=== PATIENT | female | born 1965 | race Caucasian/White ===

== ENCOUNTER → 2016-10-24 | Outpatient (CLI) | payer BC ==
[~2016-10-24] MED LIST: BIOT1CAP8 PO; FLX5 PO; INSHRIE; INSUINJ17 SC; LIDO5DIS10 TD; MAGN250T3 PO; MAGN250T8 PO; NF656 TD; TPN IV; TRAM-10 PO; [UNRECOGNIZED DRUG - CODE] IV; [UNRECOGNIZED DRUG - OTHER] INJ
[2016-10-24 13:26] LABS: BLOOD UREA NITROGEN 50 mg/dl (7-18); BUN/CREATININE RATIO 72.2 (10-20); CALCIUM 8.6 mg/dl (8.5-10.1); CARBON DIOXIDE 29 mmol/L (21-32); CHLORIDE 100 mmol/L (98-107); CREATININE 0.69 mg/dl (0.60-1.20); GLUCOSE 107 mg/dl (70-99); MAGNESIUM 2.2 mg/dl (1.8-2.4); PHOSPHORUS 3.1 mg/dl (2.5-4.9); POTASSIUM 4.2 mmol/L (3.5-5.1); SODIUM 139 mmol/L (136-145)
== END | disposition home or self-care (01) ==
LOC: C.LABSPEC 12:03
PROVIDERS: ATTEND Internal Medicine
DX: K56.60 Unspecified intestinal obstruction (principal)

== ENCOUNTER 2016-11-06 09:55 | Emergency (ER) | payer BC ==
[~2016-11-06] VITALS: Ht 162.6 cm; Wt 45.1 kg
[~2016-11-06 09:55] MED LIST changes: -INSHRIE; -MAGN250T8 PO; -NF656 TD
[2016-11-06 10:25] VITALS: TEMP 36.8; Ht 162.6 cm; Wt 45.1 kg
[2016-11-06] MEDS ORDERED: HYDROmorphone INJ 1 MG/ML SYR IM STA ×2 (10:47→13:10)
--- NOTE | 2016-11-06 10:53 | EMERGENCY ROOM VISIT NOTE ---
History Report prepared by Valeibteodora: Leti Young Under the Supervision of: Dr. Jorge Munson M.D. First contact with patient: 10:39 Chief Complaint: OTHER COMPLAINT Stated Complaint: PORT LEAKING History of Present Illness The patient is a 51 year old female who presents to the Emergency Room with complaints of persistent issues with her medi-port for the past several weeks. She is accompanied by her . She reports the right side of her dual port has been leaking fluid when she has IV fluids or medications administered. This morning around 0300 she was supposed to have TPN administered when she noticed it was leaking again. The port was placed by Dr. Lopez of [facility] [place] in November 2014. The patient states her home health nurses have called his office, but Dr. Lopez has not actually seen her for the issue of leaking yet. The patient also complains of some back pain today, but notes she currently has 2 spinal compression fractures. 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 A total of 6 systems reviewed and were otherwise negative. 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 (5) Fever (6) Malabsorption syndrome (7) Pancreatitis (8) Pancreatitis (9) Peg tube (10) Pelvic Abscess (11) Radiation Gastroenterit (12) SEPSIS MOST LIKELY DUE TO LINE INFECTION Family History Cancer Diabetes mellitus Hypertension Social History Smoking Status: Never Smoker Alcohol Use: none Drug Use: none Marital Status: Housing Status: lives with family Occupation Status: unemployed Current/Historical Medications Scheduled Biotin (Biotin), 5,000 MCG PO BID Famotidine (Famotidine), 20 MG INJ HS Insulin Human Regular (Humulin R), 14 UNITS DAILY Magnesium (Magnesium 250 mg), 1 TAB PO QPM [Tpn], 2,300 ML IV HS Scheduled PRN Lidocaine (Lidoderm Patch 5%), 1 PATCH TD ONAMOFFPM PRN for Pain Tramadol (Ultram), 50 MG PO Q4H PRN for Pain Miscellaneous Medications Dextrose W/ Sodium Chloride (Dextrose 2.5%/Nacl 0.45%) Allergies Coded Allergies: Ibuprofen (Verified Allergy, Unknown, RINGING IN EARS,PARTIAL LOSS HEARING , 11/06/16) Ketorolac Tromethamine (Verified Allergy, Unknown, ROARING SOUND IN EARS, 11/06/16) NSAIDs (Verified Allergy, Unknown, RINGING IN EARS, 11/06/16) Zoledronic Acid (Verified Allergy, Unknown, FLU LIKE SYMPTOMS SEVERE HEADACHE, 11/06/16) Promethazine (Verified Adverse Reaction, Mild, RESTLESS LEGS, 11/06/16) Alprazolam (Verified Adverse Reaction, Unknown, LOSS OF HEARING, 11/06/16) ringing in ears Aspirin (Verified Adverse Reaction, Unknown, RINGING IN EARS,PARTIAL HEARING LOSS, 11/06/16) RINGING IN EARS,PARTIAL HEARING LOSS Ketorolac (Verified Adverse Reaction, Unknown, ROARING IN EARS, 11/06/16) ROARING SOUND IN EARS Vancomycin (Verified Adverse Reaction, Unknown, ZACHERY SYNDROME, 11/06/16) Physical Exam Vital Signs Date Time Temp Pulse Resp B/P Pulse Ox O2 Delivery O2 Flow Rate FiO2 11/06/16 14:40 83 18 110/64 95 11/06/16 14:15 83 18 110/64 95 Room Air 11/06/16 12:14 75 18 122/71 100 Room Air 11/06/16 10:25 36.8 98 18 125/65 97 Room Air Physical Exam GENERAL: Patient is unwell appearing and in mild distress. HEENT: No acute trauma, normocephalic atraumatic, mucous membranes moist, no nasal congestion, no scleral icterus. NECK: No stridor, no adenopathy, no meningismus, trachea is midline. LUNGS: No dyspnea. Clear to auscultation and equal bilaterally. No wheeze, no rhonchi. CHEST: Port in place in right upper chest, currently accessed on the right side. HEART: Regular rate and rhythm. No murmurs, rubs, gallops appreciated. EXTREMITIES: Normal motion all extremities, no cyanosis, no edema. NEUROLOGIC: Alert and oriented, no acute motor or sensory deficits, no focal weakness, cranial nerves grossly intact. SKIN: No rash, no jaundice, no diaphoresis. Medical Decision & Procedures Medications Administered Medications (Trade) Dose Ordered Sig/Blas Route Start Time Stop Time Status Last Admin Dose Admin Hydromorphone HCl (Dilaudid Inj) 1 mg NOW STAT IM 11/06/16 10:47 11/06/16 10:48 DC 11/06/16 11:48 1 MG Hydromorphone HCl (Dilaudid Inj) 1 mg NOW STAT IM 11/06/16 13:10 11/06/16 13:11 DC 11/06/16 13:19 1 MG ED Course 1041: The patient was evaluated in room B8. A complete history and physical exam was performed. 1047: Dilaudid 1 mg IM. 1050: I have requested nursing contact the IV team. 1130: IV team is requesting that Activase be ordered for the patient. 1130: Activase Cathflo 2 mg IV. 1250: I reevaluated the patient. She is requesting more pain medication. I will place orders. 1310: Dilaudid 1 mg IM. 1355: I reevaluated the patient. She is feeling better. I discussed her results and discharge instructions and she verbalized complete understanding and agreement. Medical Decision Pleasant 51 yr old female with right upper chest double access med port that right side have been leaking and left side won't flush. IV team down to evaluate and Activase given with improvement in flow. Able to use left port without issue. Monitored over a few hours with continued working. Given Periodic IM dilaudid for chornic back pain worsened from laying in bed. Makes clear this is not unusual for her and no neuro deficits. Impression Primary Impression: Central line clotted Scribe Attestation The scribe's documentation has been prepared under my direction and personally reviewed by me in its entirety. I confirm that the note above accurately reflects all work, treatment, procedures, and medical decision making performed by me. Departure Information Dispostion Home / Self-Care Referrals Villa Carpenter M.D. (PCP) Patient Instructions My [facility] Additional Instructions Please follow up with your Vascular Surgeon or General Surgeon for further evaluation of your port. Return if bleeding, infection, difficulty breathing, or other concerns. Problem Qualifiers Primary Impression: Central line clotted Encounter type: initial encounter Qualified Codes: T82.594A - Other mechanical complication of infusion catheter, initial encounter
[2016-11-06] MEDS ORDERED: ALTEPLASE, RECOMBINANT 1 MG/ML 2 ML VIAL IV ONE (11:30)
[2016-11-06] MEDS ORDERED: INSHRIE (13:34)
[2016-11-06] MEDS ORDERED: NF656 TD (13:34)
[2016-11-06 14:40] VITALS: BP 110/64; PULSE 83; O2SAT 95
== END 2016-11-06 14:40 | disposition home or self-care (01) ==
LOC: C.EDB 09:57
DX: T82.594A Other mechanical complication of infusion catheter, initial encounter (principal); Y84.9 Medical procedure, unspecified as the cause of abnormal reaction of the patient, or of later complication, without mention of misadventure at the time of the procedure; K90.9 Intestinal malabsorption, unspecified; K85.90 Acute pancreatitis without necrosis or infection, unspecified; Z80.9 Family history of malignant neoplasm, unspecified; Z83.3 Family history of diabetes mellitus; Z82.49 Family history of ischemic heart disease and other diseases of the circulatory system; Z79.4 Long term (current) use of insulin; Z79.899 Other long term (current) drug therapy

== ENCOUNTER 2016-11-18 09:33 | Emergency (ER) | payer BC ==
[~2016-11-18] VITALS: Ht 162.6 cm; Wt 44.9 kg
[~2016-11-18 09:33] MED LIST changes: -FLX5 PO; +INSHRIE; -INSUINJ17 SC; -LIDO5DIS10 TD; +NF656 TD
[2016-11-18 09:40] VITALS: TEMP 36.8; Ht 162.6 cm; Wt 44.9 kg
[2016-11-18] MEDS ORDERED: HYDROmorphone INJ 1 MG/ML SYR IM ONE (11:15)
--- NOTE | 2016-11-18 14:03 | DIAGNOSTIC IMAGING REPORT ---
A-PORT CHECK CLINICAL HISTORY: LEAKING CATH, DOUBLE LUMEN CATH COMPARISON STUDY: None FLUOROSCOPY TIME: 0.3 minutes. FINDINGS: The right side of the port was initially cannulated. Retrograde passage of contrast noted was noted to the tip of the catheter. At this point only a trace amount of contrast was seen traversing the tip of the lumen of the catheter. This appearance consistent with that of a fibrin sheath formation distally. Was subsequently cannulized, retrograde passage of contrast is noted throughout the bulk of the catheter of the left port Only a trace amount of contrast is seen distal to the tip of the catheter of the left port. High-grade fibrin sheath distally is again suspected. The proximal aspects of the right as well as left catheter were patent. There is no evidence for contrast extravasation. IMPRESSION: 1. Right port and catheter demonstrate near occlusion at its distal aspect with only a trace amount of contrast traversing the tip of the catheter. 2. The bulk of the right catheter length is intact no evidence for extravasation. 3. The left port and catheter also demonstrate near occlusive change at its distal aspect. Only a trace amount of contrast seen to pass the distal tip of the catheter 4. The dual lumen catheter therefore demonstrates near occlusion at and are immediately adjacent to the inferior tip of the catheter lumens, consistent with that of fibrin sheath formation. 5. The catheters and port, show no evidence for breakage or extravasation Electronically signed by: Leonard Becerra M.D. 11/18/2016 2:02 PM Dictated Date/Time: 11/18/2016 1:54 PM
[2016-11-18] MEDS ORDERED: ALTEPLASE, RECOMBINANT 1 MG/ML 2 ML VIAL IV ONE ×2 (15:00→15:01)
[2016-11-18] MEDS ORDERED: HYDROmorphone INJ 1 MG/ML SYR IM STA (15:44)
--- NOTE | 2016-11-18 17:23 | EMERGENCY ROOM VISIT NOTE ---
ED Visit Note First contact with patient: 09:44 Chief Complaint: My A port is leaking. History of Present Illness: Ms. Lopez is a 51-year-old white female who ambulates into the ED accompanied by her complaining of leakage from her A port. Historically patient reports this is been a chronic issue and has been occurring for at least the last 6-7 weeks. She reports she has been seen by her vascular surgery and her home health team. Or records indicate that she was here on November 06 and the port appear occluded and she received Activase. This cleared report she was discharged home. Patient reports over the last week whenever and attempted to put IV fluids until report she has noticed that it has been leaking. She reports not severely but multiple drops during her infusion. She has not identified any aggravating or alleviating factors related to the leakage. She reports her home IV team has manipulated her port site and has not been able to stop the leaking. She does report occasionally the leakage is slightly blood-tinged. She denies any associated symptoms. Additionally during her stay in emergency department she reports she is having ongoing back pain related to 2 spinal compression fractures. Review of Systems: As noted above in history of present illness. All body systems were reviewed and found to be negative as noted above. 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 Dextrose 2.5%/Nacl 0.45% (Dextrose W/ Sodium Chloride) 1 Inj Inj 08/08/16 Reported 40 meq potassium Ultram (Tramadol HCl) 50 Mg Tab 50 Mg PO Q4H PRN 08/03/15 Reported Biotin 1 Mg Cap 5,000 Mcg PO BID 10/06/14 Reported Famotidine 10 Mg/Ml Inj 20 Mg INJ HS 06/02/14 Reported INJECT INTO TPN BAG ONCE DAILY. Magnesium 250 mg (Magnesium) Unknown Strength Tab 1 Tab PO AMPM 10/22/13 Reported [Tpn] 2,300 Ml IV HS 05/21/09 Reported INFUSE DAILY OVER 11 HOURS. 1 BAG WITH LIPIDS AND 6 BAGS WITHOUT LIPIDS. TOTAL = 7 BAGS. Allergies to Medications: Ibuprofen, ketorolac tromethamine, NSAIDs, promethazine, alprazolam, aspirin, vancomycin. Social History: Patient is not employed; she lives with her and feels safe in her home environment; she denies tobacco and alcohol use. Physical Examination: Vital Signs: Date Time Temp Pulse Resp B/P Pulse Ox O2 Delivery O2 Flow Rate FiO2 11/18/16 15:58 91 20 107/83 99 Room Air 11/18/16 13:02 79 17 134/72 99 11/18/16 11:06 85 18 133/74 99 Room Air 11/18/16 09:40 36.8 101 17 130/59 98 Room Air GENERAL: 51-year-old female in mild distress due to pain, nontoxic-appearing, afebrile and hemodynamically stable. NEUROLOGICAL: Awake, alert and oriented to person, place and time. Answering questions appropriately and following commands. Normal gait. Good hand eye coordination. No focal motor sensory deficits. SKIN: Warm, dry and pink. No soft tissue eruptions or trauma noted. HEENT: Atraumatic and normocephalic. PERRLA. Sclera white and conjunctiva pink. Pharynx is nonerythematous or edematous. No lymphadenopathy. Trachea midline. No jugular venous distention. BACK: Moderate tenderness over the lower thoracic and lumbar bony spine with no swelling, ecchymosis or step-offs. There is also moderate tenderness throughout the paraspinous muscles without palpable spasm. No CVA tenderness. THORAX: Lungs sounds are clear to auscultation and equal bilaterally with symmetrical chest wall. No wheezing, rales or rhonchi. HEART: Regular rate and rhythm. No gallops, rubs or murmurs are appreciated. ABDOMEN: Flat, soft and nontender. Positive bowel sounds in all quadrants. No guarding, rigidity or organomegaly. EXTREMITIES: Moves all extremities well on command and with purpose. All distal neurovascular statuses are intact and equal bilaterally. ED Course: Patient is assessed as noted above. IV team was consulted; verbally reported that there was leakage when they attempted to inject fluids into the port. Patient's case was consulted with Ms. Antonieta Anderson, PAC (Dr. Lopez, vascular surgery, physician photographer assistant). She recommended a contrast A port study. A Port Check: Was reviewed by myself and read by the radiologist showing the right catheter demonstrates near occlusion at its distal aspect with only a trace amount of contrast transvenous inferior to the tip of the Catheter. No evidence of extravasation. Left for catheter also demonstrates near occlusive at an arm ED adjacent to the inferior tip of the catheter movements consistent with primary and she formation. The catheter is in port show no evidence of breakage or extravasation. Patient's case was reconsulted with Ms. Anderson. She reports after reviewing the case with Dr. Lopez that both sides of her poor should receive 2 mg of Activase so her fiber is occlusion could be resolved. She also reported that if the occlusion was not resolved she should be admitted to the hospital for port revision. Patient received 2 mg of Activase on both sides of her A Port by the IV team; it was reported that the ports should be observed and tested in 4 hours. Patient's case was consulted with case management for possible admission. Patient's care was transferred to Slade Agudelo PA-C at the end of my shift pending reevaluation of the port. Patient was educated about today's findings. Clinical Impression: A port occlusion. Ongoing back pain. Disposition and Plan: Please see Mr. Slade Agudelo's PAC notes and orders for final disposition and plan.
--- NOTE | 2016-11-18 21:49 | EMERGENCY ROOM VISIT NOTE ---
ED Visit Note First contact with patient: 17:23 Patient care was assumed from Benja Moe PA-C at the time of shift change. Please see . Rafita's dictation for full history of present illness and Emergency Department course prior to my assumption of care. In short, the patient has a port that is malfunctioning. IV team has been contacted and they were able to reestablish full functionality of the port. The patient is felt to be stable for discharge home. She evidently has upcoming appointments with her surgeon, and was asked keep these appointments. She was otherwise invited back to the ER with any new, worsening, or concerning symptoms. 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 Status: Chronic (5) Malabsorption syndrome Status: Chronic (6) Pancreatitis Status: Chronic (7) Pancreatitis Status: Resolved (8) Peg tube Status: Chronic (9) Radiation Gastroenterit Status: Chronic Current/Historical Medications Scheduled Biotin (Biotin), 5,000 MCG PO BID Famotidine (Famotidine), 20 MG INJ HS Insulin Human Regular (Humulin R), 14 UNITS DAILY Magnesium (Magnesium 250 mg), 1 TAB PO AMPM [Tpn], 2,300 ML IV HS Scheduled PRN Lidocaine (Lidoderm Patch 5%), 1 PATCH TD ONAMOFFPM PRN for Pain Tramadol (Ultram), 50 MG PO Q4H PRN for Pain Miscellaneous Medications Dextrose W/ Sodium Chloride (Dextrose 2.5%/Nacl 0.45%) Allergies Coded Allergies: Ibuprofen (Verified Allergy, Unknown, RINGING IN EARS,PARTIAL LOSS HEARING , 11/06/16) Ketorolac Tromethamine (Verified Allergy, Unknown, ROARING SOUND IN EARS, 11/06/16) NSAIDs (Verified Allergy, Unknown, RINGING IN EARS, 11/06/16) Zoledronic Acid (Verified Allergy, Unknown, FLU LIKE SYMPTOMS SEVERE HEADACHE, 11/06/16) Promethazine (Verified Adverse Reaction, Mild, RESTLESS LEGS, 11/06/16) Alprazolam (Verified Adverse Reaction, Unknown, LOSS OF HEARING, 11/06/16) ringing in ears Aspirin (Verified Adverse Reaction, Unknown, RINGING IN EARS,PARTIAL HEARING LOSS, 11/06/16) RINGING IN EARS,PARTIAL HEARING LOSS Ketorolac (Verified Adverse Reaction, Unknown, ROARING IN EARS, 11/06/16) ROARING SOUND IN EARS Vancomycin (Verified Adverse Reaction, Unknown, ZACHERY SYNDROME, 11/06/16) Vital Signs Date Time Temp Pulse Resp B/P Pulse Ox O2 Delivery O2 Flow Rate FiO2 11/18/16 19:12 80 18 129/73 100 Room Air 11/18/16 17:26 81 17 103/67 99 Room Air 11/18/16 15:58 91 20 107/83 99 Room Air 11/18/16 13:02 79 17 134/72 99 11/18/16 11:06 85 18 133/74 99 Room Air 11/18/16 09:40 36.8 101 17 130/59 98 Room Air Medications Administered Medications (Trade) Dose Ordered Sig/Blas Route Start Time Stop Time Status Last Admin Dose Admin Hydromorphone HCl (Dilaudid Inj) 1 mg ONE ONCE IM 11/18/16 11:15 11/18/16 11:16 DC 11/18/16 11:08 1 MG Hydromorphone HCl (Dilaudid Inj) 1 mg NOW STAT IM 11/18/16 15:44 11/18/16 15:46 DC 11/18/16 15:55 1 MG Departure Information Impression Primary Impression: Central line clotted Dispostion Home / Self-Care Condition GOOD Referrals Carlos Verdugo D.O. (PCP) Forms HOME CARE DOCUMENTATION FORM, IMPORTANT VISIT INFORMATION Patient Instructions My [facility] Additional Instructions You were seen and evaluated today on an emergency basis only. This is not a substitute for, or an effort to provide, complete comprehensive medical care. It is not possible to recognize and treat all injuries or illnesses in a single emergency department visit. For this reason it is recommended that you followup with your surgeon for ongoing care and evaluation. Continue medications as prescribed You are welcome to return to the emergency department anytime with new, worsening, or concerning symptoms.
[2016-11-18 21:56] VITALS: BP 135/76; PULSE 75; O2SAT 99
== END 2016-11-18 21:56 | disposition home or self-care (01) ==
LOC: C.EDB 09:35
DX: T82.898A Other specified complication of vascular prosthetic devices, implants and grafts, initial encounter (principal); Y84.9 Medical procedure, unspecified as the cause of abnormal reaction of the patient, or of later complication, without mention of misadventure at the time of the procedure; K90.9 Intestinal malabsorption, unspecified; K86.1 Other chronic pancreatitis; Z85.9 Personal history of malignant neoplasm, unspecified; Z79.899 Other long term (current) drug therapy

== ENCOUNTER → 2016-11-21 | Outpatient (CLI) | payer BC ==
[~2016-11-21] MED LIST changes: +MAGN250T8 PO; +PLEC3TAB
[2016-11-21 14:16] LABS: BLOOD UREA NITROGEN 45 mg/dl (7-18); BUN/CREATININE RATIO 69.8 (10-20); CALCIUM 8.9 mg/dl (8.5-10.1); CARBON DIOXIDE 29 mmol/L (21-32); CHLORIDE 99 mmol/L (98-107); CREATININE 0.64 mg/dl (0.60-1.20); GLUCOSE 98 mg/dl (70-99); MAGNESIUM 2.3 mg/dl (1.8-2.4); POTASSIUM 4.5 mmol/L (3.5-5.1); SODIUM 137 mmol/L (136-145)
[2016-11-21 14:17] LABS: PHOSPHORUS 3.7 mg/dl (2.5-4.9)
--- NOTE | 2016-12-02 08:15 | CODING QUERY NO DIAGNOSIS ---
TREATMENT RENDERED WITHOUT A DIAGNOSIS : 1965 To promote full compliance with coding requirements relating to patient care, physician participation is requested in all cases of proofsheet corrector uncertainty. Please assist us with providing a diagnosis/symptom for the test(s) below: A diagnosis/symptom was not documented on your Order. A valid diagnosis/symptom is required to bill all insurances. Please remember that we are unable to code a diagnosis of rule out, probable, possible, questionable, or suspected. Tests that require a diagnosis: DOS: 11/21/16 * MAGNESIUM DIAGNOSIS: * PHOSPHORUS DIAGNOSIS: * PARTIAL RENAL PROFILE DIAGNOSIS: * CALCIUM, IONIZED DIAGNOSIS: Provider Signature: Date: Thank you Michelle Nicholas Health Information Management Once completed, please kindly fax back to [phone] For questions please call [phone]
== END | disposition home or self-care (01) ==
LOC: C.LABSPEC 13:14
PROVIDERS: ATTEND Internal Medicine
DX: E83.50 Unspecified disorder of calcium metabolism (principal)

== ENCOUNTER 2016-12-03 10:11 | Emergency (ER) | payer BC ==
[~2016-12-03] VITALS: Ht 162.6 cm; Wt 44.8 kg
[~2016-12-03 10:11] MED LIST changes: -MAGN250T8 PO; -PLEC3TAB
[2016-12-03 10:24] VITALS: TEMP 36.9; Ht 162.6 cm; Wt 44.8 kg
[2016-12-03] MEDS ORDERED: LORAZEPAM 2 MG/ML 1 ML VIAL IV STA (11:12)
[2016-12-03] MEDS ORDERED: HYDROmorphone INJ 1 MG/ML SYR IV ONE (11:15)
--- NOTE | 2016-12-03 11:15 | EMERGENCY ROOM VISIT NOTE ---
History Report prepared by Pankaj: Karan Mitchell Under the Supervision of: Dr. Ranjan Tejada M.D. First contact with patient: 11:05 Chief Complaint: OTHER COMPLAINT Stated Complaint: A PORT IS LEAKING ONLY SOURCE OF HYDRATION History of Present Illness The patient is a 51 year old female who presents to the Emergency Room with complaints of recurrent A-port leakage since yesterday. The patient has a double port. The right side was leaking pink fluid last night that appeared to contain blood. She also noticed some leakage from the left side. Neither side of the port is currently leaking. The patient was in the ED 13 days ago for the same complaint. The patient has been receiving TPN since 2001. She has a history of radiation therapy for cancer as well as back surgeries. The patient currently complains of back pain secondary to compression fractures. She denies chest pain, shortness of breath, or abdominal pain. Source of History: patient Onset: yesterday Position: other (right A-port) Quality: other (pink discharge) Timing: other (recurrent) Associated Symptoms: No SOB, No abdominal pain, No chest pain Review of Systems All systems have been listed, reviewed, and are negative other than those previously mentioned. Please see Additional Medical History Sheet. 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 (5) Fever (6) Malabsorption syndrome (7) Pancreatitis (8) Pancreatitis (9) Peg tube (10) Pelvic Abscess (11) Radiation Gastroenterit (12) SEPSIS MOST LIKELY DUE TO LINE INFECTION Family History Cancer Diabetes mellitus Hypertension Social History Smoking Status: Never Smoker Alcohol Use: none Drug Use: none Marital Status: Housing Status: lives with family Occupation Status: unemployed Current/Historical Medications Scheduled Biotin (Biotin), 5,000 MCG PO BID Famotidine (Famotidine), 20 MG INJ HS Insulin Human Regular (Humulin R), 14 UNITS DAILY Magnesium (Magnesium 250 mg), 1 TAB PO AMPM Tpn Infusion (Tpn Infusion), 2,300 ML IV HS Scheduled PRN Lidocaine (Lidoderm Patch 5%), 1 PATCH TD ONAMOFFPM PRN for Pain Tramadol (Ultram), 50 MG PO Q4H PRN for Pain Miscellaneous Medications Dextrose W/ Sodium Chloride (Dextrose 2.5%/Nacl 0.45%) Allergies Coded Allergies: Ibuprofen (Verified Allergy, Unknown, RINGING IN EARS,PARTIAL LOSS HEARING , 12/03/16) Ketorolac Tromethamine (Verified Allergy, Unknown, ROARING SOUND IN EARS, 12/03/16) NSAIDs (Verified Allergy, Unknown, RINGING IN EARS, 12/03/16) Zoledronic Acid (Verified Allergy, Unknown, FLU LIKE SYMPTOMS SEVERE HEADACHE, 12/03/16) Promethazine (Verified Adverse Reaction, Mild, RESTLESS LEGS, 12/03/16) Alprazolam (Verified Adverse Reaction, Unknown, LOSS OF HEARING, 12/03/16) ringing in ears Aspirin (Verified Adverse Reaction, Unknown, RINGING IN EARS,PARTIAL HEARING LOSS, 12/03/16) RINGING IN EARS,PARTIAL HEARING LOSS Ketorolac (Verified Adverse Reaction, Unknown, ROARING IN EARS, 12/03/16) ROARING SOUND IN EARS Vancomycin (Verified Adverse Reaction, Unknown, ZACHERY SYNDROME, 12/03/16) Physical Exam Vital Signs Date Time Temp Pulse Resp B/P Pulse Ox O2 Delivery O2 Flow Rate FiO2 12/03/16 12:35 88 18 140/70 97 Room Air 12/03/16 10:24 36.9 96 18 125/76 97 Room Air Physical Exam GENERAL: Patient awake, alert, oriented x 3. Patient follows commands. Patient does not appear toxic. Patient is adequately hydrated and well- nourished. SKIN: No erythema, pallor, cyanosis or rash HEENT: Normal head, pupils equal, reactive to light and accommodation. LUNGS: Clear to auscultation. No wheezes, no rales, no rhonchi. HEART: No murmurs. No gallops. No rubs CHEST: Port in place upper chest. ABDOMEN: Multiple old well-healed scars, peg tube in place. EXTREMITIES: No signs of trauma. No pedal or pretibial edema. No calf or thigh tenderness. NEUROLOGIC: Cranial nerves II-XII within normal limits. No gross motor sensory function deficits. Medical Decision & Procedures Medications Administered Medications (Trade) Dose Ordered Sig/Blas Route Start Time Stop Time Status Last Admin Dose Admin Lorazepam (Ativan Inj) 1 mg NOW STAT IV 12/03/16 11:12 12/03/16 11:13 DC 12/03/16 12:28 1 MG Hydromorphone HCl (Dilaudid Inj) 0.5 mg STK-MED ONCE .ROUTE 12/03/16 12:20 12/03/16 12:23 DC 12/03/16 12:27 0.5 MG ED Course 1108: Past medical records reviewed. The patient was evaluated in room B6. A complete history and physical examination was performed. 1112: Ativan 1 mg IV. 1115: Dilaudid 0.5 mg IV. 1234: IV team successfully fixed the leak. 1250: Reevaluated the patient. She seemed to be doing better. She will be discharged. Medical Decision Diagnoses considered include port malfunction vs infection. Examination of the port site does not reveal infection. There is some leakage there. IV team evaluated the patient and the port. This resulted in at least a temporary fix. It was not leaking at time of departure. The patient will need to follow-up with Gen. surgery to evaluate the need for changing the port. Impression Primary Impression: Vascular port complication Scribe Attestation The scribe's documentation has been prepared under my direction and personally reviewed by me in its entirety. I confirm that the note above accurately reflects all work, treatment, procedures, and medical decision making performed by me. Departure Information Dispostion Home / Self-Care Referrals Carlos Verdugo D.O. (PCP) Nicho Beltran M.D. Forms HOME CARE DOCUMENTATION FORM, IMPORTANT VISIT INFORMATION Patient Instructions My [facility] Additional Instructions Follow-up with Dr. Beltran regarding your port. Continue all of your current medications and TPN as prescribed.
[2016-12-03] MEDS ORDERED: TPN IV (11:21)
[2016-12-03] MEDS ORDERED: HYDROmorphone INJ 0.5 MG/0.5 ML SYR ONE (12:20)
[2016-12-03 12:35] VITALS: BP 140/70; PULSE 88; O2SAT 97
== END 2016-12-03 13:10 | disposition home or self-care (01) ==
LOC: C.EDB 10:12
DX: T82.514A Breakdown (mechanical) of infusion catheter, initial encounter (principal); Y84.8 Other medical procedures as the cause of abnormal reaction of the patient, or of later complication, without mention of misadventure at the time of the procedure; Z79.4 Long term (current) use of insulin

== ENCOUNTER 2016-12-12 10:34 | Emergency (ER) | payer BC ==
[~2016-12-12] VITALS: Ht 162.6 cm; Wt 43.8 kg
[2016-12-12 10:43] VITALS: TEMP 36.6; Ht 162.6 cm; Wt 43.8 kg
[2016-12-12] MEDS ORDERED: ONDANSETRON INJ 2 MG/ML 2 ML VIAL IV STA (11:03)
[2016-12-12] MEDS ORDERED: MoRPHine SULFATE 4 MG/ML 1 ML CARP\\VIAL IV STA (11:03)
[2016-12-12] MEDS ORDERED: HYDROmorphone INJ 0.5 MG/0.5 ML SYR IV STA (11:29)
[2016-12-12] MEDS: SODIUM CHLORIDE 0.9% 1000ML 1,000 ML IV STA ×2 (11:58→12:20)
--- NOTE | 2016-12-12 12:27 | DIAGNOSTIC IMAGING REPORT ---
CHEST ONE VIEW PORTABLE CLINICAL HISTORY: port in right chest dyspnea COMPARISON STUDY: 07/31/2016 FINDINGS: Central catheter in superior vena cava. No evidence pneumothorax. Lungs are clear. Diaphragms smooth. IMPRESSION: No acute process. Central catheter ends in the superior vena cava. Electronically signed by: Leonard Becerra M.D. 12/12/2016 12:25 PM Dictated Date/Time: 12/12/2016 12:25 PM
[2016-12-12] MEDS ORDERED: ALTEPLASE, RECOMBINANT 1 MG/ML 2 ML VIAL IV ONE ×2 (12:45→13:15)
[2016-12-12] MEDS ORDERED: LORAZEPAM 2 MG/ML 1 ML VIAL IV STA (12:45)
[2016-12-12 14:39] VITALS: BP 120/59; PULSE 78; O2SAT 100
--- NOTE | 2016-12-12 17:12 | EMERGENCY ROOM VISIT NOTE ---
History Report prepared by Pankaj: Adriel Deras Under the Supervision of: Dr. Karlo Mireles D.O. (Adriel Deras) First contact with patient: 10:47 Chief Complaint: OTHER COMPLAINT Stated Complaint: LEAKING A-PORT (SORE) History of Present Illness The patient is a 51 year old female who presents to the Emergency Room with complaints of an on and off leaking A-port since March. The patient states that the port was put in November 2014. The patient states that she has an A-port because she had small bowel damage and a bowel obstruction for the past 2 and a half years. The patient has a history of radiation therapy for cancer and back surgeries. She states that now she does not have bowel movements, and she has to drain the port every 2-4 hours every day when she eats or drinks. She states that she gets TPN since 2001 and hydration daily. The patient states that the port leaks around three times per week, and then it gets plugged, and this helps for a week or two. The patient states that she has been to the ER every 2 weeks or so for the past months. The patient is additionally complaining of nausea. She states that she has a peg button in, and she is getting a new one soon. Source of History: patient Onset: march Position: other (A-port) Quality: other (leaking port) Timing: other (on and off) Associated Symptoms: + abdominal pain, + nausea Review of Systems See HPI for pertinent positives & negatives. A total of 10 systems reviewed and were otherwise negative. 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 (5) Fever (6) Malabsorption syndrome (7) Pancreatitis (8) Pancreatitis (9) Peg tube (10) Pelvic Abscess (11) Radiation Gastroenterit (12) SEPSIS MOST LIKELY DUE TO LINE INFECTION Family History Cancer Diabetes mellitus Hypertension Social History Smoking Status: Former Smoker Alcohol Use: none Drug Use: none Marital Status: Housing Status: lives with family Occupation Status: unemployed Current/Historical Medications Scheduled Biotin (Biotin), 5,000 MCG PO BID Famotidine (Famotidine), 20 MG INJ HS Insulin Human Regular (Humulin R), 14 UNITS DAILY Magnesium (Magnesium 250 mg), 1 TAB PO AMPM Tpn Infusion (Tpn Infusion), 2,300 ML IV HS Scheduled PRN Lidocaine (Lidoderm Patch 5%), 1 PATCH TD ONAMOFFPM PRN for Pain Tramadol (Ultram), 50 MG PO Q4H PRN for Pain Miscellaneous Medications Dextrose W/ Sodium Chloride (Dextrose 2.5%/Nacl 0.45%), IV Allergies Coded Allergies: Ibuprofen (Verified Allergy, Unknown, RINGING IN EARS,PARTIAL LOSS HEARING , 12/12/16) Ketorolac Tromethamine (Verified Allergy, Unknown, ROARING SOUND IN EARS, 12/12/16) NSAIDs (Verified Allergy, Unknown, RINGING IN EARS, 12/12/16) Zoledronic Acid (Verified Allergy, Unknown, FLU LIKE SYMPTOMS SEVERE HEADACHE, 12/12/16) Promethazine (Verified Adverse Reaction, Mild, RESTLESS LEGS, 12/12/16) Alprazolam (Verified Adverse Reaction, Unknown, LOSS OF HEARING, 12/12/16) ringing in ears Aspirin (Verified Adverse Reaction, Unknown, RINGING IN EARS,PARTIAL HEARING LOSS, 12/12/16) RINGING IN EARS,PARTIAL HEARING LOSS Ketorolac (Verified Adverse Reaction, Unknown, ROARING IN EARS, 12/12/16) ROARING SOUND IN EARS Vancomycin (Verified Adverse Reaction, Unknown, ZACHERY SYNDROME, 12/12/16) Physical Exam Vital Signs Date Time Temp Pulse Resp B/P Pulse Ox O2 Delivery O2 Flow Rate FiO2 12/12/16 14:39 78 16 120/59 100 Room Air 12/12/16 10:43 36.6 101 20 19/62 96 Room Air Physical Exam GENERAL: Sittting up in bed, no acute distress, non-toxic EYE EXAM: normal conjunctiva OROPHARYNX: no exudate, no erythema, lips, buccal mucosa, and tongue normal and mucous membranes are moist NECK: supple, no nuchal rigidity, no adenopathy, non-tender LUNGS: Clear to auscultation. Normal chest wall mechanics HEART: no murmurs, S1 normal and S2 normal CHEST: Port located in the right chest without surrounding erythema or leakage. ABDOMEN: Multiple old incisions with peg tube in place. Abdomen soft, non-tender , normo-active bowel sounds, no masses, no rebound or guarding. BACK: Back is symmetrical on inspection and there is no deformity, no midline tenderness, no CVA tenderness. SKIN: no rashes and no bruising UPPER EXTREMITIES: upper extremities are grossly normal. LOWER EXTREMITIES: No pitting edema. NEURO EXAM: Normal sensorium, cranial nerves II-XII grossly intact, normal speech, no gross weakness of arms, no gross weakness of legs. Gross sensation intact. Medical Decision & Procedures ER Provider Diagnostic Interpretation: Xray results per the radiologist and my interpretation. CHEST ONE VIEW PORTABLE CLINICAL HISTORY: port in right chest dyspnea COMPARISON STUDY: 07/31/2016 FINDINGS: Central catheter in superior vena cava. No evidence pneumothorax. Lungs are clear. Diaphragms smooth. IMPRESSION: No acute process. Central catheter ends in the superior vena cava. Electronically signed by: Leonard Becerra M.D. 12/12/2016 12:25 PM Dictated Date/Time: 12/12/2016 12:25 PM Medications Administered Medications (Trade) Dose Ordered Sig/Blas Route Start Time Stop Time Status Last Admin Dose Admin Sodium Chloride (Nss 1000ml) 1,000 ml @ 999 mls/hr Q1H1M STAT IV 12/12/16 11:03 12/12/16 12:03 DC 12/12/16 12:20 999 MLS/HR Ondansetron HCl (Zofran Inj) 4 mg NOW STAT IV 12/12/16 11:03 12/12/16 11:05 DC 12/12/16 11:56 4 MG Hydromorphone HCl (Dilaudid Inj) 0.5 mg NOW STAT IV 12/12/16 11:29 12/12/16 11:31 DC 12/12/16 11:56 0.5 MG Alteplase, Recombinant (Activase Cathflo) 2 mg ONE ONCE IV 12/12/16 12:45 12/12/16 12:46 DC 12/12/16 12:45 2 MG Lorazepam (Ativan Inj) 0.5 mg NOW STAT IV 12/12/16 12:45 12/12/16 12:46 DC 12/12/16 13:07 0.5 MG Alteplase, Recombinant (Activase Cathflo) 2 mg ONE ONCE IV 12/12/16 13:15 12/12/16 13:16 DC 12/12/16 13:22 2 MG ED Course ED COURSE: Vital signs were reviewed and showed Tachycardia The patients medical record was reviewed The above diagnostic studies were performed and reviewed. ED treatments and interventions as stated above. 1047: The patient was evaluated in room B3. A complete history and physical examination was performed. 1103: Zofran Inj 4mg IV, Morphine Sulfate Inj 4mg IV, Sodium Chloride 1000 ml @ 999 mls/hr IV 1129: Dilaudid Inj 0.5mg IV 1201: I reevaluated the patient, and IV team was in there 1243: I discussed the patient's case with Sophia Muhammad PA-C, and she recommended Activase through the port as last time it was clogged. 1245: Ativan Inj 0.5mg IV, Activase Cathflo 2mg IV 1315: Activase Cathflo 2mg IV 1437: There was blood return on both port sites and she is going to follow up with her PCP. 1449: Upon reevaluation, the patient is feeling better.I discussed my findings with the patient and she understands and agrees with the treatment plan. Based on the patients age, coexisting illnesses, exam and lab findings the decision to treat as an outpatient was made. The patient remained stable while under my care. The patient appeared well at the time of discharge. Medical Decision Patient is a 51-year-old female who presents the ER for leaking of her port along her right chest. She uses daily since 2001. Patient has not bites at this time. She was given Ativan and Dilaudid a she was tearful crying complaining of her chronic back pain and that she is very anxious. She was requesting a PICC line since she has been having this problem since this past February or March. Dr. Lopez placed the port and discussed my findings with Sophia from vascular surgery who recommended giving alteplase and if he clears out she can be followed up as an outpatient. IV team gave alteplase and then had complete blood return from both ports. Her chest x-ray was unremarkable. Patient understood the risk and benefits. Patient was discharged follow-up with general surgery and/or Dr. Lopez from vascular surgery. Discussed with Pt concerning signs and symptoms to watch out for. Pt was instructed to follow up with their PCP and discussed with the patient their option to return to the ED at anytime for persistent or worsening symptoms. The appropriate anticipatory guidance and out-patient management, including indications for return to the emergency department, were explained at length to the patient and understood. Consults Time Called: 1222 Consulting Physician: Sophia Muhammad PA-C Returned Call: 1248 I discussed the patient's case with Sophia Muhammad PA-C, and she recommended Activase through the port as last time it was clogged. Impression Primary Impression: Vascular port complication Scribe Attestation The scribe's documentation has been prepared under my direction and personally reviewed by me in its entirety. I confirm that the note above accurately reflects all work, treatment, procedures, and medical decision making performed by me. Departure Information Dispostion Home / Self-Care Referrals Villa Carpenter M.D. (PCP) Forms HOME CARE DOCUMENTATION FORM, IMPORTANT VISIT INFORMATION, WORK / SCHOOL INSTRUCTIONS Patient Instructions My [facility] Additional Instructions Please follow up with your primary care doctor or if you are a student [facility] services with in the next 24 hours. Any worsening of your symptoms, please return to the ED immediately. This includes unable to flush the port, leaking around the port, redness around the port, or any other concerning signs or symptoms from her standpoint. Please follow up with your vascular surgeon and Gen. surgery for your port. Please do not drive, drink or operate heavy machinery for the remainder of the day. Problem Qualifiers Primary Impression: Vascular port complication Encounter type: initial encounter Qualified Codes: T82.9XXA - Unspecified complication of cardiac and vascular prosthetic device, implant and graft, initial encounter
[2017-08-02] MEDS ORDERED: PLEC3TAB (09:55)
== END 2016-12-12 15:03 | disposition home or self-care (01) ==
LOC: C.EDB 10:35
DX: T82.9XXA Unspecified complication of cardiac and vascular prosthetic device, implant and graft, initial encounter (principal); X58.XXXA Exposure to other specified factors, initial encounter; K56.60 Unspecified intestinal obstruction; K86.1 Other chronic pancreatitis; Z87.19 Personal history of other diseases of the digestive system; Z87.891 Personal history of nicotine dependence; Z79.4 Long term (current) use of insulin; Z79.899 Other long term (current) drug therapy; Z88.1 Allergy status to other antibiotic agents; Z88.6 Allergy status to analgesic agent; Z88.8 Allergy status to other drugs, medicaments and biological substances; Z80.9 Family history of malignant neoplasm, unspecified; Z83.3 Family history of diabetes mellitus; Z82.49 Family history of ischemic heart disease and other diseases of the circulatory system

== ENCOUNTER → 2016-12-13 | Day surgery (SDC) | payer BC ==
[2016-12-06 13:06] VITALS: Ht 162.6 cm; Wt 43.6 kg
[~2016-12-13] VITALS: Ht 162.6 cm; Wt 43.6 kg
[~2016-12-13] MED LIST changes: +MAGN250T8 PO; +ONDANSETRON INJ 2 MG/ML 2 ML VIAL IV PRN; +PLEC3TAB
--- NOTE | 2016-12-13 08:18 | Endo History and Physical ---
History & Physical Date of Service: Dec 13, 2016. Chief Complaint: PEG TUBE CHANGE Referring Physician: dr. stover History of Present Illness Patient presents for feeding tube change today. Past Medical History Gastrointestinal Disorder, Reflux, Liver Disease Past Surgical History Hx Cardiac Surgery: No Hx Internal Defibrillator: No Hx Pacemaker: No Hx Abdominal Surgery: Yes (PEG TUBE PLACEMENT, LINETTE, RUPTURED BOWEL REPAIR) Hx of Implantable Prosthesis: No Hx Post-Op Nausea and Vomiting: No Hx Cancer Surgery: No Hx Thoracic Surgery: No Hx Orthopedic: Yes (SPINAL SURGERY X2) Hx Urinary Tract Surgery: No Family History Colon CA Social History Smoking Status: Former Smoker Hx Substance Use: No Hx Alcohol Use: No Allergies Coded Allergies: Ibuprofen (Verified Allergy, Unknown, RINGING IN EARS,PARTIAL LOSS HEARING , 12/12/16) Ketorolac Tromethamine (Verified Allergy, Unknown, ROARING SOUND IN EARS, 12/13/16) NSAIDs (Verified Allergy, Unknown, RINGING IN EARS, 12/13/16) Zoledronic Acid (Verified Allergy, Unknown, FLU LIKE SYMPTOMS SEVERE HEADACHE, 12/13/16) Promethazine (Verified Adverse Reaction, Mild, RESTLESS LEGS, 12/13/16) Alprazolam (Verified Adverse Reaction, Unknown, LOSS OF HEARING, 12/13/16) ringing in ears Aspirin (Verified Adverse Reaction, Unknown, RINGING IN EARS,PARTIAL HEARING LOSS, 12/13/16) RINGING IN EARS,PARTIAL HEARING LOSS Ketorolac (Verified Adverse Reaction, Unknown, ROARING IN EARS, 12/13/16) ROARING SOUND IN EARS Vancomycin (Verified Adverse Reaction, Unknown, ZACHERY SYNDROME, 12/13/16) Current Medications Reported Home Medications Medications Dose Route/Sig Max Daily Dose Days Date Category Dose Instructions Tpn Infusion (Total Parenteral Nutrition) 1 Ea Inj 2,300 Ml IV HS 12/03/16 Reported infuse daily over 11 hours. 1 bag with lipids. 6 without. Lidoderm Patch 5% (Lidocaine) 1 Ea Tdsy 1 Patch TD ONAMOFFPM PRN 11/06/16 Reported Humulin R (Insulin Human Regular) 100 Units/Ml Susp 14 Units DAILY 11/06/16 Reported INJECTS INTO TPN BAG DAILY. Dextrose 2.5%/Nacl 0.45% (Dextrose W/ Sodium Chloride) 1 Inj Inj IV 08/08/16 Reported 40 meq potassium 1 BAG 4HOURS EVERY DAY Ultram (Tramadol HCl) 50 Mg Tab 50 Mg PO Q4H PRN 08/03/15 Reported Biotin 1 Mg Cap 5,000 Mcg PO BID 10/06/14 Reported Famotidine 10 Mg/Ml Inj 20 Mg INJ HS 06/02/14 Reported INJECT INTO TPN BAG ONCE DAILY. Magnesium 250 mg (Magnesium) Unknown Strength Tab 1 Tab PO AMPM 10/22/13 Reported Vital Signs Weight (Kilograms): 43.64 Height (Feet): 5 Height (Inches): 4 Physical Exam General Appearance: no apparent distress Respiratory/Chest: Auscultation: breath sounds normal Cardiovascular: Heart Auscultation: RRR Abdomen: Inspection & Palpation: soft Assessment and Plan patient for feeding tube change
[2016-12-13 08:41] VITALS: BP 115/65; PULSE 81; O2SAT 98
--- NOTE | 2016-12-13 08:44 | Discharge Instructions ---
Endoscopy Patient Instructions Date / Procedure Performed Dec 13, 2016. Percutaneous Endoscopic Gastrotomy (P.E.G) Tube Replacement / Removal Allergy Information Coded Allergies: Ibuprofen (Verified Allergy, Unknown, RINGING IN EARS,PARTIAL LOSS HEARING , 12/12/16) Ketorolac Tromethamine (Verified Allergy, Unknown, ROARING SOUND IN EARS, 12/13/16) NSAIDs (Verified Allergy, Unknown, RINGING IN EARS, 12/13/16) Zoledronic Acid (Verified Allergy, Unknown, FLU LIKE SYMPTOMS SEVERE HEADACHE, 12/13/16) Promethazine (Verified Adverse Reaction, Mild, RESTLESS LEGS, 12/13/16) Alprazolam (Verified Adverse Reaction, Unknown, LOSS OF HEARING, 12/13/16) ringing in ears Aspirin (Verified Adverse Reaction, Unknown, RINGING IN EARS,PARTIAL HEARING LOSS, 12/13/16) RINGING IN EARS,PARTIAL HEARING LOSS Ketorolac (Verified Adverse Reaction, Unknown, ROARING IN EARS, 12/13/16) ROARING SOUND IN EARS Vancomycin (Verified Adverse Reaction, Unknown, ZACHERY SYNDROME, 12/13/16) Home Medication List Scheduled Biotin (Biotin), 5,000 MCG PO BID Famotidine (Famotidine), 20 MG INJ HS Insulin Human Regular (Humulin R), 14 UNITS DAILY Magnesium (Magnesium 250 mg), 1 TAB PO AMPM Tpn Infusion (Tpn Infusion), 2,300 ML IV HS Scheduled PRN Lidocaine (Lidoderm Patch 5%), 1 PATCH TD ONAMOFFPM PRN for Pain Tramadol (Ultram), 50 MG PO Q4H PRN for Pain Miscellaneous Medications Dextrose W/ Sodium Chloride (Dextrose 2.5%/Nacl 0.45%), IV Discharge Date / Findings Dec 13, 2016. Button Changed Today Medication Instructions Restart Stopped Medication(s): Reported Home Medications Medications Dose Route/Sig Max Daily Dose Days Date Category Dose Instructions Tpn Infusion (Total Parenteral Nutrition) 1 Ea Inj 2,300 Ml IV HS 12/03/16 Reported infuse daily over 11 hours. 1 bag with lipids. 6 without. Lidoderm Patch 5% (Lidocaine) 1 Ea Tdsy 1 Patch TD ONAMOFFPM PRN 11/06/16 Reported Humulin R (Insulin Human Regular) 100 Units/Ml Susp 14 Units DAILY 11/06/16 Reported INJECTS INTO TPN BAG DAILY. Dextrose 2.5%/Nacl 0.45% (Dextrose W/ Sodium Chloride) 1 Inj Inj IV 08/08/16 Reported 40 meq potassium 1 BAG 4HOURS EVERY DAY Ultram (Tramadol HCl) 50 Mg Tab 50 Mg PO Q4H PRN 08/03/15 Reported Biotin 1 Mg Cap 5,000 Mcg PO BID 10/06/14 Reported Famotidine 10 Mg/Ml Inj 20 Mg INJ HS 06/02/14 Reported INJECT INTO TPN BAG ONCE DAILY. Magnesium 250 mg (Magnesium) Unknown Strength Tab 1 Tab PO AMPM 10/22/13 Reported Provider Instructions Activity Recommendations * Resume regular activity . Diet Recommendations * Resume previous diet. * Advance diet as tolerated. * Before each feeding, aspirate the tube for residual gastric contents. Hold feedings for residual of 50 ml or more. * Elevate the head of the bed during and after feedings for 30-60 minutes . Medication Instructions * Resume usual medications. * Always flush the tube with warm water after administration of medication. Follow-Up Information Button change in 4 to 6 months or sooner if needed. Anesthesia Information What You Should Know You have had a procedure that required some medicine to reduce anxiety and discomfort. This treatment is called moderate sedation. After receiving the treatment, you may be sleepy, but you will be able to breathe on your own. The effects of the treatment may last for several hours. Follow these instructions along with Activity/Diet recommendations noted above: * Do NOT do anything where dizziness or clumsiness would be dangerous. * Rest quietly at home today, then you can be up and about tomorrow. * Have a responsible person stay with you the rest of today. * You may have had an I.V. today. If so, you may take the dressing off later today. Symptoms Additional Instructions If you experience any of the following symptoms after your procedure seek medical attention at your closest Emergency Room and/or call your primary care physician immediately: * Severe abdominal pain or bloating * Fever greater than 101.1 degrees within 24 hours after the procedure * Uncontrolled nausea and vomiting Avoid all tobacco products. If you need help to stop smoking, call [place]'s FREE QUIT LINE at . Your discharge instructions were prepared by provider Mo Mercedes. Patient Instructions Signature Page Caroline Lpoez Patient (or Guardian) Signature/Date: I have read and understand the instructions given to me by my caregivers. Caregiver/RN/Doctor Signature/Date: The above-named patient and/or guardian has received patient instructions on this date. + Original Patient Signature Page (only) stays with chart. Please make copy for patient.
--- NOTE | 2016-12-13 08:52 | GI REPORT ---
Procedure Date: 12/13/2016 8:45 AM Procedure: Non-endoscopic Tube Procedure Indications: Replace PEG tube Medicines: None Complications: No immediate complications. Estimated blood loss: Minimal. Estimated Blood Loss: Estimated blood loss was minimal. Procedure: Pre-Anesthesia Assessment: - Prior to the procedure, a History and Physical was performed, and patient medications, allergies and sensitivities were reviewed. The patient's tolerance of previous anesthesia was reviewed. - The risks and benefits of the procedure and the sedation options and risks were discussed with the patient. All questions were answered and informed consent was obtained. - Patient identification and proposed procedure were verified prior to the procedure by the physician and the nurse. The procedure was verified in the pre-procedure area. - Pre-procedure physical examination revealed no contraindications to sedation. - ASA Grade Assessment: II - A patient with mild systemic disease. - After reviewing the risks and benefits, the patient was deemed in satisfactory condition to undergo the procedure. - Prior to the procedure, no anesthesia or sedation was planned. - The physical status of the patient was re-assessed after the procedure. After obtaining informed consent, the site was prepped and the procedure was performed.The procedure was accomplished without difficulty. The patient tolerated the procedure well. Findings: Upon external examination, leakage was found surrounding the stomal opening. The gastrostomy tube was clogged. The existing gastrostomy site was examined and cleaned. The existing button was removed with a stylet. A 20 Fr button gastrostomy tube (Symwave Low Profile Button) was lubricated and placed into the existing gastrostomy port with the stylet. Estimated blood loss was minimal. Impression: - No specimens collected. - The previously removed buttone was replaced with a 20 Fr button gastrostomy tube. Recommendation: - Discharge patient to home (ambulatory). - Observe patient's clinical course. Mo Mercedes D.O. Mo Mercedes DO 12/13/2016 8:52:34 AM This report has been signed electronically. Note Initiated On: 12/13/2016 8:45 AM I attest to the content of the Intraoperative Record and orders documented therein, exceptions below
== END | disposition home or self-care (01) ==
LOC: C.GI 08:19
PROVIDERS: ATTEND Internal Medicine Gastroenterology
DX: K94.23 Gastrostomy malfunction (principal); K21.9 Gastro-esophageal reflux disease without esophagitis; K76.9 Liver disease, unspecified; Z80.0 Family history of malignant neoplasm of digestive organs; Z98.890 Other specified postprocedural states; Z87.891 Personal history of nicotine dependence; Z88.0 Allergy status to penicillin; Z88.1 Allergy status to other antibiotic agents; Z88.5 Allergy status to narcotic agent; Z88.8 Allergy status to other drugs, medicaments and biological substances

== ENCOUNTER 2016-12-15 10:23 | Emergency (ER) | payer BC ==
[~2016-12-15] VITALS: Ht 162.6 cm; Wt 43.6 kg
[~2016-12-15 10:23] MED LIST changes: -MAGN250T8 PO; -ONDANSETRON INJ 2 MG/ML 2 ML VIAL IV PRN; -PLEC3TAB
[2016-12-15 10:46] VITALS: TEMP 36.7; Ht 162.6 cm; Wt 43.6 kg
[2016-12-15] MEDS ORDERED: HYDROmorphone INJ 1 MG/ML SYR IV STA (11:21)
[2016-12-15] MEDS ORDERED: LORAZEPAM 2 MG/ML 1 ML VIAL IV STA (11:21)
[2016-12-15] MEDS ORDERED: ONDANSETRON INJ 2 MG/ML 2 ML VIAL IV STA (11:36)
--- NOTE | 2016-12-15 12:36 | EMERGENCY ROOM VISIT NOTE ---
History First contact with patient: 11:00 Chief Complaint: OTHER COMPLAINT Stated Complaint: LEAKING BLOOD TINGED FLUID FROM A PORT AGAIN History of Present Illness The patient is a 51 year old female who presents to the Emergency Room with complaints of leaking from her port. The patient has a double port and states that she has had issues with it since March of last year. 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 She receives TPN and hydration through her port. She reports that this morning, the port began to leak a blood-tinged fluid. She states that when she connects her hydration, the port leaks from the opposite side. She has been seen here in the past but has not followed up with Dr. Lopez in the office. She also reports chronic back pain. She denies any fevers, puslike drainage or chest pain. Review of Systems A complete 10-point Review of Systems was discussed with the patient, with pertinent positives and negatives listed in the History of Present Illness. All remaining Review of Systems questions can be considered negative unless otherwise specified. 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 (5) Fever (6) Malabsorption syndrome (7) Pancreatitis (8) Pancreatitis (9) Peg tube (10) Pelvic Abscess (11) Radiation Gastroenterit (12) SEPSIS MOST LIKELY DUE TO LINE INFECTION Family History Cancer Diabetes mellitus Hypertension Social History Smoking Status: Never Smoker Alcohol Use: none Drug Use: none Marital Status: Housing Status: lives with family Occupation Status: unemployed Current/Historical Medications Scheduled Biotin (Biotin), 5,000 MCG PO BID Famotidine (Famotidine), 20 MG INJ HS Insulin Human Regular (Humulin R), 14 UNITS DAILY Magnesium (Magnesium 250 mg), 1 TAB PO AMPM Tpn Infusion (Tpn Infusion), 2,300 ML IV HS Scheduled PRN Lidocaine (Lidoderm Patch 5%), 1 PATCH TD ONAMOFFPM PRN for Pain Tramadol (Ultram), 50 MG PO Q4H PRN for Pain Miscellaneous Medications Dextrose W/ Sodium Chloride (Dextrose 2.5%/Nacl 0.45%), IV Allergies Coded Allergies: Ibuprofen (Verified Allergy, Unknown, RINGING IN EARS,PARTIAL LOSS HEARING , 12/15/16) Ketorolac Tromethamine (Verified Allergy, Unknown, ROARING SOUND IN EARS, 12/15/16) NSAIDs (Verified Allergy, Unknown, RINGING IN EARS, 12/15/16) Zoledronic Acid (Verified Allergy, Unknown, FLU LIKE SYMPTOMS SEVERE HEADACHE, 12/15/16) Promethazine (Verified Adverse Reaction, Mild, RESTLESS LEGS, 12/15/16) Alprazolam (Verified Adverse Reaction, Unknown, LOSS OF HEARING, 12/15/16) ringing in ears Aspirin (Verified Adverse Reaction, Unknown, RINGING IN EARS,PARTIAL HEARING LOSS, 12/15/16) RINGING IN EARS,PARTIAL HEARING LOSS Ketorolac (Verified Adverse Reaction, Unknown, ROARING IN EARS, 12/15/16) ROARING SOUND IN EARS Vancomycin (Verified Adverse Reaction, Unknown, ZACHERY SYNDROME, 12/15/16) Physical Exam Vital Signs Date Time Temp Pulse Resp B/P Pulse Ox O2 Delivery O2 Flow Rate FiO2 12/15/16 12:47 80 16 120/66 94 Room Air 12/15/16 10:46 36.7 100 20 127/72 97 Room Air Physical Exam VITALS: Vitals are noted on the nurse's note and reviewed by myself. Vital signs stable. GENERAL: This is a 51-year-old female, in no acute distress, nondiaphoretic, well-developed well-nourished. SKIN: There is a double a port in place in the right anterior chest. There is a small amount of serous, blood-tinged drainage pooling within the dressing. HEENT: Normocephalic. PERRLA. EOMI. Nares patent. Mucous membranes moist. Neck is supple without nuchal rigidity. HEART: Regular rate and rhythm without murmurs gallops or rubs. LUNGS: Clear to auscultation bilaterally without wheezes, rales or rhonchi. MUSCULOSKELETAL: Mild tenderness to palpation over the thoracic and lumbar spine. NEURO: Patient was alert and oriented to person place and time. Medical Decision & Procedures Medications Administered Medications (Trade) Dose Ordered Sig/Blas Route Start Time Stop Time Status Last Admin Dose Admin Lorazepam (Ativan Inj) 1 mg NOW STAT IV 12/15/16 11:21 12/15/16 11:23 DC 12/15/16 11:43 1 MG Hydromorphone HCl (Dilaudid Inj) 1 mg NOW STAT IV 12/15/16 11:21 12/15/16 11:23 DC 12/15/16 11:43 1 MG Ondansetron HCl (Zofran Inj) 4 mg NOW STAT IV 12/15/16 11:36 12/15/16 11:38 DC 12/15/16 11:43 4 MG Medical Decision Differential diagnosis includes clogged port, port malfunction, infection, among others. The patient was evaluated as above. She requested medication for her chronic back pain and anxiety and was given 1 mg Dilaudid IV and 1 mg Ativan, which she has received in the past. IV team was contacted and felt that the patient's port was malfunctioning and needed to be replaced. They were unable to fix the leak, but did state that the port flushed normally and they did have blood return. There were no signs of infection on exam. I did contact Dr. Lopez, who felt that the patient's port should be replaced given her recurrent issues and stated that he would schedule her within the next week. The patient was informed of all findings. She was instructed to change the dressing frequently to prevent infection. She verbalized understanding of my assessment and treatment plan and was discharged home in good condition. Impression Primary Impression: Vascular port complication Departure Information Dispostion Home / Self-Care Condition GOOD Referrals Villa Carpenter M.D. (PCP) Miguel Lopez M.D. Patient Instructions My [facility] Additional Instructions Follow-up with Dr. Lopez. Call their office if you do not hear from them. Return for any further complications. Problem Qualifiers Primary Impression: Vascular port complication
[2016-12-15 12:47] VITALS: BP 120/66; PULSE 80; O2SAT 94
[2017-08-02] MEDS ORDERED: PLEC3TAB (09:55)
== END 2016-12-15 12:48 | disposition home or self-care (01) ==
LOC: C.EDB 10:26 → C.EDD 12:48
DX: T82.339A Leakage of unspecified vascular graft, initial encounter (principal); X58.XXXA Exposure to other specified factors, initial encounter; K58.9 Irritable bowel syndrome, unspecified; Z86.19 Personal history of other infectious and parasitic diseases; Z92.3 Personal history of irradiation; Z79.4 Long term (current) use of insulin; Z79.899 Other long term (current) drug therapy; Z88.6 Allergy status to analgesic agent; Z88.8 Allergy status to other drugs, medicaments and biological substances

== ENCOUNTER → 2016-12-19 | Outpatient (CLI) | payer BC ==
[~2016-12-19] MED LIST changes: +MAGN250T8 PO; +PLEC3TAB
[2016-12-19 10:51] LABS: ALT/SGPT 60 U/L (12-78); AST/SGOT 63 U/L (15-37); BLOOD UREA NITROGEN 56 mg/dl (7-18); BUN/CREATININE RATIO 73.6 (10-20); CARBON DIOXIDE 30 mmol/L (21-32); CHLORIDE 99 mmol/L (98-107); CREATININE 0.76 mg/dl (0.60-1.20); GLUCOSE 102 mg/dl (70-99); MAGNESIUM 2.5 mg/dl (1.8-2.4); POTASSIUM 4.5 mmol/L (3.5-5.1); SODIUM 135 mmol/L (136-145)
[2016-12-19 10:54] LABS: ALB/GLOB RATIO 0.7 (0.9-2); ALKALINE PHOSPHATASE 172 U/L (45-117); PHOSPHORUS 3.4 mg/dl (2.5-4.9)
--- NOTE | 2016-12-20 09:02 | CODING QUERY NO DIAGNOSIS ---
TREATMENT RENDERED WITHOUT A DIAGNOSIS To promote full compliance with coding requirements relating to patient care, physician participation is requested in all cases of drink waiter uncertainty. Please assist us with providing a diagnosis/symptom for the test(s) below: A diagnosis/symptom was not documented on your Order. A valid diagnosis/symptom is required to bill all insurances. Please remember that we are unable to code a diagnosis of rule out, probable, possible, questionable, or suspected. Tests that require a diagnosis: DOS: 12/19/16 * CMP DIAGNOSIS: * MAGNESIUM DIAGNOSIS: * PHOSPHORUS DIAGNOSIS: * CALCIUM DIAGNOSIS: Provider Signature: Date: Thank you Radha Canales [facility] Information Management Once completed, please kindly fax back to [phone] For questions please call [phone]
== END | disposition home or self-care (01) ==
LOC: C.LABSPEC 10:18
PROVIDERS: ATTEND Internal Medicine
DX: E46 Unspecified protein-calorie malnutrition (principal)

== ENCOUNTER 2016-12-23 13:41 | Emergency (ER) | payer BC ==
[~2016-12-23] VITALS: Ht 162.6 cm; Wt 43.0 kg
[~2016-12-23 13:41] MED LIST changes: -MAGN250T8 PO; -PLEC3TAB
[2016-12-23 13:52] VITALS: TEMP 36.7; Ht 162.6 cm; Wt 43.0 kg
--- NOTE | 2016-12-23 15:02 | EMERGENCY ROOM VISIT NOTE ---
History Report prepared by Pankaj: Leona West Under the Supervision of: Dr. Kaden Trammell D.O. First contact with patient: 14:44 Chief Complaint: OTHER COMPLAINT Stated Complaint: LEAKING A PORT, DEHYDRATED, BOWEL BLOCKAGE History of Present Illness The patient is a 51 year old female who presents to the Emergency Room with complaints of persistent leaking around her port. The patient has a port in her right anterior chest wall which she uses for IV hydration. She has a history of malabsorption because of small bowel problems. The patient states her port started leaking recently. She was seen by [facility] and was sent to the emergency department for an evaluation. She also complains of dizziness. She states that she's had decreased input. The patient denies having any chest pain or shortness of breath. She denies having any fevers or chills. The patient was seen here multiple times in the past for similar complaints. She states on previous visits we were able to re-access her port and this seemed to take care of the problem. Source of History: patient Onset: Recently Position: chest (Right anterior chest wall ) Timing: other (Persistent) Modifying Factors (Worsening): other (None) Associated Symptoms: No SOB, No chest pain, No chills, No fevers Note: Additional associated symptoms include dizziness and decreased input. Review of Systems See HPI for pertinent positives & negatives. A total of 10 systems reviewed and were otherwise negative. 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 (5) Fever (6) Malabsorption syndrome (7) Pancreatitis (8) Pancreatitis (9) Peg tube (10) Pelvic Abscess (11) Radiation Gastroenterit (12) SEPSIS MOST LIKELY DUE TO LINE INFECTION Family History Cancer Diabetes mellitus Hypertension Social History Smoking Status: Former Smoker Alcohol Use: none Drug Use: none Marital Status: Housing Status: lives with family Occupation Status: unemployed Current/Historical Medications Scheduled Biotin (Biotin), 5,000 MCG PO BID Famotidine (Famotidine), 20 MG INJ HS Insulin Human Regular (Humulin R), 14 UNITS DAILY Magnesium Oxide (Mg Supplement (Magnesium), 250 MG PO DAILY Tpn Infusion (Tpn Infusion), 2,300 ML IV HS Scheduled PRN Lidocaine (Lidoderm Patch 5%), 1 PATCH TD ONAMOFFPM PRN for Pain Tramadol (Ultram), 50 MG PO Q4H PRN for Pain Miscellaneous Medications Dextrose W/ Sodium Chloride (Dextrose 2.5%/Nacl 0.45%), IV Allergies Coded Allergies: Ibuprofen (Verified Allergy, Unknown, RINGING IN EARS,PARTIAL LOSS HEARING , 12/23/16) Ketorolac Tromethamine (Verified Allergy, Unknown, ROARING SOUND IN EARS, 12/23/16) NSAIDs (Verified Allergy, Unknown, RINGING IN EARS, 12/23/16) Zoledronic Acid (Verified Allergy, Unknown, FLU LIKE SYMPTOMS SEVERE HEADACHE, 12/23/16) Promethazine (Verified Adverse Reaction, Mild, RESTLESS LEGS, 12/23/16) Alprazolam (Verified Adverse Reaction, Unknown, LOSS OF HEARING, 12/23/16) ringing in ears Aspirin (Verified Adverse Reaction, Unknown, RINGING IN EARS,PARTIAL HEARING LOSS, 12/23/16) RINGING IN EARS,PARTIAL HEARING LOSS Ketorolac (Verified Adverse Reaction, Unknown, ROARING IN EARS, 12/23/16) ROARING SOUND IN EARS Vancomycin (Verified Adverse Reaction, Unknown, ZACHERY SYNDROME, 12/23/16) Physical Exam Vital Signs Date Time Temp Pulse Resp B/P Pulse Ox O2 Delivery O2 Flow Rate FiO2 12/23/16 16:24 88 18 138/84 98 12/23/16 15:14 80 16 125/77 99 Room Air 12/23/16 13:52 36.7 100 18 147/73 97 Room Air Physical Exam GENERAL: Patient is awake alert in no acute distress patient is resting comfortably and showing no signs of anxiety EYES: The conjunctivae are clear. The pupils are round and reactive. EARS, NOSE, MOUTH AND THROAT: The nose is without any evidence of any deformity. Mucous membranes are moist tongue is midline NECK: The neck is nontender and supple. RESPIRATORY: Normal respiratory effort is noted there is no evidence of wheezing rhonchi or rales CARDIOVASCULAR: Regular rate and rhythm noted there no murmurs rubs or gallops normal S1 normal S2 GASTROINTESTINAL: The abdomen is soft. Bowel sounds are present in all quadrants. Abdomen is nontender MUSCULOSKELETAL/EXTREMITIES: There is no evidence of gross deformity full range of motion is noted in the hips and shoulders SKIN: There is no obvious evidence of any rash. There is a port in the right anterior chest wall. There is no redness swelling noted. NEUROLOGIC: Patient is awake alert and oriented x3 strength is symmetric patellar reflexes are 2+ bilaterally Medical Decision & Procedures ED Course 1435: The patient was evaluated in room A10. A complete history and physical examination were performed. 1610: Upon reevaluation, the patient's symptoms have resolved. I discussed the results and treatment plan with the patient. She verbalized agreement of the treatment plan. The patient was discharged home. Medical Decision Prior records/ancillary studies reviewed. Triage Nursing notes reviewed. The patient's history was concerning for dizziness. Differential diagnosis: Etiologies such as benign positional vertigo, dehydration, hypovolemia, anemia, tumor, infection, hypoglycemia, electrolyte abnormalities, cardiac sources, intracerebral event, toxicologic, neurologic, as well as others were entertained. The patient is a 51-year-old female who presented to emergency department for a malfunctioning port. The patient has a port that she uses for IV hydration as well as electrolyte replacement because of short gut syndrome. The patient has been seen in our facility previously for similar complaints. IV team was called to the emergency apartment and they were able to re-access the port. It seemed to be working well. She was encouraged to continue using all IV fluids and electrolyte replacement as before. She was also encouraged to follow-up with her primary care physician for further evaluation but return to the emergency apartment immediately if symptoms change worsen or the need arises. Impression Primary Impression: Malfunction of venous port Scribe Attestation The scribe's documentation has been prepared under my direction and personally reviewed by me in its entirety. I confirm that the note above accurately reflects all work, treatment, procedures, and medical decision making performed by me. Departure Information Dispostion Home / Self-Care Referrals Villa Carpenter M.D. (PCP) Forms HOME CARE DOCUMENTATION FORM, IMPORTANT VISIT INFORMATION, WORK / SCHOOL INSTRUCTIONS Patient Instructions My [facility] Additional Instructions Continue all medications as prescribed. Follow-up with your family doctor as scheduled.
[2016-12-23] MEDS ORDERED: MAGN250T8 PO (15:07)
[2016-12-23 16:24] VITALS: BP 138/84; PULSE 88; O2SAT 98
[2017-08-02] MEDS ORDERED: PLEC3TAB (09:55)
== END 2016-12-23 16:25 | disposition home or self-care (01) ==
LOC: C.EDB 13:42 → C.EDA 16:25
DX: T82.898A Other specified complication of vascular prosthetic devices, implants and grafts, initial encounter (principal); X58.XXXA Exposure to other specified factors, initial encounter; K85.90 Acute pancreatitis without necrosis or infection, unspecified; K56.60 Unspecified intestinal obstruction; Z86.19 Personal history of other infectious and parasitic diseases; Z79.899 Other long term (current) drug therapy; Z87.891 Personal history of nicotine dependence; Z88.3 Allergy status to other anti-infective agents; Z88.6 Allergy status to analgesic agent; Z88.8 Allergy status to other drugs, medicaments and biological substances; Z80.9 Family history of malignant neoplasm, unspecified; Z83.3 Family history of diabetes mellitus; Z82.49 Family history of ischemic heart disease and other diseases of the circulatory system

== ENCOUNTER 2016-12-24 14:59 | Emergency (ER) | payer BC ==
[~2016-12-24] VITALS: Ht 162.6 cm; Wt 43.5 kg
[~2016-12-24 14:59] MED LIST changes: -MAGN250T3 PO; +MAGN250T8 PO
[2016-12-24 15:06] VITALS: TEMP 36.4; Ht 162.6 cm; Wt 43.5 kg
[2016-12-24] MEDS ORDERED: HEPARIN SOD (PORCINE) 1000 UNIT/ML 10 ML VIAL ONE (16:57)
[2016-12-24 17:17] VITALS: BP 125/74; PULSE 84; O2SAT 99
--- NOTE | 2016-12-24 17:44 | EMERGENCY ROOM VISIT NOTE ---
History First contact with patient: 15:13 Chief Complaint: DEHYDRATION Stated Complaint: DEHYDRATION,A-PORT IS LEAKING Nursing Triage Summary: states that when she gives herself hydration or tpn through her port it leaks fluid-sometimes clear, sometimes blood tinged has an appointment with Dr. Beltran on to see about getting a new port has a PEG button to decompress her abdomen r/t malabsorption disorder, uses it to decompress her abdomen History of Present Illness The patient is a 51 year old female who returns to the ED with complaints of persistent leaking around her A-port. She is requesting that a PICC line be placed until she can be seen by her new surgeon, Dr. Beltran, on , 12/29. The patient has A-port in her right anterior chest wall which she uses for IV hydration and TPN. She has a history of malabsorption because of short gut syndrome. The patient states she has had problems with the port since March, but was only recently able to have Dr. Lopez agree to change the port. She was unhappy with her interaction with him, and has elected to see Dr. Beltran instead. She was here yesterday afternoon for the same complaint. She states that she was evaluated by the IV team, who changed the needle and dressing. She states that the port began leaking prior to discharge from our facility, but she was able to tolerate her TPN overnight until she stood up at 0630 this morning, at which point it began to leak slightly. When she attempted to hang her IV hydration at 1200 today, it leaked into the bandage and completely saturated her clothes. She maintains that she did not receive any of the IV hydration as she is now beginning to feel a headache, fatigue and having double and blurry vision which she states is consistent with dehydration. The patient has been seen here multiple times in the past for similar complaints. Review of Systems Review of systems as per HPI. All other systems reviewed were negative. At least 6 systems reviewed. 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 See Problem List. Family History Cancer Diabetes mellitus Hypertension Social History Smoking Status: Former Smoker Alcohol Use: none Drug Use: none Marital Status: Housing Status: lives with family Occupation Status: unemployed Current/Historical Medications Scheduled Biotin (Biotin), 5,000 MCG PO BID Famotidine (Famotidine), 20 MG INJ HS Insulin Human Regular (Humulin R), 14 UNITS DAILY Magnesium Oxide (Mg Supplement (Magnesium), 250 MG PO DAILY Tpn Infusion (Tpn Infusion), 2,300 ML IV HS Scheduled PRN Lidocaine (Lidoderm Patch 5%), 1 PATCH TD ONAMOFFPM PRN for Pain Tramadol (Ultram), 50 MG PO Q4H PRN for Pain Miscellaneous Medications Dextrose W/ Sodium Chloride (Dextrose 2.5%/Nacl 0.45%), IV Allergies Coded Allergies: Ibuprofen (Verified Allergy, Unknown, RINGING IN EARS,PARTIAL LOSS HEARING , 12/24/16) Ketorolac Tromethamine (Verified Allergy, Unknown, ROARING SOUND IN EARS, 12/24/16) NSAIDs (Verified Allergy, Unknown, RINGING IN EARS, 12/24/16) Zoledronic Acid (Verified Allergy, Unknown, FLU LIKE SYMPTOMS SEVERE HEADACHE, 12/24/16) Promethazine (Verified Adverse Reaction, Mild, RESTLESS LEGS, 12/24/16) Alprazolam (Verified Adverse Reaction, Unknown, LOSS OF HEARING, 12/24/16) ringing in ears Aspirin (Verified Adverse Reaction, Unknown, RINGING IN EARS,PARTIAL HEARING LOSS, 12/24/16) RINGING IN EARS,PARTIAL HEARING LOSS Ketorolac (Verified Adverse Reaction, Unknown, ROARING IN EARS, 12/24/16) ROARING SOUND IN EARS Vancomycin (Verified Adverse Reaction, Unknown, ZACHERY SYNDROME, 12/24/16) Physical Exam Vital Signs Date Time Temp Pulse Resp B/P Pulse Ox O2 Delivery O2 Flow Rate FiO2 12/24/16 17:17 84 14 125/74 99 Room Air 12/24/16 15:49 88 14 137/48 12/24/16 15:06 36.4 91 16 147/73 98 Room Air Physical Exam CONSTITUTIONAL: Patient is a well-appearing 51-year-old white female who was awake and alert and laying on the gurney in no acute distress. Her vital signs are stable and she is afebrile. INTEGUMENTARY: Examination of the right upper chest show the eighth port in place with dressing intact. There is no signs of erythema. No tenderness. Medical Decision & Procedures Medications Administered Medications (Trade) Dose Ordered Sig/Blas Route Start Time Stop Time Status Last Admin Dose Admin Heparin Sodium (Porcine) (Heparin 100 Unit/ml 5ml Flush) 5 ml STK-MED ONCE .ROUTE 12/24/16 17:00 12/24/16 17:01 DC 12/24/16 17:00 5 ML ED Course The patient was seen and evaluated as above. Her old records are reviewed. This is her fifth emergency department visit in the last 30 days. She has been seen multiple times for the same complaint, her last visit was yesterday. Her presentation was reviewed with attending physician, Dr. Mireles, who is familiar with the patient. She is requesting a PICC line, which was discussed with her, and she was made aware that the PICC line could not be placed here through the emergency department. She requested a peripheral IV site in order to receive IV fluids while IV team nurse evaluation. This was placed in her home fluids were infused. She also requested Ativan for anxiety. This is not a medication that she is typically prescribed at home, and I was not comfortable providing this to her in the emergency department. Patient was evaluated by Kenia from the IV team. Please refer to her notation for further information. She was able to deaccess and reaccess the port, redress the area and was able to resume the IV fluid, with no apparent leaking. Attempts were made to set the patient up for [facility] for a dressing change for tomorrow if needed, but they are not staffed tomorrow. Dinora Briones, renewals manager, also met with the patient to provide support and to obtain consent to speak to Dr. Carpenter's office on the next business day to help coordinate her care more appropriately. She was agreeable to this. The patient was discharged home in good condition. She was advised to follow-up with her surgeon and PCP as scheduled, and return to the emergency department as needed. She does not demonstrate any signs of line infection or sepsis. She subjectively reports that she feels dehydrated, however vital signs are stable. Etiologies such as benign positional vertigo, dehydration, hypovolemia, anemia, hypoglycemia, electrolyte abnormalities, as well as others were felt to be unlikely. Medical Decision See ED course. Impression Primary Impression: Vascular port complication Departure Information Referrals Villa Carpenter M.D. (PCP) Patient Instructions My [facility] Additional Instructions Resume normal infusions through your port. Return to the emergency department if needed. Follow-up with Dr. Carpenter's office and Dr. Beltran's office as you have scheduled this week.
[2017-08-02] MEDS ORDERED: PLEC3TAB (09:55)
== END 2016-12-24 17:44 | disposition home or self-care (01) ==
LOC: C.EDB 15:01 → C.EDC 17:44
DX: T82.9XXA Unspecified complication of cardiac and vascular prosthetic device, implant and graft, initial encounter (principal); E86.0 Dehydration; R51 Headache; R53.83 Other fatigue; Z79.4 Long term (current) use of insulin; Z79.899 Other long term (current) drug therapy; Z86.19 Personal history of other infectious and parasitic diseases; Z87.19 Personal history of other diseases of the digestive system; Z87.891 Personal history of nicotine dependence; Z82.49 Family history of ischemic heart disease and other diseases of the circulatory system; Z83.3 Family history of diabetes mellitus; Y84.0 Cardiac catheterization as the cause of abnormal reaction of the patient, or of later complication, without mention of misadventure at the time of the procedure

== ENCOUNTER → 2017-01-11 | Outpatient (CLI) | payer BC ==
[~2017-01-11] MED LIST changes: +PLEC3TAB
[2017-01-11 14:28] LABS: ALT/SGPT 58 U/L (12-78); AST/SGOT 59 U/L (15-37); BLOOD UREA NITROGEN 58 mg/dl (7-18); BUN/CREATININE RATIO 70.5 (10-20); CALCIUM 9.2 mg/dl (8.5-10.1); CARBON DIOXIDE 34 mmol/L (21-32); CHLORIDE 95 mmol/L (98-107); CREATININE 0.82 mg/dl (0.60-1.20); GLUCOSE 120 mg/dl (70-99); MAGNESIUM 2.3 mg/dl (1.8-2.4); POTASSIUM 3.6 mmol/L (3.5-5.1); SODIUM 136 mmol/L (136-145)
[2017-01-11 14:31] LABS: ALB/GLOB RATIO 0.7 (0.9-2); ALKALINE PHOSPHATASE 162 U/L (45-117)
== END | disposition home or self-care (01) ==
LOC: C.LABSPEC 13:26
PROVIDERS: ATTEND Internal Medicine
DX: K56.60 Unspecified intestinal obstruction (principal)

== ENCOUNTER → 2017-01-13 | Outpatient (CLI) | payer BC ==
[2017-01-13 14:57] LABS: ALT/SGPT 53 U/L (12-78); AST/SGOT 68 U/L (15-37); BLOOD UREA NITROGEN 53 mg/dl (7-18); BUN/CREATININE RATIO 79.7 (10-20); CALCIUM 8.8 mg/dl (8.5-10.1); CARBON DIOXIDE 34 mmol/L (21-32); CHLORIDE 97 mmol/L (98-107); CREATININE 0.67 mg/dl (0.60-1.20); GLUCOSE 102 mg/dl (70-99); POTASSIUM 3.8 mmol/L (3.5-5.1); SODIUM 139 mmol/L (136-145)
[2017-01-13 15:08] LABS: ALB/GLOB RATIO 0.7 (0.9-2); ALKALINE PHOSPHATASE 147 U/L (45-117)
== END | disposition home or self-care (01) ==
LOC: C.LABBC 10:25
PROVIDERS: ATTEND Physician Assistant Medical
DX: K86.1 Other chronic pancreatitis (principal); F41.9 Anxiety disorder, unspecified; R63.0 Anorexia; E03.9 Hypothyroidism, unspecified

== ENCOUNTER → 2017-02-07 | Outpatient (CLI) | payer BC ==
[2017-02-07 14:59] LABS: BLOOD UREA NITROGEN 52 mg/dl (7-18); BUN/CREATININE RATIO 71.8 (10-20); CALCIUM 8.9 mg/dl (8.5-10.1); CARBON DIOXIDE 31 mmol/L (21-32); CHLORIDE 99 mmol/L (98-107); CREATININE 0.72 mg/dl (0.60-1.20); GLUCOSE 98 mg/dl (70-99); MAGNESIUM 2.3 mg/dl (1.8-2.4); POTASSIUM 3.8 mmol/L (3.5-5.1); SODIUM 139 mmol/L (136-145)
[2017-02-07 15:00] LABS: PHOSPHORUS 3.2 mg/dl (2.5-4.9)
== END | disposition home or self-care (01) ==
LOC: C.LABSPEC 13:21
PROVIDERS: ATTEND Internal Medicine
DX: K56.60 Unspecified intestinal obstruction (principal)

== ENCOUNTER → 2017-03-07 | Outpatient (CLI) | payer BC ==
[~2017-03-07] MED LIST changes: -PLEC3TAB
[2017-03-07 14:55] LABS: BLOOD UREA NITROGEN 60 mg/dl (7-18); BUN/CREATININE RATIO 66.4 (10-20); CALCIUM 9.4 mg/dl (8.5-10.1); CARBON DIOXIDE 34 mmol/L (21-32); CHLORIDE 91 mmol/L (98-107); GLUCOSE 109 mg/dl (70-99); MAGNESIUM 2.2 mg/dl (1.8-2.4); POTASSIUM 3.5 mmol/L (3.5-5.1); SODIUM 133 mmol/L (136-145)
[2017-03-07 14:58] LABS: ALB/GLOB RATIO 0.7 (0.9-2); ALKALINE PHOSPHATASE 156 U/L (45-117); ALT/SGPT 78 U/L (12-78); AST/SGOT 85 U/L (15-37); PHOSPHORUS 3.2 mg/dl (2.5-4.9)
== END | disposition home or self-care (01) ==
LOC: C.LABSPEC 14:25
PROVIDERS: ATTEND Internal Medicine
DX: K56.60 Unspecified intestinal obstruction (principal)

== ENCOUNTER → 2017-04-27 | Day surgery (SDC) | payer BC ==
[2017-04-24 11:48] VITALS: Ht 162.6 cm; Wt 43.6 kg
[~2017-04-27] VITALS: Ht 162.6 cm; Wt 43.6 kg
--- NOTE | 2017-04-27 10:23 | Endo History and Physical ---
History & Physical Date of Service: Apr 27, 2017. Chief Complaint: PEG tube leaking Referring Physician: Dr. Villa Carpenter and Dr. Carlos Verdugo History of Present Illness PEG tube leaking Past Medical History Gastrointestinal Disorder, Reflux, Liver Disease Past Surgical History Hx Cardiac Surgery: No Hx Internal Defibrillator: No Hx Pacemaker: No Hx Abdominal Surgery: Yes (PEG TUBE PLACEMENT, LINETTE, RUPTURED BOWEL REPAIR) Hx of Implantable Prosthesis: No Hx Post-Op Nausea and Vomiting: No Hx Cancer Surgery: No Hx Thoracic Surgery: No Hx Orthopedic: Yes (SPINAL SURGERY X2) Hx Urinary Tract Surgery: No Family History Colon CA Social History Smoking Status: Former Smoker Hx Substance Use: No Hx Alcohol Use: No Allergies Coded Allergies: Ibuprofen (Verified Allergy, Unknown, RINGING IN EARS,PARTIAL LOSS HEARING , 04/24/17) Ketorolac Tromethamine (Verified Allergy, Unknown, ROARING SOUND IN EARS, 04/24/17) NSAIDs (Verified Allergy, Unknown, RINGING IN EARS, 04/24/17) Zoledronic Acid (Verified Allergy, Unknown, FLU LIKE SYMPTOMS SEVERE HEADACHE, 04/24/17) Promethazine (Verified Adverse Reaction, Mild, RESTLESS LEGS, 04/24/17) Alprazolam (Verified Adverse Reaction, Unknown, LOSS OF HEARING, 04/24/17) ringing in ears Aspirin (Verified Adverse Reaction, Unknown, RINGING IN EARS,PARTIAL HEARING LOSS, 04/24/17) RINGING IN EARS,PARTIAL HEARING LOSS Ketorolac (Verified Adverse Reaction, Unknown, ROARING IN EARS, 04/24/17) ROARING SOUND IN EARS Vancomycin (Verified Adverse Reaction, Unknown, ZACHERY SYNDROME, 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 1 bag with lipids. 6 without. Lidoderm Patch 5% (Lidocaine) 1 Ea Tdsy 1 Patch TD ONAMOFFPM PRN 11/06/16 Reported Humulin R (Insulin Human Regular) 100 Units/Ml Susp 14 Units DAILY 11/06/16 Reported INJECTS INTO TPN BAG DAILY. Dextrose 2.5%/Nacl 0.45% (Dextrose W/ Sodium Chloride) 1 Inj Inj IV 08/08/16 Reported 40 meq potassium 1 BAG RUNS OVER 4HOURS EVERY DAY Ultram (Tramadol HCl) 50 Mg Tab 50 Mg PO Q4H PRN 08/03/15 Reported Biotin 1 Mg Cap 5,000 Mcg PO BID 10/06/14 Reported Famotidine 10 Mg/Ml Inj 20 Mg INJ HS 06/02/14 Reported INJECT INTO TPN BAG ONCE DAILY. Vital Signs Weight (Kilograms): 43.64 Height (Feet): 5 Height (Inches): 4 Date Time Temp Pulse Resp B/P (MAP) Pulse Ox O2 Delivery O2 Flow Rate FiO2 04/27/17 09:53 36.8 77 16 133/75 (94) 99 Room Air Physical Exam General Appearance: no apparent distress Respiratory/Chest: Auscultation: breath sounds normal Cardiovascular: Heart Auscultation: RRR Abdomen: Inspection & Palpation: soft Assessment and Plan PEG tube leaking - replace PEG
[2017-04-27 10:37] VITALS: BP 121/72; PULSE 78; O2SAT 99
--- NOTE | 2017-04-27 10:37 | Discharge Instructions ---
Endoscopy Patient Instructions Date / Procedure(s) Performed Apr 27, 2017. Other Allergy Information Coded Allergies: Ibuprofen (Verified Allergy, Unknown, RINGING IN EARS,PARTIAL LOSS HEARING , 04/24/17) Ketorolac Tromethamine (Verified Allergy, Unknown, ROARING SOUND IN EARS, 04/24/17) NSAIDs (Verified Allergy, Unknown, RINGING IN EARS, 04/24/17) Zoledronic Acid (Verified Allergy, Unknown, FLU LIKE SYMPTOMS SEVERE HEADACHE, 04/24/17) Promethazine (Verified Adverse Reaction, Mild, RESTLESS LEGS, 04/24/17) Alprazolam (Verified Adverse Reaction, Unknown, LOSS OF HEARING, 04/24/17) ringing in ears Aspirin (Verified Adverse Reaction, Unknown, RINGING IN EARS,PARTIAL HEARING LOSS, 04/24/17) RINGING IN EARS,PARTIAL HEARING LOSS Ketorolac (Verified Adverse Reaction, Unknown, ROARING IN EARS, 04/24/17) ROARING SOUND IN EARS Vancomycin (Verified Adverse Reaction, Unknown, ZACHERY SYNDROME, 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 PEG tube replaced with 20 Fr 2.4 cm Provider Instructions Activity Restrictions - No exercising or heavy lifting for 24 hours. - Do not drink alcohol the day of the procedure. - Do not drive a car or operate machinery until the day after the procedure. - Do not make any important decisions or sign important papers in 24 hours after the procedure. Following Day: - Return to full activity which may include returning to work/school. Diet Start your diet with liquids and light foods (jello, soup, juice, toast). Then eat your usual diet if not nauseated. Treatment For Common After Affects For mild abdominal pain, bloating, or excessive gas: - Rest - Eat lightly - Lie on right side Follow-Up Information Follow-up with Dr. Villa Carpenter and Dr. Carlos Verdugo as scheduled Anesthesia Information What You Should Know You have had a procedure that required some medicine to reduce anxiety and discomfort. This treatment is called moderate sedation. After receiving the treatment, you may be sleepy, but you will be able to breathe on your own. The effects of the treatment may last for several hours. Follow these instructions along with Activity/Diet recommendations noted above: * Do NOT do anything where dizziness or clumsiness would be dangerous. * Rest quietly at home today, then you can be up and about tomorrow. * Have a responsible person stay with you the rest of today. * You may have had an I.V. today. If so, you may take the dressing off later today. Recommendations Call your doctor if: * Trouble breathing * Continuous vomiting for more than 24 hours * Temperature above 101 degrees * Severe abdominal pain or bloating * Pain not relieved by pain medicine ordered * There is increased drainage or redness from any incision * A large amount of rectal bleeding greater than 2-3 tablespoons. (If you had a polyp/s removed or have hemorrhoids, a small amount of blood - from the rectum is to be expected.) * You have any unanswered questions or concerns. IN THE EVENT OF A SERIOUS EMERGENCY, GO TO THE NEAREST EMERGENCY ROOM Your discharge instructions were prepared by provider Fred Bill. Patient Instructions Signature Page Caroline Lopez Patient (or Guardian) Signature/Date: I have read and understand the instructions given to me by my caregivers. Caregiver/RN/Doctor Signature/Date: The above-named patient and/or guardian has received patient instructions on this date. + Original Patient Signature Page (only) stays with chart. Please make copy for patient.
--- NOTE | 2017-04-27 10:40 | GI REPORT ---
Procedure Date: 04/27/2017 10:37 AM Procedure: Non-endoscopic Tube Procedure Indications: Routine exchange PEG tube Medicines: See the Anesthesia note for documentation of the administered medications Complications: No immediate complications. Estimated Blood Loss: Estimated blood loss: none. Procedure: Pre-Anesthesia Assessment: - ASA Grade Assessment: III - A patient with severe systemic disease. After obtaining informed consent, the site was prepped and the procedure was performed. The procedure was accomplished without difficulty. The patient tolerated the procedure well. Findings: Upon external examination, normal-appearing skin was found surrounding the stomal opening. The existing gastrostomy site was examined and cleaned. A 20 Fr Gurpreet-Cook 2.4 cm gastrostomy tube was lubricated and placed into the existing gastrostomy port using a stylet. Location confirmed by air insufflation and water flush. Impression: - The previously removed gastrostomy tube was replaced with a 20 Fr Gurpreet-Cook gastrostomy tube. - No specimens collected. Recommendation: - Discharge patient to home. Fred Cox M.D. Fred Cox MD 04/27/2017 10:39:30 AM This report has been signed electronically. Note Initiated On: 04/27/2017 10:37 AM I attest to the content of the Intraoperative Record and orders documented therein, exceptions below
== END | disposition home or self-care (01) ==
LOC: C.GI 09:32
PROVIDERS: ATTEND Internal Medicine Gastroenterology
DX: Z43.1 Encounter for attention to gastrostomy (principal); K21.9 Gastro-esophageal reflux disease without esophagitis; K76.9 Liver disease, unspecified; Z80.0 Family history of malignant neoplasm of digestive organs; Z87.891 Personal history of nicotine dependence; Z79.4 Long term (current) use of insulin; Z79.899 Other long term (current) drug therapy

== ENCOUNTER → 2017-05-23 | Outpatient (CLI) | payer BC ==
[2017-05-23 19:37] LABS: HEMATOCRIT 27.4 % (37-47); MEAN CELL VOLUME 65.7 fL (80-100); MEAN CORPUSCULAR HEMOGLOBIN 20.1 pg (25-34); MEAN CORPUSCULAR HGB CONC 30.7 g/dl (32-36); PLATELET COUNT 165 K/uL (130-400); RED BLOOD COUNT 4.17 M/uL (4.2-5.4); WHITE BLOOD COUNT 3.27 K/uL (4.8-10.8)
[2017-05-23 19:51] LABS: ALT/SGPT 57 U/L (12-78); AST/SGOT 69 U/L (15-37); BLOOD UREA NITROGEN 56 mg/dl (7-18); CALCIUM 9.1 mg/dl (8.5-10.1); CARBON DIOXIDE 34 mmol/L (21-32); CHLORIDE 94 mmol/L (98-107); CREATININE 0.81 mg/dl (0.60-1.20); GLUCOSE 107 mg/dl (70-99); MAGNESIUM 2.1 mg/dl (1.8-2.4); PHOSPHORUS 3.9 mg/dl (2.5-4.9); POTASSIUM 3.5 mmol/L (3.5-5.1); SODIUM 135 mmol/L (136-145)
[2017-05-23 19:54] LABS: ALB/GLOB RATIO 0.8 (0.9-2); ALKALINE PHOSPHATASE 163 U/L (45-117); FERRITIN 6.4 ng/ml (8.0-388.0); TOTAL IRON BINDING CAPACITY 567 mcg/dl (250-450)
[2017-05-26 02:30] LABS: IONIZED CALCIUM** TC 19950E 5.1 MG/DL (4.8-5.6)
[2017-05-30 18:52] LABS: REFERENCE QUEST TEST REPORT
--- NOTE | 2017-06-01 12:28 | CODING QUERY NO DIAGNOSIS ---
TREATMENT RENDERED WITHOUT A DIAGNOSIS 64 To promote full compliance with coding requirements relating to patient care, physician participation is requested in all cases of surgical coder uncertainty. Please assist us with providing a diagnosis/symptom for the test(s) below: A diagnosis/symptom was not documented on your Order. A valid diagnosis/symptom is required to bill all insurances. Please remember that we are unable to code a diagnosis of rule out, probable, possible, questionable, or suspected. DOS 05/23/17 Tests that require a diagnosis: * COMP METABOLIC DIAGNOSIS: * FERRITIN DIAGNOSIS: * IRON DIAGNOSIS: * MAGNESIUM DIAGNOSIS: * PHOSPHORUS DIAGNOSIS: * TOTAL IRON BINDING DIAGNOSIS: * TRANSFERRIN DIAGNOSIS: * CHROMIUM DIAGNOSIS: * COPPER, PLASMA DIAGNOSIS: * VITAMIN B12 DIAGNOSIS: * VITAMIN D, 25-HYDROXY DIAGNOSIS: * CBC W/O DIFF DIAGNOSIS: Provider Signature: Date: Thank you Rachelle Peter [facility] Information Management Once completed, please kindly fax back to [phone] For questions please call [phone]
== END | disposition home or self-care (01) ==
LOC: C.LABSPEC 16:00
PROVIDERS: ATTEND Internal Medicine
DX: Z78.9 Other specified health status (principal); E46 Unspecified protein-calorie malnutrition

== ENCOUNTER → 2017-05-25 | Outpatient (CLI) | payer BC | END | disposition home or self-care (01) | LOC: C.LABSPEC 12:50 | PROVIDERS: ATTEND Internal Medicine | DX: K21.9 Gastro-esophageal reflux disease without esophagitis (principal); Z93.1 Gastrostomy status ==

== ENCOUNTER → 2017-06-20 | Outpatient (CLI) | payer BC ==
[2017-06-20 16:14] LABS: BLOOD UREA NITROGEN 49 mg/dl (7-18); BUN/CREATININE RATIO 68.5 (10-20); CALCIUM 8.6 mg/dl (8.5-10.1); CARBON DIOXIDE 31 mmol/L (21-32); CHLORIDE 96 mmol/L (98-107); CREATININE 0.72 mg/dl (0.60-1.20); GLUCOSE 91 mg/dl (70-99); MAGNESIUM 2.1 mg/dl (1.8-2.4); PHOSPHORUS 3.1 mg/dl (2.5-4.9); POTASSIUM 3.4 mmol/L (3.5-5.1); SODIUM 135 mmol/L (136-145)
--- NOTE | 2017-06-21 12:20 | CODING QUERY NO DIAGNOSIS ---
TREATMENT RENDERED WITHOUT A DIAGNOSIS 64 To promote full compliance with coding requirements relating to patient care, physician participation is requested in all cases of dovetailer uncertainty. Please assist us with providing a diagnosis/symptom for the test(s) below: A diagnosis/symptom was not documented on your Order. A valid diagnosis/symptom is required to bill all insurances. Please remember that we are unable to code a diagnosis of rule out, probable, possible, questionable, or suspected. DOS 06/20/17 Tests that require a diagnosis: * MAGNESIUM DIAGNOSIS: * PHOSPHORUS DIAGNOSIS: * PARTIAL RENAL PROFILE DIAGNOSIS: * CALCIUM, IONIZED DIAGNOSIS: Provider Signature: Date: Thank you Rachelle [employer] Information Management Once completed, please kindly fax back to [phone] For questions please call [phone]
== END | disposition home or self-care (01) ==
LOC: C.LABSPEC 14:37
PROVIDERS: ATTEND Internal Medicine
DX: E46 Unspecified protein-calorie malnutrition (principal)

== ENCOUNTER → 2017-07-03 | Outpatient (CLI) | payer BC ==
[2017-07-03 14:31] LABS: BLOOD UREA NITROGEN 56 mg/dl (7-18); BUN/CREATININE RATIO 68.7 (10-20); CALCIUM 9.1 mg/dl (8.5-10.1); CARBON DIOXIDE 35 mmol/L (21-32); CHLORIDE 91 mmol/L (98-107); CREATININE 0.81 mg/dl (0.60-1.20); GLUCOSE 101 mg/dl (70-99); MAGNESIUM 2.1 mg/dl (1.8-2.4); PHOSPHORUS 3.3 mg/dl (2.5-4.9); POTASSIUM 3.2 mmol/L (3.5-5.1); SODIUM 135 mmol/L (136-145)
== END | disposition home or self-care (01) ==
LOC: C.LABSPEC 13:59
PROVIDERS: ATTEND Internal Medicine
DX: K56.609 Unspecified intestinal obstruction, unspecified as to partial versus complete obstruction (principal)

== ENCOUNTER → 2017-07-18 | Outpatient (CLI) | payer BC ==
[~2017-07-18] MED LIST changes: +PLEC3TAB
[2017-07-18 13:54] LABS: BLOOD UREA NITROGEN 58 mg/dl (7-18); BUN/CREATININE RATIO 72.2 (10-20); CALCIUM 9.1 mg/dl (8.5-10.1); CARBON DIOXIDE 33 mmol/L (21-32); CHLORIDE 95 mmol/L (98-107); GLUCOSE 107 mg/dl (70-99); MAGNESIUM 2.2 mg/dl (1.8-2.4); PHOSPHORUS 3.5 mg/dl (2.5-4.9); POTASSIUM 3.5 mmol/L (3.5-5.1); SODIUM 136 mmol/L (136-145)
== END | disposition home or self-care (01) ==
LOC: C.LABSPEC 11:39
PROVIDERS: ATTEND Internal Medicine
DX: Z01.89 Encounter for other specified special examinations (principal)

== ENCOUNTER → 2017-08-02 | Day surgery (SDC) | payer BC ==
[~2017-08-02] VITALS: Ht 162.6 cm; Wt 42.7 kg
[2017-08-02 09:40] VITALS: Ht 162.6 cm; Wt 42.7 kg
--- NOTE | 2017-08-02 10:01 | Endo History and Physical ---
History & Physical Date of Service: Aug 02, 2017. Chief Complaint: PEG change Referring Physician: Dr. Cox History of Present Illness Patient for PEG change Past Medical History Gastrointestinal Disorder, Reflux, Liver Disease Past Surgical History Hx Cardiac Surgery: No Hx Internal Defibrillator: No Hx Pacemaker: No Hx Abdominal Surgery: Yes (PEG TUBE PLACEMENT, LINETTE, RUPTURED BOWEL REPAIR) Hx Post-Op Nausea and Vomiting: No Hx Cancer Surgery: No Hx Thoracic Surgery: No Hx Orthopedic: Yes (SPINAL SURGERY X2) Hx Urinary Tract Surgery: No Social History Smoking Status: Former Smoker Hx Substance Use: No Hx Alcohol Use: No Allergies Coded Allergies: Ibuprofen (Verified Allergy, Unknown, RINGING IN EARS,PARTIAL LOSS HEARING , 08/02/17) Ketorolac Tromethamine (Verified Allergy, Unknown, ROARING SOUND IN EARS, 08/02/17) NSAIDs (Verified Allergy, Unknown, RINGING IN EARS, 08/02/17) Zoledronic Acid (Verified Allergy, Unknown, FLU LIKE SYMPTOMS SEVERE HEADACHE, 08/02/17) Promethazine (Verified Adverse Reaction, Mild, RESTLESS LEGS, 08/02/17) Alprazolam (Verified Adverse Reaction, Unknown, LOSS OF HEARING, 08/02/17) ringing in ears Aspirin (Verified Adverse Reaction, Unknown, RINGING IN EARS,PARTIAL HEARING LOSS, 08/02/17) RINGING IN EARS,PARTIAL HEARING LOSS Ketorolac (Verified Adverse Reaction, Unknown, ROARING IN EARS, 08/02/17) ROARING SOUND IN EARS Vancomycin (Verified Adverse Reaction, Unknown, ZACHERY SYNDROME, 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 1 bag with lipids. 6 without. Lidoderm Patch 5% (Lidocaine) 1 Ea Tdsy 1 Patch TD ONAMOFFPM PRN 11/06/16 Reported Humulin R (Insulin Human Regular) 100 Units/Ml Susp 14 Units DAILY 11/06/16 Reported INJECTS INTO TPN BAG DAILY. Dextrose 2.5%/Nacl 0.45% (Dextrose W/ Sodium Chloride) 1 Inj Inj IV 08/08/16 Reported 40 meq potassium 1 BAG RUNS OVER 4HOURS EVERY DAY Ultram (Tramadol HCl) 50 Mg Tab 50 Mg PO Q4H PRN 08/03/15 Reported Biotin 1 Mg Cap 5,000 Mcg PO BID 10/06/14 Reported Famotidine 10 Mg/Ml Inj 20 Mg INJ HS 06/02/14 Reported INJECT INTO TPN BAG ONCE DAILY. Physical Exam General Appearance: no apparent distress Respiratory/Chest: Auscultation: breath sounds normal Cardiovascular: Heart Auscultation: RRR Abdomen: Inspection & Palpation: soft Liver: non-tender Assessment and Plan stable for PEG change
--- NOTE | 2017-08-02 10:09 | Discharge Instructions ---
Endoscopy Patient Instructions Date / Procedure(s) Performed Aug 02, 2017. Other (PEG change) Allergy Information Coded Allergies: Ibuprofen (Verified Allergy, Unknown, RINGING IN EARS,PARTIAL LOSS HEARING , 08/02/17) Ketorolac Tromethamine (Verified Allergy, Unknown, ROARING SOUND IN EARS, 08/02/17) NSAIDs (Verified Allergy, Unknown, RINGING IN EARS, 08/02/17) Zoledronic Acid (Verified Allergy, Unknown, FLU LIKE SYMPTOMS SEVERE HEADACHE, 08/02/17) Promethazine (Verified Adverse Reaction, Mild, RESTLESS LEGS, 08/02/17) Alprazolam (Verified Adverse Reaction, Unknown, LOSS OF HEARING, 08/02/17) ringing in ears Aspirin (Verified Adverse Reaction, Unknown, RINGING IN EARS,PARTIAL HEARING LOSS, 08/02/17) RINGING IN EARS,PARTIAL HEARING LOSS Ketorolac (Verified Adverse Reaction, Unknown, ROARING IN EARS, 08/02/17) ROARING SOUND IN EARS Vancomycin (Verified Adverse Reaction, Unknown, ZACHERY SYNDROME, 08/02/17) Discharge Date / Findings Aug 02, 2017. PEG change with 20F/ 2.4 cm low profile button Provider Instructions Activity Restrictions - No exercising or heavy lifting for 24 hours. - Do not drink alcohol the day of the procedure. - Do not drive a car or operate machinery until the day after the procedure. - Do not make any important decisions or sign important papers in 24 hours after the procedure. Following Day: - Return to full activity which may include returning to work/school. Diet Start your diet with liquids and light foods (jello, soup, juice, toast). Then eat your usual diet if not nauseated. Treatment For Common After Affects For mild abdominal pain, bloating, or excessive gas: - Rest - Eat lightly - Lie on right side Follow-Up Information Follow-up with as scheduled Anesthesia Information What You Should Know You have had a procedure that required some medicine to reduce anxiety and discomfort. This treatment is called moderate sedation. After receiving the treatment, you may be sleepy, but you will be able to breathe on your own. The effects of the treatment may last for several hours. Follow these instructions along with Activity/Diet recommendations noted above: * Do NOT do anything where dizziness or clumsiness would be dangerous. * Rest quietly at home today, then you can be up and about tomorrow. * Have a responsible person stay with you the rest of today. * You may have had an I.V. today. If so, you may take the dressing off later today. Recommendations Call your doctor if: * Trouble breathing * Continuous vomiting for more than 24 hours * Temperature above 101 degrees * Severe abdominal pain or bloating * Pain not relieved by pain medicine ordered * There is increased drainage or redness from any incision * A large amount of rectal bleeding greater than 2-3 tablespoons. (If you had a polyp/s removed or have hemorrhoids, a small amount of blood - from the rectum is to be expected.) * You have any unanswered questions or concerns. IN THE EVENT OF A SERIOUS EMERGENCY, GO TO THE NEAREST EMERGENCY ROOM Your discharge instructions were prepared by provider Dagoberto Heaton. Patient Instructions Signature Page Caroline Lopez Patient (or Guardian) Signature/Date: I have read and understand the instructions given to me by my caregivers. Caregiver/RN/Doctor Signature/Date: The above-named patient and/or guardian has received patient instructions on this date. + Original Patient Signature Page (only) stays with chart. Please make copy for patient.
[2017-08-02 10:10] VITALS: BP 125/75; PULSE 83; O2SAT 99
--- NOTE | 2017-08-02 10:33 | GI REPORT ---
Procedure Date: 08/02/2017 10:11 AM Procedure: Non-endoscopic Tube Procedure Indications: Exchange PEG tube due to malfunctioning gastrostomy tube Medicines: None Complications: No immediate complications. Estimated Blood Loss: Estimated blood loss was minimal. Procedure: Pre-Anesthesia Assessment: - Prior to the procedure, a History and Physical was performed, and patient medications, allergies and sensitivities were reviewed. The patient's tolerance of previous anesthesia was reviewed. - The risks and benefits of the procedure and the sedation options and risks were discussed with the patient. All questions were answered and informed consent was obtained. - Patient identification and proposed procedure were verified prior to the procedure by the physician and the nurse. The procedure was verified in the pre-procedure area. - Pre-procedure physical examination revealed no contraindications to sedation. - After reviewing the risks and benefits, the patient was deemed in satisfactory condition to undergo the procedure. After obtaining informed consent, the site was prepped and the procedure was performed. The procedure was accomplished without difficulty. The patient tolerated the procedure well. Findings: Upon external examination, skin erythema was found surrounding the stomal opening. The gastrostomy tube was leaking. The gastrostomy tube was leaking and required removal. The existing PEG site was cleaned. The existing PEG balloon was deflated and by using traction, removal was easily accomplished. A 20 Fr/ 2.4 cm Gurpreet-Cook low profile button was lubricated and placed into the existing gastrostomy port. Saline was used to distend the balloon that was previously tested. When positioned, the skin marking was noted to be 2.5 cm at the external bumper. The final tension and compression of the abdominal wall by the gastrostomy tube and external bumper were checked and revealed that the bumper was loose and lightly touching the skin. Placement into the stomach was confirmed by easily flushing the tube. The tube was capped, and the tube site was cleaned and dressed. Impression: - The gastrostomy tube was leaking and was removed and replaced with a 20 Fr/2.4 cm Gurpreet-Cook low profile button. - No specimens collected. Recommendation: - Discharge patient to home. Dagoberto Heaton M.D. Dagoberto Heaton MD 08/02/2017 10:17:51 AM This report has been signed electronically. Note Initiated On: 08/02/2017 10:11 AM I attest to the content of the Intraoperative Record and orders documented therein, exceptions below
== END | disposition home or self-care (01) ==
LOC: C.GI 09:11
PROVIDERS: ATTEND Internal Medicine Gastroenterology
DX: K94.23 Gastrostomy malfunction (principal); Z90.49 Acquired absence of other specified parts of digestive tract; Z98.890 Other specified postprocedural states; Z87.891 Personal history of nicotine dependence; Z79.899 Other long term (current) drug therapy

== ENCOUNTER → 2017-09-26 | Outpatient (CLI) | payer BC ==
[2017-09-26 15:36] LABS: ALBUMIN 3.2 gm/dl (3.4-5.0); ALT/SGPT 86 U/L (12-78); AST/SGOT 95 U/L (15-37); BLOOD UREA NITROGEN 50 mg/dl (7-18); CALCIUM 9.1 mg/dl (8.5-10.1); CARBON DIOXIDE 31 mmol/L (21-32); CREATININE 0.79 mg/dl (0.60-1.20); GLUCOSE 95 mg/dl (70-99); POTASSIUM 3.7 mmol/L (3.5-5.1); SODIUM 135 mmol/L (136-145)
[2017-09-26 15:39] LABS: ALKALINE PHOSPHATASE 185 U/L (45-117); PHOSPHORUS 2.8 mg/dl (2.5-4.9)
== END | disposition home or self-care (01) ==
LOC: C.LABSPEC 14:58
PROVIDERS: ATTEND Internal Medicine
DX: K56.609 Unspecified intestinal obstruction, unspecified as to partial versus complete obstruction (principal); Z45.2 Encounter for adjustment and management of vascular access device; K85.90 Acute pancreatitis without necrosis or infection, unspecified; Z93.1 Gastrostomy status

== ENCOUNTER → 2017-10-17 | Outpatient (CLI) | payer BC ==
[2017-10-17 12:21] LABS: MEAN CORPUSCULAR HGB CONC 29.1 g/dl (32-36)
[2017-10-17 12:39] LABS: HEMATOCRIT 27.8 % (37-47); HEMOGLOBIN 8.1 g/dL (12.0-16.0); MEAN CELL VOLUME 65.9 fL (80-100); MEAN CORPUSCULAR HEMOGLOBIN 19.2 pg (25-34); RED CELL DISTRIBUTION WIDTH CV 19.6 % (11.5-14.5); WHITE BLOOD COUNT 3.81 K/uL (4.8-10.8)
[2017-10-17 13:05] LABS: PLATELET COUNT 137 K/uL (130-400)
--- NOTE | 2017-10-27 10:48 | CODING QUERY NO DIAGNOSIS ---
TREATMENT RENDERED WITHOUT A DIAGNOSIS : 63 To promote full compliance with coding requirements relating to patient care, physician participation is requested in all cases of check examiner uncertainty. Please assist us with providing a diagnosis/symptom for the test(s) below: A diagnosis/symptom was not documented on your Order. A valid diagnosis/symptom is required to bill all insurances. Please remember that we are unable to code a diagnosis of rule out, probable, possible, questionable, or suspected. Tests that require a diagnosis: DOS: 10/17/17 * VITAMIN B12 DIAGNOSIS: * VITAMIN D, 25-HYDROXY DIAGNOSIS: * CHROMIUM DIAGNOSIS: * COPPER, PLASMA DIAGNOSIS: * ZINC DIAGNOSIS: * CBC W/O DIFF DIAGNOSIS: * FERRITIN DIAGNOSIS: * IRON (FE) DIAGNOSIS: Provider Signature: Date: Thank you Michelle [facility] Information Management Once completed, please kindly fax back to [phone] For questions please call [phone]
== END | disposition home or self-care (01) ==
LOC: C.LABSPEC 12:05
PROVIDERS: ATTEND Internal Medicine
DX: E46 Unspecified protein-calorie malnutrition (principal)

== ENCOUNTER → 2017-10-18 | Day surgery (SDC) | payer BC ==
[~2017-10-18] VITALS: Ht 162.6 cm; Wt 42.7 kg
[2017-10-18 11:16] VITALS: Ht 162.6 cm; Wt 42.7 kg
--- NOTE | 2017-10-18 12:03 | Endo History and Physical ---
History & Physical Date of Service: Oct 18, 2017. Chief Complaint: DYSPHAGIA/ PEG TUBE LEAKING Referring Physician: DR. ZUNIGA History of Present Illness PEG tube exchange Past Medical History Gastrointestinal Disorder, Reflux, Liver Disease Past Surgical History Hx Cardiac Surgery: No Hx Internal Defibrillator: No Hx Pacemaker: No Hx Abdominal Surgery: Yes (PEG TUBE PLACEMENT, LINETTE, RUPTURED BOWEL REPAIR) Hx Post-Op Nausea and Vomiting: No Hx Cancer Surgery: No Hx Thoracic Surgery: No Hx Orthopedic: Yes (SPINAL SURGERY X2) Hx Urinary Tract Surgery: No Family History Colon CA Social History Smoking Status: Former Smoker Hx Substance Use: No Hx Alcohol Use: No Allergies Coded Allergies: Ibuprofen (Verified Allergy, Unknown, RINGING IN EARS,PARTIAL LOSS HEARING , 08/02/17) Ketorolac Tromethamine (Verified Allergy, Unknown, ROARING SOUND IN EARS, 08/02/17) NSAIDs (Verified Allergy, Unknown, RINGING IN EARS, 08/02/17) Zoledronic Acid (Verified Allergy, Unknown, FLU LIKE SYMPTOMS SEVERE HEADACHE, 08/02/17) Promethazine (Verified Adverse Reaction, Mild, RESTLESS LEGS, 08/02/17) Alprazolam (Verified Adverse Reaction, Unknown, LOSS OF HEARING, 08/02/17) ringing in ears Aspirin (Verified Adverse Reaction, Unknown, RINGING IN EARS,PARTIAL HEARING LOSS, 08/02/17) RINGING IN EARS,PARTIAL HEARING LOSS Ketorolac (Verified Adverse Reaction, Unknown, ROARING IN EARS, 08/02/17) ROARING SOUND IN EARS Vancomycin (Verified Adverse Reaction, Unknown, ZACHERY SYNDROME, 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 1 bag with lipids. 6 without. Lidoderm Patch 5% (Lidocaine) 1 Ea Tdsy 1 Patch TD ONAMOFFPM PRN 11/06/16 Reported Humulin R (Insulin Human Regular) 100 Units/Ml Susp 14 Units DAILY 11/06/16 Reported INJECTS INTO TPN BAG DAILY. Dextrose 2.5%/Nacl 0.45% (Dextrose W/ Sodium Chloride) 1 Inj Inj IV 08/08/16 Reported 40 meq potassium 1 BAG RUNS OVER 4HOURS EVERY DAY Ultram (Tramadol HCl) 50 Mg Tab 50 Mg PO Q4H PRN 08/03/15 Reported Biotin 1 Mg Cap 5,000 Mcg PO BID 10/06/14 Reported Famotidine 10 Mg/Ml Inj 20 Mg INJ HS 06/02/14 Reported INJECT INTO TPN BAG ONCE DAILY. Vital Signs Weight (Kilograms): 42.73 Height (Feet): 5 Height (Inches): 4 Date Time Temp Pulse Resp B/P (MAP) Pulse Ox O2 Delivery O2 Flow Rate FiO2 10/18/17 11:07 36.8 87 118/73 (88) 98 Room Air Physical Exam General Appearance: no apparent distress Respiratory/Chest: Auscultation: breath sounds normal Cardiovascular: Heart Auscultation: RRR Abdomen: Inspection & Palpation: soft, non-distended Button PEG tube in place with surrounding erythema. Assessment and Plan PEG exchange to Dada tube.
--- NOTE | 2017-10-18 12:04 | Discharge Instructions ---
Endoscopy Patient Instructions Date / Procedure(s) Performed Oct 18, 2017. Other Allergy Information Coded Allergies: Ibuprofen (Verified Allergy, Unknown, RINGING IN EARS,PARTIAL LOSS HEARING , 08/02/17) Ketorolac Tromethamine (Verified Allergy, Unknown, ROARING SOUND IN EARS, 08/02/17) NSAIDs (Verified Allergy, Unknown, RINGING IN EARS, 08/02/17) Zoledronic Acid (Verified Allergy, Unknown, FLU LIKE SYMPTOMS SEVERE HEADACHE, 08/02/17) Promethazine (Verified Adverse Reaction, Mild, RESTLESS LEGS, 08/02/17) Alprazolam (Verified Adverse Reaction, Unknown, LOSS OF HEARING, 08/02/17) ringing in ears Aspirin (Verified Adverse Reaction, Unknown, RINGING IN EARS,PARTIAL HEARING LOSS, 08/02/17) RINGING IN EARS,PARTIAL HEARING LOSS Ketorolac (Verified Adverse Reaction, Unknown, ROARING IN EARS, 08/02/17) ROARING SOUND IN EARS Vancomycin (Verified Adverse Reaction, Unknown, ZACHERY SYNDROME, 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 PEG tube was exchanged at bedside and position confirmed with aspiration of gastric content. Provider Instructions Activity Restrictions - No exercising or heavy lifting for 24 hours. - Do not drink alcohol the day of the procedure. - Do not drive a car or operate machinery until the day after the procedure. - Do not make any important decisions or sign important papers in 24 hours after the procedure. Following Day: - Return to full activity which may include returning to work/school. Diet Start your diet with liquids and light foods (jello, soup, juice, toast). Then eat your usual diet if not nauseated. Treatment For Common After Affects For mild abdominal pain, bloating, or excessive gas: - Rest - Eat lightly - Lie on right side Follow-Up Information Follow-up with DR. ZUNIGA as scheduled Anesthesia Information What You Should Know You have had a procedure that required some medicine to reduce anxiety and discomfort. This treatment is called moderate sedation. After receiving the treatment, you may be sleepy, but you will be able to breathe on your own. The effects of the treatment may last for several hours. Follow these instructions along with Activity/Diet recommendations noted above: * Do NOT do anything where dizziness or clumsiness would be dangerous. * Rest quietly at home today, then you can be up and about tomorrow. * Have a responsible person stay with you the rest of today. * You may have had an I.V. today. If so, you may take the dressing off later today. Recommendations Call your doctor if: * Trouble breathing * Continuous vomiting for more than 24 hours * Temperature above 101 degrees * Severe abdominal pain or bloating * Pain not relieved by pain medicine ordered * There is increased drainage or redness from any incision * A large amount of rectal bleeding greater than 2-3 tablespoons. (If you had a polyp/s removed or have hemorrhoids, a small amount of blood - from the rectum is to be expected.) * You have any unanswered questions or concerns. IN THE EVENT OF A SERIOUS EMERGENCY, GO TO THE NEAREST EMERGENCY ROOM Your discharge instructions were prepared by provider Kisha Saunders. Patient Instructions Signature Page Caroline Lopez Patient (or Guardian) Signature/Date: I have read and understand the instructions given to me by my caregivers. Caregiver/RN/Doctor Signature/Date: The above-named patient and/or guardian has received patient instructions on this date. + Original Patient Signature Page (only) stays with chart. Please make copy for patient.
[2017-10-18 12:06] VITALS: BP 140/80; PULSE 85; O2SAT 100
--- NOTE | 2017-10-18 12:17 | GI REPORT ---
Procedure Date: 10/18/2017 12:04 PM Procedure: Non-endoscopic Tube Procedure Indications: Exchange PEG tube due to malfunctioning gastrostomy tube Medicines: None Complications: No immediate complications. Estimated Blood Loss: Estimated blood loss: none. Procedure: Pre-Anesthesia Assessment: - Prior to the procedure, a History and Physical was performed, and patient medications and allergies were reviewed. The patient is competent. The risks and benefits of the procedure were discussed with the patient. All questions were answered and informed consent was obtained. Patient identification and proposed procedure were verified by the physician and the nurse in the procedure room. Mental Status Examination: alert and oriented. Airway Examination: normal oropharyngeal airway and neck mobility. Respiratory Examination: clear to auscultation. CV Examination: normal. After reviewing the risks and benefits, the patient was deemed in satisfactory condition to undergo the procedure. The anesthesia plan was to use no sedation or anesthesia. After obtaining informed consent, the site was prepped and the procedure was performed. The procedure was accomplished without difficulty. The patient tolerated the procedure well. Findings: Upon external examination, skin erythema was found surrounding the stomal opening. The current gastrostomy tube is a button Gurpreet Cook tube was patent. The gastrostomy tube was removed using the stylet to straighten the tip of the tube, removal was easily accomplished. A 20 Fr LITO-SINGH low-profile gastrostomy tube was lubricated and placed into the existing gastrostomy port. A total of 6 mL sterile water was used to distend the balloon that was previously tested. When positioned, the skin marking was noted to be 2.5 cm at the external bumper. The final tension and compression of the abdominal wall by the gastrostomy tube and external bumper were checked and revealed that the bumper was in good position, not tight and not deforming the skin. Placement into the stomach was confirmed with flushing, aspiration and auscultation. The tube was capped, and the tube site was cleaned and dressed. Patient was educated on how to use the tube. Impression: - The current gastrostomy tube was removed and replaced with a 20 Fr LITO-SINGH low-profile gastrostomy tube. Recommendation: - Discharge patient to home. Kisha Saunders MD 10/18/2017 12:16:24 PM This report has been signed electronically. Note Initiated On: 10/18/2017 12:04 PM I attest to the content of the Intraoperative Record and orders documented therein, exceptions below
== END | disposition home or self-care (01) ==
LOC: C.GI 10:20
PROVIDERS: ATTEND Student in an Organized Health Care Education/Training Program
DX: R13.10 Dysphagia, unspecified (principal); K94.23 Gastrostomy malfunction; K21.9 Gastro-esophageal reflux disease without esophagitis; Z90.49 Acquired absence of other specified parts of digestive tract; Z80.0 Family history of malignant neoplasm of digestive organs; Z87.891 Personal history of nicotine dependence; Z88.6 Allergy status to analgesic agent; Z88.0 Allergy status to penicillin

== ENCOUNTER → 2017-10-24 | Outpatient (CLI) | payer BC ==
[2017-10-24 17:17] LABS: BLOOD UREA NITROGEN 51 mg/dl (7-18); CALCIUM 9.4 mg/dl (8.5-10.1); CARBON DIOXIDE 34 mmol/L (21-32); GLUCOSE 101 mg/dl (70-99); PHOSPHORUS 3.3 mg/dl (2.5-4.9); POTASSIUM 3.2 mmol/L (3.5-5.1); SODIUM 133 mmol/L (136-145)
== END | disposition home or self-care (01) ==
LOC: C.LABSPEC 16:25
PROVIDERS: ATTEND Internal Medicine
DX: K56.609 Unspecified intestinal obstruction, unspecified as to partial versus complete obstruction (principal)

== ENCOUNTER → 2017-11-14 | Day surgery (SDC) | payer BC ==
[2017-11-13 10:10] VITALS: BMI 16.0
[~2017-11-14] VITALS: Ht 162.6 cm; Wt 44.5 kg
[~2017-11-14] MED LIST changes: +FAMO20IN2 IV; -NF656 TD; -PLEC3TAB; +[UNRECOGNIZED DRUG - CODE] IV; -[UNRECOGNIZED DRUG - CODE] IV; -[UNRECOGNIZED DRUG - OTHER] INJ
[2017-11-14 10:32] VITALS: Ht 162.6 cm; Wt 44.5 kg
[2017-11-14 11:20] VITALS: BP 137/67; PULSE 84; O2SAT 97
--- NOTE | 2017-11-14 11:33 | GI REPORT ---
Procedure Date: 11/14/2017 11:30 AM Procedure: Non-endoscopic Tube Procedure Indications: Replace PEG tube due to malfunctioning gastrostomy tube Medicines: None Complications: No immediate complications. Estimated Blood Loss: Estimated blood loss: none. Procedure: Pre-Anesthesia Assessment: - ASA Grade Assessment: III - A patient with severe systemic disease. After obtaining informed consent, the site was prepped and the procedure was performed. The procedure was accomplished without difficulty. The patient tolerated the procedure well. Findings: The prior LITO-Gan button was in place. The balloon was deflated, and the tube was removed. A 20 Fr Y port gastrostomy tube was placed with ease into the ostomy, and the balloon was inflated with 5 cc of distilled water. Bile was aspirated from the tube, and the tube insufflated well. Recommendation: Discharge pt home. Fred Cox M.D. Fred Cox MD 11/14/2017 11:33:23 AM This report has been signed electronically. Note Initiated On: 11/14/2017 11:30 AM I attest to the content of the Intraoperative Record and orders documented therein, exceptions below
--- NOTE | 2017-11-14 11:34 | Endo History and Physical ---
History & Physical Date of Service: Nov 14, 2017. Chief Complaint: PEG TUBE CHANGE, PROTEIN CALORIE, MALNUTRITION Referring Physician: DR GABBY HAGER History of Present Illness PEG tube change Past Medical History Gastrointestinal Disorder, Reflux, Liver Disease Past Surgical History Hx Cardiac Surgery: No Hx Internal Defibrillator: No Hx Pacemaker: No Hx Abdominal Surgery: Yes (PEG TUBE PLACEMENT, LINETTE, RUPTURED BOWEL REPAIR) Hx of Implantable Prosthesis: Yes (BRUNER R CHEST) Hx Post-Op Nausea and Vomiting: No Hx Cancer Surgery: No Hx Thoracic Surgery: No Hx Orthopedic: Yes (SPINAL SURGERY X2) Hx Urinary Tract Surgery: No Family History Colon CA Social History Smoking Status: Former Smoker Hx Substance Use: No Hx Alcohol Use: No Allergies Coded Allergies: Ibuprofen (Verified Allergy, Unknown, RINGING IN EARS,PARTIAL LOSS HEARING , 08/02/17) Ketorolac Tromethamine (Verified Allergy, Unknown, ROARING SOUND IN EARS, 08/02/17) NSAIDs (Verified Allergy, Unknown, RINGING IN EARS, 08/02/17) Zoledronic Acid (Verified Allergy, Unknown, FLU LIKE SYMPTOMS SEVERE HEADACHE, 08/02/17) Promethazine (Verified Adverse Reaction, Mild, RESTLESS LEGS, 08/02/17) Alprazolam (Verified Adverse Reaction, Unknown, LOSS OF HEARING, 08/02/17) ringing in ears Aspirin (Verified Adverse Reaction, Unknown, RINGING IN EARS,PARTIAL HEARING LOSS, 08/02/17) RINGING IN EARS,PARTIAL HEARING LOSS Ketorolac (Verified Adverse Reaction, Unknown, ROARING IN EARS, 08/02/17) ROARING SOUND IN EARS Vancomycin (Verified Adverse Reaction, Unknown, ZACHERY SYNDROME, 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) Current Medications Reported Home Medications Medications Dose Route/Sig Max Daily Dose Days Date Category Dose Instructions Famotidine Premixed (Famotidine In Nacl) 1 Inj Inj 20 Mg IV DAILY 11/13/17 Reported INJECT INTO IV BAG DAILY Dextrose 2.5%/Sodium Chlo (Dextrose W/ Sodium Chloride) 1 Inj Inj 1 Dose IV DIRECTED 11/13/17 Reported 40MEQ POTASSIUM RUN OVER 4 HOURS IN IV BAG Magnesium (Magnesium Oxide (Mg Supplement) 250 Mg Tab 250 Mg PO DAILY 12/23/16 Reported Tpn Infusion (Total Parenteral Nutrition) 1 Ea Inj 2,300 Ml IV HS 12/03/16 Reported Humulin R (Insulin Human Regular) 100 Units/Ml Susp 14 Units DAILY 11/06/16 Reported INJECTS INTO TPN BAG DAILY. Ultram (Tramadol HCl) 50 Mg Tab 50 Mg PO Q4H PRN 08/03/15 Reported Biotin 1 Mg Cap 5,000 Mcg PO BID 10/06/14 Reported Vital Signs Weight (Kilograms): 44.55 Height (Feet): 5 Height (Inches): 4 Date Time Temp Pulse Resp B/P (MAP) Pulse Ox O2 Delivery O2 Flow Rate FiO2 11/14/17 10:31 37.0 82 18 138/70 (92) 98 Room Air Physical Exam General Appearance: no apparent distress Assessment and Plan PEG tube change
--- NOTE | 2017-11-14 11:35 | Discharge Instructions ---
Endoscopy Patient Instructions Date / Procedure Performed Nov 14, 2017. Percutaneous Endoscopic Gastrotomy (P.E.G) Tube Replacement / Removal Allergy Information Coded Allergies: Ibuprofen (Verified Allergy, Unknown, RINGING IN EARS,PARTIAL LOSS HEARING , 08/02/17) Ketorolac Tromethamine (Verified Allergy, Unknown, ROARING SOUND IN EARS, 08/02/17) NSAIDs (Verified Allergy, Unknown, RINGING IN EARS, 08/02/17) Zoledronic Acid (Verified Allergy, Unknown, FLU LIKE SYMPTOMS SEVERE HEADACHE, 08/02/17) Promethazine (Verified Adverse Reaction, Mild, RESTLESS LEGS, 08/02/17) Alprazolam (Verified Adverse Reaction, Unknown, LOSS OF HEARING, 08/02/17) ringing in ears Aspirin (Verified Adverse Reaction, Unknown, RINGING IN EARS,PARTIAL HEARING LOSS, 08/02/17) RINGING IN EARS,PARTIAL HEARING LOSS Ketorolac (Verified Adverse Reaction, Unknown, ROARING IN EARS, 08/02/17) ROARING SOUND IN EARS Vancomycin (Verified Adverse Reaction, Unknown, ZACHERY SYNDROME, 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 PEG tube change; 20 Fr balloon PEG placed, bumper at 2 cm Medication Instructions Stopped Medication(s): USES HEPARIN FLUSHES Provider Instructions Activity Recommendations * Resume regular activity . Diet Recommendations * Resume previous diet. * Advance diet as tolerated. * Before each feeding, aspirate the tube for residual gastric contents. Hold feedings for residual of 50 ml or more. * Elevate the head of the bed during and after feedings for 30-60 minutes . Medication Instructions * Resume usual medications. * Always flush the tube with warm water after administration of medication. Follow-Up Information Follow-up with DR GABBY HAGER as scheduled Anesthesia Information What You Should Know You have had a procedure that required some medicine to reduce anxiety and discomfort. This treatment is called moderate sedation. After receiving the treatment, you may be sleepy, but you will be able to breathe on your own. The effects of the treatment may last for several hours. Follow these instructions along with Activity/Diet recommendations noted above: * Do NOT do anything where dizziness or clumsiness would be dangerous. * Rest quietly at home today, then you can be up and about tomorrow. * Have a responsible person stay with you the rest of today. * You may have had an I.V. today. If so, you may take the dressing off later today. Symptoms Additional Instructions If you experience any of the following symptoms after your procedure seek medical attention at your closest Emergency Room and/or call your primary care physician immediately: * Severe abdominal pain or bloating * Fever greater than 101.1 degrees within 24 hours after the procedure * Uncontrolled nausea and vomiting Avoid all tobacco products. If you need help to stop smoking, call [place]'s FREE QUIT LINE at [phone]. Your discharge instructions were prepared by provider Fred Bill. Patient Instructions Signature Page Caroline Lopez Patient (or Guardian) Signature/Date: I have read and understand the instructions given to me by my caregivers. Caregiver/RN/Doctor Signature/Date: The above-named patient and/or guardian has received patient instructions on this date. + Original Patient Signature Page (only) stays with chart. Please make copy for patient.
== END | disposition home or self-care (01) ==
LOC: C.GI 09:55
PROVIDERS: ATTEND Internal Medicine Gastroenterology
DX: K94.23 Gastrostomy malfunction (principal); E46 Unspecified protein-calorie malnutrition; Z88.6 Allergy status to analgesic agent; Z88.1 Allergy status to other antibiotic agents; Z79.4 Long term (current) use of insulin; Z87.891 Personal history of nicotine dependence; Z80.0 Family history of malignant neoplasm of digestive organs

== ENCOUNTER → 2017-11-21 | Outpatient (CLI) | payer BC ==
[2017-11-21 14:40] LABS: ALBUMIN 3.2 gm/dl (3.4-5.0); ALT/SGPT 82 U/L (12-78); BLOOD UREA NITROGEN 48 mg/dl (7-18); CALCIUM 9.1 mg/dl (8.5-10.1); CARBON DIOXIDE 33 mmol/L (21-32); CREATININE 0.79 mg/dl (0.60-1.20); GLUCOSE 95 mg/dl (70-99); SODIUM 133 mmol/L (136-145)
[2017-11-21 14:43] LABS: ALKALINE PHOSPHATASE 183 U/L (45-117); AST/SGOT 95 U/L (15-37); PHOSPHORUS 3.6 mg/dl (2.5-4.9); TOTAL PROTEIN 7.8 gm/dl (6.4-8.2)
== END | disposition home or self-care (01) ==
LOC: C.LABSPEC 14:03
PROVIDERS: ATTEND Internal Medicine
DX: K56.609 Unspecified intestinal obstruction, unspecified as to partial versus complete obstruction (principal); Z45.2 Encounter for adjustment and management of vascular access device; K85.90 Acute pancreatitis without necrosis or infection, unspecified; Z93.1 Gastrostomy status

== ENCOUNTER → 2017-12-26 | Outpatient (CLI) | payer BC ==
[2017-12-26 14:00] LABS: BLOOD UREA NITROGEN 46 mg/dl (7-18); CALCIUM 9.2 mg/dl (8.5-10.1); CARBON DIOXIDE 31 mmol/L (21-32); GLUCOSE 100 mg/dl (70-99); PHOSPHORUS 3.7 mg/dl (2.5-4.9); POTASSIUM 3.2 mmol/L (3.5-5.1); SODIUM 137 mmol/L (136-145)
== END | disposition home or self-care (01) ==
LOC: C.LABSPEC 12:53
PROVIDERS: ATTEND Internal Medicine
DX: K56.609 Unspecified intestinal obstruction, unspecified as to partial versus complete obstruction (principal); Z45.2 Encounter for adjustment and management of vascular access device; K85.90 Acute pancreatitis without necrosis or infection, unspecified; Z93.1 Gastrostomy status

== ENCOUNTER → 2018-01-22 | Outpatient (CLI) | payer BC ==
[2018-01-22 13:56] LABS: BLOOD UREA NITROGEN 49 mg/dl (7-18); CARBON DIOXIDE 36 mmol/L (21-32); CREATININE 0.83 mg/dl (0.60-1.20); GLUCOSE 105 mg/dl (70-99); POTASSIUM 3.2 mmol/L (3.5-5.1); SODIUM 136 mmol/L (136-145)
[2018-01-22 13:57] LABS: PHOSPHORUS 3.4 mg/dl (2.5-4.9)
== END | disposition home or self-care (01) ==
LOC: C.LABSPEC 12:30
PROVIDERS: ATTEND Internal Medicine
DX: K56.609 Unspecified intestinal obstruction, unspecified as to partial versus complete obstruction (principal)

== ENCOUNTER → 2018-04-03 | Outpatient (CLI) | payer BC ==
[~2018-04-03] MED LIST changes: +BIOTCAP2 PO
[2018-04-03 14:08] LABS: ALBUMIN 3.3 gm/dl (3.4-5.0); ALKALINE PHOSPHATASE 173 U/L (45-117); ALT/SGPT 70 U/L (12-78); AST/SGOT 82 U/L (15-37); BLOOD UREA NITROGEN 55 mg/dl (7-18); CALCIUM 9.5 mg/dl (8.5-10.1); CARBON DIOXIDE 40 mmol/L (21-32); CREATININE 0.86 mg/dl (0.60-1.20); GLUCOSE 117 mg/dl (70-99); PHOSPHORUS 3.2 mg/dl (2.5-4.9); POTASSIUM 2.7 mmol/L (3.5-5.1); SODIUM 136 mmol/L (136-145); TOTAL PROTEIN 8.1 gm/dl (6.4-8.2)
--- NOTE | 2018-04-12 12:39 | CODING QUERY NO DIAGNOSIS ---
TREATMENT RENDERED WITHOUT A DIAGNOSIS 63 To promote full compliance with coding requirements relating to patient care, physician participation is requested in all cases of cashiers supervisor uncertainty. Please assist us with providing a diagnosis/symptom for the test(s) below: A diagnosis/symptom was not documented on your Order. A valid diagnosis/symptom is required to bill all insurances. Please remember that we are unable to code a diagnosis of rule out, probable, possible, questionable, or suspected. DOS 04/03/18 Tests that require a diagnosis: * COMP METABOLIC DIAGNOSIS: * MAGNESIUM DIAGNOSIS: * PHOSPHORUS DIAGNOSIS: * CALCIUM, IONIZED DIAGNOSIS: *WE RECEIVED LETTER BACK WITH ONLY A SIGNATURE, CAN YOU PLEASE ADD A DIAGNOSIS Provider Signature: Date: Thank you [facility] Information Management Once completed, please kindly fax back to [phone] For questions please call [phone]
== END | disposition home or self-care (01) ==
LOC: C.LABSPEC 12:46
PROVIDERS: ATTEND Internal Medicine
DX: Z01.89 Encounter for other specified special examinations (principal)

== ENCOUNTER → 2018-04-10 | Outpatient (CLI) | payer BC ==
[~2018-04-10] MED LIST changes: -BIOTCAP2 PO
[2018-04-10 17:21] LABS: BLOOD UREA NITROGEN 59 mg/dl (7-18); CALCIUM 9.2 mg/dl (8.5-10.1); CARBON DIOXIDE 39 mmol/L (21-32); CREATININE 0.83 mg/dl (0.60-1.20); GLUCOSE 95 mg/dl (70-99); POTASSIUM 3.2 mmol/L (3.5-5.1); SODIUM 133 mmol/L (136-145)
== END | disposition home or self-care (01) ==
LOC: C.LABSPEC 16:33
PROVIDERS: ATTEND Internal Medicine
DX: K56.609 Unspecified intestinal obstruction, unspecified as to partial versus complete obstruction (principal)

== ENCOUNTER → 2018-04-24 | Outpatient (CLI) | payer BC ==
[2018-04-24 16:27] LABS: BLOOD UREA NITROGEN 51 mg/dl (7-18); CARBON DIOXIDE 34 mmol/L (21-32); CREATININE 0.77 mg/dl (0.60-1.20); GLUCOSE 85 mg/dl (70-99); PHOSPHORUS 3.3 mg/dl (2.5-4.9); POTASSIUM 3.6 mmol/L (3.5-5.1); SODIUM 134 mmol/L (136-145)
== END | disposition home or self-care (01) ==
LOC: C.LABSPEC 16:08
PROVIDERS: ATTEND Internal Medicine
DX: K56.609 Unspecified intestinal obstruction, unspecified as to partial versus complete obstruction (principal)

== ENCOUNTER 2021-10-25 08:54 | Inpatient (IN) ==
--- NOTE | 2021-10-25 09:32 | Emergency Department Note ---
History of Present Illness General Chief complaint: Fall Time Seen by Provider: 10/25/21 09:04 Source: patient and family Mode of arrival: EMS Limitations: altered mental status (Falls asleep frequently between questions.) History of Present Illness Provider complaint: Inability to walk Onset (ago): day(s) Location: lower extremity Pain Consistency: + constant Maximum Pain Intensity: 9 Quality: + other (Inability to walk) Relieved By: + none Exacerbated By: + medication (Ativan and pain medicines) Associated symptoms: no chest pain, no cough, no fever/chills, no headaches, no nausea/vomiting, no shortness of breath or no syncope This is a 56-year-old female brought in by ambulance for inability to walk since 3 days ago after getting an MRI of her liver. The patient took Ativan and pain meds in order to have the MRI and since the MRI was completed she has had difficulty getting around at home. She is not taking care of her self. She stays in bed. She is unable to walk. She normally uses her walker to get a round. She fell yesterday and states that she twisted her left ankle causing her to fall. She states she is certain that she did not hit her head. She had no LOC. She denies any headache, neck pain, chest pain, shortness of breath, abdominal pain, vomiting or diarrhea. She denies any urinary symptoms. She does have chronic pain and is on pain medications for this. She also states that she took Ativan and that is why she feels so sleepy. I was able to speak to her when he arrived in the emergency department. He stated that she had to take 2 doses of Ativan prior to her MRI in order to stay still and remain comfortable. Since then he did not realize that she has been taking Ativan. He noted that she has been very tired and sleeping all the time so he did not know what to do and called the ambulance today. He does state that yesterday he was helping her get to bed and her legs went out from under her. She did not fall because he caught her. He did wish to take her to the emergency department yesterday but she had refused. He did not realize that she took Ativan yesterday and this morning as well. Home Medications Medication Instructions Recorded Confirmed Type buprenorphine HCl 8 mg sublingual 8 mg SUBLINGUAL TID PRN 11/01/20 10/25/21 History tablet amoxicillin 875 mg-potassium 1 tab PO BID 10 Days #20 tab 10/20/21 10/25/21 Rx clavulanate 125 mg tablet Allergies Allergy/AdvReac Type Severity Reaction Status Date / Time ibuprofen Allergy Intermediate RINGING IN Verified 10/25/21 10:09 EARS,PARTIAL LOSS HEARING ketorolac Allergy Intermediate ROARING Verified 10/25/21 10:09 SOUND IN EARS NSAIDS (Non-Steroidal Allergy Intermediate RINGING IN Verified 10/25/21 10:09 Anti-Inflamma EARS zoledronic acid Allergy Intermediate FLU LIKE Verified 10/25/21 10:09 SYMPTOMS SEVERE HEADACHE vancomycin AdvReac Severe ZACHERY Verified 10/25/21 10:09 SYNDROME alprazolam AdvReac Intermediate LOSS OF Verified 10/25/21 10:09 HEARING aspirin AdvReac Intermediate RINGING IN Verified 10/25/21 10:09 EARS,PARTIAL HEARING LOSS promethazine AdvReac Mild RESTLESS Verified 10/25/21 10:09 LEGS Past Med/Surg History Medical History Anxiety Chronic pain disorder Chronic pancreatitis Esophageal reflux Fatty liver Secondary to chronic TPN use Gastrointestinal tube present Gastrostomy tube in place Hearing deficit Hypersplenism Infected venous access port Iron deficiency anemia IRON INFUSIONS IN PAST Lumbar spinal stenosis Malnutrition Neutropenia On total parenteral nutrition (TPN) 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 Osteoporosis Peripheral neuropathy Radiation enterocolitis Severe protein-energy malnutrition Short bowel syndrome Small bowel obstruction Subclinical hypothyroidism Thoracic compression fracture Urinary incontinence Surgical History History of cholecystectomy History of colonoscopy History of esophagogastroduodenoscopy (EGD) History of kyphoplasty (~2018) History of spinal surgery THORACIC AND LUMBAR AREA TUMOR REMOVED 1991 + 1992 - RADIATION 5 WEEKS History of surgery PEG TUBE INSERTION (NOTHING RUNS THROUGH PEG TUBE/USED ONLY FOR RELEASING FOOD PRODUCTS D/T SMALL BOWEL OBSTRUCTION) "PT EATS FOR COMFORT" Port-A-Cath in place BRUNER Status post insertion of percutaneous endoscopic gastrostomy (PEG) tube Family History Mother Diabetes Hypertension Father Family hx of colon cancer Bladder cancer Sister Alcohol abuse Deep vein thrombosis Hypertension Brother Hypertension Grandmother Hypertension Aunt Hypertension Other Cancer Social History Smoking Status: Never smoker Tobacco Type: Cigarettes Age Started Using Tobacco: 12; Age Quit Using Tobacco: 21; Second Hand Exposure: No; Hx Alcohol Use: No Hx Substance Use: No Preferred Language: Lao Communication Ability: Effective Visual Impairment: No Limitations Fuselage Framer Required: No Beliefs That Will Affect Care: None marital status: Current Living Situation: Spouse current occupational status: disabled Feels Safe at Home: Yes caffeine: Yes Dental Care, Regularly: Yes Physical Activity Frequency: Does not Exercise Seatbelt Use: always Sunscreen Use: No Assistive Devices: Cane, Glasses and Walker Review of Systems See HPI for pertinent positives & negatives. and A total of 10 systems reviewed and were otherwise negative Physical Exam Vital Signs Vital Signs - 24 hr 10/25/21 09:12 10/25/21 09:44 10/25/21 10:25 Temperature 36.8 C Temperature Source Oral Pulse Rate 70 64 Pulse Rate [Right Finger] 70 Pulse Rate from SpO2 Sensor Respiratory Rate 20 12 Respiratory Effort / Characteristics Non-Labored Spontaneous Respiratory Depth Normal Respiratory Pattern Regular Blood Pressure 168/89 H Blood Pressure [Right Arm] 168/89 H Blood Pressure Mean 115 Blood Pressure Mean [Right Arm] 115 Pulse Oximetry 98 Oxygen Delivery Method Room Air Room Air Sepsis Recent Fever Within 48 Hours No Sepsis New/Unexplained Change in Mental Status No Sepsis Action Taken by Nursing No Action Required 10/25/21 10:30 10/25/21 11:00 10/25/21 11:30 Temperature Temperature Source Pulse Rate 66 64 68 Pulse Rate [Right Finger] Pulse Rate from SpO2 Sensor 64 67 Respiratory Rate 20 12 12 Respiratory Effort / Characteristics Respiratory Depth Respiratory Pattern Blood Pressure 154/86 H Blood Pressure [Right Arm] Blood Pressure Mean 108 Blood Pressure Mean [Right Arm] Pulse Oximetry 98 97 97 Oxygen Delivery Method Sepsis Recent Fever Within 48 Hours Sepsis New/Unexplained Change in Mental Status Sepsis Action Taken by Nursing 10/25/21 12:00 10/25/21 12:30 Temperature Temperature Source Pulse Rate 65 76 Pulse Rate [Right Finger] Pulse Rate from SpO2 Sensor 66 74 Respiratory Rate 16 20 Respiratory Effort / Characteristics Respiratory Depth Respiratory Pattern Blood Pressure Blood Pressure [Right Arm] Blood Pressure Mean Blood Pressure Mean [Right Arm] Pulse Oximetry 97 97 Oxygen Delivery Method Sepsis Recent Fever Within 48 Hours Sepsis New/Unexplained Change in Mental Status Sepsis Action Taken by Nursing Constitutional: Vital signs reviewed. Cachectic. Eyes: Pupils are equal round reactive to light. Conjunctiva are noninjected. ENT: Pharynx is clear without erythema or exudate. Mucous membranes are very dry.. Neck supple without meningeal signs. Respiratory: Clear to auscultation bilaterally. Breath sounds are equal bilaterally. Cardiovascular: Regular rate and rhythm. No rubs or gallops. GI: Soft, nondistended and nontender. G-tube. Bowel sounds are present. Musculoskeletal: No tenderness to the hips bilaterally. No swelling or deformity to the lower extremities. Tenderness to the left ankle diffusely without swelling or joint laxity. She keeps her legs in a flexed position at the knee and hips. Intravenous catheter in the right chest without signs of infection or drainage. Integumentary: No cyanosis. or jaundice. Neurological: The patient is somnolent but arousable. Answers questions but then falls asleep. Psychiatric: Unable to assess. Course Administered Medications Enoxaparin Sodium (Enoxaparin Inj 30 Mg/0.3 Ml Syr) 30 mg SQ Q24H ARJUN Stop: 11/24/21 15:59 Last Admin: 10/25/21 16:09 Dose: Not Given Documented by: [id number] Discontinued Medications Enoxaparin Sodium (Enoxaparin Inj 30 Mg/0.3 Ml Syr) Confirm Administered Dose 30 mg .ROUTE .STK-MED ONE Stop: 10/25/21 15:52 Last Admin: 10/25/21 15:56 Dose: 30 mg Documented by: [id number] Medical Decision Making Differential Diagnosis Accidental overdose, intentional overdose, toxidrome, chronic pain syndrome, metabolic derangement Medical Records Attestation: I reviewed the patient's medical records. I did perform a limited focused review of portions of the patient's old chart on the electronic medical record. The patient had a visit with her primary care physician last week and was treated with Augmentin for sinusitis. Home Medications Current Medication List: was personally reviewed by me Laboratory Data Attestation: I reviewed the patient's lab results. Result diagrams: 10/25/21 09:40 10/25/21 09:40 Lab Results 02/14/22 02/14/22 02/14/22 Range/Units 09:40 09:40 09:40 WBC 4.45 L (4.8-10.8) K/uL RBC 3.69 L (4.2-5.4) M/uL Hgb 11.3 L (12.0-16.0) g/dL Hct 35.0 L (37-47) % MCV 94.9 (80-100) fL MCH 30.6 (25-34) pg MCHC 32.3 (32-36) g/dL RDW Std Deviation 56.5 H (36.4-46.3) fL RDW Coeff of Esau 16.0 H (11.5-14.5) % Plt Count 87 L (130-400) K/uL MPV 12.2 H (7.4-10.4) fL Immature Gran % (Auto) 0.0 % Neut % (Auto) 81.8 % Lymph % (Auto) 7.2 % [place] % (Auto) 10.8 % Eos % (Auto) 0.2 % Baso % (Auto) 0.0 % Neut # (Auto) 3.64 (1.4-6.5) K/uL Lymph # (Auto) 0.32 L (1.2-3.4) K/uL [place] # (Auto) 0.48 (0.11-0.59) K/uL Eos # (Auto) 0.01 (0-0.5) K/uL Baso # (Auto) 0.00 (0-0.2) K/uL Immature Gran # (Auto) 0.00 (0.00-0.02) K/uL Platelet Estimate Decreased L (Normal) Sodium 139 (136-145) mmol/L Potassium 4.3 (3.5-5.1) mmol/L Chloride 110 H (98-107) mmol/L Carbon Dioxide 22 (21-32) mmol/L Anion Gap 7 (3-11) BUN 45 H (6-23) mg/dl Creatinine 0.61 (0.6-1.2) mg/dl Est Cr Clr Drug Dosing 67.6 ml/min Est GFR ( Amer) 116.6 ml/min Est GFR (Non-Af Amer) 100.6 ml/min BUN/Creatinine Ratio 73.8 H (10-20) Glucose 94 (70-99(Fasting)) mg/dl Calcium 8.4 L (8.5-10.1) mg/dl Magnesium 1.9 (1.7-2.4) mg/dl Total Bilirubin 6.0 H (0.2-1.0) mg/dl AST 143 H (13-39) U/L ALT 144 H (7-52) U/L Alkaline Phosphatase 249 H (34-104) U/L Troponin I < 0.03 (0-0.04) ng/ml Total Protein 6.7 (6.0-8.3) gm/dl Albumin 2.9 L (3.4-5.0) gm/dl Globulin 3.8 (2.5-4.0) gm/dl Albumin/Globulin Ratio 0.8 L (0.9-2) Salicylates < 3.0 L (3.0-30) mg/dl Acetaminophen < 3 L (10-30) ug/ml Ethyl Alcohol mg/dL (<10.0) mg/dl SARS-CoV-2, RNA, NAAT (NEGATIVE) 10/25/21 10/25/21 Range/Units 09:40 12:43 WBC (4.8-10.8) K/uL RBC (4.2-5.4) M/uL Hgb (12.0-16.0) g/dL Hct (37-47) % MCV (80-100) fL MCH (25-34) pg MCHC (32-36) g/dL RDW Std Deviation (36.4-46.3) fL RDW Coeff of Esau (11.5-14.5) % Plt Count (130-400) K/uL MPV (7.4-10.4) fL Immature Gran % (Auto) % Neut % (Auto) % Lymph % (Auto) % [place] % (Auto) % Eos % (Auto) % Baso % (Auto) % Neut # (Auto) (1.4-6.5) K/uL Lymph # (Auto) (1.2-3.4) K/uL [place] # (Auto) (0.11-0.59) K/uL Eos # (Auto) (0-0.5) K/uL Baso # (Auto) (0-0.2) K/uL Immature Gran # (Auto) (0.00-0.02) K/uL Platelet Estimate (Normal) Sodium (136-145) mmol/L Potassium (3.5-5.1) mmol/L Chloride (98-107) mmol/L Carbon Dioxide (21-32) mmol/L Anion Gap (3-11) BUN (6-23) mg/dl Creatinine (0.6-1.2) mg/dl Est Cr Clr Drug Dosing ml/min Est GFR ( Amer) ml/min Est GFR (Non-Af Amer) ml/min BUN/Creatinine Ratio (10-20) Glucose (70-99(Fasting)) mg/dl Calcium (8.5-10.1) mg/dl Magnesium (1.7-2.4) mg/dl Total Bilirubin (0.2-1.0) mg/dl AST (13-39) U/L ALT (7-52) U/L Alkaline Phosphatase (34-104) U/L Troponin I (0-0.04) ng/ml Total Protein (6.0-8.3) gm/dl Albumin (3.4-5.0) gm/dl Globulin (2.5-4.0) gm/dl Albumin/Globulin Ratio (0.9-2) Salicylates (3.0-30) mg/dl Acetaminophen (10-30) ug/ml Ethyl Alcohol mg/dL < 10.0 (<10.0) mg/dl SARS-CoV-2, RNA, NAAT NEGATIVE (NEGATIVE) Imaging Data Radiologist's Impression: Ankle X-Ray 10/25/21 09:25 LEFT ANKLE 3 VIEWS CLINICAL HISTORY: Fall with left ankle injury. FINDINGS: 3 views of the left ankle are obtained. No prior studies are available for comparison at the time of dictation. The skeletal structures are osteopenic. No fracture is identified. The ankle mortise is intact. There is no joint effusion. Mild soft tissue swelling is seen around the ankle. IMPRESSION: No fracture is identified. Electronically signed by: Zachary Storm M.D. 10/25/2021 10:06 AM Chest X-Ray 10/25/21 09:25 XR chest 1V portable CLINICAL HISTORY: ams. Evaluate cardiopulmonary status COMPARISON STUDY: No previous studies for comparison. TECHNIQUE: 1 view of the chest FINDINGS: Single frontal view of the chest demonstrates the cardiomediastinal silhouette to be within normal limits. A Port-A-Cath is in place. There is a decreased inspiratory effort with elevation of the hemidiaphragms and crowding of the bronchovascular markings at the lung bases and centrally. The lungs are clear of alveolar opacities. There is no evidence for pleural effusion. There is no evidence for vascular congestion. There is no acute osseous pathology. IMPRESSION: 1. There is a decreased inspiratory effort with otherwise no acute chest disease. ACT 112: Negative or not required by law. Electronically signed by: Isauro Franco M.D. 10/25/2021 10:01 AM ECG Data Attestation: I personally reviewed and interpreted this ECG as follows: Indication: + altered mental status Rate (beats per minute): 67 Rhythm: + normal sinus ECG Intervals/blocks: + Normal QT ECG [place]: + Normal ECG ST segments: no ST elevation ECG Findings: no PVCs MDM Narrative I did evaluate the patient as noted above. She is presenting with generalized weakness. She tells me she fell yesterday because her ankle twisted but she did not fall to the ground. I did obtain history from her but I am not clear how reliable this history is. She is very somnolent although appears to be answering questions appropriately when I wake her up. I did obtain history also from her son over the telephone as well as her mother who came to the emergency department. Initially tried to call her but he was not available. He later came to the emergency department and I obtain further history from him. Apparently she has been weak since taking Ativan for a MRI 3 days ago. He did not realize that she was taking more Ativan over the past several days and notes that she had severe weakness last night and almost fell to the ground when her legs gave out. He was there to catch her and she did not injure herself. In the emergency department she admits that she took Ativan last night as well as this morning. She states this is to control her back pain. She is also on buprenorphine. IV access was established. I did place an order for continuous cardiac monitoring. The monitor showed normal sinus rhythm at a rate of 68 bpm. I did order and personally review the patient's 12-lead EKG as described above. There is no evidence of acute ischemia or dysrhythmia. No QT prolongation. No widening of the QRS. I did order and personally reviewed the images of the patient's chest x-ray as described above. There is no evidence of pneumonia. I also x-rayed her ankle on the left side which demonstrated no fracture. I did order a urine analysis. I did order and review the patient's blood work as noted in the electronic medical record. CBC demonstrates leukopenia and anemia and thrombocytopenia which are old. Her platelet count is 87. Hemoglobin is 11.3 and white count is 4.4. Electrolytes demonstrate a chloride of 110 and a calcium of 8.4 but are otherwise unremarkable. Troponin is negative. LFTs are grossly abnormal but she has had a history of this. Her bilirubin is 6 today and was about the same earlier this month. AST and ALT of 143 and 144. Salicyl ate and acetaminophen levels are low ethyl alcohol is negative. I did reassess the patient multiple times. She remains quite somnolent. I did discuss the test results with her and her . I did recommend hospitalization for further care and evaluation. I suspect her symptoms may be from unintentional overdose with benzos and opiates. I did discuss case with the hospitalist and case supervisor. Impression & Plan Acute alteration in mental status, Chronic pain syndrome, Overdose, Left ankle sprain, Pancytopenia, Abnormal LFTs, Generalized weakness, Cachexia, Ambulatory dysfunction Discharge Plan Visit Data Chief Complaint: Fall ED Provider: Eduardo Ross Discharge Problem: Acute alteration in mental status, Chronic pain syndrome, Overdose, Left ankle sprain, Pancytopenia, Abnormal LFTs, Generalized weakness, Cachexia, Ambulatory dysfunction Patient Disposition: Being Evaluated by Hospitalist Discharge Instructions Interventions: ED Discharge Assessment Last Done: 10/25/21 15:44 Discharge Problem: Overdose Qualifiers: Encounter type: initial encounter Injury intent: undetermined intent Qualified Code(s): T50.904A - Poisoning by unspecified drugs, medicaments and biological substances, undetermined, initial encounter Left ankle sprain Qualifiers: Encounter type: initial encounter Involved ligament of ankle: unspecified ligament Qualified Code(s): S93.402A - Sprain of unspecified ligament of left ankle, initial encounter
--- NOTE | 2021-10-25 10:03 | XRay Report ---
XR chest 1V portable CLINICAL HISTORY: ams. Evaluate cardiopulmonary status COMPARISON STUDY: No previous studies for comparison. TECHNIQUE: 1 view of the chest FINDINGS: Single frontal view of the chest demonstrates the cardiomediastinal silhouette to be within normal li mits. A Port-A-Cath is in place. There is a decreased inspiratory effort with elevation of the hemidi aphragms and crowding of the bronchovascular markings at the lung bases and centrally. The lungs are clear of alveolar opacities. There is no evidence for pleural effusion. There is no evidence for vasc ular congestion. There is no acute osseous pathology. IMPRESSION: 1. There is a decreased inspiratory effort with otherwise no acute chest disease. ACT 112: Negative or not required by law. Electronically signed by: Isauro Franco M.D. 10/25/2021 10:01 AM
--- NOTE | 2021-10-25 10:07 | XRay Report ---
LEFT ANKLE 3 VIEWS CLINICAL HISTORY: Fall with left ankle injury. FINDINGS: 3 views of the left ankle are obtained. No prior studies are available for comparison at th e time of dictation. The skeletal structures are osteopenic. No fracture is identified. The ankle mor tise is intact. There is no joint effusion. Mild soft tissue swelling is seen around the ankle. IMPRESSION: No fracture is identified. Electronically signed by: Zachary Storm M.D. 10/25/2021 10:06 AM
[2021-10-25 10:14] LABS: Eosinophils # (auto) 0.01 K/uL (0-0.5); Eosinophils % (auto) 0.2 %; Hemoglobin 11.3 g/dL (12.0-16.0); Lymphocytes # (auto) 0.32 K/uL (1.2-3.4); Lymphocytes % (auto) 7.2 %; Mean Corpuscular Hemoglobin 30.6 pg (25-34); Mean Corpuscular Hgb Conc 32.3 g/dL (32-36); Mean Corpuscular Volume 94.9 fL (80-100); Mean Platelet Volume 12.2 fL (7.4-10.4); Monocytes # (auto) 0.48 K/uL (0.11-0.59); Monocytes % (auto) 10.8 %; Neutrophils # (auto) 3.64 K/uL (1.4-6.5); Neutrophils % (auto) 81.8 %; Platelet Count 87 K/uL (130-400); Platelet Estimate Decreased (Normal); RDW Standard Deviation 56.5 fL (36.4-46.3); Red Blood Count 3.69 M/uL (4.2-5.4); White Blood Count 4.45 K/uL (4.8-10.8)
[2021-10-25 10:20] LABS: Troponin I < 0.03 ng/ml (0-0.04)
[2021-10-25 10:22] LABS: Acetaminophen < 3 ug/ml (10-30); Salicylate < 3.0 mg/dl (3.0-30)
[2021-10-25 11:23] LABS: Alanine Aminotransferase 144 U/L (7-52); Albumin Globulin Ratio 0.8 (0.9-2); Albumin Level 2.9 gm/dl (3.4-5.0); Alkaline Phosphatase 249 U/L (34-104); Anion Gap 7 (3-11); Aspartate Aminotransferase 143 U/L (13-39); BUN Creatinine Ratio 73.8 (10-20); Blood Urea Nitrogen 45 mg/dl (6-23); Calcium 8.4 mg/dl (8.5-10.1); Carbon Dioxide 22 mmol/L (21-32); Chloride 110 mmol/L (98-107); Creatinine Clr Calc Pharmacy 67.6 ml/min; Est GFR (African American) 116.6 ml/min; Est GFR (Non-African American) 100.6 ml/min; Globulin 3.8 gm/dl (2.5-4.0); Glucose 94 mg/dl (70-99(Fasting)); Magnesium 1.9 mg/dl (1.7-2.4); Potassium 4.3 mmol/L (3.5-5.1); Sodium 139 mmol/L (136-145); Total Protein 6.7 gm/dl (6.0-8.3)
--- NOTE | 2021-10-25 11:44 | History & Physical Report ---
Date of Service October 25, 2021 Assessment & Plan (1) Metabolic encephalopathy: Plan: -Differential includes hepatic encephalopathy versus overdose, either due to benzodiazepines or more likely buprenorphine. Ammonia level 35, within normal limits, making hepatic encephalopathy an unlikely cause. Patient does not have a prescription for Ativan, was given a one-time dose on Monday for MRI. Patient takes 8 mg of buprenorphine 3 times daily as needed for chronic pain. There is a suspicion that patient may have taken more of this over the last 24 to 48 hours due to a fall at home this weekend in which she twisted her ankle. -Patient is currently protecting airway. She is somnolent but arousable and will answer questions. Pupils mildly dilated, equal. -Continue to monitor status for now, anticipating that patient will gradually become more alert as opioids wear off. Can consider giving a low-dose of Narcan to help determine etiology of patient's altered status, however there is concern that this will cause withdrawal symptoms. (2) Jaundice: Plan: -Evidently developed jaundice sometime in early September, patient has known fatty liver disease likely secondary to chronic TPN use. Has had abnormal liver chemistries in the past, however typically in his alk phos that is elevated, bilirubin has not been this markedly elevated in the past. Labs from 09/29/2021 revealed total bili 8.0, alk phos 248, AST 209, ALT 177. -Abdominal ultrasound was performed on 09/28/2021 by [email or web address] which revealed hepatic steatosis with a small amount of perihepatic ascites and a questionable right renal mass. Per hepatology, differential diagnosis includes rapidly progressing TPN associate cholestasis, progressive steatohepatitis and fibrosis of liver from YOST, or infiltrative diseases of liver that was not apparent on ultrasound. MRI of the liver was recommended, which patient had on Monday with [facility]. Results not yet available. If MRI is unrevealing, hepatology is recommending liver biopsy. (3) Abnormal LFTs: Plan: -See above. (4) Chronic pain syndrome: Plan: -Patient takes 8 mg of buprenorphine 3 times daily as needed for chronic pain. There is a suspicion that patient may have taken more of this over the weekend, possibly due to confusion from Ativan on Monday vs an additional need for pain control due to a fall at home in which she twisted her ankle. X ray of ankle was performed in the ED which revealed no fracture. -We will hold this medication for now. (5) On total parenteral nutrition (TPN): Plan: -Consult placed to nutrition for management. -Per hepatology note from 10/05/2021, recommend keeping lipid infusions to a minimum and using SMOF whenever possible. (6) Pancytopenia: Plan: -Chronic History of Present Illness Chief Complaint: Generalized weakness, lethargy Primary Care Provider: Kenney Carpenter MD Patient is a 56 y/o F with a PMH of fatty liver, severe protein-energy malnutrition on TPN, SBO, osteoporosis, lumbar spinal stenosis, chronic pain disorder, and anxiety who presents via ambulance with her today due to generalized weakness and possible medication overdose. History is obtained from as patient is very drowsy and having difficulty recalling history. Per , patient was scheduled for an MRI of her liver to investigate a possible mass on Monday and was prescribed Ativan for the procedure. Patient took either one half or 1 whole pill on Monday and was drowsy later on that day. This continued into Monday, patient was more lethargic than usual but still able to ambulate. On Monday, patient was noted to be sleeping much of the day and unable to care for self. states she was walking up the stairs when her legs gave out from under her and she fell, twisting her ankle. There is also an incident where she was walking and her legs gave out on her however was able to catch her. states she did not hit her head or lose consciousness with the fall, had not been complaining of headache or neck pain. Other than patient's chronic pain, the only other pain she complains of is ankle pain due to the fall. A more thorough ROS is unobtainable at this time due to patient's cognitive status. At baseline, patient manages her own medications. She takes buprenorphine 8 mg TID for chronic pain. Patient's is unaware if she had been taking more buprenorphine than usual, possibly due to confusion regarding previously taken doses due to Ativan effects or to treat her ankle pain from the fall previously mentioned. He is unaware of how much Ativan she was prescribed and if she had access to more after the doses that she took on Monday for MRI. Allergies Allergy/AdvReac Type Severity Reaction Status Date / Time ibuprofen Allergy Intermediate RINGING IN Verified 10/25/21 10:09 EARS,PARTIAL LOSS HEARING ketorolac Allergy Intermediate ROARING Verified 10/25/21 10:09 SOUND IN EARS NSAIDS (Non-Steroidal Allergy Intermediate RINGING IN Verified 10/25/21 10:09 Anti-Inflamma EARS zoledronic acid Allergy Intermediate FLU LIKE Verified 10/25/21 10:09 SYMPTOMS SEVERE HEADACHE vancomycin AdvReac Severe ZACHERY Verified 10/25/21 10:09 SYNDROME alprazolam AdvReac Intermediate LOSS OF Verified 10/25/21 10:09 HEARING aspirin AdvReac Intermediate RINGING IN Verified 10/25/21 10:09 EARS,PARTIAL HEARING LOSS promethazine AdvReac Mild RESTLESS Verified 10/25/21 10:09 LEGS Home Medications Medication Instructions Recorded Confirmed Type buprenorphine HCl 8 mg sublingual 8 mg SUBLINGUAL TID PRN 11/01/20 10/25/21 History tablet amoxicillin 875 mg-potassium 1 tab PO BID 10 Days #20 tab 10/20/21 10/25/21 Rx clavulanate 125 mg tablet Past Med/Surg History Medical History Anxiety Chronic pain disorder Chronic pancreatitis Esophageal reflux Fatty liver Secondary to chronic TPN use Gastrointestinal tube present Gastrostomy tube in place Hearing deficit Hypersplenism Infected venous access port Iron deficiency anemia IRON INFUSIONS IN PAST Lumbar spinal stenosis Malnutrition Neutropenia On total parenteral nutrition (TPN) 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 Osteoporosis Peripheral neuropathy Radiation enterocolitis Severe protein-energy malnutrition Short bowel syndrome Small bowel obstruction Subclinical hypothyroidism Thoracic compression fracture Urinary incontinence Surgical History History of cholecystectomy History of colonoscopy History of esophagogastroduodenoscopy (EGD) History of kyphoplasty (~2018) History of spinal surgery THORACIC AND LUMBAR AREA TUMOR REMOVED 1991 + 1992 - RADIATION 5 WEEKS History of surgery PEG TUBE INSERTION (NOTHING RUNS THROUGH PEG TUBE/USED ONLY FOR RELEASING FOOD PRODUCTS D/T SMALL BOWEL OBSTRUCTION) "PT EATS FOR COMFORT" Port-A-Cath in place BRUNER Status post insertion of percutaneous endoscopic gastrostomy (PEG) tube Family History Mother Diabetes Hypertension Father Family hx of colon cancer Bladder cancer Sister Alcohol abuse Deep vein thrombosis Hypertension Brother Hypertension Grandmother Hypertension Aunt Hypertension Other Cancer Social History Smoking Status: Never smoker Tobacco Type: Cigarettes Age Started Using Tobacco: 12; Age Quit Using Tobacco: 21; Second Hand Exposure: No; Hx Alcohol Use: No Hx Substance Use: No Preferred Language: Korean Communication Ability: Effective Visual Impairment: No Limitations Child And Adolescent Psychiatrist Required: No Beliefs That Will Affect Care: None marital status: Current Living Situation: Spouse current occupational status: disabled Feels Safe at Home: Yes caffeine: Yes Dental Care, Regularly: Yes Physical Activity Frequency: Does not Exercise Seatbelt Use: always Sunscreen Use: No Assistive Devices: Cane, Glasses and Walker Review of Systems Review of Systems: Unobtainable due to cognitive status Physical Exam Physical Exam: General: Patient somnolent in bed but arousable with repetitive verbal stimulation. No acute distress. Cachectic. Head: Normocephalic, atraumatic ENT: Icterus present; PERRL, EOMI, no pharyngeal exudate, mucous membranes moist Chest: Clear to auscultation, on room air, no adventitious breath sounds Cardiac: Regular rate and rhythm, no murmur, no JVD, normal peripheral pulses, good capillary refill Abdominal: PEG tube in place on patient's left lower quadrant. NABS x 4 quadrants, soft, nontender to palpation, no rebound, guarding or tenderness Extremities: Normal inspection, no peripheral edema or erythema, calfs nontender to palpation Psych: Normal mood and affect. Neuro: AAO x 3, strength intact bilaterally and rated 5/5, no motor deficits, speech is clear, no peripheral sensory deficits Skin: Patient is mildly jaundiced. Results & Data Results & Data ([facility]) Vital Signs (Past 12 Hours) Vital Signs Temp Pulse Pulse Resp BP BP Pulse Ox 10/25/21 10:30 66 20 154/86 H 98 10/25/21 10:25 64 12 10/25/21 09:12 36.8 C 70 70 20 168/89 H 168/89 H 98 Laboratory Results Abnormal lab results 10/25/21 10/25/21 10/25/21 Range/Units 09:40 09:40 09:40 WBC 4.45 L (4.8-10.8) K/uL RBC 3.69 L (4.2-5.4) M/uL Hgb 11.3 L (12.0-16.0) g/dL Hct 35.0 L (37-47) % RDW Std Deviation 56.5 H (36.4-46.3) fL RDW Coeff of Esau 16.0 H (11.5-14.5) % Plt Count 87 L (130-400) K/uL MPV 12.2 H (7.4-10.4) fL Lymph # (Auto) 0.32 L (1.2-3.4) K/uL Platelet Estimate Decreased L (Normal) Chloride 110 H (98-107) mmol/L BUN 45 H (6-23) mg/dl BUN/Creatinine Ratio 73.8 H (10-20) Calcium 8.4 L (8.5-10.1) mg/dl Total Bilirubin 6.0 H (0.2-1.0) mg/dl AST 143 H (13-39) U/L ALT 144 H (7-52) U/L Alkaline Phosphatase 249 H (34-104) U/L Albumin 2.9 L (3.4-5.0) gm/dl Albumin/Globulin Ratio 0.8 L (0.9-2) Salicylates < 3.0 L (3.0-30) mg/dl Acetaminophen < 3 L (10-30) ug/ml Diagnostic Findings Ankle X-Ray 10/25/21 09:25 LEFT ANKLE 3 VIEWS CLINICAL HISTORY: Fall with left ankle injury. FINDINGS: 3 views of the left ankle are obtained. No prior studies are available for comparison at the time of dictation. The skeletal structures are osteopenic. No fracture is identified. The ankle mortise is intact. There is no joint effusion. Mild soft tissue swelling is seen around the ankle. IMPRESSION: No fracture is identified. Chest X-Ray 10/25/21 09:25 XR chest 1V portable CLINICAL HISTORY: ams. Evaluate cardiopulmonary status COMPARISON STUDY: No previous studies for comparison. TECHNIQUE: 1 view of the chest FINDINGS: Single frontal view of the chest demonstrates the cardiomediastinal silhouette to be within normal limits. A Port-A-Cath is in place. There is a decreased inspiratory effort with elevation of the hemidiaphragms and crowding of the bronchovascular markings at the lung bases and centrally. The lungs are clear of alveolar opacities. There is no evidence for pleural effusion. There is no evidence for vascular congestion. There is no acute osseous pathology. IMPRESSION: 1. There is a decreased inspiratory effort with otherwise no acute chest disease. Medications Administered Current Medications Enoxaparin Sodium (Enoxaparin Inj 30 Mg/0.3 Ml Syr) 30 mg SQ Q24H ARJUN Stop: 11/24/21 12:59 ECG Additional Comments: Poor data quality, interpretation may be adversely affected Normal sinus rhythm Septal infarct , age undetermined Abnormal ECG When compared with ECG of 01-NOV-2020 13:53, Septal infarct is now Present Code Status & VTE Plan Code Status Full code. VTE Prophylaxis Plan VTE Prophylaxis will be ordered: Yes Supervising Physician Co-Signing Physician Notes Patient seen and examined, chart reviewed, case discussed with Roopa Caballero and agree with assessment and plan except as otherwise Caroline is 56-year-old female who presents with concern of unintentional Ativan overdose. Received Ativan for an MRI on Monday, has continued to take Ativan over the weekend unbeknownst to her and has continued lethargy/somno lence with global weakness. Initially not working, was able to get reconciliation from pharmacy. Patient had only been prescribed 3 Ativan on Monday but does have longstanding buprenorphine use. Low suspicion that this is related to Ativan overdose, patient may have unintentionally ingested additional buprenorphine leading to sedation instead. She has ongoing hepatic evaluation as outpatient including CT/MRI with concern for progressive cholestasis with lipid infusion/TPN, and potentially pending biopsy if MRI unremarkable. These results were not available in our system that were performed at [facility] and are attempting to obtain the results of these. At bedside evaluation patient is very somnolent, but arouses easily to voice. She does follow commands and answer questions appropriately before falling back asleep. 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 Patient reports she is cold before going back to sleep. She chronically gets TPN (modified for low lipid content due to above concerns) through right port, does have a PEG tube which she has had frequent complication/balloon bursting/leaking which she does not get nutrition through which is used for removing fluid/gas only.Cachectic appearing. She is guarding her airway, respiratory rate 1622 without respiratory distress. Pupils are equal and reactive to light and accommodation, approximately 4-5 mm on exam. Visual acuity grossly intact. Urine grossly intact. RRR, lungs diminished but clear without overt wheezes/rales/rhonchi. EnCephalopathy, concern for toxic Initially reported as Ativan overdose, patient was only prescribed 3 Ativan on Monday 1 of which was taken proceeding MRI. Unlikely that this is causing prolonged somnolence She is on buprenorphine at baseline, toxic encephalopathy of buprenorphine overdose cannot be excluded She is guarding her airway, no respiratory distress, and arouses before falling back asleep. No indication for intubation at this time, no emergent need for Narcan at this time Ammonia normal Given that she is hemodynamically stable we will continue to observe and follow for washout of potential toxic encephalopathy. Of note she has been worked up for hepatic diseasew concern for rapidly progressive cholestasis, progressive hepatic disease could affect her metabolism leading to decreased clearance and buildup of drug/metabolites CXR clear No leukocytosis No gross electrolyte abnormalities Patient with transaminitis/elevated bilirubin for which she was pursuing outpatient work-up as above. Continue attempts to obtain records, low threshold to consult [facility] if patient not improving concern for hepatic involvement Covid negative No focal neurologic, CThead deferred on admission but would consider if not improving PG Care Time/CCT Total # of Minutes Spent Total Time Spent with Patient: Total time spent is greater than 50% in coordination of care (as documented) at patient's floor/unit and/or counseling patient: Coding Level of Care Code 61425 Initial Inpt Care Lvl 2 Diagnoses Metabolic encephalopathy G93.41 Chronic pain syndrome G89.4 Abnormal LFTs R79.89 On total parenteral nutrition (TPN) Z78.9 Jaundice R17 Pancytopenia D61.818
[2021-10-25] MEDS ORDERED: ENOXAPARIN INJ 30 MG/0.3 ML SYR ONE (15:51)
[2021-10-25] MEDS ORDERED: ENOXAPARIN INJ 30 MG/0.3 ML SYR SQ SCH (16:00)
[2021-10-25] MEDS ORDERED: TPN/PPN CONSULT PHARMACY PRN (16:31)
[2021-10-25] MEDS ORDERED: AMOXICILLIN/CLAVULANATE 875 MG TAB PO SCH (17:00)
[2021-10-25] MEDS: LACTATED RINGER'S 1,000 ML IV SCH (18:22)
--- NOTE | 2021-10-25 22:56 | Electrocardiogram Report ---
Test Reason : Blood Pressure : / mmHG Vent. Rate : 067 BPM Atrial Rate : 067 BPM P-R Int : 146 ms QRS Dur : 076 ms QT Int : 434 ms P-R-T Axes : 060 028 056 degrees QTc Int : 458 ms Poor data quality, interpretation may be adversely affected Normal sinus rhythm Septal infarct , age undetermined Abnormal ECG When compared with ECG of 01-NOV-2020 13:53, Septal infarct is now Present Confirmed by Aubrey Man ([id number]) on 10/25/2021 10:56:34 PM Referred By: REFERRED SELF Confirmed By:Aubrey Man
[2021-10-25] MEDS ORDERED: ONDANSETRON INJ 2 MG/ML 2 ML VIAL IV PRN (22:57)
[2021-10-26] MEDS ORDERED: MoRPHine SULFATE 2 MG/ML CARP IV STA (00:04)
[2021-10-26] MEDS ORDERED: MoRPHine SULFATE 2 MG/ML CARP ONE (00:09)
[2021-10-26 00:42] LABS: Appearance Urine Clear (Clear); Bacteria Urine Automated Negative (Negative); Blood Urine Negative (Negative); Cast Urine Automated 0 /lpf (0-5); Color Urine Dark Yellow; Epithelial Cell Urine Auto 0-5 /lpf (0-5); Glucose Urine UA Trace (Negative); Ketones Urine Negative (Negative); Leukocyte Esterase Urine Negative (Negative); Nitrite Urine Positive (Negative); Protein Urine Trace (Negative); RBC Urine Automated 0-4 /hpf (0-4); Specific Gravity Urine 1.022 (1.000-1.030); Urobilinogen Urine Negative (Negative)
[2021-10-26 00:46] LABS: Bilirubin Urine 1+ (Negative)
[2021-10-26 01:14] LABS: Amphetamines+Metham, Urine Neg (Neg); Barbiturates, Urine Neg (Neg); Benzodiazepine, Urine Neg (Neg); Cocaine, Urine Neg (Neg); MDMA (Ecstacy), Urine Neg (Neg); Methadone, Urine Neg (Neg); Opiate, Urine Neg (Neg); Phencyclidine, Urine Neg (Neg)
[2021-10-26] MEDS: LACTATED RINGER'S 1,000 ML IV SCH ×3 (03:10→21:16)
[2021-10-26 05:43] LABS: BUN Creatinine Ratio 49.3 (10-20); Bilirubin,Total 6.6 mg/dl (0.2-1.0); Calcium 8.7 mg/dl (8.5-10.1); Creatinine Clr Calc Pharmacy 58.1 ml/min; Est GFR (African American) 109.6 ml/min; Est GFR (Non-African American) 94.6 ml/min; Magnesium 1.8 mg/dl (1.7-2.4); Phosphorus 3.9 mg/dl (2.5-4.9); Potassium 3.2 mmol/L (3.5-5.1)
--- NOTE | 2021-10-26 07:39 | XRay Report ---
XR KUB/Abdomen 1 view CLINICAL HISTORY: NG tube placement TECHNIQUE: 1 view of the abdomen was obtained. Comparison: None available at the time of this dictation. FINDINGS: Cholecystomy clips are seen. Enteric tube side-port lies within the stomach. The osseous structures a re grossly unremarkable. Prominent gaseous distention of the stomach is seen. Otherwise the bowel hadley ears largely collapsed. A moderate amount of stool is noted within the large bowel. IMPRESSION: Satisfactory position of enteric tube. ACT 112: Negative or not required by law. Electronically signed by: Ruddy Hurtado M.D. 10/26/2021 7:38 AM
--- NOTE | 2021-10-26 07:59 | XRay Report ---
XR KUB/Abdomen 1 view CLINICAL HISTORY: vomiting TECHNIQUE: 1 view of the abdomen was obtained. Comparison: None available at the time of this dictation. FINDINGS: A gastrostomy tube is seen. The osseous structures are grossly unremarkable. Gaseous dilation of the stomach is seen. The remainder of the bowel appears decompressed. Partially visualized is a left femo ral neck fracture. Degenerative changes are seen in the spine. IMPRESSION: A PEG tube is in place. There is distention of the stomach and decompressed distal bowel. ACT 112: Negative or not required by law. Electronically signed by: Ruddy Hurtado M.D. 10/26/2021 7:58 AM
--- NOTE | 2021-10-26 08:03 | XRay Report ---
XR hip VEL 2v w pelvis CLINICAL HISTORY: left hip fracture on KUB TECHNIQUE: 2 views of the bilateral hips and single frontal view of the pelvis were obtained. Comparison: None available at the time of this dictation. FINDINGS: There is a left femoral neck fracture. This fracture demonstrates some overriding of fragments. Mild degenerative changes in bilateral hip joints. Soft tissue swelling is seen on the left. IMPRESSION: Left femoral neck fracture with associated soft tissue swelling. ACT 112: Negative or not required by law. Electronically signed by: Ruddy Hurtado M.D. 10/26/2021 8:02 AM
[2021-10-26] MEDS: POTASSIUM CHLORIDE / WTR 10 MEQ/100 ML PLCT IV SCH ×4 (09:00→14:37)
[2021-10-26] MEDS ORDERED: HYDROmorphone INJ 0.5 MG/0.5 ML SYR IV STA (09:23)
[2021-10-26] MEDS ORDERED: NALOXONE HCL 0.4 MG/1 ML VIAL/CARP IV PRN (09:25)
[2021-10-26] MEDS ORDERED: OPTIRAY 320 125ml IV ONE (10:49)
--- NOTE | 2021-10-26 11:25 | CT Scan Report ---
CT SCAN OF THE ABDOMEN AND PELVIS WITH IV CONTRAST CLINICAL HISTORY: Generalized abdominal pain. COMPARISON STUDY: Prior abdominal CT scans, most recently dated 11/01/2019. TECHNIQUE: Following the IV administration of 120 cc of Optiray 320, CT scan of the abdomen and pelv is is performed from the lung bases to the proximal femora. Images are reviewed in the axial, sagitta l, and coronal planes. IV contrast was administered without complication. A dose lowering technique w as utilized adhering to the principles of ALARA. The examination is degraded by motion artifact, as w ell as by streak artifact from the arms which could not be elevated above the abdomen or pelvis. The examination is also degraded by a paucity of intraperitoneal fat. FINDINGS: Lung bases: The tip of a central venous infusion port terminates at the cavoatrial junction. The hear t is normal in size and without pericardial effusion. There are trace pleural effusions with dependen t scarring/atelectasis. Liver: The contrast-enhanced liver is normal in size, contour, and attenuation. Focally dilated bile ducts are again seen within the left lobe of liver on image #199. The remaining intrahepatic bile catherine ts are normal in caliber. The hepatic veins and portal veins are patent. Gallbladder: Surgically absent noting clips in the gallbladder fossa. Spleen: Normal in size and attenuation. Pancreas: Unremarkable. Adrenal glands: Unremarkable. Kidneys: The contrast enhanced kidneys are normal in size and without hydronephrosis. The kidneys enh ance symmetrically. Abdominal vasculature: The abdominal aorta is normal in course and caliber noting advanced atheroscle rotic calcification. There is focal high-grade stenosis of the superior mesenteric artery seen on dash ge #79. An 8 mm splenic artery aneurysm is seen on image #64. Stomach and bowel: An enteric tube terminates in the mid stomach. A percutaneous gastrostomy tube is in place. The balloon is inflated within the stomach. There are chronically dilated loops of small brian wel in the pelvis which measure up to 4.3 cm. There are 2 apparent transition points within the small bowel suggested on image #172 and image #227. Several of the small bowel to the pelvis are mildly th ick-walled and hyperemic. The remainder of the small bowel and colon are decompressed. There is no pn eumatosis intestinalis or portal venous gas. The appendix is nonvisualized. Peritoneum: There is a small volume of abdominopelvic ascites. No intraperitoneal free air is identif ied. Lymphadenopathy: None. Pelvic viscera: A Juarez catheter is in place. There is a large amount of gas within the bladder lumen . The uterus is normal as visualized. No adnexal lesion is seen. Skeletal structures: The skeletal structures are heterogeneously osteopenic. Chronic compression defo rmities are seen at all imaged thoracolumbar levels from T11 through L5. No lytic or blastic lesions are seen. There is an acute to subacute appearing impacted fracture of the left femoral neck. Overlyi ng soft tissue edema is noted. Soft tissues: The patient is cachectic. A metallic foreign body is present within the right anterior abdominal wall on image #138. IMPRESSION: 1. Difficult examination to interpret due to significant streak and motion artifact, as well as by pa tient cachexia and a paucity of intraperitoneal fat. 2. There is an acute to subacute appearing impacted fracture of the left femoral neck. 3. There are focally dilated loops of small bowel in the pelvis with associated wall thickening and h yperemia. This has been seen on several prior abdominal CT scans, and favors a chronic partial small bowel obstruction. There are 2 apparent transition points suggested involving the small bowel in the pelvis, and an internal hernia or closed loop type obstruction would be impossible to exclude. Clinic al correlation will be essential. 3. No intraperitoneal free air is identified. There is no pneumatosis intestinalis or portal venous g as. 4. There is a small volume of abdominopelvic ascites. 5. A Juarez catheter is in place and the bladder is distended with gas. 6. Enteric and percutaneous gastrostomy tubes are in place as above. 7. Trace pleural effusions. 8. Additional findings as above. ACT 112: Negative or not required by law. Electronically signed by: Zachary Storm M.D. 10/26/2021 11:24 AM
--- NOTE | 2021-10-26 11:34 | CT Scan Report ---
CT angio chest PE protocol CT DOSE: 689.10 mGy.cm HISTORY: 56 years-old Female with PE. Acute weakness with shortness of breath TECHNIQUE: Multiple CTA images of the chest were obtained after the intravenous administration of 120 ml Optiray. Coronal and sagittal MIPS were obtained from the axial data set and were submitted for review. All measurements were obtained according to NASCET criteria. A dose lowering technique was u tilized adhering to the principles of ALARA. COMPARISON: CT abdomen and pelvis of same day and also 11/01/2019, chest CT 06/12/2018, CT thoracic spi ne 06/26/2018. FINDINGS: CTA: The heart is normal in size without pericardial effusion. Atherosclerosis of the thoracic aorta with descending tortuosity. There is a linear filling defect noted along the medial intraluminal margin of the descending thoracic aorta on image 125 series 4. The coronal images this is focally at the apex of the descending thoracic aortic kinking, image 62 of series 400. No thoracic aortic aneurysm. There is atherosclerosis with focal narrowing of the upper abdominal aorta. 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 Unremarkable pulmonary arterial tree. No filling defects a re identified to suggest thromboembolic disease. CT CHEST: 1.3 cm hypodense left with 1.0 cm isthmus thyroid nodules. There are a few nonspecific prominent medi astinal lymph nodes. Right IJ catheter distal tip terminates in the inferior SVC. A gastrostomy tube is noted with partially imaged enteric tube coursing into the stomach. Small pleural effusions. No pneumothorax or overt pulmonary edema. Mild dependent subsegmental bibasi lar opacities suggest atelectasis. 4 mm solid nodule the basal right lower lobe on image 110 likely b enign and stable dating back to at least 2018. The central airways are patent. Please refer to the CT abdomen and pelvis of same day for additional findings. Mild generalized body wall edema with cachexia. Numerous thoracolumbar compression deformities are redemonstrated. Prior T9 kyphoplasty with extruded cement material again noted within the T8-T9 disc space adjacent thoracic veins. Moderate superior endplate compression deformity at T5 without retropulsion this new from 2018 . Lower thoracic and lumbar compression deformities are favored to be chronic. Healed chronic rib fra ctures. There are new articular erosions involving the right clavicular heads on image 228. IMPRESSION: 1. No pulmonary emboli. 2. Small pleural effusions with mild bibasilar atelectasis. 3. There is a small linear intraluminal filling defect noted within the mid descending thoracic aorta , likely secondary to kinking of the vessel. This does however appear to be new from the 2018 compari son. A short segment dissection is considered unlikely. 4. Numerous chronic thoracolumbar compression deformities are redemonstrated. Moderate superior endpl ate compression deformity at T5 is age-indeterminate and new from the 2018 comparisons, however also favored to be chronic. 5. Articular erosions of the right clavicular head are also new from 2018. This may be on a degenerat sylvie basis, however should be correlated clinically to exclude septic arthropathy. 6. Additional findings as above. ACT 112: Negative or not required by law. The above report was generated using voice recognition software. It may contain grammatical, syntax o r spelling errors. Electronically signed by: Kota Ramírez M.D. 10/26/2021 11:33 AM
[2021-10-26] MEDS: HYDROmorphone INJ 0.5 MG/0.5 ML SYR IV PRN ×4 (14:14→22:13)
[2021-10-26] MEDS ORDERED: ROPIVACAINE 0.5% 5 MG/ML 30 ML VIAL ONE (14:43)
[2021-10-26] MEDS ORDERED: MIDAZOLAM HCL 1 MG/ML 2ML VIAL ONE (14:44)
--- NOTE | 2021-10-26 14:46 | Orthopedic Consultation ---
Date of Service October 26, 2021 Assessment & Plan (1) Left displaced femoral neck fracture: She was seen and examined by Dr. Lowery today. She was educated on this injury to her hip and treatment for it, specifically hemiarthroplasty once medically optimized by the hospitalist service. Procedure was explained and consent obtained. She will be npo after midnight for possible surgery on Friday 10/27. History of Present Illness Reason for Consultation: . Requesting Physician: . Attending Physician: Roman Navas MD . 56 year old patient admitted to the hospitalist service with encephalopathy versus overdose. A KUB was done yesterday that showed a left hip fracture and orthopedics was consulted. She reports that she took some ativan on Sunday 10/22 and then fell down some stairs. She injured her hip in this fall. She denies any other injuries. Denies any hip pain prior to this fall. She used a walker or cane prior to the fall. Allergies Allergy/AdvReac Type Severity Reaction Status Date / Time ibuprofen Allergy Intermediate RINGING IN Verified 10/25/21 10:09 EARS,PARTIAL LOSS HEARING ketorolac Allergy Intermediate ROARING Verified 10/25/21 10:09 SOUND IN EARS NSAIDS (Non-Steroidal Allergy Intermediate RINGING IN Verified 10/25/21 10:09 Anti-Inflamma EARS zoledronic acid Allergy Intermediate FLU LIKE Verified 10/25/21 10:09 SYMPTOMS SEVERE HEADACHE vancomycin AdvReac Severe ZACHERY Verified 10/25/21 10:09 SYNDROME alprazolam AdvReac Intermediate LOSS OF Verified 10/25/21 10:09 HEARING aspirin AdvReac Intermediate RINGING IN Verified 10/25/21 10:09 EARS,PARTIAL HEARING LOSS promethazine AdvReac Mild RESTLESS Verified 10/25/21 10:09 LEGS Home Medications Medication Instructions Recorded Confirmed Type buprenorphine HCl 8 mg sublingual 8 mg SUBLINGUAL TID PRN 11/01/20 10/25/21 History tablet amoxicillin 875 mg-potassium 1 tab PO BID 10 Days #20 tab 10/20/21 10/25/21 Rx clavulanate 125 mg tablet Past Med/Surg History Medical History Anxiety Chronic pain disorder Chronic pancreatitis Esophageal reflux Fatty liver Secondary to chronic TPN use Gastrointestinal tube present Gastrostomy tube in place Hearing deficit Hypersplenism Infected venous access port Iron deficiency anemia IRON INFUSIONS IN PAST Lumbar spinal stenosis Malnutrition Neutropenia On total parenteral nutrition (TPN) 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 Osteoporosis Peripheral neuropathy Radiation enterocolitis Severe protein-energy malnutrition Short bowel syndrome Small bowel obstruction Subclinical hypothyroidism Thoracic compression fracture Urinary incontinence Surgical History History of cholecystectomy History of colonoscopy History of esophagogastroduodenoscopy (EGD) History of kyphoplasty (~2018) History of spinal surgery THORACIC AND LUMBAR AREA TUMOR REMOVED 1991 + 1992 - RADIATION 5 WEEKS History of surgery PEG TUBE INSERTION (NOTHING RUNS THROUGH PEG TUBE/USED ONLY FOR RELEASING FOOD PRODUCTS D/T SMALL BOWEL OBSTRUCTION) "PT EATS FOR COMFORT" Port-A-Cath in place BRUNER Status post insertion of percutaneous endoscopic gastrostomy (PEG) tube Family History Mother Diabetes Hypertension Father Family hx of colon cancer Bladder cancer Sister Alcohol abuse Deep vein thrombosis Hypertension Brother Hypertension Grandmother Hypertension Aunt Hypertension Other Cancer Social History Smoking Status: Never smoker Tobacco Type: Cigarettes Age Started Using Tobacco: 12; Age Quit Using Tobacco: 21; Second Hand Exposure: No; Do You Dip or Chew Tobacco: No; Hx Alcohol Use: No Hx Substance Use: No Preferred Language: Guamanian Communication Ability: Effective Visual Impairment: No Limitations 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 Physical Exam . She is alert and oriented. NAD. She has a NG tube in. Left lower extremity: No significant swelling. Able to dorsiflex/plantar flex. NVI. Skin intact around the lateral hip. Results & Data Results & Data Laboratory Results . Diagnostic Findings .Hip and pelvis xrays show a displaced left femoral neck fracture. PG Care Time/CCT Total # of Minutes Spent Total Time Spent with Patient: Total time spent is greater than 50% in coordination of care (as documented) at patient's floor/unit and/or counseling patient: Coding Level of Care Code 22580 Inpt Consult Level 4 Diagnoses Left displaced femoral neck fracture S72.002A
--- NOTE | 2021-10-26 15:26 | Anesthesiology Consultation ---
Date of Service October 26, 2021 Assessment & Plan (1) Encounter for pre-operative examination: Chart Review Chart Review: Acceptable Risk for Surgery Consults Requested none ASA ASA3 Proposed Anesthesia Anesthesia Type: [facility] Laterality: Left Site: other (HEATHER block) Risk / Benefits Reviewed With: PT / POA / Parent / Guardian, Accepts Plan and Informed Consent Obtained History Surgery Operation Date: 10/27/21 07:00 Proposed Procedures p Left Cemented Hip Hemiarthroplasty - Slade Lowery MD Height/Weight Height: 4 ft 11 in Weight: 42.1 kg Allergies Allergy/AdvReac Type Severity Reaction Status Date / Time ibuprofen Allergy Intermediate RINGING IN Verified 10/25/21 10:09 EARS,PARTIAL LOSS HEARING ketorolac Allergy Intermediate ROARING Verified 10/25/21 10:09 SOUND IN EARS NSAIDS (Non-Steroidal Allergy Intermediate RINGING IN Verified 10/25/21 10:09 Anti-Inflamma EARS zoledronic acid Allergy Intermediate FLU LIKE Verified 10/25/21 10:09 SYMPTOMS SEVERE HEADACHE vancomycin AdvReac Severe ZACHERY Verified 10/25/21 10:09 SYNDROME alprazolam AdvReac Intermediate LOSS OF Verified 10/25/21 10:09 HEARING aspirin AdvReac Intermediate RINGING IN Verified 10/25/21 10:09 EARS,PARTIAL HEARING LOSS promethazine AdvReac Mild RESTLESS Verified 10/25/21 10:09 LEGS Medications Home Medications Medication Instructions Recorded Confirmed Last Taken buprenorphine HCl 8 mg sublingual 8 mg SUBLINGUAL TID PRN 11/01/20 10/25/21 10/24/21 tablet amoxicillin 875 mg-potassium 1 tab PO BID 10 Days #20 tab 10/20/21 10/25/21 10/24/21 clavulanate 125 mg tablet Active Medications Generic Name Dose Route Start Last Admin Trade Name Freq PRN Reason Stop Dose Admin Amoxicillin/Clavulanate Potassium 1 tab 10/25/21 17:00 10/25/21 18:31 Amoxicillin/Clavulanate 875 Mg Tab PO 11/03/21 16:59 Not Given BIDM ARJUN Enoxaparin Sodium 30 mg 10/25/21 16:00 10/25/21 16:09 Enoxaparin Inj 30 Mg/0.3 Ml Syr SQ 11/24/21 15:59 Not Given Q24H ARJUN Hydromorphone HCl 0.5 mg 10/26/21 09:25 10/26/21 14:14 Hydromorphone Inj 0.5 Mg/0.5 Ml Syr IV 11/09/21 09:24 0.5 mg Q3H PRN Administration Pain (6,7,8,9,10) Lactated Ringer's 1,000 mls @ 120 mls/hr 10/25/21 17:30 10/26/21 12:52 Lr IV 11/24/21 17:29 120 mls/hr .Q8H20M ARJUN Administration Ondansetron HCl 4 mg 10/25/21 22:57 10/25/21 23:48 Ondansetron Inj 2 Mg/Ml 2 Ml Vial IV 11/24/21 22:56 4 mg Q6H PRN Administration Nausea And Vomiting Past Medical History Medical History Anxiety Chronic pain disorder Chronic pancreatitis Esophageal reflux Fatty liver Secondary to chronic TPN use Gastrointestinal tube present Gastrostomy tube in place Hearing deficit Hypersplenism Infected venous access port Iron deficiency anemia IRON INFUSIONS IN PAST Lumbar spinal stenosis Malnutrition Neutropenia On total parenteral nutrition (TPN) 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 Osteoporosis Peripheral neuropathy Radiation enterocolitis Severe protein-energy malnutrition Short bowel syndrome Small bowel obstruction Subclinical hypothyroidism Thoracic compression fracture Urinary incontinence Exercise / Class Metabolic Activity III < 4 Walking/Shop/Light housework Past Family History Family History Mother Diabetes Hypertension Father Family hx of colon cancer Bladder cancer Sister Alcohol abuse Deep vein thrombosis Hypertension Brother Hypertension Grandmother Hypertension Aunt Hypertension Other Cancer Past Surgical History Surgical History History of cholecystectomy History of colonoscopy History of esophagogastroduodenoscopy (EGD) History of kyphoplasty (~2018) History of spinal surgery THORACIC AND LUMBAR AREA TUMOR REMOVED 1991 + 1992 - RADIATION 5 WEEKS History of surgery PEG TUBE INSERTION (NOTHING RUNS THROUGH PEG TUBE/USED ONLY FOR RELEASING FOOD PRODUCTS D/T SMALL BOWEL OBSTRUCTION) "PT EATS FOR COMFORT" Port-A-Cath in place BRUNER Status post insertion of percutaneous endoscopic gastrostomy (PEG) tube Past Anesthesia History No Hx of Anesthesia Complications and No Family Hx of Anesthesia Complications History of PONV No Hx of PONV and No Hx of Motion Sickness Social History Smoking Status: Never smoker Do You Dip or Chew Tobacco: No Hx Alcohol Use: No Hx Substance Use: No substance use type: does not use Physical Exam Vital Signs Last Vital Signs Temp 98.1 F 10/26/21 09:00 Pulse 71 10/26/21 09:00 Resp 16 10/26/21 09:00 BP 134/74 10/26/21 09:00 Pulse Ox 98 10/26/21 09:00 ENMT Mouth: + chipped teeth Thyromental Distance: > or= 3.5 Finger Breadths Mallampati Class: II Neck normal visual inspection Respiratory normal respiratory effort Auscultation: lungs clear to auscultation bilaterally Cardiovascular Rate/Rhythm: regular rate and regular rhythm Testing Laboratory Results 10/25/21 09:40 10/26/21 04:54 Urine Color Dark Yellow 10/26/21 00:24 Urine Appearance Clear (Clear) 10/26/21 00:24 Urine pH 6.0 (4.5-7.5) 10/26/21 00:24 Ur Specific [place] 1.022 (1.000-1.030) 10/26/21 00:24 Urine Protein Trace (Negative) H 10/26/21 00:24 Urine Glucose (UA) Trace (Negative) H 10/26/21 00:24 Urine Ketones Negative (Negative) 10/26/21 00:24 Urine Nitrite Positive (Negative) A 10/26/21 00:24 Ur Leukocyte Esterase Negative (Negative) 10/26/21 00:24 Urine WBC (Auto) 1-5 /hpf (0-5) 10/26/21 00:24 Urine RBC (Auto) 0-4 /hpf (0-4) 10/26/21 00:24 U Hyaline Cast (Auto) 0 /lpf (0-5) 10/26/21 00:24 U Epithel Cells (Auto) 0-5 /lpf (0-5) 10/26/21 00:24 Urine Bacteria (Auto) Negative (Negative) 10/26/21 00:24 Blood Type A Positive 10/26/21 04:55 Antibody Screen NEGATIVE 10/26/21 04:55
--- NOTE | 2021-10-26 17:08 | Hospitalist Progress Note ---
Date of Service October 26, 2021 Assessment & Plan (1) Left displaced femoral neck fracture: Plan: Unclear if traumatic vs. atraumatic - multiple vertebral fractures suggestive of osteoporosis and would qualify for intravenous biphosphonate therapy regardless of DEXA which is likely unnecessary. Will get Vit D level in AM and follow up with her PCP for osteoporosis treatment. Consult orthopedics - recommend further workup today including CT C/A/P and blood cultures for acute pathology. Given lack of current symptoms I think waiting 24 rather than a full 48 hours if sufficient. Blood cultures taken due to history of fungemia and bacteremia when patient relatively asymptomatic likely secondary to TPN. Given no confirmed bacteremia and taken for precaution and recent infective symptoms only she can carry on her TPN today. For severe pain will hold her buprenorphine and utilize dilaudid - will consult anesthesiology for a fascia iliacus block pre-operatively to avoid overdosing dilaudid given she arrived with suspected overdose. I do not think she will to lerate traction but will defer this to orthopedics. Her revised cardiac risk index is 0 - 3.9% 30-day risk of [place], or cardiac arrest. Given her co-morbidities, weight and sever protein calorie malnutrition and LFTs I suspect this is a underestimate. If blood cultures negative at 24 hours no further medical workup required prior to surgery. (2) Metabolic encephalopathy: Plan: Suspect from Ativan per patient +/- buprenorphine as she only had three pills of Ativan per PDMP Appears to be resolving. CT head not taken on admission however do not feel this is required at this time given symptoms resolved and no focal signs of CVA. (3) Jaundice: Plan: MRCP reviewed from [facility] on Monday. No biliary obstruction seen s/p cholecystectomy. Severe dilatation of second segment of duodenum with transitional point in third segment suspicious for superior mesenteric artery syndrome. Recommended CT A/P with oral and IV contrast for further workup of this. CT here with no mention of SMA sydrome likely as her SBO in the interim has been better treated with NG tube placement on suction. Given no biliary dilatation and chronic elevation in bilirubin and LFTs - no pre-op workup is required at this stage. ?secondary to partial SBO with dilation of duodenum in this area vs. lipids from TPN Continue to trend CMP (4) Sinusitis: Plan: Prior diagnosis of this. No significant current symptoms. Will switch her Augmentin to Unasyn given she is currently not able to tolerate PO meds. (5) Abnormal LFTs: Plan: -See above. (6) Chest pain: Plan: Mild however given complexity of patient and prior missed hip fracture given difficulty in patient exam CT for PE done which was subsequently negative. Ongoing since Monday and troponin negative on admission. No need to repeat this. Suspect MSK as reproducible on palpation. (7) Chronic pain syndrome: Plan: Utilizing dilaudid instead of her buprenorphine. May need pain management depending on post operative course. (8) Pancytopenia: Plan: -chronic although platelets not usually this low. Concerning for infective etiology -follow up blood and urine cultures -Unasyn to cover sinusitis (9) On total parenteral nutrition (TPN): Plan: -Consult placed to nutrition for management. -Per hepatology note from 10/05/2021, recommend keeping lipid infusions to a minimum and using SMOF whenever possible. -OK to have her TPN today - K Cl 40 meq IV given to replace K 3.2 (10) Severe protein-energy malnutrition: Plan: Chronic TPN as above (11) Gastrointestinal tube present: Plan: Can likely be used for SBO moving forward but for now since NG tube place and appears to be working well will continue with this and leave PEG to drain to gravity (12) Small bowel obstruction: Plan: Chronic partial. Switch meds to IV. NG tube to low intermittent suction. Plan: VTE Prophylaxis - held pre-operatively Diet - clear liquids requested by patient despite chronic SBO, NPO after midnight Disposition - continue admission on med/tele Admission and Anticipated Discharge Date Admission Date: October 26, 2021 Subjective More awake and alert today. Having 9/10 pain in her left leg. Overnight diagnosed with hip fracture after taking KUB XR for nausea. MRCP result obtained from [facility] records showing no acute process but concerning findings for SMA syndrome and recommended CT with IV and oral contrast for further workup. Unable to perform oral contrast given significant NG tube back up at this time. She had some abdominal pain initially although significant improvement after NG tube placed on low intermittent suction. Large amount of output from NG tube placed - she has chronic small bowel obstruction - treated with PEG tube which drains to gravity and the patient occasionally has to press on her abdomen. Significant history of fungemia without sepsis and recent infective symptoms of sinusitis and urinary symptoms when she say her PCP on 10/20. She reports the dysuria she had on that visit subsequently improved over a day. Sinus pain improving - she was taking Augmentin for this. She told previous providers she fell on Monday and thought she'd twisted her ankle following this although she tells me her fracture was non-traumatic while she was just walking she suddenly felt she was unable to move her left ankle properly. Review of Systems Review of Systems: All systems reviewed & are unremarkable except as noted in Subjective Physical Exam Constitutional: + acute distress (pain), + cachectic and + frail appearing Eyes: sclerae not anicteric and normal pupil size ENMT: Mouth: + dry oral mucous membranes Neck: trachea midline, no thyromegaly Respiratory: normal respiratory effort, lungs clear to auscultation Cardiovascular: RRR, no murmur, no edema Gastrointestinal (Abdomen): Inspection/Auscultation: + hypoactive bowel sounds; abdomen not distended Percussion/Palpation: + abdomen tender (epigastric) and abdomen soft; no guarding and abdomen not rigid Musculoskeletal: Painful left groin going down her whole leg on any movement of both legs. PT/DP pulses intact and sensation intact. Severe kyphosis of back with pressure ulcer without cellulitis over her thoracic spine Skin: + ulcer (Stage II pressure ulcer over thoracic spinous process) and + jaundice Neurologic: moves all extremities and awake; not confused Motor/Sensory: no tremor Psychiatric: A+Ox3, euthymic affect Results & Data Results & Data ([facility]) Vital Signs (Past 12 Hours) Vital Signs Temp Pulse Resp BP Pulse Ox 10/26/21 15:15 36.5 C 69 18 127/69 100 10/26/21 09:00 36.7 C 71 16 134/74 98 PG Care Time/CCT Total # of Minutes Spent Total Time Spent with Patient: Total time spent is greater than 50% in coordination of care (as documented) at patient's floor/unit and/or counseling patient: Coding Level of Care Code 95565 Subseq Hosp Care Lvl 3 Diagnoses Metabolic encephalopathy G93.41 Jaundice R17 Abnormal LFTs R79.89 Chronic pain syndrome G89.4 On total parenteral nutrition (TPN) Z78.9 Pancytopenia D61.818 Left displaced femoral neck fracture S72.002A Sinusitis J32.9 Chest pain R07.9 Gastrointestinal tube present Z93.1 Small bowel obstruction K56.609 Severe protein-energy malnutrition E43
--- NOTE | 2021-10-26 17:19 | Anesthesiology Progress Note ---
Date of Service October 26, 2021 Anesthesia Post Procedure Vital Signs Vital Signs: Temp Pulse Resp BP Pulse Ox 10/26/21 15:15 97.7 F 69 18 127/69 100 10/26/21 09:00 98.1 F 71 16 134/74 98 10/26/21 05:01 64 16 141/75 H 97 10/25/21 21:09 88 12 148/86 H 98 Pain Intensity Hip: Pain Intensity: 6 Transfer of Care Handoff Completed per policy Notes Mental Status: alert / awake / arousable and participated in evaluation Patient Amnestic to Procedure: Yes Nausea / Vomiting: adequately controlled Pain: adequately controlled Airway Patency, RR, SpO2: stable & adequate BP & HR: stable & adequate Hydration State: stable & adequate Anesthetic Complications: no major complications apparent and Pt Satisfied with anesthetic care
--- NOTE | 2021-10-26 17:26 | Anesthesiology Progress Note ---
Date of Service October 26, 2021 Assessment & Plan Admission and Anticipated Discharge Date Admission Date: October 26, 2021 Subjective I was consulted by the hospitalist for pain management. The patient has a left hip fracture, but she is not scheduled for surgery until tomorrow. I obtained consent from the patient for a left pericapsular nerve group block. A timeout was completed. The patient was monitored throughout the nerve block. The patient was administered supplemental O2 and the patient was given midazolam 2mg IV. The block was performed under sterile technique. The site was prepped with chlo raprep. A 22G ultravue needle was used with U/S guidance. 10mL of 0.5% ropivacaine was injected. The syringe was aspirated negative for heme, and there was no signs of local anesthetic toxicity. The patient tolerated the procedure. The patient was monitored for 30 minutes before being transferred back to her room. Physical Exam Vital Signs: Last Vital Signs Temp 97.7 F 10/26/21 15:15 Pulse 69 10/26/21 15:15 Resp 18 10/26/21 15:15 BP 127/69 10/26/21 15:15 Pulse Ox 100 10/26/21 15:15 Results & Data ([facility]) Medications Administered Amoxicillin/Clavulanate Potassium (Amoxicillin/Clavulanate 875 Mg Tab) 1 tab PO BIDM [facility] Stop: 11/03/21 16:59 Last Admin: 10/25/21 18:31 Dose: Not Given Documented by: [id number] Enoxaparin Sodium (Enoxaparin Inj 30 Mg/0.3 Ml Syr) 30 mg SQ Q24H [facility] Stop: 11/24/21 15:59 Last Admin: 10/25/21 16:09 Dose: Not Given Documented by: [id number] Hydromorphone HCl (Hydromorphone Inj 0.5 Mg/0.5 Ml Syr) 0.5 mg IV Q3H PRN PRN Reason: Pain (6,7,8,9,10) Stop: 11/09/21 09:24 Last Admin: 10/26/21 14:14 Dose: 0.5 mg Documented by: [id number] Lactated Ringer's (Lr) 1,000 mls @ 120 mls/hr IV .Q8H20M [facility] Stop: 11/24/21 17:29 Last Admin: 10/26/21 12:52 Dose: 120 mls/hr Documented by: [id number] Infusion: 10/26/21 11:39 Dose: 0 mls/hr Documented by: [id number] Admin: 10/26/21 03:10 Dose: 120 mls/hr Documented by: [id number] Infusion: 10/26/21 02:45 Dose: 0 mls/hr Documented by: [id number] Admin: 10/25/21 18:22 Dose: 120 mls/hr Documented by: [id number] Ondansetron HCl (Ondansetron Inj 2 Mg/Ml 2 Ml Vial) 4 mg IV Q6H PRN PRN Reason: Nausea And Vomiting Stop: 11/24/21 22:56 Last Admin: 10/25/21 23:48 Dose: 4 mg Documented by: [id number]
--- NOTE | 2021-10-26 19:12 | Anesthesiology Consultation ---
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 Surgery Operation Date: 10/26/21 07:00 Proposed Procedures p Selective Nerve Root Injection - Gerard Pepper DO Operation Date: 10/27/21 07:00 Proposed Procedures p Left Cemented Hip Hemiarthroplasty - Slade Lowery MD Height/Weight Height: 4 ft 11 in Weight: 42.1 kg Allergies Allergy/AdvReac Type Severity Reaction Status Date / Time ibuprofen Allergy Intermediate RINGING IN Verified 10/25/21 10:09 EARS,PARTIAL LOSS HEARING ketorolac Allergy Intermediate ROARING Verified 10/25/21 10:09 SOUND IN EARS NSAIDS (Non-Steroidal Allergy Intermediate RINGING IN Verified 10/25/21 10:09 Anti-Inflamma EARS zoledronic acid Allergy Intermediate FLU LIKE Verified 10/25/21 10:09 SYMPTOMS SEVERE HEADACHE vancomycin AdvReac Severe ZACHERY Verified 10/25/21 10:09 SYNDROME alprazolam AdvReac Intermediate LOSS OF Verified 10/25/21 10:09 HEARING aspirin AdvReac Intermediate RINGING IN Verified 10/25/21 10:09 EARS,PARTIAL HEARING LOSS promethazine AdvReac Mild RESTLESS Verified 10/25/21 10:09 LEGS Medications Home Medications Medication Instructions Recorded Confirmed Last Taken buprenorphine HCl 8 mg sublingual 8 mg SUBLINGUAL TID PRN 11/01/20 10/25/21 10/24/21 tablet amoxicillin 875 mg-potassium 1 tab PO BID 10 Days #20 tab 10/20/21 10/25/21 10/24/21 clavulanate 125 mg tablet Active Medications Generic Name Dose Route Start Last Admin Trade Name Sammi PRN Reason Stop Dose Admin Amoxicillin/Clavulanate Potassium 1 tab 10/25/21 17:00 10/25/21 18:31 Amoxicillin/Clavulanate 875 Mg Tab PO 11/03/21 16:59 Not Given BIDM ARJUN Enoxaparin Sodium 30 mg 10/25/21 16:00 10/25/21 16:09 Enoxaparin Inj 30 Mg/0.3 Ml Syr SQ 11/24/21 15:59 Not Given Q24H ARJUN Hydromorphone HCl 0.5 mg 10/26/21 09:25 10/26/21 17:21 Hydromorphone Inj 0.5 Mg/0.5 Ml Syr IV 11/09/21 09:24 0.5 mg Q3H PRN Administration Pain (6,7,8,9,10) Lactated Ringer's 1,000 mls @ 120 mls/hr 10/25/21 17:30 10/26/21 12:52 Lr IV 11/24/21 17:29 120 mls/hr .Q8H20M ARJUN Administration Ondansetron HCl 4 mg 10/25/21 22:57 10/25/21 23:48 Ondansetron Inj 2 Mg/Ml 2 Ml Vial IV 11/24/21 22:56 4 mg Q6H PRN Administration Nausea And Vomiting Past Medical History Medical History Anxiety Chronic pain disorder Chronic pancreatitis Esophageal reflux Fatty liver Secondary to chronic TPN use Gastrointestinal tube present Gastrostomy tube in place Hearing deficit Hypersplenism Infected venous access port Iron deficiency anemia IRON INFUSIONS IN PAST Lumbar spinal stenosis Malnutrition Neutropenia On total parenteral nutrition (TPN) 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 Osteoporosis Peripheral neuropathy Radiation enterocolitis Severe protein-energy malnutrition Short bowel syndrome Small bowel obstruction Subclinical hypothyroidism Thoracic compression fracture Urinary incontinence Past Family History Family History Mother Diabetes Hypertension Father Family hx of colon cancer Bladder cancer Sister Alcohol abuse Deep vein thrombosis Hypertension Brother Hypertension Grandmother Hypertension Aunt Hypertension Other Cancer Past Surgical History Surgical History History of cholecystectomy History of colonoscopy History of esophagogastroduodenoscopy (EGD) History of kyphoplasty (~2017) History of spinal surgery THORACIC AND LUMBAR AREA TUMOR REMOVED 1991 + 1992 - RADIATION 5 WEEKS History of surgery PEG TUBE INSERTION (NOTHING RUNS THROUGH PEG TUBE/USED ONLY FOR RELEASING FOOD PRODUCTS D/T SMALL BOWEL OBSTRUCTION) "PT EATS FOR COMFORT" Port-A-Cath in place BRUNER Status post insertion of percutaneous endoscopic gastrostomy (PEG) tube Social History Smoking Status: Never smoker Do You Dip or Chew Tobacco: No Hx Alcohol Use: No Hx Substance Use: No substance use type: does not use Physical Exam Vital Signs Last Vital Signs Temp 97.7 F 10/26/21 15:15 Pulse 70 02/15/22 16:00 Resp 18 10/26/21 15:15 BP 127/69 10/26/21 15:15 Pulse Ox 100 10/26/21 15:15 Testing Laboratory Results 10/25/21 09:40 10/26/21 04:54 Urine Color Dark Yellow 10/26/21 00:24 Urine Appearance Clear (Clear) 10/26/21 00:24 Urine pH 6.0 (4.5-7.5) 10/26/21 00:24 Ur Specific [place] 1.022 (1.000-1.030) 10/26/21 00:24 Urine Protein Trace (Negative) H 10/26/21 00:24 Urine Glucose (UA) Trace (Negative) H 10/26/21 00:24 Urine Ketones Negative (Negative) 10/26/21 00:24 Urine Nitrite Positive (Negative) A 10/26/21 00:24 Ur Leukocyte Esterase Negative (Negative) 10/26/21 00:24 Urine WBC (Auto) 1-5 /hpf (0-5) 10/26/21 00:24 Urine RBC (Auto) 0-4 /hpf (0-4) 10/26/21 00:24 U Hyaline Cast (Auto) 0 /lpf (0-5) 10/26/21 00:24 U Epithel Cells (Auto) 0-5 /lpf (0-5) 10/26/21 00:24 Urine Bacteria (Auto) Negative (Negative) 10/26/21 00:24 Blood Type A Positive 10/26/21 04:55 Antibody Screen NEGATIVE 10/26/21 04:55 Laboratory Tests 10/25/21 12:43 SARS-CoV-2, RNA, NAAT NEGATIVE Electrocardiogram Date: 10/25/21 Poor data quality, interpretation may be adversely affected Normal sinus rhythm, rate 67 bpm Septal infarct , age undetermined Abnormal ECG When compared with ECG of 01-NOV-2020 13:53, Septal infarct is now Present Confirmed by Aubrey Man ([id number]) on 10/25/2021 10:56:34 PM Chest X-Ray Date: 10/25/21 IMPRESSION: 1. There is a decreased inspiratory effort with otherwise no acute chest disease. Echocardiogram Date: 10/10/18 LV systolic function is normal Grade 1 diastolic dysfunction RVSP is normal IVC is mildly dilated
[2021-10-26] MEDS ORDERED: DEXTROSE 10% 1,000 ML IV PRN (21:00)
[2021-10-26] MEDS: [UNRECOGNIZED DRUG - OTHER] IV SCH (21:33)
[2021-10-26] MEDS: CENTRAL TPN IV SCH (21:33)
[2021-10-26] MEDS: AMINO ACID 8% IV SCH (21:33)
[2021-10-26] MEDS ORDERED: CALCIUM CARBONATE 500 MG CHEWABLE TAB PO PRN (22:02)
[2021-10-26] MEDS: FAMOTIDINE 20 MG TAB PO SCH (22:29)
[2021-10-27] MEDS: HYDROmorphone INJ 0.5 MG/0.5 ML SYR IV PRN ×5 (01:23→21:16)
[2021-10-27] MEDS: AMPICILLIN/SULBACTAM SOD 3,000 MG in 0.9 % SODIUM CHLORIDE 100 ML IV SCH ×4 (06:43→23:24)
[2021-10-27 07:31] LABS: Hematocrit (blood only) 32.7 % (37-47); Hemoglobin 10.6 g/dL (12.0-16.0); Red Blood Count 3.41 M/uL (4.2-5.4); White Blood Count 3.98 K/uL (4.8-10.8)
[2021-10-27 07:32] LABS: Mean Corpuscular Hemoglobin 31.1 pg (25-34); Mean Corpuscular Hgb Conc 32.4 g/dL (32-36); Mean Corpuscular Volume 95.9 fL (80-100); Mean Platelet Volume 12.3 fL (7.4-10.4); Platelet Count 95 K/uL (130-400); RDW Coefficient of Variation 15.9 % (11.5-14.5)
[2021-10-27 07:46] LABS: INR 1.2 (0.9-1.1); Partial Thromboplastin Ratio 1.1; Partial Thromboplastin Time 29.3 Seconds (21.0-31.0); Prothrombin Time 11.8 Seconds (9.0-12.0)
[2021-10-27 07:56] LABS: Eosinophils # (auto) 0.01 K/uL (0-0.5); Eosinophils % (auto) 0.3 %; Lymphocytes # (auto) 0.39 K/uL (1.2-3.4); Lymphocytes % (auto) 9.8 %; Monocytes # (auto) 0.19 K/uL (0.11-0.59); Monocytes % (auto) 4.8 %; Neutrophils # (auto) 3.39 K/uL (1.4-6.5); Neutrophils % (auto) 85.1 %; RBC Morphology Unremarkable
[2021-10-27 07:57] LABS: Albumin Globulin Ratio 0.8 (0.9-2); Albumin Level 2.6 gm/dl (3.4-5.0); BUN Creatinine Ratio 59.7 (10-20); Bilirubin,Total 4.8 mg/dl (0.2-1.0); Calcium 8.2 mg/dl (8.5-10.1); Creatinine Clr Calc Pharmacy 62.4 ml/min; Est GFR (Non-African American) 100.1 ml/min; Globulin 3.3 gm/dl (2.5-4.0); Magnesium 1.9 mg/dl (1.7-2.4); Phosphorus 1.3 mg/dl (2.5-4.9); Total Protein 5.9 gm/dl (6.0-8.3)
[2021-10-27] MEDS: FAMOTIDINE 20 MG TAB PO SCH ×2 (08:03→20:27)
[2021-10-27] MEDS ORDERED: POTASSIUM PHOS 3 MMOL/1 ML INFUSION IV STA (08:26)
[2021-10-27] MEDS: AMINO ACID 8% IV SCH (08:43)
[2021-10-27] MEDS: [UNRECOGNIZED DRUG - REMARK] SCH (08:43)
[2021-10-27] MEDS: [UNRECOGNIZED DRUG - OTHER] IV SCH (08:43)
[2021-10-27] MEDS: CENTRAL TPN IV SCH (08:43)
[2021-10-27] MEDS ORDERED: POTASSIUM PHOSPHATE 21 MMOL in SODIUM CHLORIDE 0.9% 500 ML IV ONE (09:00)
[2021-10-27] MEDS: POTASSIUM CHLORIDE / WTR 20 MEQ/100 ML PLCT IV SCH ×4 (09:05→22:53)
[2021-10-27] MEDS ORDERED: MIDAZOLAM HCL 1 MG/ML 2ML VIAL ONE (12:56)
[2021-10-27] MEDS ORDERED: fentaNYL citrate 100 MCG/2 ML VIAL ONE (12:56)
[2021-10-27] MEDS ORDERED: SUCCINYLCHOLINE CHLORIDE 20 MG/ML 10 ML VIAL IV ONE (12:59)
[2021-10-27] MEDS ORDERED: PROPOFOL IV EMULSION 10 MG/ML 20 ML VIAL IV ONE (12:59)
[2021-10-27] MEDS ORDERED: LARYING-O-JET KIT (LTA) ONE (12:59)
[2021-10-27] MEDS ORDERED: LIDOCAINE 2% 2 ML VIAL/AMP(20MG/ML) INFIL ONE (12:59)
[2021-10-27] MEDS ORDERED: PHENYLEPHRINE HCL 10 MG/ML VIAL ONE (12:59)
[2021-10-27] MEDS ORDERED: ePHEDrine sulfate 50 MG/ML SYR ONE (12:59)
[2021-10-27] MEDS ORDERED: ONDANSETRON INJ 2 MG/ML 2 ML VIAL ONE (12:59)
[2021-10-27] MEDS ORDERED: ROPIVACAINE 0.5% 5 MG/ML 30 ML VIAL ONE (13:11)
--- NOTE | 2021-10-27 13:22 | Pharmacy Report ---
Pharmacy PN Initial Consult - Date of Service October 27, 2021 - Scope Pharmacy has been consulted to manage parenteral nutrition orders and order appropriate labs. As part of the Nutrition Support Team guidelines, pharmacy will work in conjunction with dietary when determining the patients caloric needs. - Subjective The patient is a 56 year old F admitted on 10/26/21 08:56 for UNINTENTIONAL OVERDOSE. Patient is to receive parenteral nutrition for SBO, severe protein energy malnutrition, chronic TPN use at home. Pertinent PMH: Fatty liver disease likely secondary to chronic TPN use, lipids limited to once a week at home. Jaundice in 09/2021 Currently with elevated LFTs. - Objective Height: 4 ft 11 in Weight: 39.5 kg Diet: Clear Liquid Vascular Access:: Central line Intake & Output (Last 24Hrs): Intake & Output 10/25/21 10/26/21 10/27/21 10/28/21 06:59 06:59 06:59 06:59 Intake Total 1000 / 1000 3155.667 / 3155.667 208 / 208 Output Total 4950 / 4950 Balance 1000 / 1000 -1794.333 / -1794.333 208 / 208 Weight 42.1 kg 39.5 kg Laboratory Data (Last 24 Hrs):: 10/27/21 06:36 Sodium 139 Potassium 3.0 L Chloride 102 Carbon Dioxide 33 H BUN 37 H Creatinine 0.62 Glucose 171 H Calcium 8.2 L Phosphorus 1.3 L* D Magnesium 1.9 Total Bilirubin 4.8 H AST 89 H ALT 98 H Alkaline Phosphatase 215 H Albumin 2.6 L Nutrition Assessment:: Please refer to the Notes section of the EMR for the most recent resource recovery engineer note. - Assessment Patient with history of fatty liver disease and hospitalist advised limit lipid intake, dietitian recommended lipids twice weekly and duration of 12 hrs. TPN started in-house yesterday at 21:00 without lipids. 10/27: Phos level dropped to 1.3 and K level = 3.0. KPhos replacement 21 mmol started this AM x 1 bag and in addition KCL riders 40 meq IV also given today. Per Dr. Navas, hold TPN today until electrolytes are fixed. - Plan For day 1 (10/26/21), of PN administration, the following were ordered: Macronutrients Amino acids 77 grams/day Dextrose 134.5 grams/day Lipids 0 grams/day Total volume = 960 ml Micronutrients Combined electrolytes 0 mL - contains 35 mEq Na, 20 meq K, 4.5 mEq Ca, 5 mEq Mg, 35 mEq Cl, 29.5 mEq acetate per 20 mL Sodium phosphate 0 MMol Sodium chloride 0 mEq Sodium acetate 0 mEq Potassium phosphate 0 mMol Potassium chloride 0 mEq Potassium acetate 40 mEq Magnesium sulfate 8.12 mEq Calcium gluconate 0 mEq Multivitamins 10 mL Trace Elements 1 mL Additional additives: Total volume 993 mL (with additives) was infused over 12 hrs (21:00 last night to 9 AM today) provided 765 kcal/day Labs to be ordered per PN order protocol Pharmacy will follow and adjust parenteral nutrition orders on a daily basis. Thank you.
[2021-10-27] MEDS ORDERED: EPINEPHrine INJ 1 MG/ML AMP ONE (13:42)
[2021-10-27] MEDS ORDERED: BUPIVACAINE 0.5 % 5 MG/1 ML MPF 30ML VIAL ONE (13:42)
--- NOTE | 2021-10-27 13:51 | History & Physical Bridge Note ---
Date of Service October 27, 2021 History & Physical Bridge Note I have examined the patient, reviewed the History & Physical and in the interval since the performance of the History & Physical I have noted the following changes of clinical significance: no changes noted
[2021-10-27] MEDS ORDERED: ALBUMIN HUMAN 5% 12.5 GM/250 ML VIAL IV ONE (14:57)
--- NOTE | 2021-10-27 15:33 | Operative Report ---
PG Post Operative Report Pre & Post Diagnosis Operation Date: 10/26/21 07:00 <No data on this case meets the specified criteria> Operation Date: 10/27/21 07:00 Pre-Op Diagnosis: Left displaced femoral neck fracture Post-Op Diagnosis: Left displaced femoral neck fracture I identified the patient and participated in the time-out.: Yes Procedure Operation Date: 10/26/21 07:00 Actual Procedures p Selective Nerve Root Injection - Gerard Pepper DO Operation Date: 10/27/21 07:00 Actual Procedures p Left Cemented Hip Hemiarthroplasty(Left) - Slade Lowery MD Surgeon Slade Lowery MD Analytics Specialist Eleuterio Osullivan PA-C Estimated Blood Loss 100 Findings Consistent with Post-Op Diagnosis Specimens Left femoral head sent for pathology Anesthesia Type General Complications none Disposition Accompanied Patient To Recovery: Yes Indications Patient is a 56-year-old female with multiple medical comorbidities who sustained a fall several days ago. As she did have acute onset of pain. She got brought to emergency room for various other reasons and was found to have a left displaced femoral neck fracture. Patient was indicated for surgical management. As she was medically optimized. Description of Procedure Operative implants consist of #1 Crystal size 11 LD/fracture femoral stem with a 9 centralizer. 2. +0/28 mm articular ball. 3. Small cement restrictor. 4. 46 mm bipolar shell and liner. The patient was taken to the operating, identified, placed on the operating table supine position protectors were properly padded. IV antibiotics 5 by anesthesia team. General anesthetic was employed by anesthesia team. The patient was then placed in the right lateral decubitus position. An axillary roll was placed. The left hip and leg were then scrubbed with Hibiclens, prepped with ChloraPrep and draped in the usual sterile fashion. A posterior lateral approach to the left hip was then performed to a curvilinear incision centered over the greater trochanter. Sharp dissection was carried through subcutaneous this down to level the IT band gluteal fascia the IT band gluteal fascia/longitudinally in line with skin incision. The piriformis and external rotators were tagged and taken off the posterior aspect hip joint capsule. Great care was taken throughout the procedure protect the sciatic nerve at all times. Posterior capsulotomy was then performed allowing for the flaps to be repaired at the end of the case. Hip was internally rotated. Femoral neck osteotomy cut was made at the base of the fracture which was about a centimeter above the lateral lesser trochanter. The femur was retracted anteriorly. The femoral head was removed. We sized this to a size 46 and trialed the acetabulum to 46 fit nicely. Attention drawn back to the femur. The proximal femur was entered with a cookie-cutter followed by canal finder lateralizing reamer. I then broached begin the size 9 and progressing to 11. Got good fit at 11. We trialed the hip and the 0 ball seem to fit most appropriately. Recreated soft tissue tension and was fully stable in full extension and external rotation along with flexion and internal rotation. We elect to place these implants. All trial implants were removed. A cement restrictor was placed distally. A double batch [place] G cement was mixed and injected in the canal. A size 11 femoral stem with centralizer was then placed and held until the cement hardened. Final cement check was then performed. A +0/28 mm articular ball and a 46 mm bipolar shell and liner were placed. Hip was located once again found to be stable. Attention drawn toward closing. The wounds irrigated scope soft with pulsatile lavage solution. I did inject locally with about 40 cc of half percent Marcaine with epinephrine. The posterior capsule was then repaired with #2 Tycron suture. A external rotators were repaired to the posterior aspect of hip abductors with #2 Tycron suture. The IT band gluteal fascia then closed in 1 PDS suture running fashion for subcutaneous tissues then closed in a single layer with a 2-0 Vicryl suture. The skin was closed skin rome. Leg was then cleaned and dried a sterile dressing was Xeroform, 4 x 4's, foam tape were applied. The patient was then brought out of general incision transferred back to the recovery room in stable condition. Patient tolerated procedure well and there were no complications. Eleuterio Osullivan, my physician sales assistant entertainment and media, was present for the entire procedure. His assistance was essential and required for appropriate patient positioning, prepping and draping, surgical exposure, performing the technical details of the operation, placement the implants, closure of the wound, and placement of the sterile bandage. I attest to the content of the Intraoperative Record and any orders documented therein. Any exceptions are noted below.
--- NOTE | 2021-10-27 16:34 | XRay Report ---
XR hip LT min 2V CLINICAL HISTORY: Post-op TECHNIQUE: 2 views of the left hip and single frontal view of the pelvis were obtained. Comparison: None available at the time of this dictation. FINDINGS: Patient is status post total knee arthroplasty with expected postsurgical changes including soft tiss ue swelling, subcutaneous emphysema, and surgical staple placement. No periarticular lucency or hardw are fracture is seen. The alignment is anatomic. Joint spaces are well-preserved. No soft tissue abn ormality is seen. IMPRESSION: Expected postoperative appearance status post placement of total hip arthroplasty. ACT 112: Negative or not required by law. Electronically signed by: Ruddy Hurtado M.D. 10/27/2021 4:33 PM
[2021-10-27] MEDS ORDERED: METOCLOPRAMIDE HCL INJ 5 MG/ML 2 ML VIAL IV PRN (17:37)
[2021-10-27] MEDS ORDERED: ALUMINUM/MAGNESIUM SUSP 30 ML UDC PO PRN (17:37)
[2021-10-27] MEDS ORDERED: NALOXONE HCL 0.4 MG/1 ML VIAL/CARP IV PRN (17:37)
[2021-10-27] MEDS ORDERED: SODIUM CHLORIDE 0.9% 1000ML 1,000 ML IV SCH (17:37)
[2021-10-27] MEDS ORDERED: ONDANSETRON INJ 2 MG/ML 2 ML VIAL IV PRN (17:37)
[2021-10-27] MEDS ORDERED: bisacodyL 10 MG SUPP PR PRN (17:37)
[2021-10-27] MEDS ORDERED: MAGNESIUM HYDROXIDE SUSP 30 ML UDC PO PRN (17:37)
[2021-10-27] MEDS ORDERED: HYDROmorphone INJ 0.5 MG/0.5 ML SYR IV PRN (17:37)
--- NOTE | 2021-10-27 17:37 | Anesthesiology Progress Note ---
Date of Service October 27, 2021 Anesthesia Post Procedure Vital Signs Vital Signs: Temp Pulse Pulse Pulse Resp BP Pulse Ox 10/27/21 17:25 36.4 C L 74 16 131/75 97 10/27/21 17:10 76 20 122/64 97 10/27/21 17:00 74 18 127/66 97 10/27/21 16:50 75 16 121/65 97 10/27/21 16:40 75 22 118/64 97 10/27/21 16:30 36.5 C 77 19 122/64 97 10/27/21 16:20 78 13 126/71 98 10/27/21 16:10 88 17 119/66 100 10/27/21 16:00 73 21 128/71 100 10/27/21 15:50 78 16 134/74 100 10/27/21 15:42 36.3 C L 81 16 142/77 H 100 10/27/21 13:07 37.4 C 84 20 116/88 95 10/27/21 11:13 37.1 C 81 16 138/74 94 10/27/21 08:00 63 10/27/21 07:43 37.0 C 80 18 121/63 95 10/27/21 04:46 37 C 91 H 20 119/54 L 95 10/26/21 23:00 36.8 C 98 H 18 155/63 H 91 10/26/21 22:19 61 Pain Intensity Hip: Pain Intensity: 9 Transfer of Care Handoff Completed per policy Notes Mental Status: alert / awake / arousable Patient Amnestic to Procedure: Yes Nausea / Vomiting: adequately controlled Pain: adequately controlled Airway Patency, RR, SpO2: stable & adequate BP & HR: stable & adequate Hydration State: stable & adequate Anesthetic Complications: no major complications apparent
[2021-10-27] MEDS: LACTATED RINGER'S 1,000 ML IV SCH (17:42)
[2021-10-27] MEDS: ASCORBIC ACID 500 MG TAB PO SCH (18:08)
[2021-10-27 18:28] LABS: Phosphorus 3.1 mg/dl (2.5-4.9); Potassium 3.3 mmol/L (3.5-5.1)
--- NOTE | 2021-10-27 19:34 | Hospitalist Progress Note ---
Date of Service October 27, 2021 Assessment & Plan (1) Left displaced femoral neck fracture: Plan: Unclear if traumatic vs. atraumatic - multiple vertebral fractures suggestive of osteoporosis and would qualify for intravenous biphosphonate therapy regardless of DEXA which is likely unnecessary. Will get Vit D level in AM and follow up with her PCP for osteoporosis treatment. Blood cultures negative after 24 hours. We will continue on Unasyn for sinusitis. Hold TPN for today. Okay to go ahead with surgery today as discussed with orthopedics. Receiving potassium replacement preoperatively for a potassium of 3.0. (2) Metabolic encephalopathy: Plan: Suspect from Ativan per patient +/- buprenorphine as she only had three pills of Ativan per PDMP Resolved. (3) Jaundice: Plan: MRCP reviewed [facility] on Monday. No biliary obstruction seen s/p cholecystectomy. Severe dilatation of second segment of duodenum with tr ansitional point in third segment suspicious for superior mesenteric artery syndrome. Recommended CT A/P with oral and IV contrast for further workup of this. CT here with no mention of SMA sydrome likely as her SBO in the interim has been better treated with NG tube placement on suction. Given no biliary dilatation and chronic elevation in bilirubin and LFTs - no pre-op workup is required at this stage. ?secondary to partial SBO with dilation of duodenum in this area vs. lipids from TPN Continue to trend CMP (4) Sinusitis: Plan: Prior diagnosis of this. No significant current symptoms. Will switch her Augmentin to Unasyn given she is currently not able to tolerate PO meds. (5) Abnormal LFTs: Plan: -See above. (6) Chest pain: Plan: Mild however given complexity of patient and prior missed hip fracture given difficulty in patient exam CT for PE done which was subsequently negative. Ongoing since Monday and troponin negative on admission. No need to repeat this. Suspect MSK as reproducible on palpation. (7) Chronic pain syndrome: Plan: Utilizing dilaudid instead of her buprenorphine. May need pain management d epending on post operative course. (8) Pancytopenia: Plan: -chronic although platelets not usually this low. Concerning for infective etiology -follow up blood and urine cultures -Unasyn to cover sinusitis -Continue to trend CBC. (9) On total parenteral nutrition (TPN): Plan: -Consult placed to nutrition for management. -Per hepatology note from 10/05/2021, recommend keeping lipid infusions to a minimum and using SMOF whenever possible. -OK to have her TPN today - K Cl 40 meq IV given to replace K 3.0 -21 mmol K-Phos IV to replace phosphorus 1.3 (10) Severe protein-energy malnutrition: Plan: Chronic TPN as above (11) Gastrointestinal tube present: Plan: Can likely be used for SBO moving forward but for now since NG tube place and appears to be working well will continue with this and leave PEG to drain to gravity (12) Small bowel obstruction: Plan: Chronic partial. Switch meds to IV. NG tube to low intermittent suction. Plan: VTE Prophylaxis - held pre-operatively Diet - NPO pending surgery today Disposition - continue admission on med/tele due to hypokalemia Admission and Anticipated Discharge Date Admission Date: October 26, 2021 Subjective Patient seen preoperatively. Pain much improved after the block performed by anesthesiology yesterday. Still with significant output through her NG tube. Review of Systems Review of Systems: All systems reviewed & are unremarkable except as noted in Subjective Physical Exam Constitutional: + cachectic and + frail appearing; no acute distress Eyes: sclerae not anicteric and normal pupil size ENMT: Mouth: oral mucous membranes not dry Neck: trachea midline, no thyromegaly Respiratory: normal respiratory effort, lungs clear to auscultation Cardiovascular: RRR, no murmur, no edema Gastrointestinal (Abdomen): Inspection/Auscultation: + hypoactive bowel sounds; abdomen not distended Percussion/Palpation: abdomen soft; abdomen nontender, no guarding and abdomen not rigid Musculoskeletal: Left leg is shortened and externally rotated with sensation intact and posterior tibial and dorsalis pedis pulses intact. Capillary refill less than 2 seconds. Skin: + ulcer (Stage II pressure ulcer over thoracic spinous process) and + jaundice Neurologic: awake; not confused Motor/Sensory: no tremor and no sensory deficit Psychiatric: A+Ox3, euthymic affect Results & Data Results & Data ([facility]) Vital Signs (Past 12 Hours) Vital Signs Temp Pulse Pulse Pulse Resp BP Pulse Ox 10/27/21 18:10 36.4 C L 75 16 143/75 H 96 10/27/21 17:40 36.4 C L 77 16 145/77 H 98 10/27/21 17:25 36.4 C L 74 16 131/75 97 10/27/21 17:10 76 20 122/64 97 10/27/21 17:00 74 18 127/66 97 10/27/21 16:50 75 16 121/65 97 10/27/21 16:40 75 22 118/64 97 10/27/21 16:30 36.5 C 77 19 122/64 97 10/27/21 16:20 78 13 126/71 98 10/27/21 16:10 88 17 119/66 100 10/27/21 16:00 73 21 128/71 100 10/27/21 15:50 78 16 134/74 100 10/27/21 15:42 36.3 C L 81 16 142/77 H 100 10/27/21 13:07 37.4 C 84 20 116/88 95 10/27/21 11:13 37.1 C 81 16 138/74 94 10/27/21 08:00 63 10/27/21 07:43 37.0 C 80 18 121/63 95 PG Care Time/CCT Total # of Minutes Spent Total Time Spent with Patient: Total time spent is greater than 50% in coordination of care (as documented) at patient's floor/unit and/or counseling patient: Coding Level of Care Code 04427 Subseq Hosp Care Lvl 3 Diagnoses Left displaced femoral neck fracture S72.002A Metabolic encephalopathy G93.41 Jaundice R17 Sinusitis J32.9 Abnormal LFTs R79.89 Chest pain R07.9 Chronic pain syndrome G89.4 Pancytopenia D61.818 On total parenteral nutrition (TPN) Z78.9 Severe protein-energy malnutrition E43 Gastrointestinal tube present Z93.1 Small bowel obstruction K56.609
[2021-10-27] MEDS: DOCUSATE SODIUM 100 MG CAP PO SCH (20:27)
[2021-10-27] MEDS: ceFAZolin 1000MG 1,000 MG/7.5 ML SYR IV SCH (20:30)
[2021-10-27] MEDS ORDERED: SENNA 8.6 MG TAB PO SCH (21:00)
[2021-10-27] MEDS ORDERED: TRANEXAMIC ACID / 0.7% NACL 1,000 MG/100 ML BAG IV SCH (21:30)
[2021-10-27] MEDS: oxyCODONE HCL IR 5 MG TAB (IMMEDIATE RELEASE) PO PRN (23:23)
[2021-10-28] MEDS: HYDROmorphone INJ 0.5 MG/0.5 ML SYR IV PRN ×4 (00:47→08:46)
[2021-10-28] MEDS: LACTATED RINGER'S 1,000 ML IV SCH ×2 (03:45→11:34)
[2021-10-28] MEDS: ceFAZolin 1000MG 1,000 MG/7.5 ML SYR IV SCH (05:31)
[2021-10-28] MEDS: AMPICILLIN/SULBACTAM SOD 3,000 MG in 0.9 % SODIUM CHLORIDE 100 ML IV SCH ×3 (05:31→17:45)
[2021-10-28 06:34] LABS: Albumin Globulin Ratio 0.8 (0.9-2); Albumin Level 2.7 gm/dl (3.4-5.0); BUN Creatinine Ratio 37.7 (10-20); Bilirubin,Total 4.6 mg/dl (0.2-1.0); Calcium 8.3 mg/dl (8.5-10.1); Creatinine Clr Calc Pharmacy 67.5 ml/min; Est GFR (African American) 116.6 ml/min; Est GFR (Non-African American) 100.6 ml/min; Globulin 3.2 gm/dl (2.5-4.0); Magnesium 1.8 mg/dl (1.7-2.4); Phosphorus 2.9 mg/dl (2.5-4.9); Potassium 3.8 mmol/L (3.5-5.1); Total Protein 5.9 gm/dl (6.0-8.3)
[2021-10-28] MEDS: [UNRECOGNIZED DRUG - REMARK] SCH (07:17)
[2021-10-28] MEDS: oxyCODONE HCL IR 5 MG TAB (IMMEDIATE RELEASE) PO PRN (07:25)
[2021-10-28] MEDS: MULTIVITAMIN TAB PO SCH (07:25)
[2021-10-28] MEDS: ASCORBIC ACID 500 MG TAB PO SCH ×2 (07:25→17:51)
[2021-10-28] MEDS: FAMOTIDINE 20 MG TAB PO SCH (07:25)
[2021-10-28] MEDS: DOCUSATE SODIUM 100 MG CAP PO SCH (07:27)
[2021-10-28] MEDS ORDERED: POTASSIUM CHLORIDE / WTR 20 MEQ/100 ML PLCT IV ONE (07:45)
--- NOTE | 2021-10-28 08:07 | Progress Notes ---
DATE OF SERVICE: 10/28/2021. SUBJECTIVE: A 56-year-old female with multiple medical comorbidities. Postop day 1 from a left ceme nted bipolar hip arthroplasty for fracture. She complains of just chronic aches and pains. She is r equesting pain medicine. No new specific complaints. OBJECTIVE: VITAL SIGNS: Temperature 37.1. Vital signs are stable. GENERAL: Shows a frail, cachectic female who is lying in bed. She does not look particularly uncomf ortable. EXTREMITIES: Examination of the left hip and leg reveals the leg lengths to be equal. Dressing is c lean, dry and intact. Thigh is soft and supple. She is neurologically intact. LABORATORY DATA: Labs are pending this morning. ASSESSMENT: A 56-year-old female postoperative day 1 from a left cemented bipolar hip arthroplasty f or fracture, doing okay. She has got chronic pain syndrome. Her hip seems to be doing well. PLAN: 1. DVT prophylaxis includes thigh-high TEDs and SCDs. I would not recommend further DVT prophylaxis , considering her underlying medical issues along with her low platelet count. 2. PT/OT. She can weight bear as tolerated in left lower extremity. 3. Pain control. We will leave that up to the medical doctors. May benefit from a pain therapy con sult. Pain is going to be difficult thing to managing her. 4. Medical management as per the medicine physicians. 5. Disposition: She is orthopedically okay for discharge any time medically stable. I need to see her back two to three weeks out from her surgery date. Any orthopedic questions can be directed to yevgeniy araiza at [phone]. Job ID: [id number]
[2021-10-28 08:11] LABS: Hematocrit (blood only) 32.3 % (37-47); Hemoglobin 10.4 g/dL (12.0-16.0); Immature Granulocytes # (auto) 0.01 K/uL (0.00-0.02); Immature Granulocytes % (auto) 0.2 %; Lymphocytes % (auto) 10.5 %; Mean Corpuscular Hemoglobin 30.7 pg (25-34); Mean Corpuscular Hgb Conc 32.2 g/dL (32-36); Mean Corpuscular Volume 95.3 fL (80-100); Mean Platelet Volume 10.8 fL (7.4-10.4); Monocytes # (auto) 0.16 K/uL (0.11-0.59); Monocytes % (auto) 2.4 %; Neutrophils # (auto) 5.77 K/uL (1.4-6.5); Neutrophils % (auto) 86.9 %; Platelet Count 114 K/uL (130-400); RDW Coefficient of Variation 15.8 % (11.5-14.5); Red Blood Count 3.39 M/uL (4.2-5.4); White Blood Count 6.64 K/uL (4.8-10.8)
[2021-10-28] MEDS ORDERED: HYDROmorphone INJ 0.5 MG/0.5 ML SYR IV PRN (10:50)
[2021-10-28] MEDS: HYDROmorphone INJ 1 MG/ML SYRINGE IV PRN ×4 (11:29→22:03)
[2021-10-28] MEDS: FAMOTIDINE 20 MG in SYRINGE 3 ML IV SCH ×2 (12:12→21:08)
[2021-10-28] MEDS ORDERED: AMINO ACID 8% IV SCH (21:00)
[2021-10-28] MEDS ORDERED: [UNRECOGNIZED DRUG - OTHER] IV SCH (21:00)
[2021-10-28] MEDS ORDERED: CENTRAL TPN IV SCH (21:00)
[2021-10-28] MEDS: MELATONIN 3 MG TAB PO PRN (21:08)
--- NOTE | 2021-10-28 22:23 | Hospitalist Progress Note ---
Date of Service October 28, 2021 Assessment & Plan (1) Left displaced femoral neck fracture: Plan: Unclear if traumatic vs. atraumatic - multiple vertebral fractures suggestive of osteoporosis and would qualify for intravenous bisphosphonate therapy regardless of DEXA which is likely unnecessary. Vit D level 23.5 ng/ml. Unable to replace at this time due to NG tube placement. Blood cultures negative after 48 hours. Continue on Unasyn for sinusitis. Can restart TPN. Increase Dilaudid to 0.5mg/1mg. Consult pain management. She is requested Ativan and then Dilaudid which I explained I was not willing to do given per presentation to the hospital. Appreciate orthopedic management (2) Metabolic encephalopathy: Plan: Suspect from Ativan per patient +/- buprenorphine as she only had three pills of Ativan per PDMP Resolved. (3) Jaundice: Plan: MRCP reviewed from [facility] on Monday. No biliary obstruction seen s/p cholecys tectomy. Severe dilatation of second segment of duodenum with transitional point in third segment suspicious for superior mesenteric artery syndrome. Recommended CT A/P with oral and IV contrast for further workup of this. CT here with no mention of SMA sydrome likely as her SBO in the interim has been better treated with NG tube placement on suction. Given no biliary dilatation and chronic elevation in bilirubin and LFTs - no pre-op workup is required at this stage. ?secondary to partial SBO with dilation of duodenum in this area vs. lipids from TPN Continue to trend CMP (4) Sinusitis: Plan: Prior diagnosis of this. No significant current symptoms. Swithed Augmentin to Unasyn given she is currently not able to tolerate PO meds. (5) Abnormal LFTs: Plan: -See above. (6) Chest pain: Plan: Mild however given complexity of patient and prior missed hip fracture given difficulty in patient exam CT for PE done which was subsequently negative. Ongoing since Monday and troponin negative on admission. No need to repeat this. Suspect MSK as reproducible on palpation. (7) Chronic pain syndrome: Plan: Utilizing dilaudid instead of her buprenorphine. Consult pain management (8) Pancytopenia: Plan: -follow up blood and urine cultures -Unasyn to cover sinusitis -Continue to trend CBC. (9) On total parenteral nutrition (TPN): Plan: -Consult placed to nutrition for management. -Per hepatology note from 10/05/2021, recommend keeping lipid infusions to a minimum and using SMOF whenever possible. -OK to have her TPN today - Continue to replace electrolytes as needed (10) Severe protein-energy malnutrition: Plan: Chronic TPN as above (11) Gastrointestinal tube present: Plan: Can likely be used for SBO moving forward but for now since NG tube place and appears to be working well will continue with this and leave PEG to drain to gravity (12) Small bowel obstruction: Plan: Chronic partial. Switch meds to IV. NG tube to low intermittent suction. Plan: VTE Prophylaxis - will restart once ok by orthopedics Diet - clear liquids Disposition - stable for transfer to med/surg Admission and Anticipated Discharge Date Admission Date: October 26, 2021 Subjective Much more alert today. Does not appear to be in any acute distress but reports having severity 9/10 pain. NG tube on low intermittent suction with high output. No abdominal pain. Managed physical therapy this morning. Review of Systems Review of Systems: All systems reviewed & are unremarkable except as noted in Subjective Physical Exam Constitutional: + cachectic and + frail appearing; no acute distress Eyes: sclerae not anicteric and normal pupil size Neck: trachea midline, no thyromegaly Respiratory: normal respiratory effort, lungs clear to auscultation Cardiovascular: RRR, no murmur, no edema Gastrointestinal (Abdomen): Inspection/Auscultation: abdomen not distended Percussion/Palpation: abdomen soft; abdomen nontender, no guarding and abdomen not rigid Skin: + jaundice Neurologic: awake; not confused Motor/Sensory: no tremor and no sensory deficit Psychiatric: A+Ox3, euthymic affect Results & Data Results & Data ([facility]) Vital Signs (Past 12 Hours) Vital Signs Temp Pulse Resp BP Pulse Ox 10/28/21 15:00 36.9 C 94 H 20 106/69 95 10/28/21 11:30 37.0 C 100 H 16 127/82 95 PG Care Time/CCT Total # of Minutes Spent Total Time Spent with Patient: Total time spent is greater than 50% in coordination of care (as documented) at patient's floor/unit and/or counseling patient: Coding Level of Care Code 09895 Subseq Hosp Care Lvl 2 Diagnoses Left displaced femoral neck fracture S72.002A Metabolic encephalopathy G93.41 Jaundice R17 Sinusitis J32.9 Abnormal LFTs R79.89 Chest pain R07.9 Chronic pain syndrome G89.4 Pancytopenia D61.818 On total parenteral nutrition (TPN) Z78.9 Severe protein-energy malnutrition E43 Gastrointestinal tube present Z93.1 Small bowel obstruction K56.609
[2021-10-29] MEDS: AMPICILLIN/SULBACTAM SOD 3,000 MG in 0.9 % SODIUM CHLORIDE 100 ML IV SCH ×5 (00:15→23:49)
[2021-10-29] MEDS: HYDROmorphone INJ 1 MG/ML SYRINGE IV PRN ×2 (06:05→13:13)
[2021-10-29 06:27] LABS: Hematocrit (blood only) 29.2 % (37-47); Hemoglobin 9.5 g/dL (12.0-16.0); Mean Corpuscular Hemoglobin 31.4 pg (25-34); Mean Corpuscular Hgb Conc 32.5 g/dL (32-36); Mean Corpuscular Volume 96.4 fL (80-100); RDW Coefficient of Variation 15.7 % (11.5-14.5); RDW Standard Deviation 55.7 fL (36.4-46.3); Red Blood Count 3.03 M/uL (4.2-5.4); White Blood Count 3.51 K/uL (4.8-10.8)
[2021-10-29 06:41] LABS: Mean Platelet Volume 11.4 fL (7.4-10.4); Platelet Count 98 K/uL (130-400)
[2021-10-29 06:48] LABS: Immature Granulocytes # (auto) 0.01 K/uL (0.00-0.02); Immature Granulocytes % (auto) 0.3 %; Lymphocytes % (auto) 8.5 %; Monocytes # (auto) 0.21 K/uL (0.11-0.59); Neutrophils # (auto) 2.99 K/uL (1.4-6.5); Neutrophils % (auto) 85.2 %
[2021-10-29 06:51] LABS: Albumin Globulin Ratio 0.7 (0.9-2); Albumin Level 2.4 gm/dl (3.4-5.0); Bilirubin,Total 3.6 mg/dl (0.2-1.0); Calcium 7.8 mg/dl (8.5-10.1); Creatinine Clr Calc Pharmacy 82.3 ml/min; Est GFR (African American) 124.5 ml/min; Est GFR (Non-African American) 107.4 ml/min; Globulin 3.3 gm/dl (2.5-4.0); Magnesium 1.9 mg/dl (1.7-2.4); Phosphorus 2.4 mg/dl (2.5-4.9); Potassium 3.6 mmol/L (3.5-5.1); Total Protein 5.7 gm/dl (6.0-8.3)
--- NOTE | 2021-10-29 08:37 | Pain Management Consultation ---
Date of Consultation October 29, 2021 Assessment & Plan (1) Left displaced femoral neck fracture: (2) Chronic pain syndrome: (3) Cachexia: (4) Small bowel obstruction: (5) History of total left hip arthroplasty: * Buprenorphine 8mg SL three times daily was reordered. She has been on this medication chronically. * I have added Oxycodone 5mg x 6 hours if needed for post operative pain relief. * IF pain is not relieved with Oxycodone then she can still receive the IV Dilaudid. I did explain to the patient that she should limit the use of the IV Dilaudid in preparation for discharge to home. She understands. Thank you for the consult. Please call with any questions or concerns. History of Present Illness Attending Physician: Roman Navas MD History of Present Illness Mrs. Lopez is a 56 year old female with a significant history of chronic pain syndrome, cachexia with TPN treatment, osteoporosis, lumbar compression fractures. She did take Ativan in preparation for liver MRI and became confused, weak, and fell. She did sustain a left hip fracture that did require a hip hemiarthroplasty. She is chronically on buprenorphine 8 mg sublingual 3 times daily for chronic pain over the last 2 years which is mildly efficacious. Patient states that she is not very active and typically rests at her home most of the day. Patient is to work with physical therapy on ambulation today. The Suboxone has been discontinued. She did have Oxycodone ordered but it was also discontinued. She is currently receiving IV Dilaudid 1mg x 3 hours PRN pain which helps for about 30 minutes at a time. No side effects to medication. Allergies Allergy/AdvReac Type Severity Reaction Status Date / Time ibuprofen Allergy Intermediate RINGING IN Verified 10/25/21 10:09 EARS,PARTIAL LOSS HEARING ketorolac Allergy Intermediate ROARING Verified 10/25/21 10:09 SOUND IN EARS NSAIDS (Non-Steroidal Allergy Intermediate RINGING IN Verified 10/25/21 10:09 Anti-Inflamma EARS zoledronic acid Allergy Intermediate FLU LIKE Verified 10/25/21 10:09 SYMPTOMS SEVERE HEADACHE vancomycin AdvReac Severe ZACHERY Verified 10/25/21 10:09 SYNDROME alprazolam AdvReac Intermediate LOSS OF Verified 10/25/21 10:09 HEARING aspirin AdvReac Intermediate RINGING IN Verified 10/25/21 10:09 EARS,PARTIAL HEARING LOSS promethazine AdvReac Mild RESTLESS Verified 10/25/21 10:09 LEGS Home Medications Medication Instructions Recorded Confirmed Type buprenorphine HCl 8 mg sublingual 8 mg SUBLINGUAL TID PRN 11/01/20 10/25/21 History tablet amoxicillin 875 mg-potassium 1 tab PO BID 10 Days #20 tab 10/20/21 10/25/21 Rx clavulanate 125 mg tablet Patient History Medical History Anxiety Chronic pain disorder Chronic pancreatitis Esophageal reflux Fatty liver Secondary to chronic TPN use Gastrointestinal tube present Gastrostomy tube in place Hearing deficit Hypersplenism Infected venous access port Iron deficiency anemia IRON INFUSIONS IN PAST Lumbar spinal stenosis Malnutrition Neutropenia On total parenteral nutrition (TPN) 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 Osteoporosis Peripheral neuropathy Radiation enterocolitis Severe protein-energy malnutrition Short bowel syndrome Small bowel obstruction Subclinical hypothyroidism Thoracic compression fracture Urinary incontinence Surgical History (Updated 10/29/21 @ 09:09 by Connie Mazariegos PA-C) History of cholecystectomy History of colonoscopy History of esophagogastroduodenoscopy (EGD) History of kyphoplasty (~2017) History of spinal surgery THORACIC AND LUMBAR AREA TUMOR REMOVED 1991 + 1992 - RADIATION 5 WEEKS History of surgery PEG TUBE INSERTION (NOTHING RUNS THROUGH PEG TUBE/USED ONLY FOR RELEASING FOOD PRODUCTS D/T SMALL BOWEL OBSTRUCTION) "PT EATS FOR COMFORT" History of total left hip arthroplasty Port-A-Cath in place BRUNER Status post insertion of percutaneous endoscopic gastrostomy (PEG) tube Family History Mother Diabetes Hypertension Father Family hx of colon cancer Bladder cancer Sister Alcohol abuse Deep vein thrombosis Hypertension Brother Hypertension Grandmother Hypertension Aunt Hypertension Other Cancer Social History Smoking Status: Never smoker Tobacco Type: Cigarettes Age Started Using Tobacco: 12; Age Quit Using Tobacco: 21; Second Hand Exposure: No; Do You Dip or Chew Tobacco: No; Hx Alcohol Use: No Hx Substance Use: No Preferred Language: Georgian Communication Ability: Effective Visual Impairment: No Limitations Teacher Resource Required: No Beliefs That Will Affect Care: None marital status: Current Living Situation: Spouse current occupational status: disabled Other Information That Helps Us Care for You: No Feels Safe at Home: Yes Safety Concerns: Feels Safe At This Time caffeine: Yes Dental Care, Regularly: Yes Physical Activity Frequency: Does not Exercise Seatbelt Use: always Sunscreen Use: No Assistive Devices: Oxygen - Continuous Physical Exam Physical Exam: GENERAL: This is a thin and frail appearing female. Appears much older than her stated age. HEAD/FACE: Normocephalic and atraumatic. EYES: No drainage or conjunctival injection. ENT: Nose without bleeding or discharge. Oral mucosa moist. + NG tube in place. NECK: Full ROM without apparent pain. No swelling or masses noted. RESPIRATORY: Patient with unlabored breathing. No signs of respiratory distress. CHEST/AXILLA: Chest movement symmetrical. No deformities noted. BACK: Moves without difficulty SKIN: [place], warm and dry. No rash noted. MS/EXTREMITY: No swelling, no deformities. Moving extremities appropriately. NEURO: Alert and appears oriented. Speech is fluent. Cranial Nerves are grossly intact. PSYCH: Alert, pleasant, affect is calm
[2021-10-29] MEDS ORDERED: LACTATED RINGER'S 1,000 ML IV SCH (09:00)
[2021-10-29] MEDS ORDERED: BUPRENORPHINE/NALOXONE 8/2 MG TAB SL SCH (09:00)
[2021-10-29] MEDS: [UNRECOGNIZED DRUG - REMARK] SCH (09:17)
[2021-10-29] MEDS: FAMOTIDINE 20 MG in SYRINGE 3 ML IV SCH (09:17)
[2021-10-29] MEDS: MULTIVITAMIN TAB PO SCH (09:34)
[2021-10-29] MEDS: ASCORBIC ACID 500 MG TAB PO SCH ×2 (09:34→16:39)
[2021-10-29] MEDS: oxyCODONE HCL IR 5 MG TAB (IMMEDIATE RELEASE) PO PRN ×2 (09:38→16:40)
[2021-10-29] MEDS ORDERED: POTASSIUM PHOS 3 MMOL/1 ML INFUSION IV STA (11:26)
--- NOTE | 2021-10-29 11:57 | Gastrointestinal Consultation ---
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 Suspect her liver enzyme elevation is related to TPN cholestasis and improvement is due to the change in her TPN . There is plan for OP EUS-LB per her hepatology team. Regarding her chronic partial SBO, would recommend limited use of narcotic analgesia. Continued use of PEG-J venting as needed. Feeding tube port was changed. Appreciate general surgery consultation but would recommend conservative management at this time. Thank you for allowing us to participate in the care of this patient. Please call with any acute changes, questions or concerns. Please see addendum below with additional recommendation from my supervising physician. Supervising Physician Co-Signing Physician Notes I saw and evaluated the patient. Gastroenterology is consulted for history of elevated liver enzymes in addition to dysfunction of a venting PEG tube and possible small bowel obstruction in the setting of a recent fracture repair the patient was placed on to NG tube suction last evening and notes that her abdominal discomfort is better. She does have a history of elevated liver tests and was recently seen by the hepatology service and GI nutrition service at [facility]. They wonder if her elevated liver enzymes are related to longstanding need of TPN and recently reduced her lipid intake. This is resulted in a significant reduction in her liver associated enzymes. The patient did have an outpatient MRCP as well which showed no evidence of biliary obstruction. Physical examination Frail appearing female Mild scleral icterus noted Impression patient with a history of elevated liver enzymes likely related to longstanding use of TPN. It appears that her liver enzymes are improved after reduction of the lipid content within her TPN. This is presently being managed by her supervisor plastering and GI client specialist at [facility]. I would recommend that she follow with them as an outpatient as they may need to consider a liver biopsy in the future should her liver enzymes not continue to normalize. With regard to the venting PEG tube the fitting was replaced by one of our nurses from the GI unit. Finally with a question of small bowel obstruction, the patient should have a general surgery consultation but would recommend continued NG tube suction. The finding is likely related to her narcotic need after her recent hip surgery and will hopefully improve with conservative therapy. 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 She was recently evaluated by hepatology for TPN associated cholestasis, progression of steatohepatitis with plan for outpatient LB pending MRI. Outpatient liver enzymes Tbili show downtrending liver function tests INR 1.2 Outpatient liver MRI: No biliary obstruction is seen. Status post cholecystectomy. Severe dilatation of the 2nd segment of the duodenum with a transitional point in the 3rd segment, suspicious for superior mesenteric artery syndrome. Additional dilated segments of small bowel are seen in the pelvis, dif ficult to characterize. Further evaluation with CT of the abdomen and pelvis with oral and intravenous contrast material is recommended. Allergies Allergy/AdvReac Type Severity Reaction Status Date / Time ibuprofen Allergy Intermediate RINGING IN Verified 10/25/21 10:09 EARS,PARTIAL LOSS HEARING ketorolac Allergy Intermediate ROARING Verified 10/25/21 10:09 SOUND IN EARS NSAIDS (Non-Steroidal Allergy Intermediate RINGING IN Verified 10/25/21 10:09 Anti-Inflamma EARS zoledronic acid Allergy Intermediate FLU LIKE Verified 10/25/21 10:09 SYMPTOMS SEVERE HEADACHE vancomycin AdvReac Severe ZACHERY Verified 10/25/21 10:09 SYNDROME alprazolam AdvReac Intermediate LOSS OF Verified 10/25/21 10:09 HEARING aspirin AdvReac Intermediate RINGING IN Verified 10/25/21 10:09 EARS,PARTIAL HEARING LOSS promethazine AdvReac Mild RESTLESS Verified 10/25/21 10:09 LEGS Home Medications Medication Instructions Recorded Confirmed Type buprenorphine HCl 8 mg sublingual 8 mg SUBLINGUAL TID PRN 11/01/20 10/25/21 History tablet amoxicillin 875 mg-potassium 1 tab PO BID 10 Days #20 tab 10/20/21 10/25/21 Rx clavulanate 125 mg tablet Patient History Medical History Anxiety Chronic pain disorder Chronic pancreatitis Esophageal reflux Fatty liver Secondary to chronic TPN use Gastrointestinal tube present Gastrostomy tube in place Hearing deficit Hypersplenism Infected venous access port Iron deficiency anemia IRON INFUSIONS IN PAST Lumbar spinal stenosis Malnutrition Neutropenia On total parenteral nutrition (TPN) 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 Osteoporosis Peripheral neuropathy Radiation enterocolitis Severe protein-energy malnutrition Short bowel syndrome Small bowel obstruction Subclinical hypothyroidism Thoracic compression fracture Urinary incontinence Surgical History (Updated 10/29/21 @ 09:09 by Connie Mazariegos PA-C) History of cholecystectomy History of colonoscopy History of esophagogastroduodenoscopy (EGD) History of kyphoplasty (~2017) History of spinal surgery THORACIC AND LUMBAR AREA TUMOR REMOVED 1991 + 1992 - RADIATION 5 WEEKS History of surgery PEG TUBE INSERTION (NOTHING RUNS THROUGH PEG TUBE/USED ONLY FOR RELEASING FOOD PRODUCTS D/T SMALL BOWEL OBSTRUCTION) "PT EATS FOR COMFORT" History of total left hip arthroplasty Port-A-Cath in place BRUNER Status post insertion of percutaneous endoscopic gastrostomy (PEG) tube Family History Mother Diabetes Hypertension Father Family hx of colon cancer Bladder cancer Sister Alcohol abuse Deep vein thrombosis Hypertension Brother Hypertension Grandmother Hypertension Aunt Hypertension Other Cancer Social History Smoking Status: Never smoker Tobacco Type: Cigarettes Age Started Using Tobacco: 12; Age Quit Using Tobacco: 21; Second Hand Exposure: No; Do You Dip or Chew Tobacco: No; Hx Alcohol Use: No Hx Substance Use: No Preferred Language: Italian Communication Ability: Effective Visual Impairment: No Limitations Fish Hatchery Specialist Required: No Beliefs That Will Affect Care: None marital status: Current Living Situation: Spouse current occupational status: disabled Other Information That Helps Us Care for You: No Feels Safe at Home: Yes Safety Concerns: Feels Safe At This Time caffeine: Yes Dental Care, Regularly: Yes Physical Activity Frequency: Does not Exercise Seatbelt Use: always Sunscreen Use: No Assistive Devices: Glasses and Walker Review of Systems Review of Systems: All systems reviewed & are unremarkable except as noted in HPI & below Physical Exam Constitutional: WD/WN, vitals as above thin, frail Neck: trachea midline Respiratory: normal respiratory effort, lungs clear to auscultation Cardiovascular: Rate/Rhythm: regular rate and regular rhythm Gastrointestinal (Abdomen): normal bowel sounds, soft, nontender, no hepatosplenomegaly Skin: no rashes, warm and dry Results & Data ([facility]) Vital Signs (Past 12 Hours) Vital Signs Temp Pulse Resp BP Pulse Ox 10/29/21 07:16 36.4 C L 73 16 138/68 97 Laboratory Results 10/29/21 10/29/21 Range/Units 06:01 06:01 WBC 3.51 L (4.8-10.8) K/uL RBC 3.03 L (4.2-5.4) M/uL Hgb 9.5 L (12.0-16.0) g/dL Hct 29.2 L (37-47) % MCV 96.4 (80-100) fL MCH 31.4 (25-34) pg MCHC 32.5 (32-36) g/dL RDW Std Deviation 55.7 H (36.4-46.3) fL RDW Coeff of Esau 15.7 H (11.5-14.5) % Plt Count 98 L (130-400) K/uL MPV 11.4 H (7.4-10.4) fL Immature Gran % (Auto) 0.3 % Neut % (Auto) 85.2 % Lymph % (Auto) 8.5 % [place] % (Auto) 6.0 % Eos % (Auto) 0.0 % Baso % (Auto) 0.0 % Neut # (Auto) 2.99 (1.4-6.5) K/uL Lymph # (Auto) 0.30 L (1.2-3.4) K/uL [place] # (Auto) 0.21 (0.11-0.59) K/uL Eos # (Auto) 0.00 (0-0.5) K/uL Baso # (Auto) 0.00 (0-0.2) K/uL Immature Gran # (Auto) 0.01 (0.00-0.02) K/uL Sodium 143 (136-145) mmol/L Potassium 3.6 (3.5-5.1) mmol/L Chloride 106 (98-107) mmol/L Carbon Dioxide 33 H (21-32) mmol/L Anion Gap 4 (3-11) BUN 34 H (6-23) mg/dl Creatinine 0.50 L (0.6-1.2) mg/dl Est Cr Clr Drug Dosing 82.3 ml/min Est GFR ( Amer) 124.5 ml/min Est GFR (Non-Af Amer) 107.4 ml/min BUN/Creatinine Ratio 68.0 H (10-20) Glucose 172 H (70-99(Fasting)) mg/dl Calcium 7.8 L (8.5-10.1) mg/dl Phosphorus 2.4 L (2.5-4.9) mg/dl Magnesium 1.9 (1.7-2.4) mg/dl Total Bilirubin 3.6 H (0.2-1.0) mg/dl AST 60 H (13-39) U/L ALT 57 H (7-52) U/L Alkaline Phosphatase 177 H (34-104) U/L Total Protein 5.7 L (6.0-8.3) gm/dl Albumin 2.4 L (3.4-5.0) gm/dl Globulin 3.3 (2.5-4.0) gm/dl Albumin/Globulin Ratio 0.7 L (0.9-2)
[2021-10-29] MEDS ORDERED: POTASSIUM PHOSPHATE 9 MMOL in SODIUM CHLORIDE 0.9% 250 ML IV ONE (12:00)
[2021-10-29] MEDS ORDERED: POTASSIUM PHOSPHATE 9 MMOL in DEXTROSE 5% 250 ML IV ONE (12:00)
[2021-10-29] MEDS ORDERED: POTASSIUM CHLORIDE / WTR 20 MEQ/100 ML PLCT IV ONE (12:00)
[2021-10-29] MEDS: BUPRENORPHINE HCL 8 MG SL SCH ×2 (14:39→20:36)
--- NOTE | 2021-10-29 19:17 | Hospitalist Progress Note ---
Date of Service October 29, 2021 Assessment & Plan (1) Left displaced femoral neck fracture: Plan: Unclear if traumatic vs. atraumatic - multiple vertebral fractures suggestive of osteoporosis and would qualify for intravenous bisphosphonate therapy regardless of DEXA which is likely unnecessary. Vit D level 23.5 ng/ml. Unable to replace at this time due to NG tube placement. Blood cultures negative after 48 hours. Continue on Unasyn for sinusitis. Restarted on TPN. Remove wayne catheter today. Appreciate pain management - restarted on buprenorphine, likely dilaudid will be less helpful while on this. Appreciate orthopedic management (2) Metabolic encephalopathy: Plan: Suspect from Ativan per patient +/- buprenorphine as she only had three pills of Ativan per PDMP Resolved. (3) Jaundice: Plan: MRCP reviewed from [facility] on Monday. No biliary obstruction seen s/p cholecystectomy. Severe dilatation of second segment of duodenum with transitional point in third segment suspicious for superior mesenteric artery syndrome. Recommended CT A/P with oral and IV contrast for further workup of this. CT here with no mention of SMA syndrome likely as her SBO in the interim has been better treated with NG tube placement on suction. Given no biliary dilatation and chronic elevation in bilirubin and LFTs - no pre-op workup is required at this stage. ?secondary to partial SBO with dilation of duodenum in this area vs. lipids from TPN Continue to trend CMP (4) Sinusitis: Plan: Prior diagnosis of this. No significant current symptoms. Switched Augmentin to Unasyn given she is currently not able to absorb reliably PO meds. (5) Abnormal LFTs: Plan: -See above. (6) Chest pain: Plan: Mild however given complexity of patient and prior missed hip fracture given difficulty in patient exam CT for PE done which was subsequently negative. Ongoing since Monday and troponin negative on admission. No need to repeat this. Suspect MSK as reproducible on palpation. (7) Chronic pain syndrome: Plan: Appreciate pain management. (8) Pancytopenia: Plan: -follow up blood and urine cultures - negative @ 48 hours -Unasyn to cover sinusitis -Continue to trend CBC. (9) On total parenteral nutrition (TPN): Plan: -Consult placed to nutrition for management. -Per hepatology note from 10/05/2021, recommend keeping lipid infusions to a minimum and using SMOF whenever possible. -OK to have her TPN today - Continue to replace electrolytes as needed (10) Severe protein-energy malnutrition: Plan: Chronic TPN as above (11) Gastrointestinal tube present: Plan: Can likely be used for SBO moving forward but for now since NG tube place and appears to be working well will continue with this and leave PEG to drain to gravity (12) Small bowel obstruction: Plan: Chronic partial. Switch meds to IV. NG tube to low intermittent suction. Consult gastroenterology for ongoing management due to complexity of patient and advice regarding when to switch to suction/gravitational flow of her PEG. Plan: VTE Prophylaxis - will restart once ok by orthopedics Diet - clear liquids Disposition - stable for transfer to med/surg, PT/OT, rehab Admission and Anticipated Discharge Date Admission Date: October 26, 2021 Subjective Still having significant NG tube output. She reports pain not under control. Pain management restarted on buprenorphine. Review of Systems Review of Systems: All systems reviewed & are unremarkable except as noted in Subjective Physical Exam Constitutional: + cachectic and + frail appearing; no acute distress Eyes: sclerae not anicteric and normal pupil size ENMT: Mouth: oral mucous membranes not dry Neck: trachea midline, no thyromegaly Respiratory: normal respiratory effort, lungs clear to auscultation Cardiovascular: RRR, no murmur, no edema Gastrointestinal (Abdomen): Inspection/Auscultation: abdomen not distended Percussion/Palpation: abdomen soft; abdomen nontender, no guarding and abdomen not rigid Skin: + jaundice Neurologic: awake; not confused Motor/Sensory: no tremor and no sensory deficit Psychiatric: A+Ox3, euthymic affect Results & Data Results & Data ([facility]) Vital Signs (Past 12 Hours) Vital Signs Temp Pulse Resp BP Pulse Ox 10/29/21 15:41 36.6 C 79 16 155/79 H 99 PG Care Time/CCT Total # of Minutes Spent Total Time Spent with Patient: Total time spent is greater than 50% in coordination of care (as documented) at patient's floor/unit and/or counseling patient: Coding Level of Care Code 48324 Subseq Hosp Care Lvl 2 Diagnoses Left displaced femoral neck fracture S72.002A Metabolic encephalopathy G93.41 Jaundice R17 Sinusitis J32.9 Abnormal LFTs R79.89 Chest pain R07.9 Chronic pain syndrome G89.4 Pancytopenia D61.818 On total parenteral nutrition (TPN) Z78.9 Severe protein-energy malnutrition E43 Gastrointestinal tube present Z93.1 Small bowel obstruction K56.609
[2021-10-29] MEDS ORDERED: CENTRAL TPN IV SCH (21:00)
[2021-10-29] MEDS ORDERED: CLINOLIPID 20% IV FAT EMULSION 250 ML IV SCH (21:00)
[2021-10-29] MEDS ORDERED: AMINO ACID 8% IV SCH (21:00)
[2021-10-29] MEDS ORDERED: [UNRECOGNIZED DRUG - OTHER] IV SCH (21:00)
[2021-10-30] MEDS: HYDROmorphone INJ 1 MG/ML SYRINGE IV PRN ×4 (00:54→23:26)
[2021-10-30] MEDS: MELATONIN 3 MG TAB PO PRN (00:54)
[2021-10-30] MEDS ORDERED: STOP CLINOLIPID ONE (03:00)
[2021-10-30] MEDS: AMPICILLIN/SULBACTAM SOD 3,000 MG in 0.9 % SODIUM CHLORIDE 100 ML IV SCH ×4 (06:09→23:57)
[2021-10-30 07:05] LABS: BUN Creatinine Ratio 72.7 (10-20); Calcium 7.5 mg/dl (8.5-10.1); Creatinine Clr Calc Pharmacy 93.5 ml/min; Est GFR (African American) 129.9 ml/min; Est GFR (Non-African American) 112.1 ml/min; Phosphorus 2.9 mg/dl (2.5-4.9); Potassium 3.9 mmol/L (3.5-5.1)
[2021-10-30] MEDS: oxyCODONE HCL IR 5 MG TAB (IMMEDIATE RELEASE) PO PRN (07:41)
[2021-10-30] MEDS: MULTIVITAMIN TAB PO SCH (07:43)
[2021-10-30] MEDS: ASCORBIC ACID 500 MG TAB PO SCH ×2 (07:43→18:05)
[2021-10-30] MEDS: BUPRENORPHINE HCL 8 MG SL SCH ×3 (09:17→20:47)
[2021-10-30] MEDS: [UNRECOGNIZED DRUG - REMARK] SCH (09:18)
--- NOTE | 2021-10-30 09:51 | Progress Notes ---
DATE OF SERVICE: 10/30/2021. SUBJECTIVE: A 56-year-old female postop day 3 from left cemented bipolar hip arthroplasty for a disp laced femoral neck fracture. She is doing much better today. Looks much better. Still complaining of pain. No new complaints. OBJECTIVE: VITAL SIGNS: Temperature 36.6. Vital signs are stable. GENERAL: Shows a pleasant middle-aged female. She looks much better today and seems much more comfo rtable. EXTREMITIES: Examination of the left hip reveals leg lengths to be equal. Dressing is clean, dry an d intact. Thigh is soft and supple. She is neurologically intact. ASSESSMENT: This 56-year-old female with multiple medical comorbidities, now 3 days out from a left cemented bipolar hip arthroplasty for fracture. She seems to be doing much better today. Still comp laining a lot of pain, which is I think is her baseline. PLAN: 1. DVT prophylaxis includes thigh-high TEDs, SCDs and back on bilateral thigh-high TEDs, SCDs and we would recommend maybe just a baby aspirin. I do not think she is really a great candidate for more aggressive anticoagulation due to her poor nutritional status, low platelets and other medical comorb idities. 2. PT/OT. She can weight bear as tolerated in left lower extremity. Does need to obey hip precauti ons. 3. Pain control as per the medicine and pain service. 4. Disposition: She is orthopedically okay for discharge any time. I need to see her back two to t hree weeks out from surgery date. Any orthopedic questions can be directed to me at [phone]. Job ID: [id number]
[2021-10-30] MEDS: D5NSS + 20MEQ KCL 20 MEQ/1,000 ML BAG IV SCH (13:11)
--- NOTE | 2021-10-30 13:46 | Hospitalist Progress Note ---
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 due to fungemia - repeat fungal blood cultures now including a set from her central line which is the likely cause of her fungemia. Start caspofungin IV now. Likely will need central line taken out. I am concerned about her CT chest findings showing ?septic arthropathy of the right clavicular head? Check cbc, bmp, sed rate, crp in am. 2. acute/chronic pain - increase dilaudid to 1.5mg IV q4h prn. Hold oral oxycodone. 3. chronic pSBO - continue NG tube for now as per GI recs. 4. HOLD TPN due to #1; IVF - D5NS with KCL at 70cc/hr. 5. pancytopenia - tsh,b12,folate in am. 6. ?sinusitis - cont unasyn for now. Will need to check how long she was on oral augmentin at home pre-admission. 7. place wayne for #14; check ua once wayne is in. Admission and Anticipated Discharge Date Admission Date: October 26, 2021 Subjective patient w/ multiple complaints - left hip pain, low back pain (chronic, also acute), right rib and chest pain. dilaudid 0.5mg and 1mg doses are not helping her pain. prior to suboxone she was on fentanyl patches for many years. has been on suboxone for about 12 months. 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 she had received the XRT years ago. she takes liquids by mouth, then vents the PEG tube to drain the stomach. she does not have passage of gas or stool on normal basis. late in the day I was informed by staff that her admission blood cultures were positive for yeast. Review of Systems Review of Systems: gen - no fevers but c/o being cold cv - right-sided chest wall pain since her fall/injury at home pulm - no dyspnea, no orthopnea GI - chronic abdominal discomfort, no vomiting (NG tube is in place) Physical Exam Physical Exam: gen - cachectic, NAD mouth - no thrush, MMM nose - NG tube in place neck - no JVD heart - RRR, s1 s2 lungs - decreased BS bases abd - PEG-J tube in place, BS+, NT, soft ext - thin, pulses 2+ b/l skin - dressings intact left lateral hip; central line right upper chest clean Results & Data Results & Data ([facility]) Vital Signs (Past 12 Hours) Vital Signs Temp Pulse Resp BP Pulse Ox 10/30/21 07:51 36.6 C 66 16 144/76 H 95 Laboratory Results Laboratory Results - last 24 hr 10/30/21 10/30/21 06:03 16:40 Sodium 139 Potassium 3.9 Chloride 108 H Carbon Dioxide 27 Anion Gap 4 BUN 32 H Creatinine 0.44 L Est Cr Clr Drug Dosing 93.5 Est GFR ( Amer) 129.9 Est GFR (Non-Af Amer) 112.1 BUN/Creatinine Ratio 72.7 H Glucose 127 H Calcium 7.5 L Phosphorus 2.9 Magnesium 2.0 Urine Color Dark Yellow Urine Appearance Clear Urine pH 7.0 Ur Specific Waldo 1.028 Urine Protein Trace H Urine Glucose (UA) Negative Urine Ketones Negative Urine Blood Negative Urine Nitrite Negative Urine Bilirubin 1+ H Urine Urobilinogen Negative Ur Leukocyte Esterase Negative Urine WBC (Auto) 1-5 Urine RBC (Auto) 0-4 U Hyaline Cast (Auto) 1-5 U Epithel Cells (Auto) 10-20 H Urine Bacteria (Auto) Negative Diagnostic Findings 10/30/21 18:41 Fungal Smear - Pending Blood Fungal Culture - Pending 10/26/21 09:00 Urine Culture - Final Urine,Indwelling Cath No growth - less than 1,000 colonies/mL. Microbiology 10/26/21 08:54 Blood Aerobic Blood Culture - Preliminary No growth in Aerobic bottle after 48 hours. 10/26/21 08:54 Blood Anaerobic Blood Culture - Preliminary Yeast 10/26/21 09:00 Urine,Indwelling Cath Urine Culture - Final No growth - less than 1,000 colonies/mL. 10/26/21 08:49 Blood Aerobic Blood Culture - Preliminary No growth in Aerobic bottle after 48 hours. 10/26/21 08:49 Blood Anaerobic Blood Culture - Preliminary No growth in Anaerobic bottle after 48 hours. PG Care Time/CCT Total # of Minutes Spent Total Time Spent with Patient: Total time spent is greater than 50% in coordination of care (as documented) at patient's floor/unit and/or counseling patient: Coding Level of Care Code 41040 Subseq Hosp Care Lvl 3 Diagnoses Fungemia B49 Abnormal LFTs R79.89 Pathological fracture of hip due to age-related osteoporosis M80.059A Chronic pain syndrome G89.4 Chronic pancreatitis K86.1 Fatty liver K76.0 On total parenteral nutrition (TPN) Z78.9 Pancytopenia D61.818 Severe protein-energy malnutrition E43 Sinusitis J32.9 Chronic pseudo-obstruction of small intestine K59.89 Radiation enterocolitis K52.[address] R93.89 Urinary retention R33.9
--- NOTE | 2021-10-30 14:35 | Pharmacy Report ---
PHA: Parenteral Nutrition Con - Date of Service October 30, 2021 - Scope Pharmacy was consulted on 10/25/21 to manage parenteral nutrition orders for this patient. - Subjective This is continuation of chronic TPN, day #5 of inpatient TPN. - Objective Height: 4 ft 11 in Weight: 42 kg Diet: Clear Liquid Intake & Output (24hrs):: Intake & Output 10/28/21 10/29/21 10/30/21 10/31/21 06:59 06:59 06:59 06:59 Intake Total 4001 / 4001 2963.667 / 3071.667 3364 / 3364 2499 / 2499 Output Total 3625 / 3625 5800 / 5800 4750 / 4750 2175 / 2175 Balance 376 / 376 -2836.333 / -2728.333 -1386 / -1386 324 / 324 Weight 42 kg 42 kg Laboratory Data (Last 24 Hr):: 10/30/21 06:03 Sodium 139 Potassium 3.9 Chloride 108 H Carbon Dioxide 27 BUN 32 H Creatinine 0.44 L Glucose 127 H Calcium 7.5 L Phosphorus 2.9 Magnesium 2.0 Nutrition Assessment:: Please refer to the Notes section of the EMR for the most recent scientific editor note. - Assessment * Electrolytes largely stable * Chloride slightly elevated, will rebalance chloride/acetate to favor acetate * Macronutrients at goal per dietary recommendations (77 g AAs and 134 g dextrose to provide 765 kcal) * Lipids to be given twice weekly, given yesterday so will hold today * IV fluids (D5/NSS + 20 KCl @70 mL/hr) to infuse while TPN is "off" * TPN to infuse 4520-1855 - Plan For day 5 of inpatient PN administration, the following will be ordered: Macronutrients Amino acids 77 grams/day Dextrose 134.5 grams/day hold lipids Micronutrients Sodium chloride 70 mEq Sodium acetate 40 mEq Potassium phosphate 30 mMol Potassium acetate 40 mEq Magnesium sulfate 8.12 mEq Calcium gluconate 4.65 mEq Multivitamins 10 mL Trace Elements 1 mL Additional additives: famotidine 20 mg Total volume 1063 mL to be infused over 12 hrs will provide 765 kcal/day Labs, as indicated, will be ordered per protocol Pharmacy will continue to follow and adjust parenteral nutrition orders on a daily basis. Thank you for allowing us to participate in the care of this patient.
[2021-10-30] MEDS: LIDOCAINE 5% 1 PATCH TD SCH (16:26)
[2021-10-30 16:50] LABS: Appearance Urine Clear (Clear); Bacteria Urine Automated Negative (Negative); Blood Urine Negative (Negative); Color Urine Dark Yellow; Glucose Urine UA Negative (Negative); Ketones Urine Negative (Negative); Leukocyte Esterase Urine Negative (Negative); Nitrite Urine Negative (Negative); Protein Urine Trace (Negative); RBC Urine Automated 0-4 /hpf (0-4); Specific Gravity Urine 1.028 (1.000-1.030); Urobilinogen Urine Negative (Negative)
[2021-10-30 17:00] LABS: Bilirubin Urine 1+ (Negative)
[2021-10-30] MEDS ORDERED: CASPOFUNGIN 70 MG in SODIUM CHLORIDE 0.9% 250 ML IV ONE (17:15)
[2021-10-30] MEDS ORDERED: COUGH DROP (SUGAR FREE) LOZ 24 LOZ/1 BOX BUCCAL ONE (19:47)
[2021-10-30] MEDS ORDERED: [UNRECOGNIZED DRUG - OTHER] IV SCH (21:00)
[2021-10-30] MEDS ORDERED: CENTRAL TPN IV SCH (21:00)
[2021-10-30] MEDS ORDERED: AMINO ACID 8% IV SCH (21:00)
[2021-10-31] MEDS: D5NSS + 20MEQ KCL 20 MEQ/1,000 ML BAG IV SCH (02:38)
[2021-10-31] MEDS: HYDROmorphone INJ 1 MG/ML SYRINGE IV PRN ×3 (03:45→19:37)
[2021-10-31] MEDS: AMPICILLIN/SULBACTAM SOD 3,000 MG in 0.9 % SODIUM CHLORIDE 100 ML IV SCH ×4 (05:10→23:07)
[2021-10-31 06:28] LABS: Eosinophils # (auto) 0.03 K/uL (0-0.5); Eosinophils % (auto) 0.9 %; Hematocrit (blood only) 27.2 % (37-47); Hemoglobin 8.7 g/dL (12.0-16.0); Immature Granulocytes # (auto) 0.02 K/uL (0.00-0.02); Immature Granulocytes % (auto) 0.6 %; Lymphocytes # (auto) 0.29 K/uL (1.2-3.4); Lymphocytes % (auto) 8.2 %; Mean Corpuscular Hemoglobin 30.5 pg (25-34); Mean Corpuscular Volume 95.4 fL (80-100); Mean Platelet Volume 11.1 fL (7.4-10.4); Monocytes % (auto) 8.5 %; Neutrophils # (auto) 2.88 K/uL (1.4-6.5); Neutrophils % (auto) 81.8 %; Platelet Count 121 K/uL (130-400); RDW Standard Deviation 52.2 fL (36.4-46.3); Red Blood Count 2.85 M/uL (4.2-5.4); White Blood Count 3.52 K/uL (4.8-10.8)
[2021-10-31 06:46] LABS: BUN Creatinine Ratio 41.2 (10-20); C Reactive Protein 7.46 mg/dl (0-0.5); Calcium 7.3 mg/dl (8.5-10.1); Creatinine Clr Calc Pharmacy 80.7 ml/min; Est GFR (African American) 123.7 ml/min; Est GFR (Non-African American) 106.7 ml/min; Magnesium 1.8 mg/dl (1.7-2.4); Phosphorus 2.6 mg/dl (2.5-4.9); Potassium 3.4 mmol/L (3.5-5.1)
[2021-10-31 07:23] LABS: Vitamin B12 > 1500 pg/ml (211-911)
[2021-10-31] MEDS: BUPRENORPHINE HCL 8 MG SL SCH ×3 (08:26→20:58)
[2021-10-31] MEDS: ASCORBIC ACID 500 MG TAB PO SCH ×2 (08:27→18:09)
[2021-10-31] MEDS: MULTIVITAMIN TAB PO SCH (08:27)
[2021-10-31] MEDS: LIDOCAINE 5% 1 PATCH TD SCH (08:27)
[2021-10-31] MEDS ORDERED: POTASSIUM CHLORIDE / WTR 10 MEQ/100 ML PLCT IV ONE (10:30)
[2021-10-31] MEDS: POTASSIUM CHLORIDE 40 MEQ in D5W AND NSS 1,000 ML IV SCH (13:14)
[2021-10-31] MEDS: LORazepam 0.25 MG/0.5 ML VIAL IV PRN ×2 (15:29→23:04)
[2021-10-31] MEDS: CASPOFUNGIN 50 MG in SODIUM CHLORIDE 0.9% 250 ML IV SCH (19:41)
--- NOTE | 2021-10-31 19:42 | Hospitalist Progress Note ---
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 due to fungemia - repeat fungal blood cultures drawn last pm, then caspofungin IV initiated. Day #2 of such. Waiting speciation of fungus. I spoke with [facility] by phone today and ideally the central line is taken out. I also spoke with general surgery here (Dr Harris) who can remove the line tomorrow; formal consult placed to him. Further, I spoke with radiology regarding the CT chest finding showing ?septic arthropathy of the right clavicular head vs DJD? Radiology feels that more likely those findings represent DJD. On exam she has NO tenderness/swelling/etc over the right sternoclavicular joint. CRP is only mildly high on check today. Likely to need echo to r/o SBE from the yeast. 2. acute/chronic pain - cont dilaudid 1.5mg IV q4h prn. Hold oral oxycodone. Lidoderm patch for right-sided chest wall pain from fall. 3. chronic pSBO - continue NG tube for now as per GI recs. KUB x-ray in am. 4. HOLD TPN due to #1; IVF - D5NS with KCL at 70cc/hr. Increase KCL in fluids due to Low K level today. 5. pancytopenia - tsh,b12,folate all wnl. 2nd to liver disease? 6. ?sinusitis - has had 10+ days of PO augmentin/IV unasyn; stop. 7. place wayne for #14; checked ua - for the most part unremarkable. 8. anxiety - ativan 0.25mg prn. 9. hypokalemia - increase KCL in IV fluids; repeat K in am. 10. abnormal LFTs - repeat LFTs in am; suspected to be from her TPN. updated pt's son extensively by phone total time today - 75 minutes - complex care coordination - conversation with gen surg here, radiology here, ID in [place], update to son by phone, etc Admission and Anticipated Discharge Date Admission Date: October 26, 2021 Subjective patient very anxious today she requests ativan for such she also feels it helps with her pain she is very anxious about her line potentially being infected and what the plan will be denies any significant abdominal pain today she is drinking copious amounts of fluids, eating jello, etc she has a venting NG tube in place this is draining copious liquid material no dyspnea denies any chest pain - specifically, denies any pain over the right sterno- clavicular joint does have mild right costal pain from her fall pre-admission also with ongoing left hip pain has not been out of bed much since her surgery Review of Systems Review of Systems: gen - no fevers/chills cv - no chest pain (central) pulm - no dyspnea musculo - back pain, L hip pain, etc Physical Exam Physical Exam: gen - cachectic, NAD, very anxious - even tearful at times mouth - no thrush, MMM nose - NG tube in place draining brown liquid neck - no JVD heart - RRR, s1 s2 lungs - decreased BS bases otherwise CTA b/l abd - PEG-J tube in place, BS+, NT, soft, not distended ext - very thin, pulses 2+ b/l skin - dressings intact left lateral hip; central line right upper chest clean chest - no pain, swelling, or tenderness over R sternoclavicular joint Results & Data Results & Data ([facility]) Vital Signs (Past 12 Hours) Vital Signs Temp Pulse Resp BP Pulse Ox 10/31/21 16:48 36.9 C 70 16 126/63 97 Laboratory Results Laboratory Results - last 24 hr 10/31/21 10/31/21 10/31/21 05:49 05:49 05:49 WBC 3.52 L RBC 2.85 L Hgb 8.7 L Hct 27.2 L MCV 95.4 MCH 30.5 MCHC 32.0 RDW Std Deviation 52.2 H RDW Coeff of Esau 15.0 H Plt Count 121 L MPV 11.1 H Immature Gran % (Auto) 0.6 Neut % (Auto) 81.8 Lymph % (Auto) 8.2 Troup % (Auto) 8.5 Eos % (Auto) 0.9 Baso % (Auto) 0.0 Neut # (Auto) 2.88 Lymph # (Auto) 0.29 L Troup # (Auto) 0.30 Eos # (Auto) 0.03 Baso # (Auto) 0.00 Immature Gran # (Auto) 0.02 ESR 11 Sodium 140 Potassium 3.4 L Chloride 107 Carbon Dioxide 29 Anion Gap 4 BUN 21 Creatinine 0.51 L Est Cr Clr Drug Dosing 80.7 Est GFR ( Amer) 123.7 Est GFR (Non-Af Amer) 106.7 BUN/Creatinine Ratio 41.2 H Glucose 72 Calcium 7.3 L Phosphorus 2.6 Magnesium 1.8 C-Reactive Protein 7.46 H Vitamin B12 Folate TSH 10/31/21 10/31/21 05:49 05:49 WBC RBC Hgb Hct MCV MCH MCHC RDW Std Deviation RDW Coeff of Esau Plt Count MPV Immature Gran % (Auto) Neut % (Auto) Lymph % (Auto) Troup % (Auto) Eos % (Auto) Baso % (Auto) Neut # (Auto) Lymph # (Auto) Troup # (Auto) Eos # (Auto) Baso # (Auto) Immature Gran # (Auto) ESR Sodium Potassium Chloride Carbon Dioxide Anion Gap BUN Creatinine Est Cr Clr Drug Dosing Est GFR ( Amer) Est GFR (Non-Af Amer) BUN/Creatinine Ratio Glucose Calcium Phosphorus Magnesium C-Reactive Protein Vitamin B12 > 1500 H Folate 16.70 TSH 2.544 PG Care Time/CCT Total # of Minutes Spent Total Time Spent with Patient: Total time spent is greater than 50% in coordination of care (as documented) at patient's floor/unit and/or counseling patient: Prolonged Care Time Prolonged Care Time: Yes 75 Coding Level of Care Code 32481 Subseq Hosp Care Lvl 3 (25 - SIGNIFICANT, SEPARATELY IDENTIFIABLE ) Diagnoses Fungemia B49 Abnormal LFTs R79.89 Pathological fracture of hip due to age-related osteoporosis M80.059A Chronic pain syndrome G89.4 Chronic pancreatitis K86.1 Fatty liver K76.0 On total parenteral nutrition (TPN) Z78.9 Pancytopenia D61.818 Severe protein-energy malnutrition E43 Sinusitis J32.9 Chronic pseudo-obstruction of small intestine K59.89 Radiation enterocolitis K52.[address] R93.89 Urinary retention R33.9 Additional Codes Prolonged Care Time - Prolonged Care Time: Yes ([id number]) Time Spent (min) 75
[2021-11-01] MEDS: POTASSIUM CHLORIDE 40 MEQ in D5W AND NSS 1,000 ML IV SCH ×2 (03:52→20:02)
[2021-11-01] MEDS: HYDROmorphone INJ 1 MG/ML SYRINGE IV PRN ×3 (04:00→19:25)
[2021-11-01 06:34] LABS: Albumin Level 2.2 gm/dl (3.4-5.0); BUN Creatinine Ratio 24.2 (10-20); Bilirubin Direct 2.2 mg/dl (0-0.2); Bilirubin,Total 3.7 mg/dl (0.2-1.0); Calcium 7.5 mg/dl (8.5-10.1); Creatinine Clr Calc Pharmacy 62.4 ml/min; Est GFR (African American) 113.7 ml/min; Est GFR (Non-African American) 98.1 ml/min; Magnesium 1.8 mg/dl (1.7-2.4); Potassium 3.4 mmol/L (3.5-5.1); Total Protein 5.1 gm/dl (6.0-8.3)
--- NOTE | 2021-11-01 09:26 | XRay Report ---
KUB CLINICAL HISTORY: Enteric tube placement. Bowel obstruction. FINDINGS: An AP, portable, supine view of the lower chest and abdomen is compared to study dated 10/26 and correlated with abdominal CT dated 10/26/2021. Cholecystectomy clips are noted in the right upper quadrant. An enteric tube is in place. The tip projects below the diaphragm over the distal sto mach. A percutaneous gastrostomy tube is noted. A distended loop of bowel in the pelvis measures up t o 4.5 cm. A central venous catheter is partially visualized in the chest. No evidence of intraperiton eal free air is seen. The lung bases are clear as visualized. The skeletal structures are osteopenic. There are healed left-sided rib fractures. A left hip arthroplasty is in place. IMPRESSION: 1. An enteric tube has been placed as above. 2. A dilated loop of small bowel in the pelvis is similar to previous. Electronically signed by: Zachary Storm M.D. 11/01/2021 9:25 AM
[2021-11-01] MEDS: LIDOCAINE 5% 1 PATCH TD SCH (10:20)
[2021-11-01] MEDS: ASCORBIC ACID 500 MG TAB PO SCH ×2 (10:20→18:21)
[2021-11-01] MEDS: MULTIVITAMIN TAB PO SCH (10:21)
[2021-11-01] MEDS: BUPRENORPHINE HCL 8 MG SL SCH ×3 (10:21→21:47)
[2021-11-01] MEDS ORDERED: BUPIVACAINE/EPINEPHRINE 0.25% 1:200,000 30 ML VIAL ONE (12:03)
[2021-11-01] MEDS ORDERED: fentaNYL citrate 100 MCG/2 ML VIAL IV PRN (12:34)
[2021-11-01] MEDS ORDERED: ePHEDrine sulfate 50 MG/ML AMP IV PRN (12:34)
[2021-11-01] MEDS ORDERED: HYDROmorphone INJ 2 MG/ML SYR/VIAL IV PRN (12:34)
[2021-11-01] MEDS ORDERED: ATROPINE SULFATE 0.1 MG/ML 10ML SYR IV PRN (12:34)
[2021-11-01] MEDS ORDERED: ONDANSETRON INJ 2 MG/ML 2 ML VIAL IV PRN (12:34)
--- NOTE | 2021-11-01 12:34 | Anesthesiology Consultation ---
Date of Service November 01, 2021 Assessment & Plan ASA ASA3 Proposed Anesthesia Anesthesia Type: MAC Risk / Benefits Reviewed With: PT / POA / Parent / Guardian, Accepts Plan and Informed Consent Obtained History Surgery Operation Date: 10/26/21 07:00 Proposed Procedures p Selective Nerve Root Injection - Gerard Pepper DO Operation Date: 10/27/21 07:00 Proposed Procedures p Left Cemented Hip Hemiarthroplasty - Slade Lowery MD Operation Date: 11/01/21 10:30 Proposed Procedures p Removal IV Central Catheter - Madhav Harris DO Height/Weight Height: 4 ft 11 in Weight: 42 kg Allergies Allergy/AdvReac Type Severity Reaction Status Date / Time ibuprofen Allergy Intermediate RINGING IN Verified 10/25/21 10:09 EARS,PARTIAL LOSS HEARING ketorolac Allergy Intermediate ROARING Verified 10/25/21 10:09 SOUND IN EARS NSAIDS (Non-Steroidal Allergy Intermediate RINGING IN Verified 10/25/21 10:09 Anti-Inflamma EARS zoledronic acid Allergy Intermediate FLU LIKE Verified 10/25/21 10:09 SYMPTOMS SEVERE HEADACHE vancomycin AdvReac Severe ZACHERY Verified 10/25/21 10:09 SYNDROME alprazolam AdvReac Intermediate LOSS OF Verified 10/25/21 10:09 HEARING aspirin AdvReac Intermediate RINGING IN Verified 10/25/21 10:09 EARS,PARTIAL HEARING LOSS promethazine AdvReac Mild RESTLESS Verified 10/25/21 10:09 LEGS Medications Home Medications Medication Instructions Recorded Confirmed Last Taken buprenorphine HCl 8 mg sublingual 8 mg SUBLINGUAL TID PRN 11/01/20 10/25/21 10/24/21 tablet amoxicillin 875 mg-potassium 1 tab PO BID 10 Days #20 tab 10/20/21 10/25/21 10/24/21 clavulanate 125 mg tablet Active Medications Generic Name Dose Route Start Last Admin Trade Name Freq PRN Reason Stop Dose Admin Ascorbic Acid 500 mg 10/27/21 17:37 11/01/21 10:20 Ascorbic Acid 500 Mg Tab PO 11/26/21 17:36 Not Given BIDM ARJUN Buprenorphine HCl 8 mg 10/29/21 14:00 11/01/21 10:21 Pt's Own Med: Buprenorphine Hcl 8 Mg Subl SL 11/28/21 13:59 8 mg TID ARJUN Administration Calcium Carbonate 500 mg 10/26/21 22:02 10/28/21 07:32 Calcium Carbonate 500 Mg Chewable Tab PO 11/25/21 22:01 500 mg Q4H PRN Administration Indigestion Heparin Sodium (Beef Lung) 5 ml 10/28/21 08:20 10/30/21 18:45 Heparin 10 Unit/Ml 5 Ml Flush FLUSH 11/27/21 08:19 5 ml PRN PRN Administration Flush Hydromorphone HCl 1.5 mg 10/30/21 13:43 11/01/21 04:00 Hydromorphone Inj 1 Mg/Ml Syringe IV 11/13/21 13:42 1.5 mg Q4H PRN Administration Pain Caspofungin 50 mg/ Sodium 260 mls @ 250 mls/hr 10/31/21 18:00 10/31/21 20:55 Chloride IV 11/30/21 17:59 Infused Q24H ARJUN Infusion Potassium Chloride 40 meq/ 1,020 mls @ 70 mls/hr 10/31/21 13:15 11/01/21 03:52 Dextrose/Sodium Chloride IV 11/30/21 13:14 70 mls/hr .[id number] ARJUN Administration Lidocaine 1 patch 10/30/21 13:45 11/01/21 10:20 Lidocaine 5% 1 Patch TD 11/29/21 13:44 1 patch QAM ARJUN Administration Melatonin 3 mg 10/28/21 20:33 10/30/21 00:54 Melatonin 3 Mg Tab PO 11/27/21 20:32 3 mg HS PRN Administration Sleep Miscellaneous 1 ea 10/30/21 21:00 10/31/21 20:58 Remove Lidoderm Patch N/A 11/29/21 20:59 1 ea DAILY@2100 ARJUN Administration Multivitamins 1 tab 10/28/21 09:00 11/01/21 10:21 Multivitamin Tab PO 11/27/21 08:59 Not Given QAM ARJUN Oxycodone HCl 5 mg 10/29/21 08:34 10/30/21 07:41 Oxycodone Hcl Ir 5 Mg Tab (Immediate Release) PO 11/12/21 08:33 5 mg Q6H PRN Administration Pain NPO Date Last Intake of Fluids: 11/01/21 Time Last Intake of Fluids: 10:00 Last Intake of Fluids Comment: SIP WITH MEDS Date Last Intake of Solids: 10/31/21 Time Last Intake of Solids: 18:00 Last Intake of Solids Comment: NG TUBE, CLEAR LIQUIDS Past Medical History Medical History Anxiety Chronic pain disorder Chronic pancreatitis Esophageal reflux Fatty liver Secondary to chronic TPN use Gastrointestinal tube present Gastrostomy tube in place Hearing deficit Hypersplenism Infected venous access port Iron deficiency anemia IRON INFUSIONS IN PAST Lumbar spinal stenosis Malnutrition Neutropenia On total parenteral nutrition (TPN) 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 Osteoporosis Peripheral neuropathy Radiation enterocolitis Severe protein-energy malnutrition Short bowel syndrome Small bowel obstruction Subclinical hypothyroidism Thoracic compression fracture Urinary incontinence Exercise / Class Metabolic Activity II 4-5 Yardwork/Stairs/Walk up hill Past Family History Family History Mother Diabetes Hypertension Father Family hx of colon cancer Bladder cancer Sister Alcohol abuse Deep vein thrombosis Hypertension Brother Hypertension Grandmother Hypertension Aunt Hypertension Other Cancer Past Surgical History Surgical History History of cholecystectomy History of colonoscopy History of esophagogastroduodenoscopy (EGD) History of kyphoplasty (~2017) History of spinal surgery THORACIC AND LUMBAR AREA TUMOR REMOVED 1991 + 1992 - RADIATION 5 WEEKS History of surgery PEG TUBE INSERTION (NOTHING RUNS THROUGH PEG TUBE/USED ONLY FOR RELEASING FOOD PRODUCTS D/T SMALL BOWEL OBSTRUCTION) "PT EATS FOR COMFORT" History of total left hip arthroplasty Port-A-Cath in place BRUNER Status post insertion of percutaneous endoscopic gastrostomy (PEG) tube Past Anesthesia History No Hx of Anesthesia Complications and No Family Hx of Anesthesia Complications History of PONV No Hx of PONV and No Hx of Motion Sickness Social History Smoking Status: Never smoker Do You Dip or Chew Tobacco: No Hx Alcohol Use: No Hx Substance Use: No substance use type: does not use Review of Systems denies fever/cough/ colds/ chest pain/ SOB/ ELIZABETH denies ELIZABETH Physical Exam Vital Signs Last Vital Signs Temp 37.5 C 11/01/21 12:21 Pulse 72 11/01/21 12:21 Resp 18 11/01/21 12:21 BP 126/64 11/01/21 12:21 Pulse Ox 91 11/01/21 12:21 ENMT Mouth: no TMJ abnormality and no dentition abnormality Thyromental Distance: > or= 3.5 Finger Breadths Mallampati Class: II Neck neck extension not limited Respiratory normal respiratory effort; no respiratory distress Auscultation: lungs clear to auscultation bilaterally Cardiovascular Rate/Rhythm: regular rate and regular rhythm Neurologic moves all extremities Psychiatric Orientation: alert and oriented x 3 Testing Laboratory Results 10/31/21 05:49 11/01/21 05:52 PT 11.8 Seconds (9.0-12.0) 10/27/21 06:36 INR 1.2 (0.9-1.1) H 10/27/21 06:36 APTT 29.3 Seconds (21.0-31.0) 10/27/21 06:36 Urine Color Dark Yellow 10/30/21 16:40 Urine Appearance Clear (Clear) 10/30/21 16:40 Urine pH 7.0 (4.5-7.5) 10/30/21 16:40 Ur Specific [place] 1.028 (1.000-1.030) 10/30/21 16:40 Urine Protein Trace (Negative) H 10/30/21 16:40 Urine Glucose (UA) Negative (Negative) 10/30/21 16:40 Urine Ketones Negative (Negative) 10/30/21 16:40 Urine Nitrite Negative (Negative) 10/30/21 16:40 Ur Leukocyte Esterase Negative (Negative) 10/30/21 16:40 Urine WBC (Auto) 1-5 /hpf (0-5) 10/30/21 16:40 Urine RBC (Auto) 0-4 /hpf (0-4) 10/30/21 16:40 U Hyaline Cast (Auto) 1-5 /lpf (0-5) 10/30/21 16:40 U Epithel Cells (Auto) 10-20 /lpf (0-5) H 10/30/21 16:40 Urine Bacteria (Auto) Negative (Negative) 10/30/21 16:40 Blood Type A Positive 10/26/21 04:55 Antibody Screen NEGATIVE 10/26/21 04:55 10/30/21 18:41 Fungal Smear - Final Blood 10/26/21 08:49 Aerobic Blood Culture - Final Blood No growth in Aerobic bottle after 5 days. Anaerobic Blood Culture - Final No growth in Anaerobic bottle after 5 days. 10/26/21 08:54 Aerobic Blood Culture - Final Blood No growth in Aerobic bottle after 5 days. Anaerobic Blood Culture - Preliminary Yeast 10/26/21 09:00 Urine Culture - Final Urine,Indwelling Cath No growth - less than 1,000 colonies/mL. Electrocardiogram Date: 10/25/21 Chest X-Ray Date: 10/25/21 IMPRESSION: 1. There is a decreased inspiratory effort with otherwise no acute chest disease. Echocardiogram Date: 10/10/18 LV systolic function is normal Grade 1 diastolic dysfunction RVSP is normal IVC is mildly dilated
--- NOTE | 2021-11-01 12:38 | History & Physical Report ---
Date of Service November 01, 2021 Assessment & Plan (1) Fungemia: Plan: I agree the catheter should be removed. We discussed the risks which include bleeding infection vascular injury etc. We will send the tip for culture. Answered all of her questions. Patient agreeable. We will proceed today with removal of right internal jugular tunneled catheter. (2) Chronic pain syndrome: (3) Cachexia: (4) On total parenteral nutrition (TPN): Admission and Anticipated Discharge Date Admission Date: October 26, 2021 History of Present Illness Primary Care Provider: Kenney Carpenter MD 56-year-old female with a chronic bowel obstruction due to radiation in the past for spinal tumors. She is on chronic TPN. She currently has fungemia thought to be from line infection. Allergies Allergy/AdvReac Type Severity Reaction Status Date / Time ibuprofen Allergy Intermediate RINGING IN Verified 10/25/21 10:09 EARS,PARTIAL LOSS HEARING ketorolac Allergy Intermediate ROARING Verified 10/25/21 10:09 SOUND IN EARS NSAIDS (Non-Steroidal Allergy Intermediate RINGING IN Verified 10/25/21 10:09 Anti-Inflamma EARS zoledronic acid Allergy Intermediate FLU LIKE Verified 10/25/21 10:09 SYMPTOMS SEVERE HEADACHE vancomycin AdvReac Severe ZACHERY Verified 10/25/21 10:09 SYNDROME alprazolam AdvReac Intermediate LOSS OF Verified 10/25/21 10:09 HEARING aspirin AdvReac Intermediate RINGING IN Verified 10/25/21 10:09 EARS,PARTIAL HEARING LOSS promethazine AdvReac Mild RESTLESS Verified 10/25/21 10:09 LEGS Home Medications Medication Instructions Recorded Confirmed Type buprenorphine HCl 8 mg sublingual 8 mg SUBLINGUAL TID PRN 11/01/20 10/25/21 History tablet amoxicillin 875 mg-potassium 1 tab PO BID 10 Days #20 tab 10/20/21 10/25/21 Rx clavulanate 125 mg tablet Past Med/Surg History Medical History Anxiety Chronic pain disorder Chronic pancreatitis Esophageal reflux Fatty liver Secondary to chronic TPN use Gastrointestinal tube present Gastrostomy tube in place Hearing deficit Hypersplenism Infected venous access port Iron deficiency anemia IRON INFUSIONS IN PAST Lumbar spinal stenosis Malnutrition Neutropenia On total parenteral nutrition (TPN) 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 Osteoporosis Peripheral neuropathy Radiation enterocolitis Severe protein-energy malnutrition Short bowel syndrome Small bowel obstruction Subclinical hypothyroidism Thoracic compression fracture Urinary incontinence Surgical History History of cholecystectomy History of colonoscopy History of esophagogastroduodenoscopy (EGD) History of kyphoplasty (~2018) History of spinal surgery THORACIC AND LUMBAR AREA TUMOR REMOVED 1991 + 1992 - RADIATION 5 WEEKS History of surgery PEG TUBE INSERTION (NOTHING RUNS THROUGH PEG TUBE/USED ONLY FOR RELEASING FOOD PRODUCTS D/T SMALL BOWEL OBSTRUCTION) "PT EATS FOR COMFORT" History of total left hip arthroplasty Port-A-Cath in place BRUNER Status post insertion of percutaneous endoscopic gastrostomy (PEG) tube Family History Mother Diabetes Hypertension Father Family hx of colon cancer Bladder cancer Sister Alcohol abuse Deep vein thrombosis Hypertension Brother Hypertension Grandmother Hypertension Aunt Hypertension Other Cancer Social History Smoking Status: Never smoker Tobacco Type: Cigarettes Age Started Using Tobacco: 12; Age Quit Using Tobacco: 21; Second Hand Exposure: No; Do You Dip or Chew Tobacco: No; Hx Alcohol Use: No Hx Substance Use: No Preferred Language: Mongolian Communication Ability: Effective Visual Impairment: No Limitations Baggage Inspector Required: No Beliefs That Will Affect Care: None marital status: Current Living Situation: Spouse current occupational status: disabled Other Information That Helps Us Care for You: No Feels Safe at Home: Yes Safety Concerns: Feels Safe At This Time caffeine: Yes Dental Care, Regularly: Yes Physical Activity Frequency: Does not Exercise Seatbelt Use: always Sunscreen Use: No Assistive Devices: Walker Review of Systems All systems reviewed & are unremarkable except as noted in HPI & below Physical Exam Constitutional: Alert and oriented. Cachectic. Eyes: PERRL, conjunctivae normal, anicteric sclerae EOM intact bilaterally ENMT: external ear and nose normal, oropharynx normal Ears: no hearing impairment Neck: trachea midline, no thyromegaly Respiratory: normal respiratory effort; no respiratory distress and does not use accessory muscles Cardiovascular: Rate/Rhythm: regular rate and regular rhythm Right internal jugular tunneled catheter in place. Skin: no rashes, warm and dry Psychiatric: Orientation: alert, oriented x 3 and cooperative Results & Data ([facility]) Vital Signs (Past 12 Hours) Vital Signs Temp Pulse Pulse Resp BP Pulse Ox 11/01/21 12:21 37.5 C 72 18 126/64 91 11/01/21 07:05 36.9 C 66 16 100/54 L 95 Code Status & VTE Plan VTE Prophylaxis Plan VTE Prophylaxis will be ordered: Yes
[2021-11-01] MEDS ORDERED: PROPOFOL IV EMULSION 10 MG/ML 20 ML VIAL IV ONE (12:59)
[2021-11-01] MEDS ORDERED: LIDOCAINE 2% 2 ML VIAL/AMP(20MG/ML) INFIL ONE (12:59)
[2021-11-01] MEDS ORDERED: SODIUM CHLORIDE 0.9% INJ 10 ML VIAL ONE (13:05)
[2021-11-01] MEDS ORDERED: ceFAZolin 330 MG/ML 1 GM VIAL ONE (13:05)
--- NOTE | 2021-11-01 13:36 | Operative Report ---
PG Post Operative Report Pre & Post Diagnosis Operation Date: 10/26/21 07:00 <No data on this case meets the specified criteria> Operation Date: 10/27/21 07:00 Pre-Op Diagnosis: Left displaced femoral neck fracture Post-Op Diagnosis: Left displaced femoral neck fracture Operation Date: 11/01/21 10:30 Pre-Op Diagnosis: (1) Fungemia: (2) Chronic pain syndrome: (3) Cachexia: (4) On total parenteral nutrition (TPN): Post-Op Diagnosis: (1) Fungemia: (2) Chronic pain syndrome: (3) Cachexia: (4) On total parenteral nutrition (TPN): I identified the patient and participated in the time-out.: Yes Procedure Operation Date: 10/26/21 07:00 Actual Procedures p Selective Nerve Root Injection - Gerard Pepper DO Operation Date: 10/27/21 07:00 Actual Procedures p Left Cemented Hip Hemiarthroplasty(Left) - Slade Lowery MD Operation Date: 11/01/21 10:30 Actual Procedures p Removal IV Central Catheter(Not Applicable) - Madhav Harris DO Surgeon Madhav Harris DO Live In Housekeeper Eleuterio Osullivan PA-C Estimated Blood Loss 3 Findings Consistent with Post-Op Diagnosis Specimens tip of catheter for culture Anesthesia Type General Complications none Disposition Accompanied Patient To Recovery: Yes Description of Procedure After informed consent was obtained the patient was taken to the operating room. IV sedation was administered by anesthesia and titrated to effect. The area around the insertion site of her right internal jugular catheter was sterilely prepped and draped in usual fashion. Quarter percent Marcaine with epinephrine was injected around the insertion site. I then made a vertical incision directly over the visible catheter with a 15 blade scalpel. I used traction countertraction and small amounts of cautery to free up scar tissue around the cuff. Eventually after freeing up the cuff I was then able to easily withdraw the entire catheter and held pressure on the internal jugular for several minutes. We cut the tip of the catheter and sent to the lab for Gram stain and culture. The wound was irrigated and closed using 4-0 Monocryl. Dermabond glue was used as dressing. The patient was awakened and transferred recovery in stable condition. I attest to the content of the Intraoperative Record and any orders documented therein. Any exceptions are noted below.
--- NOTE | 2021-11-01 14:10 | Anesthesiology Progress Note ---
Date of Service November 01, 2021 Anesthesia Post Procedure Vital Signs Vital Signs: Temp Pulse Pulse Pulse Resp BP Pulse Ox 11/01/21 14:00 67 19 109/62 95 11/01/21 13:50 36.9 C 82 20 108/62 100 11/01/21 13:40 80 16 110/68 100 11/01/21 13:30 81 17 110/58 L 100 11/01/21 13:21 37.2 C 71 12 97/53 L 100 11/01/21 12:21 37.5 C 72 18 126/64 91 11/01/21 07:05 36.9 C 66 16 100/54 L 95 10/31/21 23:00 36.9 C 67 16 128/69 97 10/31/21 16:48 36.9 C 70 16 126/63 97 Pain Intensity Hip: Pain Intensity: 8 Right Neck: Pain Intensity: 5 Transfer of Care Handoff Completed per policy Notes Mental Status: alert / awake / arousable and participated in evaluation Patient Amnestic to Procedure: Yes Nausea / Vomiting: adequately controlled Pain: adequately controlled Airway Patency, RR, SpO2: stable & adequate BP & HR: stable & adequate Hydration State: stable & adequate Anesthetic Complications: no major complications apparent and Pt Satisfied with anesthetic care
[2021-11-01] MEDS: CASPOFUNGIN 50 MG in SODIUM CHLORIDE 0.9% 250 ML IV SCH (18:24)
--- NOTE | 2021-11-01 20:03 | Hospitalist Progress Note ---
Date of Service November 01, 2021 Assessment & Plan (1) Fungemia: (2) Abnormal LFTs: (3) Pathological fracture of hip due to age-related osteoporosis: Plan: left (4) Chronic pain syndrome: (5) Chronic pancreatitis: (6) Fatty liver: (7) On total parenteral nutrition (TPN): (8) Pancytopenia: (9) Severe protein-energy malnutrition: (10) Sinusitis: (11) Chronic pseudo-obstruction of small intestine: (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: (13) Abnormal chest CT: (14) Urinary retention: Plan: 1. fungemia - repeat fungal blood cultures still pending. 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 Cont caspofungin - day #3. I spoke with microbiology - they are sending the culture out for final ID and sensitivities. Will need echo to r/o valvular vegetations. Central line to be removed today; tip to be cultured. Continue to hold TPN while awaiting blood to become sterile. I spoke with radiology yesterday - VERY LOW suspicion for right sternoclavicular septic arthritis or osteomyelitis; CT chest findings more c/w DJD. Further, CRP is only mildly elevated; sed rate only 11. Lastly, I spoke with Dr Lowery from orthopedics. Informed him that the left hip replacement was completed while having active fungemia. He is aware, no new recommendations at this time. 2. acute/chronic pain - cont dilaudid 1.5mg IV q4h prn. Hold oral oxycodone. Lidoderm patch for right-sided chest wall pain from fall. 3. chronic pSBO - continue NG tube for now as per GI recs. KUB x-ray today very stable. Suspect we can d/c the NG tube soon and revert back to using the PEG-J. 4. HOLD TPN due to #1; IVF - D5NS with KCL at 70cc/hr. Will need new central line ONCE blood is sterile and safe to place new one, likely in a few days. Will need to find a provider to place this; Dr Harris stated that given her frequent lines & vascular anatomy he would decline to place this himself. 5. pancytopenia - tsh,b12,folate all wnl. 2nd to liver disease? Counts low but stable/acceptable. 6. ?sinusitis - had had 10+ days of PO augmentin/IV unasyn; abx stopped. 7. anxiety - ativan 0.25mg prn. 8. hypokalemia - cont KCL 40meq in IV fluids; repeat BMP am. Mag noted to be normal. 9. abnormal LFTs - repeat LFTs trending down slowly; felt to be due to TPN- induced cholestasis. Repeat in 48 hours. 10. s/p ORIF of L hip fracture - doing well from ortho standpoint; cont pain control. Full WBAT. PT, OT. updated pt's son extensively by phone over the weekend Admission and Anticipated Discharge Date Admission Date: October 26, 2021 Subjective patient to have central line removed by gen surg today no acute issues overnight left hip pain remains - no better/no worse no abd pain still some "leaking" around her PEG-J mild drainage/"green" material as well Review of Systems Review of Systems: gen - no fevers/no chills CV - no cp or orthopnea pulm - no cough, no dyspnea GI - does not pass flatus/stool; no pain - wayne draining clear yellow urine Physical Exam Physical Exam: gen - cachectic, NAD, not anxious as yesterday mouth - no thrush, MMM nose - NG tube in place draining brown liquid neck - no JVD heart - RRR, s1 s2, 1/6 MAICOL LSB lungs - decreased BS right base otherwise CTA b/l abd - PEG-J tube in place, BS+, NT, soft, not distended; PEG-J insertion site with pink granulation/scar tissue but otherwise no signs of cellulitis/infection ext - very thin, pulses 2+ b/l skin - dressings intact left lateral hip; central line right upper chest clean Results & Data Results & Data ([facility]) Vital Signs (Past 12 Hours) Vital Signs Temp Pulse Pulse Pulse Resp BP Pulse Ox 11/01/21 16:47 36.9 C 72 16 133/66 94 11/01/21 16:03 80 16 116/69 100 11/01/21 15:10 36.9 C 81 16 128/63 98 11/01/21 14:42 36.9 C 87 16 106/58 L 97 11/01/21 14:25 81 14 106/63 94 11/01/21 14:10 70 20 110/58 L 94 11/01/21 14:00 67 19 109/62 95 11/01/21 13:50 36.9 C 82 20 108/62 100 11/01/21 13:40 80 16 110/68 100 11/01/21 13:30 81 17 110/58 L 100 11/01/21 13:21 37.2 C 71 12 97/53 L 100 11/01/21 12:21 37.5 C 72 18 126/64 91 Laboratory Results K 3.4 Cr wnl PG Care Time/CCT Total # of Minutes Spent Total Time Spent with Patient: Total time spent is greater than 50% in coordination of care (as documented) at patient's floor/unit and/or counseling patient: Coding Level of Care Code 24810 Subseq Hosp Care Lvl 3 Diagnoses Fungemia B49 Abnormal LFTs R79.89 Pathological fracture of hip due to age-related osteoporosis M80.059A Chronic pain syndrome G89.4 Chronic pancreatitis K86.1 Fatty liver K76.0 On total parenteral nutrition (TPN) Z78.9 Pancytopenia D61.818 Severe protein-energy malnutrition E43 Sinusitis J32.9 Chronic pseudo-obstruction of small intestine K59.89 Radiation enterocolitis K52.[address] R93.89 Urinary retention R33.9
[2021-11-01] MEDS: LORAZEPAM 0.25 MG IV PRN (22:50)
[2021-11-02] MEDS: HYDROmorphone INJ 1 MG/ML SYRINGE IV PRN ×3 (02:26→17:46)
[2021-11-02] MEDS: BUPRENORPHINE HCL 8 MG SL SCH ×3 (08:21→21:05)
[2021-11-02] MEDS: ASCORBIC ACID 500 MG TAB PO SCH ×2 (08:21→17:45)
[2021-11-02] MEDS: MULTIVITAMIN TAB PO SCH (08:21)
[2021-11-02 08:30] LABS: Hematocrit (blood only) 29.6 % (37-47); Hemoglobin 9.5 g/dL (12.0-16.0); Mean Corpuscular Hemoglobin 30.4 pg (25-34); Mean Corpuscular Hgb Conc 32.1 g/dL (32-36); Mean Corpuscular Volume 94.9 fL (80-100); Platelet Count 154 K/uL (130-400); RDW Coefficient of Variation 15.1 % (11.5-14.5); RDW Standard Deviation 51.8 fL (36.4-46.3); Red Blood Count 3.12 M/uL (4.2-5.4); White Blood Count 2.42 K/uL (4.8-10.8)
[2021-11-02] MEDS: LIDOCAINE 5% 1 PATCH TD SCH (08:30)
[2021-11-02 08:54] LABS: BUN Creatinine Ratio 21.5 (10-20); Calcium 7.6 mg/dl (8.5-10.1); Creatinine Clr Calc Pharmacy 63.3 ml/min; Est GFR (African American) 114.2 ml/min; Est GFR (Non-African American) 98.6 ml/min; Potassium 3.5 mmol/L (3.5-5.1)
--- NOTE | 2021-11-02 10:04 | Surgery Progress Note ---
Date of Service November 02, 2021 Assessment & Plan (1) Fungemia: Plan: POD#1 central catheter removal OR cultures from catheter tip pending Wound looks well, skin glue over incision Continues on IV caspo, ID consult pending Apparently has history of frequent lines, therefore consideration for line to be replaced elsewhere We will sign off, please call with any questions/concerns Admission and Anticipated Discharge Date Admission Date: October 26, 2021 Subjective Patient with no complaints after central line removal. Only mild discomfort to palpation of surgical site. Physical Exam Physical Exam: awake/alert Chest (Breasts): Additional Comments: R chest wound with skin glue over incision, mild surrounding bruising Results & Data ([facility]) Vital Signs (Past 12 Hours) Vital Signs Temp Pulse Resp BP Pulse Ox 11/02/21 07:09 37.1 C 76 16 128/67 94 PG Care Time/CCT Total # of Minutes Spent Total Time Spent with Patient: Total time spent is greater than 50% in coordination of care (as documented) at patient's floor/unit and/or counseling patient: Coding Level of Care Code None Diagnoses Fungemia B49
[2021-11-02] MEDS: POTASSIUM CHLORIDE 40 MEQ in D5W AND NSS 1,000 ML IV SCH (10:38)
[2021-11-02] MEDS: LORAZEPAM 0.25 MG IV PRN ×2 (13:23→22:12)
--- NOTE | 2021-11-02 15:08 | Gastroenterology Progress Note ---
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 She received TPN nutrition. She experienced acute on chronic ileus after surgery likely secondary to narcotics. She seems to be back to her normal. Abd is small, soft, non-distended, with normal BS. At this point, the NG is not medically necessary and she would likely do well if the NG were removed. The pt seem reluctant. It is reasonable to continue for another day or so. OK to remove NG. Would minimize narcotics. 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 TPN use, history of TPN induced cholestasis admitted w/ femoral neck fracture - GI evaluated last week for partial SBO. Recommended to minimize narcotic use, continue PEG for venting. GI asked today to provide opinion regarding - is it appropriate to remove the NG tube that was placed last week. Pt drinking large amts of water/clear liquids that are then suctioned through the NG. When clamped tells us she has had mild aspirates, mild abdominal bloatin g, no vomiting. She tells us that she is hesitant to remove the NG because she has to push forcefully on the stomach to aspirate fluid from the stomach through the PEG and that she has even caused rib fractures by her pushing. Review of Systems Review of Systems: ROS: Gen: + weakness, No fevers, + chronically underwent Eyes: No eye redness, or pain, no recent vision changes Resp: No SOB, no cough Cardio: No palpitations/irregular beats, no chest pain GI: See HPI, otherwise (-) : Denies pain on urination Skin: No jaundice, itching or new rashes Physical Exam Constitutional: well developed, + ill appearing, + frail appearing and cooperative Eyes: PERRL, conjunctivae normal, anicteric sclerae Respiratory: normal respiratory effort, lungs clear to auscultation Cardiovascular: RRR, no murmur, no edema Gastrointestinal (Abdomen): Inspection/Auscultation: abdomen normal to inspection and normal bowel sounds; abdomen not distended and no abdominal edema Percussion/Palpation: + abdomen tender (diffusely) and abdomen soft PEG tube in place, no surrounding skin redness and no leaking. NG tube in place draining clear liquids (currently a yellow color) Skin: no rashes, warm and dry normal turgor and + pallor Neurologic: PERRL, EOMI, accommodation nl, no face palsy, no dysarthria awake; not confused Psychiatric: A+Ox3, euthymic affect Lymphatic: no cervical or axillary lymphadenopathy Results & Data ([facility]) Vital Signs (Past 12 Hours) Vital Signs Temp Pulse Resp BP Pulse Ox 11/02/21 13:59 36.6 C 75 16 129/76 93 11/02/21 07:09 37.1 C 76 16 128/67 94 Laboratory Results WBC 2, Hb 9.5, Hct 29, Plts 154, Na 142, K 3.5, Cl 108, CO2 30, BUN 14, Cr 0.65, glucose 82. Diagnostic Findings CTAP w IV on 10/26/21: 1. Difficult examination to interpret due to significant streak and motion artifact, as well as by patient cachexia and a paucity of intraperitoneal fat. 2. There is an acute to subacute appearing impacted fracture of the left femoral neck. 3. There are focally dilated loops of small bowel in the pelvis with associated wall thickening and hyperemia. This has been seen on several prior abdominal CT scans, and favors a chronic partial small bowel obstruction. There are 2 apparent transition points suggested involving the small bowel in the pelvis, and an internal hernia or closed loop type obstruction would be impossible to exclude. Clinical correlation will be essential. 3. No intraperitoneal free air is identified. There is no pneumatosis intestinal is or portal venous gas. 4. There is a small volume of abdominopelvic ascites. 5. A Juarez catheter is in place and the bladder is distended with gas. 6. Enteric and percutaneous gastrostomy tubes are in place as above. 7. Trace pleural effusions. KUB 10/26/21: 1. An enteric tube has been placed as above. 2. A dilated loop of small bowel in the pelvis is similar to previous.
--- NOTE | 2021-11-02 16:08 | XCELERA ---
[id number]
[2021-11-02] MEDS: CASPOFUNGIN 50 MG in SODIUM CHLORIDE 0.9% 250 ML IV SCH (18:49)
--- NOTE | 2021-11-02 19:41 | Hospitalist Progress Note ---
Date of Service November 02, 2021 Assessment & Plan (1) Fungemia: (2) Abnormal LFTs: (3) Pathological fracture of hip due to age-related osteoporosis: Plan: left (4) Chronic pain syndrome: (5) Chronic pancreatitis: (6) Fatty liver: (7) On total parenteral nutrition (TPN): (8) Pancytopenia: (9) Severe protein-energy malnutrition: (10) Sinusitis: (11) Chronic pseudo-obstruction of small intestine: (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: (13) Abnormal chest CT: (14) Urinary retention: Plan: 1. fungemia - repeat fungal blood cultures still pending but negative since 10/30. 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 Cont caspofungin - day #4. I spoke with microbiology - they sent the culture out for final ID and sensitivities. TTE without valvular vegetations. POD #1 - s/p removal central line, tip culture pending. Continue to hold TPN while awaiting blood to become sterile. Could potentially start PPN soon. I spoke with radiology earlier this week - VERY LOW suspicion for right sternoclavicular septic arthritis or osteomyelitis; CT chest findings more c/w DJD. Further, CRP only mildly elevated; sed rate only 11. Lastly, I spoke with Dr Lowery from orthopedics. Informed him that the left hip replacement was completed while having active fungemia. He is aware, no new recommendations at this time. VERY low risk for seeding from such. [facility] consultation completed today - awaiting recs. 2. acute/chronic pain - cont dilaudid 1.5mg IV q4h prn. Hold oral oxycodone. Lidoderm patch for right-sided chest wall pain from fall. 3. chronic pSBO - last KUB x-ray very stable. Suspect we can d/c the NG tube next 24 hours. Appreciate GI input. 4. HOLD TPN due to #1; IVF - D5NS with KCL at 70cc/hr. Will need new central line ONCE blood is sterile and safe to place new one, likely in a few days. Will need to find a provider to place this. Dr Lopez? 5. pancytopenia - tsh,b12,folate all wnl. 2nd to liver disease? Counts low but stable/acceptable. 6. ?sinusitis - had had 10+ days of PO augmentin/IV unasyn; abx stopped. 7. anxiety - ativan 0.25mg prn. 8. hypokalemia - cont KCL 40meq in IV fluids; repeat BMP am. Mag noted to be normal but also repeat in am. 9. abnormal LFTs - repeat LFTs trending down slowly; felt to be due to TPN- induced cholestasis. Repeat in 48 hours. 10. s/p ORIF of L hip fracture - doing well from ortho standpoint; cont pain control. Full WBAT. PT, OT. updated pt's son extensively by phone again today Admission and Anticipated Discharge Date Admission Date: October 26, 2021 Subjective no new complaints today had ID consultation/telehealth this am was about to have her echo upon my arrival tolerating liquids - which are being suctioned via NG tube in place [facility] DEL CASTILLO saw patient - ok with NG tube removal as she has PEG-J (which can be used to vent her stomach) patient anxious because of all the issues going on Review of Systems Review of Systems: gen - no fevers/chills; energy decent; did sleep better last pm pulm - no cough or dyspnea CV - no c/o chest wall pain today musculo - left hip pain improved GI - no pain Physical Exam Physical Exam: gen - cachectic, NAD mouth - no thrush, MMM nose - NG tube in place draining brown liquid neck - no JVD heart - RRR, s1 s2, 1/6 MAICOL LSB lungs - CTA b/l abd - PEG-J tube in place, BS+, NT, soft, not distended; PEG-J insertion site with pink granulation/scar tissue but otherwise no signs of cellulitis/infection ext - thin, no edema, pulses 2+ b/l skin - dressings intact left lateral hip; previous central line site on chest clean Results & Data Results & Data ([facility]) Vital Signs (Past 12 Hours) Vital Signs Temp Pulse Resp BP Pulse Ox 11/02/21 13:59 36.6 C 75 16 129/76 93 Laboratory Results Laboratory Results - last 24 hr 11/02/21 11/02/21 07:39 07:39 WBC 2.42 L RBC 3.12 L Hgb 9.5 L Hct 29.6 L MCV 94.9 MCH 30.4 MCHC 32.1 RDW Std Deviation 51.8 H RDW Coeff of Esau 15.1 H Plt Count 154 MPV 11.0 H Sodium 142 Potassium 3.5 Chloride 108 H Carbon Dioxide 30 Anion Gap 4 BUN 14 Creatinine 0.65 Est Cr Clr Drug Dosing 63.3 Est GFR ( Amer) 114.2 Est GFR (Non-Af Amer) 98.6 BUN/Creatinine Ratio 21.5 H Glucose 82 Calcium 7.6 L Diagnostic Findings 10/30 repeat blood cx thus far neg echo without signs of endocarditis PG Care Time/CCT Total # of Minutes Spent Total Time Spent with Patient: Total time spent is greater than 50% in coordination of care (as documented) at patient's floor/unit and/or counseling patient: Coding Level of Care Code 65328 Subseq Hosp Care Lvl 3 Diagnoses Fungemia B49 Abnormal LFTs R79.89 Pathological fracture of hip due to age-related osteoporosis M80.059A Chronic pain syndrome G89.4 Chronic pancreatitis K86.1 Fatty liver K76.0 On total parenteral nutrition (TPN) Z78.9 Pancytopenia D61.818 Severe protein-energy malnutrition E43 Sinusitis J32.9 Chronic pseudo-obstruction of small intestine K59.89 Radiation enterocolitis K52.[address] R93.89 Urinary retention R33.9
[2021-11-02] MEDS ORDERED: buprenorphine HCL 8 MG SUBL SL SCH (21:00)
[2021-11-03] MEDS: HYDROmorphone INJ 1 MG/ML SYRINGE IV PRN ×3 (00:41→17:35)
[2021-11-03] MEDS: POTASSIUM CHLORIDE 40 MEQ in D5W AND NSS 1,000 ML IV SCH ×2 (00:41→13:35)
[2021-11-03] MEDS: LORAZEPAM 0.25 MG IV PRN ×2 (03:58→12:05)
[2021-11-03] MEDS: BUPRENORPHINE HCL 8 MG SL SCH ×3 (08:09→21:48)
[2021-11-03] MEDS: ASCORBIC ACID 500 MG TAB PO SCH ×2 (08:10→17:34)
[2021-11-03] MEDS: MULTIVITAMIN TAB PO SCH (08:10)
[2021-11-03] MEDS: LIDOCAINE 5% 1 PATCH TD SCH (08:11)
[2021-11-03 08:18] LABS: BUN Creatinine Ratio 18.3 (10-20); Calcium 7.8 mg/dl (8.5-10.1); Est GFR (African American) 109.6 ml/min; Est GFR (Non-African American) 94.6 ml/min; Magnesium 1.7 mg/dl (1.7-2.4); Potassium 3.4 mmol/L (3.5-5.1)
[2021-11-03] MEDS ORDERED: MAGNESIUM SULFATE / D5W 1 GM/100 ML BAG IV ONE (11:00)
[2021-11-03] MEDS ORDERED: DEXTROSE 10% 1,000 ML IV PRN ×2 (11:04→11:52)
--- NOTE | 2021-11-03 12:31 | Pharmacy Report ---
PHA: Parenteral Nutrition Con - Date of Service November 03, 2021 - Scope Pharmacy was consulted on 10/25/21 to manage parenteral nutrition orders for this patient. - Subjective The patient is currently on day 1 of peripheral parenteral nutrition. Patient is on chronic TPN, but requiring temporary PPN until replacement of central line can be achieved. - Objective Height: 4 ft 11 in Weight: 42 kg Diet: Clear Liquid Intake & Output (24hrs):: Intake & Output 11/01/21 11/02/21 11/03/21 11/04/21 06:59 06:59 06:59 06:59 Intake Total 2423.834 / 2423.834 2554.834 / 2554.834 3503.5 / 3503.5 Output Total 5500 / 5500 3300 / 3300 4525 / 4525 Balance -3076.166 / -3076.166 -745.166 / -745.166 -1021.5 / -1021.5 Weight 42 kg 42 kg Laboratory Data (Last 24 Hr):: 11/03/21 07:36 Sodium 141 Potassium 3.4 L Chloride 103 Carbon Dioxide 34 H BUN 13 Creatinine 0.71 Glucose 90 Calcium 7.8 L Phosphorus 3.0 Magnesium 1.7 Nutrition Assessment:: Please refer to the Notes section of the EMR for the most recent script developer note. - Assessment * TPN has been on hold since Monday10/30/21 secondary to fungemia and subsequent removal of central line * Patient started on caspofungin, line removed yesterday 11/01 * Central line likely to be replaced later in week * While TPN has been off, patient has received IV fluids in the form of D5/NSS w/ 40 KCl @70 mL/hr * Discussed with registered dietitian and will utilize 4.25/5 Clinimix ~@60 mL/hr today + 50 g of lipids (~twice weekly) * Electrolytes largely stable, will increase potassium content relative to IV fluids yesterday and will favor chloride>acetate * PPN to be infused over 24 hours - Plan For day 1 of peripheral PN administration, the following will be ordered: Macronutrients Amino acids 61 grams/day Dextrose 72 grams/day Lipids 50 grams/day Micronutrients Sodium chloride 60 mEq Potassium phosphate 30 mMol Potassium chloride 40 mEq Magnesium sulfate 8.12 mEq Calcium gluconate 4.65 mEq Multivitamins 10 mL Trace Elements 1 mL Additional additives: famotidine 20 mg Total volume 1769 mL (including lipids) to be infused over 24 hrs (6 hrs for lipids) will provide 990 kcal/day Final osmolarity 832 mOsm/L (maximum for PPN is 900 mOsm/L) Labs, as indicated, will be ordered per protocol Pharmacy will continue to follow and adjust parenteral nutrition orders on a daily basis. Thank you for allowing us to participate in the care of this patient.
--- NOTE | 2021-11-03 13:22 | XRay Report ---
XR chest 1V portable HISTORY: Evaluate NG tube placement. PPN INITIATION TODAY COMPARISON: Chest 10/25/2021. FINDINGS: No pneumothorax. The heart is normal in size. Nasogastric tube terminates below the diaphra gm. The tip is not included on this study. A gastrostomy tube is also partially imaged on this study. There are old, healed left-sided rib fractures. Hazy appearance to the right lung base. This may be due to a small right pleural effusion or developing airspace opacity. Left lung is clear. The thoraci c spine vertebroplasty again noted. IMPRESSION: 1. Nasogastric tube terminates below the diaphragm. The tip is not included on this study. 2. Hazy appearance to the right lung base may be due to a small right pleural effusion or developing airspace opacity. ACT 112: Negative or not required by law. Electronically signed by: Arcadio Castaneda M.D. 11/03/2021 1:21 PM
[2021-11-03] MEDS ORDERED: AMINO ACIDS 4.25% IV SCH (16:00)
[2021-11-03] MEDS ORDERED: IV FLUIDS: STOP ORDER ONE (16:00)
[2021-11-03] MEDS ORDERED: PERIPHERAL TPN IV SCH (16:00)
[2021-11-03] MEDS ORDERED: CLINOLIPID 20% IV FAT EMULSION 250 ML IV SCH (16:00)
[2021-11-03] MEDS ORDERED: D5W IV SCH (16:00)
[2021-11-03] MEDS: CASPOFUNGIN 50 MG in SODIUM CHLORIDE 0.9% 250 ML IV SCH (17:36)
--- NOTE | 2021-11-03 20:48 | Hospitalist Progress Note ---
Date of Service November 03, 2021 Assessment & Plan (1) Fungemia: (2) Abnormal LFTs: (3) Pathological fracture of hip due to age-related osteoporosis: Plan: left (4) Chronic pain syndrome: (5) Chronic pancreatitis: (6) Fatty liver: (7) On total parenteral nutrition (TPN): (8) Pancytopenia: (9) Severe protein-energy malnutrition: (10) Sinusitis: (11) Chronic pseudo-obstruction of small intestine: (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: (13) Abnormal chest CT: (14) Urinary retention: Plan: 1. fungemia - repeat fungal blood cultures still pending but negative since 10/30. 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 Cont caspofungin - day #5. Blood culture has been sent out for final ID and sensitivities. TTE without valvular vegetations. [facility] is advising VAL[facility], however. POD #2 - s/p removal central line, tip culture indeed with yeast. Continue to hold TPN while awaiting blood to become sterile. IV team was asked to assess her peripheral IV today - unfortunately it is likely not adequate for PPN administration. Thus, cont IV fluids. I spoke with radiology earlier this week - VERY LOW suspicion for right sternoclavicular septic arthritis or osteomyelitis; CT chest findings more c/w DJD. Further, CRP only mildly elevated; sed rate only 11. Lastly, I spoke with Dr Lowery from orthopedics. Informed him that the left hip replacement was completed while having active fungemia. He is aware, no new recommendations at this time. VERY low risk for seeding from such. Patient will need 14 days of IV caspofungin for her fungemia; if VALENTINA is + for SBE then 6 weeks. 2. acute/chronic pain - cont dilaudid 1.5mg IV q4h prn. Hold oral oxycodone. Lidoderm patch for right-sided chest wall pain from fall. Informed patient we will need to start weaning this soon. Remains on her chronic subutex 8mg TID. Pain management saw patient earlier in the stay. 3. chronic pSBO - last KUB x-ray very stable. Patient declined to have NG tube removed today. counseled her on risk of ongoing use - nasal necrosis, sinusitis, etc. once NG tube is d/c we can place her PEG to gravity or suction. 4. HOLD TPN due to #1; IVF - D5NS with KCL -- increase rate to 80cc/hr. Will need new central line ONCE blood is sterile and safe to place new one, likely Monday? Consult Dr Lopez to place new line; he has placed previous lines on her. 5. pancytopenia - tsh,b12,folate all wnl. 2nd to liver disease? Counts low but stable/acceptable. 6. ?sinusitis - had had 10+ days of PO augmentin/IV unasyn; abx stopped. 7. anxiety - ativan 0.25mg prn. 8. hypokalemia - cont KCL 40meq in IV fluids; repeat BMP am. Mag noted to be normal but borderline low. Will give mag sulfate 1gm IV x 1. Increase basal fluid rate from 70 to 80cc/hr. 9. abnormal LFTs - repeat LFTs trending down slowly; felt to be due to TPN- induced cholestasis. Repeat LFTs in am. 10. s/p ORIF of L hip fracture - doing well from ortho standpoint; cont pain control. Full WBAT. Cont PT, OT. PT, OT advising rehab. updated pt's son extensively by phone again yesterday pt's updated at bedside today Admission and Anticipated Discharge Date Admission Date: October 26, 2021 Subjective during my rounds today the patient's was at bedside we discussed plan of care -- d/c of NG tube, weaning IV ativan/narcotics off, placement of new central line by Dr Lopez (hopefully Monday), [facility] recommendation by [facility] CHAVEZ, increased mobility (although she walked well with PT today - apparently down the entire hallway),, etc she continues to drink copious amounts of liquids with venting/suctioning of those liquids via her NG tube left hip pain is "still there" but no worse than previous no new complaints today Review of Systems Review of Systems: gen - no fevers/chills; generalized fatigue/weakness cv - no cp, no orthopnea pulm - no dyspnea or cough GI - no abd pain today Physical Exam Physical Exam: gen - cachectic, NAD nose - NG tube in place draining brown/yellow liquid neck - no JVD heart - RRR, s1 s2, 1/6 MAICOL LSB lungs - CTA b/l abd - PEG-J tube in place, BS+, NT, soft, not distended skin - dressings intact left lateral hip; previous central line site on chest clean ext - very thin extremities, pulses 2+ b/l, no edema psych - oriented, awake Results & Data Results & Data ([facility]) Vital Signs (Past 12 Hours) Vital Signs Temp Pulse Resp BP Pulse Ox 11/03/21 15:12 36.9 C 73 16 103/65 97 Laboratory Results Laboratory Results - last 24 hr 11/03/21 07:36 Sodium 141 Potassium 3.4 L Chloride 103 Carbon Dioxide 34 H Anion Gap 4 BUN 13 Creatinine 0.71 Est Cr Clr Drug Dosing 58.0 Est GFR ( Amer) 109.6 Est GFR (Non-Af Amer) 94.6 BUN/Creatinine Ratio 18.3 Glucose 90 Calcium 7.8 L Phosphorus 3.0 Magnesium 1.7 Diagnostic Findings 10/30 blood culture thus far negative for yeast central line tip culture + for yeast blood cx's from admission - nonalbicans, further ID sent to [facility] PG Care Time/CCT Total # of Minutes Spent Total Time Spent with Patient: Total time spent is greater than 50% in coordination of care (as documented) at patient's floor/unit and/or counseling patient: Coding Level of Care Code 38640 Subseq Hosp Care Lvl 3 Diagnoses Fungemia B49 Abnormal LFTs R79.89 Pathological fracture of hip due to age-related osteoporosis M80.059A Chronic pain syndrome G89.4 Chronic pancreatitis K86.1 Fatty liver K76.0 On total parenteral nutrition (TPN) Z78.9 Pancytopenia D61.818 Severe protein-energy malnutrition E43 Sinusitis J32.9 Chronic pseudo-obstruction of small intestine K59.89 Radiation enterocolitis K52.[address] R93.89 Urinary retention R33.9
[2021-11-03] MEDS ORDERED: POTASSIUM CHLORIDE 40 MEQ in D5W AND NSS 1,000 ML IV SCH (21:00)
[2021-11-03] MEDS ORDERED: STOP CLINOLIPID ONE (22:00)
[2021-11-04] MEDS: oxyCODONE HCL IR 5 MG TAB (IMMEDIATE RELEASE) PO PRN ×2 (01:05→07:49)
[2021-11-04] MEDS ORDERED: LORazepam 1 MG TAB ONE (02:34)
[2021-11-04] MEDS ORDERED: LORazepam 1 MG TAB PO STA (03:35)
[2021-11-04] MEDS: BUPRENORPHINE HCL 8 MG SL SCH ×3 (07:50→21:01)
[2021-11-04 08:27] LABS: Hematocrit (blood only) 33.2 % (37-47); Hemoglobin 10.8 g/dL (12.0-16.0); Mean Corpuscular Hemoglobin 30.3 pg (25-34); Mean Corpuscular Hgb Conc 32.5 g/dL (32-36); Mean Platelet Volume 10.4 fL (7.4-10.4); Platelet Count 214 K/uL (130-400); RDW Coefficient of Variation 14.9 % (11.5-14.5); RDW Standard Deviation 51.2 fL (36.4-46.3); Red Blood Count 3.57 M/uL (4.2-5.4); White Blood Count 4.88 K/uL (4.8-10.8)
[2021-11-04 08:48] LABS: Albumin Level 2.5 gm/dl (3.4-5.0); BUN Creatinine Ratio 23.3 (10-20); Bilirubin Direct 1.8 mg/dl (0-0.2); Bilirubin,Total 3.7 mg/dl (0.2-1.0); Calcium 8.3 mg/dl (8.5-10.1); Creatinine Clr Calc Pharmacy 56.4 ml/min; Est GFR (Non-African American) 91.4 ml/min; Potassium 2.9 mmol/L (3.5-5.1); Total Protein 5.9 gm/dl (6.0-8.3)
[2021-11-04] MEDS: ASCORBIC ACID 500 MG TAB PO SCH ×2 (08:57→17:13)
[2021-11-04] MEDS: LIDOCAINE 5% 1 PATCH TD SCH (08:58)
[2021-11-04] MEDS: MULTIVITAMIN TAB PO SCH (08:58)
[2021-11-04] MEDS ORDERED: GLUCOSE 40% GEL 15 GM TUBE PO STA (09:54)
[2021-11-04] MEDS: POTASSIUM CHLORIDE 20 MEQ/15 ML UDC JT SCH ×3 (11:40→21:01)
--- NOTE | 2021-11-04 14:09 | Communication Note ---
Date of Service: November 04, 2021 Will need neg blood cultures for fungemia from after the catheter was removed. Ordered a set of cultures today. Most likely will place the line early next week if cultures are negative for fungus.
[2021-11-04] MEDS: LORAZEPAM 0.25 MG IV PRN (15:04)
[2021-11-04] MEDS: CASPOFUNGIN 50 MG in SODIUM CHLORIDE 0.9% 250 ML IV SCH (17:54)
[2021-11-04] MEDS ORDERED: SODIUM CHLORIDE 0.9% 1000ML 1,000 ML IV SCH (19:30)
--- NOTE | 2021-11-04 20:50 | Hospitalist Progress Note ---
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 fungemia - repeat fungal blood cultures still pending but negative since 10/30. 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 Cont caspofungin - day #6. Blood culture has been sent out for final ID and sensitivities. TTE without valvular vegetations. [facility], however. POD #3 - s/p removal central line, tip culture indeed with yeast. Continue to hold TPN while awaiting blood to become sterile. I spoke with radiology earlier this week - VERY LOW suspicion for right sternoclavicular septic arthritis or osteomyelitis; CT chest findings more c/w DJD. Further, CRP only mildly elevated; sed rate only 11. Lastly, I spoke with Dr Lowery from orthopedics. Informed him that the left hip replacement was completed while having active fungemia. He is aware, no new recommendations at this time. VERY low risk for seeding from such. Patient will need 14 days of IV caspofungin for her fungemia; if VALENTINA is + for SBE then [address] Lopez agreeable to placing new central line. Formal consult placed. He ordered additional blood cx's for test of cure. He is hoping for Monday for line placement. Dr North from cardiology consulted for VALENTINA. Hopefully we can do the line and VALENTINA at the same time. 2. acute/chronic pain - cont dilaudid 1.5mg IV q4h prn. Hold oral oxycodone. Lidoderm patch for right-sided chest wall pain from fall. Informed patient we will need to start weaning this soon. Remains on her chronic subutex 8mg TID. Pain management saw patient earlier in the stay. 3. chronic pSBO - last KUB x-ray very stable. Patient declined to have NG tube removed yesterday. counseled her on risk of ongoing use - nasal necrosis, sinusitis, etc. once NG tube is d/c we can place her PEG to gravity or suction. Hoping to do this the next 24 hours. I am concerned that the suctioning of liquids from the stomach is contributing to her refractory hypokalemia. 4. HOLD TPN due to #1; IVF - D5NS with KCL. Will ask IV team if new IV in place would be sufficient for PPN usage. 5. pancytopenia - tsh,b12,folate all wnl. 2nd to liver disease? Counts low but stable/acceptable. Copper level pending. Copper deficiency can cause macrocytic anemia. 6. ?sinusitis - had had 10+ days of PO augmentin/IV unasyn; abx stopped. 7. anxiety - ativan 0.25mg prn. 8. hypokalemia - cont KCL 40meq in IV fluids. KCL 40meq via J-tube x 4 doses. Repeat K tonight and in am. 9. abnormal LFTs - repeat LFTs trending down slowly; felt to be due to TPN- induced cholestasis. 10. s/p ORIF of L hip fracture - doing well from ortho standpoint; cont pain control. Full WBAT. Cont PT, OT. POD #8. PT, OT advising rehab. updated pt's son extensively by phone twice this week pt's updated at bedside today and yesterday Admission and Anticipated Discharge Date Admission Date: October 26, 2021 Subjective the anticipated new central line placement +/- VALENTINA tomorrow has been deferred to Monday for several reasons - primarily vascular surgery wanted to obtain additional sets of blood cx's to ensure sterility she was very anxious today - tearful at times - thinking about the potential procedures worried she won't be sedated enough, concerned about complications, etc left hip pain is stable she apparently is walking decently she continues to drink copious amounts of fluids which then are suctioned by her NG tube (4+ liters each day) no abd pain no cp no dyspnea Review of Systems Review of Systems: gen - no fevers, no chills; tired/fatigued cv - no orthopnea pulm - no dyspnea, no cough - wayne remains in place Physical Exam Physical Exam: gen - cachectic, NAD; very tearful today, anxious nose - NG tube in place draining brown/yellow liquid mouth - no thrush plaques neck - no JVD heart - RRR, s1 s2, 1/6 MAICOL LSB lungs - CTA b/l abd - PEG-J tube in place - insertion site clean; BS+, NT, soft, not distended skin - rome L hip clean, intact ext - very thin extremities, pulses 2+ b/l, no edema psych - oriented, awake, alert - anxious/tearful Results & Data Results & Data ([facility]) Vital Signs (Past 12 Hours) Vital Signs Temp Pulse Resp BP Pulse Ox 11/04/21 15:26 36.6 C 72 16 110/62 94 Laboratory Results Laboratory Results - last 24 hr 11/04/21 11/04/21 11/04/21 07:48 07:48 07:48 WBC 4.88 RBC 3.57 L Hgb 10.8 L Hct 33.2 L MCV 93.0 MCH 30.3 MCHC 32.5 RDW Std Deviation 51.2 H RDW Coeff of Esau 14.9 H Plt Count 214 MPV 10.4 Sodium 141 Potassium 2.9 L Chloride 96 L Carbon Dioxide 39 H Anion Gap 6 BUN 17 Creatinine 0.73 Est Cr Clr Drug Dosing 56.4 Est GFR ( Amer) 106.0 Est GFR (Non-Af Amer) 91.4 BUN/Creatinine Ratio 23.3 H Glucose 68 L POC Glucose Calcium 8.3 L Magnesium Total Bilirubin 3.7 H Direct Bilirubin 1.8 H AST 51 H ALT 36 Alkaline Phosphatase 285 H Total Protein 5.9 L Albumin 2.5 L Serum Copper Pending 11/04/21 11/04/21 11/04/21 07:48 14:24 17:52 WBC RBC Hgb Hct MCV MCH MCHC RDW Std Deviation RDW Coeff of Esau Plt Count MPV Sodium Potassium Chloride Carbon Dioxide Anion Gap BUN Creatinine Est Cr Clr Drug Dosing Est GFR ( Amer) Est GFR (Non-Af Amer) BUN/Creatinine Ratio Glucose POC Glucose 68 L* 80 Calcium Magnesium 2.0 Total Bilirubin Direct Bilirubin AST ALT Alkaline Phosphatase Total Protein Albumin Serum Copper 11/04/21 19:01 WBC RBC Hgb Hct MCV MCH MCHC RDW Std Deviation RDW Coeff of Esau Plt Count MPV Sodium Potassium 3.2 L Chloride Carbon Dioxide Anion Gap BUN Creatinine Est Cr Clr Drug Dosing Est GFR ( Amer) Est GFR (Non-Af Amer) BUN/Creatinine Ratio Glucose POC Glucose Calcium Magnesium Total Bilirubin Direct Bilirubin AST ALT Alkaline Phosphatase Total Protein Albumin Serum Copper PG Care Time/CCT Total # of Minutes Spent Total Time Spent with Patient: Total time spent is greater than 50% in coordination of care (as documented) at patient's floor/unit and/or counseling patient: Coding Level of Care Code 78901 Subseq Hosp Care Lvl 3 Diagnoses Fungemia B49 Abnormal LFTs R79.89 Pathological fracture of hip due to age-related osteoporosis M80.059A Chronic pain syndrome G89.4 Chronic pancreatitis K86.1 Fatty liver K76.0 On total parenteral nutrition (TPN) Z78.9 Pancytopenia D61.818 Severe protein-energy malnutrition E43 Sinusitis J32.9 Chronic pseudo-obstruction of small intestine K59.89 Radiation enterocolitis K52.[address] R93.89 Urinary retention R33.9
[2021-11-05] MEDS: LORAZEPAM 0.25 MG IV PRN ×2 (01:03→10:01)
[2021-11-05] MEDS: HYDROmorphone INJ 1 MG/ML SYRINGE IV PRN ×3 (04:09→22:50)
[2021-11-05 08:08] LABS: BUN Creatinine Ratio 28.4 (10-20); Creatinine Clr Calc Pharmacy 55.6 ml/min; Est GFR (African American) 104.2 ml/min; Est GFR (Non-African American) 89.9 ml/min; Potassium 2.9 mmol/L (3.5-5.1)
--- NOTE | 2021-11-05 08:21 | Progress Notes ---
DATE OF SERVICE: 11/05/2021. SUBJECTIVE: A 56-year-old female, now 9 days out from left cemented bipolar hip arthroplasty for fra cture. She is lying in bed on her side. She seems reasonably comfortable this morning. No new comp laints. OBJECTIVE: VITAL SIGNS: Temperature 36.9. Vital signs are stable. PHYSICAL EXAMINATION: GENERAL: Physical examination shows a thin, cachectic elderly female. She is lying on her sides. R esting reasonably comfortably this morning. EXTREMITIES: Examination of the left hip reveals the incision to be clean, dry and intact. Leg fransisca ths were equal. Minor pain with hip motion. She is neurologically intact. She dorsiflexes and plan tarflexes her foot appropriately. ASSESSMENT: A 56-year-old female with multiple medical comorbidities, now 9 days out from left bipol ar hip arthroplasty for fracture. Orthopedically, she is doing okay. She has got multiple other med ical issues. PLAN: 1. DVT prophylaxis including thigh-high TEDs and SCDs. Not really a great candidate for more aggres sive anticoagulation due to multiple medical issues. 2. PT/OT. She can weight bear as tolerated. She does need to obey hip precautions. 3. Pain control, seems to be doing okay with current pain regimen. 4. Medical management as per the medicine service. 5. Disposition: She is orthopedically okay for discharge any time. I need to see her back 2-3 week s out from surgery date. Any orthopedic questions can be directed to me at [phone]. Job ID: [id number]
[2021-11-05] MEDS: MULTIVITAMIN TAB PO SCH (09:15)
[2021-11-05] MEDS: LIDOCAINE 5% 1 PATCH TD SCH (09:15)
[2021-11-05] MEDS: BUPRENORPHINE HCL 8 MG SL SCH ×3 (09:15→20:33)
[2021-11-05] MEDS: ASCORBIC ACID 500 MG TAB PO SCH ×2 (09:15→16:52)
[2021-11-05] MEDS: POTASSIUM CHLORIDE 20 MEQ/15 ML UDC JT SCH (09:16)
[2021-11-05] MEDS ORDERED: POTASSIUM CHLORIDE 40 MEQ in D5W AND NSS 1,000 ML IV SCH (10:00)
--- NOTE | 2021-11-05 10:33 | Consultation ---
Date of Consultation November 05, 2021 Assessment & Plan (1) On total parenteral nutrition (TPN): Pt is on chronic TPN and requires access. Recommend replacement of devon catheter in OR on Monday, pending clear blood culture results. Procedure, risks, benefits, and alternatives discussed with pt at Dr Lopez's request. Pt expresses understanding and agreement, but does request that she have anesthesia. History of Present Illness Reason for Consultation: fungemia, need TPN access Attending Physician: Roman Douglas History of Present Illness 56 yo f with hx of chronic pain syndrome, lumbar spinal stenosis, osteoporosis, neuropathy, chronic pancreatitis, fatty liver, anxiety, pancytopenia, requiring TPN d/t chronic pseudo obstruction of small intestine, admitted for unintentional overdose of benzodiazepines, AMS, and fall at home resulting in L hip fx, seen today in consultation for devon catheter reinsertion. Pt was found to have fungemia and her previous devon catheter was removed, she has been without her catheter for days now. New blood cultures drawn yesterday. Pt admits severe pain in back and left hip. Denies RENO, fever, chest pain, SOB, abd pain, N/V, rest pain, claudication, other complaints. Allergies Allergy/AdvReac Type Severity Reaction Status Date / Time ibuprofen Allergy Intermediate RINGING IN Verified 10/25/21 10:09 EARS,PARTIAL LOSS HEARING ketorolac Allergy Intermediate ROARING Verified 10/25/21 10:09 SOUND IN EARS NSAIDS (Non-Steroidal Allergy Intermediate RINGING IN Verified 10/25/21 10:09 Anti-Inflamma EARS zoledronic acid Allergy Intermediate FLU LIKE Verified 10/25/21 10:09 SYMPTOMS SEVERE HEADACHE vancomycin AdvReac Severe ZACHERY Verified 10/25/21 10:09 SYNDROME alprazolam AdvReac Intermediate LOSS OF Verified 10/25/21 10:09 HEARING aspirin AdvReac Intermediate RINGING IN Verified 10/25/21 10:09 EARS,PARTIAL HEARING LOSS promethazine AdvReac Mild RESTLESS Verified 10/25/21 10:09 LEGS Home Medications Medication Instructions Recorded Confirmed Type buprenorphine HCl 8 mg sublingual 8 mg SUBLINGUAL TID PRN 11/01/20 10/25/21 History tablet amoxicillin 875 mg-potassium 1 tab PO BID 10 Days #20 tab 10/20/21 10/25/21 Rx clavulanate 125 mg tablet Patient History Medical History Anxiety Chronic pain disorder Chronic pancreatitis Esophageal reflux Fatty liver Secondary to chronic TPN use Gastrointestinal tube present Gastrostomy tube in place Hearing deficit Hypersplenism Infected venous access port Iron deficiency anemia IRON INFUSIONS IN PAST Lumbar spinal stenosis Malnutrition Neutropenia On total parenteral nutrition (TPN) 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 Osteoporosis Peripheral neuropathy Radiation enterocolitis Severe protein-energy malnutrition Short bowel syndrome Small bowel obstruction Subclinical hypothyroidism Thoracic compression fracture Urinary incontinence Surgical History History of cholecystectomy History of colonoscopy History of esophagogastroduodenoscopy (EGD) History of kyphoplasty (~2017) History of removal of tunneled central venous catheter (CVC) with port (11/01/21) Removal IV Central Catheter(Not Applicable) - Madhav Harris, DO 11/01/21 History of spinal surgery THORACIC AND LUMBAR AREA TUMOR REMOVED 1991 + 1992 - RADIATION 5 WEEKS History of surgery PEG TUBE INSERTION (NOTHING RUNS THROUGH PEG TUBE/USED ONLY FOR RELEASING FOOD PRODUCTS D/T SMALL BOWEL OBSTRUCTION) "PT EATS FOR COMFORT" History of total left hip arthroplasty Port-A-Cath in place BRUNER Status post insertion of percutaneous endoscopic gastrostomy (PEG) tube Family History Mother Diabetes Hypertension Father Family hx of colon cancer Bladder cancer Sister Alcohol abuse Deep vein thrombosis Hypertension Brother Hypertension Grandmother Hypertension Aunt Hypertension Other Cancer Social History Smoking Status: Never smoker Tobacco Type: Cigarettes Age Started Using Tobacco: 12; Age Quit Using Tobacco: 21; Second Hand Exposure: No; Do You Dip or Chew Tobacco: No; Hx Alcohol Use: No Hx Substance Use: No Preferred Language: Martiniquais Communication Ability: Effective Visual Impairment: No Limitations Piece Cutter Required: No Beliefs That Will Affect Care: None marital status: Current Living Situation: Spouse current occupational status: disabled Other Information That Helps Us Care for You: No Feels Safe at Home: Yes Safety Concerns: Feels Safe At This Time caffeine: Yes Dental Care, Regularly: Yes Physical Activity Frequency: Does not Exercise Seatbelt Use: always Sunscreen Use: No Assistive Devices: Glasses Review of Systems Review of Systems: All systems reviewed & are unremarkable except as noted in HPI & below Physical Exam Constitutional: well developed, + ill appearing (chronically), + thin, + cachectic, + frail appearing and comfortable; not in distress Neck: trachea midline Respiratory: normal respiratory effort, lungs clear to auscultation Auscultation: + diminished lung sounds Cardiovascular: Rate/Rhythm: regular rate and regular rhythm Vessels: femoral pulses present, posterior tibial pulses present, dorsalis pedis pulses present and radial pulses present; + abnormal peripheral pulses Extremities: normal capillary refill; no edema Gastrointestinal (Abdomen): Inspection/Auscultation: + abdomen abnormal to inspection (G tube) Percussion/Palpation: + abdomen tender (generalized, mild) and abdomen soft Skin: no rashes, warm and dry Neurologic: moves all extremities and awake; no focal motor deficits Psychiatric: Orientation: alert and oriented x 3 Affect: + depressed affect, + anxious affect, + tearful affect and + irritable affect Results & Data ([facility]) Vital Signs (Past 12 Hours) Vital Signs Temp Pulse Resp BP Pulse Ox 11/05/21 07:54 36.7 C 73 16 120/62 92 11/04/21 23:30 36.9 C 73 14 108/57 L 91
--- NOTE | 2021-11-05 13:14 | Pharmacy Report ---
PHA: Parenteral Nutrition Con - Date of Service November 05, 2021 - Scope Pharmacy was consulted on 10/26/21 to manage parenteral nutrition orders for this patient. - Subjective The patient is currently on day #6 of parenteral nutrition for chronic protein- energy malnutrition on chronic TPN at home. - Objective Height: 4 ft 11 in Weight: 42 kg Diet: Clear Liquid Intake & Output (24hrs):: Intake & Output 11/03/21 11/04/21 11/05/21 11/06/21 06:59 06:59 06:59 06:59 Intake Total 3503.5 / 3503.5 1795.167 / 1795.167 320 / 320 1000 / 1000 Output Total 4525 / 4525 3400 / 3400 5350 / 5350 Balance -1021.5 / -1021.5 -1604.833 / -1604.833 -5030 / -5030 1000 / 1000 Weight 42 kg 42 kg Laboratory Data (Last 24 Hr):: 11/04/21 11/05/21 19:01 07:31 Sodium 145 Potassium 3.2 L 2.9 L Chloride 98 Carbon Dioxide 39 H BUN 21 Creatinine 0.74 Glucose 76 Calcium 8.0 L Nutrition Assessment:: Please refer to the Notes section of the EMR for the most recent acetaldehyde converter operator note. - Assessment * TPN has been on hold since Monday10/30/21 secondary to fungemia and subsequent removal of central line * Patient started on caspofungin, line removed yesterday 11/01 * Central line to be replaced Monday (11/08/21) - in the meantime, a new peripheral line has been placed and patient will be placed on PPN * While TPN has been off, patient has received IV fluids in the form of D5/NSS w/ 40 KCl @ 100 mL/hr * Discussed with registered dietitian and will utilize 4.25/5 Clinimix ~@60 mL/hr today + 50 g of lipids (~twice weekly) * Electrolytes largely stable, will make sure potassium is at least equivalent to currently ordered fluids, mag and phos unknown today so will likely hold * PPN to be infused over 24 hours - Plan For day #1 of PPN administration, the following will be ordered: Macronutrients Amino acids 61 grams/day Dextrose 72 grams/day Lipids 50 grams/day Micronutrients Sodium phosphate 15 MMol Potassium chloride 100 mEq Multivitamins 10 mL Trace Elements 1 mL Thiamine 100 mg Famotidine 20 mg Total volume 1509 mL to be infused over 24 hrs will provide 990 kcal/day Final osmolarity 861 (w/ Clinolipid) mOsm/L (maximum for PPN is 900 mOsm/L) Labs, as indicated, will be ordered per protocol Pharmacy will continue to follow and adjust parenteral nutrition orders on a daily basis. Thank you for allowing us to participate in the care of this patient.
[2021-11-05] MEDS ORDERED: POTASSIUM CHLORIDE 20 MEQ/15 ML UDC JT SCH (14:00)
[2021-11-05] MEDS ORDERED: PERIPHERAL TPN IV SCH (16:00)
[2021-11-05] MEDS ORDERED: D5W IV SCH (16:00)
[2021-11-05] MEDS ORDERED: CLINOLIPID 20% IV FAT EMULSION 250 ML IV SCH (16:00)
[2021-11-05] MEDS ORDERED: AMINO ACIDS 4.25% IV SCH (16:00)
--- NOTE | 2021-11-05 16:51 | Hospitalist Progress Note ---
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 Blood culture has been sent out for final ID and sensitivities. repeat fungal blood cultures still pending but negative since 10/30. 11/04/21 blood cultures also still negative. Cont caspofungin - day #7. TTE without valvular vegetations. [facility] ID is advising VALENTINA, however. POD #4 - s/p removal central line, tip culture indeed with yeast. Continue to hold TPN - no central access, and need to ensure all the repeat cultures indeed stay negative. I spoke with radiology earlier this week - VERY LOW suspicion for right sternoclavicular septic arthritis or osteomyelitis; CT chest findings more c/w DJD. Further, CRP only mildly elevated; sed rate only 11. Lastly, I spoke with Dr Lowery from orthopedics. Informed him that the left hip replacement was completed while having active fungemia. He is aware, no new recommendations at this time. VERY low risk for seeding from such. Patient will need 14 days of IV caspofungin for her fungemia; if VALENTINA is + for SBE then [address] Lopez agreeable to placing new central line. Plan - hoping for Monday11/08/21 for line placement in the OR. Dr North from cardiology consulted for VALENTINA. Hopefully we can do the line and VALENTINA at the same time on Monday. 2. acute/chronic pain - cont dilaudid but LOWER the dose to 1mg from 1.5mg; cont q4h prn intervals. Hold oral oxycodone. Lidoderm patch for right-sided chest wall pain from fall. Again counseled her today that we need to slowly start weaning her IV dilaudid in preparation for d/c next mid-week. Remains on her chronic subutex 8mg TID. Pain management saw patient earlier in the stay. I did speak with Connie Mazariegos from pain management today; gave her update; I asked Ms Mazariegos to have her team see her this Monday to help address her pain issues. 3. chronic pSBO - last KUB x-ray very stable. Patient's PEG is working well - is attached to suction, intermittent low-wall, which allows her "comfort liquids". NG tube d/c today. Patient drinks COPIOUS fluids -- sometimes 4-5L each day. Recommended she try to cut this back some as it distends her stomach, causes leaking around her PEG tube, etc. 4. HOLD TPN due to #1; IVF - D5NS with KCL until PPN tonight; then start PPN tonight - pharmacy aware and will prepare the PPN. 5. pancytopenia - tsh,b12,folate all wnl. 2nd to liver disease? Counts low but stable/acceptable. Copper level pending. Copper deficiency can cause macrocytic anemia. 6. ?sinusitis - had had 10+ days of PO augmentin/IV unasyn; abx stopped. 7. anxiety - ativan 0.25mg prn. 8. hypokalemia - cont KCL 40meq in IV fluids until her PPN arrives, then stop the D5NS. Cont KCL 40meq via PEG tube x 2 more doses. Repeat K tonight and in am. 9. abnormal LFTs - repeat LFTs trending down slowly; felt to be due to TPN- induced cholestasis. 10. s/p ORIF of L hip fracture - doing well from ortho standpoint; cont pain control. Full WBAT. Cont PT, OT. POD #9. Does have mild Vitamin D deficiency. Hopefully once TPN is back on she can start to get her macro/micronutrients as previous. PT, OT advising rehab. Pt refusing; will only go home with . updated pt's son extensively by phone earlier this week and again tonight pt's updated at bedside this week gave reassurances to Ms Lopez that the entire care team is on her side and trying to help her as much as we can during her illness Admission and Anticipated Discharge Date Admission Date: October 26, 2021 Subjective when I came into the room today there was water on the floor, straws, and wet tissues/napkins on her bedside table she was quite groggy at first and for the initial 1/2 of the visit staff report that she sleeps for much of the day and the pain meds/ativan make this worse she continues to drink copious amount of liquid which gets sucked out the NG tube (which remains on intermittent low-wall suction) she c/o left hip pain, but today during the visit she had her legs flexed in the bed and was quite comfortable no abd pain very tearful, very anxious complaining that "staff don't care" and don't respond to her needs readily I gave reassurances that we are all here to help her through this difficult time we discussed that we can remove the NG tube and simply place suction on her PEG tube she expressed reluctancy, stating "then I'll have to get up" I wasn't sure what she meant and I asked her to explain what she was trying to convey again she simply stated "she would have to get up" during the visit she was ultimately agreeable to removing the NG - nursing staff removed it without any issues suction was placed on her PEG and was draining copious yellow/dark fluid I told her that I had spoken with both Dr Lopez and Dr North and the hope is that we would perform the line placement/VALENTINA concurrently also, IV team assessed her peripheral IV and felt that it would be adequate for PPN; thus, PPN to start this evening finally, staff report that the patient mentioned to them that at some point in the past (at home) she had crushed an ativan tablet and put it through her central line?? Review of Systems Review of Systems: gen - fatigue, no fevers CV - no orthopnea, no cp pulm - no dyspnea GI - does not report abd pain Physical Exam Physical Exam: gen - cachectic, NAD; again very tearful today and even somewhat upset/angry about her care nose - NG tube in place; this was removed by staff during my visit mouth - no thrush plaques neck - no JVD heart - RRR, s1 s2, 1/6 MAICOL LSB lungs - CTA b/l abd - PEG tube in place - insertion site clean; BS+, NT, soft, not distended; PEG is hooked up to suction - draining yellow fluid skin - rome L hip clean, intact, no drainage ext - very thin extremities, pulses 2+ b/l, no edema psych - oriented x 3; sleepy at first, gradually more awake; upset/anxious/teaful Results & Data Results & Data ([facility]) Vital Signs (Past 12 Hours) Vital Signs Temp Pulse Resp BP Pulse Ox 11/05/21 07:54 36.7 C 73 16 120/62 92 Laboratory Results Laboratory Results - last 24 hr 11/04/21 11/04/21 11/05/21 17:52 19:01 07:31 Sodium 145 Potassium 3.2 L 2.9 L Chloride 98 Carbon Dioxide 39 H Anion Gap 8 BUN 21 Creatinine 0.74 Est Cr Clr Drug Dosing 55.6 Est GFR ( Amer) 104.2 Est GFR (Non-Af Amer) 89.9 BUN/Creatinine Ratio 28.4 H Glucose 76 POC Glucose 80 Calcium 8.0 L Cortisol AM Sample 11/05/21 07:31 Sodium Potassium Chloride Carbon Dioxide Anion Gap BUN Creatinine Est Cr Clr Drug Dosing Est GFR ( Amer) Est GFR (Non-Af Amer) BUN/Creatinine Ratio Glucose POC Glucose Calcium Cortisol AM Sample 17.55 PG Care Time/CCT Total # of Minutes Spent Total Time Spent with Patient: Total time spent is greater than 50% in coordination of care (as documented) at patient's floor/unit and/or counseling patient: Coding Level of Care Code 18101 Subseq Hosp Care Lvl 3 Diagnoses Fungemia B49 Abnormal LFTs R79.89 Pathological fracture of hip due to age-related osteoporosis M80.059A Chronic pain syndrome G89.4 Chronic pancreatitis K86.1 Fatty liver K76.0 On total parenteral nutrition (TPN) Z78.9 Pancytopenia D61.818 Severe protein-energy malnutrition E43 Sinusitis J32.9 Chronic pseudo-obstruction of small intestine K59.89 Radiation enterocolitis K52.[address] R93.89 Urinary retention R33.9 Chronic pain disorder G89.4 Anxiety F41.9 Hypokalemia E87.6
[2021-11-05] MEDS: CASPOFUNGIN 50 MG in SODIUM CHLORIDE 0.9% 250 ML IV SCH (18:12)
[2021-11-05 18:26] LABS: Phosphorus 2.8 mg/dl (2.5-4.9); Potassium 3.3 mmol/L (3.5-5.1)
[2021-11-05] MEDS: POTASSIUM CHLORIDE 20 MEQ/15 ML UDC PEG SCH (20:33)
[2021-11-05] MEDS ORDERED: STOP CLINOLIPID ONE (22:00)
[2021-11-06] MEDS: HYDROmorphone INJ 1 MG/ML SYRINGE IV PRN ×5 (02:53→21:19)
[2021-11-06 07:07] LABS: BUN Creatinine Ratio 37.5 (10-20); Calcium 7.6 mg/dl (8.5-10.1); Creatinine Clr Calc Pharmacy 64.3 ml/min; Est GFR (African American) 114.8 ml/min; Est GFR (Non-African American) 99.1 ml/min; Magnesium 1.7 mg/dl (1.7-2.4); Phosphorus 2.4 mg/dl (2.5-4.9); Potassium 3.5 mmol/L (3.5-5.1)
[2021-11-06] MEDS: LIDOCAINE 5% 1 PATCH TD SCH (08:38)
[2021-11-06] MEDS: POTASSIUM CHLORIDE 20 MEQ/15 ML UDC PEG SCH (08:41)
[2021-11-06] MEDS: BUPRENORPHINE HCL 8 MG SL SCH ×3 (09:02→21:23)
--- NOTE | 2021-11-06 11:06 | Progress Notes ---
DATE OF SERVICE: 11/06/2021. SUBJECTIVE: A 56-year-old female, now 10 days out from a left cemented hip arthroplasty for fracture . Hip is doing pretty well. No real complaints today. OBJECTIVE: VITAL SIGNS: Temperature 36.8. Vital signs are stable. PHYSICAL EXAMINATION: GENERAL: Shows a frail, cachectic, middle-aged female. She is lying in bed on her side, kind of in a position. EXTREMITIES: Examination of the left hip reveals the incision to be healing nicely. No drainage. L eg lengths are equal. She can dorsiflex and plantarflex her foot appropriately. Mild pain with hip motion. ASSESSMENT: A 56-year-old white female, now 10 days out from left cemented bipolar hip arthroplasty for fracture. Orthopedically, she is doing okay. She has got multiple medical comorbidities. PLAN: From an orthopedic standpoint, she can weight bear as tolerated. Needs to obey hip precaution s. I need to see her back in 2 to 3 weeks out from surgery date. Any orthopedic questions can be di rected to me at [phone]. Job ID: [id number]
--- NOTE | 2021-11-06 12:45 | Hospitalist Progress Note ---
Date of Service November 06, 2021 Assessment & Plan (1) Fungemia: Plan: BC: None albicans Nicole, sensitivities and speciation pending Suspicious for Nicole glabrata Repeat cultures remain negative Continue caspofungin TTE without evidence of endocarditis/vegetation, previously discussed with Marin CHAVEZ who did recommend VALENTINA VALENTINA pending likely Monday combined with port placement as noted below (2) Pathological fracture of hip due to age-related osteoporosis: Plan: Left displaced femoral neck fracture status post cemented hip arthroplasty 10/27/2021 Status post operative repair Weightbearing as tolerated Continue PT/OT Vitamin D deficient, resume nutrient supplementation once TPN is able to be resumed (3) Abnormal LFTs: Plan: Trend, downtrending with recheck tomorrow,? Cholestatic (4) Chronic pseudo-obstruction of small intestine: Plan: Chronic pseudoobstruction, on TPN for nutrition Prior central catheter removed for fungemia, pending replacement Monday cultures remain negative Patient with a PEG which she drains stomach contents, continues to drink fluids for comfort with minimal nutrition from this Continued on PPN pending line replacement KUB stable Counseling provided regarding copious fluid intake and stomach distention, again patient defers this reports it makes her feel better (5) Chronic pain syndrome: Plan: Patient with acute on chronic pain, frustrated by attempts to wean analgesic medications Dilaudid lowered from 1.5 mg to 1 mg, patient reports significant increase in pain with this. 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 She has just had a lunch tray brought, has not had anything yet. She reports she continues to be achy all over which does improve with her Ativan and Dilaudid, and expresses a great deal of anxiety over her current illness. Reports she is frustrated by attempts to reduce her anxiety/pain medicine, and notes she would rather be tired and not in pain then uncomfortable and "I am not tired anyway". Endorses some discomfort around her PICC today, unchanged from prior, and continued pain in both hips. Is sitting in a chair starting lunch tray with liquids. On afternoon revisit appears to be sleeping comfortably in room. Is pending VALENTINA and line placement on Monday, no additional questions. Review of Systems Review of Systems: As above. Denies chest pain, chest pressure, difficulty breathing, fever, chills, lightheadedness, syncope, presyncope. Continues to endorse diffuse pain unchanged as noted Physical Exam Physical Exam: General: Appears chronically ill, cachectic, anxious. Oriented to name, date, and place. HEENT: Atraumatic, normocephalic. Pulm: CTAB A&P. -wheezes, -rales, -rhonchi. Symmetrical chest rise. No increase in work of breathing. No respiratory distress. Cardiac: RRR, -mrg. Radial pulses intact and symmetrical. Abdominal: PEG tube in place draining to suction. Abdomen soft, nondistended. No PEG leak at time of assessment. Extremities: Left hip with rome in place, no dehiscence/discha rge/warmth/erythema. Results & Data Results & Data ([facility]) Vital Signs (Past 12 Hours) Vital Signs Temp Pulse Resp BP Pulse Ox 11/06/21 07:18 36.8 C 69 16 115/59 L 97 PG Care Time/CCT Total # of Minutes Spent Total Time Spent with Patient: Total time spent is greater than 50% in coordination of care (as documented) at patient's floor/unit and/or counseling patient: Coding Level of Care Code 18222 Subseq Hosp Care Lvl 2 Diagnoses Fungemia B49 Pathological fracture of hip due to age-related osteoporosis M80.059A Abnormal LFTs R79.89 Chronic pain syndrome G89.4 Chronic pancreatitis K86.1 Fatty liver K76.0 On total parenteral nutrition (TPN) Z78.9 Pancytopenia D61.818 Severe protein-energy malnutrition E43 Sinusitis J32.9 Chronic pseudo-obstruction of small intestine K59.89 Radiation enterocolitis K52.[address] R93.89 Urinary retention R33.9 Anxiety F41.9 Hypokalemia E87.6
[2021-11-06] MEDS ORDERED: PERIPHERAL TPN IV SCH (16:00)
[2021-11-06] MEDS ORDERED: AMINO ACIDS 4.25% IV SCH (16:00)
[2021-11-06] MEDS ORDERED: D5W IV SCH (16:00)
[2021-11-06] MEDS: CASPOFUNGIN 50 MG in SODIUM CHLORIDE 0.9% 250 ML IV SCH (16:40)
[2021-11-06] MEDS: LORAZEPAM 0.25 MG IV PRN (18:07)
[2021-11-07] MEDS: LORAZEPAM 0.25 MG IV PRN ×3 (00:18→23:51)
[2021-11-07] MEDS: HYDROmorphone INJ 1 MG/ML SYRINGE IV PRN ×3 (01:43→20:11)
[2021-11-07 08:22] LABS: BUN Creatinine Ratio 48.3 (10-20); Calcium 7.6 mg/dl (8.5-10.1); Creatinine Clr Calc Pharmacy 68.6 ml/min; Est GFR (African American) 117.3 ml/min; Est GFR (Non-African American) 101.2 ml/min; Magnesium 1.7 mg/dl (1.7-2.4); Phosphorus 3.4 mg/dl (2.5-4.9); Potassium 3.8 mmol/L (3.5-5.1)
--- NOTE | 2021-11-07 08:50 | Communication Note ---
Date of Service: November 07, 2021 For devon miller tomorrow.
[2021-11-07] MEDS: LIDOCAINE 5% 1 PATCH TD SCH (08:54)
[2021-11-07] MEDS: BUPRENORPHINE HCL 8 MG SL SCH ×3 (11:48→20:09)
[2021-11-07] MEDS ORDERED: MAGNESIUM SULFATE / D5W 1 GM/100 ML BAG IV ONE (12:00)
[2021-11-07 12:10] LABS: Albumin Level 2.4 gm/dl (3.4-5.0); Bilirubin Direct 1.2 mg/dl (0-0.2); Bilirubin,Total 2.5 mg/dl (0.2-1.0); Total Protein 5.8 gm/dl (6.0-8.3)
[2021-11-07] MEDS ORDERED: PERIPHERAL TPN IV SCH (16:00)
[2021-11-07] MEDS ORDERED: D5W IV SCH (16:00)
[2021-11-07] MEDS ORDERED: AMINO ACIDS 4.25% IV SCH (16:00)
[2021-11-07] MEDS: CASPOFUNGIN 50 MG in SODIUM CHLORIDE 0.9% 250 ML IV SCH (16:40)
--- NOTE | 2021-11-07 18:47 | Hospitalist Progress Note ---
Date of Service November 07, 2021 Assessment & Plan (1) Fungemia: Plan: Growing Nicole glabrata complex and blood cultures from 10/26 -Right Port-A-Cath removed by general surgery and catheter tip also growing Nicole glabrata Repeat blood cultures remain negative from 11/04 Continue caspofungin x2-week course if VALENTINA negative for valvular vegetation, otherwise ID recommends treatment with 6 weeks of caspofungin VALENTINA scheduled for Monday combined with port placement with a Jose catheter with vascular surgery (2) Pathological fracture of hip due to age-related osteoporosis: Plan: Status post fall Left displaced femoral neck fracture status post cemented hip arthroplasty 10/27/2021 Weightbearing as tolerated, needs to obey hip precautions Continue PT/OT Vitamin D deficient, resume nutrient supplementation once TPN is able to be resumed DVT prophylaxis with teds and SCDs as per orthopedics due to concerns for giving anticoagulation, however I believe it would be fine for her to have Lovenox once daily after her catheter is replaced -Follow-up with orthopedic surgeon 2-3 weeks out from the surgery date-Dr. Slade Lowery (3) Abnormal LFTs: Plan: In cholestatic pattern, follows with hepatology through [facility] Thought to be secondary to TPN induced cholestasis Improved on repeat check today Hepatology recommended reducing her lipid intake in her TPN which has resulted in a reduction in her LFTs She also had an outpatient MRCP which showed no evidence of biliary obstruction Continue follow-up with hepatology as an outpatient-GI recommends consideration be given for liver biopsy should her liver enzymes not continue to normalize (4) Chronic pseudo-obstruction of small intestine: Plan: 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, on TPN for nutrition since 2001 Prior central catheter removed for fungemia, pending replacement Monday Patient with a PEG which she drains stomach contents, continues to drink fluids for comfort with minimal nutrition from this Continued on PPN pending line replacement KUB stable Counseling provided regarding copious fluid intake and stomach distention, again patient defers this reports it makes her feel better (5) Chronic pain syndrome: Plan: Patient with acute on chronic pain, frustrated by attempts to wean analgesic medications Dilaudid lowered from 1.5 mg to 1 mg IV every 4 hours patient reports signi ficant increase in pain with this. We will continue 1 mg dosing at this time Continue nonnarcotic analgesia as tolerated including Lidoderm Continue Subutex 8 mg SL 3 times daily, patient is to be seen by pain management on Monday Of note, she has been able to tolerate oxycodone in the liquid form for additional pain control We will need to coordinate with her outpatient pain management doctor, Dr. Stack in [place], prior to discharge (6) Pancytopenia: Plan: TSH normal, B12 normal, folate normal Copper level normal Likely secondary to liver disease however platelets have improved since admission and there may been some component of sepsis induced thrombocytopenia (7) Chronic pancreatitis: Plan: Noted (8) Fatty liver: Plan: Noted Follows with hepatology (9) On total parenteral nutrition (TPN): Plan: Currently on hold, is on PPN Awaiting replacement of central catheter on Monday (10) Severe protein-energy malnutrition: Plan: BMI 18.7 On chronic TPN Managed by [facility] nutrition (11) Sinusitis: Plan: No additional treatment for this at this time (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 and need for TPN and chronic venting PEG tube (13) Abnormal chest CT: Plan: Patient with CT chest with DJD, low suspicion for right septic arthritis/osteodiscussed with radiology by previous provider (14) Urinary retention: Plan: Required placement of Juarez catheter Most likely secondary to excessive opioid use Continue Juarez catheter for now and plan trial of void prior to discharge (15) Anxiety: Plan: Longstanding Continue lorazepam as needed (16) Hypokalemia: Plan: Normalized Follow BMP Plan: DVT prophylaxis-SCDs, plan to start Lovenox after catheter placement Disposition-PT/OT recommending rehab, but patient does not want to go to rehab and plans to go home with home health, likely on Monday Admission and Anticipated Discharge Date Admission Date: October 26, 2021 Subjective Pt reports worsening of her chronic back pain due to the hospital beds. Otherwise has no major complaints. Review of Systems Review of Systems: All systems reviewed & are unremarkable except as noted in HPI & below Physical Exam Constitutional: + thin Eyes: + anicteric sclerae Neck: trachea midline, no thyromegaly Respiratory: normal respiratory effort, lungs clear to auscultation Cardiovascular: RRR, no murmur, no edema Chest (Breasts): Chest: + abnormal inspection of chest (Right anterior chest wall with sutures in place) Gastrointestinal (Abdomen): normal bowel sounds, soft, nontender, no hepatosplenomegaly (With PEG tube in place) Musculoskeletal: Extremities: extremities normal to inspection; no cyanosis and no clubbing Skin: no rashes, warm and dry Neurologic: moves all extremities and awake; no focal motor deficits Psychiatric: A+Ox3, euthymic affect Lymphatic: no lymphedema Results & Data Results & Data ([facility]) Vital Signs (Past 12 Hours) Vital Signs Temp Pulse Resp BP Pulse Ox 11/07/21 15:00 36.6 C 84 18 135/76 92 11/07/21 07:16 36.5 C 58 L 18 117/62 98 Laboratory Results 11/04/21 07:48 11/07/21 07:09 Repeat blood cultures-still no growth to date PG Care Time/CCT Total # of Minutes Spent Total Time Spent with Patient: Total time spent is greater than 50% in coordination of care (as documented) at patient's floor/unit and/or counseling patient: Coding Level of Care Code 15602 Subseq Hosp Care Lvl 3 Diagnoses Fungemia B49 Pathological fracture of hip due to age-related osteoporosis M80.059A Abnormal LFTs R79.89 Chronic pseudo-obstruction of small intestine K59.89 Chronic pain syndrome G89.4 Pancytopenia D61.818 Chronic pancreatitis K86.1 Fatty liver K76.0 On total parenteral nutrition (TPN) Z78.9 Severe protein-energy malnutrition E43 Sinusitis J32.9 Radiation enterocolitis K52.[address] R93.89 Urinary retention R33.9 Anxiety F41.9 Hypokalemia E87.6
[2021-11-08] MEDS: HYDROmorphone INJ 1 MG/ML SYRINGE IV PRN (02:07)
[2021-11-08] MEDS: LORAZEPAM 0.25 MG IV PRN ×3 (06:09→21:33)
[2021-11-08 07:31] LABS: Basophils # (auto) 0.01 K/uL (0-0.2); Basophils % (auto) 0.2 %; Eosinophils # (auto) 0.03 K/uL (0-0.5); Eosinophils % (auto) 0.6 %; Hematocrit (blood only) 31.2 % (37-47); Hemoglobin 10.3 g/dL (12.0-16.0); Immature Granulocytes # (auto) 0.01 K/uL (0.00-0.02); Immature Granulocytes % (auto) 0.2 %; Lymphocytes # (auto) 0.49 K/uL (1.2-3.4); Lymphocytes % (auto) 10.4 %; Mean Corpuscular Hemoglobin 30.5 pg (25-34); Mean Corpuscular Volume 92.3 fL (80-100); Monocytes # (auto) 0.33 K/uL (0.11-0.59); Neutrophils # (auto) 3.85 K/uL (1.4-6.5); Neutrophils % (auto) 81.6 %; Platelet Count 234 K/uL (130-400); RDW Coefficient of Variation 14.6 % (11.5-14.5); RDW Standard Deviation 48.8 fL (36.4-46.3); Red Blood Count 3.38 M/uL (4.2-5.4); White Blood Count 4.72 K/uL (4.8-10.8)
[2021-11-08 07:57] LABS: Albumin Level 2.4 gm/dl (3.4-5.0); BUN Creatinine Ratio 48.3 (10-20); Bilirubin Direct 0.8 mg/dl (0-0.2); Bilirubin,Total 2.5 mg/dl (0.2-1.0); Calcium 7.6 mg/dl (8.5-10.1); Creatinine Clr Calc Pharmacy 68.6 ml/min; Est GFR (African American) 117.3 ml/min; Est GFR (Non-African American) 101.2 ml/min; Magnesium 2.1 mg/dl (1.7-2.4); Phosphorus 3.2 mg/dl (2.5-4.9); Total Protein 5.6 gm/dl (6.0-8.3)
[2021-11-08] MEDS ORDERED: ceFAZolin 1000MG 1,000 MG/7.5 ML SYR IV ONE (08:00)
[2021-11-08] MEDS ORDERED: HYDROCODONE/ACETAMOPHEN 5/325MG TAB PO PRN (08:51)
[2021-11-08] MEDS: BUPRENORPHINE HCL 8 MG SL SCH ×4 (10:55→21:33)
[2021-11-08] MEDS: LIDOCAINE 5% 1 PATCH TD SCH (10:55)
[2021-11-08] MEDS ORDERED: BENZOCAINE/TETRACAIN/BUTAM 50 APPLN/5 GM CAN EXT ONE (10:59)
--- NOTE | 2021-11-08 11:06 | Anesthesiology Consultation ---
Date of Service November 08, 2021 Assessment & Plan (1) Encounter for pre-operative examination: Chart Review Chart Review: Acceptable Risk for Surgery and Patient NOT seen in Pre Admission Testing Consults Requested none History Surgery Operation Date: 10/26/21 07:00 Proposed Procedures p Selective Nerve Root Injection - Gerard Pepper, DO Operation Date: 10/27/21 07:00 Proposed Procedures p Left Cemented Hip Hemiarthroplasty - Slade Lowery MD Operation Date: 11/01/21 10:30 Proposed Procedures p Removal IV Central Catheter - Madhav Harris, DO Operation Date: 11/05/21 07:30 Proposed Procedures p Transesophageal Echo w/Anesthesia - Carlos North MD Operation Date: 11/08/21 11:00 Proposed Procedures p Peewee Catheter Insertiion - Miguel Lopez MD s Transesophageal Echo w/Anesthesia - Carlos North MD Height/Weight Height: 4 ft 11 in Weight: 42 kg Allergies Allergy/AdvReac Type Severity Reaction Status Date / Time ibuprofen Allergy Intermediate RINGING IN Verified 10/25/21 10:09 EARS,PARTIAL LOSS HEARING ketorolac Allergy Intermediate ROARING Verified 10/25/21 10:09 SOUND IN EARS NSAIDS (Non-Steroidal Allergy Intermediate RINGING IN Verified 10/25/21 10:09 Anti-Inflamma EARS zoledronic acid Allergy Intermediate FLU LIKE Verified 10/25/21 10:09 SYMPTOMS SEVERE HEADACHE vancomycin AdvReac Severe ZACHERY Verified 10/25/21 10:09 SYNDROME alprazolam AdvReac Intermediate LOSS OF Verified 10/25/21 10:09 HEARING aspirin AdvReac Intermediate RINGING IN Verified 10/25/21 10:09 EARS,PARTIAL HEARING LOSS promethazine AdvReac Mild RESTLESS Verified 10/25/21 10:09 LEGS Medications Home Medications Medication Instructions Recorded Confirmed Last Taken buprenorphine HCl 8 mg sublingual 8 mg SUBLINGUAL TID PRN 11/01/20 10/25/21 10/24/21 tablet amoxicillin 875 mg-potassium 1 tab PO BID 10 Days #20 tab 10/20/21 10/25/21 10/24/21 clavulanate 125 mg tablet Active Medications Generic Name Dose Route Start Last Admin Trade Name Freq PRN Reason Stop Dose Admin Buprenorphine HCl 8 mg 10/29/21 14:00 11/08/21 10:55 Pt's Own Med: Buprenorphine Hcl 8 Mg Subl SL 11/28/21 13:59 Not Given TID ARJUN Calcium Carbonate 500 mg 10/26/21 22:02 10/28/21 07:32 Calcium Carbonate 500 Mg Chewable Tab PO 11/25/21 22:01 500 mg Q4H PRN Administration Indigestion Heparin Sodium (Beef Lung) 5 ml 10/28/21 08:20 10/30/21 18:45 Heparin 10 Unit/Ml 5 Ml Flush FLUSH 11/27/21 08:19 5 ml PRN PRN Administration Flush Caspofungin 50 mg/ Sodium 260 mls @ 250 mls/hr 10/31/21 18:00 11/07/21 17:59 Chloride IV 11/30/21 17:59 Infused Q24H [facility] Infusion Amino Acids 1,505 ml/ 1,505 mls @ 62.7 mls/hr 11/07/21 16:00 11/08/21 06:35 Nutrition (Parenteral) IV 11/08/21 15:59 0 mls/hr .Q24H [facility] Infusion Protocol Lidocaine 1 patch 10/30/21 13:45 11/08/21 10:55 Lidocaine 5% 1 Patch TD 11/29/21 13:44 Not Given QAM ARJUN Lorazepam 0.25 mg 11/01/21 10:45 11/08/21 06:09 Lorazepam 0.25 Mg IV 12/01/21 10:44 0.25 mg Q6H PRN Administration Anxiety/Muscle Spasm Melatonin 3 mg 10/28/21 20:33 10/30/21 00:54 Melatonin 3 Mg Tab PO 11/27/21 20:32 3 mg HS PRN Administration Sleep Miscellaneous 1 ea 10/30/21 21:00 11/07/21 20:09 Remove Lidoderm Patch N/A 11/29/21 20:59 Not Given DAILY@2100 [facility] NPO Date Last Intake of Fluids: 11/01/21 Time Last Intake of Fluids: 10:00 Last Intake of Fluids Comment: SIP WITH MEDS Date Last Intake of Solids: 10/31/21 Time Last Intake of Solids: 18:00 Last Intake of Solids Comment: NG TUBE, CLEAR LIQUIDS Past Medical History Medical History Anxiety Chronic pain disorder Chronic pancreatitis Esophageal reflux Fatty liver Secondary to chronic TPN use Gastrointestinal tube present Gastrostomy tube in place Hearing deficit Hypersplenism Infected venous access port Iron deficiency anemia IRON INFUSIONS IN PAST Lumbar spinal stenosis Malnutrition Neutropenia On total parenteral nutrition (TPN) 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 Osteoporosis Peripheral neuropathy Radiation enterocolitis Severe protein-energy malnutrition Short bowel syndrome Small bowel obstruction Subclinical hypothyroidism Thoracic compression fracture Urinary incontinence Past Family History Family History Mother Diabetes Hypertension Father Family hx of colon cancer Bladder cancer Sister Alcohol abuse Deep vein thrombosis Hypertension Brother Hypertension Grandmother Hypertension Aunt Hypertension Other Cancer Past Surgical History Surgical History History of cholecystectomy History of colonoscopy History of esophagogastroduodenoscopy (EGD) History of kyphoplasty (~2018) History of removal of tunneled central venous catheter (CVC) with port (11/01/21 ) Removal IV Central Catheter(Not Applicable) - Madhav Harris DO 11/01/21 History of spinal surgery THORACIC AND LUMBAR AREA TUMOR REMOVED 1991 + 1992 - RADIATION 5 WEEKS History of surgery PEG TUBE INSERTION (NOTHING RUNS THROUGH PEG TUBE/USED ONLY FOR RELEASING FOOD PRODUCTS D/T SMALL BOWEL OBSTRUCTION) "PT EATS FOR COMFORT" History of total left hip arthroplasty Port-A-Cath in place BRUNER Status post insertion of percutaneous endoscopic gastrostomy (PEG) tube Social History Smoking Status: Never smoker Do You Dip or Chew Tobacco: No Hx Alcohol Use: No Hx Substance Use: No substance use type: does not use Physical Exam Vital Signs Last Vital Signs Temp 98.2 F 11/08/21 06:53 Pulse 61 11/08/21 06:53 Resp 16 11/08/21 06:53 BP 111/52 L 11/08/21 06:53 Pulse Ox 97 11/08/21 06:53 Testing Laboratory Results 11/08/21 07:09 11/08/21 07:09 PT 11.8 Seconds (9.0-12.0) 10/27/21 06:36 INR 1.2 (0.9-1.1) H 10/27/21 06:36 APTT 29.3 Seconds (21.0-31.0) 10/27/21 06:36 Urine Color Dark Yellow 10/30/21 16:40 Urine Appearance Clear (Clear) 10/30/21 16:40 Urine pH 7.0 (4.5-7.5) 10/30/21 16:40 Ur Specific Prole 1.028 (1.000-1.030) 10/30/21 16:40 Urine Protein Trace (Negative) H 10/30/21 16:40 Urine Glucose (UA) Negative (Negative) 10/30/21 16:40 Urine Ketones Negative (Negative) 10/30/21 16:40 Urine Nitrite Negative (Negative) 10/30/21 16:40 Ur Leukocyte Esterase Negative (Negative) 10/30/21 16:40 Urine WBC (Auto) 1-5 /hpf (0-5) 10/30/21 16:40 Urine RBC (Auto) 0-4 /hpf (0-4) 10/30/21 16:40 U Hyaline Cast (Auto) 1-5 /lpf (0-5) 10/30/21 16:40 U Epithel Cells (Auto) 10-20 /lpf (0-5) H 10/30/21 16:40 Urine Bacteria (Auto) Negative (Negative) 10/30/21 16:40 Blood Type A Positive 10/26/21 04:55 Antibody Screen NEGATIVE 10/26/21 04:55 11/01/21 14:10 Catheter Tip Culture - Final Catheter Tip, A-port Nicole glabrata complex 11/04/21 14:15 Aerobic Blood Culture - Preliminary Blood No growth in Aerobic bottle after 48 hours. Anaerobic Blood Culture - Final 11/04/21 14:15 Aerobic Blood Culture - Preliminary Blood No growth in Aerobic bottle after 48 hours. Anaerobic Blood Culture - Final 10/30/21 18:41 Fungal Smear - Final Blood Fungal Culture - Preliminary No yeast or fungus isolated - Report 1, Additional Report to Follow. 10/26/21 08:54 Aerobic Blood Culture - Final Blood No growth in Aerobic bottle after 5 days. Anaerobic Blood Culture - Preliminary Nicole glabrata complex 10/26/21 08:49 Aerobic Blood Culture - Final Blood No growth in Aerobic bottle after 5 days. Anaerobic Blood Culture - Final No growth in Anaerobic bottle after 5 days. 10/26/21 09:00 Urine Culture - Final Urine,Indwelling Cath No growth - less than 1,000 colonies/mL. Electrocardiogram Date: 10/25/21 Findings: + NSR @ septal infarct Chest X-Ray Date: 11/03/21 Findings: + pleural effusion (R) Echocardiogram Date: 11/02/21 EF: 60-65 LV Function: normal
[2021-11-08] MEDS ORDERED: SUCCINYLCHOLINE 100MG/5ML SYR IV ONE (11:13)
[2021-11-08] MEDS ORDERED: LIDOCAINE 2% 2 ML VIAL/AMP(20MG/ML) INFIL ONE (11:13)
[2021-11-08] MEDS ORDERED: ONDANSETRON INJ 2 MG/ML 2 ML VIAL ONE (11:13)
[2021-11-08] MEDS ORDERED: MIDAZOLAM HCL 1 MG/ML 2ML VIAL ONE (11:13)
[2021-11-08] MEDS ORDERED: PROPOFOL IV EMULSION 10 MG/ML 20 ML VIAL IV ONE (11:13)
[2021-11-08] MEDS ORDERED: fentaNYL citrate 100 MCG/2 ML VIAL ONE (11:13)
[2021-11-08] MEDS ORDERED: DEXTROSE 50% 50 ML SYRINGE IV ONE (11:26)
[2021-11-08] MEDS ORDERED: VISIPAQUE IV PRN (12:20)
--- NOTE | 2021-11-08 12:31 | Operative Report ---
Post Operative Report Pre & Post Diagnosis Operation Date: 10/26/21 07:00 <No data on this case meets the specified criteria> Operation Date: 10/27/21 07:00 Pre-Op Diagnosis: Left displaced femoral neck fracture Post-Op Diagnosis: Left displaced femoral neck fracture Operation Date: 11/01/21 10:30 Pre-Op Diagnosis: (1) Fungemia: (2) Chronic pain syndrome: (3) Cachexia: (4) On total parenteral nutrition (TPN): Post-Op Diagnosis: (1) Fungemia: (2) Chronic pain syndrome: (3) Cachexia: (4) On total parenteral nutrition (TPN): Operation Date: 11/05/21 07:30 <No data on this case meets the specified criteria> Operation Date: 11/08/21 11:00 Pre-Op Diagnosis: lack of venous access Post-Op Diagnosis: lack of venous access I identified the patient and participated in the time-out.: Yes Procedure Operation Date: 10/26/21 07:00 Actual Procedures p Selective Nerve Root Injection - Gerard Pepper DO Operation Date: 10/27/21 07:00 Actual Procedures p Left Cemented Hip Hemiarthroplasty(Left) - Slade Lowery MD Operation Date: 11/01/21 10:30 Actual Procedures p Removal IV Central Catheter(Not Applicable) - Madhav Harris DO Operation Date: 11/05/21 07:30 <No data on this case meets the specified criteria> Operation Date: 11/08/21 11:00 Actual Procedures p Insertion of Peewee Catheter, Internal Jugular Approach, Localization of Right Jugular Vein, Fluroscopy for Positioning(Right) - Miguel Lopez MD s Transesophageal Echo w/Anesthesia(Not Applicable) - Carlos North MD Surgeon Miguel Lopez MD Backup Operator none Estimated Blood Loss 10 Findings Consistent with Post-Op Diagnosis Specimens none Anesthesia Type General Complications none Disposition Accompanied Patient To Recovery: No Disposition: Recovery Room Indications This is a 56-year-old female requiring TPN. She had her Jaime catheter scarlet valerie due to infection. She now needs a replacement of letter catheter for TPN purposes. I have discussed the risks options and benefits of the procedure with the patient. The patient understands the risks options and benefits and agrees to the procedure. Description of Procedure Patient was taken to the angio suite and placed in the supine position. The right side of the neck and chest wall were prepped and draped in a sterile manner after general anesthesia was accomplished. The patient was identified and a timeout performed. Ultrasound was then used to locate the right internal jugular vein. The vein compressed easily, had no filing defects, and was patent. The vein was then punctured under direct ultrasound imaging. A guidewire was then passed centrally under fluoroscopic imaging. A guidewire wire would not pass centrally. It was coiling up back on itself. We then inserted a 5 Telugu sheath. 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 The left brachiocephalic was patent with a very large azygous vein. We then used the 035 wire and was able to cannulate the left brachiocephalic for the right side. A stab wound was then made in the anterior chest wall and a Peewee was passed from the stab wound on the chest wall to the puncture site on the neck. The puncture site was then dilated till the 10 Fr peel away sheath was inserted. The Peewee was then inserted through the sheath to a central position in the distal right brachiocephalic vein. The peel away sheath was then removed. We wanted to the past the catheter into the left basilic to give more surface for the infusions. We then inserted an 014 wire through the Peewee catheter. The wire was able to be manipulated into the left brachiocephalic vein from the right side and the Peewee catheter slowly advanced to the left brachiocephalic vein. The catheter was then sutured in place using nylon sutures. The puncture was then closed using a 4-0 Vicryl subcuticular suture. Dermabond was used for a dressing on the puncture site. The white port aspirated and flushed easily and the red port was only able to infuse and not aspirate. They were then packed with heparin. A sterile dressing was applied to the catheter. A VALENTINA was then performed. After this was completed the patient left the operation room in satisfactory condition and tolerated the procedure well. All needle and sponge counts were correct at the end of the procedure. I attest to the content of the Intraoperative Record and any orders documented therein. Any exceptions are noted below.
--- NOTE | 2021-11-08 12:50 | Post Operative Brief Note ---
Cardiology Brief Post Op Date of Surgery November 08, 2021 Pre & Post Diagnosis Operation Date: 10/26/21 07:00 <No data on this case meets the specified criteria> Operation Date: 10/27/21 07:00 Pre-Op Diagnosis: Left displaced femoral neck fracture Post-Op Diagnosis: Left displaced femoral neck fracture Operation Date: 11/01/21 10:30 Pre-Op Diagnosis: (1) Fungemia: (2) Chronic pain syndrome: (3) Cachexia: (4) On total parenteral nutrition (TPN): Post-Op Diagnosis: (1) Fungemia: (2) Chronic pain syndrome: (3) Cachexia: (4) On total parenteral nutrition (TPN): Operation Date: 11/05/21 07:30 <No data on this case meets the specified criteria> Operation Date: 11/08/21 11:00 Pre-Op Diagnosis: lack of venous access Post-Op Diagnosis: lack of venous access Procedure VALENTINA Acid Tank Liner Carlos North MD Ship Washer none Estimated Blood Loss 10 Findings Consistent with Post-Op Diagnosis NO vegetations Specimens Specimen Description: Culture 1. Catheter Tip Drains Juarez Catheter Anesthesia Type General
[2021-11-08] MEDS ORDERED: ePHEDrine sulfate 50 MG/ML AMP ONE (13:00)
--- NOTE | 2021-11-08 13:42 | Pain Management Consultation ---
Date of Consultation November 08, 2021 Assessment & Plan (1) Left displaced femoral neck fracture: (2) Chronic pain syndrome: (3) Cachexia: (4) Small bowel obstruction: (5) History of total left hip arthroplasty: (6) Chronic pain disorder: 1. Recommend continuation of Subutex 8 mg sublingually 3 times daily. In addition recommend discontinuation of IV hydromorphone and oxycodone. Orders were written for hydrocodone 5/325 mg p.o. every 4 hours as needed breakthrough pain. 2. Recommended patient follow-up with her outpatient pain management physician for further alterations to her pain medication regimen. Would recommend writing for only a short-term supply of hydrocodone at discharge. 3. Please call with any questions History of Present Illness Attending Physician: Doreen Rosenberg MD History of Present Illness 56 year old female with a significant history of chronic pain syndrome, left hip fracture with recent left JESSICA, cachexia with TPN treatment, osteoporosis, lumbar compression fractures, and fungemia.She is chronically on buprenorphine 8 mg sublingual 3 times daily for chronic pain over the last 2 years which is mildly efficacious for outpatient pain management physician Dr. Stack. She has been utilizing IV hydromorphone and pain management reconsulted today to assist in preparation for discharge. She states that her pain typically ranges between 5- 10 out of 10 and notes that she will eventually have to discontinue use of IV hydromorphone. She acknowledges that she will need to rely on her Subutex with greater frequency as well as oral breakthrough pain medication. Denies any side effects including constipation or mental sedation with her current volume of opiates. Allergies Allergy/AdvReac Type Severity Reaction Status Date / Time ibuprofen Allergy Intermediate RINGING IN Verified 10/25/21 10:09 EARS,PARTIAL LOSS HEARING ketorolac Allergy Intermediate ROARING Verified 10/25/21 10:09 SOUND IN EARS NSAIDS (Non-Steroidal Allergy Intermediate RINGING IN Verified 10/25/21 10:09 Anti-Inflamma EARS zoledronic acid Allergy Intermediate FLU LIKE Verified 10/25/21 10:09 SYMPTOMS SEVERE HEADACHE vancomycin AdvReac Severe ZACHERY Verified 10/25/21 10:09 SYNDROME alprazolam AdvReac Intermediate LOSS OF Verified 10/25/21 10:09 HEARING aspirin AdvReac Intermediate RINGING IN Verified 10/25/21 10:09 EARS,PARTIAL HEARING LOSS promethazine AdvReac Mild RESTLESS Verified 10/25/21 10:09 LEGS Home Medications Medication Instructions Recorded Confirmed Type buprenorphine HCl 8 mg sublingual 8 mg SUBLINGUAL TID PRN 11/01/20 10/25/21 History tablet amoxicillin 875 mg-potassium 1 tab PO BID 10 Days #20 tab 10/20/21 10/25/21 Rx clavulanate 125 mg tablet Patient History Medical History Anxiety Chronic pain disorder Chronic pancreatitis Esophageal reflux Fatty liver Secondary to chronic TPN use Gastrointestinal tube present Gastrostomy tube in place Hearing deficit Hypersplenism Infected venous access port Iron deficiency anemia IRON INFUSIONS IN PAST Lumbar spinal stenosis Malnutrition Neutropenia On total parenteral nutrition (TPN) 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 Osteoporosis Peripheral neuropathy Radiation enterocolitis Severe protein-energy malnutrition Short bowel syndrome Small bowel obstruction Subclinical hypothyroidism Thoracic compression fracture Urinary incontinence Surgical History History of cholecystectomy History of colonoscopy History of esophagogastroduodenoscopy (EGD) History of kyphoplasty (~2017) History of removal of tunneled central venous catheter (CVC) with port (11/01/21) Removal IV Central Catheter(Not Applicable) - Madhav Harris DO 11/01/21 History of spinal surgery THORACIC AND LUMBAR AREA TUMOR REMOVED 1991 + 1992 - RADIATION 5 WEEKS History of surgery PEG TUBE INSERTION (NOTHING RUNS THROUGH PEG TUBE/USED ONLY FOR RELEASING FOOD PRODUCTS D/T SMALL BOWEL OBSTRUCTION) "PT EATS FOR COMFORT" History of total left hip arthroplasty Port-A-Cath in place BRUNER Status post insertion of percutaneous endoscopic gastrostomy (PEG) tube Family History Mother Diabetes Hypertension Father Family hx of colon cancer Bladder cancer Sister Alcohol abuse Deep vein thrombosis Hypertension Brother Hypertension Grandmother Hypertension Aunt Hypertension Other Cancer Social History Smoking Status: Never smoker Tobacco Type: Cigarettes Age Started Using Tobacco: 12; Age Quit Using Tobacco: 21; Second Hand Exposure: No; Do You Dip or Chew Tobacco: No; Hx Alcohol Use: No Hx Substance Use: No Preferred Language: Croatian Communication Ability: Effective Visual Impairment: No Limitations Email Administrator Required: No Beliefs That Will Affect Care: None marital status: Current Living Situation: Spouse current occupational status: disabled Other Information That Helps Us Care for You: No Feels Safe at Home: Yes Safety Concerns: Feels Safe At This Time caffeine: Yes Dental Care, Regularly: Yes Physical Activity Frequency: Does not Exercise Seatbelt Use: always Sunscreen Use: No Assistive Devices: Walker Physical Exam Constitutional: WD/WN, vitals as above + thin and + frail appearing; no acute distress Respiratory: normal respiratory effort; no respiratory distress Cardiovascular: Rate/Rhythm: regular rate and regular rhythm Skin: no rashes, warm and dry Neurologic: normal touch/pain/proprioception, moves all extremities and awake Initially very sleepy on exam but arousable to voice. Psychiatric: A+Ox3, euthymic affect Eye Contact: + fair eye contact
--- NOTE | 2021-11-08 14:09 | Anesthesiology Progress Note ---
Date of Service November 08, 2021 Anesthesia Post Procedure Vital Signs Vital Signs: Temp Pulse Pulse Resp BP BP Pulse Ox 11/08/21 13:50 97.5 F L 78 16 103/49 L 95 11/08/21 13:40 66 15 99/54 L 94 11/08/21 13:30 68 14 102/56 L 95 11/08/21 13:20 97.2 F L 69 19 103/55 L 96 11/08/21 13:10 80 10 L 103/63 100 11/08/21 13:00 92 H 15 96/60 L 98 11/08/21 12:50 96.8 F L 80 10 L 109/66 97 11/08/21 11:03 98.1 F 67 16 126/66 97 11/08/21 06:53 98.2 F 61 16 111/52 L 97 11/07/21 22:29 98.1 F 65 16 132/75 96 11/07/21 15:00 97.9 F 84 18 135/76 92 Pain Intensity Hip: Pain Intensity: 7 Right Neck: Pain Intensity: 9 Abdomen: Pain Intensity: 9 Back: Pain Intensity: 9 Transfer of Care Handoff Completed per policy Notes Mental Status: alert / awake / arousable and participated in evaluation Patient Amnestic to Procedure: Yes Nausea / Vomiting: adequately controlled Pain: adequately controlled Airway Patency, RR, SpO2: stable & adequate BP & HR: stable & adequate Hydration State: stable & adequate Anesthetic Complications: no major complications apparent and Pt Satisfied with anesthetic care
[2021-11-08] MEDS ORDERED: PERIPHERAL TPN IV SCH (16:00)
[2021-11-08] MEDS ORDERED: CLINOLIPID 20% IV FAT EMULSION 250 ML IV SCH (16:00)
[2021-11-08] MEDS ORDERED: AMINO ACIDS 4.25% IV SCH (16:00)
[2021-11-08] MEDS ORDERED: D5W IV SCH (16:00)
--- NOTE | 2021-11-08 16:22 | XCELERA ---
[id number] [id number]
--- NOTE | 2021-11-08 16:45 | Hospitalist Progress Note ---
Date of Service November 08, 2021 Assessment & Plan (1) Fungemia: Plan: Growing Nicole glabrata complex in blood cultures from 10/26 -Right Port-A-Cath removed by general surgery and catheter tip also growing Nicole glabrata Repeat blood cultures remain negative from 11/04 Continue caspofungin x2-week as VALENTINA negative for valvular vegetation-last day of treatment will be 14 days from 11/04 (last negative BCxs)--> last day 11/18 -Jose catheter placed by vascular surgery on 11/08 (2) Pathological fracture of hip due to age-related osteoporosis: Plan: Status post fall Left displaced femoral neck fracture status post cemented hip arthroplasty 10/27/2021 Weightbearing as tolerated, needs to obey hip precautions Continue PT/OT Vitamin D deficient, resume nutrient supplementation once TPN is able to be resumed DVT prophylaxis with teds and SCDs as per orthopedics due to concerns for giving anticoagulation, however I believe it would be fine for her to have Lovenox once daily after her catheter is replaced -Follow-up with orthopedic surgeon 2-3 weeks out from the surgery date-Dr. Slade Lowery -plan to remove Hackett on day of discharge-she has concerns as she usually has to flex at an acute angle to completely empty her bladder and this is not advisable due to hip precautions--> will plan to send home with [facility] supplies as she has done this before (3) Abnormal LFTs: Plan: In cholestatic pattern, follows with hepatology through [facility] Thought to be secondary to TPN induced cholestasis Improved again on repeat check today Hepatology recommended reducing her lipid intake in her TPN which has resulted in a reduction in her LFTs She also had an outpatient MRCP which showed no evidence of biliary obstruction Continue follow-up with hepatology as an outpatient-GI recommends consideration be given for liver biopsy should her liver enzymes not continue to normalize Once weekly labs while on Caspofungin as well (4) Chronic pseudo-obstruction of small intestine: Plan: 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, on TPN for n utrition since 2001 Prior central catheter removed for fungemia, now with Jose catheter in place for TPN use at home Patient with a PEG which she drains stomach contents, continues to drink fluids for comfort with minimal nutrition from this Continued on PPN pending line replacement-plan to restart home TPN upon discharge KUB stable Counseling provided regarding copious fluid intake and stomach distention, again patient defers this reports it makes her feel better (5) Chronic pain syndrome: Plan: Patient with acute on chronic pain, frustrated by attempts to wean analgesic medications Dilaudid now discontinued by Pain Management on 11/08 Continue nonnarcotic analgesia as tolerated including Lidoderm Continue Subutex 8 mg SL 3 times daily, appreciate pain management consult- recommends hydrocodone however pt does not absorb pills well--> will convert to po oxycodone We will need to coordinate with her outpatient pain management doctor, Dr. Stack in [place], prior to discharge (6) Pancytopenia: Plan: TSH normal, B12 normal, folate normal Copper level normal Likely secondary to liver disease however platelets have improved since admission and there may been some component of sepsis induced thrombocytopenia (7) Chronic pancreatitis: Plan: Noted (8) Fatty liver: Plan: Noted Follows with hepatology (9) On total parenteral nutrition (TPN): Plan: Currently on hold, is on PPN now with replacement of central catheter-can restart home TPN on discharge and f/u with [facility] (10) Severe protein-energy malnutrition: Plan: BMI 18.7 On chronic TPN Managed by [facility] (11) Sinusitis: Plan: No additional treatment for this at this time (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 and need for TPN and chronic venting PEG tube (13) Abnormal chest CT: Plan: Patient with CT chest with DJD, low suspicion for right septic arthritis/osteodiscussed with radiology by previous provider (14) Urinary retention: Plan: Required placement of Hackett catheter Most likely secondary to excessive opioid use but also reports having to use acute hip flexed position to empty bladder Continue Hackett catheter for now and plan trial of void prior to discharge, send home with [facility] supplies which she is familiar with (15) Anxiety: Plan: Longstanding Continue lorazepam as needed here, but would not recommend this after discharge she endorses liking to use ativan to "knock myself out" so she doesn't feel pain (16) Hypokalemia: Plan: Normalized Follow BMP Plan: DVT prophylaxis-SCDs Disposition-PT/OT recommending rehab, but patient does not want to go to rehab and plans to go home with home health, likely on Monday Admission and Anticipated Discharge Date Admission Date: October 26, 2021 Subjective Recently returned from her VALENTINA and Peewee catheter placement. SHe is drowsy but does wake up and answer questions, somewhat confused and tearful at times. Says she has a lot of pain in her neck and back.Cannot take pills and worried about the IV dilaudid being stopped. Also has concerns about being able to urinate after Hackett removed with hip repair because typically she bends as far forward at the hips as she can to empty her bladder. Review of Systems Review of Systems: All systems reviewed & are unremarkable except as noted in HPI & below Physical Exam Constitutional: + thin Eyes: + anicteric sclerae Neck: trachea midline, no thyromegaly Respiratory: normal respiratory effort, lungs clear to auscultation Cardiovascular: RRR, no murmur, no edema Chest (Breasts): Chest: + vascular access device or port; + abnormal inspection of chest (Right anterior chest wall with Peewee catheter in palce) Gastrointestinal (Abdomen): normal bowel sounds, soft, nontender, no hepatosplenomegaly (With PEG tube in place) Musculoskeletal: Extremities: extremities normal to inspection; no cyanosis and no clubbing Skin: no rashes, warm and dry Neurologic: moves all extremities and awake; no focal motor deficits Psychiatric: Orientation: alert, oriented x 3 and cooperative Affect: + tearful affect Lymphatic: no lymphedema Results & Data Results & Data ([facility]) Vital Signs (Past 12 Hours) Vital Signs Temp Pulse Pulse Resp BP Pulse Ox 11/08/21 15:53 36.6 C 75 16 106/66 95 11/08/21 14:50 36.4 C L 70 16 103/55 L 94 11/08/21 14:20 36.5 C 73 16 98/64 L 92 11/08/21 13:50 36.4 C L 78 16 103/49 L 95 11/08/21 13:40 66 15 99/54 L 94 11/08/21 13:30 68 14 102/56 L 95 11/08/21 13:20 36.2 C L 69 19 103/55 L 96 11/08/21 13:10 80 10 L 103/63 100 11/08/21 13:00 92 H 15 96/60 L 98 11/08/21 12:50 36.0 C L 80 10 L 109/66 97 11/08/21 11:03 36.7 C 67 16 126/66 97 11/08/21 06:53 36.8 C 61 16 111/52 L 97 Laboratory Results 11/08/21 11/08/21 11/08/21 Range/Units 12:56 07:09 07:09 WBC 4.72 L (4.8-10.8) K/uL RBC 3.38 L (4.2-5.4) M/uL Hgb 10.3 L (12.0-16.0) g/dL Hct 31.2 L (37-47) % MCV 92.3 (80-100) fL MCH 30.5 (25-34) pg MCHC 33.0 (32-36) g/dL RDW Std Deviation 48.8 H (36.4-46.3) fL RDW Coeff of Esau 14.6 H (11.5-14.5) % Plt Count 234 (130-400) K/uL MPV 10.0 (7.4-10.4) fL Immature Gran % (Auto) 0.2 % Neut % (Auto) 81.6 % Lymph % (Auto) 10.4 % Geary % (Auto) 7.0 % Eos % (Auto) 0.6 % Baso % (Auto) 0.2 % Neut # (Auto) 3.85 (1.4-6.5) K/uL Lymph # (Auto) 0.49 L (1.2-3.4) K/uL Geary # (Auto) 0.33 (0.11-0.59) K/uL Eos # (Auto) 0.03 (0-0.5) K/uL Baso # (Auto) 0.01 (0-0.2) K/uL Immature Gran # (Auto) 0.01 (0.00-0.02) K/uL Sodium 136 (136-145) mmol/L Potassium 4.0 (3.5-5.1) mmol/L Chloride 102 (98-107) mmol/L Carbon Dioxide 30 (21-32) mmol/L Anion Gap 4 (3-11) BUN 29 H (6-23) mg/dl Creatinine 0.60 (0.6-1.2) mg/dl Est Cr Clr Drug Dosing 68.6 ml/min Est GFR ( Amer) 117.3 ml/min Est GFR (Non-Af Amer) 101.2 ml/min BUN/Creatinine Ratio 48.3 H (10-20) Glucose 69 L (70-99(Fasting)) mg/dl POC Glucose 85 (70-99) mg/dl Calcium 7.6 L (8.5-10.1) mg/dl Phosphorus 3.2 (2.5-4.9) mg/dl Magnesium 2.1 (1.7-2.4) mg/dl Total Bilirubin 2.5 H (0.2-1.0) mg/dl Direct Bilirubin 0.8 H (0-0.2) mg/dl AST 35 (13-39) U/L ALT 22 (7-52) U/L Alkaline Phosphatase 283 H (34-104) U/L Total Protein 5.6 L (6.0-8.3) gm/dl Albumin 2.4 L (3.4-5.0) gm/dl PG Care Time/CCT Total # of Minutes Spent Total Time Spent with Patient: Total time spent is greater than 50% in coordination of care (as documented) at patient's floor/unit and/or counseling patient: Coding Level of Care Code 88982 Subseq Hosp Care Lvl 2 Diagnoses Fungemia B49 Pathological fracture of hip due to age-related osteoporosis M80.059A Abnormal LFTs R79.89 Chronic pseudo-obstruction of small intestine K59.89 Chronic pain syndrome G89.4 Pancytopenia D61.818 Chronic pancreatitis K86.1 Fatty liver K76.0 On total parenteral nutrition (TPN) Z78.9 Severe protein-energy malnutrition E43 Sinusitis J32.9 Radiation enterocolitis K52.[address] R93.89 Urinary retention R33.9 Anxiety F41.9 Hypokalemia E87.6
[2021-11-08] MEDS: CASPOFUNGIN 50 MG in SODIUM CHLORIDE 0.9% 250 ML IV SCH (18:22)
[2021-11-08] MEDS: oxyCODONE HCL SOLN 5 MG/5 ML UDC PO PRN (19:42)
[2021-11-08] MEDS ORDERED: STOP CLINOLIPID ONE (22:00)
[2021-11-09] MEDS: oxyCODONE HCL SOLN 5 MG/5 ML UDC PO PRN ×3 (02:22→15:26)
[2021-11-09 07:12] LABS: Albumin Level 2.3 gm/dl (3.4-5.0); BUN Creatinine Ratio 47.4 (10-20); Bilirubin Direct 0.6 mg/dl (0-0.2); Bilirubin,Total 2.1 mg/dl (0.2-1.0); Calcium 7.4 mg/dl (8.5-10.1); Creatinine Clr Calc Pharmacy 72.2 ml/min; Est GFR (African American) 119.3 ml/min; Est GFR (Non-African American) 102.9 ml/min; Magnesium 2.1 mg/dl (1.7-2.4); Phosphorus 3.2 mg/dl (2.5-4.9); Potassium 4.1 mmol/L (3.5-5.1); Total Protein 5.3 gm/dl (6.0-8.3)
[2021-11-09] MEDS: BUPRENORPHINE HCL 8 MG SL SCH ×2 (10:12→14:38)
[2021-11-09] MEDS: LORAZEPAM 0.25 MG IV PRN (10:13)
[2021-11-09] MEDS: LIDOCAINE 5% 1 PATCH TD SCH (10:14)
--- NOTE | 2021-11-09 11:57 | Discharge Summary ---
Date of Service November 09, 2021 Admission HPI Per Admitting Provider Chief Complaint: Generalized weakness, lethargy Primary Care Provider: Kenney Carpenter MD Patient is a 56 y/o F with a PMH of fatty liver, severe protein-energy malnutrition on TPN, SBO, osteoporosis, lumbar spinal stenosis, chronic pain disorder, and anxiety who presents via ambulance with her today due to generalized weakness and possible medication overdose. History is obtained from as patient is very drowsy and having difficulty recalling history. Per , patient was scheduled for an MRI of her liver to investigate a possible mass on Monday and was prescribed Ativan for the procedure. Patient took either one half or 1 whole pill on Monday and was drowsy later on that day. This continued into Monday, patient was more lethargic than usual but still able to ambulate. On Monday, patient was noted to be sleeping much of the day and unable to care for self. states she was walking up the stairs when her legs gave out from under her and she fell, twisting her ankle. There is also an incident where she was walking and her legs gave out on her however was able to catch her. states she did not hit her head or lose consciousness with the fall, had not been complaining of headache or neck pain. Other than patient's chronic pain, the only other pain she complains of is ankle pain due to the fall. A more thorough ROS is unobtainable at this time due to p atient's cognitive status. At baseline, patient manages her own medications. She takes buprenorphine 8 mg TID for chronic pain. Patient's is unaware if she had been taking more buprenorphine than usual, possibly due to confusion regarding previously taken doses due to Ativan effects or to treat her ankle pain from the fall previously mentioned. He is unaware of how much Ativan she was prescribed and if she had access to more after the doses that she took on Monday for MRI. Principal Diagnosis Left hip fracture,Fungemia, infected port Discharge Exam Constitutional + thin Eyes + anicteric sclerae Neck trachea midline, no thyromegaly Respiratory normal respiratory effort, lungs clear to auscultation Cardiovascular RRR, no murmur, no edema Chest (Breasts) Chest: + vascular access device or port; + abnormal inspection of chest (Right anterior chest wall with Peewee catheter in place,no erythema) Gastrointestinal (Abdomen) normal bowel sounds, soft, nontender, no hepatosplenomegaly (With PEG tube in place) Musculoskeletal Extremities: extremities normal to inspection; no cyanosis and no clubbing Skin no rashes, warm and dry left hip with rome in place over incision and c/d/i, no erythema or drainage Neurologic moves all extremities and awake; no focal motor deficits Psychiatric A+Ox3, euthymic affect Orientation: cooperative Lymphatic no lymphedema Discharge Data Allergies Allergy/AdvReac Type Severity Reaction Status Date / Time ibuprofen Allergy Intermediate RINGING IN Verified 10/25/21 10:09 EARS,PARTIAL LOSS HEARING ketorolac Allergy Intermediate ROARING Verified 10/25/21 10:09 SOUND IN EARS NSAIDS (Non-Steroidal Allergy Intermediate RINGING IN Verified 10/25/21 10:09 Anti-Inflamma EARS zoledronic acid Allergy Intermediate FLU LIKE Verified 10/25/21 10:09 SYMPTOMS SEVERE HEADACHE vancomycin AdvReac Severe ZACHERY Verified 10/25/21 10:09 SYNDROME alprazolam AdvReac Intermediate LOSS OF Verified 10/25/21 10:09 HEARING aspirin AdvReac Intermediate RINGING IN Verified 10/25/21 10:09 EARS,PARTIAL HEARING LOSS promethazine AdvReac Mild RESTLESS Verified 10/25/21 10:09 LEGS Consultations 10/25/21 11:46 ED Decision to Admit Stat 10/26/21 07:00 Consult Orthopedic Surgery Routine 10/26/21 14:33 Consult Anesthesiology Routine 10/28/21 10:49 Consult Pain Management Routine 10/29/21 11:25 Consult Gastroenterology Routine 10/31/21 22:37 Consult General Surgery Routine 11/01/21 15:37 Consult Infectious Diseases Routine 11/03/21 16:18 Consult Vascular Surgery Routine Procedures Performed Operation Date: 10/26/21 07:00 Actual Procedures p Selective Nerve Root Injection - Gerard Pepper DO Operation Date: 10/27/21 07:00 Actual Procedures p Left Cemented Hip Hemiarthroplasty(Left) - Slade Lowery MD Operation Date: 11/01/21 10:30 Actual Procedures p Removal IV Central Catheter(Not Applicable) - Madhav Harris DO Operation Date: 11/05/21 07:30 <No data on this case meets the specified criteria> Operation Date: 11/08/21 11:00 Actual Procedures p Insertion of Peewee Catheter, Internal Jugular Approach, Localization of Right Jugular Vein, Fluroscopy for Positioning(Right) - Miguel Lopez MD s Transesophageal Echo(Not Applicable) - Carlos North MD Ordered Studies 10/26/21 09:38 CT abd pelvis IV con only Urgent CT angio chest PE protocol Urgent 10/26/21 14:58 US - OR guided needle placemen Routine 10/27/21 13:49 US - OR guided needle placemen Routine 11/08/21 07:09 EV cvc insrt tunnel wo prt/hearing care professional Routine US EV guide vascular access Routine Hospital Course (1) Fungemia: Growing Nicole glabrata complex in blood cultures from 10/26 -Right Port-A-Cath removed by general surgery and catheter tip also growing Nicole glabrata Repeat blood cultures remain negative from 11/04 Continue caspofungin x2-week as VALENTINA negative for valvular vegetation-last day of treatment will be 14 days from 11/04 (last negative BCxs)--> last day 11/18 -Jose catheter placed by vascular surgery on 11/08 -needs weekly labs with CBC, CMP after discharge Of note, red port of Jose catheter does not draw blood return but can be used for infusion (2) Pathological fracture of hip due to age-related osteoporosis: Status post fall Left displaced femoral neck fracture status post cemented hip arthroplasty 10/27/2021 Weightbearing as tolerated, needs to obey hip precautions Continue PT/OT Vitamin D deficient, resume nutrient supplementation once TPN is able to be resumed DVT prophylaxis with teds and SCDs as per orthopedics due to concerns for giving anticoagulation, however I believe it would be fine for her to have Lovenox once daily after her catheter is replaced -Follow-up with orthopedic surgeon 2-3 weeks out from the surgery date-Dr. Slade Lowery -plan to remove Juarez on day of discharge-she has concerns as she usually has to flex at an acute angle to completely empty her bladder and this is not advisable due to hip precautions--> will plan to send home with [facility] supplies as she has done this before -Ortho to see day of discharge and possibly take rome out (3) Abnormal LFTs: In cholestatic pattern, follows with hepatology through [facility] Thought to be secondary to TPN induced cholestasis Improved again on repeat check today Hepatology recommended reducing her lipid intake in her TPN which has resulted in a reduction in her LFTs She also had an outpatient MRCP which showed no evidence of biliary obstruction Continue follow-up with hepatology as an outpatient-GI recommends consideration be given for liver biopsy should her liver enzymes not continue to normalize Once weekly labs while on Caspofungin as well (4) Chronic pseudo-obstruction of small intestine: 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, on TPN for nutrition since 2001 Prior central catheter removed for fungemia, now with Jose catheter in place for TPN use at home Patient with a PEG which she drains stomach contents, continues to drink fluids for comfort with minimal nutrition from this Continued on PPN pending line replacement-plan to restart home TPN upon discharge KUB stable Counseling provided regarding copious fluid intake and stomach distention, again patient defers this reports it makes her feel better (5) Chronic pain syndrome: Patient with acute on chronic pain, frustrated by attempts to wean analgesic medications Dilaudid now discontinued by Pain Management on 11/08 Continue Subutex 8 mg SL 3 times daily, appreciate pain management consult- recommends hydrocodone however pt does not absorb pills well--> will convert to po oxycodone liquid version for short term supply -was ambulating halls with rolling walker day of discharge and pain controlled We will need to coordinate with her outpatient pain management doctor, Dr. Stack in [place] [employer], prior to discharge-Nurse Navigator to inform him of her discharge with short supply of oxycodone (6) Pancytopenia: TSH normal, B12 normal, folate normal Copper level normal Likely secondary to liver disease however platelets have improved since admission and there may been some component of sepsis induced thrombocytopenia (7) Chronic pancreatitis: Noted (8) Fatty liver: Noted Follows with hepatology (9) On total parenteral nutrition (TPN): Currently on hold, is on PPN now with replacement of central catheter-can restart home TPN on discharge and f/u with [facility] (10) Severe protein-energy malnutrition: BMI 18.7 On chronic TPN Managed by [facility] (11) Sinusitis: No additional treatment for this at this time (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 and need for TPN and chronic venting PEG tube (13) Abnormal chest CT: Patient with CT chest with DJD, low suspicion for right septic arthritis/osteodiscussed with radiology by previous provider (14) Urinary retention: Required placement of Juarez catheter Most likely secondary to excessive opioid use but also reports having to use acute hip flexed position to empty bladder dc Juarez catheter with trial of void prior to discharge, send home with [facility] supplies which she is familiar with will need to be on hip precautions for 6 weeks post-op (4 more weeks) and then can lean forward again which helps her empty her blader (15) Anxiety: Longstanding Continue lorazepam as needed here, but would not recommend this after discharge she endorses liking to use ativan to "knock myself out" so she doesn't feel pain (16) Hypokalemia: Normalized Follow BMP DVT prophylaxis-SCDs only recommended by Ortho Disposition-PT/OT recommending rehab, but patient does not want to go to rehab and plans to go home with home health,dc to home today Total Time Total Time Spent Total Time Spent (In Minutes): 35 min Discharge Plan Discharge Items Patient Disposition: Home - Home Health Services Reason For Visit: UNINTENTIONAL OVERDOSE, Fall, hip fracture Discharge Diagnosis: Left Hip Replacement for fracture Fungemia,infected port Condition on Discharge: Fair Activity: Per Instructions section Activity Comment: Follow/Obey hip precautions at all times. Weightbearing: Full weightbearing Weightbearing Comment: Weightbear as tolerated obeying hip precautions at all times. Non-emergency contact: Primary Care Provider, Surgeon and Presidential Support Specialist Call non-emergency contact if: you have any medication questions, your symptoms worsen, your pain is not controlled, you have a fever, your wound has increased redness, your wound has increased drainage and your wound pain has increased Follow-up/Referrals: Kenney Carpenter MD [Primary Care Provider] - (Follow up within 1-2 weeks) Slade Lowery MD [Physician] - (Orthopedic follow-up 2-3 weeks from surgery date.) Diet: Clear liquid Diet Comment: with venting from PEG tube Addtl Attending Provider Instructions: ACTIVITY RECOMMENDATIONS: Physical Therapy: * Aggressive physical therapy is not usually needed. You will learn to take care of yourself safely and walk. * Follow the "Hip Precautions Instructions." * In some cases, the outreach and education social worker at the hospital will arrange to have a therapist come to your house for the first couple of weeks to help you learn these skills. * You need to practice on your own or with the help of a family member as needed. * When you learn these skills, most of the therapy can be done on your own. Home Exercise: * You were shown a series of exercises in the hospital. Do these exercises three to four times each day including the exercises you were shown in physical therapy. Walking: * Get up and walk several times each day. For the first four weeks, try not to stand or walk for more than one hour at a time. If you do stand or walk for more than one hour, you will not hurt anything, but your leg will likely swell. * As you feel comfortable, you may change from the walker or crutches to a cane and then to independent walking. "VERY IMPORTANT TO READ AND REVIEW" Pain: * The immediate post-operative period after hip replacement surgery is often quite painful. * You are given a prescription for pain medicine. You should take it, as directed, when you need it, especially before physical therapy and before going to bed. Pain that interferes with sleep is very common and can last several months. * You will likely need pain medicine for the first two to four weeks. It will not stop all of the pain. The pain will lessen and as you feel better, you may change to milder pain medicine such as Tylenol. * The most common side effects of pain medicine are nausea and constipation, so don't take more than you need. SPECIAL CARE INSTRUCTIONS: TEDs/Elastic Stockings: * The white elastic stockings help limit swelling and prevent blood clots from forming in your legs. The more you wear them, the more they work. * Wear them for six weeks. Prevention of Infection: * Take antibiotics one hour before any dental cleaning, dental work, urological procedure, gastrointestinal procedure or any invasive surgery in order to prevent your new joint from getting infected. * You may get the antibiotics from the doctor performing the procedure or you may call our office at before and we will call in a prescription to the pharmacy of your choice. Things to Watch For: * Drainage from the incision site that occurs more than one week after your surgery. * Severely increased leg pain or swelling. * Increased redness at the incision site. * Fever above 102 degrees Fahrenheit. * Unusual chest pain or shortness of breath. * Unusual pain or burning with urination. Call [facility] at with any of the above problems or if you have any questions about your medicines or recovery. FOLLOW UP VISIT: Make an appointment to see your doctor for approximately two weeks after surgery for a progress check and staple removal by calling the office at . Addtl Archives Director Provider Instructions: You can take a short time supply of oxycodone liquid every 4 hours as needed for breakthrough pain. Please follow up with your Pain Management doctor within 1 week. You will need 9 more days of your IV antibiotic for your blood stream Nicole infection. You had your old port removed and a new one placed for your TPN use. The old port was infected. Your Juarez catheter was removed. You are not allowed to bend forward at the waist more than 90 degrees until 4 weeks from now. If you are not able to completely empty your bladder, you will need to self- catheterize your bladder with the supplies from your home health company. You will need once weekly labs with CBC, CMP while on the IV antibiotics with results sent to your PCP. Please continue your usual follow up with GI and Nutrition for your TPN management. Pending Studies at Discharge: No Stand-Alone Forms: My [facility], Smoking Cessation Medications and DC Order Prescriptions: New oxycodone 5 mg/5 mL Solution 5 mg PO Q4 PRN (Reason: breakthrough pain, severe) Qty: 473 RF: 0 melatonin 3 mg Tablet 3 mg PO HS PRN (Reason: sleep) Qty: 30 RF: 0 caspofungin 50 mg recon soln 50 mg IV DAILY Qty: 9 RF: 0 Continued buprenorphine HCl 8 mg tablet, sublingual 8 mg SUBLINGUAL TID PRN (Reason: Pain) RF: 0 Discontinued amoxicillin-pot clavulanate 875-125 mg tablet 1 tab PO BID 10 Days Qty: 20 RF: 0 Discharge Orders: Discharge Order (Routine); Ordered 11/09/21 Ordered By: Doreen Rosenberg Admission Data Admit Date/Time: 10/26/21 08:56 Attending Provider: Doreen Rosenberg Admit Provider: Kenney Milian Primary Care Provider: Kenney Carpenter Other Providers: [facility] ; Kenney Milian ; Anuel Baxter ; Gerard Pepper ; Megan Harris ; Mo Mercedes ; Maikel King ; Ysabel Suarez ; Glenn Lowery I. ; Amanuel Marrero II ; Miladis Disla ; Leonard Grover ; Nicho Epps ; Miguel Lopez ; Madhav Harris Coding Level of Care Code D/C DAY MANAGEMENT >30 MINS Diagnoses Fungemia B49 Pathological fracture of hip due to age-related osteoporosis M80.059A Abnormal LFTs R79.89 Chronic pseudo-obstruction of small intestine K59.89 Chronic pain syndrome G89.4 Pancytopenia D61.818 Chronic pancreatitis K86.1 Fatty liver K76.0 On total parenteral nutrition (TPN) Z78.9 Severe protein-energy malnutrition E43 Sinusitis J32.9 Radiation enterocolitis K52.[address] R93.89 Urinary retention R33.9 Anxiety F41.9 Hypokalemia E87.6
--- NOTE | 2021-11-09 14:19 | Progress Notes ---
DATE OF NOTE: 11/09/2021 SUBJECTIVE: A 56-year-old female, now 13 days out from a left cemented bipolar hip arthroplasty for fracture. She had multiple other comorbidities. Her hip is doing pretty well. Having some soreness , but seems to be getting better daily. No new complaints. OBJECTIVE: VITAL SIGNS: Temperature is 36.8. Vital signs are stable. GENERAL: Shows a thin, cachectic, middle-aged female. She is sitting up at her bedside, talking on the phone when I visited her today. EXTREMITIES: Examination of the left hip reveals the leg lengths to be equal. Her incision is clean and dry without signs of drainage. She is neurologically intact. ASSESSMENT: A 56-year-old female, now 13 days out from a left cemented bipolar hip arthroplasty for fracture, doing reasonably well from the orthopedic standpoint, she has got multiple other medical co morbidities. PLAN: At this point, we are going to remove her rome. She is planning on being discharged today. We will Steri-Strip her wound. She needs to obey hip precautions. She can weight bear as tolerate d. She can wear her ERASMO stockings for another 4 weeks. I need to see her back in a month out from s urgery date. Any orthopedic questions can be directed to me at [phone]. Job ID: [id number]
[2021-11-09 14:43] VITALS: BP 114/72; PULSE 68; TEMP 97.5; O2SAT 98
[2021-11-09] MEDS: CASPOFUNGIN 50 MG in SODIUM CHLORIDE 0.9% 250 ML IV SCH (15:23)
--- NOTE | 2021-11-12 13:20 | Coding Query ---
CODING QUERY To promote full compliance with coding requirements relating to patient care, provider participation is requested in all cases of marketing sales representative uncertainty. Please assist us with the question(s) below: Coding Question(s): The patient was Observation on 10/25 and admitted as Inpatient on 10/26. Please specify below, in your clinical opinion, the diagnosis most responsible for occasioning the Inpatient admission on 10/26. ( ) Infected Port, Fungemia (x ) Left Hip Fracture ( ) Accidental Overdose ( ) Other: Please Specify Physician's Response(s): Thank you Brooke Gonzales Principal Diagnosis: "that condition established after study, to be chiefly responsible for occasioning the admission of the patient to the hospital for care." Co-Existing Principal Diagnosis: "when two or more diagnoses equally meet the criteria for principal diagnosis as determined by the circumstances of admission, diagnostic work up, and/or therapy provided, and the Alphabetic Index, Tabular List, or another coding guideline does not provide sequencing direction, any one of the diagnoses may be sequenced first." "When the physician has documented what appears to be a current diagnosis in the body of the record, but has not included the diagnosis in the final diagnostic statement, the physician should be asked whether the diagnosis should be added." (Source Coding [facility] 2 QTR90. p3-4) YOLANDA
== END 2021-11-09 17:30 | disposition home health service (06) | DRG 521 ==
LOC: ED 08:54 → EDINP 08:54 → SUATTDRO 12:52 → 2W 15:44 → SUATTDRO 10-26 08:56 → 2W 10-26 13:31 → 3W 10-28 18:06

== ENCOUNTER 2022-01-20 14:16 | Inpatient (IN) ==
[2022-01-20] MEDS ORDERED: ACETAMINOPHEN 1,000 MG/100 ML VIAL IV STA (14:29)
[2022-01-20] MEDS ORDERED: SODIUM CHLORIDE 0.9% 1000ML 1,000 ML IV ONE (14:29)
--- NOTE | 2022-01-20 14:46 | XRay Report ---
XR chest 1V portable CLINICAL HISTORY: Atypical chest pain TECHNIQUE: Single frontal radiograph of the chest was obtained. Comparison: Comparison is made to chest radiograph 10/14/2021 and thoracic spine 12/29/2021 FINDINGS: Tubing overlies the right chest is unchanged from thoracic spine radiographs 10/14/2021. The aorta is t ortuous. The remainder of the cardiomediastinal silhouette is unremarkable. Prominence and cephalizat ion of the vasculature is seen. No evidence of pleural effusion or pneumothorax. IMPRESSION: Mild pulmonary edema. ACT 112: Negative or not required by law. Electronically signed by: Ruddy Hurtado M.D. 01/20/2022 2:44 PM
[2022-01-20] MEDS ORDERED: MoRPHine SULFATE 2 MG/ML CARP IV STA ×2 (15:06→18:52)
[2022-01-20] MEDS ORDERED: LIDOCAINE 5% 1 PATCH TD STA (15:06)
[2022-01-20 16:24] LABS: Influenza A virus by PCR Negative (Neg); Influenza B virus by PCR Negative (Neg); RSV by PCR Negative (Neg); SARS CoV2 RNA(COVID-19) InHosp NEGATIVE (Negative)
[2022-01-20 16:35] LABS: Hematocrit (blood only) 25.4 % (37-47); Hemoglobin 8.2 g/dL (12.0-16.0); Mean Corpuscular Hemoglobin 27.8 pg (25-34); Mean Corpuscular Hgb Conc 32.3 g/dL (32-36); Mean Corpuscular Volume 86.1 fL (80-100); Mean Platelet Volume 12.1 fL (7.4-10.4); Platelet Count 116 K/uL (130-400); RDW Coefficient of Variation 15.8 % (11.5-14.5); RDW Standard Deviation 49.4 fL (36.4-46.3); Red Blood Count 2.95 M/uL (4.2-5.4); White Blood Count 3.72 K/uL (4.8-10.8)
[2022-01-20 16:36] LABS: Eosinophils # (auto) 0.01 K/uL (0-0.5); Eosinophils % (auto) 0.3 %; Lymphocytes % (auto) 8.1 %; Monocytes % (auto) 8.1 %; Neutrophils # (auto) 3.11 K/uL (1.4-6.5); Neutrophils % (auto) 83.5 %; Platelet Estimate Decreased (Normal)
[2022-01-20 16:39] LABS: Albumin Globulin Ratio 0.7 (0.9-2); Albumin Level 2.7 gm/dl (3.4-5.0); BUN Creatinine Ratio 61.4 (10-20); Bilirubin Direct 2.6 mg/dl (0-0.2); Bilirubin,Total 4.6 mg/dl (0.2-1.0); Calcium 8.3 mg/dl (8.5-10.1); Creatinine Clr Calc Pharmacy 73.5 ml/min; Est GFR (African American) 118.4 ml/min; Est GFR (Non-African American) 102.2 ml/min; Globulin 3.9 gm/dl (2.5-4.0); Phosphorus 3.2 mg/dl (2.5-4.9); Potassium 3.6 mmol/L (3.5-5.1); Total Protein 6.6 gm/dl (6.0-8.3)
[2022-01-20] MEDS ORDERED: OPTIRAY 320 100ml IV ONE (17:58)
[2022-01-20 18:10] LABS: Lyme Ab IgM w/WB Rflx Negative (Negative)
[2022-01-20 18:12] LABS: Lyme Ab IgG w/WB Rflx Positive (Negative)
--- NOTE | 2022-01-20 18:44 | CT Scan Report ---
CT chest diagnostic w con CLINICAL HISTORY: RUE swelling, picc line TECHNIQUE: Multidetector row helical CT of the chest was performed. Coronal and sagittal reformations were obtained. Automated dose lowering techniques and/or adjustment according to patient size were u tilized for this exam. CT DOSE: 582.08 mGy.cm Comparison: Comparison is made to CT chest 10/26/2021 FINDINGS: Lungs and pleura: Groundglass and consolidative opacities are seen are seen most prominent in the rig ht upper lobe. Atelectasis is seen. Heart and pericardium: Heart size is normal. No pericardial effusion. Vessels: A right-sided venous catheter terminates in the azygos vein. There is apparent stenosis of t he distal SVC. Prominent contrast is noted in right upper extremity veins and numerous collaterals of the abdomen as well as the azygos vein. Mediastinum and luis: Unremarkable. Chest wall and lower neck: Unremarkable. Abdomen: For findings below the diaphragm, please refer to CT of the abdomen dated the same. Bones: Multilevel degenerative changes are seen with cemented arthroplasties noted. No acute abnormal ities are seen. IMPRESSION: 1. Groundglass and consolidative opacities most prominent in the right upper lobe are concerning for pneumonia. 2. Apparent stenosis of the distal SVC. There is prominence of venous collaterals to the abdomen as well as the azygos vein. ACT 112: Negative or not required by law. Electronically signed by: Ruddy Hurtado M.D. 01/20/2022 6:42 PM
--- NOTE | 2022-01-20 18:57 | CT Scan Report ---
CT abd pelvis IV con only CLINICAL HISTORY: jaundice TECHNIQUE: Helical axial images of the abdomen and pelvis were obtained and displayed. Automated dose lowering techniques and/or adjustment according to patient size were utilized for this exam. This e xam was performed with intravenous contrast. COMPARISON: Comparison is made to CT abdomen pelvis 10/26/2021 FINDINGS: Lower chest: For findings above the diaphragm, please see CT chest performed same day. Liver: The liver is relatively hyperdense. Gallbladder and biliary tree: Patient is status post cholecystectomy. No intra- or extrahepatic bilia ry ductal dilation. Pancreas: Unremarkable, no focal lesions. Spleen: Unremarkable. Adrenals: Unremarkable. Kidneys and ureters: Unremarkable. Bladder: Unremarkable. Reproductive organs: Unremarkable. Bowel: A gastrostomy tube is seen. Distended loops of small bowel are seen in the abdomen, slightly m ore prominent than in the prior exam. Lymph nodes Retroperitoneal: Unremarkable. Mesenteric: Unremarkable. Pelvic: Unremarkable. Peritoneum: Mild ascites is seen. Vessels: Atherosclerotic calcifications are seen. Abdominal wall: Unremarkable. Bones: There is a total left hip prosthesis. Degenerative changes are seen in the spine. Old healed r ib fractures are seen bilaterally. Old compression deformities are seen in the spine. IMPRESSION: Hypodensity of the liver may represent hepatitis or steatosis. Redemonstration of chronically distend ed small bowel loops, somewhat more enlarged than in the prior exam. Mild ascites is seen. ACT 112: Negative or not required by law. Electronically signed by: Ruddy Hurtado M.D. 01/20/2022 6:54 PM
--- NOTE | 2022-01-20 20:57 | Emergency Department Note ---
Impression & Plan Jaundice, On total parenteral nutrition (TPN), Severe protein-energy malnutrition, Pitting edema, Hepatic steatosis, Gastrointestinal tube present ED Provider Note NAME: RUTH CHAHAL AGE: 57 SEX: F ARRIVES VIA: Walk-In INFORMANT: Patient ED PROVIDER(S): Ranjeet So MD CHIEF COMPLAINT: Jaundice, pain, edema PLAN: Disposition: Admit MEDICAL DECISION MAKING: The patient is a pleasant 56-year-old woman with a complicated past medical history of fatty liver, severe protein-energy malnutrition on TPN, history of radiation enterocolitis, chronic partial SBO s/p PEG, osteoporosis, lumbar spinal stenosis, chronic pain syndrome on chronic buprenorphine, anxiety, history of chronic pancreatitis who presents to the emergency department for ev aluation increasing edema over the past several weeks with particular increased swelling of her left leg which had ongoing swelling for which she was seen in emergency department last month by this provider and was diagnosed with a popliteal cyst as well as swelling of her right upper extremity. Of note, during the patient's last ED visit it was noted that her PICC line appears to terminate in the azygous vein. This was reviewed with vascular surgery and it was recommended that the patient follow-up outpatient which the patient reports that she did not do. The patient reports that she recently had changes to her TPN where her lipids were increased due to concern that she was losing weight and becoming more malnourished. Since this change she does admit that she has become more jaundiced and edematous. He reports worsening of all her chronic pain complaints including her back extremities which she reports is related to her swelling. She denies fevers but reports that she "does not get fevers anymore". She denies any cough or congestion. She denies any particular changes in the functioning of her PEG tube in the setting of her chronic pseudoobstructions. Her PEG tube was replaced last month uneventfully by this provider in the emergency department. Reports that she had an appoint with orthopedics to possibly evaluate her popliteal cyst for drainage but she reports she was contacted that the appointment needed to be rescheduled. Review of records do show history of recommendations to avoid narcotic analgesia given her history of chronic partial SBO. On arrival the patient is chronically ill-appearing no distress, afebrile with stable vital signs. He has 2+ edema of the left lower extremity with skin erythema of the lower leg without significant warmth. She has 1+ edema of the right lower extremity without discoloration or tenderness. She has 1+ pitting edema of the right upper extremity without discoloration or tenderness. Chronic kyphosis of the thoracic spine. There is a chronic ulcer over mid thoracic region that appears stable. She has no bony crepitus. WBC 3.7, similar to prior values. H/H 8.2/25.4 decreased from recent however similar to prior range of values. Platelets 116K proximate to prior range of values. Chemistry without metabolic acidosis. BUN/creat>60 consistent with the patient's failure to thrive. Lactic acid 0.5, within normal limits. Total bilirubin is 4.6 with direct bilirubin 2.6 increased from patient's baseline ra nge. AST and ALT are stable from patient's baseline however alk phos is 549, increased from patient's baseline range. Albumin is 2.7 downtrending and consistent with the patient's failure to thrive. CPK within normal limits. High-sensitivity troponin was 15.9, nonspecific. Lipase not elevated. Procalcitonin is not significantly elevated. Lyme screen demonstrates positive Ig G antibody which is similar to previous screening tests. IgM is negative. Will defer decision for treatment per Western blot. Covid-19 PCR negative. Influenza and RSV PCR negative. CT of the chest and abdomen pelvis were performed. CT of the abdomen pelvis demonstrates chronically distended bowel loops. Evidence of hepatitis/steatosis is also seen. CT of the chest with question of pneumonia however patient does not report cough or congestion. Note is made of PICC line terminating in the azygous vein and comment on possible stenosis of the distal SVC. There is prominence of venous collaterals to the abdomen as well as the azygos vein. Given the patient's worsening jaundice in the setting of her chronic protein calorie malnutrition with evidence of failure to thrive she does agree with plan for admission for further management. Case was discussed with Dr. Amin, [facility] hospitalist, who will evaluate the patient for admission. Triage Nursing notes reviewed and agree them. Prior medical records reviewed Vital Signs: reviewed and remarkable for no significant abnormalities Differential diagnosis: Infection, dehydration, metabolic abnormality, hypo/hyperglycemia, electrolyte disturbance, anemia, hypoxia, cardiac sources, intracerebral event, toxicologic, neurologic, as well as other pathologies. ER treatment provided: See below. Diagnostics interpreted by me: ECG: Sinus rhythm with occasional PVCs, 74 bpm, no overt ST elevation or depression, QTC 446, QRS 114 Cardiac Monitoring: An order for continuous cardiac monitoring was placed and demonstrated sinus rhythm, 74 bpm, occasional PVCs. Laboratory studies: See below Imaging studies: See below Consultation(s): Dr. Amin, [facility] hospitalist, who will evaluate the patient for admission. HPI: The patient is a pleasant 56-year-old woman with a complicated past medical history of fatty liver, severe protein-energy malnutrition on TPN, history of radiation enterocolitis, chronic partial SBO s/p PEG, osteoporosis, lumbar spinal stenosis, chronic pain syndrome on chronic buprenorphine, anxiety, history of chronic pancreatitis who presents to the emergency department for evaluation increasing edema over the past several weeks with particular increased swelling of her left leg which had ongoing swelling for which she was seen in emergency department last month by this provider and was diagnosed with a popliteal cyst as well as swelling of her right upper extremity. Of note, during the patient's last ED visit it was noted that her PICC line appears to terminate in the azygous vein. This was reviewed with vascular surgery and it was recommended that the patient follow-up outpatient which the patient reports that she did not do. The patient reports that she recently had changes to her TPN where her lipids were increased due to concern that she was losing weight and becoming more malnourished. Since this change she does admit that she has become more jaundiced and edematous. He reports worsening of all her chronic pain complaints including her back extremities which she reports is related to her swelling. She denies fevers but reports that she "does not get fevers anymore". She denies any cough or congestion. She denies any particular changes in the functioning of her PEG tube in the setting of her chronic pseudoobstructions. Her PEG tube was replaced last month uneventfully by this provider in the emergency department. Reports that she had an appoint with orthopedics to possibly evaluate her popliteal cyst for drainage but she reports she was contacted that the appointment needed to be rescheduled. Review of records do show history of recommendations to avoid narcotic analgesia given her history of chronic partial SBO. ROS: See above HPI for pertinent positives & negatives. A total of 10 systems reviewed and were otherwise negative. VITALS:See Below PHYSICAL EXAMINATION: GENERAL: Awake, alert, acute on chronically-ill appearing, in no distress HENT: Normocephalic, atraumatic. Oropharynx with dry mucous membranes and o therwise unremarkable. EYES: Normal conjunctiva. Sclera are icteric. NECK: Supple. No nuchal rigidity. FROM. No JVD. RESPIRATORY: Clear to auscultation. CARDIAC: Regular rate, normal rhythm. Extremities warm and well perfused. Pulses equal. ABDOMEN: Soft, non-distended. No tenderness to palpation. No rebound or guarding. Mild anasarca. PEG tube site clean dry and intact. RECTAL: Deferred. MUSCULOSKELETAL: Chest examination reveals no tenderness. Right upper chest wall PICC line site clean dry and intact. The back is symmetrical on inspection without obvious abnormality. There is no CVA tenderness to palpation. LOWER EXTREMITIES: Calves are equal size bilaterally and non-tender. Pitting edema: 2+ edema of the left lower extremity with mild erythema without significant warmth or tenderness. With 1+ edema of the right lower extremity. 1+ edema of the right upper extremity. NEURO: Normal sensorium. No sensory or motor deficits noted. SKIN: No rash. Mild jaundice noted. 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 Osteoporosis Overdose Peripheral neuropathy Radiation enterocolitis Severe protein-energy malnutrition Short bowel syndrome Subclinical hypothyroidism Thoracic compression fracture Urinary incontinence Surgical History History of cholecystectomy History of colonoscopy History of esophagogastroduodenoscopy (EGD) History of kyphoplasty (~2018) History of removal of tunneled central venous catheter (CVC) with port (11/01) Removal IV Central Catheter(Not Applicable) - Madhav Harris DO 11/01/21 History of spinal surgery THORACIC AND LUMBAR AREA TUMOR REMOVED 1991 + 1992 - RADIATION 5 WEEKS History of surgery PEG TUBE INSERTION (NOTHING RUNS THROUGH PEG TUBE/USED ONLY FOR RELEASING FOOD PRODUCTS D/T SMALL BOWEL OBSTRUCTION) "PT EATS FOR COMFORT" History of total left hip arthroplasty Port-A-Cath in place BRUNER Status post insertion of percutaneous endoscopic gastrostomy (PEG) tube Family History Mother Diabetes Hypertension Father Family hx of colon cancer Bladder cancer Sister Alcohol abuse Deep vein thrombosis Hypertension Brother Hypertension Grandmother Hypertension Aunt Hypertension Other Cancer Social History Smoking Status: Former smoker Tobacco Type: Cigarettes Age Started Using Tobacco: 12; Age Quit Using Tobacco: 21; Second Hand Exposure: No; Hx Alcohol Use: No Hx Substance Use: No Preferred Language: [place] Communication Ability: Effective Visual Impairment: No Limitations Financial Aid Required: No Beliefs That Will Affect Care: None marital status: Current Living Situation: Spouse current occupational status: disabled Feels Safe at Home: Yes caffeine: Yes Dental Care, Regularly: Yes Physical Activity Frequency: Does not Exercise Seatbelt Use: always Sunscreen Use: No Assistive Devices: Walker Allergies Allergies Allergy/AdvReac Type Severity Reaction Status Date / Time ibuprofen Allergy Intermediate RINGING IN Verified 01/20/22 20:15 EARS,PARTIAL LOSS HEARING ketorolac Allergy Intermediate ROARING Verified 01/20/22 20:15 SOUND IN EARS NSAIDS (Non-Steroidal Allergy Intermediate RINGING IN Verified 01/20/22 20:15 Anti-Inflamma EARS zoledronic acid Allergy Intermediate FLU LIKE Verified 01/20/22 20:15 SYMPTOMS SEVERE HEADACHE vancomycin AdvReac Severe ZACHERY Verified 01/20/22 20:15 SYNDROME alprazolam AdvReac Intermediate LOSS OF Verified 01/20/22 20:15 HEARING aspirin AdvReac Intermediate RINGING IN Verified 01/20/22 20:15 EARS,PARTIAL HEARING LOSS promethazine AdvReac Mild RESTLESS Verified 01/20/22 20:15 LEGS Home Meds Home Medications Medication Instructions Recorded Confirmed buprenorphine HCl 8 mg sublingual 8 mg SUBLINGUAL TID 11/01/20 01/20/22 tablet Previous Rx's Medication Instructions Recorded oxycodone 5 mg/5 mL oral solution 5 mg PO Q4 PRN #473 ml 11/10/21 cyclobenzaprine 5 mg tablet 5 mg PO DAILY PRN #20 tab 01/04/22 diclofenac sodium 1 % topical gel 4 g TOPICAL QID #300 g 01/04/22 Results & Data (ED) Vital Signs Vital Signs - 24 hr 01/20/22 14:20 01/20/22 14:44 01/20/22 15:32 Temperature 36.6 C Temperature Source Oral Pulse Rate 83 70 Pulse Rate [Right Finger] 78 Pulse Rhythm Regular Pulse Rhythm [Right Finger] Regular Pulse Strength [Right Finger] Normal Respiratory Rate 20 18 17 Respiratory Effort / Characteristics Non-Labored Spontaneous Respiratory Depth Normal Respiratory Pattern Regular Blood Pressure 160/81 H Blood Pressure [Left Arm] 135/71 Blood Pressure Mean 107 Blood Pressure Mean [Left Arm] 92 Blood Pressure Position Sitting Blood Pressure Position [Left Arm] Lying Pulse Oximetry 96 99 97 Oxygen Delivery Method Room Air Room Air Room Air Sepsis Recent Fever Within 48 Hours No Sepsis New/Unexplained Change in Mental Status No Sepsis Action Taken by Nursing No Action Required 01/20/22 16:38 01/20/22 17:00 01/20/22 19:00 Temperature Temperature Source Pulse Rate Pulse Rate [Right Finger] 66 71 70 Pulse Rhythm Pulse Rhythm [Right Finger] Regular Regular Pulse Strength [Right Finger] Normal Normal Respiratory Rate 17 17 18 Respiratory Effort / Characteristics Non-Labored Spontaneous Non-Labored Respiratory Depth Normal Normal Respiratory Pattern Blood Pressure Blood Pressure [Left Arm] 143/69 H 156/86 H 156/86 H Blood Pressure Mean Blood Pressure Mean [Left Arm] 93 109 109 Blood Pressure Position Blood Pressure Position [Left Arm] Lying Lying Pulse Oximetry 99 98 98 Oxygen Delivery Method Room Air Room Air Sepsis Recent Fever Within 48 Hours Sepsis New/Unexplained Change in Mental Status Sepsis Action Taken by Nursing 01/20/22 22:21 Temperature Temperature Source Pulse Rate Pulse Rate [Right Finger] 78 Pulse Rhythm Pulse Rhythm [Right Finger] Pulse Strength [Right Finger] Respiratory Rate 16 Respiratory Effort / Characteristics Respiratory Depth Respiratory Pattern Blood Pressure Blood Pressure [Left Arm] 149/75 H Blood Pressure Mean Blood Pressure Mean [Left Arm] 99 Blood Pressure Position Blood Pressure Position [Left Arm] Pulse Oximetry 95 Oxygen Delivery Method Sepsis Recent Fever Within 48 Hours Sepsis New/Unexplained Change in Mental Status Sepsis Action Taken by Nursing Laboratory Data Attestation: I reviewed the patient's lab results. Result diagrams: 01/20/22 15:00 01/20/22 15:00 Lab Results 01/20/22 01/20/22 01/20/22 Range/Units 15:00 15:00 15:00 WBC 3.72 L (4.8-10.8) K/uL RBC 2.95 L (4.2-5.4) M/uL Hgb 8.2 L (12.0-16.0) g/dL Hct 25.4 L (37-47) % MCV 86.1 (80-100) fL MCH 27.8 (25-34) pg MCHC 32.3 (32-36) g/dL RDW Std Deviation 49.4 H (36.4-46.3) fL RDW Coeff of Esau 15.8 H (11.5-14.5) % Plt Count 116 L (130-400) K/uL MPV 12.1 H (7.4-10.4) fL Immature Gran % (Auto) 0.0 % Neut % (Auto) 83.5 % Lymph % (Auto) 8.1 % Haskell % (Auto) 8.1 % Eos % (Auto) 0.3 % Baso % (Auto) 0.0 % Neut # (Auto) 3.11 (1.4-6.5) K/uL Lymph # (Auto) 0.30 L (1.2-3.4) K/uL Haskell # (Auto) 0.30 (0.11-0.59) K/uL Eos # (Auto) 0.01 (0-0.5) K/uL Baso # (Auto) 0.00 (0-0.2) K/uL Immature Gran # (Auto) 0.00 (0.00-0.02) K/uL Platelet Estimate Decreased L (Normal) Sodium 138 (136-145) mmol/L Potassium 3.6 (3.5-5.1) mmol/L Chloride 102 (98-107) mmol/L Carbon Dioxide 27 (21-32) mmol/L Anion Gap 9 (3-11) BUN 35 H (6-23) mg/dl Creatinine 0.57 L (0.6-1.2) mg/dl Est Cr Clr Drug Dosing 73.5 ml/min Est GFR ( Amer) 118.4 ml/min Est GFR (Non-Af Amer) 102.2 ml/min BUN/Creatinine Ratio 61.4 H (10-20) Glucose 80 (70-99(Fasting)) mg/dl Lactate (0.4-2.0) mmol/L Calcium 8.3 L (8.5-10.1) mg/dl Phosphorus 3.2 (2.5-4.9) mg/dl Magnesium 2.0 (1.7-2.4) mg/dl Total Bilirubin 4.6 H (0.2-1.0) mg/dl Direct Bilirubin 2.6 H (0-0.2) mg/dl AST 153 H (13-39) U/L ALT 98 H (7-52) U/L Alkaline Phosphatase 549 H (34-104) U/L Total Creatine Kinase 160 (26-192) U/L Troponin I High Sens 15.9 H (0-14) pg/ml Total Protein 6.6 (6.0-8.3) gm/dl Albumin 2.7 L (3.4-5.0) gm/dl Globulin 3.9 (2.5-4.0) gm/dl Albumin/Globulin Ratio 0.7 L (0.9-2) Lipase 17 (11-82) U/L Procalcitonin (0-0.5) ng/ml Lyme Disease IgG Ab (Negative) Lyme Disease IgM Ab (Negative) SARS-CoV-2 (PCR) (Negative) Influenza Type A (PCR) (Neg) Influenza Type B (PCR) (Neg) RSV (RT-PCR) (Neg) 01/20/22 01/20/22 01/20/22 Range/Units 15:00 15:00 15:00 WBC (4.8-10.8) K/uL RBC (4.2-5.4) M/uL Hgb (12.0-16.0) g/dL Hct (37-47) % MCV (80-100) fL MCH (25-34) pg MCHC (32-36) g/dL RDW Std Deviation (36.4-46.3) fL RDW Coeff of Esau (11.5-14.5) % Plt Count (130-400) K/uL MPV (7.4-10.4) fL Immature Gran % (Auto) % Neut % (Auto) % Lymph % (Auto) % Haskell % (Auto) % Eos % (Auto) % Baso % (Auto) % Neut # (Auto) (1.4-6.5) K/uL Lymph # (Auto) (1.2-3.4) K/uL Haskell # (Auto) (0.11-0.59) K/uL Eos # (Auto) (0-0.5) K/uL Baso # (Auto) (0-0.2) K/uL Immature Gran # (Auto) (0.00-0.02) K/uL Platelet Estimate (Normal) Sodium (136-145) mmol/L Potassium (3.5-5.1) mmol/L Chloride (98-107) mmol/L Carbon Dioxide (21-32) mmol/L Anion Gap (3-11) BUN (6-23) mg/dl Creatinine (0.6-1.2) mg/dl Est Cr Clr Drug Dosing ml/min Est GFR ( Amer) ml/min Est GFR (Non-Af Amer) ml/min BUN/Creatinine Ratio (10-20) Glucose (70-99(Fasting)) mg/dl Lactate 0.5 (0.4-2.0) mmol/L Calcium (8.5-10.1) mg/dl Phosphorus (2.5-4.9) mg/dl Magnesium (1.7-2.4) mg/dl Total Bilirubin (0.2-1.0) mg/dl Direct Bilirubin (0-0.2) mg/dl AST (13-39) U/L ALT (7-52) U/L Alkaline Phosphatase (34-104) U/L Total Creatine Kinase (26-192) U/L Troponin I High Sens (0-14) pg/ml Total Protein (6.0-8.3) gm/dl Albumin (3.4-5.0) gm/dl Globulin (2.5-4.0) gm/dl Albumin/Globulin Ratio (0.9-2) Lipase (11-82) U/L Procalcitonin 0.45 (0-0.5) ng/ml Lyme Disease IgG Ab Positive A (Negative) Lyme Disease IgM Ab Negative (Negative) SARS-CoV-2 (PCR) (Negative) Influenza Type A (PCR) (Neg) Influenza Type B (PCR) (Neg) RSV (RT-PCR) (Neg) 01/20/22 01/20/22 Range/Units 15:00 15:20 WBC (4.8-10.8) K/uL RBC (4.2-5.4) M/uL Hgb (12.0-16.0) g/dL Hct (37-47) % MCV (80-100) fL MCH (25-34) pg MCHC (32-36) g/dL RDW Std Deviation (36.4-46.3) fL RDW Coeff of Esau (11.5-14.5) % Plt Count (130-400) K/uL MPV (7.4-10.4) fL Immature Gran % (Auto) % Neut % (Auto) % Lymph % (Auto) % Haskell % (Auto) % Eos % (Auto) % Baso % (Auto) % Neut # (Auto) (1.4-6.5) K/uL Lymph # (Auto) (1.2-3.4) K/uL Haskell # (Auto) (0.11-0.59) K/uL Eos # (Auto) (0-0.5) K/uL Baso # (Auto) (0-0.2) K/uL Immature Gran # (Auto) (0.00-0.02) K/uL Platelet Estimate (Normal) Sodium (136-145) mmol/L Potassium (3.5-5.1) mmol/L Chloride (98-107) mmol/L Carbon Dioxide (21-32) mmol/L Anion Gap (3-11) BUN (6-23) mg/dl Creatinine (0.6-1.2) mg/dl Est Cr Clr Drug Dosing ml/min Est GFR ( Amer) ml/min Est GFR (Non-Af Amer) ml/min BUN/Creatinine Ratio (10-20) Glucose (70-99(Fasting)) mg/dl Lactate (0.4-2.0) mmol/L Calcium (8.5-10.1) mg/dl Phosphorus (2.5-4.9) mg/dl Magnesium (1.7-2.4) mg/dl Total Bilirubin (0.2-1.0) mg/dl Direct Bilirubin Cancelled (0-0.2) mg/dl AST (13-39) U/L ALT (7-52) U/L Alkaline Phosphatase (34-104) U/L Total Creatine Kinase Cancelled (26-192) U/L Troponin I High Sens (0-14) pg/ml Total Protein (6.0-8.3) gm/dl Albumin (3.4-5.0) gm/dl Globulin (2.5-4.0) gm/dl Albumin/Globulin Ratio (0.9-2) Lipase (11-82) U/L Procalcitonin (0-0.5) ng/ml Lyme Disease IgG Ab (Negative) Lyme Disease IgM Ab (Negative) SARS-CoV-2 (PCR) NEGATIVE (Negative) Influenza Type A (PCR) Negative (Neg) Influenza Type B (PCR) Negative (Neg) RSV (RT-PCR) Negative (Neg) Administered Medications Discontinued Medications Acetaminophen (Ofirmev) 1,000 mg in 100 mls @ 400 mls/hr IV NOW STA Stop: 01/20/22 14:43 Last Admin: 01/20/22 15:40 Dose: Not Given Documented by: [id number] Sodium Chloride (Nss 1000ml) 1,000 mls @ 999 mls/hr IV .Q1H1M ONE Stop: 01/20/22 15:29 Last Infusion: 01/20/22 17:00 Dose: 0 mls/hr Documented by: [id number] Admin: 01/20/22 15:46 Dose: 999 mls/hr Documented by: [id number] Ioversol (Optiray 320 100ml) 94 ml IV ONCE ONE Stop: 01/20/22 17:59 Last Admin: 01/20/22 17:58 Dose: 94 ml Documented by: [id number] Lidocaine (Lidocaine 5% 1 Patch) 1 patch TD NOW STA Stop: 01/20/22 15:07 Last Admin: 01/20/22 15:44 Dose: 1 patch Documented by: [id number] Morphine Sulfate (Morphine Sulfate 2 Mg/Ml Carp) 2 mg IV NOW STA Stop: 01/20/22 15:07 Last Admin: 01/20/22 15:45 Dose: 2 mg Documented by: [id number] Morphine Sulfate (Morphine Sulfate 2 Mg/Ml Carp) 2 mg IV NOW STA Stop: 01/20/22 18:53 Last Admin: 01/20/22 19:03 Dose: 2 mg Documented by: [id number] Imaging Data Radiologist's Impression: Chest X-Ray 01/20/22 14:28 XR chest 1V portable CLINICAL HISTORY: Atypical chest pain TECHNIQUE: Single frontal radiograph of the chest was obtained. Comparison: Comparison is made to chest radiograph 10/14/2021 and thoracic spine 12/29/2021 FINDINGS: Tubing overlies the right chest is unchanged from thoracic spine radiographs 10/14/2021. The aorta is tortuous. The remainder of the cardiomediastinal silhouette is unremarkable. Prominence and cephalization of the vasculature is seen. No evidence of pleural effusion or pneumothorax. IMPRESSION: Mild pulmonary edema. ACT 112: Negative or not required by law. Electronically signed by: Ruddy Hurtado M.D. 01/20/2022 2:44 PM Abdomen/Pelvis CT 01/20/22 15:01 CT abd pelvis IV con only CLINICAL HISTORY: jaundice TECHNIQUE: Helical axial images of the abdomen and pelvis were obtained and displayed. Automated dose lowering techniques and/or adjustment according to patient size were utilized for this exam. This exam was performed with intravenous contrast. COMPARISON: Comparison is made to CT abdomen pelvis 10/26/2021 FINDINGS: Lower chest: For findings above the diaphragm, please see CT chest performed same day. Liver: The liver is relatively hyperdense. Gallbladder and biliary tree: Patient is status post cholecystectomy. No intra- or extrahepatic biliary ductal dilation. Pancreas: Unremarkable, no focal lesions. Spleen: Unremarkable. Adrenals: Unremarkable. Kidneys and ureters: Unremarkable. Bladder: Unremarkable. Reproductive organs: Unremarkable. Bowel: A gastrostomy tube is seen. Distended loops of small bowel are seen in the abdomen, slightly more prominent than in the prior exam. Lymph nodes Retroperitoneal: Unremarkable. Mesenteric: Unremarkable. Pelvic: Unremarkable. Peritoneum: Mild ascites is seen. Vessels: Atherosclerotic calcifications are seen. Abdominal wall: Unremarkable. Bones: There is a total left hip prosthesis. Degenerative changes are seen in the spine. Old healed rib fractures are seen bilaterally. Old compression deformities are seen in the spine. IMPRESSION: Hypodensity of the liver may represent hepatitis or steatosis. Redemonstration of chronically distended small bowel loops, somewhat more enlarged than in the prior exam. Mild ascites is seen. ACT 112: Negative or not required by law. Electronically signed by: Ruddy Hurtado M.D. 01/20/2022 6:[address] 01/20/22 15:01 CT chest diagnostic w con CLINICAL HISTORY: RUE swelling, picc line TECHNIQUE: Multidetector row helical CT of the chest was performed. Coronal and sagittal reformations were obtained. Automated dose lowering techniques and/or adjustment according to patient size were utilized for this exam. CT DOSE: 582.08 mGy.cm Comparison: Comparison is made to CT chest 10/26/2021 FINDINGS: Lungs and pleura: Groundglass and consolidative opacities are seen are seen most prominent in the right upper lobe. Atelectasis is seen. Heart and pericardium: Heart size is normal. No pericardial effusion. Vessels: A right-sided venous catheter terminates in the azygos vein. There is apparent stenosis of the distal SVC. Prominent contrast is noted in right upper extremity veins and numerous collaterals of the abdomen as well as the azygos vein. Mediastinum and luis: Unremarkable. Chest wall and lower neck: Unremarkable. Abdomen: For findings below the diaphragm, please refer to CT of the abdomen dated the same. Bones: Multilevel degenerative changes are seen with cemented arthroplasties noted. No acute abnormalities are seen. IMPRESSION: 1. Groundglass and consolidative opacities most prominent in the right upper lobe are concerning for pneumonia. 2. Apparent stenosis of the distal SVC. There is prominence of venous collaterals to the abdomen as well as the azygos vein. ACT 112: Negative or not required by law. Electronically signed by: Ruddy Hurtado M.D. 01/20/2022 6:42 PM Discharge Plan Visit Data Chief Complaint: Illness Stated Complaint: EDEMA,MULTIPLE SPOTS,CHEST PAIN,BAKERS CYST L KNEE ED Provider: Ranjeet So Discharge Problem: Jaundice, On total parenteral nutrition (TPN), Severe protein-energy malnut rition, Pitting edema, Hepatic steatosis, Gastrointestinal tube present Forms Stand Alone Forms: My [facility] Query Hunter Prescriptions Prescriptions: No Action oxycodone 5 mg/5 mL solution 5 mg PO Q4 PRN (Reason: breakthrough pain, severe) Qty: 473 RF: 0 diclofenac sodium 1 % gel 4 g topical QID Qty: 300 RF: 2 cyclobenzaprine 5 mg tablet 5 mg PO DAILY PRN (Reason: muscle spasm) Qty: 20 RF: 0 buprenorphine HCl 8 mg tablet, sublingual 8 mg SUBLINGUAL TID RF: 0 Referrals Referrals: Kenney Carpenter MD [Primary Care Provider] -
--- NOTE | 2022-01-20 21:01 | History & Physical Report ---
Date of Service January 20, 2022 Assessment & Plan (1) Jaundice: Plan: Patient is a 57 yo female with a complex PMHx including severe protein-energy malnutrition on TPN, hepatic steatosis, pancytopenia, radiation enterocolitis, chronic partial SBO s/p PEG, osteoporosis, lumbar spinal stenosis, chronic pain disorder on chronic buprenorphine, chronic pancreatitis, and anxiety admitted for worsening jaundice and LFTs in the setting of chronic protein calorie malnutrition and TPN use. Abnormal LFTs w/ jaundice and edema - AST elevated at 153; ALT elevated at 98; alk phos elevated at 549 - Suspect secondary to TPN and protein calorie malnutrition - Albumin low at 2.7 - Procal negative - Will consult pharmacy and dietary for management/adjustments to patient's TPN - Recheck CMP qAM Elevated troponin - HS-troponin slightly elevated at 15.9 - Patient w/o CP - EKG NSR 75 bmp, normal axis, no ST or T wave changes - Will get repeat HS-trop Anemia - Chronic but hgb is lower than baseline - Recheck CBC in AM - Transfuse if hgb < 7 Chronic pain - Continue home bupprenorphine and flexeril - Lyme testing in ED positive for IgG; historically patient has been positive for Lyme IgG but has not been positive for Lyme IgM - Will also test for anaplasmosis given chronic joint pain and hx of tick bites Code status: Conditional -- compressions only; DNI FENGI: IVF D5NS at 80 cc/hr (2) Pitting edema: (3) Abnormal LFTs: (4) Chronic pain syndrome: (5) On total parenteral nutrition (TPN): (6) Anxiety: (7) Gastrointestinal tube present: (8) Malnutrition: (9) Pancytopenia: History of Present Illness Primary Care Provider: Kenney Carpenter MD Patient is a 57 yo female with a complex PMHx including severe protein-energy malnutrition on TPN, hepatic steatosis, pancytopenia, radiation enterocolitis, chronic partial SBO s/p PEG, osteoporosis, lumbar spinal stenosis, chronic pain disorder on chronic buprenorphine, chronic pancreatitis, and anxiety who presented to the ER today for evaluation of jaundice and edema. Patient reports worsening jaundice and edema over the past 1-2 weeks. She notes that her TPN was adjusted 2 weeks ago up to 7 part lipid due to low body weight/worsening malnutrition but due to abnormal LFTs and jaundice the TPN was decreased to 6 lipids last week. However, her jaundice and LE edema persisted. She also reports worsening of her chronic pain, including her back pain. She does take buprenorphine which helps with the pain. Patient denies recent fevers (but states that she "doesn't get fevers anymore when sick"), R[place], lightheadedness, vomiting, CP, cough, congestion. Allergies Allergy/AdvReac Type Severity Reaction Status Date / Time ibuprofen Allergy Intermediate RINGING IN Verified 01/20/22 20:15 EARS,PARTIAL LOSS HEARING ketorolac Allergy Intermediate ROARING Verified 01/20/22 20:15 SOUND IN EARS NSAIDS (Non-Steroidal Allergy Intermediate RINGING IN Verified 01/20/22 20:15 Anti-Inflamma EARS zoledronic acid Allergy Intermediate FLU LIKE Verified 01/20/22 20:15 SYMPTOMS SEVERE HEADACHE vancomycin AdvReac Severe ZACHERY Verified 01/20/22 20:15 SYNDROME alprazolam AdvReac Intermediate LOSS OF Verified 01/20/22 20:15 HEARING aspirin AdvReac Intermediate RINGING IN Verified 01/20/22 20:15 EARS,PARTIAL HEARING LOSS promethazine AdvReac Mild RESTLESS Verified 01/20/22 20:15 LEGS Home Medications Medication Instructions Recorded Confirmed Type buprenorphine HCl 8 mg sublingual 8 mg SUBLINGUAL TID 11/01/20 01/20/22 History tablet oxycodone 5 mg/5 mL oral solution 5 mg PO Q4 PRN #473 ml 11/10/21 01/20/22 Rx cyclobenzaprine 5 mg tablet 5 mg PO DAILY PRN #20 tab 01/04/22 01/20/22 Rx diclofenac sodium 1 % topical gel 4 g TOPICAL QID #300 g 01/04/22 01/20/22 Rx Past Med/Surg History Medical History Anxiety Chronic pancreatitis Esophageal reflux Fatty liver Secondary to chronic TPN use Gastrointestinal tube present Gastrostomy tube in place Hearing deficit Hypersplenism Infected venous access port Iron deficiency anemia IRON INFUSIONS IN PAST Left ankle sprain Lumbar spinal stenosis Malnutrition Neutropenia On total parenteral nutrition (TPN) 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 Osteoporosis Overdose Peripheral neuropathy Radiation enterocolitis Severe protein-energy malnutrition Short bowel syndrome Subclinical hypothyroidism Thoracic compression fracture Urinary incontinence Surgical History History of cholecystectomy History of colonoscopy History of esophagogastroduodenoscopy (EGD) History of kyphoplasty (~2018) History of removal of tunneled central venous catheter (CVC) with port (11/01/21) Removal IV Central Catheter(Not Applicable) - Madhav Inocencio Harris, DO 11/01/21 History of spinal surgery THORACIC AND LUMBAR AREA TUMOR REMOVED 1991 + 1992 - RADIATION 5 WEEKS History of surgery PEG TUBE INSERTION (NOTHING RUNS THROUGH PEG TUBE/USED ONLY FOR RELEASING FOOD PRODUCTS D/T SMALL BOWEL OBSTRUCTION) "PT EATS FOR COMFORT" History of total left hip arthroplasty Port-A-Cath in place BRUNER Status post insertion of percutaneous endoscopic gastrostomy (PEG) tube Family History Mother Diabetes Hypertension Father Family hx of colon cancer Bladder cancer Sister Alcohol abuse Deep vein thrombosis Hypertension Brother Hypertension Grandmother Hypertension Aunt Hypertension Other Cancer Social History Smoking Status: Former smoker Tobacco Type: Cigarettes Age Started Using Tobacco: 12; Age Quit Using Tobacco: 21; Second Hand Exposure: No; Do You Dip or Chew Tobacco: No; Tobacco Cessation Education Requested by Patient: No Hx Alcohol Use: No Hx Substance Use: No Preferred Language: Mozambican Communication Ability: Effective Visual Impairment: No Limitations Glue Drier Operator Required: No Beliefs That Will Affect Care: None marital status: Current Living Situation: Spouse current occupational status: disabled Other Information That Helps Us Care for You: No Feels Safe at Home: Yes Safety Concerns: Feels Safe At This Time caffeine: Yes Dental Care, Regularly: Yes Physical Activity Frequency: Does not Exercise Seatbelt Use: always Sunscreen Use: No Assistive Devices: Cane, Walker and Wheelchair Review of Systems Review of Systems: See HPI Physical Exam Physical Exam: GENERAL: No acute distress. Thin appearing. EYES: PERRLA. EOMI. + icteric sclerae. HENT: Moist mucous membranes. No pharyngeal erythema or exudates. No cervical lymphadenopathy. RESPIRATORY: Clear to auscultation bilaterally. No wheezing, rales, or rhonchi. CARDIOVASCULAR: Regular rate and rhythm. No murmurs. ABDOMEN: Soft, non-tender and non-distended, no rebound, no guarding. Normal bowel sounds. PEG tube in place in LLQ. EXTREMITIES: 1+ RUE edema. 2+ RLE edema. 2-3+ LLE edema. No significant tenderness to palpation. SKIN: Warm, dry. Mildly jaundiced. NEUROLOGIC: A/O x3. No focal neurological deficits. 5/5 strength in BUE and BLE. Speech clear. PSYCHIATRIC: Cooperative. Anxious affect. Results & Data Results & Data ([facility]) Vital Signs (Past 12 Hours) Vital Signs Temp Pulse Pulse Resp BP BP Pulse Ox 01/20/22 19:00 70 18 156/86 H 98 01/20/22 17:00 71 17 156/86 H 98 01/20/22 16:38 66 17 143/69 H 99 01/20/22 15:32 70 17 97 01/20/22 14:44 78 18 135/71 99 01/20/22 14:20 36.6 C 83 20 160/81 H 96 Laboratory Results 01/20/22 01/20/22 01/20/22 Range/Units 15:20 15:00 15:00 WBC (4.8-10.8) K/uL RBC (4.2-5.4) M/uL Hgb (12.0-16.0) g/dL Hct (37-47) % MCV (80-100) fL MCH (25-34) pg MCHC (32-36) g/dL RDW Std Deviation (36.4-46.3) fL RDW Coeff of Esau (11.5-14.5) % Plt Count (130-400) K/uL MPV (7.4-10.4) fL Immature Gran % (Auto) % Neut % (Auto) % Lymph % (Auto) % Tillman % (Auto) % Eos % (Auto) % Baso % (Auto) % Neut # (Auto) (1.4-6.5) K/uL Lymph # (Auto) (1.2-3.4) K/uL Tillman # (Auto) (0.11-0.59) K/uL Eos # (Auto) (0-0.5) K/uL Baso # (Auto) (0-0.2) K/uL Immature Gran # (Auto) (0.00-0.02) K/uL Absolute Nucleated RBC (0-0) K/uL Nucleated RBC % (auto) % Platelet Estimate (Normal) Sodium (136-145) mmol/L Potassium (3.5-5.1) mmol/L Chloride (98-107) mmol/L Carbon Dioxide (21-32) mmol/L Anion Gap (3-11) BUN (6-23) mg/dl Creatinine (0.6-1.2) mg/dl Est Cr Clr Drug Dosing ml/min Est GFR ( Amer) ml/min Est GFR (Non-Af Amer) ml/min BUN/Creatinine Ratio (10-20) Glucose (70-99(Fasting)) mg/dl Lactate (0.4-2.0) mmol/L Calcium (8.5-10.1) mg/dl Phosphorus (2.5-4.9) mg/dl Magnesium (1.7-2.4) mg/dl Total Bilirubin (0.2-1.0) mg/dl Direct Bilirubin Cancelled (0-0.2) mg/dl AST (13-39) U/L ALT (7-52) U/L Alkaline Phosphatase (34-104) U/L Total Creatine Kinase Cancelled (26-192) U/L Troponin I High Sens (0-14) pg/ml Total Protein (6.0-8.3) gm/dl Albumin (3.4-5.0) gm/dl Globulin (2.5-4.0) gm/dl Albumin/Globulin Ratio (0.9-2) Lipase (11-82) U/L Procalcitonin (0-0.5) ng/ml Anaplasma Smear Lyme Disease IgG Ab (Negative) Lyme IgG (Western Blot) Pending Lyme IgG 18 kDa Band Pending Lyme IgG 23 kDa Band Pending Lyme IgG 28 kDa Band Pending Lyme IgG 30 kDa Band Pending Lyme IgG 39 kDa Band Pending Lyme IgG 41 kDa Band Pending Lyme IgG 45 kDa Band Pending Lyme IgG 58 kDa Band Pending Lyme IgG 66 kDa Band Pending Lyme IgG 93 kDa Band Pending Lyme IgM Ab (WB) Pending Lyme Disease IgM Ab (Negative) Lyme IgM 23 kDa Band Pending Lyme IgM 39 kDa Band Pending Lyme IgM 41 kDa Band Pending SARS-CoV-2 (PCR) NEGATIVE (Negative) Influenza Type A (PCR) Negative (Neg) Influenza Type B (PCR) Negative (Neg) RSV (RT-PCR) Negative (Neg) 01/20/22 01/20/22 01/20/22 Range/Units 15:00 15:00 15:00 WBC (4.8-10.8) K/uL RBC (4.2-5.4) M/uL Hgb (12.0-16.0) g/dL Hct (37-47) % MCV (80-100) fL MCH (25-34) pg MCHC (32-36) g/dL RDW Std Deviation (36.4-46.3) fL RDW Coeff of Esau (11.5-14.5) % Plt Count (130-400) K/uL MPV (7.4-10.4) fL Immature Gran % (Auto) % Neut % (Auto) % Lymph % (Auto) % Tillman % (Auto) % Eos % (Auto) % Baso % (Auto) % Neut # (Auto) (1.4-6.5) K/uL Lymph # (Auto) (1.2-3.4) K/uL Tillman # (Auto) (0.11-0.59) K/uL Eos # (Auto) (0-0.5) K/uL Baso # (Auto) (0-0.2) K/uL Immature Gran # (Auto) (0.00-0.02) K/uL Absolute Nucleated RBC (0-0) K/uL Nucleated RBC % (auto) % Platelet Estimate (Normal) Sodium (136-145) mmol/L Potassium (3.5-5.1) mmol/L Chloride (98-107) mmol/L Carbon Dioxide (21-32) mmol/L Anion Gap (3-11) BUN (6-23) mg/dl Creatinine (0.6-1.2) mg/dl Est Cr Clr Drug Dosing ml/min Est GFR ( Amer) ml/min Est GFR (Non-Af Amer) ml/min BUN/Creatinine Ratio (10-20) Glucose (70-99(Fasting)) mg/dl Lactate 0.5 (0.4-2.0) mmol/L Calcium (8.5-10.1) mg/dl Phosphorus (2.5-4.9) mg/dl Magnesium (1.7-2.4) mg/dl Total Bilirubin (0.2-1.0) mg/dl Direct Bilirubin (0-0.2) mg/dl AST (13-39) U/L ALT (7-52) U/L Alkaline Phosphatase (34-104) U/L Total Creatine Kinase (26-192) U/L Troponin I High Sens (0-14) pg/ml Total Protein (6.0-8.3) gm/dl Albumin (3.4-5.0) gm/dl Globulin (2.5-4.0) gm/dl Albumin/Globulin Ratio (0.9-2) Lipase (11-82) U/L Procalcitonin 0.45 (0-0.5) ng/ml Anaplasma Smear Lyme Disease IgG Ab Positive A (Negative) Lyme IgG (Western Blot) Lyme IgG 18 kDa Band Lyme IgG 23 kDa Band Lyme IgG 28 kDa Band Lyme IgG 30 kDa Band Lyme IgG 39 kDa Band Lyme IgG 41 kDa Band Lyme IgG 45 kDa Band Lyme IgG 58 kDa Band Lyme IgG 66 kDa Band Lyme IgG 93 kDa Band Lyme IgM Ab (WB) Lyme Disease IgM Ab Negative (Negative) Lyme IgM 23 kDa Band Lyme IgM 39 kDa Band Lyme IgM 41 kDa Band SARS-CoV-2 (PCR) (Negative) Influenza Type A (PCR) (Neg) Influenza Type B (PCR) (Neg) RSV (RT-PCR) (Neg) 01/20/22 01/20/22 01/20/22 Range/Units 15:00 15:00 15:00 WBC 3.72 L (4.8-10.8) K/uL RBC 2.95 L (4.2-5.4) M/uL Hgb 8.2 L (12.0-16.0) g/dL Hct 25.4 L (37-47) % MCV 86.1 (80-100) fL MCH 27.8 (25-34) pg MCHC 32.3 (32-36) g/dL RDW Std Deviation 49.4 H (36.4-46.3) fL RDW Coeff of Esau 15.8 H (11.5-14.5) % Plt Count 116 L (130-400) K/uL MPV 12.1 H (7.4-10.4) fL Immature Gran % (Auto) 0.0 % Neut % (Auto) 83.5 % Lymph % (Auto) 8.1 % Tillman % (Auto) 8.1 % Eos % (Auto) 0.3 % Baso % (Auto) 0.0 % Neut # (Auto) 3.11 (1.4-6.5) K/uL Lymph # (Auto) 0.30 L (1.2-3.4) K/uL Tillman # (Auto) 0.30 (0.11-0.59) K/uL Eos # (Auto) 0.01 (0-0.5) K/uL Baso # (Auto) 0.00 (0-0.2) K/uL Immature Gran # (Auto) 0.00 (0.00-0.02) K/uL Absolute Nucleated RBC 0.00 (0-0) K/uL Nucleated RBC % (auto) 0.0 % Platelet Estimate Decreased L (Normal) Sodium 138 (136-145) mmol/L Potassium 3.6 (3.5-5.1) mmol/L Chloride 102 (98-107) mmol/L Carbon Dioxide 27 (21-32) mmol/L Anion Gap 9 (3-11) BUN 35 H (6-23) mg/dl Creatinine 0.57 L (0.6-1.2) mg/dl Est Cr Clr Drug Dosing 73.5 ml/min Est GFR ( Amer) 118.4 ml/min Est GFR (Non-Af Amer) 102.2 ml/min BUN/Creatinine Ratio 61.4 H (10-20) Glucose 80 (70-99(Fasting)) mg/dl Lactate (0.4-2.0) mmol/L Calcium 8.3 L (8.5-10.1) mg/dl Phosphorus 3.2 (2.5-4.9) mg/dl Magnesium 2.0 (1.7-2.4) mg/dl Total Bilirubin 4.6 H (0.2-1.0) mg/dl Direct Bilirubin 2.6 H (0-0.2) mg/dl AST 153 H (13-39) U/L ALT 98 H (7-52) U/L Alkaline Phosphatase 549 H (34-104) U/L Total Creatine Kinase 160 (26-192) U/L Troponin I High Sens 15.9 H (0-14) pg/ml Total Protein 6.6 (6.0-8.3) gm/dl Albumin 2.7 L (3.4-5.0) gm/dl Globulin 3.9 (2.5-4.0) gm/dl Albumin/Globulin Ratio 0.7 L (0.9-2) Lipase 17 (11-82) U/L Procalcitonin (0-0.5) ng/ml Anaplasma Smear See Comment Lyme Disease IgG Ab (Negative) Lyme IgG (Western Blot) Lyme IgG 18 kDa Band Lyme IgG 23 kDa Band Lyme IgG 28 kDa Band Lyme IgG 30 kDa Band Lyme IgG 39 kDa Band Lyme IgG 41 kDa Band Lyme IgG 45 kDa Band Lyme IgG 58 kDa Band Lyme IgG 66 kDa Band Lyme IgG 93 kDa Band Lyme IgM Ab (WB) Lyme Disease IgM Ab (Negative) Lyme IgM 23 kDa Band Lyme IgM 39 kDa Band Lyme IgM 41 kDa Band SARS-CoV-2 (PCR) (Negative) Influenza Type A (PCR) (Neg) Influenza Type B (PCR) (Neg) RSV (RT-PCR) (Neg) Diagnostic Findings [place], [place] [phone] XRay Report Patient:RUTH CHAHAL Admit Date:01/20/22 MR#:[id number] Address1:[address] Acct ID:[id number] Address2: Date:1965 [facility] Zip:[place] [address] Age:57 Location:ED Sex:F Room/Bed: Att Phy: Diagnosis:EDEMA,MULTIPLE SPOTS,CHEST PAIN,BAKERS CYST L KNEE Jenny Phy:Kenney Carpenter MD Service Date:01/20/22 [facility] Phy: Interpreting Phy:Ruddy uHrtado MDAit Phy: Ordering Phy:Ranjeet So M.D. cc: ~ XR chest 1V portable CLINICAL HISTORY: Atypical chest pain TECHNIQUE: Single frontal radiograph of the chest was obtained. Comparison: Comparison is made to chest radiograph 10/14/2021 and thoracic spine 12/29/2021 FINDINGS: Tubing overlies the right chest is unchanged from thoracic spine radiographs 10/14/2021. The aorta is tortuous. The remainder of the cardiomediastinal silhouette is unremarkable. Prominence and cephalization of the vasculature is seen. No evidence of pleural effusion or pneumothorax. IMPRESSION: Mild pulmonary edema. ACT 112: Negative or not required by law. Electronically signed by: Ruddy Hurtado M.D. 01/20/2022 2:44 PM Dictated:01/20/221440 Transcribed: 01/20/221440 [place], [place] [phone] CT Scan Report Patient:RUTH CHAHAL Admit Date:01/20/22 MR#:[id number] Address1:[address] Acct ID:[id number] Address2: Date:1965 [facility] Zip:[place] [address] Age:57 Location:ED Sex:F Room/Bed: Att Phy: Diagnosis:EDEMA,MULTIPLE SPOTS,CHEST PAIN,BAKERS CYST L KNEE Jenny Phy:Kenney Carpenter MD Service Date:01/20/22 [facility] Phy: Interpreting Phy:[facility]ado [facility]: Ordering Phy:Ranjeet So M.D. cc: ~ CT abd pelvis IV con only CLINICAL HISTORY: jaundice TECHNIQUE: Helical axial images of the abdomen and pelvis were obtained and displayed. Automated dose lowering techniques and/or adjustment according to patient size were utilized for this exam. This exam was performed with intravenous contrast. COMPARISON: Comparison is made to CT abdomen pelvis 10/26/2021 FINDINGS: Lower chest: For findings above the diaphragm, please see CT chest performed same day. Liver: The liver is relatively hyperdense. Gallbladder and biliary tree: Patient is status post cholecystectomy. No intra- or extrahepatic biliary ductal dilation. Pancreas: Unremarkable, no focal lesions. Spleen: Unremarkable. Adrenals: Unremarkable. Kidneys and ureters: Unremarkable. Bladder: Unremarkable. Reproductive organs: Unremarkable. Bowel: A gastrostomy tube is seen. Distended loops of small bowel are seen in the abdomen, slightly more prominent than in the prior exam. Lymph nodes Retroperitoneal: Unremarkable. Mesenteric: Unremarkable. Pelvic: Unremarkable. Peritoneum: Mild ascites is seen. Vessels: Atherosclerotic calcifications are seen. Abdominal wall: Unremarkable. Bones: There is a total left hip prosthesis. Degenerative changes are seen in the spine. Old healed rib fractures are seen bilaterally. Old compression deformities are seen in the spine. IMPRESSION: Hypodensity of the liver may represent hepatitis or steatosis. Redemonstration of chronically distended small bowel loops, somewhat more enlarged than in the prior exam. Mild ascites is seen. ACT 112: Negative or not required by law. Electronically signed by: Ruddy Hurtado M.D. 01/20/2022 6:54 PM Dictated:01/20/221841 Transcribed: 01/20/221841 [facility] [place] [phone] CT Scan Report Patient:RUTH CHAHAL Admit Date:01/20/22 MR#:[id number] Address1:[address] Acct ID:[id number] Address2: Date:1965 [facility] Zip:[place] [address] Age:57 Location:ED Sex:F Room/Bed: Att Phy: Diagnosis:EDEMA,MULTIPLE SPOTS,CHEST PAIN,BAKERS CYST L KNEE Jenny Phy:Kenney Carpenter MD Service Date:01/20/22 [facility] Phy: Interpreting Phy:Ruddy Hurtado [facility]: Ordering Phy:Ranjeet So M.D. cc: ~ CT chest diagnostic w con CLINICAL HISTORY: RUE swelling, picc line TECHNIQUE: Multidetector row helical CT of the chest was performed. Coronal and sagittal reformations were obtained. Automated dose lowering techniques and/or adjustment according to patient size were utilized for this exam. CT DOSE: 582.08 mGy.cm Comparison: Comparison is made to CT chest 10/26/2021 FINDINGS: Lungs and pleura: Groundglass and consolidative opacities are seen are seen most prominent in the right upper lobe. Atelectasis is seen. Heart and pericardium: Heart size is normal. No pericardial effusion. Vessels: A right-sided venous catheter terminates in the azygos vein. There is apparent stenosis of the distal SVC. Prominent contrast is noted in right upper extremity veins and numerous collaterals of the abdomen as well as the azygos vein. Mediastinum and luis: Unremarkable. Chest wall and lower neck: Unremarkable. Abdomen: For findings below the diaphragm, please refer to CT of the abdomen dated the same. Bones: Multilevel degenerative changes are seen with cemented arthroplasties noted. No acute abnormalities are seen. IMPRESSION: 1. Groundglass and consolidative opacities most prominent in the right upper lobe are concerning for pneumonia. 2. Apparent stenosis of the distal SVC. There is prominence of venous collaterals to the abdomen as well as the azygos vein. ACT 112: Negative or not required by law. Electronically signed by: Ruddy Hurtado M.D. 01/20/2022 6:42 PM Dictated:01/20/221818 Transcribed: 01/20/221818 Supervising Physician Co-Signing Physician Notes Attending addendum: I have physically seen this patient, have supervised the medical residents activities, and agree with the H&P unless as otherwise noted. Assessment and Plan: Abnormal LFTs/jaundice/edema/severe protein calorie malnutrition/hepatic steatosis/status post PEG remaining orders and notations appropriate Believed to be secondary to recent lipid changes in her TPN Holding TPN overnight and rechecking laboratories in a.m. Will need new formula prior to restarting Placed on D5 half-normal saline with potassium at 80 mils per hour overnight Elevated troponin- Troponin 15.9 upon admission Likely false positive Repeat per protocol Remaining orders and notations as noted Resident Activity Tracking Resident Involvement: Resident Care Provided Care Provided: Adult Hospital Medicine (1) Malnutrition Malnutrition type: protein-calorie malnutrition Protein-calorie malnutrition severity: severe Qualified Code(s): E43 - Unspecified severe protein-calorie malnutrition
[2022-01-20] MEDS ORDERED: ALUMINUM/MAGNESIUM SUSP 30 ML UDC PO PRN (23:37)
[2022-01-20] MEDS ORDERED: CYCLOBENZAPRINE HCL 5 MG TAB PO PRN (23:37)
[2022-01-20] MEDS ORDERED: MAGNESIUM HYDROXIDE SUSP 30 ML UDC PO PRN (23:37)
[2022-01-21] MEDS ORDERED: LORazepam 2 MG/1 ML VIAL IV ONE (00:18)
[2022-01-21] MEDS ORDERED: TPN/PPN CONSULT PHARMACY PRN (00:39)
[2022-01-21] MEDS: D5W AND NSS 1,000 ML IV SCH ×2 (01:06→13:40)
[2022-01-21 07:09] LABS: Hematocrit (blood only) 23.8 % (37-47); Hemoglobin 7.8 g/dL (12.0-16.0); Mean Corpuscular Hgb Conc 32.8 g/dL (32-36); Mean Corpuscular Volume 85.3 fL (80-100); Mean Platelet Volume 12.4 fL (7.4-10.4); Platelet Count 106 K/uL (130-400); RDW Standard Deviation 49.8 fL (36.4-46.3); Red Blood Count 2.79 M/uL (4.2-5.4); White Blood Count 2.63 K/uL (4.8-10.8)
[2022-01-21 07:25] LABS: Albumin Globulin Ratio 0.7 (0.9-2); Albumin Level 2.2 gm/dl (3.4-5.0); BUN Creatinine Ratio 46.3 (10-20); Bilirubin,Total 3.8 mg/dl (0.2-1.0); Creatinine Clr Calc Pharmacy 71.5 ml/min; Est GFR (African American) 120.6 ml/min; Globulin 3.2 gm/dl (2.5-4.0); Magnesium 1.9 mg/dl (1.7-2.4); Phosphorus 3.1 mg/dl (2.5-4.9); Total Protein 5.4 gm/dl (6.0-8.3)
[2022-01-21 07:52] LABS: Basophilic Stippling 1+; Lymphocytes # (auto) 0.36 K/uL (1.2-3.4); Lymphocytes % (auto) 13.7 %; Monocytes # (auto) 0.18 K/uL (0.11-0.59); Monocytes % (auto) 6.8 %; Neutrophils # (auto) 2.09 K/uL (1.4-6.5); Neutrophils % (auto) 79.5 %
[2022-01-21] MEDS: buprenorphine HCL 8 MG SUBL SL SCH ×3 (10:48→20:56)
[2022-01-21] MEDS: DICLOFENAC SOD 1% GEL 100 GM TUBE EXT SCH ×4 (10:48→21:15)
[2022-01-21] MEDS ORDERED: DEXTROSE 10% 1,000 ML IV PRN (11:33)
[2022-01-21] MEDS: LORazepam 2 MG/1 ML VIAL IV PRN ×2 (11:50→21:01)
[2022-01-21] MEDS: POTASSIUM CHLORIDE / WTR 10 MEQ/100 ML PLCT IV SCH ×2 (12:15→13:21)
[2022-01-21] MEDS: cefTRIAXone SODIUM 1,000 MG in DEXTROSE 5% 50 ML IV SCH (13:00)
[2022-01-21] MEDS: AZITHROMYCIN 500 MG in DEXTROSE 5% 250 ML IV SCH (14:00)
--- NOTE | 2022-01-21 14:27 | Pharmacy Report ---
Pharmacy PN Initial Consult - Date of Service January 21, 2022 - Scope Pharmacy has been consulted to manage parenteral nutrition orders and order appropriate labs. As part of the Nutrition Support Team guidelines, pharmacy will work in conjunction with dietary when determining the patients caloric needs. - Objective Height: 4 ft 10 in Weight: 39.9 kg Intake & Output (Last 24Hrs): Intake & Output 01/19/22 01/20/22 01/21/22 01/22/22 06:59 06:59 06:59 06:59 Intake Total 1270 / 1270 100 / 100 Balance 1270 / 1270 100 / 100 Weight 39.9 kg 39.9 kg Laboratory Data (Last 24 Hrs):: 01/20/22 01/21/22 15:00 06:01 Sodium 138 139 Potassium 3.6 3.0 L Chloride 102 104 Carbon Dioxide 27 28 BUN 35 H 25 H Creatinine 0.57 L 0.54 L Glucose 80 69 L Calcium 8.3 L 8.0 L Phosphorus 3.2 3.1 Magnesium 2.0 1.9 Total Bilirubin 4.6 H 3.8 H AST 153 H 121 H ALT 98 H 79 H Alkaline Phosphatase 549 H 484 H Albumin 2.7 L 2.2 L Nutrition Assessment:: Please refer to the Notes section of the EMR for the most recent sheriff's detective note. - Assessment * SS is a 57 year old female who requires chronic TPN for severe protein/energy malnutrition * Presents with worsening jaundice and edema over past 1-2 weeks * Outpatient TPN formula obtained from [facility] * Of note, patient receives ~2500 mL/day of fluid * 2:1 TPN 3 days per week * 3:1 TPN w/ lipids 4 days per week * ~100 g amino acids/day * ~250 g dextrose day * Patient typically requires large amounts of potassium in TPN + additional potassium fluids * Limiting fluid volume in comparison to outpatient formula given worsening recent edema * TPN to be administered centrally via Jaime line * Will continue cyclic TPN (12 hours overnight [id number]) * will utilize 50% of rate at first/last hour of infusion - Plan For day 1 of PN administration, the following will be ordered: Macronutrients Amino acids 77 grams/day Dextrose 134 grams/day Hold lipids until Monday Micronutrients Sodium chloride 80 mEq Potassium phosphate 24 mMol Potassium chloride 80 mEq Magnesium sulfate 8.12 mEq Multivitamins 10 mL Trace Elements 10 mL Additional additives: famotidine 20 mg Total volume 1055 mL to be infused over 12 hrs will provide 764 kcal/day Labs to be ordered per PN order protocol Pharmacy will follow and adjust parenteral nutrition orders on a daily basis. Thank you.
--- NOTE | 2022-01-21 15:27 | Ultrasound Report ---
LEFT LOWER EXTREMITY VENOUS DOPPLER HISTORY: Acute pain and swelling of the left lower extremity r/o DVT left leg swelling COMPARISON STUDY: Duplex venous Doppler study 12/29/2021 FINDINGS: There is normal compressibility, flow, and augmentation within the left lower extremity airam p venous system. Subcutaneous edema. IMPRESSION: No DVT within the left lower extremity. ACT 112: Negative or not required by law. Electronically signed by: Kota Ramírez M.D. 01/21/2022 3:26 PM
--- NOTE | 2022-01-21 15:30 | Ultrasound Report ---
US venous doppler UE RT HISTORY: 57 years-old Female r/o DVT right arm swelling given swelling of the right upper extremity COMPARISON: Duplex venous Doppler study 11/04/2014 TECHNIQUE: Multiple real-time sonographic images of the right upper extremity deep venous structures were obtained assessing grayscale appearance, color and spectral flow FINDINGS: Chronic appearing nonocclusive thrombus is noted within a vein within the right axilla, likely a supe rficial vein. No acute occlusive deep venous thrombus. IMPRESSION: No DVT identified. ACT 112: Negative or not required by law. The above report was generated using voice recognition software. It may contain grammatical, syntax o r spelling errors. Electronically signed by: Kota Ramírez M.D. 01/21/2022 3:29 PM
--- NOTE | 2022-01-21 19:28 | Electrocardiogram Report ---
Test Reason : Blood Pressure : / mmHG Vent. Rate : 074 BPM Atrial Rate : 074 BPM P-R Int : 150 ms QRS Dur : 114 ms QT Int : 402 ms P-R-T Axes : 052 017 058 degrees QTc Int : 446 ms Sinus rhythm with occasional Premature ventricular complexes Otherwise normal ECG When compared with ECG of 26-DEC-2021 15:59, Premature ventricular complexes are now Present Confirmed by Mark Rene ([id number]) on 01/21/2022 7:27:44 PM Referred By: REFERRED SELF Confirmed By:Mark Rene
[2022-01-21] MEDS ORDERED: CENTRAL TPN IV SCH ×2 (20:00)
[2022-01-21] MEDS ORDERED: [UNRECOGNIZED DRUG - OTHER] IV SCH ×2 (20:00)
[2022-01-21] MEDS ORDERED: AMINO ACID 8% IV SCH ×2 (20:00)
[2022-01-21 23:56] LABS: Appearance Urine Cloudy (Clear); Bacteria Urine Automated 1+ (Negative); Blood Urine Negative (Negative); Color Urine Dark Yellow; Glucose Urine UA Negative (Negative); Ketones Urine Negative (Negative); Leukocyte Esterase Urine 1+ (Negative); Nitrite Urine Negative (Negative); RBC Urine Automated 0-4 /hpf (0-4); Specific Gravity Urine 1.031 (1.000-1.030); Urobilinogen Urine Negative (Negative); pH Urine 7.5 (4.5-7.5)
[2022-01-22 00:10] LABS: Bilirubin Urine 1+ (Negative); Protein Urine Trace (Negative)
--- NOTE | 2022-01-22 06:16 | Hospitalist Progress Note ---
Date of Service January 21, 2022 Assessment & Plan (1) Jaundice: Plan: Suspect related to increased lipids in her TPN as outpatient. LFTs appear to be improving without abdominal pain therefore will defer repeating MRCP as previously this has been without biliary problems. SVC stenosis on CT - discussed with Sophia from vascular and if line is working recommend continuing to use this. Restart TPN today. Stop IV fluids. (2) Abnormal LFTs: Plan: As above (3) Pitting edema: Plan: Suspect secondary to her liver, poor nutrition, central line access, likely worse on left leg than right due to hip operation in October. Does not appears to have pulmonary edema therefore mostly right sided. May need diuretics but for not will improve nutrition with TPN and stop D5W. US venous doppler left leg and right arm to r/o DVT. (4) Pneumonia: Plan: Patient reporting symptoms similar to prior pneumonia with chest tightness and cough. Although very non-specific she is high risk of infections with her poor nutritional status and given CT findings will treat for bacterial pneumonia. Start ceftriaxone and azithromycin. Add vancomycin if MRSA nasal swab positive. (5) Pancytopenia: Plan: Hgb stable 7.8. Will get iron studies in AM to see if would benefit from IV Venofer once blood cultures confirmed to be negative. B12 and folate previously normal. Recent Nicole glabrata grew after 3-4 days in blood cultures in October. Repeated blood cultures on admission Given no definitive blood infection will continue TPN for now due to high risk of worsening nutrition. (6) Chronic pain syndrome: Plan: Patient requesting oxycodone in addition to her usual Suboxone. She also uses Ativan for pain and anxiety during her hospitalization but not at home. Lyme IgM negative and anaplasmosis peripheral smear negative - will await final Western blot and DNA PCR send out for these but low suspicion this is causing her symptoms. (7) On total parenteral nutrition (TPN): Plan: Will continue this through her central line but will have to discontinue if blood culture subsequently positive. Previously it has taken 3-4 days to grow out nicole. (8) Anxiety: Plan: Will add Ativan during hospital stay only. (9) Gastrointestinal tube present: Plan: For chronic pseudo-obstruction. Uses this to decompress bowel. (10) Severe protein-energy malnutrition: Plan: TPN as above (11) Elevated troponin: Plan: Appears to be stable Plan: Code status: Conditional -- compressions only; DNI Disposition - continued admission pending negative blood cultures and improvement in LFTs Admission and Anticipated Discharge Date Admission Date: January 20, 2022 Subjective Patient reports significant swelling in all 4 limbs but especially left leg and right arm since hip operation in October. Lipids have been increasing as o utpatient as she has lost a lot of weight from her hospital stay with pauses in her TPN due to fungemia. Discussed CT chest findings possible concerning for pneumonia and she has noticed an increased cough and chest pressure that she has experienced with previous diagnosis of pneumonia. No fever or chills. Review of Systems Review of Systems: All systems reviewed & are unremarkable except as noted in Subjective Physical Exam Constitutional: well developed; + not well nourished and no acute distress Respiratory: normal respiratory effort, lungs clear to auscultation Cardiovascular: Rate/Rhythm: regular rate and regular rhythm Heart Sounds: no murmur Extremities: normal capillary refill, + calf tenderness (b/l) and + edema (RUE 1+ > LUE, LLE 1+ > RLE 2+) Gastrointestinal (Abdomen): Percussion/Palpation: abdomen soft; abdomen nontender Skin: no rashes, warm and dry Neurologic: moves all extremities and awake; not confused Psychiatric: A+Ox3, euthymic affect Results & Data Results & Data ([facility]) Vital Signs (Past 12 Hours) Vital Signs Temp Pulse Pulse Pulse Resp BP Pulse Ox 01/21/22 18:27 65 01/21/22 18:00 36.3 C L 66 16 148/77 H 97 01/21/22 11:48 36.3 C L 70 16 130/70 98 01/21/22 07:18 71 PG Care Time/CCT Total # of Minutes Spent Total Time Spent with Patient: Total time spent is greater than 50% in coordination of care (as documented) at patient's floor/unit and/or counseling patient: Coding Level of Care Code 48809 Subseq Hosp Care Lvl 3 Diagnoses Jaundice R17 Pitting edema R60.9 Abnormal LFTs R79.89 Chronic pain syndrome G89.4 On total parenteral nutrition (TPN) Z78.9 Anxiety F41.9 Gastrointestinal tube present Z93.1 Pancytopenia D61.818 Pneumonia J18.9 Severe protein-energy malnutrition E43 Elevated troponin R77.8
[2022-01-22 06:43] LABS: Eosinophils # (auto) 0.01 K/uL (0-0.5); Eosinophils % (auto) 0.4 %; Lymphocytes # (auto) 0.26 K/uL (1.2-3.4); Lymphocytes % (auto) 10.8 %; Mean Corpuscular Volume 87.4 fL (80-100); Mean Platelet Volume 11.7 fL (7.4-10.4); Monocytes # (auto) 0.24 K/uL (0.11-0.59); Neutrophils # (auto) 1.89 K/uL (1.4-6.5); Neutrophils % (auto) 78.8 %; Platelet Count 113 K/uL (130-400); RDW Coefficient of Variation 16.4 % (11.5-14.5); RDW Standard Deviation 52.5 fL (36.4-46.3); Red Blood Count 2.86 M/uL (4.2-5.4)
[2022-01-22 07:37] LABS: Albumin Globulin Ratio 0.7 (0.9-2); Albumin Level 2.2 gm/dl (3.4-5.0); Bilirubin,Total 3.1 mg/dl (0.2-1.0); Calcium 7.7 mg/dl (8.5-10.1); Creatinine Clr Calc Pharmacy 73.3 ml/min; Est GFR (African American) 120.6 ml/min; Ferritin 33.2 ng/ml (8-388); Globulin 3.2 gm/dl (2.5-4.0); Magnesium 1.9 mg/dl (1.7-2.4); Phosphorus 3.1 mg/dl (2.5-4.9); Potassium 4.2 mmol/L (3.5-5.1); Total Protein 5.4 gm/dl (6.0-8.3)
[2022-01-22 07:45] LABS: Iron 51 mcg/dl (35-150); Total Iron Binding Cap Calc 323 mcg/dl (250-450); Transferrin (FE) Percent Satur 16 % (15-50); Unsaturated Iron Binding Cap 272 mcg/dl (155-355)
[2022-01-22 07:46] LABS: ALC (manual) 0.23 K/uL (1.2-3.4); ANC (manual) 2.02 K/uL (1.4-6.5); Basophils # (manual) 0.02 K/uL (0-0.2); Basophils % (manual) 0.9 %; Giant Platelets 1+; Lymphocytes # (manual) 0.23 K/uL (1.2-3.4); Lymphocytes % (manual) 9.6 %; Monocytes # (manual) 0.12 K/uL (0.11-0.59); Monocytes % (manual) 5.2 %; Neutrophils # (manual) 2.02 K/uL (1.4-6.5); Neutrophils % (manual) 84.3 %
[2022-01-22] MEDS: LORazepam 2 MG/1 ML VIAL IV PRN (07:51)
[2022-01-22] MEDS: DICLOFENAC SOD 1% GEL 100 GM TUBE EXT SCH ×4 (07:52→20:16)
[2022-01-22] MEDS: STOP ORDER: TPN SCH (07:55)
[2022-01-22] MEDS: buprenorphine HCL 8 MG SUBL SL SCH ×3 (07:55→20:23)
[2022-01-22 08:02] LABS: INR 1.3 (0.9-1.1); Prothrombin Time 13.7 Seconds (9.0-12.0)
--- NOTE | 2022-01-22 11:49 | Hospitalist Progress Note ---
Date of Service January 22, 2022 Assessment & Plan (1) Jaundice: Plan: Suspect related to increased lipids in her TPN as outpatient. This occurred once before, and her LFTs returned to normal in late October/early November before rising again. - Defer repeating MRCP as previously this has been without biliary problems. - SVC stenosis on CT - discussed with Sophia from vascular and if line is working recommend continuing to use this. - Continue TPN. (2) Abnormal LFTs: Plan: As above (3) Pitting edema: Plan: Suspect secondary to her liver, poor nutrition, central line access, likely worse on left leg than right due to hip operation in October. - US venous Doppler of left leg was negative on 01/21. - Right arm Doppler on 01/21 showed no DVT, but does have superficial thrombosis. -> Use warm compresses. (4) Pneumonia: Plan: Patient reporting symptoms similar to prior pneumonia with chest tightness and cough. Although very non-specific, she is high risk of infections with her poor nutritional status and given CT findings will treat for bacterial pneumonia. MRSA nares swab negative on 01/22. - Continue ceftriaxone and azithromycin (End date: 01/25 for 5-day course) (5) Pancytopenia: Plan: Hgb stable 7.8. Iron studies on 01/22 generally normal. B12 and folate previously normal. Recent Nicole glabrata grew after 3-4 days in blood cultures in October. - Repeated blood cultures on 01/20 with no growth to day. (6) Chronic pain syndrome: Plan: Patient requesting oxycodone in addition to her usual Suboxone. She also uses Ativan for pain and anxiety during her hospitalization but not at home. - Minimize opioids and lorazepam. Patient seems lethargic to me today. (7) On total parenteral nutrition (TPN): Plan: Will continue this through her central line but will have to discontinue if blood culture subsequently positive. - Previously it has taken 3-4 days to grow out Nicole. (8) Anxiety: Plan: Will add Ativan during hospital stay only. - Minimize dosing as much as able. (9) Gastrointestinal tube present: Plan: For chronic pseudo-obstruction. Uses this to decompress bowel. (10) Severe protein-energy malnutrition: Plan: TPN as above Plan: Code status: Conditional -- compressions only; DNI Admission and Anticipated Discharge Date Admission Date: January 20, 2022 Subjective Tired today. She wakes up easily, but then kind of drifts off until you speak with her again. Reports no fevers/chills, chest pain, shortness of breath, abdominal pain, nausea, or vomiting. Physical Exam Constitutional: + acute distress and + thin Eyes: EOM intact bilaterally; no conjunctival abnormality ENMT: external ear and nose normal, oropharynx normal Neck: trachea midline, no thyromegaly normal visual inspection Respiratory: normal respiratory effort, lungs clear to auscultation no respiratory distress Cardiovascular: RRR, no murmur, no edema Gastrointestinal (Abdomen): Inspection/Auscultation: + hypoactive bowel sounds; + abdomen abnormal to inspection (G tube in place) and abdomen not distended Percussion/Palpation: abdomen soft; abdomen nontender, no guarding and abdomen not rigid Musculoskeletal: no cyanosis or clubbing, extremities motor strength 5/5 Skin: no rashes, warm and dry Neurologic: moves all extremities and awake Psychiatric: Orientation: alert, oriented to person and cooperative Results & Data Results & Data ([facility]) Vital Signs (Past 12 Hours) Vital Signs Temp Pulse Pulse Pulse Resp BP Pulse Ox 01/22/22 07:39 36.7 C 73 18 136/69 95 01/22/22 06:22 69 01/22/22 03:01 36.4 C L 71 20 127/73 98 PG Care Time/CCT Total # of Minutes Spent Total Time Spent with Patient: Total time spent is greater than 50% in coordination of care (as documented) at patient's floor/unit and/or counseling patient: Coding Level of Care Code 15902 Subseq Hosp Care Lvl 3 Diagnoses Jaundice R17 Abnormal LFTs R79.89 Pitting edema R60.9 Pneumonia J18.9 Pancytopenia D61.818 Chronic pain syndrome G89.4 On total parenteral nutrition (TPN) Z78.9 Anxiety F41.9 Gastrointestinal tube present Z93.1 Severe protein-energy malnutrition E43
[2022-01-22] MEDS: cefTRIAXone SODIUM 1,000 MG in DEXTROSE 5% 50 ML IV SCH (12:19)
[2022-01-22] MEDS: AZITHROMYCIN 500 MG in DEXTROSE 5% 250 ML IV SCH (12:20)
[2022-01-22] MEDS: LORazepam 0.5 MG TAB SL PRN ×2 (14:01→22:35)
[2022-01-22] MEDS ORDERED: [UNRECOGNIZED DRUG - OTHER] IV SCH (20:00)
[2022-01-22] MEDS ORDERED: CENTRAL TPN IV SCH (20:00)
[2022-01-22] MEDS ORDERED: AMINO ACID 8% IV SCH (20:00)
[2022-01-23 06:41] LABS: Albumin Globulin Ratio 0.7 (0.9-2); Albumin Level 2.4 gm/dl (3.4-5.0); BUN Creatinine Ratio 61.5 (10-20); Bilirubin,Total 3.3 mg/dl (0.2-1.0); Calcium 7.7 mg/dl (8.5-10.1); Creatinine Clr Calc Pharmacy 73.5 ml/min; Est GFR (African American) 122.1 ml/min; Est GFR (Non-African American) 105.3 ml/min; Globulin 3.6 gm/dl (2.5-4.0); Magnesium 1.9 mg/dl (1.7-2.4); Phosphorus 3.1 mg/dl (2.5-4.9); Potassium 4.2 mmol/L (3.5-5.1)
[2022-01-23 07:04] LABS: Hemoglobin 8.6 g/dL (12.0-16.0); Mean Corpuscular Hgb Conc 31.9 g/dL (32-36); Mean Corpuscular Volume 87.9 fL (80-100); Mean Platelet Volume 12.6 fL (7.4-10.4); Platelet Count 122 K/uL (130-400); RDW Coefficient of Variation 16.3 % (11.5-14.5); Red Blood Count 3.07 M/uL (4.2-5.4); White Blood Count 3.28 K/uL (4.8-10.8)
[2022-01-23 07:05] LABS: Platelet Estimate Decreased (Normal)
[2022-01-23] MEDS: STOP ORDER: TPN SCH (08:13)
[2022-01-23] MEDS: LORazepam 0.5 MG TAB SL PRN ×2 (08:13→15:11)
[2022-01-23] MEDS: buprenorphine HCL 8 MG SUBL SL SCH ×3 (08:13→20:42)
[2022-01-23] MEDS: DICLOFENAC SOD 1% GEL 100 GM TUBE EXT SCH ×4 (09:05→20:43)
[2022-01-23] MEDS: cefTRIAXone SODIUM 1,000 MG in DEXTROSE 5% 50 ML IV SCH (12:02)
[2022-01-23] MEDS: AZITHROMYCIN 500 MG in DEXTROSE 5% 250 ML IV SCH (12:03)
--- NOTE | 2022-01-23 12:16 | Hospitalist Progress Note ---
Date of Service January 23, 2022 Assessment & Plan (1) Jaundice: Plan: Suspect related to increased lipids in her TPN as outpatient. This occurred once before, and her LFTs returned to normal in late October/early November before rising again. - Defer repeating MRCP as previously this has been without biliary problems. - SVC stenosis on CT - discussed with Sophia from vascular and if line is working recommend continuing to use this. - Continue TPN - Discussed with pharmacy today. We are not giving lipids so far. Will skip again today to see if LFTs improve. Will discuss again tomorrow before adding lipids. Could consider lowering dose (perhaps 35 mg 3x/wk) to see if this improves her LFTs. (2) Abnormal LFTs: Plan: As above (3) Pitting edema: Plan: Suspect secondary to her liver, poor nutrition, central line access, likely worse on left leg than right due to hip operation in October. - US venous Doppler of left leg was negative on 01/21. - Right arm Doppler on 01/21 showed no DVT, but does have superficial thrombosis in the right axilla. -> Use warm compresses & Lovenox 40 mg SQ daily per [employer] ate. (4) Pneumonia: Plan: Patient reporting symptoms similar to prior pneumonia with chest tightness and cough. Although very non-specific, she is high risk of infections with her poor nutritional status and given CT findings will treat for bacterial pneumonia. MRSA nares swab negative on 01/22. - Continue ceftriaxone and azithromycin (End date: 01/25 for 5-day course) (5) Pancytopenia: Plan: Hgb stable 7.8. Iron studies on 01/22 generally normal. B12 and folate previously normal. Recent Nicole glabrata grew after 3-4 days in blood cultures in October. - Repeated blood cultures on 01/20 with no growth to day. (6) Chronic pain syndrome: Plan: Patient requesting oxycodone in addition to her usual Suboxone. She also uses Ativan for pain and anxiety during her hospitalization but not at home. - Minimize opioids and lorazepam. Patient seems lethargic to me today again. Will recheck to see if Ativan wearing off helps. (7) On total parenteral nutrition (TPN): Plan: Will continue this through her central line but will have to discontinue if blood culture subsequently positive. - Previously it has taken 3-4 days to grow out Nicole. (8) Anxiety: Plan: Will add Ativan during hospital stay only. - Minimize dosing as much as able. (9) Gastrointestinal tube present: Plan: For chronic pseudo-obstruction. Uses this to decompress bowel. (10) Severe protein-energy malnutrition: Plan: TPN as above Plan: Code status: Conditional -- compressions only; DNI Admission and Anticipated Discharge Date Admission Date: January 20, 2022 Subjective Tired today. She wakes up easily, but then kind of drifts off until you speak with her again. She does report some abdominal pain today. She reports it as chronic in nature and no change from over the last week/months. Reports no fevers/chills, chest pain, shortness of breath, nausea, or vomiting. Physical Exam Constitutional: + thin; no acute distress Eyes: EOM intact bilaterally; no conjunctival abnormality ENMT: external ear and nose normal, oropharynx normal Neck: trachea midline, no thyromegaly normal visual inspection Respiratory: normal respiratory effort, lungs clear to auscultation no respiratory distress Cardiovascular: RRR, no murmur, no edema Gastrointestinal (Abdomen): Inspection/Auscultation: + hypoactive bowel sounds; + abdomen abnormal to inspection (G tube in place) and abdomen not distended Percussion/Palpation: abdomen soft; abdomen nontender, no guarding and abdomen not rigid Musculoskeletal: no cyanosis or clubbing, extremities motor strength 5/5 Skin: no rashes, warm and dry Neurologic: moves all extremities and awake Psychiatric: Orientation: alert, oriented to person and cooperative Results & Data Results & Data ([facility]) Vital Signs (Past 12 Hours) Vital Signs Temp Pulse Pulse Resp BP BP Pulse Ox 01/23/22 11:15 36.8 C 68 12 157/78 H 95 01/23/22 07:15 36.7 C 70 70 14 144/76 H 97 01/23/22 03:25 36.6 C 81 20 151/79 H 95 PG Care Time/CCT Total # of Minutes Spent Total Time Spent with Patient: Total time spent is greater than 50% in coordination of care (as documented) at patient's floor/unit and/or counseling patient: Coding Level of Care Code 81613 Subseq Hosp Care Lvl 2 Diagnoses Jaundice R17 Abnormal LFTs R79.89 Pitting edema R60.9 Pneumonia J18.9 Pancytopenia D61.818 Chronic pain syndrome G89.4 On total parenteral nutrition (TPN) Z78.9 Anxiety F41.9 Gastrointestinal tube present Z93.1 Severe protein-energy malnutrition E43
[2022-01-23] MEDS: ENOXAPARIN INJ 30 MG/0.3 ML SYR SQ SCH (15:17)
[2022-01-23] MEDS ORDERED: LORazepam 0.5 MG TAB SL PRN (17:38)
[2022-01-23] MEDS ORDERED: CENTRAL TPN IV SCH (20:00)
[2022-01-23] MEDS ORDERED: AMINO ACID 8% IV SCH (20:00)
[2022-01-23] MEDS ORDERED: [UNRECOGNIZED DRUG - OTHER] IV SCH (20:00)
[2022-01-24 07:18] LABS: Hematocrit (blood only) 25.2 % (37-47); Hemoglobin 8.1 g/dL (12.0-16.0); Mean Corpuscular Hgb Conc 32.1 g/dL (32-36); Mean Corpuscular Volume 87.2 fL (80-100); Mean Platelet Volume 12.4 fL (7.4-10.4); Platelet Count 101 K/uL (130-400); RDW Coefficient of Variation 16.1 % (11.5-14.5); RDW Standard Deviation 51.7 fL (36.4-46.3); Red Blood Count 2.89 M/uL (4.2-5.4); White Blood Count 3.09 K/uL (4.8-10.8)
[2022-01-24 07:30] LABS: Albumin Globulin Ratio 0.7 (0.9-2); Albumin Level 2.2 gm/dl (3.4-5.0); BUN Creatinine Ratio 71.1 (10-20); Calcium 7.5 mg/dl (8.5-10.1); Creatinine Clr Calc Pharmacy 86.7 ml/min; Est GFR (Non-African American) 110.4 ml/min; Globulin 3.2 gm/dl (2.5-4.0); Magnesium 1.9 mg/dl (1.7-2.4); Potassium 4.1 mmol/L (3.5-5.1); Total Protein 5.4 gm/dl (6.0-8.3)
[2022-01-24] MEDS: oxyCODONE HCL IR 5 MG TAB (IMMEDIATE RELEASE) PO PRN ×2 (08:08→14:08)
[2022-01-24] MEDS: STOP ORDER: TPN SCH (08:09)
[2022-01-24] MEDS: DICLOFENAC SOD 1% GEL 100 GM TUBE EXT SCH ×2 (08:09→14:03)
[2022-01-24] MEDS: ENOXAPARIN INJ 30 MG/0.3 ML SYR SQ SCH (08:09)
[2022-01-24] MEDS: buprenorphine HCL 8 MG SUBL SL SCH ×2 (08:11→14:03)
[2022-01-24] MEDS: cefTRIAXone SODIUM 1,000 MG in DEXTROSE 5% 50 ML IV SCH (12:33)
[2022-01-24] MEDS: AZITHROMYCIN 500 MG in DEXTROSE 5% 250 ML IV SCH (12:33)
--- NOTE | 2022-01-24 12:48 | Orthopedic Consultation ---
Date of Service January 24, 2022 Assessment & Plan (1) Effusion, left knee: Fortunately the effusion is gone down and her pain is subsided. She says she still has a little bit of soreness when she is ambulating but is not too bad. I reassured her that the Patel's cyst in the back of her knee is very small and it is not causing any of the swelling of her left leg. She does have a trace effusion of her left knee, a little bit more than the contralateral side. It is not enough fluid to do an aspiration. At this point I think we will treat this with observation. She can be weightbearing as tolerated. If she has a recurrent effusion of her left knee then we will be happy to aspirate in the future and possibly give her cortisone injections. If you have any further questions, please feel free to contact me personally on my cell phone at [phone]. History of Present Illness Reason for Consultation: Left knee pain and effusion. Requesting Physician: . Attending Physician: Everton Ta MD Caroline is a pleasant 57-year-old female who underwent a hip hemiarthroplasty by Dr. Davide Lowery 3 months ago. She is chronically malnourished. She is on TPN nutrition. She was admitted to the hospital few days ago for worsening jaundice. She states that she has had pain and swelling of her left leg for several months since the hip replacement surgery. She had x-rays of her left knee 3 weeks ago which were negative. She is also had several ultrasounds of her left leg. She has no evidence of DVT. An ultrasound from 3 weeks ago did show a small Patel's cyst. Fortunately the swelling of her leg and the knee effusion is gone down over the last day or two. She is able to walk on it again. Orthopedics was consulted to evaluate and treat. Allergies Allergy/AdvReac Type Severity Reaction Status Date / Time ibuprofen Allergy Intermediate RINGING IN Verified 01/20/22 20:15 EARS,PARTIAL LOSS HEARING ketorolac Allergy Intermediate ROARING Verified 01/20/22 20:15 SOUND IN EARS NSAIDS (Non-Steroidal Allergy Intermediate RINGING IN Verified 01/20/22 20:15 Anti-Inflamma EARS zoledronic acid Allergy Intermediate FLU LIKE Verified 01/20/22 20:15 SYMPTOMS SEVERE HEADACHE vancomycin AdvReac Severe ZACHERY Verified 01/20/22 20:15 SYNDROME alprazolam AdvReac Intermediate LOSS OF Verified 01/20/22 20:15 HEARING aspirin AdvReac Intermediate RINGING IN Verified 01/20/22 20:15 EARS,PARTIAL HEARING LOSS promethazine AdvReac Mild RESTLESS Verified 01/20/22 20:15 LEGS Home Medications Medication Instructions Recorded Confirmed Type buprenorphine HCl 8 mg sublingual 8 mg SUBLINGUAL TID 11/01/20 01/20/22 History tablet oxycodone 5 mg/5 mL oral solution 5 mg PO Q4 PRN #473 ml 11/10/21 01/20/22 Rx cyclobenzaprine 5 mg tablet 5 mg PO DAILY PRN #20 tab 01/04/22 01/20/22 Rx diclofenac sodium 1 % topical gel 4 g TOPICAL QID #300 g 01/04/22 01/20/22 Rx Past Med/Surg History Medical History Anxiety Chronic pancreatitis Esophageal reflux Fatty liver Secondary to chronic TPN use Gastrointestinal tube present Gastrostomy tube in place Hearing deficit Hypersplenism Infected venous access port Iron deficiency anemia IRON INFUSIONS IN PAST Left ankle sprain Lumbar spinal stenosis Malnutrition Neutropenia On total parenteral nutrition (TPN) 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 Osteoporosis Overdose Peripheral neuropathy Radiation enterocolitis Severe protein-energy malnutrition Short bowel syndrome Subclinical hypothyroidism Thoracic compression fracture Urinary incontinence Surgical History History of cholecystectomy History of colonoscopy History of esophagogastroduodenoscopy (EGD) History of kyphoplasty (~2017) History of removal of tunneled central venous catheter (CVC) with port (11/01/21) Removal IV Central Catheter(Not Applicable) - Madhav Harris DO 11/01/21 History of spinal surgery THORACIC AND LUMBAR AREA TUMOR REMOVED 1991 + 1992 - RADIATION 5 WEEKS History of surgery PEG TUBE INSERTION (NOTHING RUNS THROUGH PEG TUBE/USED ONLY FOR RELEASING FOOD PRODUCTS D/T SMALL BOWEL OBSTRUCTION) "PT EATS FOR COMFORT" History of total left hip arthroplasty Port-A-Cath in place BRUNER Status post insertion of percutaneous endoscopic gastrostomy (PEG) tube Family History Mother Diabetes Hypertension Father Family hx of colon cancer Bladder cancer Sister Alcohol abuse Deep vein thrombosis Hypertension Brother Hypertension Grandmother Hypertension Aunt Hypertension Other Cancer Social History Smoking Status: Former smoker Tobacco Type: Cigarettes Age Started Using Tobacco: 12; Age Quit Using Tobacco: 21; Second Hand Exposure: No; Hx Alcohol Use: No Hx Substance Use: No Preferred Language: Lebanese Communication Ability: Effective Visual Impairment: No Limitations Field Super[employer] Required: No Beliefs That Will Affect Care: None marital status: Current Living Situation: Spouse current occupational status: disabled Feels Safe at Home: Yes caffeine: Yes Dental Care, Regularly: Yes Physical Activity Frequency: Does not Exercise Seatbelt Use: always Sunscreen Use: No Assistive Devices: Cane, Walker and Wheelchair Review of Systems All systems reviewed & are unremarkable except as noted in HPI & below. Physical Exam On physical examination of her left knee, there is a trace effusion. She is a very thin leg. She is range of motion of 0 to 130 degrees. She has no gross instability. She has minimal pain with range of motion. I will see any signs of cellulitis or edema down the lower extremity. She does not have any pain in her calf. She does not have a palpable Patel's cyst. Eyes PERRL, conjunctivae normal, anicteric sclerae ENMT external ear and nose normal, oropharynx normal Neck trachea midline, no thyromegaly Respiratory normal respiratory effort Cardiovascular RRR, no murmur, no edema Gastrointestinal (Abdomen) normal bowel sounds, soft, nontender, no hepatosplenomegaly Psychiatric A+Ox3, euthymic affect Results & Data Results & Data Laboratory Results . Diagnostic Findings X-rays of the left knee from 12-29-2021 show no signs of significant arthritis. There is no fractures. The x-rays are essentially negative. Ultrasound of the left leg ordered 12-29-2021 showed no signs of DVT but did show a 2 cm x 3 cm Patel's cyst. PG Care Time/CCT Total # of Minutes Spent Total Time Spent with Patient: Total time spent is greater than 50% in coordination of care (as documented) at patient's floor/unit and/or counseling patient: Coding Level of Care Code 20196 Inpt Consult Level 4 Diagnoses Effusion, left knee M25.462
[2022-01-24 15:03] VITALS: BP 147/76; PULSE 73; TEMP 97.9; O2SAT 99
--- NOTE | 2022-01-24 16:12 | Discharge Summary ---
Date of Service January 24, 2022 Admission HPI Per Admitting Provider Patient is a 57 yo female with a complex PMHx including severe protein-energy malnutrition on TPN, hepatic steatosis, pancytopenia, radiation enterocolitis, chronic partial SBO s/p PEG, osteoporosis, lumbar spinal stenosis, chronic pain disorder on chronic buprenorphine, chronic pancreatitis, and anxiety who presented to the ER today for evaluation of jaundice and edema. Patient reports worsening jaundice and edema over the past 1-2 weeks. She notes that her TPN was adjusted 2 weeks ago up to 7 part lipid due to low body weight/worsening malnutrition but due to abnormal LFTs and jaundice the TPN was decreased to 6 lipids last week. However, her jaundice and LE edema persisted. She also reports worsening of her chronic pain, including her back pain. She does take buprenorphine which helps with the pain. Patient denies recent fevers (but states that she "doesn't get fevers anymore when sick"), [place], lightheadedness, vomiting, CP, cough, congestion. Principal Diagnosis Elevated LFTs from high lipid content of TPN Left knee pain - Likely osteoarthritis vs. Patel's cyst Discharge Exam Constitutional + thin; no acute distress Eyes EOM intact bilaterally; no conjunctival abnormality ENMT external ear and nose normal, oropharynx normal Neck trachea midline, no thyromegaly normal visual inspection Respiratory normal respiratory effort, lungs clear to auscultation no respiratory distress Cardiovascular RRR, no murmur, no edema Gastrointestinal (Abdomen) Inspection/Auscultation: + hypoactive bowel sounds; + abdomen abnormal to inspection (G tube in place) and abdomen not distended Percussion/Palpation: abdomen soft; abdomen nontender, no guarding and abdomen not rigid Musculoskeletal no cyanosis or clubbing, extremities motor strength 5/5 Knee: no effusion Left knee Patel's cyst Skin no rashes, warm and dry Neurologic moves all extremities and awake Psychiatric Orientation: alert, oriented to person and cooperative Discharge Data Allergies Allergy/AdvReac Type Severity Reaction Status Date / Time ibuprofen Allergy Intermediate RINGING IN Verified 01/20/22 20:15 EARS,PARTIAL LOSS HEARING ketorolac Allergy Intermediate ROARING Verified 01/20/22 20:15 SOUND IN EARS NSAIDS (Non-Steroidal Allergy Intermediate RINGING IN Verified 01/20/22 20:15 Anti-Inflamma EARS zoledronic acid Allergy Intermediate FLU LIKE Verified 01/20/22 20:15 SYMPTOMS SEVERE HEADACHE vancomycin AdvReac Severe ZACHERY Verified 01/20/22 20:15 SYNDROME alprazolam AdvReac Intermediate LOSS OF Verified 01/20/22 20:15 HEARING aspirin AdvReac Intermediate RINGING IN Verified 01/20/22 20:15 EARS,PARTIAL HEARING LOSS promethazine AdvReac Mild RESTLESS Verified 01/20/22 20:15 LEGS Consultations 01/20/22 19:21 ED Decision to Admit Stat 01/24/22 12:01 Consult Orthopedic Surgery Routine Ordered Studies 01/20/22 15:01 CT abd pelvis IV con only Stat CT chest diagnostic w con Stat 01/21/22 11:20 US venous doppler LE LT Urgent 01/21/22 11:22 US venous doppler UE RT Urgent Hospital Course (1) Jaundice: Suspect related to increased lipids in her TPN as outpatient. This occurred once before, and her LFTs returned to normal in late October/early November before rising again. - Defer repeating MRCP as previously this has been without biliary problems. - SVC stenosis on CT - discussed with Sophia from vascular and if line is working recommend continuing to use this. - Continue TPN - Held lipids while inpatient with some improvement in LFTs. Discussed with her home TPN provider ([facility]) who will reduce her lipids back down. Can f/u with GI in 2-3 weeks. (2) Abnormal LFTs: As above (3) Pitting edema: Suspect secondary to her liver, poor nutrition, central line access, likely worse on left leg than right due to hip operation in October. - US venous Doppler of left leg was negative on 01/21. - Right arm Doppler on 01/21 showed no DVT, but does have superficial thrombosis in the right axilla. -> Use warm compresses & Lovenox 40 mg SQ daily per [employer]. -> Swelling had resolved by discharge. Will defer further anticoagulation. R ecommended conservative care. Orthopedics saw her on 01/24 as she also reported to me that left knee swelling was also what brought her in the hospital. Small Patel's cyst. No further effusion. Can f/u outpatient per their note. (4) Pneumonia: Patient reporting symptoms similar to prior pneumonia with chest tightness and cough. Although very non-specific, she is high risk of infections with her poor nutritional status and given CT findings will treat for bacterial pneumonia. MRSA nares swab negative on 01/22. - Continued ceftriaxone and azithromycin - Discharge with 1 final day of levofloxacin. (5) Pancytopenia: Hgb stable 7.8. Iron studies on 01/22 generally normal. B12 and folate previously normal. Recent Nicole glabrata grew after 3-4 days in blood cultures in October. - Repeated blood cultures on 01/20 with no growth to day. (6) Chronic pain syndrome: Patient requesting oxycodone in addition to her usual Suboxone. She also uses Ativan for pain and anxiety during her hospitalization but not at home. - Minimize opioids and lorazepam. Patient really only tolerated Ativan 0.25 mg PO BID without too much lethargy. (7) On total parenteral nutrition (TPN): Will continue this through her central line but will have to discontinue if blood culture subsequently positive. - Previously it has taken 3-4 days to grow out Nicole. - PT/OT recommend SNF, but the patient adamantly refuses ("It is out of the ques tion."). Discharged home with home services and family support. (8) Anxiety: Will add Ativan during hospital stay only. - Minimize dosing as much as able. Only tolerated Ativan 0.25 mg PO BID without too much sedation. (9) Gastrointestinal tube present: For chronic pseudo-obstruction. Uses this to decompress bowel. (10) Severe protein-energy malnutrition: TPN as above Code status: Conditional -- compressions only; DNI Total Time Total Time Spent Total Time Spent (In Minutes): 60 Discharge Plan Discharge Items Patient Disposition: Home - Home Health Services Reason For Visit: TRANSAMINITIS Discharge Diagnosis: Elevated liver enzymes from high lipid levels in the TPN Left knee pain possible from a Patel's cyst or arthritis Activity: Resume your previous activity Non-emergency contact: Primary Care Provider and Surgeon Call non-emergency contact if: your symptoms worsen Follow-up/Referrals: Kenney Carpenter MD [Primary Care Provider] - 01/31/22 11:00 am (Appointment with Lucy Ng PA-C) Anuel Baxter DO [Physician] - (Please see Dr. Baxter in follow-up if your left knee continues to bother you.) Diet: Full liquid Addtl Attending Provider Instructions: Ms. Lopez, You were admitted to the hospital with elevated liver enzymes from your TPN. We skipped your lipids for a few days, and the liver enzymes are starting to come down again. Please work with your TPN company to help keep the lipids low enough to prevent further liver injury as much as possible. For your left knee pain, Dr. Baxter saw you. He felt the Patel's cyst was not very likely to be causing the pain, and that it was probably some level of arthritis. You can use some Voltaren gel as needed to try to help with the pain. You had some right arm swelling that may have been from a small, superficial blood clot in the right arm. We gave you a few doses of a low-dose blood thinner. This had resolved by discharge. If it recurs, please see your PCP. You can also use compression wraps and elevation to help it. He would be happy to see you in the clinic if the left knee continues to bother you. Pending Studies at Discharge: No Stand-Alone Forms: My [facility] [employer], Smoking Cessation Medications and DC Order Prescriptions: Continued oxycodone 5 mg/5 mL solution 5 mg PO Q4 PRN (Reason: breakthrough pain, severe) Qty: 473 RF: 0 diclofenac sodium 1 % gel 4 g topical QID Qty: 300 RF: 2 cyclobenzaprine 5 mg tablet 5 mg PO DAILY PRN (Reason: muscle spasm) Qty: 20 RF: 0 buprenorphine HCl 8 mg tablet, sublingual 8 mg SUBLINGUAL TID RF: 0 Discharge Orders: Discharge Order (Routine); Ordered 01/24/22 Ordered By: Everton Ta Admission Data Admit Date/Time: 01/20/22 22:04 Attending Provider: Everton Ta Admit Provider: Isma Amin Primary Care Provider: Kenney Carpenter Other Providers: [place] ; Everton Ta ; Anuel Baxter Other Interventions: Discharge Summary Assessment (RN) Last Done: 01/24/22 15:27 Coding Level of Care Code D/C DAY MANAGEMENT >30 MINS Diagnoses Jaundice R17 Abnormal LFTs R79.89 Pitting edema R60.9 Pneumonia J18.9 Pancytopenia D61.818 Chronic pain syndrome G89.4 On total parenteral nutrition (TPN) Z78.9 Anxiety F41.9 Gastrointestinal tube present Z93.1 Severe protein-energy malnutrition E43
[2022-01-24] MEDS ORDERED: CLINOLIPID 20% IV FAT EMULSION 100 ML IV SCH (20:00)
[2022-01-24] MEDS ORDERED: CENTRAL TPN IV SCH (20:00)
[2022-01-24] MEDS ORDERED: AMINO ACID 8% IV SCH (20:00)
[2022-01-24] MEDS ORDERED: [UNRECOGNIZED DRUG - OTHER] IV SCH (20:00)
[2022-01-25 02:06] LABS: 18KDIGG Band REACTIVE; 23KDIGG Band REACTIVE; 23KDIGM Band NON-REACTIVE; 28KDIGG Band REACTIVE; 30KDIGG Band NON-REACTIVE; 39KDIGG Band REACTIVE; 39KDIGM Band NON-REACTIVE; 41KDIGG Band REACTIVE; 41KDIGM Band NON-REACTIVE; 45KDIGG Band NON-REACTIVE; 58KDIGG Band REACTIVE; 66KDIGG Band NON-REACTIVE; 93KDIGG Band REACTIVE; Lyme Antibodies, WB IgG POSITIVE (NEGATIVE); Lyme Antibodies, WB IgM NEGATIVE (NEGATIVE)
== END 2022-01-24 16:29 | disposition home health service (06) | DRG 441 ==
LOC: ED 14:16 → 2N 22:04 → SUATTDRO 22:04 → 2N 23:17

== ENCOUNTER 2022-02-01 14:04 | Observation (INO) ==
--- NOTE | 2022-02-01 14:59 | XRay Report ---
XR chest 2V PA/lateral HISTORY: Weakness. Heart palpitations. fluid retention COMPARISON: Chest 01/20/2022. FINDINGS: The lungs are hyperexpanded with apical predominant emphysematous changes. The heart remain s mildly enlarged. There is mild central pulmonary vascular congestion without overt edema. This susana ins unchanged. Old compression deformities again noted within the thoracic spine and lumbar spine inc luding a mid thoracic spine vertebroplasty. A right jugular central venous catheter terminates in the azygos vein. This is also unchanged. No new focal lung consolidations identified. There are old, hea led bilateral rib fractures. IMPRESSION: 1. Cardiomegaly with mild central pulmonary vascular congestion without overt edema. This remains unc hanged. 2. Emphysema. 3. The right jugular central venous catheter terminates in the azygos vein. This is unchanged in posi tion. ACT 112: Negative or not required by law. Electronically signed by: Arcadio Castaneda M.D. 02/01/2022 2:58 PM
--- NOTE | 2022-02-01 16:19 | Emergency Department Note ---
Impression & Plan Shortness of breath, Anemia, CHF (congestive heart failure), Pleural effusion ED Provider Note NAME: RUTH CHAHAL AGE: 57 SEX: F : 1965 ARRIVES VIA: Walk-In INFORMANT: Patient, ED PROVIDER(S): Karlo Mireles DO CHIEF COMPLAINT: shortness of breath HPI: Patient is a 57-year-old female who presents the ER with a past medical history of fatty liver, severe protein-energy malnutrition on TPN, history of radiation enterocolitis, chronic partial SBO s/p PEG, osteoporosis, lumbar spinal stenosis, chronic pain syndrome on chronic buprenorphine, anxiety, history of chronic pancreatitis who presents that presents the ER for swelling in the lower extremities. Notes the swelling has been present for the past 3 to 4 days. She admits to shortness of breath which has been gradually worsening. She describes diffuse severe pain in the bilateral lower extremities secondary to the swelling. She denies any headache or change in vision. No fevers. She notes her chest feels like it is completely full of fluid. She does feel her heart racing intermittently. Denies any belly pain, nausea, vomiting, or diarrhea. No dysuria, urgency, or frequency. No other exacerbating or remitting factors. She is complaining of severe pain throughout her lower e xtremities as her super swollen. ROS: See above HPI for pertinent positives & negatives. A total of 10 systems reviewed and were otherwise negative. PAST MEDICAL HISTORY:See Below PAST SURGICAL HISTORY:See Below FAMILY HISTORY:See Below SOCIAL HISTORY:See Below HOME MEDICATIONS:See Below ALLERGIES:See Below VITALS:See Below PHYSICAL EXAMINATION: GENERAL: Sitting up in bed, alert, extremely anxious, chronically ill-appearing and disheveled, malnourished EYE EXAM: normal conjunctiva. PERRL and EOM's grossly intact. OROPHARYNX: no exudate, no erythema, lips, buccal mucosa, and tongue normal and mucous membranes are moist NECK: supple, +JVD CHEST: Port located on right chest wall is clean and dry. LUNGS: Clear to auscultation. Normal chest wall mechanics HEART: no murmurs, S1 normal and S2 normal ABDOMEN: abdomen soft, non-tender, normo-active bowel sounds, no masses, no rebound or guarding. G-tube located left mid abdomen. UPPER EXTREMITIES: upper extremities are grossly normal. LOWER EXTREMITIES: Pitting edema in the bilateral lower extremities NEURO EXAM: Normal sensorium, cranial nerves II-XII grossly intact, normal speech, no gross weakness of arms, no gross weakness of legs. MEDICAL DECISION MAKING: Patient is a 57-year-old female with extensive past medical history the presents the ER for severe pain in the leg secondary to swelling and shortness of breath. IV was established blood work is obtained. On exam she has pitting edema and JVD. Labs show no significant leukocytosis. Persistent anemia at 8.3. D-dimer was elevated at 1800. BMP with mild hypokalemia 3.4. LFTs were persistently elevated from previous. T bili higher than baseline of 3. Negative. proBNP elevated at 230. COVID-negative. CT angio of the chest showed pleural effusion on the right per my read although per radiology was clean. CT abdomen abdomen pelvis was unremarkable. Patient was given Ativan per her request as when she came in she was in her own words extremely worked up and very anxious. was updated at bedside. Patient was admitted for further work-up. Triage Nursing notes reviewed. Limited review of prior medical records performed Vital Signs: reviewed and remarkable for HTN Differential diagnosis: Infection, dehydration, metabolic abnormality, hypo/hyperglycemia, electrolyte d isturbance, anemia, hypoxia, cardiac sources, intracerebral event, toxicologic, neurologic, as well as other pathologies. ER treatment provided: See below Diagnostics interpreted by me: ECG: Sinus rhythm rate of 78 Normal axis Septal Q waves QTC 487 Cardiac Monitoring: An order was placed for continuous cardiac monitoring. The monitor shows a rate of 80 with sinus rhythm. Laboratory studies: As stated above and show below. Imaging studies: CT chest and abdomen pelvis was unremarkable per radiology Consultation(s): Raina with Isma Amin for further evaluation Procedures: none Critical Care: None Past Med/Surg History Medical History Anxiety Chronic pancreatitis Esophageal reflux Fatty liver Gastrointestinal tube present Gastrostomy tube in place Hearing deficit Hypersplenism Infected venous access port Iron deficiency anemia Left ankle sprain Lumbar spinal stenosis Malnutrition Neutropenia On total parenteral nutrition (TPN) Osteoporosis Overdose Peripheral neuropathy Radiation enterocolitis Severe protein-energy malnutrition Short bowel syndrome Subclinical hypothyroidism Thoracic compression fracture Urinary incontinence Surgical History History of cholecystectomy History of colonoscopy History of esophagogastroduodenoscopy (EGD) History of kyphoplasty (~2018) History of removal of tunneled central venous catheter (CVC) with port (11/01/21) History of spinal surgery History of surgery History of total left hip arthroplasty Port-A-Cath in place Status post insertion of percutaneous endoscopic gastrostomy (PEG) tube Family History Mother Diabetes Hypertension Father Family hx of colon cancer Bladder cancer Sister Alcohol abuse Deep vein thrombosis Hypertension Brother Hypertension Grandmother Hypertension Aunt Hypertension Other Cancer Social History Smoking Status: Former smoker Tobacco Type: Cigarettes Age Started Using Tobacco: 12; Age Quit Using Tobacco: 21; Second Hand Exposure: No; Hx Alcohol Use: No Hx Substance Use: No Preferred Language: Kinyarwanda Communication Ability: Effective Visual Impairment: No Limitations [employer]inter [employer] Required: No Beliefs That Will Affect Care: None marital status: Current Living Situation: Spouse current occupational status: disabled Feels Safe at Home: Yes caffeine: Yes Dental Care, Regularly: Yes Physical Activity Frequency: Does not Exercise Seatbelt Use: always Sunscreen Use: No Assistive Devices: Cane, Walker and Wheelchair Allergies Allergies Allergy/AdvReac Type Severity Reaction Status Date / Time ibuprofen Allergy Intermediate RINGING IN Verified 02/01/22 19:31 EARS,PARTIAL LOSS HEARING ketorolac Allergy Intermediate ROARING Verified 02/01/22 19:31 SOUND IN EARS NSAIDS (Non-Steroidal Allergy Intermediate RINGING IN Verified 02/01/22 19:31 Anti-Inflamma EARS zoledronic acid Allergy Intermediate FLU LIKE Verified 02/01/22 19:31 SYMPTOMS SEVERE HEADACHE vancomycin AdvReac Severe ZACHERY Verified 02/01/22 19:31 SYNDROME alprazolam AdvReac Intermediate LOSS OF Verified 02/01/22 19:31 HEARING aspirin AdvReac Intermediate RINGING IN Verified 02/01/22 19:31 EARS,PARTIAL HEARING LOSS promethazine AdvReac Mild RESTLESS Verified 02/01/22 19:31 LEGS Home Meds Home Medications Medication Instructions Recorded Confirmed buprenorphine HCl 8 mg sublingual 8 mg SUBLINGUAL TID 11/01/20 02/01/22 tablet Previous Rx's Medication Instructions Recorded cyclobenzaprine 5 mg tablet 5 mg PO DAILY PRN #20 tab 01/04/22 diclofenac sodium 1 % topical gel 4 g TOPICAL QID #300 g 01/04/22 Results & Data (ED) Vital Signs Vital Signs - 24 hr 02/01/22 14:16 02/01/22 19:00 02/01/22 21:00 Temperature 36.8 C 36.6 C Temperature Source Oral Oral Pulse Rate 81 Pulse Rate [Right Finger] 69 74 Pulse Rhythm [Right Finger] Regular Pulse Strength [Right Finger] Normal Respiratory Rate 19 14 16 Respiratory Effort / Characteristics Non-Labored Respiratory Depth Normal Respiratory Pattern Regular Blood Pressure 154/82 H Blood Pressure [Right Arm] 174/84 H 111/63 Blood Pressure Mean 106 Blood Pressure Mean [Right Arm] 114 79 Blood Pressure Position [Right Arm] Lying Lying Pulse Oximetry 99 96 96 Oxygen Delivery Method Room Air Room Air Room Air Sepsis Recent Fever Within 48 Hours No Sepsis New/Unexplained Change in Mental Status N/A Sepsis Action Taken by Nursing No Action Required Laboratory Data Result diagrams: 02/01/22 16:28 02/01/22 16:28 Lab Results 02/01/22 02/01/22 02/01/22 Range/Units 16:28 16:28 16:28 WBC 5.24 (4.8-10.8) K/uL RBC 3.06 L (4.2-5.4) M/uL Hgb 8.3 L (12.0-16.0) g/dL Hct 26.1 L (37-47) % MCV 85.3 (80-100) fL MCH 27.1 (25-34) pg MCHC 31.8 L (32-36) g/dL RDW Std Deviation 50.9 H (36.4-46.3) fL RDW Coeff of Esau 16.4 H (11.5-14.5) % Plt Count 174 (130-400) K/uL MPV 11.8 H (7.4-10.4) fL Immature Gran % (Auto) 0.2 % Neut % (Auto) 86.8 % Lymph % (Auto) 5.5 % Laporte % (Auto) 7.3 % Eos % (Auto) 0.0 % Baso % (Auto) 0.2 % Neut # (Auto) 4.55 (1.4-6.5) K/uL Lymph # (Auto) 0.29 L (1.2-3.4) K/uL [place] # (Auto) 0.38 (0.11-0.59) K/uL Eos # (Auto) 0.00 (0-0.5) K/uL Baso # (Auto) 0.01 (0-0.2) K/uL Immature Gran # (Auto) 0.01 (0.00-0.02) K/uL PT (9.0-12.0) Seconds INR (0.9-1.1) D-Dimer (0-500) ug/L FEU Sodium 139 (136-145) mmol/L Potassium 3.4 L (3.5-5.1) mmol/L Chloride 98 (98-107) mmol/L Carbon Dioxide 32 (21-32) mmol/L Anion Gap 9 (3-11) BUN 37 H (6-23) mg/dl Creatinine 0.59 L (0.6-1.2) mg/dl Est Cr Clr Drug Dosing Not Reportable Est GFR ( Amer) 117.1 ml/min Est GFR (Non-Af Amer) 101.0 ml/min BUN/Creatinine Ratio 62.7 H (10-20) Glucose 77 (70-99(Fasting)) mg/dl Calcium 8.9 (8.5-10.1) mg/dl Total Bilirubin 4.8 H (0.2-1.0) mg/dl AST 146 H (13-39) U/L ALT 95 H (7-52) U/L Alkaline Phosphatase 539 H (34-104) U/L Troponin I High Sens (0-14) pg/ml B-Natriuretic Peptide 235 H (0-100) pg/ml Total Protein 7.6 (6.0-8.3) gm/dl Albumin 3.1 L (3.4-5.0) gm/dl Globulin 4.5 H (2.5-4.0) gm/dl Albumin/Globulin Ratio 0.7 L (0.9-2) SARS-CoV-2, RNA, NAAT (NEGATIVE) 02/01/22 02/01/22 02/01/22 Range/Units 16:28 16:28 17:27 WBC (4.8-10.8) K/uL RBC (4.2-5.4) M/uL Hgb (12.0-16.0) g/dL Hct (37-47) % MCV (80-100) fL MCH (25-34) pg MCHC (32-36) g/dL RDW Std Deviation (36.4-46.3) fL RDW Coeff of Esau (11.5-14.5) % Plt Count (130-400) K/uL MPV (7.4-10.4) fL Immature Gran % (Auto) % Neut % (Auto) % Lymph % (Auto) % [place] % (Auto) % Eos % (Auto) % Baso % (Auto) % Neut # (Auto) (1.4-6.5) K/uL Lymph # (Auto) (1.2-3.4) K/uL [place] # (Auto) (0.11-0.59) K/uL Eos # (Auto) (0-0.5) K/uL Baso # (Auto) (0-0.2) K/uL Immature Gran # (Auto) (0.00-0.02) K/uL PT 13.1 H (9.0-12.0) Seconds INR 1.2 H (0.9-1.1) D-Dimer 1800 H* (0-500) ug/L FEU Sodium (136-145) mmol/L Potassium (3.5-5.1) mmol/L Chloride (98-107) mmol/L Carbon Dioxide (21-32) mmol/L Anion Gap (3-11) BUN (6-23) mg/dl Creatinine (0.6-1.2) mg/dl Est Cr Clr Drug Dosing Est GFR ( Amer) ml/min Est GFR (Non-Af Amer) ml/min BUN/Creatinine Ratio (10-20) Glucose (70-99(Fasting)) mg/dl Calcium (8.5-10.1) mg/dl Total Bilirubin (0.2-1.0) mg/dl AST (13-39) U/L ALT (7-52) U/L Alkaline Phosphatase (34-104) U/L Troponin I High Sens 12.6 (0-14) pg/ml B-Natriuretic Peptide (0-100) pg/ml Total Protein (6.0-8.3) gm/dl Albumin (3.4-5.0) gm/dl Globulin (2.5-4.0) gm/dl Albumin/Globulin Ratio (0.9-2) SARS-CoV-2, RNA, NAAT (NEGATIVE) 02/01/22 Range/Units 20:35 WBC (4.8-10.8) K/uL RBC (4.2-5.4) M/uL Hgb (12.0-16.0) g/dL Hct (37-47) % MCV (80-100) fL MCH (25-34) pg MCHC (32-36) g/dL RDW Std Deviation (36.4-46.3) fL RDW Coeff of Esau (11.5-14.5) % Plt Count (130-400) K/uL MPV (7.4-10.4) fL Immature Gran % (Auto) % Neut % (Auto) % Lymph % (Auto) % [place] % (Auto) % Eos % (Auto) % Baso % (Auto) % Neut # (Auto) (1.4-6.5) K/uL Lymph # (Auto) (1.2-3.4) K/uL [place] # (Auto) (0.11-0.59) K/uL Eos # (Auto) (0-0.5) K/uL Baso # (Auto) (0-0.2) K/uL Immature Gran # (Auto) (0.00-0.02) K/uL PT (9.0-12.0) Seconds INR (0.9-1.1) D-Dimer (0-500) ug/L FEU Sodium (136-145) mmol/L Potassium (3.5-5.1) mmol/L Chloride (98-107) mmol/L Carbon Dioxide (21-32) mmol/L Anion Gap (3-11) BUN (6-23) mg/dl Creatinine (0.6-1.2) mg/dl Est Cr Clr Drug Dosing Est GFR ( Amer) ml/min Est GFR (Non-Af Amer) ml/min BUN/Creatinine Ratio (10-20) Glucose (70-99(Fasting)) mg/dl Calcium (8.5-10.1) mg/dl Total Bilirubin (0.2-1.0) mg/dl AST (13-39) U/L ALT (7-52) U/L Alkaline Phosphatase (34-104) U/L Troponin I High Sens (0-14) pg/ml B-Natriuretic Peptide (0-100) pg/ml Total Protein (6.0-8.3) gm/dl Albumin (3.4-5.0) gm/dl Globulin (2.5-4.0) gm/dl Albumin/Globulin Ratio (0.9-2) SARS-CoV-2, RNA, NAAT NEGATIVE (NEGATIVE) Administered Medications Potassium Chloride (K Richi / Wtr) 10 meq in 100 mls @ 100 mls/hr IV Q1H ARJUN; Protocol Stop: 02/01/22 21:44 Last Admin: 02/01/22 21:08 Dose: 100 mls/hr Documented by: [id number] Infusion: 02/01/22 21:02 Dose: 100 mls/hr Documented by: [id number] Admin: 02/01/22 20:02 Dose: 100 mls/hr Documented by: [id number] Discontinued Medications Furosemide (Furosemide 40 Mg/4 Ml Vial) 40 mg IV ONE ONE Stop: 02/01/22 19:36 Last Admin: 02/01/22 20:02 Dose: 40 mg Documented by: [id number] Ioversol (Optiray 320 125ml) 116 ml IV ONCE ONE Stop: 02/01/22 18:24 Last Admin: 02/01/22 18:23 Dose: 116 ml Documented by: [id number] Lorazepam (Lorazepam 2 Mg/1 Ml Vial) 0.5 mg IV NOW STA Stop: 02/01/22 16:21 Last Admin: 02/01/22 16:31 Dose: 0.5 mg Documented by: [id number] Imaging Data Radiologist's Impression: Chest X-Ray 02/01/22 14:22 XR chest 2V PA/lateral HISTORY: Weakness. Heart palpitations. fluid retention COMPARISON: Chest 01/20/2022. FINDINGS: The lungs are hyperexpanded with apical predominant emphysematous changes. The heart remains mildly enlarged. There is mild central pulmonary vascular congestion without overt edema. This remains unchanged. Old compression deformities again noted within the thoracic spine and lumbar spine including a mid thoracic spine vertebroplasty. A right jugular central venous catheter terminates in the azygos vein. This is also unchanged. No new focal lung consolidations identified. There are old, healed bilateral rib fractures. IMPRESSION: 1. Cardiomegaly with mild central pulmonary vascular congestion without overt edema. This remains unchanged. 2. Emphysema. 3. The right jugular central venous catheter terminates in the azygos vein. This is unchanged in position. ACT 112: Negative or not required by law. Electronically signed by: Arcadio Castaneda M.D. 02/01/2022 2:58 PM Abdomen/Pelvis CT 02/01/22 17:15 CT abd pelvis IV con only CLINICAL HISTORY: abd pain kiet bili COMPARISON STUDY: 01/20/2022 CT DOSE: TECHNIQUE: Standard CT of the Abdomen and Pelvis was performed with IV contrast. A dose lowering technique was utilized adhering to the principles of ALARA. Contrast Volume: Optiray 320, 116 ml. The patient did not receive oral contrast. FINDINGS: Lung base: The lung bases are clear. Abdominal cavity: There is no evidence for abdominal mass, adenopathy or ascites. Liver: There is homogeneous attenuation of the liver parenchyma. There is no evidence for enhancing mass lesion. Spleen: There is homogeneous attenuation of the splenic parenchyma. There is no enhancing mass lesion. Pancreas: There is homogeneous attenuation of the pancreatic parenchyma. There is no evidence for mass lesion or peripancreatic fluid collection. Gall Bladder: Surgical clips are again seen. Adrenal glands: The adrenal glands are normal in size and attenuation. There is no evidence for enhancing mass lesion. Kidneys: There is homogeneous attenuation of the renal parenchyma bilaterally. There is no evidence for renal calculus or hydronephrosis. There is no evidence for enhancing mass. Bowel: A PEG tube is again seen within the stomach. The stomach and small bowel loops are again mildly dilated and fluid-filled. The findings are again essentially unchanged. This probably represents chronic ileus versus gastroenteritis. Follow-up small bowel series may be helpful for further evaluation. There is no evidence for mass lesion. There are no inflammatory changes present. There is no evidence for free air. Bladder: The bladder is grossly distended with no evidence for focal mass, calculus or diverticulum. There is imaging artifact present related to left hip replacement. : There is imaging artifact present related to left hip replacement . Vasculature: There is no evidence for aneurysmal dilatation of the abdominal aorta. Atherosclerotic calcification is present. Osseous structures: There is no acute osseous pathology. Extensive degenerative changes are again seen. IMPRESSION: 1. Compared to previous examination, mildly dilated, fluid-filled loops of small bowel in the stomach are again seen and essentially unchanged. 2. The findings probably represented an ileus versus gastroenteritis. Small bowel series, on a nonemergent basis, could be obtained for further evaluation. 3. Otherwise, no acute intra-abdominal or pelvic abnormality. 4. Additional nonacute findings are delineated above. ACT 112: Negative or not required by law. Electronically signed by: Isauro Franco M.D. 02/01/2022 6:55 PM Chest CTA 02/01/22 17:15 CT angio chest PE protocol CLINICAL HISTORY: sob COMPARISON STUDY: No previous studies for comparison. CT DOSE: 971.33 mGy.cm TECHNIQUE: CT Angio of the chest was performed.followed by image post processing with coronal, and sagittal MIP reformats. Contrast Volume: Optiray 320, 116 ml. However, there was extravasation of approximately 100 mL of contrast into the left medial upper arm on the initial injection. FINDINGS: Vasculature: There is homogeneous perfusion of the pulmonary vasculature bilaterally. No intraluminal filling defects or evidence for pulmonary embolus is seen. Airway: The airway is clear. No endobronchial lesion is identified. Lungs: The lungs are clear of acute alveolar opacities, air bronchograms or pulmonary nodules. Pleura: There is no evidence for pleural effusion. There is no evidence for pneumothorax. Mediastinum: There is no evidence for pathologic adenopathy. The heart size is within normal limits. The thoracic aorta is within normal limits. There is no evidence for pericardial effusion. Osseous structures: There is no acute osseous pathology. Impression: 1. No CTA evidence for pulmonary embolus. 2. No acute chest disease. ACT 112: Negative or not required by law. Electronically signed by: Isauro Franco M.D. 02/01/2022 6:45 PM Discharge Plan Visit Data Chief Complaint: Illness Stated Complaint: DEHYDRATION, CENTRAL PORT ISSUES ED Provider: Karlo Mireles Discharge Problem: Shortness of breath, Anemia, CHF (congestive heart failure), Pleural effusion Forms Stand Alone Forms: [facility] Prescriptions Prescriptions: No Action diclofenac sodium 1 % gel 4 g topical QID Qty: 300 RF: 2 cyclobenzaprine 5 mg tablet 5 mg PO DAILY PRN (Reason: muscle spasm) Qty: 20 RF: 0 buprenorphine HCl 8 mg tablet, sublingual 8 mg SUBLINGUAL TID RF: 0 Referrals Referrals: Kenney Carpenter MD [Primary Care Provider] - Discharge Problem: Anemia Qualifiers: Anemia type: unspecified type Qualified Code(s): D64.9 - Anemia, unspecified CHF (congestive heart failure) Qualifiers: Heart failure type: unspecified Heart failure chronicity: unspecified Qualified Code(s): I50.9 - Heart failure, unspecified
[2022-02-01] MEDS ORDERED: LORazepam 2 MG/1 ML VIAL IV STA (16:20)
[2022-02-01 16:43] LABS: Basophils # (auto) 0.01 K/uL (0-0.2); Basophils % (auto) 0.2 %; Hematocrit (blood only) 26.1 % (37-47); Hemoglobin 8.3 g/dL (12.0-16.0); Immature Granulocytes # (auto) 0.01 K/uL (0.00-0.02); Immature Granulocytes % (auto) 0.2 %; Lymphocytes # (auto) 0.29 K/uL (1.2-3.4); Lymphocytes % (auto) 5.5 %; Mean Corpuscular Hemoglobin 27.1 pg (25-34); Mean Corpuscular Hgb Conc 31.8 g/dL (32-36); Mean Corpuscular Volume 85.3 fL (80-100); Mean Platelet Volume 11.8 fL (7.4-10.4); Monocytes # (auto) 0.38 K/uL (0.11-0.59); Monocytes % (auto) 7.3 %; Neutrophils # (auto) 4.55 K/uL (1.4-6.5); Neutrophils % (auto) 86.8 %; Platelet Count 174 K/uL (130-400); RDW Coefficient of Variation 16.4 % (11.5-14.5); RDW Standard Deviation 50.9 fL (36.4-46.3); Red Blood Count 3.06 M/uL (4.2-5.4); White Blood Count 5.24 K/uL (4.8-10.8)
[2022-02-01 17:02] LABS: Alanine Aminotransferase 95 U/L (7-52); Albumin Globulin Ratio 0.7 (0.9-2); Albumin Level 3.1 gm/dl (3.4-5.0); Alkaline Phosphatase 539 U/L (34-104); Anion Gap 9 (3-11); Aspartate Aminotransferase 146 U/L (13-39); BUN Creatinine Ratio 62.7 (10-20); Bilirubin,Total 4.8 mg/dl (0.2-1.0); Blood Urea Nitrogen 37 mg/dl (6-23); Calcium 8.9 mg/dl (8.5-10.1); Carbon Dioxide 32 mmol/L (21-32); Chloride 98 mmol/L (98-107); Est GFR (African American) 117.1 ml/min; Globulin 4.5 gm/dl (2.5-4.0); Glucose 77 mg/dl (70-99(Fasting)); Potassium 3.4 mmol/L (3.5-5.1); Sodium 139 mmol/L (136-145); Total Protein 7.6 gm/dl (6.0-8.3)
[2022-02-01 17:05] LABS: D Dimer 1800 ug/L FEU (0-500)
[2022-02-01 17:53] LABS: INR 1.2 (0.9-1.1); Prothrombin Time 13.1 Seconds (9.0-12.0)
[2022-02-01] MEDS ORDERED: OPTIRAY 320 125ml IV ONE (18:23)
--- NOTE | 2022-02-01 18:47 | CT Scan Report ---
CT angio chest PE protocol CLINICAL HISTORY: sob COMPARISON STUDY: No previous studies for comparison. CT DOSE: 971.33 mGy.cm TECHNIQUE: CT Angio of the chest was performed.followed by image post processing with coronal, and s agittal MIP reformats. Contrast Volume: Optiray 320, 116 ml. However, there was extravasation of approximately 100 mL of co ntrast into the left medial upper arm on the initial injection. FINDINGS: Vasculature: There is homogeneous perfusion of the pulmonary vasculature bilaterally. No intraluminal filling defects or evidence for pulmonary embolus is seen. Airway: The airway is clear. No endobronchial lesion is identified. Lungs: The lungs are clear of acute alveolar opacities, air bronchograms or pulmonary nodules. Pleura: There is no evidence for pleural effusion. There is no evidence for pneumothorax. Mediastinum: There is no evidence for pathologic adenopathy. The heart size is within normal limits. The thoracic aorta is within normal limits. There is no evidence for pericardial effusion. Osseous structures: There is no acute osseous pathology. Impression: 1. No CTA evidence for pulmonary embolus. 2. No acute chest disease. ACT 112: Negative or not required by law. Electronically signed by: Isauro Franco M.D. 02/01/2022 6:45 PM
--- NOTE | 2022-02-01 18:57 | CT Scan Report ---
CT abd pelvis IV con only CLINICAL HISTORY: abd pain kiet bili COMPARISON STUDY: 01/20/2022 CT DOSE: TECHNIQUE: Standard CT of the Abdomen and Pelvis was performed with IV contrast. A dose lowering shweta hnique was utilized adhering to the principles of ALARA. Contrast Volume: Optiray 320, 116 ml. The patient did not receive oral contrast. FINDINGS: Lung base: The lung bases are clear. Abdominal cavity: There is no evidence for abdominal mass, adenopathy or ascites. Liver: There is homogeneous attenuation of the liver parenchyma. There is no evidence for enhancing m ass lesion. Spleen: There is homogeneous attenuation of the splenic parenchyma. There is no enhancing mass lesion . Pancreas: There is homogeneous attenuation of the pancreatic parenchyma. There is no evidence for mas s lesion or peripancreatic fluid collection. Gall Bladder: Surgical clips are again seen. Adrenal glands: The adrenal glands are normal in size and attenuation. There is no evidence for enhan cing mass lesion. Kidneys: There is homogeneous attenuation of the renal parenchyma bilaterally. There is no evidence f or renal calculus or hydronephrosis. There is no evidence for enhancing mass. Bowel: A PEG tube is again seen within the stomach. The stomach and small bowel loops are again mildl y dilated and fluid-filled. The findings are again essentially unchanged. This probably represents ch ronic ileus versus gastroenteritis. Follow-up small bowel series may be helpful for further evaluatio n. There is no evidence for mass lesion. There are no inflammatory changes present. There is no evide nce for free air. Bladder: The bladder is grossly distended with no evidence for focal mass, calculus or diverticulum. There is imaging artifact present related to left hip replacement. : There is imaging artifact present related to left hip replacement . Vasculature: There is no evidence for aneurysmal dilatation of the abdominal aorta. Atherosclerotic c alcification is present. Osseous structures: There is no acute osseous pathology. Extensive degenerative changes are again see n. IMPRESSION: 1. Compared to previous examination, mildly dilated, fluid-filled loops of small bowel in the stomach are again seen and essentially unchanged. 2. The findings probably represented an ileus versus gastroenteritis. Small bowel series, on a noneme rgent basis, could be obtained for further evaluation. 3. Otherwise, no acute intra-abdominal or pelvic abnormality. 4. Additional nonacute findings are delineated above. ACT 112: Negative or not required by law. Electronically signed by: Isauro Franco M.D. 02/01/2022 6:55 PM
[2022-02-01] MEDS ORDERED: FUROSEMIDE 40 MG/4 ML VIAL IV ONE (19:35)
[2022-02-01] MEDS: POTASSIUM CHLORIDE / WTR 10 MEQ/100 ML PLCT IV SCH ×2 (20:02→21:08)
--- NOTE | 2022-02-01 20:27 | History & Physical Report ---
Date of Service February 01, 2022 History of Present Illness Chief Complaint: fluid in legs Primary Care Provider: Kenney Carpenter MD Caroline Lopez is a 57 yo female with a complex PMHx including severe protein-energy malnutrition on TPN, hepatic steatosis, pancytopenia, radiation enterocolitis, chronic partial SBO s/p PEG, osteoporosis, lumbar spinal stenosis, chronic pain disorder on chronic buprenorphine, chronic pancreatitis, and anxietywho presented to [facility] ED on 02/01 for LE edema. Of note patient was recently admitted at [facility] from 01/20 - 01/24 for Allergies Allergy/AdvReac Type Severity Reaction Status Date / Time ibuprofen Allergy Intermediate RINGING IN Verified 02/01/22 19:31 EARS,PARTIAL LOSS HEARING ketorolac Allergy Intermediate ROARING Verified 02/01/22 19:31 SOUND IN EARS NSAIDS (Non-Steroidal Allergy Intermediate RINGING IN Verified 02/01/22 19:31 Anti-Inflamma EARS zoledronic acid Allergy Intermediate FLU LIKE Verified 02/01/22 19:31 SYMPTOMS SEVERE HEADACHE vancomycin AdvReac Severe ZACHERY Verified 02/01/22 19:31 SYNDROME alprazolam AdvReac Intermediate LOSS OF Verified 02/01/22 19:31 HEARING aspirin AdvReac Intermediate RINGING IN Verified 02/01/22 19:31 EARS,PARTIAL HEARING LOSS promethazine AdvReac Mild RESTLESS Verified 02/01/22 19:31 LEGS Home Medications Medication Instructions Recorded Confirmed Type buprenorphine HCl 8 mg sublingual 8 mg SUBLINGUAL TID 11/01/20 02/01/22 History tablet cyclobenzaprine 5 mg tablet 5 mg PO DAILY PRN #20 tab 01/04/22 02/01/22 Rx diclofenac sodium 1 % topical gel 4 g TOPICAL QID #300 g 01/04/22 02/01/22 Rx Past Med/Surg History Medical History Anxiety Chronic pancreatitis Esophageal reflux Fatty liver Gastrointestinal tube present Gastrostomy tube in place Hearing deficit Hypersplenism Infected venous access port Iron deficiency anemia Left ankle sprain Lumbar spinal stenosis Malnutrition Neutropenia On total parenteral nutrition (TPN) Osteoporosis Overdose Peripheral neuropathy Radiation enterocolitis Severe protein-energy malnutrition Short bowel syndrome Subclinical hypothyroidism Thoracic compression fracture Urinary incontinence Surgical History History of cholecystectomy History of colonoscopy History of esophagogastroduodenoscopy (EGD) History of kyphoplasty (~2018) History of removal of tunneled central venous catheter (CVC) with port (11/01/21) History of spinal surgery History of surgery History of total left hip arthroplasty Port-A-Cath in place Status post insertion of percutaneous endoscopic gastrostomy (PEG) tube Family History Mother Diabetes Hypertension Father Family hx of colon cancer Bladder cancer Sister Alcohol abuse Deep vein thrombosis Hypertension Brother Hypertension Grandmother Hypertension Aunt Hypertension Other Cancer Social History Smoking Status: Former smoker Tobacco Type: Cigarettes Age Started Using Tobacco: 12; Age Quit Using Tobacco: 21; Second Hand Exposure: No; Hx Alcohol Use: No Hx Substance Use: No Preferred Language: Croatian Communication Ability: Effective Visual Impairment: No Limitations Dry House Wheeler Required: No Beliefs That Will Affect Care: None marital status: Current Living Situation: Spouse current occupational status: disabled Feels Safe at Home: Yes caffeine: Yes Dental Care, Regularly: Yes Physical Activity Frequency: Does not Exercise Seatbelt Use: always Sunscreen Use: No Assistive Devices: Cane, Walker and Wheelchair Results & Data Results & Data ([facility]) Vital Signs (Past 12 Hours) Vital Signs Temp Pulse Pulse Resp BP BP Pulse Ox 02/01/22 19:00 69 14 174/84 H 96 02/01/22 14:16 36.8 C 81 19 154/82 H 99
[2022-02-01] MEDS ORDERED: TPN/PPN CONSULT PHARMACY STA (21:44)
--- NOTE | 2022-02-01 22:10 | History & Physical Report ---
Date of Service February 01, 2022 Assessment & Plan (1) Shortness of breath: (2) Anemia: (3) CHF (congestive heart failure): (4) Effusion, left knee: (5) Jaundice: (6) Pitting edema: (7) Hepatic steatosis: (8) Radiation enterocolitis: (9) Chronic pseudo-obstruction of small intestine: (10) Abnormal LFTs: (11) Cachexia: (12) On total parenteral nutrition (TPN): (13) Anxiety: (14) Fatty liver: (15) Malnutrition: (16) Gastrointestinal tube present: Plan: Patient is a 57 yo female with a complex PMHx including severe protein-energy malnutrition on TPN, hepatic steatosis, pancytopenia, radiation enterocolitis, chronic partial SBO s/p PEG, osteoporosis, lumbar spinal stenosis, chronic pain disorder on chronic buprenorphine, chronic pancreatitis, and anxiety admitted for worsening shortness of breath and edema. Shortness of breath/Edema: -CXR: Cardiomegaly w/ mild central pulmonary vasc. congestion w/o overt edema, unchanged. -CTA w/o evidence of pulmonary embolus. -Hgb 8.3, Albumin 3.1 -SoB may be from increased fluid from third spacing vs anemia -Edema most likely from third spacing as well. -Given 40mg IV Lasix in ED. Monitor I&O's. -Monitor blood pressure. If large drop in BP, consider giving albumin. Abnormal LFTs/Jaundice/Hepatic steatosis: -AST increased to 146, ALT increased to 95, Alk phos increased to 539, T. Bili increased to 4.8. -Continue TPN but withhold lipids for possible contribution to elevated LFTs, as this caused downtrend at last admission. -Continue to trend w/ AM CMP. Radiation Enterocolitis/on TPN/Malnutrition: -Continue TPN as above. Consulted Dietary and Pharmacy for TPN management. -AM Mg, Phos, CMP. Chronic pain - Continue home buprenorphine and Flexeril. Added on QOD Methylnaltrexone due to chronic SBO. Chronic Pseudo-obstruction of small intestine: -CT Abd/Pelv: mildly dilated, fluid filled loops of small bowel in the stomach, unchanged - may represent ileus vs gastroenteritis. -Continue TPN as above, pain control as above. Anemia: -Hgb 8.3 today. Chronically low, baseline around 10. -Transfusion threshold <7. -Continue to trend CBC. Hypokalemia: -Potassium 3.4 on arrival. -Replenished 40meq K+ IV. -Monitor w/ AM CMP. DVT Prophylaxis: Lovenox 40mg SQ Daily F/E/N/GI: TPN, pharmacy and dietary consult in place. Code Status: Conditional code compressions only - DNI. Was unable to ask for code status before he left, code status based off last admission, will need to ask Caroline or tomorrow if code status needs changed. Dispo: Med/Surg Tele. Patient has been frequently in and out of hospital and condition may require re-evaluation of need for short term rehab benefit. History of Present Illness Chief Complaint: Lower extremity edema, shortness of breath Primary Care Provider: Kenney Carpenter MD Caroline is a 57 yo female with a complex PMHx including severe protein-energy malnutrition on TPN, hepatic steatosis, pancytopenia, radiation enterocolitis, chronic partial SBO s/p PEG, osteoporosis, lumbar spinal stenosis, chronic pain disorder on chronic buprenorphine, chronic pancreatitis, and anxietywho presented to the ED with increased lower extremity edema, pain, and shortness of breath since discharge on 01/24. Patient was asleep during the encounter having recently taken pain medication, history was obtained from at bedside. relays Caroline has had increased swelling in her legs since she was discharged. Patient's edema has progressed to weeping in legs and she has also developed a few petechial rashes at the right anterior lynn. She has also had increased shortness of breath requiring elevation of the bed. Her jaundice has remained about the same since her last admission. She's had more frequent emptying of her gastric contents through her stomach bag and has also increased frequency of drinking water and thirst. She is usually on TPN and may have easy to chew or light foods such as crackers or ice cream. She had some dry heaving the day prior but no vomiting. denies any complaints of fevers, chills, abdominal pain, changes in vision or hearing. said she has a history of scoliosis for which she has a hard time straightening herself out. Allergies Allergy/AdvReac Type Severity Reaction Status Date / Time ibuprofen Allergy Intermediate RINGING IN Verified 02/01/22 19:31 EARS,PARTIAL LOSS HEARING ketorolac Allergy Intermediate ROARING Verified 02/01/22 19:31 SOUND IN EARS NSAIDS (Non-Steroidal Allergy Intermediate RINGING IN Verified 02/01/22 19:31 Anti-Inflamma EARS zoledronic acid Allergy Intermediate FLU LIKE Verified 02/01/22 19:31 SYMPTOMS SEVERE HEADACHE vancomycin AdvReac Severe ZACHERY Verified 02/01/22 19:31 SYNDROME alprazolam AdvReac Intermediate LOSS OF Verified 02/01/22 19:31 HEARING aspirin AdvReac Intermediate RINGING IN Verified 02/01/22 19:31 EARS,PARTIAL HEARING LOSS promethazine AdvReac Mild RESTLESS Verified 02/01/22 19:31 LEGS Home Medications Medication Instructions Recorded Confirmed Type buprenorphine HCl 8 mg sublingual 8 mg SUBLINGUAL TID 11/01/20 02/01/22 History tablet cyclobenzaprine 5 mg tablet 5 mg PO DAILY PRN #20 tab 01/04/22 02/01/22 Rx diclofenac sodium 1 % topical gel 4 g TOPICAL QID #300 g 01/04/22 02/01/22 Rx Past Med/Surg History Medical History Anxiety Chronic pancreatitis Esophageal reflux Fatty liver Secondary to chronic TPN use Gastrointestinal tube present Gastrostomy tube in place Hearing deficit Hypersplenism Infected venous access port Iron deficiency anemia IRON INFUSIONS IN PAST Left ankle sprain Lumbar spinal stenosis Malnutrition Neutropenia On total parenteral nutrition (TPN) 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 Osteoporosis Overdose Peripheral neuropathy Radiation enterocolitis Severe protein-energy malnutrition Short bowel syndrome Subclinical hypothyroidism Thoracic compression fracture Urinary incontinence Surgical History History of cholecystectomy History of colonoscopy History of esophagogastroduodenoscopy (EGD) History of kyphoplasty (~2018) History of removal of tunneled central venous catheter (CVC) with port (11/01/21) Removal IV Central Catheter(Not Applicable) - Madhav Harris, DO 11/01/21 History of spinal surgery THORACIC AND LUMBAR AREA TUMOR REMOVED 1991 + 1992 - RADIATION 5 WEEKS History of surgery PEG TUBE INSERTION (NOTHING RUNS THROUGH PEG TUBE/USED ONLY FOR RELEASING FOOD PRODUCTS D/T SMALL BOWEL OBSTRUCTION) "PT EATS FOR COMFORT" History of total left hip arthroplasty Port-A-Cath in place BRUNER Status post insertion of percutaneous endoscopic gastrostomy (PEG) tube Family History Mother Diabetes Hypertension Father Family hx of colon cancer Bladder cancer Sister Alcohol abuse Deep vein thrombosis Hypertension Brother Hypertension Grandmother Hypertension Aunt Hypertension Other Cancer Social History Smoking Status: Former smoker Tobacco Type: Cigarettes Age Started Using Tobacco: 12; Age Quit Using Tobacco: 21; Second Hand Exposure: No; Hx Alcohol Use: No Hx Substance Use: No Preferred Language: Kiswahili Communication Ability: Effective Visual Impairment: No Limitations 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 Respiratory: normal respiratory effort, lungs clear to auscultation Cardiovascular: Rate/Rhythm: regular rate and regular rhythm Heart Sounds: normal S1 and normal S2 Vessels: + JVD (mild) Extremities: normal capillary refill and + edema Gastrointestinal (Abdomen): Port tube in place, PEG tube in place in LLQ. Skin: scattered petechial rashes right lower lynn varying in size from pinpoint to a few mm. Results & Data Results & Data ([facility]) Vital Signs (Past 12 Hours) Vital Signs Temp Pulse Pulse Resp BP BP Pulse Ox 02/01/22 21:00 36.6 C 74 16 111/63 96 02/01/22 19:00 69 14 174/84 H 96 02/01/22 14:16 36.8 C 81 19 154/82 H 99 Code Status & VTE Plan VTE Prophylaxis Plan VTE Prophylaxis will be ordered: Yes Supervising Physician Co-Signing Physician Notes Attending addendum: I have physically seen this patient, have supervised the medical residents activities, and agree with the H&P unless as otherwise noted. Assessment and Plan: Pulmonary edema/shortness of breath- Status post furosemide 40 mg IV from the ED. hold further and monitor output The patient will be admitted to telemetry for serial cardiac enzymes, serial EKG's, cardiac rhythm monitoring and a 2-D echocardiogram with Dopplers. Albumin 3.1. If inadequate response will give albumin IV Radiation enterocolitis- TPN being adjusted as an outpatient to address abnormal LFTs Nutrition consult Serial laboratories Ileus suggested on CT May ultimately be a candidate for Relistor/Movantik Elevated D-dimer- CTA chest negative for PE Patient may require rehab stay Resident Activity Tracking Resident Involvement: Resident Care Provided Care Provided: Adult Hospital Medicine (1) CHF (congestive heart failure) Heart failure chronicity: unspecified Heart failure type: unspecified Qualified Code(s): I50.9 - Heart failure, unspecified (2) Anemia Anemia type: unspecified type Qualified Code(s): D64.9 - Anemia, unspecified (3) Malnutrition Malnutrition type: protein-calorie malnutrition Protein-calorie malnutrition severity: severe Qualified Code(s): E43 - Unspecified severe protein-calorie malnutrition
[2022-02-01] MEDS ORDERED: CYCLOBENZAPRINE HCL 5 MG TAB PO PRN (22:32)
[2022-02-01 23:30] LABS: Appearance Urine Clear (Clear); Bilirubin Urine Negative (Negative); Blood Urine Negative (Negative); Color Urine Yellow; Glucose Urine UA Negative (Negative); Ketones Urine Negative (Negative); Leukocyte Esterase Urine Negative (Negative); Nitrite Urine Negative (Negative); Protein Urine Negative (Negative); Urobilinogen Urine Negative (Negative)
[2022-02-02] MEDS ORDERED: TPN/PPN CONSULT PHARMACY PRN (00:56)
[2022-02-02 07:58] LABS: Hematocrit (blood only) 23.3 % (37-47); Hemoglobin 7.5 g/dL (12.0-16.0); Lymphocytes # (auto) 0.36 K/uL (1.2-3.4); Mean Corpuscular Hemoglobin 27.2 pg (25-34); Mean Corpuscular Hgb Conc 32.2 g/dL (32-36); Mean Corpuscular Volume 84.4 fL (80-100); Mean Platelet Volume 10.9 fL (7.4-10.4); Monocytes # (auto) 0.29 K/uL (0.11-0.59); Monocytes % (auto) 6.4 %; Neutrophils # (auto) 3.86 K/uL (1.4-6.5); Neutrophils % (auto) 85.6 %; Platelet Count 164 K/uL (130-400); RDW Coefficient of Variation 16.5 % (11.5-14.5); RDW Standard Deviation 50.5 fL (36.4-46.3); Red Blood Count 2.76 M/uL (4.2-5.4); White Blood Count 4.51 K/uL (4.8-10.8)
[2022-02-02 08:19] LABS: RBC Morphology Unremarkable
[2022-02-02 08:34] LABS: Albumin Globulin Ratio 0.7 (0.9-2); Albumin Level 2.6 gm/dl (3.4-5.0); BUN Creatinine Ratio 46.1 (10-20); Bilirubin,Total 4.2 mg/dl (0.2-1.0); Calcium 8.4 mg/dl (8.5-10.1); Creatinine Clr Calc Pharmacy 50.1 ml/min; Est GFR (African American) 100.2 ml/min; Est GFR (Non-African American) 86.5 ml/min; Globulin 3.8 gm/dl (2.5-4.0); Magnesium 1.9 mg/dl (1.7-2.4); Phosphorus 3.4 mg/dl (2.5-4.9); Potassium 3.4 mmol/L (3.5-5.1); Total Protein 6.4 gm/dl (6.0-8.3)
[2022-02-02] MEDS: METHYLNALTREXONE BROMIDE 12 MG/0.6 ML VIAL SQ SCH (09:15)
[2022-02-02] MEDS: HEPARIN SOD 5,000 UNIT/0.5 ML VIAL SQ SCH ×2 (09:16→20:50)
[2022-02-02] MEDS: DICLOFENAC SOD 1% GEL 100 GM TUBE EXT SCH ×4 (09:16→20:31)
[2022-02-02] MEDS: buprenorphine HCL 8 MG SUBL SL SCH ×3 (09:19→20:47)
[2022-02-02] MEDS: LORazepam 0.5 MG TAB PO PRN ×2 (11:21→19:47)
[2022-02-02] MEDS: FUROSEMIDE 40 MG/4 ML VIAL IV SCH ×2 (11:21→22:22)
[2022-02-02] MEDS: POTASSIUM CHLORIDE PWD 20 MEQ PACK GT SCH ×2 (11:21→21:01)
--- NOTE | 2022-02-02 13:18 | Pharmacy Report ---
Pharmacy PN Initial Consult - Date of Service February 02, 2022 - Scope Pharmacy has been consulted to manage parenteral nutrition orders and order appropriate labs. As part of the Nutrition Support Team guidelines, pharmacy will work in conjunction with dietary when determining the patients caloric needs. - Subjective The patient is a 57 year old F admitted on 02/01/22 21:43 for FLUID OVERLOAD. Patient is to receive parenteral nutrition for severe protein-energy malnut rition. Pertinent PMH: * Radiation enterocolitis w/ chronic partial SBO s/p PEG - Objective Height: 4 ft 11 in Weight: 39.3 kg Diet: NPO Vascular Access:: * Jaime Intake & Output (Last 24Hrs): Intake & Output 01/31/22 02/01/22 02/02/22 02/03/22 06:59 06:59 06:59 06:59 Intake Total 200 / 200 Output Total 1050 / 1050 Balance -850 / -850 Weight 39.3 kg 39.3 kg Laboratory Data (Last 24 Hrs):: 02/01/22 02/02/22 16:28 07:41 Sodium 139 138 Potassium 3.4 L 3.4 L Chloride 98 98 Carbon Dioxide 32 33 H BUN 37 H 35 H Creatinine 0.59 L 0.76 Glucose 77 61 L Calcium 8.9 8.4 L Phosphorus 3.4 Magnesium 1.9 Total Bilirubin 4.8 H 4.2 H AST 146 H 125 H ALT 95 H 79 H Alkaline Phosphatase 539 H 465 H Albumin 3.1 L 2.6 L Nutrition Assessment:: Please refer to the Notes section of the EMR for the most recent security lead note. - Assessment * 57 yo F admitted secondary to lower extremity edema and shortness of breath. * Volume overload is likely due to amount of fluids she received in home TPN (~62 mL/kg/day). * Presents with transaminitis again due to hepatic steatosis and jaundice. * Will hold lipids for now. * Electrolytes mostly within normal limits outside of low potassium and elevated serum CO2. * Patient will be on a cyclic TPN that will run for 12 hours from 2000 to 0800 per registered dietitian. - Plan For day 1 of TPN administration, the following will be ordered: Macronutrients Amino acids 77 grams/day Dextrose 134 grams/day No lipids Micronutrients Sodium chloride 80 mEq Potassium phosphate 15 mMol Potassium chloride 80 mEq Magnesium sulfate 4.06 mEq Multivitamins 10 mL Trace Elements 1 mL Famotidine 20 mg Total volume 1051 mL to be infused over 12 hrs will provide 764 kcal/day Final osmolarity 1732 mOsm/L (maximum for PPN is 900 mOsm/L) * Central line = Jaime Labs to be ordered per PN order protocol Pharmacy will follow and adjust parenteral nutrition orders on a daily basis. Thank you.
--- NOTE | 2022-02-02 13:27 | Electrocardiogram Report ---
Test Reason : Blood Pressure : / mmHG Vent. Rate : 078 BPM Atrial Rate : 078 BPM P-R Int : 154 ms QRS Dur : 074 ms QT Int : 428 ms P-R-T Axes : 047 021 042 degrees QTc Int : 487 ms Normal sinus rhythm Septal infarct , age undetermined Abnormal ECG When compared with ECG of 20-JAN-2022 14:43, Premature ventricular complexes are no longer Present QRS duration has decreased Septal infarct is now Present Confirmed by Kaden Breaux ([id number]) on 02/02/2022 1:27:27 PM Referred By: REFERRED SELF Confirmed By:Kaden Breaux
--- NOTE | 2022-02-02 13:57 | Hospitalist Progress Note ---
Date of Service February 02, 2022 Assessment & Plan (1) Shortness of breath: Plan: Possibly due to third spaced fluid into the pulmonary parenchyma. Lasix diuresis. Supplemental oxygen as needed. Serial chest x-ray (2) Anemia: Plan: Chronic. No overt GI bleeding. Serial lab studies (3) CHF (congestive heart failure): Plan: Acute diastolic CHF. Lasix diuresis. Serial chest x-ray (4) Effusion, left knee: Plan: She may have a Patel's cyst behind the left knee. Orthopedic consultation requested (5) Chronic pseudo-obstruction of small intestine: Plan: May benefit from addition of Reglan. PEG tube has been placed to intermittent low wall suction with significant output so far. (6) Cachexia: Plan: Due to severe chronic malnutrition. Resume PEG tube feedings when able (7) Anxiety: Plan: Ativan as needed (8) Malnutrition: Plan: Resume PEG tube feedings when able Plan: Dispo: Eventual discharge to home. Possible SNF placement if warranted by OT and PT evaluations. Admission and Anticipated Discharge Date Admission Date: February 01, 2022 Subjective Chronically ill appearing 57-year-old female. She has chronic malnutrition and is PEG tube feeding dependent. She had a considerable amount of PEG tube fluid output once it was placed to intermittent low wall suction. She has chronic severe malnutrition which is contributing overall to her edema. She also has left knee pain possibly from a Bakers cyst. Hypokalemia is being addressed. CTA negative for PE on admission Review of Systems Review of Systems: Constitutional-no fever or chills ENT-no blurred vision, no double vision, no epistaxis, no sore throat Respiratory-no cough, no wheezing, no shortness of breath Cardiac-no palpitations, no chest pain, no syncope GI-chronic nausea. Denies vomiting, diarrhea, melena, hematochezia -no urinary retention, no urinary incontinence, no dysuria, no hematuria Musculoskeletal-no joint pain, no muscle tenderness Skin-no bruising, no rashes, no pruritus Neuro-no isolated weakness, no paresthesia. Chronic generalized weakness Psych-anxiety is an issue while hospitalized Physical Exam Physical Exam: General-alert and oriented x3, no fevers, no chills. Appears cachectic and chronically ill HEENT-head atraumatic and normocephalic, pupils equal and reactive to light, extraocular muscles intact Neck-no lymphadenopathy or thyromegaly, trachea midline Chest-diminished breath sounds bilaterally. No wheezing Cardiac-regular rate and rhythm, normal S1 and S2 Abdomen-bowel sounds active. PEG tube in place. No masses. No focal tenderness Extremities-chronic pitting edema both lower extremities below the knees Neuro-cranial nerves II through XII intact, motor and sensory function within normal limits, strength symmetrical with generalized weakness , no focal deficits Psych-depressed affect Results & Data Results & Data ([facility]) Vital Signs (Past 12 Hours) Vital Signs Temp Pulse Pulse Resp BP BP Pulse Ox 02/02/22 11:33 36.8 C 71 18 121/55 L 96 02/02/22 08:42 36.3 C L 89 18 115/61 96 02/02/22 08:00 76 02/02/22 04:39 36.7 C 81 20 112/50 L 97 Laboratory Results 02/02/22 07:41 02/02/22 07:41 PG Care Time/CCT Total # of Minutes Spent Total Time Spent with Patient: Total time spent is greater than 50% in coordination of care (as documented) at patient's floor/unit and/or counseling patient: Coding Level of Care Code 79387 Subseq Hosp Care Lvl 3 Diagnoses Shortness of breath R06.02 Anemia D64.9 Anemia type: unspecified type CHF (congestive heart failure) I50.9 Heart failure chronicity: unspecified Heart failure type: unspecified Effusion, left knee M25.462 Chronic pseudo-obstruction of small intestine K59.89 Cachexia R64 Anxiety F41.9 Malnutrition E43 Malnutrition type: protein-calorie malnutrition Protein-calorie malnutrition severity: severe (1) Anemia Anemia type: unspecified type Qualified Code(s): D64.9 - Anemia, unspecified (2) CHF (congestive heart failure) Heart failure chronicity: unspecified Heart failure type: unspecified Qual ified Code(s): I50.9 - Heart failure, unspecified (3) Malnutrition Malnutrition type: protein-calorie malnutrition Protein-calorie malnutrition severity: severe Qualified Code(s): E43 - Unspecified severe protein-calorie malnutrition
--- NOTE | 2022-02-02 14:40 | Orthopedic Consultation ---
Date of Service February 02, 2022 Assessment & Plan (1) Left knee pain: She was seen and examined by Dr. Lowery today. She likely has some mild knee arthritis. We offered her an intraarticular knee injection and she wants to proceed with that. We will order the medicine today and plan to see her tomorrow for the knee injection. History of Present Illness Reason for Consultation: . Requesting Physician: . Attending Physician: Nicho Navarro MD .Caroline is a 57 year old patient who is now approximately 3 months s/p left hip hemiarthroplasty for a fracture, now c/o left knee pain. She denies any injury to her knee. She has pain mostly with weight bearing or walking. She denies hip pain. She did have an xray and ultrasound on 12/29/21. Xray was negative for fracture and the ultrasound showed a allen's cyst. Allergies Allergy/AdvReac Type Severity Reaction Status Date / Time ibuprofen Allergy Intermediate RINGING IN Verified 02/01/22 19:31 EARS,PARTIAL LOSS HEARING ketorolac Allergy Intermediate ROARING Verified 02/01/22 19:31 SOUND IN EARS NSAIDS (Non-Steroidal Allergy Intermediate RINGING IN Verified 02/01/22 19:31 Anti-Inflamma EARS zoledronic acid Allergy Intermediate FLU LIKE Verified 02/01/22 19:31 SYMPTOMS SEVERE HEADACHE vancomycin AdvReac Severe ZACHERY Verified 02/01/22 19:31 SYNDROME alprazolam AdvReac Intermediate LOSS OF Verified 02/01/22 19:31 HEARING aspirin AdvReac Intermediate RINGING IN Verified 02/01/22 19:31 EARS,PARTIAL HEARING LOSS promethazine AdvReac Mild RESTLESS Verified 02/01/22 19:31 LEGS Home Medications Medication Instructions Recorded Confirmed Type buprenorphine HCl 8 mg sublingual 8 mg SUBLINGUAL TID 11/01/20 02/01/22 History tablet cyclobenzaprine 5 mg tablet 5 mg PO DAILY PRN #20 tab 01/04/22 02/01/22 Rx diclofenac sodium 1 % topical gel 4 g TOPICAL QID #300 g 01/04/22 02/01/22 Rx Past Med/Surg History Medical History Anxiety Chronic pancreatitis Esophageal reflux Fatty liver Secondary to chronic TPN use Gastrointestinal tube present Gastrostomy tube in place Hearing deficit Hypersplenism Infected venous access port Iron deficiency anemia IRON INFUSIONS IN PAST Left ankle sprain Lumbar spinal stenosis Malnutrition Neutropenia On total parenteral nutrition (TPN) 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 Osteoporosis Overdose Peripheral neuropathy Radiation enterocolitis Severe protein-energy malnutrition Short bowel syndrome Subclinical hypothyroidism Thoracic compression fracture Urinary incontinence Surgical History History of cholecystectomy History of colonoscopy History of esophagogastroduodenoscopy (EGD) History of kyphoplasty (~2018) History of removal of tunneled central venous catheter (CVC) with port (11/01/21) Removal IV Central Catheter(Not Applicable) - Madhav Harris, DO 11/01/21 History of spinal surgery THORACIC AND LUMBAR AREA TUMOR REMOVED 1991 + 1992 - RADIATION 5 WEEKS History of surgery PEG TUBE INSERTION (NOTHING RUNS THROUGH PEG TUBE/USED ONLY FOR RELEASING FOOD PRODUCTS D/T SMALL BOWEL OBSTRUCTION) "PT EATS FOR COMFORT" History of total left hip arthroplasty Port-A-Cath in place BRUNER Status post insertion of percutaneous endoscopic gastrostomy (PEG) tube Family History Mother Diabetes Hypertension Father Family hx of colon cancer Bladder cancer Sister Alcohol abuse Deep vein thrombosis Hypertension Brother Hypertension Grandmother Hypertension Aunt Hypertension Other Cancer Social History Smoking Status: Former smoker Tobacco Type: Cigarettes Age Started Using Tobacco: 12; Age Quit Using Tobacco: 21; Second Hand Exposure: No; Hx Alcohol Use: No Hx Substance Use: No Preferred Language: Sinhala Communication Ability: Effective Visual Impairment: No Limitations Supervisor [employer] Required: No Beliefs That Will Affect Care: None marital status: Current Living Situation: Spouse current occupational status: disabled Feels Safe at Home: Yes Safety Concerns: Feels Safe At This Time caffeine: Yes Dental Care, Regularly: Yes Physical Activity Frequency: Does not Exercise Seatbelt Use: always Sunscreen Use: No Assistive Devices: Cane, Walker and Wheelchair Review of Systems All systems reviewed & are unremarkable except as noted in HPI & below. Physical Exam .Left leg: hip incision healed appropriately. No signs of infection. No knee effusion. Some pain with range of motion. She does have a flexion contracture of the knee. No redness or warmth. Results & Data Results & Data Laboratory Results . Diagnostic Findings . xray of the left knee on 12/29/21 were reviewed and show no fractures. She has diminished bone density. PG Care Time/CCT Total # of Minutes Spent Total Time Spent with Patient: Total time spent is greater than 50% in coordination of care (as documented) at patient's floor/unit and/or counseling patient: Coding Level of Care Code 09217 Inpt Consult Level 3 Diagnoses Left knee pain M25.562
[2022-02-02] MEDS ORDERED: AMINO ACID 8% IV SCH (20:00)
[2022-02-02] MEDS ORDERED: DEXTROSE 10% 1,000 ML IV PRN (20:00)
[2022-02-02] MEDS ORDERED: [UNRECOGNIZED DRUG - OTHER] IV SCH (20:00)
[2022-02-02] MEDS ORDERED: CENTRAL TPN IV SCH (20:00)
[2022-02-02] MEDS ORDERED: TPN RATE CHANGE SCH (21:00)
--- NOTE | 2022-02-02 22:33 | Billing Data ---
Date of Service February 02, 2022 Coding Level of Care Code 70173 Initial Inpt Care Lvl 3
[2022-02-03] MEDS ORDERED: HEPARIN 100 UNIT/ML 5ML FLUSH FLUSH PRN (03:09)
[2022-02-03] MEDS ORDERED: BETAMETH SOD PHOS/ACETATE IA 6 MG/ML IA SCH (06:00)
[2022-02-03] MEDS ORDERED: BUPIVACAINE 0.5 % 5 MG/1 ML MPF 30ML VIAL IA SCH (06:00)
[2022-02-03] MEDS: LORazepam 0.5 MG TAB PO PRN ×2 (06:08→10:08)
[2022-02-03 06:10] LABS: Eosinophils # (auto) 0.01 K/uL (0-0.5); Eosinophils % (auto) 0.3 %; Hemoglobin 7.4 g/dL (12.0-16.0); Lymphocytes # (auto) 0.29 K/uL (1.2-3.4); Mean Corpuscular Hemoglobin 26.3 pg (25-34); Mean Corpuscular Hgb Conc 30.8 g/dL (32-36); Mean Corpuscular Volume 85.4 fL (80-100); Mean Platelet Volume 11.7 fL (7.4-10.4); Monocytes # (auto) 0.26 K/uL (0.11-0.59); Monocytes % (auto) 7.2 %; Neutrophils # (auto) 3.05 K/uL (1.4-6.5); Neutrophils % (auto) 84.5 %; Platelet Count 161 K/uL (130-400); RDW Coefficient of Variation 16.1 % (11.5-14.5); RDW Standard Deviation 51.1 fL (36.4-46.3); Red Blood Count 2.81 M/uL (4.2-5.4); White Blood Count 3.61 K/uL (4.8-10.8)
[2022-02-03 06:30] LABS: RBC Morphology Unremarkable
[2022-02-03 06:32] LABS: Albumin Globulin Ratio 0.7 (0.9-2); Albumin Level 2.5 gm/dl (3.4-5.0); BUN Creatinine Ratio 54.5 (10-20); Bilirubin,Total 3.3 mg/dl (0.2-1.0); Calcium 7.9 mg/dl (8.5-10.1); Creatinine Clr Calc Pharmacy 33.4 ml/min; Est GFR (African American) 83.9 ml/min; Est GFR (Non-African American) 72.4 ml/min; Globulin 3.8 gm/dl (2.5-4.0); Magnesium 1.9 mg/dl (1.7-2.4); Phosphorus 3.3 mg/dl (2.5-4.9); Potassium 3.7 mmol/L (3.5-5.1); Total Protein 6.3 gm/dl (6.0-8.3)
[2022-02-03] MEDS ORDERED: TPN RATE CHANGE SCH (07:00)
[2022-02-03] MEDS: buprenorphine HCL 8 MG SUBL SL SCH ×3 (07:55→20:47)
[2022-02-03] MEDS: DICLOFENAC SOD 1% GEL 100 GM TUBE EXT SCH ×4 (07:56→20:47)
[2022-02-03] MEDS: HEPARIN SOD 5,000 UNIT/0.5 ML VIAL SQ SCH ×2 (07:56→20:49)
[2022-02-03] MEDS: POTASSIUM CHLORIDE PWD 20 MEQ PACK GT SCH ×2 (07:57→20:50)
[2022-02-03] MEDS: METOCLOPRAMIDE HCL INJ 5 MG/ML 2 ML VIAL IV SCH ×3 (10:08→20:49)
[2022-02-03] MEDS: SODIUM CHLORIDE 0.9% 1000ML 1,000 ML IV SCH (10:08)
[2022-02-03] MEDS: FUROSEMIDE 40 MG/4 ML VIAL IV SCH ×2 (10:09→23:06)
--- NOTE | 2022-02-03 13:48 | Hospitalist Progress Note ---
Date of Service February 03, 2022 Assessment & Plan (1) Shortness of breath: Plan: Probably due to gastric distention from gastroparesis. Improved after PEG tube was placed to intermittent low wall suction. (2) Anemia: Plan: Chronic. Hemoglobin 7.4 today, February 03. We will transfuse if hemoglobin drops below 7.0 (3) CHF (congestive heart failure): Plan: Chronic diastolic CHF. She does not appear to have exacerbation on admission. (4) Effusion, left knee: Plan: Orthopedic consultation appreciated. She will undergo intra-articular left knee injection later today, February 03 (5) Jaundice: Plan: Mild. Elevated liver enzymes appear to be chronic (6) Pitting edema: Plan: Due to low protein levels from malnourishment and chronic anemia (7) Hepatic steatosis: Plan: Will follow (8) Radiation enterocolitis: Plan: Will follow (9) Chronic pseudo-obstruction of small intestine: Plan: Parenteral metoclopramide started. May need to continue oral metoclopramide at discharge (10) Abnormal LFTs: Plan: Chronic. Will follow (11) Cachexia: Plan: Nutritional needs are being met by TPN while hospitalized (12) On total parenteral nutrition (TPN): Plan: Continue (13) Anxiety: Plan: Ativan as needed (14) Malnutrition: Plan: Chronic. Continue TPN (15) Gastrointestinal tube present: Plan: PEG tube present Plan: Dispo: Eventual discharge back to home. Admission and Anticipated Discharge Date Admission Date: February 01, 2022 Subjective Alert and oriented. No acute distress. She is now receiving TPN. Parenteral Reglan ordered for motility which hopefully will treat apparent gastroparesis and GI dysfunction without obstruction. Review of Systems Review of Systems: Constitutional-no fever or chills ENT-no blurred vision, no double vision, no epistaxis, no sore throat Respiratory-no cough, no wheezing, no shortness of breath Cardiac-no palpitations, no chest pain, no syncope GI- chronic nausea. No vomiting, diarrhea, melena, hematochezia -no urinary retention, no urinary incontinence, no dysuria, no hematuria Musculoskeletal-no joint pain, no muscle tenderness Skin-no bruising, no rashes, no pruritus Neuro-no isolated weakness, no paresthesia. She does have generalized weakness Psych-no depression. She does have anxiety Physical Exam Physical Exam: General-alert and oriented x3, no fevers, no chills. Cachectic appearing HEENT-head atraumatic and normocephalic, TMs intact bilaterally, pupils equal and reactive to light, extraocular muscles intact Neck-no lymphadenopathy or thyromegaly, trachea midline Chest-clear to auscultation percussion. No rales wheezing or rhonchi Cardiac-regular rate and rhythm, normal S1 and S2, no murmurs Abdomen-PEG tube in place. Draining to intermittent low wall suction. Bowel sounds are active. No distention. Extremities-no cyanosis, clubbing, or edema Neuro-cranial nerves II through XII intact, motor and sensory function within normal limits, strength symmetrical but generalized weakness, no focal deficits Psych-depressed affect Results & Data Results & Data ([facility]) Vital Signs (Past 12 Hours) Vital Signs Temp Pulse Pulse Resp BP Pulse Ox 02/03/22 11:00 37.1 C 80 20 108/67 100 02/03/22 03:34 36.8 C 71 16 100/52 L 97 Laboratory Results 02/03/22 05:35 02/03/22 05:35 PG Care Time/CCT Total # of Minutes Spent Total Time Spent with Patient: Total time spent is greater than 50% in coordination of care (as documented) at patient's floor/unit and/or counseling patient: Coding Level of Care Code 24392 Subseq Hosp Care Lvl 3 Diagnoses Shortness of breath R06.02 Anemia D64.9 Anemia type: unspecified type CHF (congestive heart failure) I50.9 Heart failure chronicity: unspecified Heart failure type: unspecified Effusion, left knee M25.462 Jaundice R17 Pitting edema R60.9 Hepatic steatosis K76.0 Radiation enterocolitis K52.0 Chronic pseudo-obstruction of small intestine K59.89 Abnormal LFTs R79.89 Cachexia R64 On total parenteral nutrition (TPN) Z78.9 Anxiety F41.9 Malnutrition E43 Malnutrition type: protein-calorie malnutrition Protein-calorie malnutrition severity: severe Gastrointestinal tube present Z93.1 (1) Anemia Anemia type: unspecified type Qualified Code(s): D64.9 - Anemia, unspecified (2) CHF (congestive heart failure) Heart failure chronicity: unspecified Heart failure type: unspecified Qualified Code(s): I50.9 - Heart failure, unspecified (3) Malnutrition Malnutrition type: protein-calorie malnutrition Protein-calorie malnutrition severity: severe Qualified Code(s): E43 - Unspecified severe protein-calorie malnutrition
--- NOTE | 2022-02-03 14:42 | Pharmacy Report ---
PHA: Parenteral Nutrition Con - Date of Service February 03, 2022 - Scope Pharmacy was consulted on 02/02 to manage parenteral nutrition orders for this patient. - Subjective The patient is currently on day 2 of central parenteral nutrition - Objective Height: 4 ft 11 in Weight: 30.3 kg Diet: NPO Intake & Output (24hrs):: Intake & Output 02/01/22 02/02/22 02/03/22 02/04/22 06:59 06:59 06:59 06:59 Intake Total 200 / 200 266.123 / 266.123 984.877 / 984.877 Output Total 1050 / 1050 4250 / 4250 2500 / 2500 Balance -850 / -850 -3983.877 / -3983.877 -1515.123 / -1515.123 Weight 39.3 kg 30.4 kg 30.3 kg Laboratory Data (Last 24 Hr):: 02/03/22 05:35 Sodium 140 Potassium 3.7 Chloride 102 Carbon Dioxide 31 BUN 48 H Creatinine 0.88 Glucose 154 H Calcium 7.9 L Phosphorus 3.3 Magnesium 1.9 Total Bilirubin 3.3 H AST 117 H ALT 74 H Alkaline Phosphatase 443 H Albumin 2.5 L Triglycerides 58 Nutrition Assessment:: Please refer to the Notes section of the EMR for the 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 - Plan Discussed with provider and plan to trial lipids back into TPN today. TG normal, LFTs trending down/stable. Patient's weight changing significantly from yesterday to today. Had nurse reweigh patient to verify weight and confirmed weight is ~30 kg. Will make adjustments for TPN based upon lower weight then previously calculated. For day 2 of PN administration, the following will be ordered: Macronutrients Amino acids 58 grams/day Dextrose 101 grams/day Lipids 20 grams/day Micronutrients Sodium chloride 80 mEq Potassium chloride 50 mEq Magnesium sulfate 4.06 mEq Potassium phosphate 15 mM Multivitamins 10 mL Trace Elements 1 mL Additional additives: pepcid Total [id number] mL to be infused over 12 hrs will provide 773 kcal/day Labs, as indicated, will be ordered per protocol Pharmacy will continue to follow and adjust parenteral nutrition orders on a daily basis. Thank you for allowing us to participate in the care of this patient.
--- NOTE | 2022-02-03 15:17 | Orthopedic Progress Note ---
Date of Service February 03, 2022 Assessment & Plan (1) Left knee pain: She was seen and examined by Dr. Lowery today. She wants to proceed with left knee intraarticular injection today. Procedure: Left knee was sterilely prepped with alcohol. Using aseptic technique 2ml of celestone and 8ml of marcaine was injected into the knee. She tolerated the procedure well. No complications. Subjective . 57 year old patient with left knee pain, requesting an injection today. No new orthopedic complaints. Review of Systems All systems reviewed & are unremarkable except as noted in HPI & below. Physical Exam . left knee: no significant effusion. No redness or warmth. Skin intact. Results & Data Results & Data Laboratory Results . Diagnostic Findings . PG Care Time/CCT Total # of Minutes Spent Total Time Spent with Patient: Total time spent is greater than 50% in coordination of care (as documented) at patient's floor/unit and/or counseling patient: Coding Level of Care Code 13346 Subseq Hosp Care Lvl 2 (25 - SIGNIFICANT, SEPARATELY IDENTIFIABLE ) Diagnoses Left knee pain M25.562
[2022-02-03] MEDS ORDERED: CLINOLIPID 20% IV FAT EMULSION 100 ML IV SCH ×2 (20:00)
[2022-02-03] MEDS ORDERED: [UNRECOGNIZED DRUG - OTHER] IV SCH (20:00)
[2022-02-03] MEDS ORDERED: AMINO ACID 8% IV SCH (20:00)
[2022-02-03] MEDS ORDERED: [UNRECOGNIZED DRUG - REMARK] ONE (20:00)
[2022-02-03] MEDS ORDERED: CENTRAL TPN IV SCH (20:00)
[2022-02-03] MEDS: TPN RATE CHANGE SCH (23:03)
[2022-02-04] MEDS: METOCLOPRAMIDE HCL INJ 5 MG/ML 2 ML VIAL IV SCH ×4 (03:40→21:00)
[2022-02-04] MEDS: TPN RATE CHANGE SCH ×2 (07:38→22:00)
[2022-02-04 08:15] LABS: Hematocrit (blood only) 25.3 % (37-47); Hemoglobin 7.9 g/dL (12.0-16.0); Lymphocytes # (auto) 0.19 K/uL (1.2-3.4); Lymphocytes % (auto) 4.7 %; Mean Corpuscular Hemoglobin 26.9 pg (25-34); Mean Corpuscular Hgb Conc 31.2 g/dL (32-36); Mean Corpuscular Volume 86.1 fL (80-100); Mean Platelet Volume 11.8 fL (7.4-10.4); Monocytes # (auto) 0.11 K/uL (0.11-0.59); Monocytes % (auto) 2.7 %; Neutrophils # (auto) 3.73 K/uL (1.4-6.5); Neutrophils % (auto) 92.6 %; Platelet Count 152 K/uL (130-400); RDW Coefficient of Variation 15.9 % (11.5-14.5); RDW Standard Deviation 50.2 fL (36.4-46.3); Red Blood Count 2.94 M/uL (4.2-5.4); White Blood Count 4.03 K/uL (4.8-10.8)
[2022-02-04 08:34] LABS: Hypochromasia Present
[2022-02-04 08:39] LABS: Albumin Globulin Ratio 0.6 (0.9-2); Albumin Level 2.6 gm/dl (3.4-5.0); BUN Creatinine Ratio 67.1 (10-20); Calcium 8.2 mg/dl (8.5-10.1); Creatinine Clr Calc Pharmacy 43.9 ml/min; Est GFR (African American) 95.6 ml/min; Est GFR (Non-African American) 82.5 ml/min; Globulin 4.1 gm/dl (2.5-4.0); Phosphorus 3.4 mg/dl (2.5-4.9); Potassium 3.8 mmol/L (3.5-5.1); Total Protein 6.7 gm/dl (6.0-8.3)
[2022-02-04] MEDS: LORazepam 0.5 MG TAB PO PRN (08:54)
[2022-02-04] MEDS: buprenorphine HCL 8 MG SUBL SL SCH ×3 (08:54→20:49)
[2022-02-04] MEDS: DICLOFENAC SOD 1% GEL 100 GM TUBE EXT SCH ×4 (08:54→20:51)
[2022-02-04] MEDS: METHYLNALTREXONE BROMIDE 12 MG/0.6 ML VIAL SQ SCH (08:55)
[2022-02-04] MEDS: HEPARIN SOD 5,000 UNIT/0.5 ML VIAL SQ SCH ×2 (08:56→20:51)
[2022-02-04] MEDS: POTASSIUM CHLORIDE PWD 20 MEQ PACK GT SCH ×2 (08:56→20:53)
[2022-02-04] MEDS: FUROSEMIDE 40 MG/4 ML VIAL IV SCH (10:17)
--- NOTE | 2022-02-04 11:54 | Hospitalist Progress Note ---
Date of Service February 04, 2022 Assessment & Plan (1) Shortness of breath: Plan: Probably due to gastric distention from gastroparesis. Resolved after PEG tube was placed to intermittent low wall suction. (2) Anemia: Plan: Chronic. Hemoglobin 7.9 today, February 04. Transfuse if hemoglobin drops below 7.0 (3) CHF (congestive heart failure): Plan: Chronic diastolic CHF. She does not appear to have exacerbation on admission. (4) Effusion, left knee: Plan: Orthopedic consultation appreciated. Underwent intra-articular left knee injection on February 03 (5) Jaundice: Plan: Mild. Elevated liver enzymes appear to be chronic (6) Pitting edema: Plan: Due to low protein levels from malnourishment and chronic anemia (7) Hepatic steatosis: Plan: Will follow (8) Radiation enterocolitis: Plan: Will follow (9) Chronic pseudo-obstruction of small intestine: Plan: Parenteral metoclopramide seems to have helped. Would consider continuing Reglan 5 mg 3 times a day or 4 times a day at discharge. (10) Abnormal LFTs: Plan: Chronic. Will follow (11) Cachexia: Plan: Nutritional needs are being met by TPN while hospitalized (12) On total parenteral nutrition (TPN): Plan: Continue (13) Anxiety: Plan: Ativan as needed (14) Malnutrition: Plan: Chronic. Continue TPN (15) Gastrointestinal tube present: Plan: PEG tube present Plan: Dispo: Eventual discharge back to home. Admission and Anticipated Discharge Date Admission Date: February 01, 2022 Subjective She looks and feels better. Parenteral Reglan has helped. I believe she should continue Reglan 5 mg 3-4 times a day at discharge. She is receiving TPN and when not getting the TPN she is on IV fluids at 75 cc/h. OT and PT ordered. Left knee was injected by orthopedics on February 03. Review of Systems Review of Systems: Constitutional-no fever or chills ENT-no blurred vision, no double vision, no epistaxis, no sore throat Respiratory-no cough, no wheezing, no shortness of breath Cardiac-no palpitations, no chest pain, no syncope GI-no nausea, vomiting, diarrhea, melena, hematochezia -no urinary retention, no urinary incontinence, no dysuria, no hematuria Musculoskeletal-no joint pain, no muscle tenderness Skin-no bruising, no rashes, no pruritus Neuro-no isolated weakness, no paresthesia, no weakness Psych-no depression, no anxiety Physical Exam Physical Exam: General-alert and oriented x3, no fevers, no chills. Appears chronically ill and cachectic HEENT-head atraumatic and normocephalic, TMs intact bilaterally, pupils equal and reactive to light, extraocular muscles intact Neck-no lymphadenopathy or thyromegaly, trachea midline Chest-clear to auscultation percussion. No rales wheezing or rhonchi Cardiac-regular rate and rhythm, normal S1 and S2, no murmurs Abdomen-normal bowel sounds, nontender, no hepatosplenomegaly. PEG tube in place Extremities-no cyanosis, clubbing, or edema Neuro-cranial nerves II through XII intact, motor and sensory function within normal limits, strength symmetrical , no focal deficits Psych-normal affect, normal mood Results & Data Results & Data ([facility]) Vital Signs (Past 12 Hours) Vital Signs Temp Pulse Pulse Pulse Resp BP Pulse Ox 02/04/22 11:14 36.5 C 70 17 129/71 98 02/04/22 10:56 65 02/04/22 07:58 36.8 C 77 17 132/74 97 02/04/22 03:56 36.7 C 74 18 115/64 96 02/04/22 00:00 73 Laboratory Results 02/04/22 07:45 02/04/22 07:45 PG Care Time/CCT Total # of Minutes Spent Total Time Spent with Patient: Total time spent is greater than 50% in coordination of care (as documented) at patient's floor/unit and/or counseling patient: Coding Level of Care Code 35143 Subseq Hosp Care Lvl 3 Diagnoses Shortness of breath R06.02 Anemia D64.9 Anemia type: unspecified type CHF (congestive heart failure) I50.9 Heart failure chronicity: unspecified Heart failure type: unspecified Effusion, left knee M25.462 Jaundice R17 Pitting edema R60.9 Hepatic steatosis K76.0 Radiation enterocolitis K52.0 Chronic pseudo-obstruction of small intestine K59.89 Abnormal LFTs R79.89 Cachexia R64 On total parenteral nutrition (TPN) Z78.9 Anxiety F41.9 Malnutrition E43 Malnutrition type: protein-calorie malnutrition Protein-calorie malnutrition severity: severe Gastrointestinal tube present Z93.1 (1) Anemia Anemia type: unspecified type Qualified Code(s): D64.9 - Anemia, unspecified (2) CHF (congestive heart failure) Heart failure chronicity: unspecified Heart failure type: unspecified Qualified Code(s): I50.9 - Heart failure, unspecified (3) Malnutrition Malnutrition type: protein-calorie malnutrition Protein-calorie malnutrition severity: severe Qualified Code(s): E43 - Unspecified severe protein-calorie malnutrition
[2022-02-04] MEDS: INSULIN ASPART PER UNIT SC SCH ×2 (12:48→18:29)
[2022-02-04] MEDS ORDERED: CENTRAL TPN IV SCH ×2 (20:00)
[2022-02-04] MEDS ORDERED: AMINO ACID 8% IV SCH ×2 (20:00)
[2022-02-04] MEDS ORDERED: CLINOLIPID 20% IV FAT EMULSION 100 ML IV SCH (20:00)
[2022-02-04] MEDS ORDERED: [UNRECOGNIZED DRUG - OTHER] IV SCH (20:00)
[2022-02-04] MEDS ORDERED: [UNRECOGNIZED DRUG - OTHER] IV SCH (20:00)
[2022-02-05] MEDS: FUROSEMIDE 40 MG/4 ML VIAL IV SCH ×3 (00:41→23:34)
[2022-02-05] MEDS: INSULIN ASPART PER UNIT SC SCH ×4 (00:59→18:17)
[2022-02-05] MEDS: METOCLOPRAMIDE HCL INJ 5 MG/ML 2 ML VIAL IV SCH ×4 (04:00→21:05)
[2022-02-05] MEDS: TPN RATE CHANGE SCH (08:55)
[2022-02-05] MEDS: HEPARIN SOD 5,000 UNIT/0.5 ML VIAL SQ SCH ×2 (09:45→20:53)
[2022-02-05] MEDS: buprenorphine HCL 8 MG SUBL SL SCH ×3 (09:45→21:04)
[2022-02-05] MEDS: POTASSIUM CHLORIDE PWD 20 MEQ PACK GT SCH ×2 (09:46→20:52)
[2022-02-05] MEDS: DICLOFENAC SOD 1% GEL 100 GM TUBE EXT SCH ×4 (09:46→20:54)
[2022-02-05 09:51] LABS: Hematocrit (blood only) 30.8 % (37-47); Hemoglobin 9.5 g/dL (12.0-16.0); Immature Granulocytes # (auto) 0.03 K/uL (0.00-0.02); Immature Granulocytes % (auto) 0.2 %; Lymphocytes % (auto) 4.4 %; Mean Corpuscular Hemoglobin 26.5 pg (25-34); Mean Corpuscular Hgb Conc 30.8 g/dL (32-36); Mean Corpuscular Volume 85.8 fL (80-100); Mean Platelet Volume 11.1 fL (7.4-10.4); Monocytes # (auto) 0.65 K/uL (0.11-0.59); Monocytes % (auto) 4.7 %; Neutrophils # (auto) 12.42 K/uL (1.4-6.5); Neutrophils % (auto) 90.7 %; Platelet Count 220 K/uL (130-400); RDW Coefficient of Variation 16.1 % (11.5-14.5); RDW Standard Deviation 50.7 fL (36.4-46.3); Red Blood Count 3.59 M/uL (4.2-5.4); Reticulocyte % 2.4 % (0.5-2.0); Reticulocytes # 0.09 10^6/uL (0.02-0.10)
[2022-02-05] MEDS: SODIUM CHLORIDE 0.9% 1000ML 1,000 ML IV SCH (10:03)
[2022-02-05 10:12] LABS: Albumin Globulin Ratio 0.7 (0.9-2); Albumin Level 3.1 gm/dl (3.4-5.0); Bilirubin,Total 3.4 mg/dl (0.2-1.0); Calcium 8.8 mg/dl (8.5-10.1); Creatinine Clr Calc Pharmacy 47.3 ml/min; Est GFR (African American) 110.7 ml/min; Est GFR (Non-African American) 95.5 ml/min; Globulin 4.6 gm/dl (2.5-4.0); Potassium 3.8 mmol/L (3.5-5.1); Total Protein 7.7 gm/dl (6.0-8.3)
[2022-02-05 10:15] LABS: Magnesium 2.2 mg/dl (1.7-2.4); Phosphorus 2.8 mg/dl (2.5-4.9)
--- NOTE | 2022-02-05 13:55 | Hospitalist Progress Note ---
Date of Service February 05, 2022 Assessment & Plan (1) Shortness of breath: Plan: Leading to hospital admission. Related to gastroparesis vs. chronic anemia vs. fluid retention vs. anxiety/panic attacks. CXR showed mild pulm vascular congestion. CTA chest 02/01 neg for PE. Continue Lasix 40 mg IV q12hr. Reglan 10 mg IV q6hr for treatment of gastroparesis. Will benefit from PO Reglan at discharge. (2) Anemia: Plan: Chronic anemia, prior baseline Hgb ~9 to 10 gm/dL. Hgb decreased to 7 to 8 gm/dL during admission, likely related to dilution. Recent iron panel was WNL on 01/22/22; B12 in WNL. Ordered haptoglobin to evaluate for hemolysis, is pending. LDH level mildly elevated but improved compared to prior levels. Continue to monitor Hgb, recommend transfusion for Hgb <7.5 gm/dL. (3) CHF (congestive heart failure): Plan: Chronic diastolic CHF. ECHO 11/02 with preserved EF. Monitor volume status closely - weight has been stable. Lasix 40 mg IV q12hr. (4) Effusion, left knee: Plan: Orthopedic consultation appreciated. Underwent intra-articular left knee injection on February 03, 2022. She does have a leukocytosis on labs - likely related to steroid injection and less likely infectious etiology. (5) Jaundice: Plan: AST, ALT and Alk phos trending up overall. They are elevated at baseline but progressively increasing. CT AP 02/01 neg for liver lesions, hepatomegaly. Recommend holding TPN per pharmacy and nutritrion recs for at least 24 hours and following LFTs closely. Will need to obtain repeat liver imaging if no improvement. (6) Pitting edema: Plan: Due to severe protein calorie malnutrition; edema now improved. (7) Hepatic steatosis: Plan: Chronic. 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 Also receives TPN infusions - currently on hold as noted above. (10) Abnormal LFTs: Plan: As noted above, holding TPN and following closely. (11) Cachexia: Plan: Severe, receiving TPN (currently being held). Current weight of 34.2 kg. (12) On total parenteral nutrition (TPN): Plan: Following with nutrition, holding over the next 24 to 48 hours due to elevated LFTs. (13) Anxiety: Plan: Recommend holding Ativan (see case management noted regarding family concern with medication). Starting Buspar 10 mg TID. (14) Malnutrition: Plan: Chronic. (15) Gastrointestinal tube present: Plan: PEG tube present. Plan: DVT ppx: Heparin 5,000 units BID. PT/OT recommended resuming home health at discharge. Will need to resume TPN (if LFTs are improved). Discharge pending improvement in LFTs. Admission and Anticipated Discharge Date Admission Date: February 01, 2022 Supervising Physician Co-Signing Physician Notes Attending Attestation - Chart reviewed in detail, care plan d/w PA Micheline Abernathy. I agree w/ the jeffers components of her documentation. Roman Douglas MD Subjective Mrs. Lopez remains very weak overall. LFTs climbing, will need to hold TPN due to increasing levels. She reports being very anxious following discontinuation of Ativan on 02/04/22. She has bed sores on her back, due to lack of mobility. Review of Systems Review of Systems: Constitutional: Fatigue and weakness; Negative for weight loss, night sweats, or fever Cardiovascular: Negative for anginal type chest pain, palpitations, dizziness, diaphoresis Respiratory: Negative for new shortness of breath,hemoptysis, or purulent cough Gastrointestinal: Negative for diarrhea, hematemesis, melena, nausea, vomiting, or dyspepsia Integumentary (skin): +Bed sores Genitourinary: Negative for urinary frequency, hematuria, or dysuria Physical Exam Physical Exam: Constitutional: Extremely cachectic appearing female, mild distress. Respiratory: Lung sounds were generally clear bilaterally. Cardiovascular: Heart was RRR without significant murmur, gallops or rubs. Musculoskeletal System: The musculoskeletal system seemed concordant with age. Skin: Ulcerations noted on back, specifically over vertebrae of thoracic spine. Extremities: Left knee edema noted. Results & Data Results & Data ([facility]) Vital Signs (Past 12 Hours) Vital Signs Temp Pulse Pulse Resp BP Pulse Ox 02/05/22 12:50 36.7 C 87 16 149/84 H 98 02/05/22 07:13 90 02/05/22 03:00 36.5 C 78 20 129/69 96 Laboratory Results 02/05/22 02/05/22 02/05/22 Range/Units 12:04 09:29 09:29 WBC (4.8-10.8) K/uL RBC (4.2-5.4) M/uL Hgb (12.0-16.0) g/dL Hct (37-47) % MCV (80-100) fL MCH (25-34) pg MCHC (32-36) g/dL RDW Std Deviation (36.4-46.3) fL RDW Coeff of Esau (11.5-14.5) % Plt Count (130-400) K/uL MPV (7.4-10.4) fL Immature Gran % (Auto) % Neut % (Auto) % Lymph % (Auto) % Meeker % (Auto) % Eos % (Auto) % Baso % (Auto) % Reticulocyte % (Auto) (0.5-2.0) % Neut # (Auto) (1.4-6.5) K/uL Lymph # (Auto) (1.2-3.4) K/uL Meeker # (Auto) (0.11-0.59) K/uL Eos # (Auto) (0-0.5) K/uL Baso # (Auto) (0-0.2) K/uL Reticulocyte # (0.02-0.10) 10^6/uL Immature Gran # (Auto) (0.00-0.02) K/uL Haptoglobin Pending Sodium (136-145) mmol/L Potassium (3.5-5.1) mmol/L Chloride (98-107) mmol/L Carbon Dioxide (21-32) mmol/L Anion Gap (3-11) BUN (6-23) mg/dl Creatinine (0.6-1.2) mg/dl Est Cr Clr Drug Dosing ml/min Est GFR ( Amer) ml/min Est GFR (Non-Af Amer) ml/min BUN/Creatinine Ratio (10-20) Glucose (70-99(Fasting)) mg/dl POC Glucose 101 H (70-99) mg/dl Calcium (8.5-10.1) mg/dl Phosphorus (2.5-4.9) mg/dl Magnesium (1.7-2.4) mg/dl Total Bilirubin (0.2-1.0) mg/dl AST (13-39) U/L ALT (7-52) U/L Alkaline Phosphatase (34-104) U/L Lactate Dehydrogenase 278 H (86-244) U/L Total Protein (6.0-8.3) gm/dl Albumin (3.4-5.0) gm/dl Globulin (2.5-4.0) gm/dl Albumin/Globulin Ratio (0.9-2) 02/05/22 02/05/22 02/05/22 Range/Units 09:29 09:29 09:29 WBC 13.70 H (4.8-10.8) K/uL RBC 3.59 L (4.2-5.4) M/uL Hgb 9.5 L (12.0-16.0) g/dL Hct 30.8 L (37-47) % MCV 85.8 (80-100) fL MCH 26.5 (25-34) pg MCHC 30.8 L (32-36) g/dL RDW Std Deviation 50.7 H (36.4-46.3) fL RDW Coeff of Esau 16.1 H (11.5-14.5) % Plt Count 220 (130-400) K/uL MPV 11.1 H (7.4-10.4) fL Immature Gran % (Auto) 0.2 % Neut % (Auto) 90.7 % Lymph % (Auto) 4.4 % Meeker % (Auto) 4.7 % Eos % (Auto) 0.0 % Baso % (Auto) 0.0 % Reticulocyte % (Auto) 2.4 H (0.5-2.0) % Neut # (Auto) 12.42 H (1.4-6.5) K/uL Lymph # (Auto) 0.60 L (1.2-3.4) K/uL Meeker # (Auto) 0.65 H (0.11-0.59) K/uL Eos # (Auto) 0.00 (0-0.5) K/uL Baso # (Auto) 0.00 (0-0.2) K/uL Reticulocyte # 0.09 (0.02-0.10) 10^6/uL Immature Gran # (Auto) 0.03 H (0.00-0.02) K/uL Haptoglobin Sodium 144 (136-145) mmol/L Potassium 3.8 (3.5-5.1) mmol/L Chloride 103 (98-107) mmol/L Carbon Dioxide 35 H (21-32) mmol/L Anion Gap 6 (3-11) BUN 63 H (6-23) mg/dl Creatinine 0.70 (0.6-1.2) mg/dl Est Cr Clr Drug Dosing 47.3 ml/min Est GFR ( Amer) 110.7 ml/min Est GFR (Non-Af Amer) 95.5 ml/min BUN/Creatinine Ratio 90.0 H (10-20) Glucose 144 H (70-99(Fasting)) mg/dl POC Glucose (70-99) mg/dl Calcium 8.8 (8.5-10.1) mg/dl Phosphorus 2.8 (2.5-4.9) mg/dl Magnesium 2.2 (1.7-2.4) mg/dl Total Bilirubin 3.4 H (0.2-1.0) mg/dl AST 195 H (13-39) U/L ALT 137 H (7-52) U/L Alkaline Phosphatase 528 H (34-104) U/L Lactate Dehydrogenase (86-244) U/L Total Protein 7.7 (6.0-8.3) gm/dl Albumin 3.1 L (3.4-5.0) gm/dl Globulin 4.6 H (2.5-4.0) gm/dl Albumin/Globulin Ratio 0.7 L (0.9-2) 02/05/22 02/05/22 02/04/22 Range/Units 06:05 00:53 18:16 WBC (4.8-10.8) K/uL RBC (4.2-5.4) M/uL Hgb (12.0-16.0) g/dL Hct (37-47) % MCV (80-100) fL MCH (25-34) pg MCHC (32-36) g/dL RDW Std Deviation (36.4-46.3) fL RDW Coeff of Esau (11.5-14.5) % Plt Count (130-400) K/uL MPV (7.4-10.4) fL Immature Gran % (Auto) % Neut % (Auto) % Lymph % (Auto) % Meeker % (Auto) % Eos % (Auto) % Baso % (Auto) % Reticulocyte % (Auto) (0.5-2.0) % Neut # (Auto) (1.4-6.5) K/uL Lymph # (Auto) (1.2-3.4) K/uL Meeker # (Auto) (0.11-0.59) K/uL Eos # (Auto) (0-0.5) K/uL Baso # (Auto) (0-0.2) K/uL Reticulocyte # (0.02-0.10) 10^6/uL Immature Gran # (Auto) (0.00-0.02) K/uL Haptoglobin Sodium (136-145) mmol/L Potassium (3.5-5.1) mmol/L Chloride (98-107) mmol/L Carbon Dioxide (21-32) mmol/L Anion Gap (3-11) BUN (6-23) mg/dl Creatinine (0.6-1.2) mg/dl Est Cr Clr Drug Dosing ml/min Est GFR ( Amer) ml/min Est GFR (Non-Af Amer) ml/min BUN/Creatinine Ratio (10-20) Glucose (70-99(Fasting)) mg/dl POC Glucose 193 H 192 H 121 H (70-99) mg/dl Calcium (8.5-10.1) mg/dl Phosphorus (2.5-4.9) mg/dl Magnesium (1.7-2.4) mg/dl Total Bilirubin (0.2-1.0) mg/dl AST (13-39) U/L ALT (7-52) U/L Alkaline Phosphatase (34-104) U/L Lactate Dehydrogenase (86-244) U/L Total Protein (6.0-8.3) gm/dl Albumin (3.4-5.0) gm/dl Globulin (2.5-4.0) gm/dl Albumin/Globulin Ratio (0.9-2) PG Care Time/CCT Total # of Minutes Spent Total Time Spent with Patient: Total time spent is greater than 50% in coordination of care (as documented) at patient's floor/unit and/or counseling patient: C[place] [address] Subseq Hosp Care Lvl 3 Patient Type Established Diagnoses Shortness of breath R06.02 Anemia D64.9 Anemia type: unspecified type CHF (congestive heart failure) I50.9 Heart failure chronicity: unspecified Heart failure type: unspecified Effusion, left knee M25.462 Jaundice R17 Pitting edema R60.9 Hepatic steatosis K76.0 Radiation enterocolitis K52.0 Chronic pseudo-obstruction of small intestine K59.89 Abnormal LFTs R79.89 Cachexia R64 On total parenteral nutrition (TPN) Z78.9 Anxiety F41.9 Malnutrition E43 Malnutrition type: protein-calorie malnutrition Protein-calorie malnutrition severity: severe Gastrointestinal tube present Z93.1 (1) CHF (congestive heart failure) Heart failure chronicity: unspecified Heart failure type: unspecified Qualified Code(s): I50.9 - Heart failure, unspecified (2) Anemia Anemia type: unspecified type Qualified Code(s): D64.9 - Anemia, unspecified (3) Malnutrition Malnutrition type: protein-calorie malnutrition Protein-calorie malnutrition severity: severe Qualified Code(s): E43 - Unspecified severe protein-calorie malnutrition
[2022-02-05] MEDS: busPIRone 5 MG TAB PO SCH ×2 (15:07→20:52)
[2022-02-05] MEDS ORDERED: MELATONIN 3 MG TAB PO PRN (15:14)
[2022-02-05] MEDS: oxyCODONE HCL IR 5 MG TAB (IMMEDIATE RELEASE) PO PRN (23:33)
[2022-02-06] MEDS: INSULIN ASPART PER UNIT SC SCH ×4 (02:28→18:32)
[2022-02-06] MEDS: METOCLOPRAMIDE HCL INJ 5 MG/ML 2 ML VIAL IV SCH ×4 (03:32→20:59)
[2022-02-06] MEDS: SODIUM CHLORIDE 0.9% 1000ML 600 ML IV SCH (06:07)
[2022-02-06] MEDS: FUROSEMIDE 40 MG/4 ML VIAL IV SCH (07:53)
[2022-02-06] MEDS: POTASSIUM CHLORIDE PWD 20 MEQ PACK GT SCH ×2 (07:53→20:19)
[2022-02-06] MEDS: oxyCODONE HCL IR 5 MG TAB (IMMEDIATE RELEASE) PO PRN ×3 (07:53→20:21)
[2022-02-06] MEDS: HEPARIN SOD 5,000 UNIT/0.5 ML VIAL SQ SCH ×2 (07:54→20:16)
[2022-02-06] MEDS: busPIRone 5 MG TAB PO SCH ×3 (07:54→20:15)
[2022-02-06] MEDS: DICLOFENAC SOD 1% GEL 100 GM TUBE EXT SCH ×4 (07:54→20:18)
[2022-02-06] MEDS: METHYLNALTREXONE BROMIDE 12 MG/0.6 ML VIAL SQ SCH (07:55)
[2022-02-06] MEDS: buprenorphine HCL 8 MG SUBL SL SCH ×3 (08:17→20:13)
[2022-02-06 08:35] LABS: Hematocrit (blood only) 32.4 % (37-47); Hemoglobin 10.1 g/dL (12.0-16.0); Mean Corpuscular Hemoglobin 26.6 pg (25-34); Mean Corpuscular Hgb Conc 31.2 g/dL (32-36); Mean Corpuscular Volume 85.5 fL (80-100); Mean Platelet Volume 11.7 fL (7.4-10.4); Platelet Count 208 K/uL (130-400); RDW Coefficient of Variation 16.2 % (11.5-14.5); Red Blood Count 3.79 M/uL (4.2-5.4); White Blood Count 12.58 K/uL (4.8-10.8)
[2022-02-06 09:04] LABS: Albumin Globulin Ratio 0.7 (0.9-2); Albumin Level 3.2 gm/dl (3.4-5.0); Calcium 8.8 mg/dl (8.5-10.1); Creatinine Clr Calc Pharmacy 39.8 ml/min; Est GFR (African American) 85.1 ml/min; Est GFR (Non-African American) 73.4 ml/min; Globulin 4.9 gm/dl (2.5-4.0); Magnesium 2.1 mg/dl (1.7-2.4); Phosphorus 4.4 mg/dl (2.5-4.9); Potassium 3.1 mmol/L (3.5-5.1); Total Protein 8.1 gm/dl (6.0-8.3)
[2022-02-06] MEDS ORDERED: POTASSIUM CHLORIDE CRTAB 20 MEQ TABCR PO STA (09:36)
[2022-02-06] MEDS: POTASSIUM CHLORIDE / WTR 10 MEQ/100 ML PLCT IV SCH ×3 (10:01→11:56)
[2022-02-06] MEDS: D5W AND 1/2NSS + 20MEQ KCL 20 MEQ/1,000 ML BAG IV SCH (14:36)
[2022-02-06] MEDS ORDERED: SODIUM CHLORIDE 0.9% 1000ML 1,000 ML IV SCH (18:45)
[2022-02-06] MEDS ORDERED: ZOLPIDEM TARTRATE 5 MG TAB PO PRN (19:00)
--- NOTE | 2022-02-06 22:34 | Hospitalist Progress Note ---
Date of Service February 06, 2022 Assessment & Plan (1) Shortness of breath: Plan: Attending: Dr. Douglas Impression: 57-year-old patient with extremely complex past medical history. Presented to the hospital with shortness of breath since 01/24/2022. CTA shows no pulmonary embolus. Patient currently is saturating well on room air. Blood pressure stable. No tachypnea. No tachycardia. Patient is afebrile. Chief issue at this time is malnutrition. TPN has been held secondary to rising LFTs. Leading to hospital admission. Related to gastroparesis vs. chronic anemia vs. fluid retention vs. anxiety/panic attacks. CXR showed mild pulm vascular congestion. CTA chest 02/01 neg for PE. Continue Lasix 40 mg IV q12hr. reevaluate tomorrow based on labs Reglan 10 mg IV q6hr for treatment of gastroparesis. Will benefit from PO Reglan at discharge. Briefly touched on risk of tar dive dyskinesia with patient. We will perform full exam tomorrow and further educate. (2) Anemia: Plan: Chronic anemia, prior baseline Hgb ~9 to 10 gm/dL. Hgb decreased to 7 to 8 gm/dL during admission, likely related to dilution. Hemoglobin currently stable at 10.1 g/Jose G Recent iron panel was WNL on 01/22/22; B12 in WNL. Ordered haptoglobin to evaluate for hemolysis, is pending. LDH level mildly elevated but improved compared to prior levels. (3) CHF (congestive heart failure): Plan: Chronic diastolic CHF. ECHO 11/02 with preserved EF. Monitor volume status closely - weight has been stable. Change Lasix 40 mg IV qam and as needed p-BNP elevated at 235 on admission. Check repeat BNP level tomorrow morning with labs. (4) Effusion, left knee: Plan: Orthopedic consultation appreciated. Underwent intra-articular left knee injection on February 03, 2022. She does have a mild leukocytosis on labs - likely related to steroid injection and less likely infectious etiology. (5) Jaundice: Plan: AST, ALT and Alk phos trending up overall. They are elevated at baseline but progressively increasing. CT AP 02/01 neg for liver lesions, hepatomegaly. Continue holding TPN. Follow serial labs Will need to obtain repeat liver imaging if no improvement. (6) Pitting edema: Plan: Resolved Due to severe protein calorie malnutrition; edema now improved. (7) Hepatic steatosis: Plan: Chronic. 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 Also receives TPN infusions - currently on hold as noted above. Check for tar dive dyskinesia for baseline (10) Abnormal LFTs: Plan: As noted above, holding TPN and following closely. (11) Cachexia: Plan: Severe, receiving TPN (currently being held). Current weight of 34.2 kg. BMI of 15.9 kg/m (12) On total parenteral nutrition (TPN): Plan: Following with nutrition, holding over the next 24 to 48 hours due to elevated LFTs. (13) Anxiety: Plan: Continue to hold Ativan (see case management noted regarding family concern with medication). Patient notes that she cannot sleep at night and requests sleep aid. Avoid benzodiazepines. Will do a trial of 5 mg of Ambien tonight. Patient also has melatonin ordered. This will be a second line agent after the Ambien. Starting Buspar 10 mg TID. (14) Malnutrition: Plan: Chronic. Hold tube feeds as above (15) Gastrointestinal tube present: Plan: PEG tube present. Continue to suction. Flush as needed Plan: DVT ppx: Heparin 5,000 units BID. PT/OT recommended resuming home health at discharge. Will need to resume TPN (if LFTs are improved). Admission and Anticipated Discharge Date Admission Date: February 01, 2022 Supervising Physician Co-Signing Physician Notes Attending Attestation - Chart reviewed in detail, care plan d/w FAYE Cheng I agree w/ the jeffers components of his documentation. Roman Douglas MD Subjective Attending: Dr. Douglas Is a 57-year-old female that is extremely cachectic with a BMI of 15.9 kg/m. Patient was seen in the emergency department earlier this month with increased lower extremity edema. She was discharged from the ED on 01/24/2022 and states that she was short of breath since that time. Patient reported have significant edema of both legs resulting in weeping. No evidence of edema to either leg this morning. Skeletal outline of legs and feet easily seen and palpated. Patient pulses are equal bilaterally to the lower extremities. Patient had an intra-articular injection of steroids by Dr. Lowery and Eleuterio Wills PA-C on 02/02/2022. Patient denies any current knee pain. Patient reports that she has been bedbound since admission. She requests permission to ambulate as tolerated. She denies any current chest pain or shortness of breath. She has no abdominal pain or nausea vomiting at this time. PEG tube is hooked up to suction. Patient is tolerating oral liquids at this time. Review of Systems Review of Systems: A total of 10 systems was reviewed and is negative other than as listed in the HPI Physical Exam Physical Exam: GENERAL : No acute distress. Sleeping soundly in bed. Had to awaken her. She appears cachectic. EYES: No icterus, gaze conjugate NOSE: No evidence of epistaxis MOUTH: No lesions or candidiasis NECK: Supple LUNGS: CTA B/L, no wheezes, rales or rhonchi HEART: Regular, rate controlled ABDOMEN: Soft, NT, ND, BS Present. No pain to deep palpation. EXTREMITIES: No LE edema, pedal pulses intact and equal bilaterally NEURO: A&OX3 Results & Data Results & Data ([facility]) Vital Signs (Past 12 Hours) Vital Signs Temp Pulse Pulse Pulse Resp BP BP 02/06/22 19:29 36.7 C 86 16 154/91 H 02/06/22 16:30 79 18 146/91 H 02/06/22 15:14 87 02/06/22 11:23 36.9 C 87 17 118/72 Pulse Ox 02/06/22 19:29 95 02/06/22 16:30 97 02/06/22 15:14 02/06/22 11:23 96 Critical Care Results & Data Vital Signs (Past 12 Hours) Vital Signs Temp Pulse Pulse Pulse Resp BP BP 02/06/22 19:29 36.7 C 86 16 154/91 H 02/06/22 16:30 79 18 146/91 H 02/06/22 15:14 87 02/06/22 11:23 36.9 C 87 17 118/72 Pulse Ox 02/06/22 19:29 95 02/06/22 16:30 97 02/06/22 15:14 02/06/22 11:23 96 Lab & Micro Results (Past 24 Hours) No Data to Display No Data to Display No Data to Display I & O Totals 24 Hours 02/05/22 02/06/22 02/07/22 06:59 06:59 06:59 Intake Total 2016.000 / 2016.000 1474.0 / 1474.0 724.167 / 724.167 Output Total 3250 / 3250 4825 / 4825 1200 / 1200 Balance -1234.000 / -1234.000 -3351.0 / -3351.0 -475.833 / -475.833 Cumulative 02/01/22 14:04 thru 02/06/22 22:00 Intake Total 5765.167 Output Total 37172 Balance -55645.833 RT Ventilator Mngmt (Last Documented) Ventilator Ordered Settings Respiratory Rate 16 02/06/22 19:29 Ventilator - PT Measurements Respiratory Rate 16 PG Care Time/CCT Total # of Minutes Spent Total Time Spent with Patient: Total time spent is greater than 50% in coordination of care (as documented) at patient's floor/unit and/or counseling patient: Coding Level of Care Code 93433 Subseq Hosp Care Lvl 2 Diagnoses Shortness of breath R06.02 Anemia D64.9 Anemia type: unspecified type CHF (congestive heart failure) I50.9 Heart failure chronicity: unspecified Heart failure type: unspecified Effusion, left knee M25.462 Jaundice R17 Pitting edema R60.9 Hepatic steatosis K76.0 Radiation enterocolitis K52.0 Chronic pseudo-obstruction of small intestine K59.89 Abnormal LFTs R79.89 Cachexia R64 On total parenteral nutrition (TPN) Z78.9 Anxiety F41.9 Malnutrition E43 Malnutrition type: protein-calorie malnutrition Protein-calorie malnutrition severity: severe Gastrointestinal tube present Z93.1 (1) CHF (congestive heart failure) Heart failure chronicity: unspecified Heart failure type: unspecified Qualified Code(s): I50.9 - Heart failure, unspecified (2) Anemia Anemia type: unspecified type Qualified Code(s): D64.9 - Anemia, unspecified (3) Malnutrition Malnutrition type: protein-calorie malnutrition Protein-calorie malnutrition severity: severe Qualified Code(s): E43 - Unspecified severe protein-calorie malnutrition
[2022-02-07] MEDS: INSULIN ASPART PER UNIT SC SCH ×4 (00:29→18:02)
[2022-02-07] MEDS: D5W AND 1/2NSS + 20MEQ KCL 20 MEQ/1,000 ML BAG IV SCH ×2 (02:58→15:15)
[2022-02-07] MEDS: oxyCODONE HCL IR 5 MG TAB (IMMEDIATE RELEASE) PO PRN ×3 (03:02→16:56)
[2022-02-07] MEDS: METOCLOPRAMIDE HCL INJ 5 MG/ML 2 ML VIAL IV SCH ×4 (03:47→22:52)
[2022-02-07 06:08] LABS: Hematocrit (blood only) 31.8 % (37-47); Hemoglobin 10.1 g/dL (12.0-16.0); Mean Corpuscular Hemoglobin 26.8 pg (25-34); Mean Corpuscular Hgb Conc 31.8 g/dL (32-36); Mean Corpuscular Volume 84.4 fL (80-100); Mean Platelet Volume 11.4 fL (7.4-10.4); Platelet Count 203 K/uL (130-400); RDW Coefficient of Variation 16.1 % (11.5-14.5); RDW Standard Deviation 49.8 fL (36.4-46.3); Red Blood Count 3.77 M/uL (4.2-5.4); White Blood Count 9.31 K/uL (4.8-10.8)
[2022-02-07 06:48] LABS: Albumin Globulin Ratio 0.7 (0.9-2); Albumin Level 3.2 gm/dl (3.4-5.0); BUN Creatinine Ratio 58.3 (10-20); Bilirubin,Total 5.2 mg/dl (0.2-1.0); Calcium 8.9 mg/dl (8.5-10.1); Creatinine Clr Calc Pharmacy 30.5 ml/min; Est GFR (African American) 69.4 ml/min; Est GFR (Non-African American) 59.9 ml/min; Globulin 4.8 gm/dl (2.5-4.0); Magnesium 2.2 mg/dl (1.7-2.4); Phosphorus 3.6 mg/dl (2.5-4.9); Potassium 3.5 mmol/L (3.5-5.1)
[2022-02-07] MEDS: buprenorphine HCL 8 MG SUBL SL SCH ×3 (08:22→22:10)
[2022-02-07] MEDS: busPIRone 5 MG TAB PO SCH ×3 (08:23→22:50)
[2022-02-07] MEDS: DICLOFENAC SOD 1% GEL 100 GM TUBE EXT SCH ×4 (08:27→22:50)
[2022-02-07] MEDS: POTASSIUM CHLORIDE PWD 20 MEQ PACK GT SCH ×2 (08:28→22:51)
[2022-02-07] MEDS: FUROSEMIDE 40 MG/4 ML VIAL IV SCH (08:31)
[2022-02-07] MEDS: HEPARIN SOD 5,000 UNIT/0.5 ML VIAL SQ SCH ×2 (08:31→22:51)
[2022-02-07] MEDS: SODIUM CHLORIDE 0.9% 1000ML 600 ML IV SCH (12:03)
--- NOTE | 2022-02-07 13:38 | Hospitalist Progress Note ---
Date of Service February 07, 2022 Assessment & Plan (1) Shortness of breath: Plan: Attending: Dr. Douglas Impression: 57-year-old patient with extremely complex past medical history. Presented to the hospital with shortness of breath since 01/24/2022. CTA shows no pulmonary embolus. Patient currently is saturating well on room air. Blood pressure stable. No tachypnea. No tachycardia. Patient is afebrile. Chief issue at this time is malnutrition. TPN has been held secondary to rising LFTs. Repeat LFTs this morning showed decrease but still elevated. Leading to hospital admission. Related to gastroparesis vs. chronic anemia vs. fluid retention vs. anxiety/panic attacks. CXR showed mild pulm vascular congestion. CTA chest 02/01 neg for PE. Continue Lasix 40 mg IV q12hr. reevaluate tomorrow based on labs Reglan 10 mg IV q6hr for treatment of gastroparesis. Will benefit from PO Reglan at discharge. No evidence of tar dive dyskinesia. Continue to monitor (2) Anemia: Plan: Chronic anemia, prior baseline Hgb ~9 to 10 gm/dL. Hgb decreased to 7 to 8 gm/dL during admission, likely related to dilution. Hemoglobin currently stable at 10.1 g/Jose G Recent iron panel was WNL on 01/22/22; B12 in WNL. Ordered haptoglobin to evaluate for hemolysis, is pending. LDH level mildly elevated but improved compared to prior levels. (3) CHF (congestive heart failure): Plan: Chronic diastolic CHF. ECHO 11/02 with preserved EF. Monitor volume status closely - weight has been stable. Change Lasix 40 mg IV qam and as needed p-BNP elevated at 235 on admission. Repeat BNP down to 45. Clinical exam corresponds with labs (4) Effusion, left knee: Plan: Orthopedic consultation appreciated. Underwent intra-articular left knee injection on February 03, 2022. She does have a mild leukocytosis on labs - likely related to steroid injection and less likely infectious etiology. (5) Jaundice: Plan: AST, ALT and Alk phos trending up overall. They are elevated at baseline but progressively increased. They are finally beginning to trend downward CT AP 02/01 neg for liver lesions, hepatomegaly. Continue holding TPN for 1 more day and check LFTs in the morning (6) Pitting edema: Plan: Resolved Due to severe protein calorie malnutrition; edema now improved. (7) Hepatic steatosis: Plan: Chronic. 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 Also receives TPN infusions - currently on hold as noted above. No evidence of tar dive dyskinesia on examination today (10) Abnormal LFTs: Plan: Beginning to trend downward As noted above, holding TPN and following closely. (11) Cachexia: Plan: Severe, receiving TPN (currently being held). Current weight of 34.2 kg. BMI of 15.9 kg/m (12) On total parenteral nutrition (TPN): Plan: Following with nutrition, holding over the next 24 to 48 hours due to elevated LFTs. (13) Anxiety: Plan: Continue to hold Ativan (see case management noted regarding family concern with medication). Patient notes that she cannot sleep at night and requests sleep aid. Avoid benzodiazepines. Patient did not request Ambien last night Patient also has melatonin ordered. This will be a second line agent after the Ambien. Starting Buspar 10 mg TID. (14) Malnutrition: Plan: Chronic. Hold tube feeds as above (15) Gastrointestinal tube present: Plan: PEG tube present. Continue to suction. Flush as needed Plan: DVT ppx: Heparin 5,000 units BID. PT/OT recommended resuming home health at discharge. Will need to resume TPN (if LFTs are improved). Admission and Anticipated Discharge Date Admission Date: February 01, 2022 Supervising Physician Co-Signing Physician Notes Attending Attestation - Chart reviewed in detail, care plan d/w FAYE Cheng I agree w/ the jeffers components of his documentation. Roman Douglas MD Subjective Attending: Dr. Douglas Patient seems much more awake and alert today. Color seems better. Patient is more animated in speech. She continues to have thirst and request to have ice tea. She states that her legs are no longer painful. There is no edema. She denies fever but states that she did have some chills last night. She has no new acute complaints. Review of Systems Review of Systems: A total of 10 systems was reviewed and is negative other than as listed in the HPI Physical Exam Physical Exam: GENERAL : No acute distress. Much more awake today EYES: No icterus, gaze conjugate. Pupils equal round and reactive to light NOSE: No evidence of epistaxis MOUTH: No lesions or candidiasis. Mucosa dry NECK: Supple LUNGS: CTA B/L, no wheezes, rales or rhonchi HEART: Regular, rate controlled ABDOMEN: Soft, NT, ND, BS Present. No pain to deep palpation. EXTREMITIES: No LE edema, pedal pulses intact and equal bilaterally NEURO: A&OX3. No evidence of cogwheeling or ratcheting. No asterixis. No facial tics Results & Data Results & Data ([facility]) Vital Signs (Past 12 Hours) Vital Signs Temp Pulse Pulse Resp BP Pulse Ox 02/07/22 12:20 36.9 C 81 18 133/75 98 02/07/22 07:35 36.2 C L 83 20 127/80 95 02/07/22 07:26 81 02/07/22 03:06 80 16 151/76 H 92 Critical Care Results & Data Vital Signs (Past 12 Hours) Vital Signs Temp Pulse Pulse Resp BP BP Pulse Ox 02/07/22 22:54 36.7 C 84 16 133/79 97 02/07/22 19:16 78 16 166/84 H 97 02/07/22 16:00 107 H 02/07/22 15:23 36.6 C 85 18 156/93 H 100 02/07/22 12:20 36.9 C 81 18 133/75 98 Lab & Micro Results (Past 24 Hours) No Data to Display No Data to Display No Data to Display I & O Totals 24 Hours 02/06/22 02/07/22 02/08/22 06:59 06:59 06:59 Intake Total 1474.0 / 1474.0 1713.500 / 1713.500 982.667 / 982.667 Output Total 4825 / 4825 2550 / 2550 3300 / 3300 Balance -3351.0 / -3351.0 -836.500 / -836.500 -2317.333 / -2317.333 Cumulative 02/01/22 14:04 thru 02/07/22 22:00 Intake Total 7737.167 Output Total 42922 Balance -44231.833 RT Ventilator Mngmt (Last Documented) Ventilator Ordered Settings Respiratory Rate 16 02/07/22 22:54 Ventilator - PT Measurements Respiratory Rate 16 PG Care Time/CCT Total # of Minutes Spent Total Time Spent with Patient: Total time spent is greater than 50% in coordination of care (as documented) at patient's floor/unit and/or counseling patient: Coding Level of Care Code 48915 Subseq Hosp Care Lvl 2 Diagnoses Shortness of breath R06.02 Anemia D64.9 Anemia type: unspecified type CHF (congestive heart failure) I50.9 Heart failure chronicity: unspecified Heart failure type: unspecified Effusion, left knee M25.462 Jaundice R17 Pitting edema R60.9 Hepatic steatosis K76.0 Radiation enterocolitis K52.0 Chronic pseudo-obstruction of small intestine K59.89 Abnormal LFTs R79.89 Cachexia R64 On total parenteral nutrition (TPN) Z78.9 Anxiety F41.9 Malnutrition E43 Malnutrition type: protein-calorie malnutrition Protein-calorie malnutrition severity: severe Gastrointestinal tube present Z93.1 (1) CHF (congestive heart failure) Heart failure chronicity: unspecified Heart failure type: unspecified Qualified Code(s): I50.9 - Heart failure, unspecified (2) Anemia Anemia type: unspecified type Qualified Code(s): D64.9 - Anemia, unspecified (3) Malnutrition Malnutrition type: protein-calorie malnutrition Protein-calorie malnutrition severity: severe Qualified Code(s): E43 - Unspecified severe protein-calorie malnutrition
[2022-02-08] MEDS: INSULIN ASPART PER UNIT SC SCH ×4 (00:27→17:31)
[2022-02-08] MEDS: D5W AND 1/2NSS + 20MEQ KCL 20 MEQ/1,000 ML BAG IV SCH ×2 (03:29→15:58)
[2022-02-08] MEDS: METOCLOPRAMIDE HCL INJ 5 MG/ML 2 ML VIAL IV SCH ×2 (03:30→08:13)
[2022-02-08] MEDS: oxyCODONE HCL IR 5 MG TAB (IMMEDIATE RELEASE) PO PRN ×2 (06:29→11:23)
[2022-02-08] MEDS: FUROSEMIDE 40 MG/4 ML VIAL IV SCH (08:13)
[2022-02-08] MEDS: buprenorphine HCL 8 MG SUBL SL SCH ×3 (08:13→21:11)
[2022-02-08] MEDS: busPIRone 5 MG TAB PO SCH ×3 (08:14→21:11)
[2022-02-08] MEDS: HEPARIN SOD 5,000 UNIT/0.5 ML VIAL SQ SCH ×2 (08:14→21:12)
[2022-02-08] MEDS: POTASSIUM CHLORIDE PWD 20 MEQ PACK GT SCH ×2 (08:14→21:11)
[2022-02-08] MEDS: DICLOFENAC SOD 1% GEL 100 GM TUBE EXT SCH ×4 (08:15→21:12)
[2022-02-08] MEDS: METHYLNALTREXONE BROMIDE 12 MG/0.6 ML VIAL SQ SCH (08:16)
[2022-02-08] MEDS: SODIUM CHLORIDE 0.9% 1000ML 600 ML IV SCH (08:17)
[2022-02-08 08:49] LABS: Hematocrit (blood only) 30.3 % (37-47); Hemoglobin 9.9 g/dL (12.0-16.0); Mean Corpuscular Hemoglobin 27.5 pg (25-34); Mean Corpuscular Hgb Conc 32.7 g/dL (32-36); Mean Corpuscular Volume 84.2 fL (80-100); Mean Platelet Volume 12.1 fL (7.4-10.4); Platelet Count 190 K/uL (130-400); RDW Coefficient of Variation 15.5 % (11.5-14.5); RDW Standard Deviation 48.3 fL (36.4-46.3); White Blood Count 6.79 K/uL (4.8-10.8)
[2022-02-08 10:28] LABS: Alanine Aminotransferase 151 U/L (7-52); Albumin Globulin Ratio 0.7 (0.9-2); Albumin Level 3.1 gm/dl (3.4-5.0); Alkaline Phosphatase 451 U/L (34-104); Aspartate Aminotransferase 173 U/L (13-39); BUN Creatinine Ratio 48.6 (10-20); Bilirubin,Total 4.9 mg/dl (0.2-1.0); Blood Urea Nitrogen 51 mg/dl (6-23); Calcium 8.7 mg/dl (8.5-10.1); Carbon Dioxide > 45 mmol/L (21-32); Chloride 83 mmol/L (98-107); Creatinine Clr Calc Pharmacy 29.1 ml/min; Est GFR (African American) 67.8 ml/min; Est GFR (Non-African American) 58.5 ml/min; Globulin 4.6 gm/dl (2.5-4.0); Glucose 102 mg/dl (70-99(Fasting)); Magnesium 2.1 mg/dl (1.7-2.4); Potassium 3.4 mmol/L (3.5-5.1); Sodium 135 mmol/L (136-145); Total Protein 7.7 gm/dl (6.0-8.3)
[2022-02-08] MEDS: acetaZOLAMIDE 250 MG TAB PO SCH ×2 (12:16→21:12)
--- NOTE | 2022-02-08 12:56 | Hospitalist Progress Note ---
Date of Service February 08, 2022 Assessment & Plan (1) Shortness of breath: Plan: 57-year-old patient with extremely complex past medical history. Presented to the hospital with shortness of breath since 01/24/2022. CTA shows no pulmonary embolus. Patient currently is saturating well on room air. Blood pressure stable. No tachypnea. No tachycardia. Patient is afebrile. Chief issue at this time is malnutrition. TPN has been held secondary to rising LFTs. Repeat LFTs this morning showed decrease but still elevated. Leading to hospital admission. Related to gastroparesis vs. chronic anemia vs. fluid retention vs. anxiety/panic attacks. CXR showed mild pulm vascular congestion. CTA chest 02/01 neg for PE. diruesed and now without any peripheral edema, developing contraction alkalosis--> dc lasix, give 2 doses of diamox no need for Reglan (2) CHF (congestive heart failure): Plan: acute on Chronic diastolic CHF. ECHO 11/02 with preserved EF. no further edema, doing well, contraction alkalosis now dc lasix p-BNP elevated at 235 on admission. Repeat BNP down to 45. Clinical exam corresponds with labs (3) Anxiety: Plan: Continue to hold Ativan (see case management noted regarding family concern with medication). Patient notes that she cannot sleep at night and requests sleep aid. Avoid benzodiazepines. Ambien does not help Patient also has melatonin ordered-make this scheduled add Vistaril prn for anxiety Started Buspar 10 mg TID. consider SSRI (4) Abnormal LFTs: Plan: TBili, AST, ALT and Alk phos trended up. They are elevated at baseline but progressively increased. They are finally beginning to trend downward CT AP 02/01 neg for liver lesions, hepatomegaly. have been holding TPN completely x 3 days and recently her Dietary physician has cut down on her lipids ok to restart TPN and following closely. (5) Pitting edema: Plan: Resolved Due to severe protein calorie malnutrition; edema now improved. (6) Anemia: Plan: Chronic anemia, prior baseline Hgb ~9 to 10 gm/dL. Hgb decreased to 7 to 8 gm/dL during admission, likely related to dilution. Hemoglobin currently stable at 10.1 g/Jose G Recent iron panel was WNL on 01/22/22; B12 in WNL. Ordered haptoglobin to evaluate for hemolysis, is pending. LDH level mildly elevated but improved compared to prior levels. (7) Effusion, left knee: Plan: Orthopedic consultation appreciated. Underwent intra-articular left knee injection on February 03, 2022. She does have a mild leukocytosis on labs - likely related to steroid injection and less likely infectious etiology. (8) Hepatic steatosis: Plan: Chronic. (9) Radiation enterocolitis: Plan: Chronic. (10) Chronic pseudo-obstruction of small intestine: Plan: Reglan 10 mg IV q6hr, Relistor 8 mg q2days ordered but pt never has BMs or abd pains--> dc reglan and Relistor-not necessary uses venting G tube prn (11) Cachexia: Plan: Severe, receiving TPN (currently being held). Current weight of 34.2 kg. BMI of 15.9 kg/m (12) On total parenteral nutrition (TPN): Plan: Following with nutrition, TPN held x 3 days due to elevated LFTs. ok to restart TPN today (13) Malnutrition: Plan: Chronic. On chronic TPN ok to allow clear liquids diet as she uses venting G tube to suction (14) Gastrointestinal tube present: Plan: PEG tube present. Continue to suction. Flush as needed Plan: DVT ppx: Heparin 5,000 units BID. PT/OT recommended resuming home health at discharge. Will need to resume TPN (if LFTs are improved). Plan to start lipids in TPN tomorrow and if LFTs stable dc the next day Admission and Anticipated Discharge Date Admission Date: February 01, 2022 Subjective Continues to ask for medication for sleep and for anxiety- asks for ativan.Taking oxycodone regularly here but not sure why. Is not sure if she passes flatus as she can't feel it. Denies abd pain o r bloating. Has not had a bowel movement in decades. Had some nausea later in day and asked for kirill Asking ot have diet changed to clear liquids as she loves to drink lots of fluids and put G tube to suction. She ambulated today around [facility] with NSR rates 60-70s Review of Systems Review of Systems: All systems reviewed & are unremarkable except as noted in HPI & below Physical Exam Constitutional: WD/WN, vitals as above Eyes: + anicteric sclerae Neck: trachea midline, no thyromegaly Respiratory: normal respiratory effort, lungs clear to auscultation Cardiovascular: RRR, no murmur, no edema Chest (Breasts): Chest: normal inspection of chest Gastrointestinal (Abdomen): normal bowel sounds, soft, nontender, no hepatosplenomegaly with G tube in place Musculoskeletal: Extremities: extremities normal to inspection; no cyanosis and no clubbing Skin: no rashes, warm and dry Neurologic: moves all extremities and awake; no focal motor deficits Psychiatric: A+Ox3, euthymic affect Lymphatic: no lymphedema Results & Data Results & Data ([facility]) Vital Signs (Past 12 Hours) Vital Signs Temp Pulse Pulse Resp BP Pulse Ox 02/08/22 11:10 36.2 C L 70 18 153/88 H 94 02/08/22 07:24 36.7 C 81 18 134/76 95 02/08/22 06:12 82 02/08/22 03:05 36.7 C 76 18 121/73 95 Laboratory Results labs reviewed PG Care Time/CCT Total # of Minutes Spent Total Time Spent with Patient: Total time spent is greater than 50% in coordination of care (as documented) at patient's floor/unit and/or counseling patient: Coding Level of Care Code 72347 Subseq Hosp Care Lvl 2 Diagnoses Shortness of breath R06.02 Anemia D64.9 Anemia type: unspecified type CHF (congestive heart failure) I50.9 Heart failure chronicity: unspecified Heart failure type: unspecified Effusion, left knee M25.462 Pitting edema R60.9 Hepatic steatosis K76.0 Radiation enterocolitis K52.0 Chronic pseudo-obstruction of small intestine K59.89 Abnormal LFTs R79.89 Cachexia R64 On total parenteral nutrition (TPN) Z78.9 Anxiety F41.9 Malnutrition E43 Malnutrition type: protein-calorie malnutrition Protein-calorie malnutrition severity: severe Gastrointestinal tube present Z93.1 (1) CHF (congestive heart failure) Heart failure chronicity: unspecified Heart failure type: unspecified Qualified Code(s): I50.9 - Heart failure, unspecified (2) Anemia Anemia type: unspecified type Qualified Code(s): D64.9 - Anemia, unspecified (3) Malnutrition Malnutrition type: protein-calorie malnutrition Protein-calorie malnutrition severity: severe Qualified Code(s): E43 - Unspecified severe protein-calorie malnutrition
[2022-02-08] MEDS ORDERED: hydrOXYzine HCl 25 MG TAB PO PRN (12:57)
[2022-02-08] MEDS: ONDANSETRON INJ 2 MG/ML 2 ML VIAL IV PRN (15:22)
[2022-02-08] MEDS ORDERED: CENTRAL TPN IV SCH (20:00)
[2022-02-08] MEDS ORDERED: [UNRECOGNIZED DRUG - OTHER] IV SCH (20:00)
[2022-02-08] MEDS ORDERED: AMINO ACID 8% IV SCH (20:00)
[2022-02-08] MEDS: MELATONIN 3 MG TAB PO SCH (21:11)
[2022-02-08] MEDS: TPN RATE CHANGE SCH (21:54)
[2022-02-09] MEDS: INSULIN ASPART PER UNIT SC SCH ×4 (01:23→18:02)
[2022-02-09] MEDS ORDERED: KETOROLAC TROMETHAMINE 15 MG/ML VIAL IV ONE (02:27)
[2022-02-09] MEDS: TPN RATE CHANGE SCH ×2 (08:06→21:07)
[2022-02-09] MEDS: busPIRone 5 MG TAB PO SCH ×3 (08:07→21:04)
[2022-02-09] MEDS: DICLOFENAC SOD 1% GEL 100 GM TUBE EXT SCH ×4 (08:07→21:04)
[2022-02-09] MEDS: HEPARIN SOD 5,000 UNIT/0.5 ML VIAL SQ SCH ×2 (08:07→21:05)
[2022-02-09] MEDS: POTASSIUM CHLORIDE PWD 20 MEQ PACK GT SCH ×2 (08:07→21:06)
[2022-02-09] MEDS: ONDANSETRON INJ 2 MG/ML 2 ML VIAL IV PRN (08:13)
[2022-02-09] MEDS: buprenorphine HCL 8 MG SUBL SL SCH ×3 (08:13→20:20)
[2022-02-09 08:40] LABS: Hematocrit (blood only) 31.8 % (37-47); Hemoglobin 9.9 g/dL (12.0-16.0); Mean Corpuscular Hemoglobin 26.2 pg (25-34); Mean Corpuscular Hgb Conc 31.1 g/dL (32-36); Mean Corpuscular Volume 84.1 fL (80-100); Mean Platelet Volume 11.6 fL (7.4-10.4); Platelet Count 197 K/uL (130-400); RDW Coefficient of Variation 15.2 % (11.5-14.5); RDW Standard Deviation 47.2 fL (36.4-46.3); Red Blood Count 3.78 M/uL (4.2-5.4); White Blood Count 7.83 K/uL (4.8-10.8)
[2022-02-09 09:05] LABS: Albumin Globulin Ratio 0.7 (0.9-2); Albumin Level 2.9 gm/dl (3.4-5.0); BUN Creatinine Ratio 64.2 (10-20); Bilirubin,Total 4.2 mg/dl (0.2-1.0); Calcium 8.3 mg/dl (8.5-10.1); Creatinine Clr Calc Pharmacy 40.4 ml/min; Est GFR (African American) 92.8 ml/min; Est GFR (Non-African American) 80.1 ml/min; Globulin 4.4 gm/dl (2.5-4.0); Magnesium 2.2 mg/dl (1.7-2.4); Phosphorus 3.3 mg/dl (2.5-4.9); Potassium 3.4 mmol/L (3.5-5.1); Total Protein 7.3 gm/dl (6.0-8.3)
--- NOTE | 2022-02-09 16:01 | Hospitalist Progress Note ---
Date of Service February 09, 2022 Assessment & Plan (1) Shortness of breath: Plan: 57-year-old patient with extremely complex past medical history. Presented to the hospital with shortness of breath since 01/24/2022. CTA shows no pulmonary embolus. Patient currently is saturating well on room air. Blood pressure stable. No tachypnea. No tachycardia. Patient is afebrile. Leading to hospital admission. Related to fluid retention and she gives herself too much IVFs at home CXR showed mild pulm vascular congestion. CTA chest 02/01 neg for PE. diruesed and now without any peripheral edema, developed contraction alkalosis--> dcd lasix, give 2 doses of diamox and now improved no need for Reglan which was being given for suspected gastroparesis-she has a venting G tube (2) CHF (congestive heart failure): Plan: acute on Chronic diastolic CHF. ECHO 11/02 with preserved EF. no further edema, doing well, contraction alkalosis now dcd lasix p-BNP elevated at 235 on admission. Repeat BNP down to 45. Clinical exam corresponds with labs Suspect she is giving herself way too much IVFs at home-discussed with her. WIll have to cut down home IVFs (3) Anxiety: Plan: Continue to hold Ativan (see case management noted regarding family concern with medication). Patient notes that she cannot sleep at night and requests sleep aid. Avoid benzodiazepines. Ambien does not help Patient also has melatonin ordered-made this scheduled add Vistaril prn for anxiety and this also helped her sleep last night Started Buspar 10 mg TID. consider SSRI as outpt (4) Abnormal LFTs: Plan: TBili, AST, ALT and Alk phos trended up. They are elevated at baseline but pro gressively increased. They are continuing to trend downward CT AP 02/01 neg for liver lesions, hepatomegaly. held TPN completely x 3 days and recently her Dietary physician has cut down on her lipids to 20 grams three times a week restarted TPN and lipids added back today -follow LFs -tried to call her Hammerer's office but it went to a fax machine? consult GI here to see if needs nay further workup here vs f/u outpt with Hepatology which she has not done in 5 months (5) Pitting edema: Plan: Resolved Due to severe protein calorie malnutrition; edema now resolved (6) Anemia: Plan: Chronic anemia, prior baseline Hgb ~9 to 10 gm/dL. Hgb decreased to 7 to 8 gm/dL during admission, likely related to dilution. Hemoglobin currently stable at 10.1 g/Jose G Recent iron panel was WNL on 01/22/22; B12 in WNL. haptoglobin normal LDH level mildly elevated but improved compared to prior levels. (7) Effusion, left knee: Plan: Orthopedic consultation appreciated. Underwent intra-articular left knee injection on February 03, 2022. She does have a mild leukocytosis on labs - likely related to steroid injection and less likely infectious etiology. (8) Hepatic steatosis: Plan: Chronic. (9) Radiation enterocolitis: Plan: Chronic. (10) Chronic pseudo-obstruction of small intestine: Plan: Reglan 10 mg IV q6hr, Relistor 8 mg q2days ordered but pt never has BMs or abd pains--> dc reglan and Relistor-not necessary uses venting G tube prn (11) Cachexia: Plan: Severe, receiving TPN , follows with [facility]. Carlos [facility]dugo at [facility] Current weight of 33 kg. BMI of 14.9 kg/m (12) On total parenteral nutrition (TPN): Plan: Following with nutrition, TPN held x 3 days due to elevated LFTs. have since restarted TPN f/u outpt with usual weekly labs, DIetary MD (13) Malnutrition: Plan: Chronic. On chronic TPN ok to allow clear liquids diet as she uses venting G tube to suction (14) Gastrointestinal tube present: Plan: PEG tube present. Continue to suction. Flush as needed Plan: DVT ppx: Heparin 5,000 units BID. PT/OT recommended resuming home health at discharge. Will need to resume TPN (if LFTs are improved). Hopeful for dc to home tomorrow Admission and Anticipated Discharge Date Admission Date: February 01, 2022 Subjective Pt questioning why she is not getting maintenance fluids. Reports she at home takes her TPN for 13 hrs/day, then usually does 5 hours of IVF hydration and sometimes give herself extra IVFs if she feels her mouth is dry or her skin is tenting. She is concerned about how skinny her legs are. Discussed that she came in fluid overloaded and her legs being skinny are from malnutrition, muscle wasting/atrophy from underuse. Discussed she is likely giving herself too much fluid at home. Had some nausea and vomiting yesterday and today slightly nauseated but does not want me to take away her clear liquids she uses for comfort. No abd pains. Has chronic back pain and wants to know why the oxycodone was stopped-I explained that there's no point in giving her oxycodone here when she doesn't take it at home for her usual back pain and that she is on SUbutex for this reason. No CP, SOB Tele NSR, rates 70-80s Review of Systems Review of Systems: All systems reviewed & are unremarkable except as noted in HPI & below Physical Exam Constitutional: + cachectic; no acute distress Eyes: + anicteric sclerae Neck: trachea midline, no thyromegaly Respiratory: normal respiratory effort, lungs clear to auscultation Cardiovascular: RRR, no murmur, no edema Chest (Breasts): Chest: normal inspection of chest Gastrointestinal (Abdomen): normal bowel sounds, soft, nontender, no hepatosplenomegaly Musculoskeletal: Extremities: extremities normal to inspection; no cyanosis and no clubbing kyphosis Skin: no rashes, warm and dry Neurologic: moves all extremities and awake; no focal motor deficits Psychiatric: A+Ox3, euthymic affect Lymphatic: no lymphedema Results & Data Results & Data ([facility]) Vital Signs (Past 12 Hours) Vital Signs Temp Pulse Pulse Pulse Resp BP BP 02/09/22 10:51 36.6 C 92 H 18 130/79 02/09/22 07:27 36.3 C L 82 18 134/75 02/09/22 06:14 73 Pulse Ox 02/09/22 10:51 96 02/09/22 07:27 96 02/09/22 06:14 Laboratory Results 02/10/22 02/10/22 02/10/22 Range/Units 07:34 06:14 00:42 Sodium 136 (136-145) mmol/L Potassium 4.7 D (3.5-5.1) mmol/L Chloride 98 (98-107) mmol/L Carbon Dioxide 33 H (21-32) mmol/L Anion Gap 5 (3-11) BUN 70 H (6-23) mg/dl Creatinine 0.85 (0.6-1.2) mg/dl Est Cr Clr Drug Dosing 38.2 ml/min Est GFR ( Amer) 87.5 ml/min Est GFR (Non-Af Amer) 75.5 ml/min BUN/Creatinine Ratio 82.4 H (10-20) Glucose 129 H (70-99(Fasting)) mg/dl POC Glucose 147 H 172 H (70-99) mg/dl Calcium 8.8 (8.5-10.1) mg/dl Phosphorus 2.5 (2.5-4.9) mg/dl Magnesium 2.5 H (1.7-2.4) mg/dl Total Bilirubin 3.8 H (0.2-1.0) mg/dl Direct Bilirubin 2.0 H (0-0.2) mg/dl AST 93 H (13-39) U/L ALT 112 H (7-52) U/L Alkaline Phosphatase 421 H (34-104) U/L Total Protein 7.8 (6.0-8.3) gm/dl Albumin 3.1 L (3.4-5.0) gm/dl 02/09/22 02/09/22 Range/Units 18:02 11:37 Sodium (136-145) mmol/L Potassium (3.5-5.1) mmol/L Chloride (98-107) mmol/L Carbon Dioxide (21-32) mmol/L Anion Gap (3-11) BUN (6-23) mg/dl Creatinine (0.6-1.2) mg/dl Est Cr Clr Drug Dosing ml/min Est GFR ( Amer) ml/min Est GFR (Non-Af Amer) ml/min BUN/Creatinine Ratio (10-20) Glucose (70-99(Fasting)) mg/dl POC Glucose 110 H 138 H (70-99) mg/dl Calcium (8.5-10.1) mg/dl Phosphorus (2.5-4.9) mg/dl Magnesium (1.7-2.4) mg/dl Total Bilirubin (0.2-1.0) mg/dl Direct Bilirubin (0-0.2) mg/dl AST (13-39) U/L ALT (7-52) U/L Alkaline Phosphatase (34-104) U/L Total Protein (6.0-8.3) gm/dl Albumin (3.4-5.0) gm/dl PG Care Time/CCT Total # of Minutes Spent Total Time Spent with Patient: Total time spent is greater than 50% in coordination of care (as documented) at patient's floor/unit and/or counseling patient: Coding Level of Care Code 79620 Subseq Hosp Care Lvl 3 Diagnoses Shortness of breath R06.02 CHF (congestive heart failure) I50.9 Heart failure chronicity: unspecified Heart failure type: unspecified Anxiety F41.9 Abnormal LFTs R79.89 Pitting edema R60.9 Anemia D64.9 Anemia type: unspecified type Effusion, left knee M25.462 Hepatic steatosis K76.0 Radiation enterocolitis K52.0 Chronic pseudo-obstruction of small intestine K59.89 Cachexia R64 On total parenteral nutrition (TPN) Z78.9 Malnutrition E43 Malnutrition type: protein-calorie malnutrition Protein-calorie malnutrition severity: severe Gastrointestinal tube present Z93.1 (1) CHF (congestive heart failure) Heart failure chronicity: unspecified Heart failure type: unspecified Qualified Code(s): I50.9 - Heart failure, unspecified (2) Anemia Anemia type: unspecified type Qualified Code(s): D64.9 - Anemia, unspecified (3) Malnutrition Malnutrition type: protein-calorie malnutrition Protein-calorie malnutrition severity: severe Qualified Code(s): E43 - Unspecified severe protein-calorie malnutrition
[2022-02-09] MEDS ORDERED: AMINO ACID 8% IV SCH (20:00)
[2022-02-09] MEDS ORDERED: [UNRECOGNIZED DRUG - OTHER] IV SCH (20:00)
[2022-02-09] MEDS ORDERED: CLINOLIPID 20% IV FAT EMULSION 100 ML IV SCH (20:00)
[2022-02-09] MEDS ORDERED: CENTRAL TPN IV SCH (20:00)
[2022-02-09] MEDS: MELATONIN 3 MG TAB PO SCH (21:04)
[2022-02-10] MEDS: INSULIN ASPART PER UNIT SC SCH ×3 (01:03→11:49)
[2022-02-10] MEDS: TPN RATE CHANGE SCH (07:14)
[2022-02-10 07:43] VITALS: PULSE 86; TEMP 97.5; O2SAT 98
[2022-02-10] MEDS: buprenorphine HCL 8 MG SUBL SL SCH ×2 (08:17→14:26)
[2022-02-10] MEDS: busPIRone 5 MG TAB PO SCH ×2 (08:17→14:27)
[2022-02-10] MEDS: HEPARIN SOD 5,000 UNIT/0.5 ML VIAL SQ SCH (08:18)
[2022-02-10] MEDS: DICLOFENAC SOD 1% GEL 100 GM TUBE EXT SCH ×2 (08:19→12:34)
[2022-02-10] MEDS: ONDANSETRON INJ 2 MG/ML 2 ML VIAL IV PRN (08:19)
[2022-02-10] MEDS: POTASSIUM CHLORIDE PWD 20 MEQ PACK GT SCH (08:19)
[2022-02-10 08:30] LABS: Albumin Level 3.1 gm/dl (3.4-5.0); BUN Creatinine Ratio 82.4 (10-20); Bilirubin,Total 3.8 mg/dl (0.2-1.0); Calcium 8.8 mg/dl (8.5-10.1); Creatinine Clr Calc Pharmacy 38.2 ml/min; Est GFR (African American) 87.5 ml/min; Est GFR (Non-African American) 75.5 ml/min; Magnesium 2.5 mg/dl (1.7-2.4); Phosphorus 2.5 mg/dl (2.5-4.9); Potassium 4.7 mmol/L (3.5-5.1); Total Protein 7.8 gm/dl (6.0-8.3)
[2022-02-10] MEDS ORDERED: METOCLOPRAMIDE HCL INJ 5 MG/ML 2 ML VIAL IV STA (12:18)
[2022-02-10 14:32] VITALS: BP 130/79
--- NOTE | 2022-02-10 14:58 | Discharge Summary ---
Date of Service February 10, 2022 Admission HPI Per Admitting Provider Caroline is a 57 yo female with a complex PMHx including severe protein-energy malnutrition on TPN, hepatic steatosis, pancytopenia, radiation enterocolitis, chronic partial SBO s/p PEG, osteoporosis, lumbar spinal stenosis, chronic pain disorder on chronic buprenorphine, chronic pancreatitis, and anxietywho presented to the ED with increased lower extremity edema, pain, and shortness of breath since discharge on 01/24. Patient was asleep during the encounter having recently taken pain medication, history was obtained from at bedside. relays Caroline has had increased swelling in her legs since she was discharged. Patient's edema has progressed to weeping in legs and she has also developed a few petechial rashes at the right anterior lynn. She has also had increased shortness of breath requiring elevation of the bed. Her jaundice has remained about the same since her last admission. She's had more frequent emptying of her gastric contents through her stomach bag and has also increased frequency of drinking water and thirst. She is usually on TPN and may have easy to chew or light foods such as crackers or ice cream. She had some dry heaving the day prior but no vomiting. denies any complaints of fevers, chills, abdominal pain, changes in vision or hearing. said she has a history of scoliosis for which she has a hard time straightening herself out. Principal Diagnosis Acute on chronic diastolic CHF Discharge Exam Constitutional WD/WN, vitals as above + cachectic; no acute distress Eyes + anicteric sclerae Neck trachea midline, no thyromegaly Respiratory normal respiratory effort, lungs clear to auscultation Cardiovascular RRR, no murmur, no edema Chest (Breasts) Chest: normal inspection of chest Gastrointestinal (Abdomen) normal bowel sounds, soft, nontender, no hepatosplenomegaly Musculoskeletal Extremities: extremities normal to inspection; no cyanosis and no clubbing Skin no rashes, warm and dry Neurologic moves all extremities and awake; no focal motor deficits Psychiatric A+Ox3, euthymic affect Lymphatic no lymphedema Discharge Data Allergies Allergy/AdvReac Type Severity Reaction Status Date / Time ibuprofen Allergy Intermediate RINGING IN Verified 02/01/22 19:31 EARS,PARTIAL LOSS HEARING ketorolac Allergy Intermediate ROARING Verified 02/01/22 19:31 SOUND IN EARS NSAIDS (Non-Steroidal Allergy Intermediate RINGING IN Verified 02/01/22 19:31 Anti-Inflamma EARS zoledronic acid Allergy Intermediate FLU LIKE Verified 02/01/22 19:31 SYMPTOMS SEVERE HEADACHE vancomycin AdvReac Severe ZACHERY Verified 02/01/22 19:31 SYNDROME alprazolam AdvReac Intermediate LOSS OF Verified 02/01/22 19:31 HEARING aspirin AdvReac Intermediate RINGING IN Verified 02/01/22 19:31 EARS,PARTIAL HEARING LOSS promethazine AdvReac Mild RESTLESS Verified 02/01/22 19:31 LEGS Consultations 02/01/22 19:44 ED Decision to Admit Stat 02/02/22 10:58 Consult Orthopedic Surgery Routine 02/09/22 16:04 Consult Gastroenterology Routine Ordered Studies 02/01/22 17:15 CT abd pelvis IV con only Stat CT angio chest PE protocol Stat Hospital Course (1) Shortness of breath: 57-year-old patient with extremely complex past medical history. Presented to the hospital with shortness of breath since 01/24/2022. CTA shows no pulmonary embolus. Patient currently is saturating well on room air. Blood pressure stable. No tachypnea. No tachycardia. Patient is afebrile. Leading to hospital admission. Related to fluid retention and she gives herself too much IVFs at home CXR showed mild pulm vascular congestion. CTA chest 02/01 neg for PE. diruesed and now without any peripheral edema, developed contraction alkalosis--> dcd lasix, give 2 doses of diamox and now improved no need for Reglan which was being given for suspected gastroparesis-she has a venting G tube (2) CHF (congestive heart failure): acute on Chronic diastolic CHF. ECHO 11/02 with preserved EF. no further edema, doing well after diuresis p-BNP elevated at 235 on admission. Repeat BNP down to 45. Clinical exam corresponds with labs Suspect she is giving herself way too much IVFs at home-discussed with her. WIll have to cut down home IVFs-advised not giving daily IVFs anymore at home (3) Anxiety: Continue to hold Ativan (see case management noted regarding family concern with medication). Patient notes that she cannot sleep at night and requests sleep aid. Avoid benzodiazepines. Ambien does not help Patient also has melatonin ordered-made this scheduled add Vistaril prn for anxiety and this also helped her sleep last night-Rx on discharge Started Buspar 10 mg TID. consider SSRI as outpt (4) Abnormal LFTs: TBili, AST, ALT and Alk phos trended up. They are elevated at baseline but progressively increased. They are continuing to trend downward CT AP 02/01 neg for liver lesions, hepatomegaly. held TPN completely x 3 days and recently her Dietary physician has cut down on her lipids to 20 grams three times a week restarted TPN and lipids added back -follow LFTs as an outpt - f/u outpt with Hepatology which she has not done in 5 months (5) Pitting edema: Resolved Due to severe protein calorie malnutrition; edema now resolved (6) Anemia: Chronic anemia, prior baseline Hgb ~9 to 10 gm/dL. Hgb decreased to 7 to 8 gm/dL during admission, likely related to dilution. Hemoglobin currently stable at 10.1 g/Jose G Recent iron panel was WNL on 01/22/22; B12 in WNL. haptoglobin normal LDH level mildly elevated but improved compared to prior levels. (7) Effusion, left knee: Orthopedic consultation appreciated. Underwent intra-articular left knee injection on February 03, 2022. She does have a mild leukocytosis on labs - likely related to steroid injection and less likely infectious etiology. (8) Hepatic steatosis: Chronic. (9) Radiation enterocolitis: Chronic. (10) Chronic pseudo-obstruction of small intestine: Reglan 10 mg IV q6hr, Relistor 8 mg q2days ordered but pt never has BMs or abd pains--> dc reglan and Relistor-not necessary uses venting G tube prn (11) Cachexia: Severe, receiving TPN , follows with Dr. Carlos Verdugo at [facility] Current weight of 33 kg. BMI of 14.9 kg/m (12) On total parenteral nutrition (TPN): Following with nutrition, TPN held x 3 days due to elevated LFTs. have since restarted TPN f/u outpt with usual weekly labs, DIetary MD (13) Malnutrition: Chronic. On chronic TPN ok to allow clear liquids diet as she uses venting G tube to suction (14) Gastrointestinal tube present: PEG tube present. Continue to suction. Flush as needed DVT ppx: Heparin 5,000 units BID. PT/OT recommended resuming home health at discharge. Dc to home Total Time Total Time Spent Total Time Spent (In Minutes): 35 min Discharge Plan Discharge Items Patient Disposition: Home - Home Health Services Reason For Visit: FLUID OVERLOAD Discharge Diagnosis: Fluid overload, Elevated liver function tests Condition on Discharge: Fair Activity: Resume your previous activity Non-emergency contact: Primary Care Provider Call non-emergency contact if: you have any medication questions and your symptoms worsen Follow-up/Referrals: Kenney Carpenter MD [Primary Care Provider] - (Follow up within 1 week) Diet: Clear liquid Addtl Attending Provider Instructions: You were admitted with excessive fluid on you from taking too much IV fluids. You were given diuretics and had improvement. You should only give yourself the bag of IV fluids once to twice a week at most like we discussed. You can take the reglan occasionally for nausea, but should not take it regularly. You were started on Buspar to help with anxiety three times a day and can take Vistaril as needed for excessive anxiety. You can also take melatonin for sleep which has been helping. It is very important that you follow up with your liver doctor at [facility] as well as your nutritional/TPN doctor. Your liver tests are improving since reducing your lipids. Please continue to have your blood work followed weekly. Pending Studies at Discharge: No Stand-Alone Forms: My [facility] Medications and DC Order Prescriptions: New buspirone 10 mg tablet 10 mg PO TID Qty: 90 RF: 0 hydroxyzine HCl 25 mg Tablet 25 mg PO Q8H PRN (Reason: anxiety) Qty: 30 RF: 0 potassium chloride 20 mEq Packet 20 meq PO DAILY Qty: 30 RF: 0 melatonin 3 mg Tablet 3 mg PO HS Qty: 30 RF: 0 Continued diclofenac sodium 1 % gel 4 g topical QID Qty: 300 RF: 2 cyclobenzaprine 5 mg tablet 5 mg PO DAILY PRN (Reason: muscle spasm) Qty: 20 RF: 0 buprenorphine HCl 8 mg tablet, sublingual 8 mg SUBLINGUAL TID RF: 0 Discharge Orders: Discharge Order (Routine); Ordered 02/10/22 Ordered By: Doreen Rosenberg Admission Data Admit Date/Time: 02/01/22 21:43 Attending Provider: Doreen Rosenberg Admit Provider: Isma Amin Primary Care Provider: Kenney Carpenter Other Providers: [facility] ; Isma Amin ; Slade Lowery ; Kisha Saunders Other Interventions: Discharge Summary Assessment (RN) Last Done: 02/10/22 14:30 Coding Level of Care Code D/C DAY MANAGEMENT >30 MINS Diagnoses Shortness of breath R06.02 CHF (congestive heart failure) I50.9 Heart failure chronicity: unspecified Heart failure type: unspecified Anxiety F41.9 Abnormal LFTs R79.89 Pitting edema R60.9 Anemia D64.9 Anemia type: unspecified type Effusion, left knee M25.462 Hepatic steatosis K76.0 Radiation enterocolitis K52.0 Chronic pseudo-obstruction of small intestine K59.89 Cachexia R64 On total parenteral nutrition (TPN) Z78.9 Malnutrition E43 Malnutrition type: protein-calorie malnutrition Protein-calorie malnutrition severity: severe Gastrointestinal tube present Z93.1
--- NOTE | 2022-02-10 15:05 | Gastrointestinal Consultation ---
Date of Consultation February 10, 2022 Assessment & Plan (1) Elevated LFTs: Most likely secondary to effect of TPN. There is no evidence of obstruction or focal liver abnormalities on imaging. No GI contraindication to discharge. GI will sign off. Please notify us if new/worsening GI issues. Message was sent to Dr. Verdugo in [place] who manages her TPN alerting him of the elevated LFTs and asking if lipids should be decreased. Supervising Physician Co-Signing Physician Notes Attending attestation I have seen, examined this patient, and agree with the findings and above by our mid-level provider BELEN Zamudio, with the following additions: Patient being discharged, LFTs slightly improved with a waxing waning elevations likely related to TPN forumulation Follow LFT"s as outpt f/u with GI nutrtition History of Present Illness Reason for Consultation: Elevated LFTs Requesting Physician: Shakira Attending Physician: Doreen Rosenberg MD History of Present Illness Ms. Caroline Lopez is a 57 yr old female pt of Dr. Carpenter with a hx of malnutrition on TPN (managed by Dr. Verdugo, [place]), chronic partial SBO w a PEG tube which she uses for venting,, hepatic steatosis, pancytopenia, radiation enterocolitis, chronic pain disorder, anxiety and chronic pancreatitis. GI was ask to provide an opinion regarding chronically elevated LFTs, during this admission for fluid overload, they increased/decreased with the highest levels being Allergies Allergy/AdvReac Type Severity Reaction Status Date / Time ibuprofen Allergy Intermediate RINGING IN Verified 02/01/22 19:31 EARS,PARTIAL LOSS HEARING ketorolac Allergy Intermediate ROARING Verified 02/01/22 19:31 SOUND IN EARS NSAIDS (Non-Steroidal Allergy Intermediate RINGING IN Verified 02/01/22 19:31 Anti-Inflamma EARS zoledronic acid Allergy Intermediate FLU LIKE Verified 02/01/22 19:31 SYMPTOMS SEVERE HEADACHE vancomycin AdvReac Severe ZACHERY Verified 02/01/22 19:31 SYNDROME alprazolam AdvReac Intermediate LOSS OF Verified 02/01/22 19:31 HEARING aspirin AdvReac Intermediate RINGING IN Verified 02/01/22 19:31 EARS,PARTIAL HEARING LOSS promethazine AdvReac Mild RESTLESS Verified 02/01/22 19:31 LEGS Home Medications Medication Instructions Recorded Confirmed Type buprenorphine HCl 8 mg sublingual 8 mg SUBLINGUAL TID 11/01/20 02/01/22 History tablet cyclobenzaprine 5 mg tablet 5 mg PO DAILY PRN #20 tab 01/04/22 02/01/22 Rx diclofenac sodium 1 % topical gel 4 g TOPICAL QID #300 g 01/04/22 02/01/22 Rx buspirone 10 mg tablet 10 mg PO TID #90 tab 02/10/22 Rx hydroxyzine HCl 25 mg tablet 25 mg PO Q8H PRN #30 tab 02/10/22 Rx melatonin 3 mg tablet 3 mg PO HS #30 tab 02/10/22 Rx potassium chloride 20 mEq oral 20 meq PO DAILY #30 ea 02/10/22 Rx packet Patient History Medical History Anxiety Chronic pancreatitis Esophageal reflux Fatty liver Secondary to chronic TPN use Gastrointestinal tube present Gastrostomy tube in place Hearing deficit Hypersplenism Infected venous access port Iron deficiency anemia IRON INFUSIONS IN PAST Left ankle sprain Lumbar spinal stenosis Malnutrition Neutropenia On total parenteral nutrition (TPN) 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 Osteoporosis Overdose Peripheral neuropathy Radiation enterocolitis Severe protein-energy malnutrition Short bowel syndrome Subclinical hypothyroidism Thoracic compression fracture Urinary incontinence Surgical History History of cholecystectomy History of colonoscopy History of esophagogastroduodenoscopy (EGD) History of kyphoplasty (~2017) History of removal of tunneled central venous catheter (CVC) with port (11/01/21) Removal IV Central Catheter(Not Applicable) - Madhav Harris, 11/01/21 History of spinal surgery THORACIC AND LUMBAR AREA TUMOR REMOVED 1991 + 1992 - RADIATION 5 WEEKS History of surgery PEG TUBE INSERTION (NOTHING RUNS THROUGH PEG TUBE/USED ONLY FOR RELEASING FOOD PRODUCTS D/T SMALL BOWEL OBSTRUCTION) "PT EATS FOR COMFORT" History of total left hip arthroplasty Port-A-Cath in place BRUNER Status post insertion of percutaneous endoscopic gastrostomy (PEG) tube Family History Mother Diabetes Hypertension Father Family hx of colon cancer Bladder cancer Sister Alcohol abuse Deep vein thrombosis Hypertension Brother Hypertension Grandmother Hypertension Aunt Hypertension Other Cancer Social History Smoking Status: Former smoker Tobacco Type: Cigarettes Age Started Using Tobacco: 12; Age Quit Using Tobacco: 21; Second Hand Exposure: No; Hx Alcohol Use: No Hx Substance Use: No Preferred Language: Kinyarwanda Communication Ability: Effective Visual Impairment: No Limitations Acoustical Material Worker Required: No Beliefs That Will Affect Care: None marital status: Current Living Situation: Spouse current occupational status: disabled Feels Safe at Home: Yes Safety Concerns: Feels Safe At This Time caffeine: Yes Dental Care, Regularly: Yes Physical Activity Frequency: Does not Exercise Seatbelt Use: always Sunscreen Use: No Assistive Devices: Cane, Walker and Wheelchair Review of Systems Review of Systems: ROS: Gen: +chronic weakness, chronically underweight; No fevers Eyes: No eye redness, or pain, no recent vision changes Resp: No SOB, no cough Cardio: + had significant lower ext edema, now resolved. No palpitations/irregular beats, no chest pain GI: Chronic abd pain : Denies pain on urination Skin: No jaundice, itching or new rashes Physical Exam Constitutional: + ill appearing, + cachectic, + frail appearing and comfortable Eyes: PERRL, conjunctivae normal, anicteric sclerae ENMT: external ear and nose normal, oropharynx normal Neck: trachea midline, no thyromegaly Respiratory: normal respiratory effort, lungs clear to auscultation Cardiovascular: RRR, no murmur, no edema Gastrointestinal (Abdomen): Inspection/Auscultation: + hypoactive bowel sounds Percussion/Palpation: + abdomen tender (diffusely) and abdomen soft; no guarding and abdomen not rigid PEG tube in place, hooked up to suction Skin: + turgor decreased; no rashes and no jaundice Neurologic: PERRL, EOMI, accommodation nl, no face palsy, no dysarthria awake; not confused Psychiatric: A+Ox3, euthymic affect Orientation: alert, oriented x 3 and cooperative Results & Data ([facility]) Vital Signs (Past 12 Hours) Vital Signs Temp Pulse Pulse Resp BP BP Pulse Ox 02/10/22 14:30 36.4 C L 82 86 20 150/87 H 130/79 98 02/10/22 07:42 36.4 C L 86 20 150/87 H 98 Laboratory Results WBC 7.83, Hb 9.9, Hct 31.8, Plts 197, PT 10.6, INR 1.2, Na 136, K 4.7, Cl 98, CO2 33, BUN 70, Cr 0.85, glucose 129. Diagnostic Findings CTAP w IV on 02/01/22 : 1 . Compared to previous examination, mildly dilated, fluid-filled loops of small bowel in the stomach are again seen and essentially unchanged. 2. The findings probably represented an ileus versus gastroenteritis. Small bowel series, on a nonemergent basis, could be obtained for further evaluation. 3. Otherwise, no acute intra-abdominal or pelvic abnormality. 4. Additional nonacute findings are delineated above.
[2022-02-10] MEDS ORDERED: AMINO ACID 8% IV SCH (20:00)
[2022-02-10] MEDS ORDERED: CENTRAL TPN IV SCH (20:00)
[2022-02-10] MEDS ORDERED: [UNRECOGNIZED DRUG - OTHER] IV SCH (20:00)
== END 2022-02-10 16:23 | disposition home health service (06) | DRG 291 ==
LOC: ED 14:04 → 2S 21:43 → INTOOBSV 21:43 → SUATTDRO 21:43 → 2S 22:24 → 2W 02-03 21:14

== ENCOUNTER 2022-03-01 06:50 | Inpatient (IN) ==
--- NOTE | 2022-03-01 07:08 | Emergency Department Note ---
Impression & Plan Sepsis, Thrombocytopenia, Hyperbilirubinemia, Elevated procalcitonin, Acute dehydration ED Provider Note NAME: RUTH CHAHAL AGE: 57 SEX: F : 1965 ARRIVES VIA: Ambulance INFORMANT: Patient, ED PROVIDER(S): Peter Escalante MD Chief Complaint: Fevers, chills, arm pain, abdominal pain HPI: Patient was most recently discharged on February 10. 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 Patient does present due to concern for possible illness infection as the patient has had some associated chills and has felt warm. His symptoms began last . The patient is also had associated body aches. The patient does complain of back pain and right upper extremity pain. Patient denies any falls or trauma. Patient's not take anything for symptoms at home. Patient is concerned as she believes that her A2 may be infected and she has had having a chronic leak. Patient did have a central line catheter tip with Nicole back in October which had been removed during that time. At that time they did recommend continuing on February pending finalizing blood cultures the patient did have a lettered catheter IJ placed by Dr. Lopez in November 08, 2021. Patient also has associ ated abdominal pain. Patient is not take anything for symptoms at home. ROS: See HPI for pertinent positives and negatives. A total of 10 systems were reviewed and otherwise negative. Past medical history: See below Surgical history: See below Social history: See below Physical Exam: GENERAL: Moderately ill in appearance, wearing glasses and a mask EYE EXAM: Anicteric sclerae. PERRL, no anisocoria and EOM's grossly intact w/o pain. OROPHARYNX: Dry mucus membranes. Grossly normal dentition. No exudate, posterior pharynx is clear, no tonsillar/uvular deviation or swelling. No cervical adenopathy, no submental, submandibular, or sublingual swelling.] NECK: Supple, no nuchal rigidity, no adenopathy, non-tender. No signs of meningismus. Chest: Right chest wall catheter in place with no obvious overlying skin changes. LUNGS: Clear to auscultation. Normal chest wall mechanics. HEART: Tachycardic and regular, no MRG. ABDOMEN: PEG tube in left abdomen, mild diffuse discomfort throughout BACK: No CVA TTP. SKIN: No rashes and no bruising. UPPER EXTREMITIES: Right upper extremity swelling compared to left, compartments are soft, decreased range of motion secondary to pain of right upper extremity, well perfused LOWER EXTREMITIES: Grossly normal, no edema. NEURO EXAM: A&O x3, cranial nerves II-XII grossly intact, normal speech, moves all 4 extremities on command w/o issue. Good finger to nose, no drift, no sensory deficits. Differential diagnoses: Sepsis, UTI, pneumonia, metabolic, electrolyte abnormalities, cardiac sources, intracerebral event, toxicologic, neurologic, as well as other pathologies. Course: Patient was seen and evaluated the bedside. Full history physical exam was performed. EKG interpreted by me Sinus tachycardia, rate of 111, normal intervals, normal axis, no obvious ST elevations Imaging Studies: See Below Cardiac monitoring: An order was placed for continuous cardiac monitoring. The monitor shows a rate of 112 with tachycardic and regular rhythm. MDM: Patient was seen due to concern for infectious symptoms with associated abdominal pain and right upper extremity swelling. Blood work is obtained along with blood culture urinalysis and lactate. The patient started on empiric Zosyn. I did eventually speak with pharmacy about the patient's prior history of fungemia and Function Was Also Ordered. The Patient Was Ordered COVID Swab. The Patient's Blood Work Did Show Normal White Count Chronic and Stable Anemia but Significant Thrombocytopenia. I Did Speak with Dr. Haas Hematology Who Recommended Platelet Transfusion and a Peripheral Smear. These Were Added. Patient Was Also Added an Ammonia Given the Patient's History of Liver Dysfunction. Patient Did Have a CT of the Head Ordered As Well Given the Significant Thrombocytopenia. The patient was consented and ordered for platelet transfusion EKG with no obvious changes. Head CT is negative. CT abdomen pelvis showed interval development of moderate ascites. Negative chest film. Patient had negative imaging of the right upper extremity patient also did have a venous Doppler completed. Patient's right upper extremity ultrasound showed no acute occlusive DVT. The patient may have some minimal linear stranding of the right IJ which may represent fibrin from a chronic thrombus. This is noted to be redemonstrated from a prior study completed from comparison January 21. Patient does not have any overlying site of infection for her catheter. I was notified that the patient blood pressure had decreased. The patient did have difficult IV access. After further discussion with the hospitalist the decision was made to use the patient's catheter site for IV fluid administration. The patient had only had 300 cc of fluids initially given the initial poor access the fact the patient had not had her primary catheter site used as a site of administration as nursing was concerned as it did not draw but did flush well. The patient did not have adequate fluid resuscitation at the time of her lower blood pressure including would benefit from increased IV fluid hydration in light of her prerenal azotemia. Patient had been covered with broad-spectrum antibiotics and 30 cc/kg bolus after initially being seen. Patient was seen and admitted by Dr. Ibarra to the intensive care unit under Dr. Ramos. I did speak with the patient's who was in agreement with plan of care. Critical Care: I have personally spent 35 minutes of critical care time in direct management of this patient. This includes bedside care, interpretation of diagnostic studies, and testing, discussion with consultants, patient, and family members, and other require inpatient management activities. This 35 minutes is in excess of all separately billable procedures. 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 Osteoporosis Overdose Peripheral neuropathy Pleural effusion Radiation enterocolitis Septic shock Severe protein-energy malnutrition Short bowel syndrome Short gut syndrome Subclinical hypothyroidism Thoracic compression fracture Urinary incontinence Surgical History History of cholecystectomy History of colonoscopy History of esophagogastroduodenoscopy (EGD) History of kyphoplasty (~2018) History of removal of tunneled central venous catheter (CVC) with port ( 2) Removal IV Central Catheter(Not Applicable) - Madhav Harris, 11/01/21 History of spinal surgery THORACIC AND LUMBAR AREA TUMOR REMOVED 1991 + 1992 - RADIATION 5 WEEKS History of surgery PEG TUBE INSERTION (NOTHING RUNS THROUGH PEG TUBE/USED ONLY FOR RELEASING FOOD PRODUCTS D/T SMALL BOWEL OBSTRUCTION) "PT EATS FOR COMFORT" History of total left hip arthroplasty Port-A-Cath in place BRUNER Status post insertion of percutaneous endoscopic gastrostomy (PEG) tube Family History Mother Diabetes Hypertension Father Family hx of colon cancer Bladder cancer Sister Alcohol abuse Deep vein thrombosis Hypertension Brother Hypertension Grandmother Hypertension Aunt Hypertension Other Cancer Social History Smoking Status: Former smoker Tobacco Type: Cigarettes Age Started Using Tobacco: 12; Age Quit Using Tobacco: 21; Second Hand Exposure: No; Do You Dip or Chew Tobacco: No; Hx Alcohol Use: No Hx Substance Use: No Preferred Language: Argentine Communication Ability: Effective Visual Impairment: No Limitations Grounds Foreman Required: No Beliefs That Will Affect Care: None marital status: Current Living Situation: Spouse current occupational status: disabled Other Information That Helps Us Care for You: No Feels Safe at Home: Declines to Answer caffeine: Yes Dental Care, Regularly: Yes Physical Activity Frequency: Does not Exercise Seatbelt Use: always Sunscreen Use: No Assistive Devices: None Allergies Allergies Allergy/AdvReac Type Severity Reaction Status Date / Time ibuprofen Allergy Intermediate RINGING IN Verified 02/01/22 19:31 EARS,PARTIAL LOSS HEARING ketorolac Allergy Intermediate ROARING Verified 02/01/22 19:31 SOUND IN EARS NSAIDS (Non-Steroidal Allergy Intermediate RINGING IN Verified 02/01/22 19:31 Anti-Inflamma EARS zoledronic acid Allergy Intermediate FLU LIKE Verified 02/01/22 19:31 SYMPTOMS SEVERE HEADACHE vancomycin AdvReac Severe ZACHERY Verified 02/01/22 19:31 SYNDROME alprazolam AdvReac Intermediate LOSS OF Verified 02/01/22 19:31 HEARING aspirin AdvReac Intermediate RINGING IN Verified 02/01/22 19:31 EARS,PARTIAL HEARING LOSS promethazine AdvReac Mild RESTLESS Verified 02/01/22 19:31 LEGS Home Meds Home Medications Medication Instructions Recorded Confirmed buprenorphine HCl 8 mg sublingual 8 mg SUBLINGUAL TID 11/01/20 02/01/22 tablet Previous Rx's Medication Instructions Recorded cyclobenzaprine 5 mg tablet 5 mg PO DAILY PRN #20 tab 01/04/22 diclofenac sodium 1 % topical gel 4 g TOPICAL QID #300 g 01/04/22 buspirone 10 mg tablet 10 mg PO TID #90 tab 02/10/22 hydroxyzine HCl 25 mg tablet 25 mg PO Q8H PRN #30 tab 02/10/22 melatonin 3 mg tablet 3 mg PO HS #30 tab 02/10/22 potassium chloride 20 mEq oral 20 meq PO DAILY #30 ea 02/10/22 packet Results & Data (ED) Vital Signs Vital Signs - 24 hr 03/01/22 07:14 03/01/22 07:15 03/01/22 07:16 Temperature 36.5 C Temperature Source Oral Pulse Rate 118 H 116 H 117 H Pulse Rate [Apical] 117 H Pulse Rate from SpO2 Sensor 116 H 116 H Respiratory Rate 24 22 24 Respiratory Effort / Characteristics Non-Labored Spontaneous Respiratory Depth Normal Respiratory Pattern Regular Blood Pressure 112/77 112/77 Blood Pressure [Left Arm] 112/77 Blood Pressure Mean 88 88 Blood Pressure Mean [Left Arm] 88 Blood Pressure Position Pulse Oximetry 96 96 96 Oxygen Delivery Method Room Air Sepsis Recent Fever Within 48 Hours Yes Sepsis New/Unexplained Change in Mental Status N/A Sepsis Action Taken by Nursing Physician Notified 03/01/22 07:30 03/01/22 07:33 03/01/22 07:45 Temperature Temperature Source Pulse Rate 120 H 115 H 121 H Pulse Rate [Apical] Pulse Rate from SpO2 Sensor 120 H 107 H Respiratory Rate 23 24 24 Respiratory Effort / Characteristics Respiratory Depth Respiratory Pattern Blood Pressure 110/70 129/80 Blood Pressure [Left Arm] Blood Pressure Mean 83 96 Blood Pressure Mean [Left Arm] Blood Pressure Position Pulse Oximetry 97 98 96 Oxygen Delivery Method Sepsis Recent Fever Within 48 Hours Sepsis New/Unexplained Change in Mental Status Sepsis Action Taken by Nursing 03/01/22 08:00 03/01/22 08:15 03/01/22 08:17 Temperature Temperature Source Pulse Rate 125 H 128 H 123 H Pulse Rate [Apical] Pulse Rate from SpO2 Sensor Respiratory Rate 22 24 24 Respiratory Effort / Characteristics Respiratory Depth Respiratory Pattern Blood Pressure 118/68 Blood Pressure [Left Arm] Blood Pressure Mean 84 Blood Pressure Mean [Left Arm] Blood Pressure Position Pulse Oximetry 97 Oxygen Delivery Method Sepsis Recent Fever Within 48 Hours Sepsis New/Unexplained Change in Mental Status Sepsis Action Taken by Nursing 03/01/22 08:20 03/01/22 08:22 03/01/22 08:25 Temperature Temperature Source Pulse Rate 121 H 130 H 122 H Pulse Rate [Apical] Pulse Rate from SpO2 Sensor 121 H Respiratory Rate 27 H 22 26 H Respiratory Effort / Characteristics Respiratory Depth Respiratory Pattern Blood Pressure Blood Pressure [Left Arm] Blood Pressure Mean Blood Pressure Mean [Left Arm] Blood Pressure Position Pulse Oximetry 98 95 Oxygen Delivery Method Room Air Sepsis Recent Fever Within 48 Hours Sepsis New/Unexplained Change in Mental Status Sepsis Action Taken by Nursing 03/01/22 08:30 03/01/22 08:35 03/01/22 09:56 Temperature Temperature Source Pulse Rate 127 H 128 H 134 H Pulse Rate [Apical] Pulse Rate from SpO2 Sensor 127 H Respiratory Rate 25 H 27 H 9 L Respiratory Effort / Characteristics Respiratory Depth Respiratory Pattern Blood Pressure 111/64 Blood Pressure [Left Arm] Blood Pressure Mean 79 Blood Pressure Mean [Left Arm] Blood Pressure Position Pulse Oximetry 96 Oxygen Delivery Method Sepsis Recent Fever Within 48 Hours Sepsis New/Unexplained Change in Mental Status Sepsis Action Taken by Nursing 03/01/22 10:00 03/01/22 10:05 03/01/22 10:10 Temperature Temperature Source Pulse Rate 136 H 134 H 130 H Pulse Rate [Apical] Pulse Rate from SpO2 Sensor Respiratory Rate 27 H 26 H 25 H Respiratory Effort / Characteristics Respiratory Depth Respiratory Pattern Blood Pressure Blood Pressure [Left Arm] Blood Pressure Mean Blood Pressure Mean [Left Arm] Blood Pressure Position Pulse Oximetry Oxygen Delivery Method Sepsis Recent Fever Within 48 Hours Sepsis New/Unexplained Change in Mental Status Sepsis Action Taken by Nursing 03/01/22 10:15 03/01/22 10:20 03/01/22 10:25 Temperature Temperature Source Pulse Rate 132 H 132 H 129 H Pulse Rate [Apical] Pulse Rate from SpO2 Sensor 136 H 133 H 129 H Respiratory Rate 24 18 23 Respiratory Effort / Characteristics Respiratory Depth Respiratory Pattern Blood Pressure Blood Pressure [Left Arm] Blood Pressure Mean Blood Pressure Mean [Left Arm] Blood Pressure Position Pulse Oximetry 80 L 94 94 Oxygen Delivery Method Sepsis Recent Fever Within 48 Hours Sepsis New/Unexplained Change in Mental Status Sepsis Action Taken by Nursing 03/01/22 10:30 03/01/22 10:33 03/01/22 10:35 Temperature 36.7 C Temperature Source Oral Pulse Rate 128 H 132 H 124 H Pulse Rate [Apical] Pulse Rate from SpO2 Sensor 128 H 124 H Respiratory Rate 23 24 21 Respiratory Effort / Characteristics Respiratory Depth Respiratory Pattern Blood Pressure 80/51 L 75/47 L Blood Pressure [Left Arm] Blood Pressure Mean 60 56 Blood Pressure Mean [Left Arm] Blood Pressure Position Lying Pulse Oximetry 94 94 94 Oxygen Delivery Method Sepsis Recent Fever Within 48 Hours Sepsis New/Unexplained Change in Mental Status Sepsis Action Taken by Nursing 03/01/22 10:40 03/01/22 10:45 03/01/22 10:50 Temperature Temperature Source Pulse Rate 127 H 126 H 128 H Pulse Rate [Apical] Pulse Rate from SpO2 Sensor 127 H 126 H 128 H Respiratory Rate 21 20 21 Respiratory Effort / Characteristics Respiratory Depth Respiratory Pattern Blood Pressure Blood Pressure [Left Arm] Blood Pressure Mean Blood Pressure Mean [Left Arm] Blood Pressure Position Pulse Oximetry 94 94 94 Oxygen Delivery Method Sepsis Recent Fever Within 48 Hours Sepsis New/Unexplained Change in Mental Status Sepsis Action Taken by Nursing 03/01/22 10:51 03/01/22 10:55 03/01/22 10:56 Temperature Temperature Source Pulse Rate 127 H 126 H 123 H Pulse Rate [Apical] Pulse Rate from SpO2 Sensor 127 H 126 H 124 H Respiratory Rate 21 18 21 Respiratory Effort / Characteristics Respiratory Depth Respiratory Pattern Blood Pressure 79/59 L 90/41 L Blood Pressure [Left Arm] Blood Pressure Mean 65 57 Blood Pressure Mean [Left Arm] Blood Pressure Position Pulse Oximetry 94 94 94 Oxygen Delivery Method Sepsis Recent Fever Within 48 Hours Sepsis New/Unexplained Change in Mental Status Sepsis Action Taken by Nursing 03/01/22 11:00 03/01/22 11:05 Temperature Temperature Source Pulse Rate 118 H 117 H Pulse Rate [Apical] Pulse Rate from SpO2 Sensor 117 H 118 H Respiratory Rate 22 21 Respiratory Effort / Characteristics Respiratory Depth Respiratory Pattern Blood Pressure 77/49 L 103/50 L Blood Pressure [Left Arm] Blood Pressure Mean 58 67 Blood Pressure Mean [Left Arm] Blood Pressure Position Pulse Oximetry 95 95 Oxygen Delivery Method Sepsis Recent Fever Within 48 Hours Sepsis New/Unexplained Change in Mental Status Sepsis Action Taken by Half-Way Medications Current Medication List: was personally reviewed by me Laboratory Data Attestation: I reviewed the patient's lab results. Result diagrams: 03/01/22 07:08 03/01/22 12:57 Lab Results 03/01/22 03/01/22 03/01/22 Range/Units 07:08 07:08 07:08 WBC 8.49 (4.8-10.8) K/uL RBC 3.93 L (4.2-5.4) M/uL Hgb 9.7 L (12.0-16.0) g/dL Hct 31.6 L (37-47) % MCV 80.4 (80-100) fL MCH 24.7 L (25-34) pg MCHC 30.7 L (32-36) g/dL RDW Std Deviation 47.7 H (36.4-46.3) fL RDW Coeff of Esau 16.3 H (11.5-14.5) % Plt Count 13 L* (130-400) K/uL Absolute Nucleated RBC 0.02 H (0-0) K/uL Nucleated RBC % (auto) 0.2 % Neutrophils % (Manual) 100.0 % Neutrophils # (Manual) 8.49 H (1.4-6.5) K/uL Total Absolute Neuts 8.49 H (1.4-6.5) K/uL Total Abs Lymphocytes 0.00 L (1.2-3.4) K/uL Dohle Bodies 1+ Platelet Estimate SIGNIFIC DECREASED (Normal) Hypochromasia Present Echinocytes 1+ Peripher Smr Path Cons PT 18.4 H (9.0-12.0) Seconds INR 1.8 H (0.9-1.1) APTT 35.2 H (21.0-31.0) Seconds PTT Ratio 1.3 Sodium 146 H (136-145) mmol/L Potassium 4.6 (3.5-5.1) mmol/L Chloride 127 H (98-107) mmol/L Carbon Dioxide 14 L (21-32) mmol/L Anion Gap 5 (3-11) BUN 68 H (6-23) mg/dl Creatinine 0.72 (0.6-1.2) mg/dl Est Cr Clr Drug Dosing 45.8 ml/min Est GFR ( Amer) 107.0 ml/min Est GFR (Non-Af Amer) 92.3 ml/min BUN/Creatinine Ratio 94.4 H (10-20) Glucose 137 H (70-99(Fasting)) mg/dl Lactate (0.4-2.0) mmol/L Calcium 8.1 L (8.5-10.1) mg/dl Magnesium 2.2 (1.7-2.4) mg/dl Total Bilirubin 7.0 H (0.2-1.0) mg/dl AST 36 (13-39) U/L ALT 40 (7-52) U/L Alkaline Phosphatase 424 H (34-104) U/L Troponin I High Sens 65.8 H* D (0-14) pg/ml Total Protein 5.7 L (6.0-8.3) gm/dl Albumin 2.3 L (3.4-5.0) gm/dl Globulin 3.4 (2.5-4.0) gm/dl Albumin/Globulin Ratio 0.7 L (0.9-2) Procalcitonin (0-0.5) ng/ml SARS-CoV-2, RNA, NAAT (NEGATIVE) Blood Type Antibody Screen 03/01/22 03/01/22 03/01/22 Range/Units 07:08 07:27 08:10 WBC (4.8-10.8) K/uL RBC (4.2-5.4) M/uL Hgb (12.0-16.0) g/dL Hct (37-47) % MCV (80-100) fL MCH (25-34) pg MCHC (32-36) g/dL RDW Std Deviation (36.4-46.3) fL RDW Coeff of Esau (11.5-14.5) % Plt Count (130-400) K/uL Absolute Nucleated RBC (0-0) K/uL Nucleated RBC % (auto) % Neutrophils % (Manual) % Neutrophils # (Manual) (1.4-6.5) K/uL Total Absolute Neuts (1.4-6.5) K/uL Total Abs Lymphocytes (1.2-3.4) K/uL Dohle Bodies Platelet Estimate (Normal) Hypochromasia Echinocytes Peripher Smr Path Cons PT (9.0-12.0) Seconds INR (0.9-1.1) APTT (21.0-31.0) Seconds PTT Ratio Sodium (136-145) mmol/L Potassium (3.5-5.1) mmol/L Chloride (98-107) mmol/L Carbon Dioxide (21-32) mmol/L Anion Gap (3-11) BUN (6-23) mg/dl Creatinine (0.6-1.2) mg/dl Est Cr Clr Drug Dosing ml/min Est GFR ( Amer) ml/min Est GFR (Non-Af Amer) ml/min BUN/Creatinine Ratio (10-20) Glucose (70-99(Fasting)) mg/dl Lactate 1.8 (0.4-2.0) mmol/L Calcium (8.5-10.1) mg/dl Magnesium (1.7-2.4) mg/dl Total Bilirubin (0.2-1.0) mg/dl AST (13-39) U/L ALT (7-52) U/L Alkaline Phosphatase (34-104) U/L Troponin I High Sens (0-14) pg/ml Total Protein (6.0-8.3) gm/dl Albumin (3.4-5.0) gm/dl Globulin (2.5-4.0) gm/dl Albumin/Globulin Ratio (0.9-2) Procalcitonin 33.00 H (0-0.5) ng/ml SARS-CoV-2, RNA, NAAT NEGATIVE (NEGATIVE) Blood Type Antibody Screen 03/01/22 Range/Units 08:12 WBC (4.8-10.8) K/uL RBC (4.2-5.4) M/uL Hgb (12.0-16.0) g/dL Hct (37-47) % MCV (80-100) fL MCH (25-34) pg MCHC (32-36) g/dL RDW Std Deviation (36.4-46.3) fL RDW Coeff of Esau (11.5-14.5) % Plt Count (130-400) K/uL Absolute Nucleated RBC (0-0) K/uL Nucleated RBC % (auto) % Neutrophils % (Manual) % Neutrophils # (Manual) (1.4-6.5) K/uL Total Absolute Neuts (1.4-6.5) K/uL Total Abs Lymphocytes (1.2-3.4) K/uL Dohle Bodies Platelet Estimate (Normal) Hypochromasia Echinocytes Peripher Smr Path Cons PT (9.0-12.0) Seconds INR (0.9-1.1) APTT (21.0-31.0) Seconds PTT Ratio Sodium (136-145) mmol/L Potassium (3.5-5.1) mmol/L Chloride (98-107) mmol/L Carbon Dioxide (21-32) mmol/L Anion Gap (3-11) BUN (6-23) mg/dl Creatinine (0.6-1.2) mg/dl Est Cr Clr Drug Dosing ml/min Est GFR ( Amer) ml/min Est GFR (Non-Af Amer) ml/min BUN/Creatinine Ratio (10-20) Glucose (70-99(Fasting)) mg/dl Lactate (0.4-2.0) mmol/L Calcium (8.5-10.1) mg/dl Magnesium (1.7-2.4) mg/dl Total Bilirubin (0.2-1.0) mg/dl AST (13-39) U/L ALT (7-52) U/L Alkaline Phosphatase (34-104) U/L Troponin I High Sens (0-14) pg/ml Total Protein (6.0-8.3) gm/dl Albumin (3.4-5.0) gm/dl Globulin (2.5-4.0) gm/dl Albumin/Globulin Ratio (0.9-2) Procalcitonin (0-0.5) ng/ml SARS-CoV-2, RNA, NAAT (NEGATIVE) Blood Type A Positive Antibody Screen NEGATIVE Administered Medications Buprenorphine HCl (Buprenorphine Hcl 8 Mg Subl) 8 mg SL TID [facility] Stop: 03/31/22 13:59 Last Admin: 03/01/22 13:54 Dose: Not Given Documented by: [id number] Buspirone HCl (Buspirone 5 Mg Tab) 10 mg PO TID [facility] Stop: 03/31/22 13:59 Last Admin: 03/01/22 13:54 Dose: Not Given Documented by: [id number] Phenylephrine HCl 20 mg/ (Dextrose) 502 mls @ 25.677 mls/hr IV .[id number] [facility]; Protocol Stop: 03/31/22 12:14 Last Admin: 03/01/22 12:23 Dose: 0.5 mcg/kg/min, 25.7 mls/hr Documented by: [id number] Cosigned by: [id number] Piperacillin Sod/Tazobactam (Sod 3.375 gm/ Dextrose) 115 mls @ 28.75 mls/hr IV Q8H [facility]; Protocol Stop: 03/08/22 13:59 Last Admin: 03/01/22 13:54 Dose: 28.8 mls/hr Documented by: [id number] Dextrose (D10w) 1,000 mls @ 50 mls/hr IV .Q20H [facility] Stop: 03/31/22 14:14 Last Admin: 03/01/22 14:31 Dose: 50 mls/hr Documented by: [id number] Sodium Bicarbonate 75 meq/ (Sodium Chloride) 1,075 mls @ 75 mls/hr IV .[id number] [facility] Stop: 03/31/22 14:29 Last Admin: 03/01/22 14:47 Dose: 75 mls/hr Documented by: [id number] Albumin Human (Albumin 25% 100 Ml) 25 gm in 100 mls @ 50 mls/hr IV Q8H [facility] Stop: 03/04/22 14:29 Last Admin: 03/01/22 14:49 Dose: 50 mls/hr Documented by: [id number] Discontinued Medications Dextrose (Dextrose 50% 50 Ml Syringe) Confirm Administered Dose 50 ml IV .STK- MED ONE Stop: 03/01/22 14:16 Last Admin: 03/01/22 14:22 Dose: 50 ml Documented by: [id number] Cefepime HCl (Maxipime) 2,000 mg in 20 mls @ 5 mls/min IV NOW STA; Protocol Stop: 03/01/22 07:30 Last Admin: 03/01/22 08:12 Dose: Not Given Documented by: [id number] Sodium Chloride (Nss 1000ml) 900 mls @ 999 mls/hr IV .Q55M ONE Stop: 03/01/22 08:24 Last Infusion: 03/01/22 13:21 Dose: 0 mls/hr Documented by: [id number] Admin: 03/01/22 08:13 Dose: 999 mls/hr Documented by: [id number] Piperacillin Sod/Tazobactam Sod (Zosyn) 4.5 gm in 120 mls @ 240 mls/hr IV NOW ONE Stop: 03/01/22 08:04 Last Infusion: 03/01/22 13:03 Dose: 0 mls/hr Documented by: [id number] Admin: 03/01/22 08:15 Dose: 240 mls/hr Documented by: [id number] Calcium Gluconate () 1,000 mg in 60 mls @ 240 mls/hr IV Q15M [facility] Stop: 03/01/22 08:59 Last Infusion: 03/01/22 13:03 Dose: 0 mls/hr Documented by: [id number] Admin: 03/01/22 12:22 Dose: Not Given Documented by: [id number] Admin: 03/01/22 11:09 Dose: 240 mls/hr Documented by: [id number] Caspofungin 70 mg/ Sodium (Chloride) 260 mls @ 260 mls/hr IV NOW ONE Stop: 03/01/22 10:29 Last Infusion: 03/01/22 13:03 Dose: 0 mls/hr Documented by: [id number] Admin: 03/01/22 11:20 Dose: 260 mls/hr Documented by: [id number] Parenteral Electrolytes (Normosol-R) 500 mls @ 999 mls/hr IV .Q31M STA Stop: 03/01/22 12:03 Last Admin: 03/01/22 12:54 Dose: Not Given Documented by: [id number] Parenteral Electrolytes (Normosol-R) 1,000 mls @ 100 mls/hr IV .Q10H [facility] Stop: 03/31/22 11:59 Last Admin: 03/01/22 12:54 Dose: Not Given Documented by: [id number] Daptomycin 200 mg/ Syringe 4 mls @ 2 mls/min IV NOW ONE; Protocol Stop: 03/01/22 13:31 Last Admin: 03/01/22 13:54 Dose: 2 mls/min Documented by: [id number] Phytonadione 5 mg/ Dextrose 50.5 mls @ 101 mls/hr IV 1400 ONE Stop: 03/01/22 14:29 Last Infusion: 03/01/22 14:57 Dose: 0 mls/hr Documented by: [id number] Admin: 03/01/22 14:22 Dose: 101 mls/hr Documented by: [id number] Ioversol (Optiray 320 100ml) 93 ml IV ONCE ONE Stop: 03/01/22 08:53 Last Admin: 03/01/22 08:52 Dose: 93 ml Documented by: [id number] Morphine Sulfate (Morphine Sulfate 2 Mg/Ml Carp) 2 mg IV NOW STA Stop: 03/01/22 07:59 Last Admin: 03/01/22 08:09 Dose: 2 mg Documented by: [id number] Ondansetron HCl (Ondansetron Inj 2 Mg/Ml 2 Ml Vial) 4 mg IV NOW STA Stop: 03/01/22 07:59 Last Admin: 03/01/22 08:08 Dose: 4 mg Documented by: [id number] Sodium Bicarbonate (Sodium Bicarb 8.4% Inj 50 Meq/50 Ml Syr) 100 meq IV NOW STA Stop: 03/01/22 14:17 Last Admin: 03/01/22 14:42 Dose: 100 meq Documented by: [id number] Imaging Data Radiologist's Impression: Abdomen/Pelvis CT 03/01/22 07:27 CT abd pelvis IV con only CLINICAL HISTORY: abd pain TECHNIQUE: Helical axial images of the abdomen and pelvis were obtained and displayed. Automated dose lowering techniques and/or adjustment according to patient size were utilized for this exam. This exam was performed with intravenous contrast. CT DOSE: 329.03 mGy.cm COMPARISON: Comparison is made to CT abdomen pelvis 02/01/2022 FINDINGS: Lower chest: Airspace opacity is noted in the right middle lobe. There are small bilateral pleural effusions, right greater than left. Liver: Unremarkable. No focal lesions are seen. Gallbladder and biliary tree: Patient is status post cholecystectomy. No intra- or extrahepatic biliary ductal dilation. Pancreas: Unremarkable, no focal lesions. Spleen: Splenomegaly is noted, the spleen measures 12 cm. Adrenals: Unremarkable. Kidneys and ureters: Unremarkable. Bladder: Unremarkable. Reproductive organs: Unremarkable. Bowel: A gastrostomy tube is seen. No bowel obstruction is seen. Edema in the bowel wall is noted which may be secondary to ascites. Lymph nodes Retroperitoneal: Unremarkable. Mesenteric: Unremarkable. Pelvic: Unremarkable. Peritoneum: Moderate ascites is seen. Vessels: Atherosclerotic calcifications are seen. Abdominal wall: Cachexia is noted. Bones: Left total hip arthroplasty is seen. Sclerotic focus in the right 11th ri b is unchanged. Degenerative changes are seen in the spine with multilevel compression deformities. IMPRESSION: 1. Interval development of moderate ascites, of unknown etiology. 2. Compared to prior exam, bowel loops are no longer dilated. 3. Cachexia is noted. ACT 112: Negative or not required by law. Electronically signed by: Ruddy Hurtado M.D. 03/01/2022 9:36 AM Chest X-Ray 03/01/22 07:27 XR chest 1V not portable CLINICAL HISTORY: SEPSIS TECHNIQUE: Single frontal radiograph of the chest was obtained. Comparison: Comparison is made to chest radiographs 02/01/2022 FINDINGS: Right jugular catheter is unchanged. Calcified aortic knob is seen. The lungs are clear. No evidence of pleural effusion or pneumothorax. IMPRESSION: No acute chest disease. ACT 112: Negative or not required by law. Electronically signed by: Ruddy Hurtado M.D. 03/01/2022 9:48 AM Forearm X-Ray 03/01/22 07:27 XR forearm RT 2V CLINICAL HISTORY: pain TECHNIQUE: 2 views of the right forearm were obtained. Comparison: None available at the time of this dictation. FINDINGS: There is no evidence of acute fracture or dislocation. The alignment is anatomic. Joint spaces are well-preserved. No soft tissue abnormality is seen. IMPRESSION: No evidence of acute osseous injury. ACT 112: Negative or not required by law. Electronically signed by: Ruddy Hurtado M.D. 03/01/2022 9:49 AM Hand X-Ray 03/01/22 07:27 XR hand RT 2V CLINICAL HISTORY: pain TECHNIQUE: 2 views of the right hand were obtained. Comparison: None available at the time of this dictation. FINDINGS: There is no evidence of an acute fracture. Degenerative changes are seen most prominent in the interphalangeal joints. No soft tissue abnormality is seen. IMPRESSION: Degenerative changes are seen without evidence of acute abnormality. ACT 112: Negative or not required by law. Electronically signed by: Ruddy Hurtado M.D. 03/01/2022 9:38 AM Humerus X-Ray 03/01/22 07:27 XR humerus RT 2V CLINICAL HISTORY: pain TECHNIQUE: 2 radiographic views of the right humerus were obtained. Comparison: None available at the time of this dictation. FINDINGS: There is no evidence for fracture, subluxation or dislocation. The visualized portion of the shoulder and elbow joints are unremarkable. There is normal bone mineralization. The soft tissues are unremarkable. IMPRESSION: No acute osseous injury ACT 112: Negative or not required by law. Electronically signed by: Ruddy Hurtado M.D. 03/01/2022 9:42 AM Venous Doppler Study 03/01/22 07:27 US venous doppler UE RT HISTORY: 57 years-old Female pain/swelling acute pain and swelling of the right upper extremity. History of nonocclusive superficial venous thrombus. COMPARISON: Doppler study dated 01/21/2022 TECHNIQUE: Multiple real-time sonographic images of the right upper extremity deep venous structures were obtained assessing grayscale appearance, color and spectral flow FINDINGS: Limited exam secondary to lack of cooperation from the patient and right chest wall bandage. Subcutaneous edema of the right upper extremity and chest. A line is noted within the subclavian vein. No acute occlusive deep venous thrombus identified. The previously noted superficial venous thrombus is not identified within the right axilla. There is mild linear stranding within the right internal jugular vein which is unchanged. IMPRESSION: 1. No acute occlusive DVT. 2. Minimal linear stranding within the right internal jugular vein is redemonstrated which may represent fibrin from a chronic thrombus. ACT 112: Negative or not required by law. The above report was generated using voice recognition software. It may contain grammatical, syntax or spelling errors. Electronically signed by: Kota Ramírez M.D. 03/01/2022 10:09 AM Wrist X-Ray 03/01/22 07:27 XR wrist RT 2V CLINICAL HISTORY: Right wrist pain. COMPARISON STUDY: No previous studies for comparison. TECHNIQUE: 2 right wrist views FINDINGS: Bones: There is no evidence for an acute fracture or dislocation. There is no lytic or blastic lesion. Joints: The joint spaces are maintained. The bones are in anatomic alignment. Soft tissues: There is no focal soft tissue abnormality. There is no radiopaque foreign body. IMPRESSION: 1. No acute osseous pathology. ACT 112: Negative or not required by law. Electronically signed by: Isauro Franco M.D. 03/01/2022 9:[address] 03/01/22 08:53 CT head/brain wo con CLINICAL HISTORY: platelet of 13 Technique: Contiguous axial CT images of the head were acquired from the base of the skull to the vertex without intravenous contrast administration. Images were viewed in brain, subdural and bone windows. Automated dose lowering techniques and/or adjustment according to patient size were utilized for this exam. Comparison: None available at the time of this dictation. Findings: The ventricles, basal cisterns, and cerebral sulci are normal. There is no acute intracranial hemorrhage or evidence of acute territorial infarction. Neither mass effect, shift of the midline structures, nor abnormal extra-axial fluid collections are shown. Imaged portions of the paranasal sinuses and mastoid air cells are clear. The orbits appear normal. There are no acute fractures of the calvaria or scalp swelling. Impression: No acute intracranial hemorrhage, no evidence of acute territorial infarction or other acute intracranial disease process. ACT 112: Negative or not required by law. Electronically signed by: Ruddy Hurtado M.D. 03/01/2022 9:37 AM Discharge Plan Visit Data Chief Complaint: Illness Stated Complaint: POSSIBLE FEEDING TUBE INFECTION ED Provider: Peter Escalante ED Midlevel Provider: Karyn Storm Discharge Problem: Sepsis, Thrombocytopenia, Hyperbilirubinemia, Elevated procalcitonin, Acute dehydration Patient Disposition: Admitted As Inpatient Discharge Instructions Interventions: ED Discharge Assessment Last Done: 03/01/22 11:41
[2022-03-01] MEDS ORDERED: CEFEPIME 2,000 MG/20 ML VIAL IV STA (07:27)
[2022-03-01] MEDS ORDERED: SODIUM CHLORIDE 0.9% IV ONE (07:30)
[2022-03-01] MEDS ORDERED: PIPERACILLIN/TAZOBACTAM 4.5 GM/120 ML BAG IV ONE (07:35)
[2022-03-01] MEDS ORDERED: ONDANSETRON INJ 2 MG/ML 2 ML VIAL IV STA (07:58)
[2022-03-01] MEDS ORDERED: MoRPHine SULFATE 2 MG/ML CARP IV STA (07:58)
[2022-03-01 07:59] LABS: INR 1.8 (0.9-1.1); Partial Thromboplastin Ratio 1.3; Partial Thromboplastin Time 35.2 Seconds (21.0-31.0); Prothrombin Time 18.4 Seconds (9.0-12.0)
[2022-03-01 08:00] LABS: Albumin Globulin Ratio 0.7 (0.9-2); Albumin Level 2.3 gm/dl (3.4-5.0); BUN Creatinine Ratio 94.4 (10-20); Calcium 8.1 mg/dl (8.5-10.1); Creatinine Clr Calc Pharmacy 45.8 ml/min; Est GFR (Non-African American) 92.3 ml/min; Globulin 3.4 gm/dl (2.5-4.0); Magnesium 2.2 mg/dl (1.7-2.4); Potassium 4.6 mmol/L (3.5-5.1); Total Protein 5.7 gm/dl (6.0-8.3)
[2022-03-01 08:05] LABS: Troponin I High Sensitivity 65.8 pg/ml (0-14)
[2022-03-01 08:11] LABS: Hematocrit (blood only) 31.6 % (37-47); Hemoglobin 9.7 g/dL (12.0-16.0); Mean Corpuscular Hemoglobin 24.7 pg (25-34); Mean Corpuscular Volume 80.4 fL (80-100); RDW Coefficient of Variation 16.3 % (11.5-14.5); RDW Standard Deviation 47.7 fL (36.4-46.3); Red Blood Count 3.93 M/uL (4.2-5.4); White Blood Count 8.49 K/uL (4.8-10.8)
[2022-03-01 08:13] LABS: Mean Corpuscular Hgb Conc 30.7 g/dL (32-36); Nucleated RBC # (auto) 0.02 K/uL (0-0); Nucleated RBC % (auto) 0.2 %; Platelet Count 13 K/uL (130-400)
[2022-03-01 08:15] LABS: Dohle Bodies 1+; Echinocytes 1+; Hypochromasia Present; Platelet Estimate SIGNIFIC DECREASED (Normal)
[2022-03-01 08:21] LABS: ANC (manual) 8.49 K/uL (1.4-6.5); Neutrophils # (manual) 8.49 K/uL (1.4-6.5)
[2022-03-01] MEDS ORDERED: OPTIRAY 320 100ml IV ONE (08:52)
[2022-03-01] MEDS ORDERED: SODIUM CHLORIDE 0.9% 250 ML IV PRN ×2 (08:52→16:28)
[2022-03-01] MEDS ORDERED: CASPOFUNGIN 70 MG in SODIUM CHLORIDE 0.9% 250 ML IV ONE (09:30)
--- NOTE | 2022-03-01 09:30 | XRay Report ---
XR wrist RT 2V CLINICAL HISTORY: Right wrist pain. COMPARISON STUDY: No previous studies for comparison. TECHNIQUE: 2 right wrist views FINDINGS: Bones: There is no evidence for an acute fracture or dislocation. There is no lytic or blastic lesion . Joints: The joint spaces are maintained. The bones are in anatomic alignment. Soft tissues: There is no focal soft tissue abnormality. There is no radiopaque foreign body. IMPRESSION: 1. No acute osseous pathology. ACT 112: Negative or not required by law. Electronically signed by: Isauro Franco M.D. 03/01/2022 9:29 AM
--- NOTE | 2022-03-01 09:38 | CT Scan Report ---
CT abd pelvis IV con only CLINICAL HISTORY: abd pain TECHNIQUE: Helical axial images of the abdomen and pelvis were obtained and displayed. Automated dose lowering techniques and/or adjustment according to patient size were utilized for this exam. This e xam was performed with intravenous contrast. CT DOSE: 329.03 mGy.cm COMPARISON: Comparison is made to CT abdomen pelvis 02/01/2022 FINDINGS: Lower chest: Airspace opacity is noted in the right middle lobe. There are small bilateral pleural e ffusions, right greater than left. Liver: Unremarkable. No focal lesions are seen. Gallbladder and biliary tree: Patient is status post cholecystectomy. No intra- or extrahepatic bilia ry ductal dilation. Pancreas: Unremarkable, no focal lesions. Spleen: Splenomegaly is noted, the spleen measures 12 cm. Adrenals: Unremarkable. Kidneys and ureters: Unremarkable. Bladder: Unremarkable. Reproductive organs: Unremarkable. Bowel: A gastrostomy tube is seen. No bowel obstruction is seen. Edema in the bowel wall is noted whi ch may be secondary to ascites. Lymph nodes Retroperitoneal: Unremarkable. Mesenteric: Unremarkable. Pelvic: Unremarkable. Peritoneum: Moderate ascites is seen. Vessels: Atherosclerotic calcifications are seen. Abdominal wall: Cachexia is noted. Bones: Left total hip arthroplasty is seen. Sclerotic focus in the right 11th rib is unchanged. Degen erative changes are seen in the spine with multilevel compression deformities. IMPRESSION: 1. Interval development of moderate ascites, of unknown etiology. 2. Compared to prior exam, bowel loops are no longer dilated. 3. Cachexia is noted. ACT 112: Negative or not required by law. Electronically signed by: Ruddy Hurtado M.D. 03/01/2022 9:36 AM
--- NOTE | 2022-03-01 09:38 | CT Scan Report ---
CT head/brain wo con CLINICAL HISTORY: platelet of 13 Technique: Contiguous axial CT images of the head were acquired from the base of the skull to the carmela oksana without intravenous contrast administration. Images were viewed in brain, subdural and [facility]. Automated dose lowering techniques and/or adjustment according to patient size were utilized for this exam. Comparison: None available at the time of this dictation. Findings: The ventricles, basal cisterns, and cerebral sulci are normal. There is no acute intracranial hemorrh age or evidence of acute territorial infarction. Neither mass effect, shift of the midline structures , nor abnormal extra-axial fluid collections are shown. Imaged portions of the paranasal sinuses and mastoid air cells are clear. The orbits appear normal. There are no acute fractures of the calvaria or scalp swelling. Impression: No acute intracranial hemorrhage, no evidence of acute territorial infarction or other acute intracra nial disease process. ACT 112: Negative or not required by law. Electronically signed by: Ruddy Hurtado M.D. 03/01/2022 9:37 AM
--- NOTE | 2022-03-01 09:39 | XRay Report ---
XR hand RT 2V CLINICAL HISTORY: pain TECHNIQUE: 2 views of the right hand were obtained. Comparison: None available at the time of this dictation. FINDINGS: There is no evidence of an acute fracture. Degenerative changes are seen most prominent in the interp halangeal joints. No soft tissue abnormality is seen. IMPRESSION: Degenerative changes are seen without evidence of acute abnormality. ACT 112: Negative or not required by law. Electronically signed by: Ruddy Hurtado M.D. 03/01/2022 9:38 AM
--- NOTE | 2022-03-01 09:43 | XRay Report ---
XR humerus RT 2V CLINICAL HISTORY: pain TECHNIQUE: 2 radiographic views of the right humerus were obtained. Comparison: None available at the time of this dictation. FINDINGS: There is no evidence for fracture, subluxation or dislocation. The visualized portion of the shoulder and elbow joints are unremarkable. There is normal bone mineralization. The soft tissues are unremar kable. IMPRESSION: No acute osseous injury ACT 112: Negative or not required by law. Electronically signed by: Ruddy Hurtado M.D. 03/01/2022 9:42 AM
--- NOTE | 2022-03-01 09:49 | XRay Report ---
XR chest 1V not portable CLINICAL HISTORY: SEPSIS TECHNIQUE: Single frontal radiograph of the chest was obtained. Comparison: Comparison is made to chest radiographs 02/01/2022 FINDINGS: Right jugular catheter is unchanged. Calcified aortic knob is seen. The lungs are clear. No evidence of pleural effusion or pneumothorax. IMPRESSION: No acute chest disease. ACT 112: Negative or not required by law. Electronically signed by: Ruddy Hurtado M.D. 03/01/2022 9:48 AM
--- NOTE | 2022-03-01 09:50 | XRay Report ---
XR forearm RT 2V CLINICAL HISTORY: pain TECHNIQUE: 2 views of the right forearm were obtained. Comparison: None available at the time of this dictation. FINDINGS: There is no evidence of acute fracture or dislocation. The alignment is anatomic. Joint spaces are we ll-preserved. No soft tissue abnormality is seen. IMPRESSION: No evidence of acute osseous injury. ACT 112: Negative or not required by law. Electronically signed by: Ruddy Hurtado M.D. 03/01/2022 9:49 AM
--- NOTE | 2022-03-01 10:11 | Ultrasound Report ---
US venous doppler UE RT HISTORY: 57 years-old Female pain/swelling acute pain and swelling of the right upper extremity. His tory of nonocclusive superficial venous thrombus. COMPARISON: Doppler study dated 01/21/2022 TECHNIQUE: Multiple real-time sonographic images of the right upper extremity deep venous structures were obtained assessing grayscale appearance, color and spectral flow FINDINGS: Limited exam secondary to lack of cooperation from the patient and right chest wall bandage. Subcutan eous edema of the right upper extremity and chest. A line is noted within the subclavian vein. No acute occlusive deep venous thrombus identified. The p reviously noted superficial venous thrombus is not identified within the right axilla. There is mild linear stranding within the right internal jugular vein which is unchanged. IMPRESSION: 1. No acute occlusive DVT. 2. Minimal linear stranding within the right internal jugular vein is redemonstrated which may repres ent fibrin from a chronic thrombus. ACT 112: Negative or not required by law. The above report was generated using voice recognition software. It may contain grammatical, syntax o r spelling errors. Electronically signed by: Kota Ramírez M.D. 03/01/2022 10:09 AM
--- NOTE | 2022-03-01 10:26 | History & Physical Report ---
Date of Service March 01, 2022 Assessment & Plan (1) Sepsis: Plan: - Unknown source at this time, patient has new interval development of ascites on CT A/P, had reported concern for PEG tube infection/leak earlier to ED provider. - WBC count 8.49, PCT 33.0, Lactate 1.7. Initially with MAP greater than 65, however with momentary BP dropped in ED with MAP 56/58, responsive to IVF boluses. Sustaining MAP >65. - Hemodynamic resuscitation plan- 900 cc bolus x1 followed by Normosol 500 cc x 1 and Normosol at 100 cc/hour. - Patient with 20-gauge IV in ED, does have right jugular catheter she notes had not been functioning well, accessed in ED for IVF, function okay here. May require central line placement in ICU. - Patient has a history of third spacing, was admitted about 1 month ago for shortness of breath due to volume overload, likely from giving too much IVF after TPN at home. - Blood CX- sent, pending. - Urine CX- ordered, not yet collected - ABX- Zosyn, Caspofungin started in ED given fungemia of central line in October. - Further antibiotics, IVF, vasopressor support deferred to ICU team. (2) Thrombocytopenia: Plan: - Platelet count of 13. PT 18.4, INR 1.8, APTT 35.2, not on anticoagulation. - ED Provider spoke with Dr. Haas of hematology/oncology, recommending peripheral smear and platelet transfusion, patient was consented for this in ED. - Currently being transfused with platelets, care discussed with ICU team, defer further labs/workup for possible to them. (3) Hypocalcemia: Plan: - 8.1, 2g calcium ordered in ED. - Replete and recheck on labs. (4) Hyperbilirubinemia: Plan: - T. Bili 7.0, with normal AST and ALT, however alk phos elevated at 424. - Patient has a history of elevated LFTs, attributed to fluids in her TPN feeds. These will be on hold given her severe sepsis. - Has a chronically elevated T bili in the 24 range, suspect be elevated today in setting of severe sepsis. CT A/P not show any focal hepatic lesions, no intra or extrahepatic ductal dilation noted. s/p cholecystectomy. - Trend progression of LFTs, bilirubin. (5) Anemia: Plan: - Chronic, stable. - Follow on routine labs. (6) Hepatic steatosis: Plan: - Chronic. (7) On total parenteral nutrition (TPN): Plan: - Hold this for now. (8) Anxiety: Plan: - Continue hydroxyzine, BuSpar, with melatonin scheduled at night. (9) Severe protein-energy malnutrition: Plan: - Currently weighs 34.1 kg with BMI 12.9. - With severe cachexia, she follows with Dr. Carlos patel at [facility]. - Holding TPN as above due to severe sepsis. (10) Chronic pain syndrome: Plan: - Due to lumbar spinal stenosis, severe scoliosis, osteoporosis. - Chronically on Flexeril and buprenorphine 8 mg 3 times daily. 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 - Has been on TPN since then. Plan: - Admit to ICU. - SCDs for DVT PPx. - Conditional code--does not want official airway/intubation. History of Present Illness Chief Complaint: Chills, generalized weakness x5 days Primary Care Provider: Kenney Carpenter MD Caroline Lopez is a 57-year-old chronically ill female with severe protein energy malnutrition on TPN, hepatic steatosis, radiation enterocolitis s/p malignant spinal ependymoma in 1992, chronic partial SBO s/p PEG, osteoporosis, lumbar spinal stenosis, chronic pain disorder on buprenorphine, chronic pancreatitis, and anxiety who presents today with chills and generalized weakness since last week. At the time of my visit, patient is very lethargic an d unable to provide history, therefore history is obtained from and ED provider. Patient has been having on and off chills and feeling warm at times over the past 5 days, since of last week. She also had generalized body aches. She was concerned for chronic PEG tube leak. Denies any falls, has been taking her regular medications at home for management of her symptoms. In ED, patient initially presented tachycardic with HR 110-130, stable blood pressure however at the time of my visit with patient, she became significantly hypotensive with SBP 7080s, DBP 4050s. Remains tachycardic with HR 110-120s. Labs significant for platelets 13, PT 18.4, INR 1.8, PTT 35.2, Hgb 9.7 (~baseline), chloride 127, carbon dioxide 14, BUN 68, calcium 8.1, T bili 7.0, AST and ALT wnl. Alk phos 424. hsTrop 65.8, CT A/P showed interval development of moderate ascites, bowel loops no longer dilated compared to last imaging. Head CT ordered given severe thrombocytopenia, unremarkable. Chest x-ray unremarkable. Right wrist hand, forearm, humerus x- rays ordered given pain in RUE, all unrevealing. 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 In ED, hematology was consulted regarding severe thrombocytopenia, they had commended ordering a peripheral smear and platelet transfusion given her low platelets. Patient was also started on empiric antibiotics, Zosyn, cefepime, and caspofungin given her history of fungemia of a central line back in October of this year. Allergies Allergy/AdvReac Type Severity Reaction Status Date / Time ibuprofen Allergy Intermediate RINGING IN Verified 02/01/22 19:31 EARS,PARTIAL LOSS HEARING ketorolac Allergy Intermediate ROARING Verified 02/01/22 19:31 SOUND IN EARS NSAIDS (Non-Steroidal Allergy Intermediate RINGING IN Verified 02/01/22 19:31 Anti-Inflamma EARS zoledronic acid Allergy Intermediate FLU LIKE Verified 02/01/22 19:31 SYMPTOMS SEVERE HEADACHE vancomycin AdvReac Severe ZACHERY Verified 02/01/22 19:31 SYNDROME alprazolam AdvReac Intermediate LOSS OF Verified 02/01/22 19:31 HEARING aspirin AdvReac Intermediate RINGING IN Verified 02/01/22 19:31 EARS,PARTIAL HEARING LOSS promethazine AdvReac Mild RESTLESS Verified 02/01/22 19:31 LEGS Home Medications Medication Instructions Recorded Confirmed Type buprenorphine HCl 8 mg sublingual 8 mg SUBLINGUAL TID 11/01/20 02/01/22 History tablet cyclobenzaprine 5 mg tablet 5 mg PO DAILY PRN #20 tab 01/04/22 02/01/22 Rx diclofenac sodium 1 % topical gel 4 g TOPICAL QID #300 g 01/04/22 02/01/22 Rx buspirone 10 mg tablet 10 mg PO TID #90 tab 02/10/22 Rx hydroxyzine HCl 25 mg tablet 25 mg PO Q8H PRN #30 tab 02/10/22 Rx melatonin 3 mg tablet 3 mg PO HS #30 tab 02/10/22 Rx potassium chloride 20 mEq oral 20 meq PO DAILY #30 ea 02/10/22 Rx packet Past Med/Surg History Medical History (Updated 03/01/22 @ 13:13 by Fernando Molina MD) Anxiety Ascites Chronic pancreatitis Esophageal reflux Gastrointestinal tube present Gastrostomy tube in place Hearing deficit Hypersplenism Infected venous access port Iron deficiency anemia IRON INFUSIONS IN PAST Left ankle sprain Lumbar spinal stenosis Malnutrition Neutropenia On total parenteral nutrition (TPN) 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 Osteoporosis Overdose Peripheral neuropathy Pleural effusion Radiation enterocolitis Septic shock Severe protein-energy malnutrition Short bowel syndrome Short gut syndrome Subclinical hypothyroidism Thoracic compression fracture Urinary incontinence Surgical History History of cholecystectomy History of colonoscopy History of esophagogastroduodenoscopy (EGD) History of kyphoplasty (~2017) History of removal of tunneled central venous catheter (CVC) with port (11/01/21) Removal IV Central Catheter(Not Applicable) - Madhav Harris, 11/01/21 History of spinal surgery THORACIC AND LUMBAR AREA TUMOR REMOVED 1991 + 1992 - RADIATION 5 WEEKS History of surgery PEG TUBE INSERTION (NOTHING RUNS THROUGH PEG TUBE/USED ONLY FOR RELEASING FOOD PRODUCTS D/T SMALL BOWEL OBSTRUCTION) "PT EATS FOR COMFORT" History of total left hip arthroplasty Port-A-Cath in place BRUNER Status post insertion of percutaneous endoscopic gastrostomy (PEG) tube Family History Mother Diabetes Hypertension Father Family hx of colon cancer Bladder cancer Sister Alcohol abuse Deep vein thrombosis Hypertension Brother Hypertension Grandmother Hypertension Aunt Hypertension Other Cancer Social History Smoking Status: Former smoker Tobacco Type: Cigarettes Age Started Using Tobacco: 12; Age Quit Using Tobacco: 21; Second Hand Exposure: No; Do You Dip or Chew Tobacco: No; Hx Alcohol Use: No Hx Substance Use: No Preferred Language: Welsh Communication Ability: Effective Visual Impairment: No Limitations Manager Economic Required: No Beliefs That Will Affect Care: None marital status: Current Living Situation: Spouse current occupational status: disabled Other Information That Helps Us Care for You: No Feels Safe at Home: Declines to Answer caffeine: Yes Dental Care, Regularly: Yes Physical Activity Frequency: Does not Exercise Seatbelt Use: always Sunscreen Use: No Assistive Devices: None Review of Systems Review of Systems: Unobtainable due to cognitive status Physical Exam Physical Exam: General: Lethargic but arousable, shouts out due to pain Head: Normocephalic, atraumatic ENT: PERRL, EOMI, no pharyngeal exudate, mucous membranes moist Chest: Clear to auscultation, on room air, no adventitious breath sounds Cardiac: Tachycardic, regular rhythm, no murmur, no JVD; equal, but diminished peripheral pulses, good capillary refill Abdominal: PEG tube in place, no obvious evidence of infection; mildly diffuse to palpation throughout abdomen; NABS x 4 quadrants, soft, no rebound, guarding Extremities: Normal inspection, no peripheral edema or erythema, calfs nontender to palpation Psych: Normal mood and affect Neuro: strength intact bilaterally and rated 5/5, no motor deficits, speech is clear, no peripheral sensory deficits Skin: no rash or erythema Results & Data Results & Data ([facility]) Vital Signs (Past 12 Hours) Vital Signs Temp Pulse Pulse Resp BP BP Pulse Ox 03/01/22 08:22 130 H 22 95 03/01/22 08:17 123 H 24 118/68 97 03/01/22 08:15 128 H 24 03/01/22 08:00 125 H 22 03/01/22 07:45 121 H 24 129/80 96 03/01/22 07:33 115 H 24 110/70 98 03/01/22 07:30 120 H 23 97 03/01/22 07:16 36.5 C 117 H 117 H 24 112/77 112/77 96 03/01/22 07:15 116 H 22 112/77 96 03/01/22 07:14 118 H 24 96 Laboratory Results Abnormal lab results 03/01/22 03/01/22 03/01/22 Range/Units 07:08 07:08 07:08 RBC 3.93 L (4.2-5.4) M/uL Hgb 9.7 L (12.0-16.0) g/dL Hct 31.6 L (37-47) % MCH 24.7 L (25-34) pg MCHC 30.7 L (32-36) g/dL RDW Std Deviation 47.7 H (36.4-46.3) fL RDW Coeff of Esau 16.3 H (11.5-14.5) % Plt Count 13 L* (130-400) K/uL Absolute Nucleated RBC 0.02 H (0-0) K/uL Neutrophils # (Manual) 8.49 H (1.4-6.5) K/uL Total Absolute Neuts 8.49 H (1.4-6.5) K/uL Total Abs Lymphocytes 0.00 L (1.2-3.4) K/uL PT 18.4 H (9.0-12.0) Seconds INR 1.8 H (0.9-1.1) APTT 35.2 H (21.0-31.0) Seconds Sodium 146 H (136-145) mmol/L Chloride 127 H (98-107) mmol/L Carbon Dioxide 14 L (21-32) mmol/L BUN 68 H (6-23) mg/dl BUN/Creatinine Ratio 94.4 H (10-20) Glucose 137 H (70-99(Fasting)) mg/dl Calcium 8.1 L (8.5-10.1) mg/dl Total Bilirubin 7.0 H (0.2-1.0) mg/dl Alkaline Phosphatase 424 H (34-104) U/L Troponin I High Sens 65.8 H* D (0-14) pg/ml Total Protein 5.7 L (6.0-8.3) gm/dl Albumin 2.3 L (3.4-5.0) gm/dl Albumin/Globulin Ratio 0.7 L (0.9-2) Procalcitonin (0-0.5) ng/ml 03/01/22 Range/Units 07:08 RBC (4.2-5.4) M/uL Hgb (12.0-16.0) g/dL Hct (37-47) % MCH (25-34) pg MCHC (32-36) g/dL RDW Std Deviation (36.4-46.3) fL RDW Coeff of Esau (11.5-14.5) % Plt Count (130-400) K/uL Absolute Nucleated RBC (0-0) K/uL Neutrophils # (Manual) (1.4-6.5) K/uL Total Absolute Neuts (1.4-6.5) K/uL Total Abs Lymphocytes (1.2-3.4) K/uL PT (9.0-12.0) Seconds INR (0.9-1.1) APTT (21.0-31.0) Seconds Sodium (136-145) mmol/L Chloride (98-107) mmol/L Carbon Dioxide (21-32) mmol/L BUN (6-23) mg/dl BUN/Creatinine Ratio (10-20) Glucose (70-99(Fasting)) mg/dl Calcium (8.5-10.1) mg/dl Total Bilirubin (0.2-1.0) mg/dl Alkaline Phosphatase (34-104) U/L Troponin I High Sens (0-14) pg/ml Total Protein (6.0-8.3) gm/dl Albumin (3.4-5.0) gm/dl Albumin/Globulin Ratio (0.9-2) Procalcitonin 33.00 H (0-0.5) ng/ml Diagnostic Findings Abdomen/Pelvis CT 03/01/22 07:27 CT abd pelvis IV con only CLINICAL HISTORY: abd pain TECHNIQUE: Helical axial images of the abdomen and pelvis were obtained and displayed. Automated dose lowering techniques and/or adjustment according to patient size were utilized for this exam. This exam was performed with intravenous contrast. CT DOSE: 329.03 mGy.cm COMPARISON: Comparison is made to CT abdomen pelvis 02/01/2022 FINDINGS: Lower chest: Airspace opacity is noted in the right middle lobe. There are small bilateral pleural effusions, right greater than left. Liver: Unremarkable. No focal lesions are seen. Gallbladder and biliary tree: Patient is status post cholecystectomy. No intra- or extrahepatic biliary ductal dilation. Pancreas: Unremarkable, no focal lesions. Spleen: Splenomegaly is noted, the spleen measures 12 cm. Adrenals: Unremarkable. Kidneys and ureters: Unremarkable. Bladder: Unremarkable. Reproductive organs: Unremarkable. Bowel: A gastrostomy tube is seen. No bowel obstruction is seen. Edema in the bowel wall is noted which may be secondary to ascites. Lymph nodes Retroperitoneal: Unremarkable. Mesenteric: Unremarkable. Pelvic: Unremarkable. Peritoneum: Moderate ascites is seen. Vessels: Atherosclerotic calcifications are seen. Abdominal wall: Cachexia is noted. Bones: Left total hip arthroplasty is seen. Sclerotic focus in the right 11th rib is unchanged. Degenerative changes are seen in the spine with multilevel compression deformities. IMPRESSION: 1. Interval development of moderate ascites, of unknown etiology. 2. Compared to prior exam, bowel loops are no longer dilated. 3. Cachexia is noted. ACT 112: Negative or not required by law. Electronically signed by: Ruddy Hurtado M.D. 03/01/2022 9:36 AM Chest X-Ray 03/01/22 07:27 XR chest 1V not portable CLINICAL HISTORY: SEPSIS TECHNIQUE: Single frontal radiograph of the chest was obtained. Comparison: Comparison is made to chest radiographs 02/01/2022 FINDINGS: Right jugular catheter is unchanged. Calcified aortic knob is seen. The lungs are clear. No evidence of pleural effusion or pneumothorax. IMPRESSION: No acute chest disease. ACT 112: Negative or not required by law. Electronically signed by: Ruddy Hurtado M.D. 03/01/2022 9:48 AM Forearm X-Ray 03/01/22 07:27 XR forearm RT 2V CLINICAL HISTORY: pain TECHNIQUE: 2 views of the right forearm were obtained. Comparison: None available at the time of this dictation. FINDINGS: There is no evidence of acute fracture or dislocation. The alignment is anatomic. Joint spaces are well-preserved. No soft tissue abnormality is seen. IMPRESSION: No evidence of acute osseous injury. ACT 112: Negative or not required by law. Electronically signed by: Ruddy Hurtado M.D. 03/01/2022 9:49 AM Hand X-Ray 03/01/22 07:27 XR hand RT 2V CLINICAL HISTORY: pain TECHNIQUE: 2 views of the right hand were obtained. Comparison: None available at the time of this dictation. FINDINGS: There is no evidence of an acute fracture. Degenerative changes are seen most prominent in the interphalangeal joints. No soft tissue abnormality is seen. IMPRESSION: Degenerative changes are seen without evidence of acute abnormality. ACT 112: Negative or not required by law. Electronically signed by: Ruddy Hurtado M.D. 03/01/2022 9:38 AM Humerus X-Ray 03/01/22 07:27 XR humerus RT 2V CLINICAL HISTORY: pain TECHNIQUE: 2 radiographic views of the right humerus were obtained. Comparison: None available at the time of this dictation. FINDINGS: There is no evidence for fracture, subluxation or dislocation. The visualized portion of the shoulder and elbow joints are unremarkable. There is normal bone mineralization. The soft tissues are unremarkable. IMPRESSION: No acute osseous injury ACT 112: Negative or not required by law. Electronically signed by: Ruddy Hurtado M.D. 03/01/2022 9:42 AM Venous Doppler Study 03/01/22 07:27 US venous doppler UE RT HISTORY: 57 years-old Female pain/swelling acute pain and swelling of the right upper extremity. History of nonocclusive superficial venous thrombus. COMPARISON: Doppler study dated 01/21/2022 TECHNIQUE: Multiple real-time sonographic images of the right upper extremity deep venous structures were obtained assessing grayscale appearance, color and spectral flow FINDINGS: Limited exam secondary to lack of cooperation from the patient and right chest wall bandage. Subcutaneous edema of the right upper extremity and chest. A line is noted within the subclavian vein. No acute occlusive deep venous thrombus identified. The previously noted superficial venous thrombus is not identified within the right axilla. There is mild linear stranding within the right internal jugular vein which is unchanged. IMPRESSION: 1. No acute occlusive DVT. 2. Minimal linear stranding within the right internal jugular vein is redemonstrated which may represent fibrin from a chronic thrombus. ACT 112: Negative or not required by law. The above report was generated using voice recognition software. It may contain grammatical, syntax or spelling errors. Electronically signed by: Kota Ramírez M.D. 03/01/2022 10:09 AM Wrist X-Ray 03/01/22 07:27 XR wrist RT 2V CLINICAL HISTORY: Right wrist pain. COMPARISON STUDY: No previous studies for comparison. TECHNIQUE: 2 right wrist views FINDINGS: Bones: There is no evidence for an acute fracture or dislocation. There is no lytic or blastic lesion. Joints: The joint spaces are maintained. The bones are in anatomic alignment. Soft tissues: There is no focal soft tissue abnormality. There is no radiopaque foreign body. IMPRESSION: 1. No acute osseous pathology. ACT 112: Negative or not required by law. Electronically signed by: Isauro Franco M.D. 03/01/2022 9:[address] 03/01/22 08:53 CT head/brain wo con CLINICAL HISTORY: platelet of 13 Technique: Contiguous axial CT images of the head were acquired from the base of the skull to the vertex without intravenous contrast administration. Images were viewed in brain, subdural and bone windows. Automated dose lowering techniques and/or adjustment according to patient size were utilized for this exam. Comparison: None available at the time of this dictation. Findings: The ventricles, basal cisterns, and cerebral sulci are normal. There is no acute intracranial hemorrhage or evidence of acute territorial infarction. Neither mass effect, shift of the midline structures, nor abnormal extra-axial fluid collections are shown. Imaged portions of the paranasal sinuses and mastoid air cells are clear. The orbits appear normal. There are no acute fractures of the calvaria or scalp swelling. Impression: No acute intracranial hemorrhage, no evidence of acute territorial infarction or other acute intracranial disease process. ACT 112: Negative or not required by law. Electronically signed by: Ruddy Hurtado M.D. 03/01/2022 9:37 AM ECG Additional Comments: Sinus tachycardia Low voltage QRS Septal infarct (cited on or before 01-FEB-2022) Abnormal ECG When compared with ECG of 01-FEB-2022 16:41, No significant change was found. Code Status & VTE Plan Code Status Conditional Code--does not want any artificial airwayor intubation Supervising Physician Co-Signing Physician Notes Patient was seen and examined independently I discussed the case with Roopa VO Patient was seen and stabilized in acute hypotensive state possibly felt seconda ry to sepsis or hypovolemia due to short gut syndrome. Patient has likely contraction alkalosis with hypochloremia. Her abdominal exam is abnormal and she is newfound ascites and some leaking from her PEG tube site. Patient was able to be awoken she was in pain when examined specifically with her abdomen and her wrist which were also x-rayed and found to have no fractures. Patient was volume resuscitated in the emergency department with improvement of her blood pressure enough to be transferred to the ICU. She is put on broad- spectrum antibiotics and antifungals as she has history of fungemia due to her chronic TPN administration. I did a warm handoff to the ICU team personally speaking to Dr. Toledo. I did however she does "not want to be on machines" therefore he made her DNI. I reviewed pertinent past medical social family history and also the plan of care and agree with the plan of care. Any exceptions will be noted below PG Care Time/CCT Total # of Minutes Spent Total Time Spent with Patient: Total time spent is greater than 50% in coordination of care (as documented) at patient's floor/unit and/or counseling patient: Coding Level of Care Code 28767 Initial Inpt Care Lvl 3 Diagnoses Thrombocytopenia D69.6 Sepsis A41.9 Hyperbilirubinemia E80.6 Anemia D64.9 Anemia type: unspecified type Hepatic steatosis K76.0 On total parenteral nutrition (TPN) Z78.9 Anxiety F41.9 Severe protein-energy malnutrition E43 Chronic pain syndrome G89.4 Radiation enterocolitis K52.0 Hypocalcemia E83.51 (1) Anemia Anemia type: unspecified type Qualified Code(s): D64.9 - Anemia, unspecified
--- NOTE | 2022-03-01 10:48 | Emergency Department Note ---
General (ED) Blank Date of Service March 01, 2022 ED Visit Note I personally saw, interviewed, and examined the patient. Patient's case was discussed with Dr. Escalante, ED attending, and I assisted with MDM. Please see attending documentation for full details. Resident Activity Tracking Resident Involvement: Resident Care Provided Care Provided: Adult ED
[2022-03-01] MEDS: CALCIUM GLUCONATE 1,000 MG/60 ML BAG IV SCH ×2 (11:09→12:22)
[2022-03-01] MEDS ORDERED: NORMOSOL-R 500 ML IV STA (11:33)
[2022-03-01] MEDS ORDERED: NORMOSOL-R 1,000 ML IV SCH (12:00)
[2022-03-01] MEDS ORDERED: STAT IV Infusion **Titration per Protocol STA ×3 (12:01→18:13)
[2022-03-01] MEDS: PHENYLEPHRINE HCL 20 MG in DEXTROSE 5% 500 ML IV SCH (12:23)
[2022-03-01] MEDS ORDERED: ACETAMINOPHEN 325 MG TAB PO PRN (12:31)
[2022-03-01] MEDS ORDERED: hydrOXYzine HCl 25 MG TAB PO PRN (12:31)
[2022-03-01] MEDS ORDERED: CYCLOBENZAPRINE HCL 5 MG TAB PO PRN (12:31)
[2022-03-01] MEDS ORDERED: ICU PROTOCOL FOR HYPERGLYCEMIA PRN (12:31)
[2022-03-01] MEDS ORDERED: ONDANSETRON INJ 2 MG/ML 2 ML VIAL IV PRN (12:31)
[2022-03-01] MEDS ORDERED: DICLOFENAC SOD 1% GEL 100 GM TUBE EXT SCH (13:00)
--- NOTE | 2022-03-01 13:09 | Critical Care Consultation ---
Date of Consultation March 01, 2022 Assessment & Plan (1) Septic shock: (2) Jaundice: (3) Elevated LFTs: (4) Short gut syndrome: (5) Cachexia: (6) Severe protein-energy malnutrition: (7) Gastrointestinal tube present: (8) On total parenteral nutrition (TPN): (9) Ascites: 57-year-old female with a past medical history of radiation proctitis, short gut syndrome, chronic TPN use, chronic pancreatitis and chronic pain syndrome who presented to the ER and was found to have septic shock. Neurologic: Patient with likely metabolic encephalopathy. CT head without acute intracranial process. Ammonia level ordered given her transaminitis. Continue aspiration precautions. Avoid mind altering agents at this time. Pulmonary: Minimal oxygen support required at this time. Increased work of breathing likely due to metabolic acidosis which should improve with fluid resuscitation. Cardiovascular: Patient has reflexive tachycardia due to her sepsis. Troponin elevated likely due to demand ischemia. We will continue to trend troponin. Maintain mean arterial pressures above 65. Phenylephrine infusion ordered. We will use the catheter at this time for central access. Gastrointestinal: Patient with a history of short gut. Transaminitis noted with an elevated T bili and alk phos. She has a history of cholecystectomy. CT abdomen with moderate ascites seen. The G-tube insertion site appears infected. Will consult general surgery. We will hold off on further TPN administration at this time and reevaluate her situation tomorrow. She is at risk for refeeding syndrome. Patient also with an elevated INR likely due to malnutrition. Renal: Juarez catheter in place with adequate urine output. Continue monitoring urine output closely. Replace electrolytes as needed. Repeat BMP ordered. Infectious disease: Patient is essentially immunocompromised due to her severe protein malnutrition. Daptomycin and Zosyn ordered. Caspofungin ordered as well given a history of fungemia. Will await blood and urine cultures. Procalcitonin elevated. PEG tube and ascites may be the source of infection. Jaime catheter may also be a source of infection although with no obvious fluctuance or inflammation noted around the catheter site. Hematologic: Patient with profound thrombocytopenia likely consumptive coagulopathy in the setting of sepsis. She is status post pooled platelet transfusion. Will await repeat CBC. Repeat INR and fibrinogen ordered. Endocrine: We will check a TSH and random cortisol level. Maintain euglycemia. Lines and tubes: Peripheral IVs placed 03/01/2022. Juarez catheter placed 03/01/2022. Right-sided Jaime catheter in place. VTE prophylaxis: SCDs. CODE STATUS: Okay for CPR and defibrillation. DNI. Family at bedside: updated at bedside by the hospitalist service Disposition: ICU I have personally spent 42 minutes of critical care time in the direct management of this patient. This is a life/limb threatening event. This includes time spent evaluating patient, direct bedside care, chart review, placing orders, interpretation of diagnostic studies, discussion with consultants, patient, and family members, as well as other required patient management activities. This time is exclusive of all separately billable procedures, and teaching time and separate from and in addition to any other critical care service time. Thank you for allowing us to participate in the care of this patient. 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 Patient is unable to give much history. Collateral history is obtained from chart review, discussion with the bedside nurse and hospitalist service. Patient presents to the ICU hypotensive with systolic blood pressures in the 60s. She received 1 L normal saline in the ER. She is also receiving additional liter of half-normal saline in the ICU. She was started on phenylephrine infusion via her Jaime catheter. She has a G-tube in place which appears to be infected. Currently her heart rates are improving and her heart rate is 108. She came in with heart rates in the 120s. She was also found to be profoundly thrombocytopenic with a platelet count of 13,000. She received a unit of platelets. Peripheral smear did not reveal evidence of schistocytes. Her LFTs were also found to be deranged and her T bili was 7. Alk phos was 424. Troponin I was elevated. CT of her abdomen pelvis demonstrated moderate ascites. There is also concern of fall in her right wrist, forearm, humerus x-rays were all unrevealing. Patient received Zosyn, cefepime and caspofungin in the ER. Allergies Allergy/AdvReac Type Severity Reaction Status Date / Time ibuprofen Allergy Intermediate RINGING IN Verified 02/01/22 19:31 EARS,PARTIAL LOSS HEARING ketorolac Allergy Intermediate ROARING Verified 02/01/22 19:31 SOUND IN EARS NSAIDS (Non-Steroidal Allergy Intermediate RINGING IN Verified 02/01/22 19:31 Anti-Inflamma EARS zoledronic acid Allergy Intermediate FLU LIKE Verified 02/01/22 19:31 SYMPTOMS SEVERE HEADACHE vancomycin AdvReac Severe ZACHERY Verified 02/01/22 19:31 SYNDROME alprazolam AdvReac Intermediate LOSS OF Verified 02/01/22 19:31 HEARING aspirin AdvReac Intermediate RINGING IN Verified 02/01/22 19:31 EARS,PARTIAL HEARING LOSS promethazine AdvReac Mild RESTLESS Verified 02/01/22 19:31 LEGS Home Medications Medication Instructions Recorded Confirmed Type buprenorphine HCl 8 mg sublingual 8 mg SUBLINGUAL TID 11/01/20 02/01/22 History tablet cyclobenzaprine 5 mg tablet 5 mg PO DAILY PRN #20 tab 01/04/22 02/01/22 Rx diclofenac sodium 1 % topical gel 4 g TOPICAL QID #300 g 01/04/22 02/01/22 Rx buspirone 10 mg tablet 10 mg PO TID #90 tab 02/10/22 Rx hydroxyzine HCl 25 mg tablet 25 mg PO Q8H PRN #30 tab 02/10/22 Rx melatonin 3 mg tablet 3 mg PO HS #30 tab 02/10/22 Rx potassium chloride 20 mEq oral 20 meq PO DAILY #30 ea 02/10/22 Rx packet Patient History Medical History (Updated 03/01/22 @ 13:13 by Fernando Molina MD) Anxiety Ascites Chronic pancreatitis Esophageal reflux Gastrointestinal tube present Gastrostomy tube in place Hearing deficit Hypersplenism Infected venous access port Iron deficiency anemia IRON INFUSIONS IN PAST Left ankle sprain Lumbar spinal stenosis Malnutrition Neutropenia On total parenteral nutrition (TPN) 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 Osteoporosis Overdose Peripheral neuropathy Pleural effusion Radiation enterocolitis Septic shock Severe protein-energy malnutrition Short bowel syndrome Short gut syndrome Subclinical hypothyroidism Thoracic compression fracture Urinary incontinence Surgical History History of cholecystectomy History of colonoscopy History of esophagogastroduodenoscopy (EGD) History of kyphoplasty (~2017) History of removal of tunneled central venous catheter (CVC) with port (11/01/21) Removal IV Central Catheter(Not Applicable) - Madhav Harris, 11/01/21 History of spinal surgery THORACIC AND LUMBAR AREA TUMOR REMOVED 1991 + 1992 - RADIATION 5 WEEKS History of surgery PEG TUBE INSERTION (NOTHING RUNS THROUGH PEG TUBE/USED ONLY FOR RELEASING FOOD PRODUCTS D/T SMALL BOWEL OBSTRUCTION) "PT EATS FOR COMFORT" History of total left hip arthroplasty Port-A-Cath in place JAIME Status post insertion of percutaneous endoscopic gastrostomy (PEG) tube Family History Mother Diabetes Hypertension Father Family hx of colon cancer Bladder cancer Sister Alcohol abuse Deep vein thrombosis Hypertension Brother Hypertension Grandmother Hypertension Aunt Hypertension Other Cancer Social History Smoking Status: Former smoker Tobacco Type: Cigarettes Age Started Using Tobacco: 12; Age Quit Using Tobacco: 21; Second Hand Exposure: No; Do You Dip or Chew Tobacco: No; Hx Alcohol Use: No Hx Substance Use: No Preferred Language: Bruneian Communication Ability: Effective Visual Impairment: No Limitations Casket Inspector Required: No Beliefs That Will Affect Care: None marital status: Current Living Situation: Spouse current occupational status: disabled Other Information That Helps Us Care for You: No Feels Safe at Home: Declines to Answer caffeine: Yes Dental Care, Regularly: Yes Physical Activity Frequency: Does not Exercise Seatbelt Use: always Sunscreen Use: No Assistive Devices: None Review of Systems Review of Systems: Unobtainable due to cognitive status Physical Exam Physical Exam: Constitutional: Cachectic and frail appearing female in moderate distress. Eyes: Pupils are equal round and reactive to light. Conjunctivae are normal. Anicteric sclera. Ears nose, mouth and throat: Bitemporal wasting. Oral mucosa appears dry. Neck: Trachea is midline. Visual inspection is normal. Respiratory: Coarse lung sounds bilaterally with mildly increased work of breathing. Cardiovascular: Tachycardic. No murmur. No edema. Gastrointestinal: Numerous old healed scars noted on the abdomen. Abdomen tender to palpation. Musculoskeletal: No cyanosis. Patient is able to move all extremities. Strength is 5 out of 5 in the upper and lower extremities. Skin: Numerous ulcerations noted on her back. G-tube site looks inflamed with exudate surrounding the G-tube insertion site. Minimal fluctuance seen. Neurologic: No obvious focal neurological deficits seen. Psychiatric: Alert and oriented x3 with a euthymic affect. Results & Data Results & Data ([facility]) Vital Signs (Past 12 Hours) Vital Signs Temp Pulse Pulse Resp BP BP Pulse Ox 03/01/22 12:33 36.9 C 117 H 26 H 84/60 L 97 03/01/22 11:41 118 H 24 90/58 L 96 03/01/22 11:25 123 H 24 87/54 L 96 03/01/22 11:20 118 H 26 H 107/44 L 95 03/01/22 11:15 121 H 28 H 97/56 L 94 03/01/22 11:12 122 H 24 94/53 L 96 03/01/22 11:10 122 H 20 104/47 L 95 03/01/22 11:05 117 H 21 103/50 L 95 03/01/22 11:00 118 H 22 77/49 L 95 03/01/22 10:56 123 H 21 90/41 L 94 03/01/22 10:55 126 H 18 94 03/01/22 10:51 127 H 21 79/59 L 94 03/01/22 10:50 128 H 21 94 03/01/22 10:45 126 H 20 94 03/01/22 10:40 127 H 21 94 03/01/22 10:35 124 H 21 75/47 L 94 03/01/22 10:33 36.7 C 132 H 24 80/51 L 94 03/01/22 10:30 128 H 23 94 03/01/22 10:25 129 H 23 94 03/01/22 10:20 132 H 18 94 03/01/22 10:15 132 H 24 80 L 03/01/22 10:10 130 H 25 H 03/01/22 10:05 134 H 26 H 03/01/22 10:00 136 H 27 H 03/01/22 09:56 134 H 9 L 96 03/01/22 08:35 128 H 27 H 03/01/22 08:30 127 H 25 H 111/64 03/01/22 08:25 122 H 26 H 03/01/22 08:22 130 H 22 95 03/01/22 08:20 121 H 27 H 98 03/01/22 08:17 123 H 24 118/68 97 03/01/22 08:15 128 H 24 03/01/22 08:00 125 H 22 03/01/22 07:45 121 H 24 129/80 96 03/01/22 07:33 115 H 24 110/70 98 03/01/22 07:30 120 H 23 97 03/01/22 07:16 36.5 C 117 H 117 H 24 112/77 112/77 96 03/01/22 07:15 116 H 22 112/77 96 03/01/22 07:14 118 H 24 96 Coding Level of Care Code Critical Care 1st 30-74 mins Diagnoses Septic shock A41.9; R65.21 Jaundice R17 Elevated LFTs R79.89 Short gut syndrome K91.2 Cachexia R64 Severe protein-energy malnutrition E43 Gastrointestinal tube present Z93.1 On total parenteral nutrition (TPN) Z78.9 Ascites R18.8 Time Spent (min) 42
[2022-03-01 13:27] LABS: Base Excess VBG -21.9 mEq/L; HCO3 VBG 6 mmol/L; Oxygen Saturation VBG 99.8 %; PCO2 VBG 19 mmHg (38-50); PO2 VBG 114 mmHg
[2022-03-01] MEDS ORDERED: DAPTOmycin 200 MG in SYRINGE 0 ML IV ONE (13:30)
[2022-03-01 13:38] LABS: Fibrinogen 107 mg/dl (184-400); INR 2.1 (0.9-1.1); Prothrombin Time 21.2 Seconds (9.0-12.0)
[2022-03-01] MEDS: buprenorphine HCL 8 MG SUBL SL SCH ×2 (13:54→21:22)
[2022-03-01] MEDS: PIPERACILLIN/TAZOBACTAM 3.375 GM in DEXTROSE 5% 100 ML IV SCH ×2 (13:54→21:23)
--- NOTE | 2022-03-01 13:57 | Electrocardiogram Report ---
Test Reason : Blood Pressure : / mmHG Vent. Rate : 111 BPM Atrial Rate : 111 BPM P-R Int : 126 ms QRS Dur : 070 ms QT Int : 306 ms P-R-T Axes : 059 067 073 degrees QTc Int : 416 ms Poor data quality, interpretation may be adversely affected Sinus tachycardia Low voltage QRS Septal infarct (cited on or before 01-FEB-2022) Abnormal ECG When compared with ECG of 01-FEB-2022 16:41, No significant change was found Confirmed by Kaden Breaux ([id number]) on 03/01/2022 1:56:44 PM Referred By: Confirmed By:Kaden Breaux
[2022-03-01] MEDS ORDERED: PHYTONADIONE 5 MG in DEXTROSE 5% 50 ML IV ONE (14:00)
[2022-03-01] MEDS ORDERED: busPIRone 5 MG TAB PO SCH (14:00)
[2022-03-01 14:12] LABS: Albumin Level 1.8 gm/dl (3.4-5.0); BUN Creatinine Ratio 80.5 (10-20); Bilirubin Direct 4.3 mg/dl (0-0.2); Bilirubin,Total 6.4 mg/dl (0.2-1.0); Creatinine Clr Calc Pharmacy 40.3 ml/min; Est GFR (African American) 91.4 ml/min; Est GFR (Non-African American) 78.9 ml/min; Potassium 3.9 mmol/L (3.5-5.1); Total Protein 4.2 gm/dl (6.0-8.3)
[2022-03-01] MEDS ORDERED: DEXTROSE 10% 1,000 ML IV SCH (14:15)
[2022-03-01] MEDS ORDERED: GLUCAGON FOR INJ 1 MG VIAL SQ PRN (14:15)
[2022-03-01] MEDS ORDERED: DEXTROSE 50% 50 ML SYRINGE IV ONE (14:15)
[2022-03-01] MEDS ORDERED: DEXTROSE 50% 50 ML SYRINGE IV PRN (14:15)
[2022-03-01] MEDS ORDERED: GLUCOSE 40% GEL 15 GM TUBE PO PRN (14:15)
[2022-03-01] MEDS ORDERED: GLUCOSE 10 TABS/TUBE PO PRN (14:15)
[2022-03-01] MEDS ORDERED: CARBOHYDRATES FOR HYPOGLYCEMIA PO PRN (14:15)
[2022-03-01] MEDS ORDERED: SODIUM BICARB 8.4% INJ 50 MEQ/50 ML SYR IV STA (14:16)
[2022-03-01] MEDS ORDERED: STAT IV STA (14:16)
[2022-03-01] MEDS ORDERED: SODIUM BICARBONATE 8.4% 75 MEQ in SODIUM CHLORIDE 0.45 % 1,000 ML IV SCH (14:30)
[2022-03-01] MEDS: ALBUMIN 25% 100 mL 25 GM/100 ML VIAL IV SCH ×2 (14:49→23:31)
[2022-03-01 14:51] LABS: Appearance Urine Cloudy (Clear); Bacteria Urine Automated 4+ (Negative); Blood Urine 2+ (Negative); Color Urine Dark Yellow; Glucose Urine UA Negative (Negative); Ketones Urine Negative (Negative); Leukocyte Esterase Urine Trace (Negative); Nitrite Urine Negative (Negative); Protein Urine Trace (Negative); RBC Urine Automated 0-4 /hpf (0-4); Specific Gravity Urine 1.023 (1.000-1.030); Urobilinogen Urine Negative (Negative)
[2022-03-01 14:58] LABS: Bilirubin Urine 1+ (Negative)
[2022-03-01 15:47] LABS: Hematocrit (blood only) 25.4 % (37-47); Hemoglobin 7.8 g/dL (12.0-16.0); Mean Corpuscular Hgb Conc 30.7 g/dL (32-36); Mean Corpuscular Volume 81.4 fL (80-100); Nucleated RBC # (auto) 0.11 K/uL (0-0); Platelet Count 19 K/uL (130-400); RDW Standard Deviation 50.4 fL (36.4-46.3); Red Blood Count 3.12 M/uL (4.2-5.4); White Blood Count 10.29 K/uL (4.8-10.8)
[2022-03-01 15:48] LABS: ANC (manual) 10.13 K/uL (1.4-6.5); Anisocytosis Present; Echinocytes 1+; Giant Platelets 2+; Metamyelocytes # (manual) 0.16 K/uL (0-0); Metamyelocytes % (manual) 1.6 %; Neutrophils # (manual) 10.13 K/uL (1.4-6.5); Neutrophils % (manual) 98.4 %; Platelet Estimate SIGNIFIC DECREASED (Normal); Polychromasia 1+
--- NOTE | 2022-03-01 15:56 | Surgery Consultation ---
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 Her G-tube does not appear to be infected. CT scan shows ascites but no free air, doubt this is related to intestinal perforation. I have discussed this with critical care attending, they will plan on diagnostic paracentesis once her coagulopathy and thrombocytopenia are corrected. If concern regarding tube, may consider contrasted study as patient stabilizes. If the concern is for leaking, once the patient has improved consider upsizing the G-tube with GI. No surgical intervention indicated at this time. Surgery will follow peripherally, call with questions or concerns (2) Sepsis: (3) Ascites: (4) Short gut syndrome: (5) Thrombocytopenia: (6) Hyperbilirubinemia: History of Present Illness Attending Physician: Eduardo Ibarra MD History of Present Illness 57-year-old female known to general surgery service from prior visits. She presented with failure to thrive and concern for sepsis. He has been admitted to the ICU. There were concerns about her PEG tube that has been in for several years. Her CT scan also revealed some new ascites with no free air of unknown etiology. Patient is lethargic and somewhat responsive to verbal and physical stimuli. Her was able to answer questions. Allergies Allergy/AdvReac Type Severity Reaction Status Date / Time ibuprofen Allergy Intermediate RINGING IN Verified 02/01/22 19:31 EARS,PARTIAL LOSS HEARING ketorolac Allergy Intermediate ROARING Verified 02/01/22 19:31 SOUND IN EARS NSAIDS (Non-Steroidal Allergy Intermediate RINGING IN Verified 02/01/22 19:31 Anti-Inflamma EARS zoledronic acid Allergy Intermediate FLU LIKE Verified 02/01/22 19:31 SYMPTOMS SEVERE HEADACHE vancomycin AdvReac Severe ZACHERY Verified 02/01/22 19:31 SYNDROME alprazolam AdvReac Intermediate LOSS OF Verified 02/01/22 19:31 HEARING aspirin AdvReac Intermediate RINGING IN Verified 02/01/22 19:31 EARS,PARTIAL HEARING LOSS promethazine AdvReac Mild RESTLESS Verified 02/01/22 19:31 LEGS Home Medications Medication Instructions Recorded Confirmed Type buprenorphine HCl 8 mg sublingual 8 mg SUBLINGUAL TID 11/01/20 02/01/22 History tablet cyclobenzaprine 5 mg tablet 5 mg PO DAILY PRN #20 tab 01/04/22 02/01/22 Rx diclofenac sodium 1 % topical gel 4 g TOPICAL QID #300 g 01/04/22 02/01/22 Rx buspirone 10 mg tablet 10 mg PO TID #90 tab 02/10/22 Rx hydroxyzine HCl 25 mg tablet 25 mg PO Q8H PRN #30 tab 02/10/22 Rx melatonin 3 mg tablet 3 mg PO HS #30 tab 02/10/22 Rx potassium chloride 20 mEq oral 20 meq PO DAILY #30 ea 02/10/22 Rx packet Patient History Medical History Anxiety Ascites Chronic pancreatitis Esophageal reflux Gastrointestinal tube present Gastrostomy tube in place Hearing deficit Hypersplenism Infected venous access port Iron deficiency anemia IRON INFUSIONS IN PAST Left ankle sprain Lumbar spinal stenosis Malnutrition Neutropenia On total parenteral nutrition (TPN) 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 Osteoporosis Overdose Peripheral neuropathy Pleural effusion Radiation enterocolitis Septic shock Severe protein-energy malnutrition Short bowel syndrome Short gut syndrome Subclinical hypothyroidism Thoracic compression fracture Urinary incontinence Surgical History History of cholecystectomy History of colonoscopy History of esophagogastroduodenoscopy (EGD) History of kyphoplasty (~2017) History of removal of tunneled central venous catheter (CVC) with port (11/01/21) Removal IV Central Catheter(Not Applicable) - Madhav Harris, DO 0 11/01/21 History of spinal surgery THORACIC AND LUMBAR AREA TUMOR REMOVED 1991 + 1992 - RADIATION 5 WEEKS History of surgery PEG TUBE INSERTION (NOTHING RUNS THROUGH PEG TUBE/USED ONLY FOR RELEASING FOOD PRODUCTS D/T SMALL BOWEL OBSTRUCTION) "PT EATS FOR COMFORT" History of total left hip arthroplasty Port-A-Cath in place BRUNER Status post insertion of percutaneous endoscopic gastrostomy (PEG) tube Family History Mother Diabetes Hypertension Father Family hx of colon cancer Bladder cancer Sister Alcohol abuse Deep vein thrombosis Hypertension Brother Hypertension Grandmother Hypertension Aunt Hypertension Other Cancer Social History Smoking Status: Former smoker Tobacco Type: Cigarettes Age Started Using Tobacco: 12; Age Quit Using Tobacco: 21; Second Hand Exposure: No; Do You Dip or Chew Tobacco: No; Hx Alcohol Use: No Hx Substance Use: No Preferred Language: Togolese Communication Ability: Effective Visual Impairment: No Limitations Wing Coverer Required: No Beliefs That Will Affect Care: None marital status: Current Living Situation: Spouse current occupational status: disabled Other Information That Helps Us Care for You: No Feels Safe at Home: Declines to Answer caffeine: Yes Dental Care, Regularly: Yes Physical Activity Frequency: Does not Exercise Seatbelt Use: always Sunscreen Use: No Assistive Devices: None Review of Systems Review of Systems: All systems reviewed & are unremarkable except as noted in HPI & below Physical Exam Constitutional: + ill appearing and + cachectic Gastrointestinal (Abdomen): Inspection/Auscultation: + abdomen distended (Mild) Percussion/Palpation: abdomen soft; abdomen nontender, no guarding, abdomen not rigid, no hepatosplenomegaly and no hernia G-tube in place with no evidence of current infection. Minimal fibrinous exudate. Results & Data ([facility]) Vital Signs (Past 12 Hours) Vital Signs Temp Pulse Pulse Resp BP BP Pulse Ox 03/01/22 13:15 36.7 C 104 H 27 H 112/65 100 03/01/22 13:00 113 H 31 H 133/82 100 03/01/22 12:45 118 H 45 H 118/60 100 03/01/22 12:33 36.9 C 117 H 26 H 84/60 L 97 03/01/22 12:31 113 H 03/01/22 12:30 117 H 32 H 84/60 L 98 03/01/22 12:16 115 H 31 H 79/42 L 95 03/01/22 12:15 119 H 31 H 95 03/01/22 12:03 118 H 29 H 68/48 L 90 03/01/22 12:00 117 H 34 H 69/49 L 93 03/01/22 11:58 117 H 34 H 92 03/01/22 11:41 118 H 24 90/58 L 96 03/01/22 11:25 123 H 24 87/54 L 96 03/01/22 11:20 118 H 26 H 107/44 L 95 03/01/22 11:15 121 H 28 H 97/56 L 94 03/01/22 11:12 122 H 24 94/53 L 96 03/01/22 11:10 122 H 20 104/47 L 95 03/01/22 11:05 117 H 21 103/50 L 95 03/01/22 11:00 118 H 22 77/49 L 95 03/01/22 10:56 123 H 21 90/41 L 94 03/01/22 10:55 126 H 18 94 03/01/22 10:51 127 H 21 79/59 L 94 03/01/22 10:50 128 H 21 94 03/01/22 10:45 126 H 20 94 03/01/22 10:40 127 H 21 94 03/01/22 10:35 124 H 21 75/47 L 94 03/01/22 10:33 36.7 C 132 H 24 80/51 L 94 03/01/22 10:30 128 H 23 94 03/01/22 10:25 129 H 23 94 03/01/22 10:20 132 H 18 94 03/01/22 10:15 132 H 24 80 L 03/01/22 10:10 130 H 25 H 03/01/22 10:05 134 H 26 H 03/01/22 10:00 136 H 27 H 03/01/22 09:56 134 H 9 L 96 03/01/22 08:35 128 H 27 H 03/01/22 08:30 127 H 25 H 111/64 03/01/22 08:25 122 H 26 H 03/01/22 08:22 130 H 22 95 03/01/22 08:20 121 H 27 H 98 03/01/22 08:17 123 H 24 118/68 97 03/01/22 08:15 128 H 24 03/01/22 08:00 125 H 22 03/01/22 07:45 121 H 24 129/80 96 03/01/22 07:33 115 H 24 110/70 98 03/01/22 07:30 120 H 23 97 03/01/22 07:16 36.5 C 117 H 117 H 24 112/77 112/77 96 03/01/22 07:15 116 H 22 112/77 96 03/01/22 07:14 118 H 24 96 Laboratory Results Laboratory Results - last 24 hr 03/01/22 03/01/22 03/01/22 07:08 07:08 07:08 WBC 8.49 RBC 3.93 L Hgb 9.7 L Hct 31.6 L MCV 80.4 MCH 24.7 L MCHC 30.7 L RDW Std Deviation 47.7 H RDW Coeff of Esau 16.3 H Plt Count 13 L* Absolute Nucleated RBC 0.02 H Nucleated RBC % (auto) 0.2 Neutrophils % (Manual) 100.0 Lymphocytes % (Manual) Metamyelocytes % (Man) Neutrophils # (Manual) 8.49 H Total Absolute Neuts 8.49 H Total Abs Lymphocytes 0.00 L Metamyelocytes # (Man) Dohle Bodies 1+ Platelet Estimate SIGNIFIC DECREASED Giant Platelets Polychromasia Hypochromasia Present Anisocytosis Echinocytes 1+ Peripher Smr Path Cons PT 18.4 H INR 1.8 H APTT 35.2 H PTT Ratio 1.3 Fibrinogen VBG pH VBG pCO2 VBG pO2 VBG HCO3 VBG O2 Saturation VBG Base Excess Sodium 146 H Potassium 4.6 Chloride 127 H Carbon Dioxide 14 L Anion Gap 5 BUN 68 H Creatinine 0.72 Est Cr Clr Drug Dosing 45.8 Est GFR ( Amer) 107.0 Est GFR (Non-Af Amer) 92.3 BUN/Creatinine Ratio 94.4 H Glucose 137 H POC Glucose Lactate Calcium 8.1 L Magnesium 2.2 Total Bilirubin 7.0 H Direct Bilirubin GGT AST 36 ALT 40 Alkaline Phosphatase 424 H Ammonia Troponin I High Sens 65.8 H* D Total Protein 5.7 L Albumin 2.3 L Globulin 3.4 Albumin/Globulin Ratio 0.7 L Procalcitonin TSH Random Cortisol Urine Color Urine Appearance Urine pH Ur Specific [place] Urine Protein Urine Glucose (UA) Urine Ketones Urine Blood Urine Nitrite Urine Bilirubin Urine Urobilinogen Ur Leukocyte Esterase Urine WBC (Auto) Urine RBC (Auto) U Hyaline Cast (Auto) U Epithel Cells (Auto) Urine Bacteria (Auto) Granular Casts Urine Yeast Nasal Screen MRSA (PCR) SARS-CoV-2, RNA, NAAT Blood Type Antibody Screen 03/01/22 03/01/22 03/01/22 07:08 07:27 08:10 WBC RBC Hgb Hct MCV MCH MCHC RDW Std Deviation RDW Coeff of Esau Plt Count Absolute Nucleated RBC Nucleated RBC % (auto) Neutrophils % (Manual) Lymphocytes % (Manual) Metamyelocytes % (Man) Neutrophils # (Manual) Total Absolute Neuts Total Abs Lymphocytes Metamyelocytes # (Man) Dohle Bodies Platelet Estimate Giant Platelets Polychromasia Hypochromasia Anisocytosis Echinocytes Peripher Smr Path Cons PT INR APTT PTT Ratio Fibrinogen VBG pH VBG pCO2 VBG pO2 VBG HCO3 VBG O2 Saturation VBG Base Excess Sodium Potassium Chloride Carbon Dioxide Anion Gap BUN Creatinine Est Cr Clr Drug Dosing Est GFR ( Amer) Est GFR (Non-Af Amer) BUN/Creatinine Ratio Glucose POC Glucose Lactate 1.8 Calcium Magnesium Total Bilirubin Direct Bilirubin GGT AST ALT Alkaline Phosphatase Ammonia Troponin I High Sens Total Protein Albumin Globulin Albumin/Globulin Ratio Procalcitonin 33.00 H TSH Random Cortisol Urine Color Urine Appearance Urine pH Ur Specific [place] Urine Protein Urine Glucose (UA) Urine Ketones Urine Blood Urine Nitrite Urine Bilirubin Urine Urobilinogen Ur Leukocyte Esterase Urine WBC (Auto) Urine RBC (Auto) U Hyaline Cast (Auto) U Epithel Cells (Auto) Urine Bacteria (Auto) Granular Casts Urine Yeast Nasal Screen MRSA (PCR) SARS-CoV-2, RNA, NAAT NEGATIVE Blood Type Antibody Screen 03/01/22 03/01/22 03/01/22 08:12 12:30 12:57 WBC RBC Hgb Hct MCV MCH MCHC RDW Std Deviation RDW Coeff of Esau Plt Count Absolute Nucleated RBC Nucleated RBC % (auto) Neutrophils % (Manual) Lymphocytes % (Manual) Metamyelocytes % (Man) Neutrophils # (Manual) Total Absolute Neuts Total Abs Lymphocytes Metamyelocytes # (Man) Dohle Bodies Platelet Estimate Giant Platelets Polychromasia Hypochromasia Anisocytosis Echinocytes Peripher Smr Path Cons PT 21.2 H INR 2.1 H APTT PTT Ratio Fibrinogen 107 L VBG pH VBG pCO2 VBG pO2 VBG HCO3 VBG O2 Saturation VBG Base Excess Sodium Potassium Chloride Carbon Dioxide Anion Gap BUN Creatinine Est Cr Clr Drug Dosing Est GFR ( Amer) Est GFR (Non-Af Amer) BUN/Creatinine Ratio Glucose POC Glucose Lactate Calcium Magnesium Total Bilirubin Direct Bilirubin GGT AST ALT Alkaline Phosphatase Ammonia Troponin I High Sens Total Protein Albumin Globulin Albumin/Globulin Ratio Procalcitonin TSH Random Cortisol Urine Color Urine Appearance Urine pH Ur Specific [place] Urine Protein Urine Glucose (UA) Urine Ketones Urine Blood Urine Nitrite Urine Bilirubin Urine Urobilinogen Ur Leukocyte Esterase Urine WBC (Auto) Urine RBC (Auto) U Hyaline Cast (Auto) U Epithel Cells (Auto) Urine Bacteria (Auto) Granular Casts Urine Yeast Nasal Screen MRSA (PCR) Negative SARS-CoV-2, RNA, NAAT Blood Type A Positive Antibody Screen NEGATIVE 03/01/22 03/01/22 03/01/22 12:57 13:11 13:11 WBC RBC Hgb Hct MCV MCH MCHC RDW Std Deviation RDW Coeff of Esau Plt Count Absolute Nucleated RBC Nucleated RBC % (auto) Neutrophils % (Manual) Lymphocytes % (Manual) Metamyelocytes % (Man) Neutrophils # (Manual) Total Absolute Neuts Total Abs Lymphocytes Metamyelocytes # (Man) Dohle Bodies Platelet Estimate Giant Platelets Polychromasia Hypochromasia Anisocytosis Echinocytes Peripher Smr Path Cons PT INR APTT PTT Ratio Fibrinogen VBG pH VBG pCO2 VBG pO2 VBG HCO3 VBG O2 Saturation VBG Base Excess Sodium 145 Potassium 3.9 Chloride 125 H Carbon Dioxide 9 L* Anion Gap 11 BUN 66 H Creatinine 0.82 Est Cr Clr Drug Dosing 40.3 Est GFR ( Amer) 91.4 Est GFR (Non-Af Amer) 78.9 BUN/Creatinine Ratio 80.5 H Glucose 19 L* POC Glucose Lactate 5.7 H* Calcium 8.0 L Magnesium Total Bilirubin 6.4 H Cancelled Direct Bilirubin 4.3 H Cancelled GGT AST 33 Cancelled ALT 31 Cancelled Alkaline Phosphatase 669 H Cancelled Ammonia Troponin I High Sens Total Protein 4.2 L D Cancelled Albumin 1.8 L Cancelled Globulin Albumin/Globulin Ratio Procalcitonin TSH Random Cortisol Urine Color Urine Appearance Urine pH Ur Specific [place] Urine Protein Urine Glucose (UA) Urine Ketones Urine Blood Urine Nitrite Urine Bilirubin Urine Urobilinogen Ur Leukocyte Esterase Urine WBC (Auto) Urine RBC (Auto) U Hyaline Cast (Auto) U Epithel Cells (Auto) Urine Bacteria (Auto) Granular Casts Urine Yeast Nasal Screen MRSA (PCR) SARS-CoV-2, RNA, NAAT Blood Type Antibody Screen 03/01/22 03/01/22 03/01/22 13:13 13:14 13:14 WBC RBC Hgb Hct MCV MCH MCHC RDW Std Deviation RDW Coeff of Esau Plt Count Absolute Nucleated RBC Nucleated RBC % (auto) Neutrophils % (Manual) Lymphocytes % (Manual) Metamyelocytes % (Man) Neutrophils # (Manual) Total Absolute Neuts Total Abs Lymphocytes Metamyelocytes # (Man) Dohle Bodies Platelet Estimate Giant Platelets Polychromasia Hypochromasia Anisocytosis Echinocytes Peripher Smr Path Cons PT INR APTT PTT Ratio Fibrinogen VBG pH 7.10 L VBG pCO2 19 L VBG pO2 114 VBG HCO3 6 VBG O2 Saturation 99.8 VBG Base Excess -21.9 Sodium Potassium Chloride Carbon Dioxide Anion Gap BUN Creatinine Est Cr Clr Drug Dosing Est GFR ( Amer) Est GFR (Non-Af Amer) BUN/Creatinine Ratio Glucose POC Glucose Lactate Calcium Magnesium Total Bilirubin Direct Bilirubin GGT AST ALT Alkaline Phosphatase Ammonia Troponin I High Sens Total Protein Albumin Globulin Albumin/Globulin Ratio Procalcitonin TSH 1.633 Random Cortisol > 60.00 Urine Color Urine Appearance Urine pH Ur Specific [place] Urine Protein Urine Glucose (UA) Urine Ketones Urine Blood Urine Nitrite Urine Bilirubin Urine Urobilinogen Ur Leukocyte Esterase Urine WBC (Auto) Urine RBC (Auto) U Hyaline Cast (Auto) U Epithel Cells (Auto) Urine Bacteria (Auto) Granular Casts Urine Yeast Nasal Screen MRSA (PCR) SARS-CoV-2, RNA, NAAT Blood Type Antibody Screen 03/01/22 03/01/22 03/01/22 14:06 14:17 14:41 WBC RBC Hgb Hct MCV MCH MCHC RDW Std Deviation RDW Coeff of Esau Plt Count Absolute Nucleated RBC Nucleated RBC % (auto) Neutrophils % (Manual) Lymphocytes % (Manual) Metamyelocytes % (Man) Neutrophils # (Manual) Total Absolute Neuts Total Abs Lymphocytes Metamyelocytes # (Man) Dohle Bodies Platelet Estimate Giant Platelets Polychromasia Hypochromasia Anisocytosis Echinocytes Peripher Smr Path Cons PT INR APTT PTT Ratio Fibrinogen VBG pH VBG pCO2 VBG pO2 VBG HCO3 VBG O2 Saturation VBG Base Excess Sodium Potassium Chloride Carbon Dioxide Anion Gap BUN Creatinine Est Cr Clr Drug Dosing Est GFR ( Amer) Est GFR (Non-Af Amer) BUN/Creatinine Ratio Glucose POC Glucose 11 L* 124 H Lactate Calcium Magnesium Total Bilirubin Direct Bilirubin GGT AST ALT Alkaline Phosphatase Ammonia Troponin I High Sens Total Protein Albumin Globulin Albumin/Globulin Ratio Procalcitonin TSH Random Cortisol Urine Color Dark Yellow Urine Appearance Cloudy A Urine pH 5.0 Ur Specific [place] 1.023 Urine Protein Trace H Urine Glucose (UA) Negative Urine Ketones Negative Urine Blood 2+ H Urine Nitrite Negative Urine Bilirubin 1+ H Urine Urobilinogen Negative Ur Leukocyte Esterase Trace H Urine WBC (Auto) 5-10 H Urine RBC (Auto) 0-4 U Hyaline Cast (Auto) 5-10 H U Epithel Cells (Auto) 10-20 H Urine Bacteria (Auto) 4+ H Granular Casts 5-10 H Urine Yeast Not Reportable Nasal Screen MRSA (PCR) SARS-CoV-2, RNA, NAAT Blood Type Antibody Screen 03/01/22 03/01/22 03/01/22 15:08 15:08 15:08 WBC 10.29 RBC 3.12 L Hgb 7.8 L Hct 25.4 L MCV 81.4 MCH 25.0 MCHC 30.7 L RDW Std Deviation 50.4 H RDW Coeff of Esau 17.0 H Plt Count 19 L* Absolute Nucleated RBC 0.11 H Nucleated RBC % (auto) 1.0 Neutrophils % (Manual) 98.4 Lymphocytes % (Manual) 0.0 Metamyelocytes % (Man) 1.6 Neutrophils # (Manual) 10.13 H Total Absolute Neuts 10.13 H Total Abs Lymphocytes 0.00 L Metamyelocytes # (Man) 0.16 H Dohle Bodies Platelet Estimate SIGNIFIC DECREASED Giant Platelets 2+ Polychromasia 1+ Hypochromasia Anisocytosis Present Echinocytes 1+ Peripher Smr Path Cons PT INR APTT PTT Ratio Fibrinogen VBG pH VBG pCO2 VBG pO2 VBG HCO3 VBG O2 Saturation VBG Base Excess Sodium Potassium Chloride Carbon Dioxide Anion Gap BUN Creatinine Est Cr Clr Drug Dosing Est GFR ( Amer) Est GFR (Non-Af Amer) BUN/Creatinine Ratio Glucose POC Glucose Lactate Calcium Magnesium Total Bilirubin Direct Bilirubin GGT AST ALT Alkaline Phosphatase Ammonia 30.0 Troponin I High Sens Pending Total Protein Albumin Globulin Albumin/Globulin Ratio Procalcitonin TSH Random Cortisol Urine Color Urine Appearance Urine pH Ur Specific [place] Urine Protein Urine Glucose (UA) Urine Ketones Urine Blood Urine Nitrite Urine Bilirubin Urine Urobilinogen Ur Leukocyte Esterase Urine WBC (Auto) Urine RBC (Auto) U Hyaline Cast (Auto) U Epithel Cells (Auto) Urine Bacteria (Auto) Granular Casts Urine Yeast Nasal Screen MRSA (PCR) SARS-CoV-2, RNA, NAAT Blood Type Antibody Screen 03/01/22 03/01/22 03/01/22 15:08 15:08 15:26 WBC RBC Hgb Hct MCV MCH MCHC RDW Std Deviation RDW Coeff of Esau Plt Count Absolute Nucleated RBC Nucleated RBC % (auto) Neutrophils % (Manual) Lymphocytes % (Manual) Metamyelocytes % (Man) Neutrophils # (Manual) Total Absolute Neuts Total Abs Lymphocytes Metamyelocytes # (Man) Dohle Bodies Platelet Estimate Giant Platelets Polychromasia Hypochromasia Anisocytosis Echinocytes Peripher Smr Path Cons PT INR APTT PTT Ratio Fibrinogen VBG pH VBG pCO2 VBG pO2 VBG HCO3 VBG O2 Saturation VBG Base Excess Sodium Potassium Chloride Carbon Dioxide Anion Gap BUN Creatinine Est Cr Clr Drug Dosing Est GFR ( Amer) Est GFR (Non-Af Amer) BUN/Creatinine Ratio Glucose POC Glucose 68 L* Lactate Pending Calcium Magnesium Total Bilirubin Direct Bilirubin GGT Pending AST ALT Alkaline Phosphatase Ammonia Troponin I High Sens Total Protein Albumin Globulin Albumin/Globulin Ratio Procalcitonin TSH Random Cortisol Urine Color Urine Appearance Urine pH Ur Specific [place] Urine Protein Urine Glucose (UA) Urine Ketones Urine Blood Urine Nitrite Urine Bilirubin Urine Urobilinogen Ur Leukocyte Esterase Urine WBC (Auto) Urine RBC (Auto) U Hyaline Cast (Auto) U Epithel Cells (Auto) Urine Bacteria (Auto) Granular Casts Urine Yeast Nasal Screen MRSA (PCR) SARS-CoV-2, RNA, NAAT Blood Type Antibody Screen 03/01/22 15:28 WBC RBC Hgb Hct MCV MCH MCHC RDW Std Deviation RDW Coeff of Esau Plt Count Absolute Nucleated RBC Nucleated RBC % (auto) Neutrophils % (Manual) Lymphocytes % (Manual) Metamyelocytes % (Man) Neutrophils # (Manual) Total Absolute Neuts Total Abs Lymphocytes Metamyelocytes # (Man) Dohle Bodies Platelet Estimate Giant Platelets Polychromasia Hypochromasia Anisocytosis Echinocytes Peripher Smr Path Cons PT INR APTT PTT Ratio Fibrinogen VBG pH VBG pCO2 VBG pO2 VBG HCO3 VBG O2 Saturation VBG Base Excess Sodium Potassium Chloride Carbon Dioxide Anion Gap BUN Creatinine Est Cr Clr Drug Dosing Est GFR ( Amer) Est GFR (Non-Af Amer) BUN/Creatinine Ratio Glucose POC Glucose 70 Lactate Calcium Magnesium Total Bilirubin Direct Bilirubin GGT AST ALT Alkaline Phosphatase Ammonia Troponin I High Sens Total Protein Albumin Globulin Albumin/Globulin Ratio Procalcitonin TSH Random Cortisol Urine Color Urine Appearance Urine pH Ur Specific [place] Urine Protein Urine Glucose (UA) Urine Ketones Urine Blood Urine Nitrite Urine Bilirubin Urine Urobilinogen Ur Leukocyte Esterase Urine WBC (Auto) Urine RBC (Auto) U Hyaline Cast (Auto) U Epithel Cells (Auto) Urine Bacteria (Auto) Granular Casts Urine Yeast Nasal Screen MRSA (PCR) SARS-CoV-2, RNA, NAAT Blood Type Antibody Screen Diagnostic Findings Personally reviewed and interpreted the CT scan and note the ascites with no localized inflammation at the G-tube site, and no evidence of free air. CT abd pelvis IV con only CLINICAL HISTORY: abd pain TECHNIQUE: Helical axial images of the abdomen and pelvis were obtained and displayed. Automated dose lowering techniques and/or adjustment according to patient size were utilized for this exam. This exam was performed with intravenous contrast. CT DOSE: 329.03 mGy.cm COMPARISON: Comparison is made to CT abdomen pelvis 02/01/2022 FINDINGS: Lower chest: Airspace opacity is noted in the right middle lobe. There are small bilateral pleural effusions, right greater than left. Liver: Unremarkable. No focal lesions are seen. Gallbladder and biliary tree: Patient is status post cholecystectomy. No intra- or extrahepatic biliary ductal dilation. Pancreas: Unremarkable, no focal lesions. Spleen: Splenomegaly is noted, the spleen measures 12 cm. Adrenals: Unremarkable. Kidneys and ureters: Unremarkable. Bladder: Unremarkable. Reproductive organs: Unremarkable. Bowel: A gastrostomy tube is seen. No bowel obstruction is seen. Edema in the bowel wall is noted which may be secondary to ascites. Lymph nodes Retroperitoneal: Unremarkable. Mesenteric: Unremarkable. Pelvic: Unremarkable. Peritoneum: Moderate ascites is seen. Vessels: Atherosclerotic calcifications are seen. Abdominal wall: Cachexia is noted. Bones: Left total hip arthroplasty is seen. Sclerotic focus in the right 11th rib is unchanged. Degenerative changes are seen in the spine with multilevel compression deformities. IMPRESSION: 1. Interval development of moderate ascites, of unknown etiology. 2. Compared to prior exam, bowel loops are no longer dilated. 3. Cachexia is noted. PG Care Time/CCT Total # of Minutes Spent Total Time Spent with Patient: Total time spent is greater than 50% in coordination of care (as documented) at patient's floor/unit and/or counseling patient: Coding Level of Care Code 76528 Inpt Consult Level 4 Diagnoses Sepsis A41.9; R65.20 Sepsis acute organ dysfunction status: with acute organ dysfunction Sepsis type: sepsis due to unspecified organism Severe sepsis acute organ dysfunction type: unspecified Severe sepsis shock status: unspecified Ascites R18.8 Short gut syndrome K91.2 Thrombocytopenia D69.6 Hyperbilirubinemia E80.6 Gastrointestinal tube present Z93.1 (1) Sepsis Sepsis acute organ dysfunction status: with acute organ dysfunction Sepsis type: sepsis due to unspecified organism Severe sepsis acute organ dysfunction type: unspecified Severe sepsis shock status: unspecified Qualified Code(s): A41.9 - Sepsis, unspecified organism; R65.20 - Severe sepsis without septic shock
[2022-03-01] MEDS ORDERED: NOREPINEPHRINE/D5W 4 MG/250 ML PLCT IV SCH (16:30)
[2022-03-01] MEDS: HYDROCORTISONE SOD 50 MG in SYRINGE 0 ML IV SCH ×2 (17:04→21:18)
--- NOTE | 2022-03-01 18:15 | Procedure Note ---
Procedure Note Date of Service March 01, 2022 Note ARTERIAL LINE PROCEDURE NOTE: Procedure: Arterial Line Placement Indication: Monitoring on Pressors Anesthesia: None/5 mL lidocaine 1% Procedure was done emergently due to the need for hemodynamic monitoring and septic shock. A time-out was completed verifying correct patient, procedure, site, positioning, and implant(s) or special equipment if applicable. Patients left wrist was prepped and draped in the usual sterile fashion. Ultrasound guidance was used to aid needle placement. A 20g Arrow arterial line was introduced into the left radial artery. Catheter was threaded, and the needle was removed with appropriate blood return. Good waveform was observed. The patient tolerated the procedure well. Blood Loss: Minimal Complications: None Coding CPT Codes Tubes, Drains, and Vasc Access - Tubes, Drains, and Vasc Access: [id number] Ultrasound Guidance For Vascular ([id number]) Tubes, Drains, and Vasc Access - Tubes, Drains, and Vasc Access: [id number] Place Catheter In Artery ([id number]) [facility] [place] Procedure Codes (Charges) Tubes, Drains, and Vasc Access Procedure 1: Tubes, Drains, and Vasc Access: [id number] Ultrasound Guidance For Vascular Procedure 2: Tubes, Drains, and Vasc Access: [id number] Place Catheter In Artery
[2022-03-01] MEDS: VASOPRESSIN 20 UNITS in 0.9 % SODIUM CHLORIDE 100 ML IV SCH (18:27)
[2022-03-01] MEDS ORDERED: Nursing to Pharmacy Communication SCH (18:30)
[2022-03-01 18:42] LABS: iSTAT Art Bld Gas pCO2 Correct 19 mmHg (35-46); iSTAT Art Bld Gas pH Corrected 7.253 (7.35-7.45); iSTAT Arterial Blood Gas HCO3 8 meg/L (19-24); iSTAT Arterial Blood Gas pCO2 19 mmHg (35-46); iSTAT Arterial Blood Gas pH 7.25 (7.35-7.45); iSTAT Arterial Blood Gas pO2 60 mmHg (80-95); iSTAT Arterial Blood Gas pO2 C 59; iSTAT Carbon Dioxide 9 mmol/L (24-31); iSTAT Hematocrit 23 % (37-47); iSTAT Hemoglobin 7.8 g/dl (12.0-16.0); iSTAT Potassium 3.8 mmol/L (3.3-5.0); iSTAT Site Art Line; iSTAT Sodium 146 mmol/L (135-144)
[2022-03-01] MEDS: SODIUM BICARB 8.4% INJ 50 MEQ/50 ML SYR IV STA ×2 (18:44→19:04)
[2022-03-01] MEDS ORDERED: MELATONIN 3 MG TAB PO SCH (21:00)
[2022-03-01 23:30] LABS: BUN Creatinine Ratio 59.6 (10-20); Calcium 7.7 mg/dl (8.5-10.1); Creatinine Clr Calc Pharmacy 30.3 ml/min; Est GFR (African American) 64.8 ml/min; Est GFR (Non-African American) 55.9 ml/min; Potassium 3.6 mmol/L (3.5-5.1)
[2022-03-01 23:35] LABS: Hematocrit (blood only) 29.9 % (37-47); Hemoglobin 9.7 g/dL (12.0-16.0); Mean Corpuscular Hemoglobin 26.4 pg (25-34); Mean Corpuscular Hgb Conc 32.4 g/dL (32-36); Mean Corpuscular Volume 81.5 fL (80-100); Nucleated RBC # (auto) 0.13 K/uL (0-0); Nucleated RBC % (auto) 0.4 %; Platelet Count 8 K/uL (130-400); RDW Coefficient of Variation 16.1 % (11.5-14.5); RDW Standard Deviation 48.6 fL (36.4-46.3); Red Blood Count 3.67 M/uL (4.2-5.4); White Blood Count 32.69 K/uL (4.8-10.8)
[2022-03-01 23:42] LABS: Platelet Estimate SIGNIFIC DECREASED (Normal)
[2022-03-02] MEDS ORDERED: TPN/PPN CONSULT PHARMACY PRN (00:01)
[2022-03-02] MEDS: VASOPRESSIN 20 UNITS in 0.9 % SODIUM CHLORIDE 100 ML IV SCH (02:07)
[2022-03-02] MEDS: PHENYLEPHRINE HCL 20 MG in DEXTROSE 5% 500 ML IV SCH ×2 (02:08→09:33)
[2022-03-02] MEDS: HYDROCORTISONE SOD 50 MG in SYRINGE 0 ML IV SCH (02:09)
[2022-03-02] MEDS ORDERED: SODIUM BICARBONATE 8.4% 150 MEQ in SODIUM CHLORIDE 0.45 % 1,000 ML IV SCH (03:05)
[2022-03-02] MEDS ORDERED: STAT IV STA (03:07)
[2022-03-02] MEDS ORDERED: SODIUM BICARBONATE 8.4% 150 MEQ in DEXTROSE 5% 1,000 ML IV SCH (03:15)
[2022-03-02] MEDS ORDERED: fentaNYL citrate 100 MCG/2 ML VIAL IV ONE ×2 (03:26→04:25)
[2022-03-02] MEDS ORDERED: fentaNYL citrate 100 MCG/2 ML VIAL ONE (03:29)
[2022-03-02 04:08] LABS: iSTAT Art Bld Gas pCO2 Correct 25 mmHg (35-46); iSTAT Art Bld Gas pH Corrected 7.339 (7.35-7.45); iSTAT Arterial Blood Gas HCO3 14 meg/L (19-24); iSTAT Arterial Blood Gas pCO2 26 mmHg (35-46); iSTAT Arterial Blood Gas pH 7.33 (7.35-7.45); iSTAT Arterial Blood Gas pO2 45 mmHg (80-95); iSTAT Arterial Blood Gas pO2 C 42; iSTAT Carbon Dioxide 14 mmol/L (24-31); iSTAT Hematocrit 26 % (37-47); iSTAT Hemoglobin 8.8 g/dl (12.0-16.0); iSTAT Potassium 3.4 mmol/L (3.3-5.0); iSTAT Site Art Line; iSTAT Sodium 145 mmol/L (135-144)
[2022-03-02 04:28] LABS: Albumin Level 2.4 gm/dl (3.4-5.0); BUN Creatinine Ratio 60.6 (10-20); Bilirubin Direct 5.5 mg/dl (0-0.2); Bilirubin,Total 9.2 mg/dl (0.2-1.0); Calcium 7.4 mg/dl (8.5-10.1); Creatinine Clr Calc Pharmacy 30.3 ml/min; Est GFR (African American) 64.8 ml/min; Est GFR (Non-African American) 55.9 ml/min; Magnesium 1.6 mg/dl (1.7-2.4); Phosphorus 3.7 mg/dl (2.5-4.9); Potassium 3.4 mmol/L (3.5-5.1); Total Protein 4.4 gm/dl (6.0-8.3)
[2022-03-02 04:31] LABS: Hematocrit (blood only) 26.3 % (37-47); Hemoglobin 8.6 g/dL (12.0-16.0); Mean Corpuscular Hemoglobin 26.2 pg (25-34); Mean Corpuscular Hgb Conc 32.7 g/dL (32-36); Mean Corpuscular Volume 80.2 fL (80-100); Nucleated RBC # (auto) 0.06 K/uL (0-0); Nucleated RBC % (auto) 0.3 %; Platelet Count 7 K/uL (130-400); RDW Coefficient of Variation 15.8 % (11.5-14.5); RDW Standard Deviation 46.4 fL (36.4-46.3); Red Blood Count 3.28 M/uL (4.2-5.4); White Blood Count 22.82 K/uL (4.8-10.8)
[2022-03-02 04:35] LABS: ALC (manual) 0.39 K/uL (1.2-3.4); ANC (manual) 22.04 K/uL (1.4-6.5); Dohle Bodies 1+; Echinocytes 1+; Lymphocytes # (manual) 0.39 K/uL (1.2-3.4); Lymphocytes % (manual) 1.7 %; Monocytes # (manual) 0.39 K/uL (0.11-0.59); Monocytes % (manual) 1.7 %; Neutrophils # (manual) 22.04 K/uL (1.4-6.5); Neutrophils % (manual) 96.6 %; Platelet Estimate SIGNIFIC DECREASED (Normal)
[2022-03-02] MEDS: PIPERACILLIN/TAZOBACTAM 3.375 GM in DEXTROSE 5% 100 ML IV SCH (05:22)
[2022-03-02] MEDS: MAGNESIUM SULFATE / D5W 1 GM/100 ML BAG IV SCH ×3 (06:39→11:19)
[2022-03-02] MEDS: ALBUMIN 25% 100 mL 25 GM/100 ML VIAL IV SCH (06:39)
[2022-03-02] MEDS: POTASSIUM CHLORIDE / WTR 20 MEQ/100 ML PLCT IV SCH ×2 (06:40→08:55)
[2022-03-02 07:51] LABS: Fibrinogen 142 mg/dl (184-400); INR 2.2 (0.9-1.1); Prothrombin Time 22.4 Seconds (9.0-12.0)
--- NOTE | 2022-03-02 08:02 | Critical Care Progress Note ---
Date of Service March 02, 2022 Assessment & Plan (1) Septic shock: (2) Jaundice: (3) Elevated LFTs: (4) Short gut syndrome: (5) Cachexia: (6) Severe protein-energy malnutrition: (7) Gastrointestinal tube present: (8) On total parenteral nutrition (TPN): (9) Ascites: (10) Hypocalcemia: (11) Thrombocytopenia: (12) Hypoglycemia: Plan: 57-year-old female with a past medical history of radiation proctitis, short gut syndrome, chronic TPN use, chronic pancreatitis and chronic pain syndrome who presented to the ER and was found to have septic shock. Neurologic: Metabolic encephalopathy is improving. Patient complaining of pain. We will restart her on her home doses of Suboxone. We will also restart as needed Flexeril. Pulmonary: Work of breathing improved with improving acidosis. She does have some mild hypoxemia today likely related to volume overload. We will continue to monitor closely. Consider low-dose IV diuretic. Cardiovascular: Hypotension improving with colloid and crystalloid infusions. Troponin elevated likely due to demand ischemia. We will continue to trend troponin. Maintain mean arterial pressures above 65. Continue low-dose Levophed and vasopressin. Stress dose steroids weaned to 50 mg 3 times daily from every 6 hours. Left radial arterial line removed as the fingertips of the left hand appear dusky and cool to touch. Gastrointestinal: Patient with a history of short gut. Transaminitis noted with an elevated T bili and alk phos. She has a history of cholecystectomy. CT abdomen with moderate ascites seen. The G-tube insertion site appears infected. Will consult general surgery. No surgical intervention per general surgery. We will hold off on paracentesis until platelet count is above 50,000 and INR is below 2. Will discuss with nutrition with regards to possible PPN versus the slow rate of tube feeds. The reinitiation of TPN would need a dedicated line given that she is growing gram-negative rods in her blood cultures. Alkaline phosphatase improved. T bili remains elevated. Likely related to shock liver and side effects from TPN. Renal: Juarez catheter in place with adequate urine output. Continue monitoring urine output closely. Replace electrolytes as needed. Continue bicarbonate infusion given severe acidosis. Lactic acidosis due to liver failure and sepsis. Infectious disease: Patient is essentially immunocompromised due to her severe protein malnutrition. Daptomycin and Zosyn ordered. Caspofungin ordered as well given a history of fungemia. Gram-negative rods noted on 1 cultures. PEG tube and ascites may be the source of infection. Jaime catheter may also be a source of infection although with no obvious fluctuance or inflammation noted around the catheter site. TPN will need to be held off until clearance of cultures. Hematologic: Patient with profound thrombocytopenia likely consumptive coagulopathy in the setting of sepsis. She is status post pooled platelet transfusion. Receiving additional unit of platelets this morning. Fibrinogen and INR pending. Hematology consult pending. Vitamin K given yesterday due to elevated INR which is likely reflection of malnutrition. Endocrine: TSH within normal limits. Patient had profound hypoglycemia yesterday with a plasma glucose of 11. This was likely due to sepsis and failure to thrive. D10 infusion discontinued. Continue D5 with bicarbonate. Continue stress dose steroids and wean to 50 mg 3 times daily. Lines and tubes: Peripheral IVs placed 03/01/2022. Juarez catheter placed 03/01/2022. Right-sided Jaime catheter in place. VTE prophylaxis: SCDs. CODE STATUS: Extensive discussion yesterday with patient's son, mother and . They all agree that the patient's wishes would likely be DNR/DNI. We will continue critical care services. Family at bedside: updated at bedside Disposition: ICU I have personally spent 39 minutes of critical care time in the direct management of this patient. This is a life/limb threatening event. This includes time spent evaluating patient, direct bedside care, chart review, placing orders, interpretation of diagnostic studies, discussion with consultants, patient, and family members, as well as other required patient management activities. This time is exclusive of all separately billable procedures, and teaching time and separate from and in addition to any other critical care service time. Thank you for allowing us to participate in the care of this patient. Admission and Anticipated Discharge Date Admission Date: March 01, 2022 Subjective The patient has done remarkably well overnight despite the underlying issues. She remains on low-dose vasopressors which have markedly decreased compared to yesterday. She also remains on a bicarb infusion. She is more awake and alert today. She notes that she has pain "all over". No significant fevers overnight. She does have periods of mild hypothermia. Her is at bedside. No further episodes of hypoglycemia overnight. Review of Systems Review of Systems: All systems reviewed & are unremarkable except as noted in HPI & below Physical Exam Physical Exam: Constitutional: Cachectic and frail appearing female in milddistress. Eyes: Pupils are equal round and reactive to light. Conjunctivae are normal. Anicteric sclera. Ears nose, mouth and throat: Bitemporal wasting. Neck: Trachea is midline. Visual inspection is normal. Respiratory: Coarse lung sounds bilaterally with mildly increased work of breathing. Cardiovascular: Tachycardic. No murmur. No edema. Left hand and fingers appear dusky. Gastrointestinal: Numerous old healed scars noted on the abdomen. Abdomen tender to palpation. Musculoskeletal: No cyanosis. Patient is able to move all extremities. Skin: Numerous ulcerations noted on her back. G-tube site looks inflamed with exudate surrounding the G-tube insertion site. Nofluctuance seen. Neurologic: No obvious focal neurological deficits seen. Psychiatric: Alert and oriented x3 with a euthymic affect. Results & Data Results & Data ([facility]) Vital Signs (Past 12 Hours) Vital Signs Temp Pulse Resp BP Pulse Ox 03/02/22 03:55 36.1 C L 87 25 H 88 L 03/02/22 03:50 36.1 C L 84 24 87 L 03/02/22 03:45 36.1 C L 84 26 H 90 03/02/22 03:40 36.1 C L 90 13 89 L 03/02/22 03:35 36.1 C L 84 20 89 L 03/02/22 03:30 36.1 C L 88 17 103/67 89 L 03/02/22 03:25 36.1 C L 85 22 88 L 03/02/22 03:20 36.1 C L 88 22 89 L 03/02/22 03:15 36.1 C L 89 18 86 L 03/02/22 03:10 36.2 C L 86 18 90 03/02/22 03:05 36.2 C L 92 H 19 91 03/02/22 03:00 36.2 C L 89 20 116/62 88 L 03/02/22 02:55 36.2 C L 92 H 20 90 03/02/22 02:50 36.2 C L 83 17 90 03/02/22 02:45 36.2 C L 83 21 106/63 90 03/02/22 02:40 36.2 C L 87 21 93 03/02/22 02:35 36.2 C L 74 16 93 03/02/22 02:30 36.2 C L 72 16 92 03/02/22 02:25 36.2 C L 71 15 93 03/02/22 02:20 36.2 C L 85 21 92 03/02/22 02:15 36.3 C L 80 19 93 03/02/22 02:10 36.3 C L 78 25 H 94 03/02/22 02:05 36.3 C L 67 14 94 03/02/22 02:00 36.3 C L 69 15 93 03/02/22 01:55 36.3 C L 69 15 93 03/02/22 01:50 36.3 C L 74 19 92 03/02/22 01:45 36.3 C L 75 21 03/02/22 01:40 36.5 C 83 24 03/02/22 01:35 36.5 C 80 23 03/02/22 01:30 36.5 C 76 15 94 03/02/22 01:25 36.5 C 70 16 93 03/02/22 01:20 36.6 C 74 15 92 03/02/22 01:15 36.6 C 91 H 25 H 97 03/02/22 01:10 36.6 C 74 15 94 03/02/22 01:05 36.6 C 76 17 95 03/02/22 01:00 36.6 C 78 17 93 03/02/22 00:55 36.7 C 76 17 94 03/02/22 00:50 36.7 C 75 15 94 03/02/22 00:45 36.7 C 75 15 92 03/02/22 00:40 36.7 C 76 16 94 03/02/22 00:35 36.7 C 75 15 96 03/02/22 00:30 36.7 C 87 20 91 03/02/22 00:25 36.7 C 77 17 94 03/02/22 00:20 36.8 C 89 21 95 03/02/22 00:15 36.8 C 77 15 92 03/02/22 00:10 36.8 C 87 23 92 03/02/22 00:05 36.8 C 80 16 92 03/02/22 00:00 36.8 C 80 16 94/55 L 92 03/01/22 23:59 75 03/01/22 23:55 36.8 C 93 H 19 91 03/01/22 23:50 36.9 C 84 15 92 03/01/22 23:45 36.9 C 85 17 91 03/01/22 23:40 36.9 C 82 17 91 03/01/22 23:35 36.9 C 82 15 90 03/01/22 23:30 36.9 C 85 3 L 96/58 L 91 03/01/22 23:25 36.9 C 84 16 93 03/01/22 23:20 36.9 C 77 12 92 03/01/22 23:15 37.0 C 78 16 91 03/01/22 23:10 37.0 C 82 18 93 03/01/22 23:05 37.0 C 83 19 93 03/01/22 23:00 37.0 C 79 22 123/67 93 03/01/22 22:55 37.0 C 81 17 94 03/01/22 22:50 37.0 C 93 H 13 89 L 03/01/22 22:45 37.0 C 79 13 92 03/01/22 22:40 37.0 C 77 13 92 03/01/22 22:35 37.0 C 80 16 92 03/01/22 22:30 37.0 C 91 H 15 111/64 92 03/01/22 22:25 37.0 C 81 17 92 03/01/22 22:20 37.1 C 81 16 92 03/01/22 22:15 37.1 C 83 20 93 03/01/22 22:10 37.1 C 82 16 93 03/01/22 22:05 37.1 C 82 16 91 03/01/22 22:00 37.1 C 81 19 109/63 92 03/01/22 21:55 37.1 C 83 14 94 03/01/22 21:50 37.1 C 88 15 92 03/01/22 21:45 37.1 C 86 19 93 03/01/22 21:40 37.2 C 81 22 95 03/01/22 21:35 37.2 C 90 15 93 03/01/22 21:30 37.2 C 83 14 117/64 94 03/01/22 21:25 37.2 C 81 17 95 03/01/22 21:20 37.2 C 82 17 94 03/01/22 21:15 37.2 C 82 14 93 03/01/22 21:14 37.2 C 81 19 119/64 94 03/01/22 21:10 37.2 C 80 16 94 03/01/22 21:05 37.2 C 79 14 94 03/01/22 21:00 37.2 C 79 14 101/60 94 03/01/22 20:55 37.2 C 83 16 94 03/01/22 20:50 37.2 C 80 18 94 03/01/22 20:45 37.2 C 83 17 93 03/01/22 20:40 37.1 C 87 17 94 03/01/22 20:35 37.1 C 81 17 92 03/01/22 20:30 37.1 C 85 14 93/61 L 92 03/01/22 20:25 37.1 C 83 17 94 03/01/22 20:20 37.1 C 85 16 92 03/01/22 20:15 37.0 C 85 19 95 03/01/22 20:10 37.0 C 81 16 92 03/01/22 20:05 37.0 C 85 16 93 03/01/22 20:00 37.0 C 85 17 100/61 94 03/01/22 19:55 36.9 C 85 19 92 Coding Level of Care Code Critical Care 1st 30-74 mins Diagnoses Septic shock A41.9; R65.21 Jaundice R17 Elevated LFTs R79.89 Short gut syndrome K91.2 Cachexia R64 Severe protein-energy malnutrition E43 Gastrointestinal tube present Z93.1 On total parenteral nutrition (TPN) Z78.9 Ascites R18.8 Hypocalcemia E83.51 Thrombocytopenia D69.6 Hypoglycemia E16.2 Time Spent (min) 39
[2022-03-02] MEDS: buprenorphine HCL 8 MG SUBL SL SCH (09:00)
[2022-03-02] MEDS ORDERED: POTASSIUM CHLORIDE PWD 20 MEQ PACK PO SCH (09:00)
[2022-03-02] MEDS ORDERED: HYDROCORTISONE SOD 50 MG in SYRINGE 0 ML IV SCH (09:00)
[2022-03-02] MEDS ORDERED: HYDROmorphone INJ 0.5 MG/0.5 ML SYR ONE (09:19)
[2022-03-02] MEDS ORDERED: HYDROmorphone INJ 0.5 MG/0.5 ML SYR IV STA (09:25)
[2022-03-02 09:58] VITALS: O2SAT 95
[2022-03-02 10:12] VITALS: BP 151/89; PULSE 84; TEMP 96.4
[2022-03-02] MEDS: HYDROmorphone INJ 0.5 MG/0.5 ML SYR IV PRN ×2 (11:03→11:24)
[2022-03-02] MEDS ORDERED: Nursing to Pharmacy Communication SCH (11:16)
[2022-03-02] MEDS ORDERED: ATROPINE SULFATE 1% OP SOLN 5 ML BTL SL PRN (11:35)
[2022-03-02] MEDS ORDERED: GLYCOPYRROLATE 0.2 MG/ML VIAL IV PRN (11:35)
[2022-03-02] MEDS ORDERED: LORazepam 0.5 MG in SYRINGE 0.25 ML IV PRN (11:35)
[2022-03-02] MEDS ORDERED: SCOPOLAMINE 1 MG TDSY TD SCH (11:35)
[2022-03-02] MEDS ORDERED: STAT IV Infusion **Titration per Protocol STA (11:35)
[2022-03-02] MEDS ORDERED: LORazepam 0.5 MG in SYRINGE 0.25 ML IV STA ×2 (11:38→18:47)
--- NOTE | 2022-03-02 11:38 | Hospitalist Progress Note ---
Date of Service March 02, 2022 Assessment & Plan (1) Encounter for palliative care: Plan: During my bedside visit today Mrs Lopez was crying out in pain. She complained of pain "all over" but particularly her chest and abdomen. She said repeatedly "I am ready to ." Pt's mother, , and son were all at bedside. They confirmed that she consistently all morning has asked to simply and that she was ready to pass. Family is in support of transition to comfort care measures. They all agree she has had a long [place] with numerous medical problems as well as numerous hospitalizations over the years but particularly the last 6 months. They understand that even with aggressive care (ongoing transfusional support, treatment of bacteremia/septic shock, treatment of pain, etc) her prognosis is very poor. I explained that it appears her liver disease (TPN induced?) has worsened over the last 1-2 months based on labs. I cannot exclude DIC given the coagulopathy & severely low platelets. Given her severe abdominal pain I cannot exclude SBP but she is a poor candidate for diagnostic paracentesis. Also, if her Mckee catheter is infected, she is a poor candidate to remove it at this time as well given the clinical picture. During the encounter I gave 0.5mg IV dilaudid x 1 and this had no effect on her pain level. Additional 0.5mg dose then given thereafter. Nursing staff report she had a dose of IV dilaudid about 1.5 hours prior to my rounds as well. Thus, when transitioning to comfort care, she will need continuous dilaudid infusion to remain comfortable given her chronic narcotic dependency. Offered to reach out to a local smoked meat preparer or desulphuring operator - patient declined such. Orders placed to d/c ICU level of care, transfer to med/surg, and initiate comfort care pathway. (2) Need for comfort care: Plan: Given severity of diffuse pain will employ dilaudid drip. Achieving pain control may be difficult because of chronic subutex usage. On prior hospitalizations we have had to use dilaudid rather than morphine as former has been more effective. Ativan 0.5mg IV prn agitation. Scop patch. atropine drops prn. Stop all IV antibiotics, pressors, vitals, BSGs, etc. Late in the day, after patient had been transferred to med/surg, patient remained with severe restlessness and discomfort. Dilaudid drip adjusted frequently. Ativan dose increased to 1mg doses. Gave zyprexa ODT 2.5mg x 1. (3) Septic shock: Plan: 2nd to GNR. source - ascites (SBP) vs central line vs urine vs lung vs combination of factors. Transition to comfort care. d/c IV abx. d/c pressors. d/c IV Fluids. (4) Bacteremia: Plan: 2nd to GNR. see above. (5) Generalized pain: Plan: severe. on chronic subutex. stop subutex. initiate dilaudid drip. titrate for optimal patient comfort. (6) Hypoglycemia: Plan: relative adrenal insufficiency with stress dose IV steroids. stop such, transition to comfort care. (7) Ascites: Plan: etiology? does appear to have some form of liver disease. perhaps chronic TPN induced liver disease and now more fulminant disease? INR continues to rise. poor candidate for diagnostic paracentesis to r/o SBP given severe thrombocytopenia, coagulopathy, etc. (8) Short gut syndrome: (9) Thrombocytopenia: Plan: DIC vs liver dysfunction vs nutritional vs combination of factors. SEVERE s/p transfusion. stop any additional transfusional support - transition to comfort care. (10) Elevated LFTs: Plan: present for months, but much worse, concerning for TPN-induced liver disease or other liver disease. synthetic function has declined - rising INR, low platelets, etc. 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: (15) Chronic pain syndrome: Plan: subutex TID (16) Ambulatory dysfunction: (17) Severe protein-energy malnutrition: (18) Gastrointestinal tube present: (19) Chronic pancreatitis: (20) On total parenteral nutrition (TPN): Plan: total time today about 80 minutes much of which was spent counseling the patient, transitioning her care to comfort care pathway, adjusting meds for comfort, etc critically ill patient with severe complex care coordination Admission and Anticipated Discharge Date Admission Date: March 01, 2022 Subjective events since her admission noted pressors weaned off this am by nursing per protocol when I came to her room her son, , and mother were all at bedside she was awake enough to state that she was in pain and it was generalized but worst in the abdomen and chest she was moaning at times several different instances she said "I'm ready to " family confirms she has said this multiple times this morning Review of Systems Review of Systems: Unobtainable due to cognitive status Physical Exam Physical Exam: gen - toxic appearing, chronically unwell appearing, moaning at times from pain, pale; increased work of breathing mouth - MM dry neck - no JVD chest - mckee line right upper chest present heart - RRR, s1 s2 lungs - increased work of breathing with tachypnea, retractions, using accessory muscles abd - diffuse tenderness, bs+ but diminished, distended w/ ascites, g-tube in place with brown drainage from insertion site ext - diffuse edema right arm, legs; cool to touch psych - awake, knows her family is in the room and that she is in the hospital Results & Data Results & Data ([facility]) Vital Signs (Past 12 Hours) Vital Signs Temp Pulse Resp BP Pulse Ox 03/02/22 10:00 35.8 C L 84 39 H 151/89 H 95 03/02/22 09:30 35.9 C L 84 25 H 97 03/02/22 09:10 36.0 C L 84 22 161/99 H 78 L 03/02/22 09:00 36.0 C L 85 35 H 113/62 95 03/02/22 08:45 36.0 C L 79 26 H 104/58 L 87 L 03/02/22 08:41 36.0 C L 78 20 104/58 L 94 03/02/22 08:30 36.1 C L 80 27 H 110/64 90 03/02/22 08:26 36.1 C L 80 20 110/64 94 03/02/22 08:15 36.1 C L 83 21 115/58 L 88 L 03/02/22 08:10 36.1 C L 78 22 100/53 L 91 03/02/22 08:00 36.1 C L 76 24 100/53 L 88 L 03/02/22 07:30 36.2 C L 77 21 100/51 L 92 03/02/22 07:00 36.1 C L 83 23 114/59 L 92 03/02/22 06:45 36.1 C L 78 24 96 03/02/22 03:55 36.1 C L 87 25 H 88 L 03/02/22 03:50 36.1 C L 84 24 87 L 03/02/22 03:45 36.1 C L 84 26 H 90 03/02/22 03:40 36.1 C L 90 13 89 L 03/02/22 03:35 36.1 C L 84 20 89 L 03/02/22 03:30 36.1 C L 88 17 103/67 89 L 03/02/22 03:25 36.1 C L 85 22 88 L 03/02/22 03:20 36.1 C L 88 22 89 L 03/02/22 03:15 36.1 C L 89 18 86 L 03/02/22 03:10 36.2 C L 86 18 90 03/02/22 03:05 36.2 C L 92 H 19 91 03/02/22 03:00 36.2 C L 89 20 116/62 88 L 03/02/22 02:55 36.2 C L 92 H 20 90 03/02/22 02:50 36.2 C L 83 17 90 03/02/22 02:45 36.2 C L 83 21 106/63 90 03/02/22 02:40 36.2 C L 87 21 93 03/02/22 02:35 36.2 C L 74 16 93 03/02/22 02:30 36.2 C L 72 16 92 03/02/22 02:25 36.2 C L 71 15 93 03/02/22 02:20 36.2 C L 85 21 92 03/02/22 02:15 36.3 C L 80 19 93 03/02/22 02:10 36.3 C L 78 25 H 94 03/02/22 02:05 36.3 C L 67 14 94 03/02/22 02:00 36.3 C L 69 15 93 03/02/22 01:55 36.3 C L 69 15 93 03/02/22 01:50 36.3 C L 74 19 92 03/02/22 01:45 36.3 C L 75 21 03/02/22 01:40 36.5 C 83 24 03/02/22 01:35 36.5 C 80 23 03/02/22 01:30 36.5 C 76 15 94 03/02/22 01:25 36.5 C 70 16 93 03/02/22 01:20 36.6 C 74 15 92 03/02/22 01:15 36.6 C 91 H 25 H 97 03/02/22 01:10 36.6 C 74 15 94 03/02/22 01:05 36.6 C 76 17 95 03/02/22 01:00 36.6 C 78 17 93 03/02/22 00:55 36.7 C 76 17 94 03/02/22 00:50 36.7 C 75 15 94 03/02/22 00:45 36.7 C 75 15 92 03/02/22 00:40 36.7 C 76 16 94 03/02/22 00:35 36.7 C 75 15 96 03/02/22 00:30 36.7 C 87 20 91 03/02/22 00:25 36.7 C 77 17 94 03/02/22 00:20 36.8 C 89 21 95 03/02/22 00:15 36.8 C 77 15 92 03/02/22 00:10 36.8 C 87 23 92 03/02/22 00:05 36.8 C 80 16 92 03/02/22 00:00 36.8 C 80 16 94/55 L 92 03/01/22 23:59 75 03/01/22 23:55 36.8 C 93 H 19 91 03/01/22 23:50 36.9 C 84 15 92 03/01/22 23:45 36.9 C 85 17 91 03/01/22 23:40 36.9 C 82 17 91 03/01/22 23:35 36.9 C 82 15 90 Laboratory Results Abnormal Labs 03/01/22 03/01/22 03/01/22 07:08 07:08 07:08 WBC RBC 3.93 L Hgb 9.7 L POC Hgb Hct 31.6 L POC Hct MCH 24.7 L MCHC 30.7 L RDW Std Deviation 47.7 H RDW Coeff of Esau 16.3 H Plt Count 13 L* Absolute Nucleated RBC 0.02 H Neutrophils # (Manual) 8.49 H Total Absolute Neuts 8.49 H Lymphocytes # (Manual) Total Abs Lymphocytes 0.00 L Metamyelocytes # (Man) PT 18.4 H INR 1.8 H APTT 35.2 H Fibrinogen POC pH POC pCO2 POC pO2 POC HCO3 POC Total CO2 POC Base Excess ABG pH (Temp Correct) ABG pCO2 (Temp Corrct POC ABG O2 Sat VBG pH VBG pCO2 POC Sodium Sodium 146 H Potassium Chloride 127 H Carbon Dioxide 14 L Anion Gap BUN 68 H BUN/Creatinine Ratio 94.4 H Glucose 137 H POC Glucose POC Glucose (other) Lactate Calcium 8.1 L Magnesium Total Bilirubin 7.0 H Direct Bilirubin AST Alkaline Phosphatase 424 H Troponin I High Sens 65.8 H* D Total Protein 5.7 L Albumin 2.3 L Albumin/Globulin Ratio 0.7 L Procalcitonin Urine Appearance Urine Protein Urine Blood Urine Bilirubin Ur Leukocyte Esterase Urine WBC (Auto) U Hyaline Cast (Auto) U Epithel Cells (Auto) Urine Bacteria (Auto) Granular Casts Crossmatch 03/01/22 03/01/22 03/01/22 07:08 08:12 12:57 WBC RBC Hgb POC Hgb Hct POC Hct MCH MCHC RDW Std Deviation RDW Coeff of Esau Plt Count Absolute Nucleated RBC Neutrophils # (Manual) Total Absolute Neuts Lymphocytes # (Manual) Total Abs Lymphocytes Metamyelocytes # (Man) PT 21.2 H INR 2.1 H APTT Fibrinogen 107 L POC pH POC pCO2 POC pO2 POC HCO3 POC Total CO2 POC Base Excess ABG pH (Temp Correct) ABG pCO2 (Temp Corrct POC ABG O2 Sat VBG pH VBG pCO2 POC Sodium Sodium Potassium Chloride Carbon Dioxide Anion Gap BUN BUN/Creatinine Ratio Glucose POC Glucose POC Glucose (other) Lactate Calcium Magnesium Total Bilirubin Direct Bilirubin AST Alkaline Phosphatase Troponin I High Sens Total Protein Albumin Albumin/Globulin Ratio Procalcitonin 33.00 H Urine Appearance Urine Protein Urine Blood Urine Bilirubin Ur Leukocyte Esterase Urine WBC (Auto) U Hyaline Cast (Auto) U Epithel Cells (Auto) Urine Bacteria (Auto) Granular Casts Crossmatch See Detail 03/01/22 03/01/22 03/01/22 12:57 13:11 13:13 WBC RBC Hgb POC Hgb Hct POC Hct MCH MCHC RDW Std Deviation RDW Coeff of Esau Plt Count Absolute Nucleated RBC Neutrophils # (Manual) Total Absolute Neuts Lymphocytes # (Manual) Total Abs Lymphocytes Metamyelocytes # (Man) PT INR APTT Fibrinogen POC pH POC pCO2 POC pO2 POC HCO3 POC Total CO2 POC Base Excess ABG pH (Temp Correct) ABG pCO2 (Temp Corrct POC ABG O2 Sat VBG pH 7.10 L VBG pCO2 19 L POC Sodium Sodium Potassium Chloride 125 H Carbon Dioxide 9 L* Anion Gap BUN 66 H BUN/Creatinine Ratio 80.5 H Glucose 19 L* POC Glucose POC Glucose (other) Lactate 5.7 H* Calcium 8.0 L Magnesium Total Bilirubin 6.4 H Direct Bilirubin 4.3 H AST Alkaline Phosphatase 669 H Troponin I High Sens Total Protein 4.2 L D Albumin 1.8 L Albumin/Globulin Ratio Procalcitonin Urine Appearance Urine Protein Urine Blood Urine Bilirubin Ur Leukocyte Esterase Urine WBC (Auto) U Hyaline Cast (Auto) U Epithel Cells (Auto) Urine Bacteria (Auto) Granular Casts Crossmatch 03/01/22 03/01/22 03/01/22 14:06 14:17 14:41 WBC RBC Hgb POC Hgb Hct POC Hct MCH MCHC RDW Std Deviation RDW Coeff of Esau Plt Count Absolute Nucleated RBC Neutrophils # (Manual) Total Absolute Neuts Lymphocytes # (Manual) Total Abs Lymphocytes Metamyelocytes # (Man) PT INR APTT Fibrinogen POC pH POC pCO2 POC pO2 POC HCO3 POC Total CO2 POC Base Excess ABG pH (Temp Correct) ABG pCO2 (Temp Corrct POC ABG O2 Sat VBG pH VBG pCO2 POC Sodium Sodium Potassium Chloride Carbon Dioxide Anion Gap BUN BUN/Creatinine Ratio Glucose POC Glucose 11 L* 124 H POC Glucose (other) Lactate Calcium Magnesium Total Bilirubin Direct Bilirubin AST Alkaline Phosphatase Troponin I High Sens Total Protein Albumin Albumin/Globulin Ratio Procalcitonin Urine Appearance Cloudy A Urine Protein Trace H Urine Blood 2+ H Urine Bilirubin 1+ H Ur Leukocyte Esterase Trace H Urine WBC (Auto) 5-10 H U Hyaline Cast (Auto) 5-10 H U Epithel Cells (Auto) 10-20 H Urine Bacteria (Auto) 4+ H Granular Casts 5-10 H Crossmatch 03/01/22 03/01/22 03/01/22 15:08 15:08 15:08 WBC RBC 3.12 L Hgb 7.8 L POC Hgb Hct 25.4 L POC Hct MCH MCHC 30.7 L RDW Std Deviation 50.4 H RDW Coeff of Esau 17.0 H Plt Count 19 L* Absolute Nucleated RBC 0.11 H Neutrophils # (Manual) 10.13 H Total Absolute Neuts 10.13 H Lymphocytes # (Manual) Total Abs Lymphocytes 0.00 L Metamyelocytes # (Man) 0.16 H PT INR APTT Fibrinogen POC pH POC pCO2 POC pO2 POC HCO3 POC Total CO2 POC Base Excess ABG pH (Temp Correct) ABG pCO2 (Temp Corrct POC ABG O2 Sat VBG pH VBG pCO2 POC Sodium Sodium Potassium Chloride Carbon Dioxide Anion Gap BUN BUN/Creatinine Ratio Glucose POC Glucose POC Glucose (other) Lactate 8.9 H* Calcium Magnesium Total Bilirubin Direct Bilirubin AST Alkaline Phosphatase Troponin I High Sens 226.1 H* D Total Protein Albumin Albumin/Globulin Ratio Procalcitonin Urine Appearance Urine Protein Urine Blood Urine Bilirubin Ur Leukocyte Esterase Urine WBC (Auto) U Hyaline Cast (Auto) U Epithel Cells (Auto) Urine Bacteria (Auto) Granular Casts Crossmatch 03/01/22 03/01/22 03/01/22 15:26 18:29 22:14 WBC RBC Hgb POC Hgb 7.8 L Hct POC Hct 23 L MCH MCHC RDW Std Deviation RDW Coeff of Esau Plt Count Absolute Nucleated RBC Neutrophils # (Manual) Total Absolute Neuts Lymphocytes # (Manual) Total Abs Lymphocytes Metamyelocytes # (Man) PT INR APTT Fibrinogen POC pH 7.25 L POC pCO2 19 L POC pO2 60 L POC HCO3 8 L POC Total CO2 9 L* POC Base Excess -19.0 L ABG pH (Temp Correct) 7.253 L ABG pCO2 (Temp Corrct 19 L POC ABG O2 Sat 87.0 L VBG pH VBG pCO2 POC Sodium 146 H Sodium Potassium Chloride Carbon Dioxide Anion Gap BUN BUN/Creatinine Ratio Glucose POC Glucose 68 L* 141 H POC Glucose (other) Lactate Calcium Magnesium Total Bilirubin Direct Bilirubin AST Alkaline Phosphatase Troponin I High Sens Total Protein Albumin Albumin/Globulin Ratio Procalcitonin Urine Appearance Urine Protein Urine Blood Urine Bilirubin Ur Leukocyte Esterase Urine WBC (Auto) U Hyaline Cast (Auto) U Epithel Cells (Auto) Urine Bacteria (Auto) Granular Casts Crossmatch 03/01/22 03/01/22 03/02/22 22:49 22:49 00:12 WBC 32.69 H* D RBC 3.67 L Hgb 9.7 L POC Hgb Hct 29.9 L POC Hct MCH MCHC RDW Std Deviation 48.6 H RDW Coeff of Easu 16.1 H Plt Count 8 L* D Absolute Nucleated RBC 0.13 H Neutrophils # (Manual) Total Absolute Neuts Lymphocytes # (Manual) Total Abs Lymphocytes Metamyelocytes # (Man) PT INR APTT Fibrinogen POC pH POC pCO2 POC pO2 POC HCO3 POC Total CO2 POC Base Excess ABG pH (Temp Correct) ABG pCO2 (Temp Corrct POC ABG O2 Sat VBG pH VBG pCO2 POC Sodium Sodium 146 H Potassium Chloride 117 H Carbon Dioxide 13 L Anion Gap 16 H BUN 65 H BUN/Creatinine Ratio 59.6 H Glucose 150 H POC Glucose 151 H POC Glucose (other) Lactate Calcium 7.7 L Magnesium Total Bilirubin Direct Bilirubin AST Alkaline Phosphatase Troponin I High Sens Total Protein Albumin Albumin/Globulin Ratio Procalcitonin Urine Appearance Urine Protein Urine Blood Urine Bilirubin Ur Leukocyte Esterase Urine WBC (Auto) U Hyaline Cast (Auto) U Epithel Cells (Auto) Urine Bacteria (Auto) Granular Casts Crossmatch 03/02/22 03/02/22 03/02/22 01:14 02:16 03:25 WBC RBC Hgb POC Hgb Hct POC Hct MCH MCHC RDW Std Deviation RDW Coeff of Esau Plt Count Absolute Nucleated RBC Neutrophils # (Manual) Total Absolute Neuts Lymphocytes # (Manual) Total Abs Lymphocytes Metamyelocytes # (Man) PT INR APTT Fibrinogen POC pH POC pCO2 POC pO2 POC HCO3 POC Total CO2 POC Base Excess ABG pH (Temp Correct) ABG pCO2 (Temp Corrct POC ABG O2 Sat VBG pH VBG pCO2 POC Sodium Sodium Potassium Chloride Carbon Dioxide Anion Gap BUN BUN/Creatinine Ratio Glucose POC Glucose 158 H 155 H 152 H POC Glucose (other) Lactate Calcium Magnesium Total Bilirubin Direct Bilirubin AST Alkaline Phosphatase Troponin I High Sens Total Protein Albumin Albumin/Globulin Ratio Procalcitonin Urine Appearance Urine Protein Urine Blood Urine Bilirubin Ur Leukocyte Esterase Urine WBC (Auto) U Hyaline Cast (Auto) U Epithel Cells (Auto) Urine Bacteria (Auto) Granular Casts Crossmatch 03/02/22 03/02/22 03/02/22 03:49 03:49 03:51 WBC 22.82 H RBC 3.28 L Hgb 8.6 L POC Hgb Hct 26.3 L POC Hct MCH MCHC RDW Std Deviation 46.4 H RDW Coeff of Esau 15.8 H Plt Count 7 L* Absolute Nucleated RBC 0.06 H Neutrophils # (Manual) 22.04 H Total Absolute Neuts 22.04 H Lymphocytes # (Manual) 0.39 L Total Abs Lymphocytes 0.39 L Metamyelocytes # (Man) PT INR APTT Fibrinogen POC pH POC pCO2 POC pO2 POC HCO3 POC Total CO2 POC Base Excess ABG pH (Temp Correct) ABG pCO2 (Temp Corrct POC ABG O2 Sat VBG pH VBG pCO2 POC Sodium Sodium Potassium 3.4 L Chloride 115 H Carbon Dioxide 14 L Anion Gap 14 H BUN 66 H BUN/Creatinine Ratio 60.6 H Glucose 139 H POC Glucose 155 H POC Glucose (other) Lactate Calcium 7.4 L Magnesium 1.6 L Total Bilirubin 9.2 H Direct Bilirubin 5.5 H AST 50 H Alkaline Phosphatase 249 H Troponin I High Sens Total Protein 4.4 L Albumin 2.4 L Albumin/Globulin Ratio Procalcitonin Urine Appearance Urine Protein Urine Blood Urine Bilirubin Ur Leukocyte Esterase Urine WBC (Auto) U Hyaline Cast (Auto) U Epithel Cells (Auto) Urine Bacteria (Auto) Granular Casts Crossmatch 03/02/22 03/02/22 03/02/22 03:54 05:12 06:15 WBC RBC Hgb POC Hgb 8.8 L Hct POC Hct 26 L MCH MCHC RDW Std Deviation RDW Coeff of Esau Plt Count Absolute Nucleated RBC Neutrophils # (Manual) Total Absolute Neuts Lymphocytes # (Manual) Total Abs Lymphocytes Metamyelocytes # (Man) PT INR APTT Fibrinogen POC pH 7.33 L POC pCO2 26 L POC pO2 45 L POC HCO3 14 L POC Total CO2 14 L POC Base Excess -12.0 L ABG pH (Temp Correct) 7.339 L ABG pCO2 (Temp Corrct 25 L POC ABG O2 Sat 79.0 L VBG pH VBG pCO2 POC Sodium 145 H Sodium Potassium Chloride Carbon Dioxide Anion Gap BUN BUN/Creatinine Ratio Glucose POC Glucose 125 H POC Glucose (other) 106 H Lactate Calcium Magnesium Total Bilirubin Direct Bilirubin AST Alkaline Phosphatase Troponin I High Sens Total Protein Albumin Albumin/Globulin Ratio Procalcitonin Urine Appearance Urine Protein Urine Blood Urine Bilirubin Ur Leukocyte Esterase Urine WBC (Auto) U Hyaline Cast (Auto) U Epithel Cells (Auto) Urine Bacteria (Auto) Granular Casts Crossmatch 03/02/22 03/02/22 06:47 08:00 WBC RBC Hgb POC Hgb Hct POC Hct MCH MCHC RDW Std Deviation RDW Coeff of Esau Plt Count Absolute Nucleated RBC Neutrophils # (Manual) Total Absolute Neuts Lymphocytes # (Manual) Total Abs Lymphocytes Metamyelocytes # (Man) PT 22.4 H INR 2.2 H APTT Fibrinogen 142 L D POC pH POC pCO2 POC pO2 POC HCO3 POC Total CO2 POC Base Excess ABG pH (Temp Correct) ABG pCO2 (Temp Corrct POC ABG O2 Sat VBG pH VBG pCO2 POC Sodium Sodium Potassium Chloride Carbon Dioxide Anion Gap BUN BUN/Creatinine Ratio Glucose POC Glucose POC Glucose (other) 126 H Lactate Calcium Magnesium Total Bilirubin Direct Bilirubin AST Alkaline Phosphatase Troponin I High Sens Total Protein Albumin Albumin/Globulin Ratio Procalcitonin Urine Appearance Urine Protein Urine Blood Urine Bilirubin Ur Leukocyte Esterase Urine WBC (Auto) U Hyaline Cast (Auto) U Epithel Cells (Auto) Urine Bacteria (Auto) Granular Casts Crossmatch Diagnostic Findings Abdomen/Pelvis CT 03/01/22 07:27 CT abd pelvis IV con only CLINICAL HISTORY: abd pain TECHNIQUE: Helical axial images of the abdomen and pelvis were obtained and displayed. Automated dose lowering techniques and/or adjustment according to patient size were utilized for this exam. This exam was performed with intravenous contrast. CT DOSE: 329.03 mGy.cm COMPARISON: Comparison is made to CT abdomen pelvis 02/01/2022 FINDINGS: Lower chest: Airspace opacity is noted in the right middle lobe. There are small bilateral pleural effusions, right greater than left. Liver: Unremarkable. No focal lesions are seen. Gallbladder and biliary tree: Patient is status post cholecystectomy. No intra- or extrahepatic biliary ductal dilation. Pancreas: Unremarkable, no focal lesions. Spleen: Splenomegaly is noted, the spleen measures 12 cm. Adrenals: Unremarkable. Kidneys and ureters: Unremarkable. Bladder: Unremarkable. Reproductive organs: Unremarkable. Bowel: A gastrostomy tube is seen. No bowel obstruction is seen. Edema in the bowel wall is noted which may be secondary to ascites. Lymph nodes Retroperitoneal: Unremarkable. Mesenteric: Unremarkable. Pelvic: Unremarkable. Peritoneum: Moderate ascites is seen. Vessels: Atherosclerotic calcifications are seen. Abdominal wall: Cachexia is noted. Bones: Left total hip arthroplasty is seen. Sclerotic focus in the right 11th rib is unchanged. Degenerative changes are seen in the spine with multilevel compression deformities. IMPRESSION: 1. Interval development of moderate ascites, of unknown etiology. 2. Compared to prior exam, bowel loops are no longer dilated. 3. Cachexia is noted. ACT 112: Negative or not required by law. Electronically signed by: Ruddy Hurtado M.D. 03/01/2022 9:36 AM Chest X-Ray 03/01/22 07:27 XR chest 1V not portable CLINICAL HISTORY: SEPSIS TECHNIQUE: Single frontal radiograph of the chest was obtained. Comparison: Comparison is made to chest radiographs 02/01/2022 FINDINGS: Right jugular catheter is unchanged. Calcified aortic knob is seen. The lungs a re clear. No evidence of pleural effusion or pneumothorax. IMPRESSION: No acute chest disease. ACT 112: Negative or not required by law. Electronically signed by: Ruddy Hurtado M.D. 03/01/2022 9:48 AM Forearm X-Ray 03/01/22 07:27 XR forearm RT 2V CLINICAL HISTORY: pain TECHNIQUE: 2 views of the right forearm were obtained. Comparison: None available at the time of this dictation. FINDINGS: There is no evidence of acute fracture or dislocation. The alignment is anatomic. Joint spaces are well-preserved. No soft tissue abnormality is seen. IMPRESSION: No evidence of acute osseous injury. ACT 112: Negative or not required by law. Electronically signed by: Ruddy Hurtado M.D. 03/01/2022 9:49 AM Hand X-Ray 03/01/22 07:27 XR hand RT 2V CLINICAL HISTORY: pain TECHNIQUE: 2 views of the right hand were obtained. Comparison: None available at the time of this dictation. FINDINGS: There is no evidence of an acute fracture. Degenerative changes are seen most prominent in the interphalangeal joints. No soft tissue abnormality is seen. IMPRESSION: Degenerative changes are seen without evidence of acute abnormality. ACT 112: Negative or not required by law. Electronically signed by: Ruddy Hurtado M.D. 03/01/2022 9:38 AM Humerus X-Ray 03/01/22 07:27 XR humerus RT 2V CLINICAL HISTORY: pain TECHNIQUE: 2 radiographic views of the right humerus were obtained. Comparison: None available at the time of this dictation. FINDINGS: There is no evidence for fracture, subluxation or dislocation. The visualized portion of the shoulder and elbow joints are unremarkable. There is normal bone mineralization. The soft tissues are unremarkable. IMPRESSION: No acute osseous injury ACT 112: Negative or not required by law. Electronically signed by: Ruddy Hurtado M.D. 03/01/2022 9:42 AM Venous Doppler Study 03/01/22 07:27 US venous doppler UE RT HISTORY: 57 years-old Female pain/swelling acute pain and swelling of the right upper extremity. History of nonocclusive superficial venous thrombus. COMPARISON: Doppler study dated 01/21/2022 TECHNIQUE: Multiple real-time sonographic images of the right upper extremity deep venous structures were obtained assessing grayscale appearance, color and spectral flow FINDINGS: Limited exam secondary to lack of cooperation from the patient and right chest wall bandage. Subcutaneous edema of the right upper extremity and chest. A line is noted within the subclavian vein. No acute occlusive deep venous thrombus identified. The previously noted superficial venous thrombus is not identified within the right axilla. There is mild linear stranding within the right internal jugular vein which is unchanged. IMPRESSION: 1. No acute occlusive DVT. 2. Minimal linear stranding within the right internal jugular vein is redemonstrated which may represent fibrin from a chronic thrombus. ACT 112: Negative or not required by law. The above report was generated using voice recognition software. It may contain grammatical, syntax or spelling errors. Electronically signed by: Kota Ramírez M.D. 03/01/2022 10:09 AM Wrist X-Ray 03/01/22 07:27 XR wrist RT 2V CLINICAL HISTORY: Right wrist pain. COMPARISON STUDY: No previous studies for comparison. TECHNIQUE: 2 right wrist views FINDINGS: Bones: There is no evidence for an acute fracture or dislocation. There is no lytic or blastic lesion. Joints: The joint spaces are maintained. The bones are in anatomic alignment. Soft tissues: There is no focal soft tissue abnormality. There is no radiopaque foreign body. IMPRESSION: 1. No acute osseous pathology. ACT 112: Negative or not required by law. Electronically signed by: Isauro Franco M.D. 03/01/2022 9:[address] 03/01/22 08:53 CT head/brain wo con CLINICAL HISTORY: Technique: Contiguous axial CT images of the head were acquired from the base of the skull to the vertex without intravenous contrast administration. Images were viewed in brain, subdural and bone windows. Automated dose lowering techniques and/or adjustment according to patient size were utilized for this exam. Comparison: None available at the time of this dictation. Findings: The ventricles, basal cisterns, and cerebral sulci are normal. There is no acute intracranial hemorrhage or evidence of acute territorial infarction. Neither mas s effect, shift of the midline structures, nor abnormal extra-axial fluid collections are shown. Imaged portions of the paranasal sinuses and mastoid air cells are clear. The orbits appear normal. There are no acute fractures of the calvaria or scalp swelling. Impression: No acute intracranial hemorrhage, no evidence of acute territorial infarction or other acute intracranial disease process. ACT 112: Negative or not required by law. Electronically signed by: Ruddy Hurtado M.D. 03/01/2022 9:37 AM PG Care Time/CCT Total # of Minutes Spent Total Time Spent with Patient: Total time spent is greater than 50% in coordination of care (as documented) at patient's floor/unit and/or counseling patient: Prolonged Care Time Prolonged Care Time: Yes Total Prolonged Care Time: 80 Coding Level of Care Code 29793 Subseq Hosp Care Lvl 3 (25 - SIGNIFICANT, SEPARATELY IDENTIFIABLE ) Diagnoses Septic shock A41.9; R65.21 Bacteremia R78.81 Generalized pain R52 Hypoglycemia E16.2 Ascites R18.8 Short gut syndrome K91.2 Thrombocytopenia D69.6 Elevated LFTs R79.89 Anemia D64.9 Anemia type: unspecified type Pneumonia J18.9 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
[2022-03-02] MEDS: HYDROmorphone/NSS 100 MG/100 ML BAG IV SCH (12:26)
[2022-03-02] MEDS: CHECK SCOPOLAMINE PATCH PLACEMENT SCH ×2 (15:23→23:32)
[2022-03-02] MEDS ORDERED: HYDROmorphone INJ 1 MG/ML SYRINGE IV STA (16:31)
[2022-03-02] MEDS ORDERED: ICU ELECTROLYTE REPLACEMENT PROTOCOL SCH (18:00)
[2022-03-02] MEDS ORDERED: LORazepam 1 MG in SYRINGE 0.5 ML IV PRN (18:49)
[2022-03-02] MEDS ORDERED: OLANZapine ZYDIS 5 MG ORALLY DIS. TAB PO STA (19:07)
[2022-03-02] MEDS: LORazepam 1 MG in SYRINGE 0.5 ML IV SCH (23:31)
[2022-03-03] MEDS: LORazepam 1 MG in SYRINGE 0.5 ML IV SCH ×8 (02:17→23:04)
[2022-03-03] MEDS: CHECK SCOPOLAMINE PATCH PLACEMENT SCH ×2 (08:47→14:37)
--- NOTE | 2022-03-03 21:17 | Hospitalist Progress Note ---
Date of Service March 03, 2022 Assessment & Plan (1) Encounter for palliative care: Plan: Transitioned to comfort care pathway 03/02/22. Cont dilaudid drip. Cont scheduled IV ativan q3h. Patient very comfortable on this regimen/combination. If any worsening, agitation, etc - can try zyprexa ODT 2.5mg again prn. (2) Need for comfort care: Plan: as above #1 (3) Septic shock: Plan: 2nd to enterobacter. Urine cx grew such. Blood cx's grew such. Abx d/c due to #1. (4) Bacteremia: Plan: 2nd to enterobacter. (5) Generalized pain: Plan: much more comfortable today. (6) Hypoglycemia: (7) Ascites: (8) Short gut syndrome: (9) Thrombocytopenia: Plan: DIC vs liver dysfunction vs nutritional vs combination of factors. SEVERE s/p transfusion hospital day #2. (10) Elevated LFTs: (11) Anemia: (12) Pneumonia: Plan: RML - seen on CT abd/pelvis at time of admission (13) Radiation enterocolitis: Plan: chronic leading to #14 below which then led to chronic TPN usage (14) Chronic pseudo-obstruction of small intestine: (15) Chronic pain syndrome: (16) Ambulatory dysfunction: (17) Severe protein-energy malnutrition: (18) Gastrointestinal tube present: (19) Chronic pancreatitis: (20) On total parenteral nutrition (TPN): Plan: support given to at bedside Admission and Anticipated Discharge Date Admission Date: March 01, 2022 Subjective unresponsive during the visit at bedside -- he reports she responded only 1x today (made a moan sound for <1sec only) he feels she is comfortable Review of Systems Review of Systems: Pulm - no cough GI - no vomiting Physical Exam Physical Exam: gen - unresponsive; tachypneic; chronically unwell in appearance mouth - lips dry neck - no JVD heart - RRR, s1 s2 lungs - course BS b/l; tachypnea but no retractions; comfortable abd - no obvious tenderness; g-tube in place ext - cool to touch, pulses 1-2+ b/l; edema of b/l arms Results & Data Results & Data ([facility]) Vital Signs (Past 12 Hours) none - due to comfort care status PG Care Time/CCT Total # of Minutes Spent Total Time Spent with Patient: Total time spent is greater than 50% in coordination of care (as documented) at patient's floor/unit and/or counseling patient: Coding Level of Care Code 94771 Subseq Hosp Care Lvl 1 Diagnoses Encounter for palliative care Z51.5 Need for comfort care Septic shock A41.9; R65.21 Bacteremia R78.81 Generalized pain R52 Hypoglycemia E16.2 Ascites R18.8 Short gut syndrome K91.2 Thrombocytopenia D69.6 Elevated LFTs R79.89 Anemia D64.9 Anemia type: unspecified type Pneumonia J18.9 Radiation enterocolitis K52.0 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
[2022-03-04] MEDS: CHECK SCOPOLAMINE PATCH PLACEMENT SCH ×3 (00:44→14:24)
[2022-03-04] MEDS: HYDROmorphone/NSS 100 MG/100 ML BAG IV SCH (02:15)
[2022-03-04] MEDS: LORazepam 1 MG in SYRINGE 0.5 ML IV SCH ×8 (02:18→23:24)
[2022-03-04 09:30] LABS: A calco-baum cmplx NotReported Not Detected (NotDetected); Bact fragilis Not Reported Not Detected (NotDetected); C auris Not Reported Not Detected (NotDetected); CTX-M Resistant Gene Not Detected (NotDetected); Calbicans Not Reported Not Detected (NotDetected); Candida glabrata Not Reported DETECTED (NotDetected); Candida krusei Not Reported Not Detected (NotDetected); Cneoformans/gatti Not Reported Not Detected (NotDetected); Cparapsilosis Not Reported Not Detected (NotDetected); Ctropicalis Not Reported Not Detected (NotDetected); E cloacae compx Not Reported DETECTED (NotDetected); Efaecalis Not Reported Not Detected (NotDetected); Efaecium Not Reported Not Detected (NotDetected); Enterobacter cloacae complex DETECTED (NotDetected); Enterobacterales DETECTED (NotDetected); Enterobacterales Not Reported DETECTED (NotDetected); Escherichia coli Not Reported Not Detected (NotDetected); H influenzae Not Reported Not Detected (NotDetected); IMP Resistant Gene Not Detected (NotDetected); K aerogenes Not Reported Not Detected (NotDetected); KPC Resistant Gene Not Detected (NotDetected); Koxytoca Not Reported Not Detected (NotDetected); Kpneumoniae grp Not Reported Not Detected (NotDetected); Lmonocyt Not Reported Not Detected (NotDetected); N meningitidis Not Reported Not Detected (NotDetected); NDM Resistant Gene Not Detected (NotDetected); OXA 48 Like Resistant Gene Not Detected (NotDetected); P aeruginosa Not Reported Not Detected (NotDetected); Proteus spp Not Reported Not Detected (NotDetected); Salmonella spp Not Reported Not Detected (NotDetected); Smarcescens Not Reported Not Detected (NotDetected); Staph lugdunensis Not Reported Not Detected (NotDetected); Staph spp. Not Reported Not Detected (NotDetected); Staphaureus Not Reported Not Detected (NotDetected); Staphepi Not Reported Not Detected (NotDetected); Stenmaltophilia Not Reported Not Detected (NotDetected); Strep agal(GrpB) Not Reported Not Detected (NotDetected); Strep pneum Not Reported Not Detected (NotDetected); Strep pyog (GrpA) Not Reported Not Detected (NotDetected); Strep spp Not Reported Not Detected (NotDetected); VIM Resistant Gene Not Detected (NotDetected); mcr-1 Colistin Resistant Gene Not Detected (NotDetected)
[2022-03-04 09:51] LABS: Candida glabrata DETECTED (NotDetected)
--- NOTE | 2022-03-04 21:11 | Hospitalist Progress Note ---
Date of Service March 04, 2022 Assessment & Plan (1) Encounter for palliative care: Plan: Transitioned to comfort care pathway 03/02/22. Cont dilaudid drip. Cont scheduled IV ativan q3h. Patient very comfortable on this regimen/combination. (2) Need for comfort care: Plan: as above #1 (3) Septic shock: Plan: blood cultures with 2 pathogens - 2nd to enterobacter - likely from UTI. 2nd to baron glabrata - likely due to line infection. Abx d/c due to #1. (4) Bacteremia: Plan: 2nd to enterobacter. 2nd baron. (5) Generalized pain: Plan: comfortable on current med regimen (6) Hypoglycemia: (7) Ascites: (8) Short gut syndrome: (9) Thrombocytopenia: Plan: DIC vs liver dysfunction vs nutritional vs combination of factors. SEVERE s/p transfusion hospital day #2. (10) Elevated LFTs: (11) Anemia: (12) Pneumonia: Plan: RML - seen on CT abd/pelvis at time of admission (13) Radiation enterocolitis: Plan: chronic leading to #14 below which then led to chronic TPN usage (14) Chronic pseudo-obstruction of small intestine: (15) Chronic pain syndrome: (16) Ambulatory dysfunction: (17) Severe protein-energy malnutrition: (18) Gastrointestinal tube present: (19) Chronic pancreatitis: (20) On total parenteral nutrition (TPN): (21) Gangrene of hand: Plan: left in setting of DIC with septic shock/bacteremia comfort care Plan: support given to at bedside anticipate pt's passing within the next 1-2 days Admission and Anticipated Discharge Date Admission Date: March 01, 2022 Subjective patient obtunded at bedside remains comfortable per he has no concerns about pain control or comfort Review of Systems Review of Systems: Unobtainable due to reduced consciousness Physical Exam Physical Exam: gen - unresponsive; quiet tachypnea; chronically unwell in appearance; comfortable mouth - lips dry neck - no JVD heart - tachy, RR, s1 s2 lungs - course BS b/l; tachypnea but no retractions; comfortable abd - no obvious tenderness ext - left hand gangrene (multiple fingers with black fingertips, cold to touch); pulses <1+ b/l feet; cold feet; edema of b/l arms PG Care Time/CCT Total # of Minutes Spent Total Time Spent with Patient: Total time spent is greater than 50% in coordination of care (as documented) at patient's floor/unit and/or counseling patient: Coding Level of Care Code 20162 Subseq Hosp Care Lvl 1 Diagnoses Encounter for palliative care Z51.5 Need for comfort care Septic shock A41.9; R65.21 Bacteremia R78.81 Generalized pain R52 Hypoglycemia E16.2 Ascites R18.8 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
[2022-03-05] MEDS: CHECK SCOPOLAMINE PATCH PLACEMENT SCH (00:01)
[2022-03-05] MEDS: LORazepam 1 MG in SYRINGE 0.5 ML IV SCH (02:03)
--- NOTE | 2022-03-05 03:22 | Death Pronouncement Note ---
Date of Service March 05, 2022 Pronouncement Note Admission Date Admission Date: March 01, 2022 Date and Time of Date of : 03/05/22 Time of : 03:18 PCOD Preliminary cause of : Septic shock Contributing Factors (1) Bacteremia: (2) Ascites: (3) Encounter for palliative care: (4) Need for comfort care: (5) Generalized pain: (6) Hypoglycemia: (7) Short gut syndrome: (8) Thrombocytopenia: (9) Elevated LFTs: (10) Anemia: (11) Pneumonia: (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: (13) Chronic pseudo-obstruction of small intestine: (14) Chronic pain syndrome: (15) Ambulatory dysfunction: (16) Severe protein-energy malnutrition: (17) Gastrointestinal tube present: (18) Chronic pancreatitis: (19) On total parenteral nutrition (TPN): Summary Additional details: home: [facility]. Additional Data Confirmation of : no pulse, no respirations and pupils fixed and dilated Family: at bedside (maternal aunt) Attending/PCP notified?: Yes Attending physician: Roman Douglas Was code activated?: No Autopsy requested?: No forensic examiner notified?: No Organ bank notified?: No Resident Activity Tracking Resident Involvement: Resident Care Provided Care Provided: Adult Hospital Medicine
--- NOTE | 2022-03-09 12:54 | Discharge Summary ---
Date of Service date of admission - March 01, 2022 date of - March 05, 2022 time of - 03:18 Admission HPI Per Admitting Provider Caroline Lopez is a 57-year-old chronically ill female with severe protein energy malnutrition on TPN, hepatic steatosis, radiation enterocolitis s/p malignant spinal ependymoma in 1992, chronic partial SBO s/p PEG, osteoporosis, lumbar spinal stenosis, chronic pain disorder on buprenorphine, chronic pancreatitis, and anxiety who presents today with chills and generalized weakness since last week. At the time of my visit, patient is very lethargic and unable to provide history, therefore history is obtained from and ED provider. Patient has been having on and off chills and feeling warm at times over the past 5 days, since of last week. She also had generalized body aches. She was concerned for chronic PEG tube leak. Denies any falls, has been taking her regular medications at home for management of her symptoms. In ED, patient initially presented tachycardic with HR 110-130, stable blood pressure however at the time of my visit with patient, she became significantly hypotensive with SBP 7080s, DBP 4050s. Remains tachycardic with HR 110-120s. Labs significant for platelets 13, PT 18.4, INR 1.8, PTT 35.2, Hgb 9.7 (~baseline), chloride 127, carbon dioxide 14, BUN 68, calcium 8.1, T bili 7.0, AST and ALT wnl. Alk phos 424. hsTrop 65.8, CT A/P showed interval development of moderate ascites, bowel loops no longer dilated compared to last imaging. Head CT ordered given severe thrombocytopenia, unremarkable. Chest x-ray unremarkable. Right wrist hand, forearm, humerus x- rays ordered given pain in RUE, all unrevealing. 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 In ED, hematology was consulted regarding severe thrombocytopenia, they had commended ordering a peripheral smear and platelet transfusion given her low platelets. Patient was also started on empiric antibiotics, Zosyn, cefepime, and caspofungin given her history of fungemia of a central line back in October of this year. Principal Diagnosis Septic Shock 2nd to Bacteremia/Septicemia/Fungemia UTI DIC Acute liver failure Acute kidney injury Discharge Exam at time of - see pronouncement note - pupils fixed/dilated, no response to pain, no response to voice, no audible heart tones, no spontaneous respiratory effort, no palpable pulse Discharge Data Allergies Allergy/AdvReac Type Severity Reaction Status Date / Time ibuprofen Allergy Intermediate RINGING IN Verified 02/01/22 19:31 EARS,PARTIAL LOSS HEARING ketorolac Allergy Intermediate ROARING Verified 02/01/22 19:31 SOUND IN EARS NSAIDS (Non-Steroidal Allergy Intermediate RINGING IN Verified 02/01/22 19:31 Anti-Inflamma EARS zoledronic acid Allergy Intermediate FLU LIKE Verified 02/01/22 19:31 SYMPTOMS SEVERE HEADACHE vancomycin AdvReac Severe ZACHERY Verified 02/01/22 19:31 SYNDROME alprazolam AdvReac Intermediate LOSS OF Verified 02/01/22 19:31 HEARING aspirin AdvReac Intermediate RINGING IN Verified 02/01/22 19:31 EARS,PARTIAL HEARING LOSS promethazine AdvReac Mild RESTLESS Verified 02/01/22 19:31 LEGS Consultations Business Process Architect General Surgery Procedures Performed Arterial line placement Platelet transfusion Ordered Studies 03/01/22 07:27 CT abd pelvis IV con only Stat US venous doppler UE RT Stat 03/01/22 08:53 CT head/brain wo con Stat Hospital Course (1) Septic shock: The patient presented with septic shock requiring crystalloid, colloid, and initiation of multiple pressors. She also received stress-dose IV steroids. Broad-spectrum IV antibiotic therapy was employed. Blood cultures ultimately grew a combination of both bacteria & fungus. Enterobacter grew out of all blood cultures --- this was 2nd to enterobacter UTI. Fungus grew out of all blood cultures as well --- baron glabrata. Source of fungemia - likely her Jaime catheter used for chronic TPN. She had evidence of DIC, acute liver failure, volume overload/anasarca, metabolic encephalopathy, EVETTE 2nd to sepsis-associated ATN, etc. On hospital day #2 - despite improvement in her BPs - she had worsening coagulopathy, worsening abdominal pain, severe tachypnea (likely in response to acidosis), and severe body-wide pain. She told hospital staff, hospital providers, and her entire family that she wished to be made comfortable. After considerable discussion with her and her family we transitioned to a comfort care pathway. Pressors, fluids, antibiotics, etc were discontinued. She required use of dilaudid infusion, scheduled ativan, and other agents to remain comfortable. She was transferred from ICU to med/surg. While on comfort care she developed evidence of left hand gangrene, likely from her DIC. She remained comfortable with the measures above until her passing early in the AM on 03/05/22. (2) Bacteremia: 2nd to enterobacter UTI. (3) Fungemia: 2nd to baron glabrata. source - Jaime catheter used for TPN. (4) DIC (disseminated intravascular coagulation): SEVERE thrombocytopenia (platelets <10), markedly elevated coags, low fibrinogen, etc all c/w DIC. After transitioning to comfort care pathway she developed gangrene of her left hand. (5) Gangrene of hand: left (6) Encounter for palliative care: Transitioned to comfort care pathway 03/02/22. Remained on such until her passing early in the AM on 03/05/22. (7) Need for comfort care: (8) Ascites: (9) Generalized pain: (10) Hypoglycemia: (11) Short gut syndrome: (12) Thrombocytopenia: DIC vs liver dysfunction vs nutritional vs combination of factors. SEVERE s/p transfusion hospital day #2. (13) Elevated LFTs: Evidence of acute liver failure based on labs, etc. (14) Anemia: (15) Pneumonia: RML - seen on CT abd/pelvis at time of admission (16) Radiation enterocolitis: chronic, with development of chronic pseudo-obstruction of the small intestine. this then led to chronic TPN usage. (17) Chronic pseudo-obstruction of small intestine: (18) Chronic pain syndrome: (19) Ambulatory dysfunction: (20) Severe protein-energy malnutrition: (21) Gastrointestinal tube present: (22) Chronic pancreatitis: (23) On total parenteral nutrition (TPN): (24) Acute kidney injury (EVETTE) with acute tubular necrosis (ATN): (25) Acute metabolic encephalopathy: (26) Acute liver failure: Total Time Total Time Spent Total Time Spent (In Minutes): 20 Discharge Plan Discharge Items Patient Disposition: Discharge Diagnosis: septic shock Other Date/Time: 03/05/22 03:18 Coding Level of Care Code None Diagnoses Bacteremia R78.81 Ascites R18.8 Encounter for palliative care Z51.5 Need for comfort care Generalized pain R52 Hypoglycemia E16.2 Short gut syndrome K91.2 Thrombocytopenia D69.6 Elevated LFTs R79.89 Anemia D64.9 Anemia type: unspecified type Pneumonia J18.9 Radiation enterocolitis K52.0 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
== END 2022-03-05 04:23 | disposition expired | DRG 871 ==
LOC: ED 06:50 → 1E 11:06 → SUATTDRO 11:06 → 1E 11:41 → 3E 03-02 15:26